=== PATIENT | female | born 1930 | race Caucasian/White ===

== ENCOUNTER 2016-11-05 16:45 | Emergency (ER) | payer OTHER ==
[~2016-11-05] VITALS: Ht 172.7 cm; Wt 81.6 kg
[~2016-11-05 16:45] MED LIST: APAP325 MG PO; ARMOUR THYROID120 M1 PO; ARMOUR THYROID120 MG PO; ARMOUR THYROID240 MG PO; ARMOUR THYROID60 M1 PO; ASPIR 8181 MG PO; CALCIUM 600 +1 EA10 PO; CEFTIN250 M1 PO; CEFUROXIME AXE500 MG PO; CEFUROXIME500 MG PO; CENTRUM SILVER1 TA1 PO; CIPRO 250MG250 MG PO; CIPRO 500MG (E500 MG PO; CIPROFLOXACIN250 M2 PO; COUMADIN 1 MG TA1 MG PO; COUMADIN 5 MG TA5 MG PO; COUMADIN2.5 M1 PO; CYCLOBENZAPRINE5 M2 PO; DILANTIN ER 10100 MG PO; FUROSEMIDE20 MG PO; LASIX40 MG PO; NORCO 325 MG-51 TAB PO; PHENYTOIN SODI100 MG PO; SIMVASTATIN20 M2 PO; TYLENOL WITH C1 EACH PO; VITAMIN D31000 UNI2 PO; ZOFRAN ODT4 M1 SL
[2016-11-05 16:54] VITALS: BP 157/80
--- NOTE | 2016-11-05 17:43 | ED GI/GU/ABDOMINAL COMPLAINT ---
History of Present Illness General Chief Complaint: Female Urogenital Problems Stated Complaint: ? UTI Source: patient Exam Limitations: no limitations Vital Signs & Intake/Output Vital Signs & Intake/Output Vital Signs Date Time Temp Pulse Resp B/P Pulse O2 O2 Flow FiO2 Ox Delivery Rate 11/05 1654 98.7 110 18 157/80 97 Room Air Allergies Coded Allergies: clarithromycin (N/V PER PT DAUGHTER 03/04/16) nitrofurantoin (N/V 03/04/16) Triage Note: PT COMPLAINS OF VAGINAL AREA IS VERY ITCHY, WAS TREATED WITH ABT FOR UTI OVER A WEEK AGO, Triage Nurses Notes Reviewed? yes ? N Is pt currently ? No HPI: This patient is an 86-year-old female with a history of recurrent urinary tract infections who presented to the emergency department today brought in by her daughter for evaluation of a possible urinary tract infection. The patient reported that she got over a urinary tract infection approximately 3 weeks ago. She was on ciprofloxacin. The patient reported that he is feeling some vaginal irritation and urinary frequency. No urgency or burning with urination. No blood in the urine. The patient is denying any fevers, chills, abdominal pain, nausea, vomiting, or back pain. (MAMI JACKSON,SONAL) Reconcile Medications Acetaminophen 325 MG CAPSULE 1 CAP PO PRN PAIN (Reported) Furosemide 40 MG TABLET 1 TAB PO PRN DIURETIC (Reported) Phenytoin Sodium Extended 100 MG CAPSULE 1 CAP PO AD SEIZURES (Reported) Phenytoin Sodium Extended 100 MG CAPSULE 2 CAP PO QPM SEIZURES (Reported) Phenytoin Sodium Extended 100 MG CAPSULE 2 CAP PO AD SEIZURES (Reported) Simvastatin (Simvastatin*) 20 MG TABLET 1 TAB PO QPM PREVENTATIVE (Reported) Sulfamethoxazole/Trimethoprim (Bactrim Ds Tablet) 800 MG-160 MG TABLET 1 TAB PO BID UTI Thyroid,Pork ([place] Thyroid) 240 MG TABLET 1 TAB PO DAILY THYROID (Reported) Warfarin Sodium (Coumadin) 2.5 MG TABLET 1 TAB PO DAILY BLOOD THINNER ( Reported) (DORIAN BACA MD) Past History Travel History Traveled to [place] past 21 day No Medical History Any Pertinent Medical History? 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 No (SONAL BOLAÑOS PA-C) Review of Systems Review of Systems Constitutional: Reports: no symptoms. EENTM: Reports: no symptoms. Respiratory: Reports: no symptoms. Cardiovascular: Reports: no symptoms. GI: Reports: no symptoms. Genitourinary: Reports: see HPI. Musculoskeletal: Reports: no symptoms. Skin: Reports: no symptoms. Neurological/Psychological: Reports: no symptoms. All Other Systems: Reviewed and Negative (SONAL BOLAÑOS PA-C) Physical Exam Physical Exam Gastrointestinal: normal bowel sounds, soft, non-tender, no organomegaly, NO REBOUND OR GUARDING. nO MASSES APPRECIATED. nO PERITONEAL SIGNS Comments: Well-developed well-nourished person in no acute distress HEENT: Normal EENT exam, head normocephalic, moist mucous membranes Neck: Supple Back: Normal inspection. No CVA tenderness Cardiovascular: Regular rate and rhythm with no murmurs, rubs or gallops Respiratory: No respiratory distress. Speaking in full sentences Extremity: Normal and equal pulses Neuro: Alert oriented x3, motor sensory normal, cranial nerves II through XII grossly intact. Skin: No appreciable rash on exposed skin, skin is warm and dry. Psych: Mood and affect is normal, memory and judgment is normal. Core Measures ACS in differential dx? No Severe Sepsis Present: No Septic Shock Present: No (SONAL BOLAÑOS PA-C) Progress Differential Diagnosis: hernia, kidney stone, ovarian cyst, ovarian torsion, PID /cervicitis, UTI/pyelo Plan of Care: Orders Procedure Date/time Status Straight Cath 11/05 172 Active CULTURE,URINE 11/05 171 Active URINALYSIS 11/05 1712 Complete Laboratory Tests 11/05/16 1803: Urinalysis LIGHT H, Urine Color STRAW, Urine Clarity CLEAR, Urine pH 6.5, Ur Specific [place] <= 1.005, Urine Protein NEG, Urine Ketones NEG, Urine Nitrite NEG, Urine Bilirubin NEG, Urine Urobilinogen 0.2, Ur Leukocyte Esterase TRACE H , Ur Microscopic SEDIMENT EXAMINED, Urine RBC RARE, Urine WBC RARE, Ur Epithelial Cells MOD H, Urine Hemoglobin TRACE-INTACT, Urine Glucose NEG Microbiology 11/05 1803 URINE ROUT: Urine Culture - RECD Initial ED EKG: none (MAMI JACKSON,SONAL) Departure Departure Disposition: HOME OR SELF CARE Condition: Stable Clinical Impression Primary Impression: Dysuria Referrals: ORTIZ MENDOZA MD (PCP/Family) Additional Instructions: Please take antibiotic as prescribed. Follow-up with your primary care physician. Be sure to stay hydrated. Return for any worsening symptoms or concerns. Departure Forms: Customer Survey General Discharge Information Prescriptions: Current Visit Scripts Sulfamethoxazole/Trimethoprim (Bactrim Ds Tablet) 1 TAB PO BID #10 TAB (SONAL BOLAÑOS PA-C) PA/COGNOS TM1 DEVELOPER Co-Sign Statement Statement: ED Attending supervision documentation- X I saw and evaluated the patient. I have also reviewed all the pertinent lab results and diagnostic results. I agree with the findings and the plan of care as documented in the PA's/COGNOS TM1 DEVELOPER's documentation. [] I have reviewed the ED Record and agree with the PA's/COGNOS TM1 DEVELOPER's documentation. [] Additions or exceptions (if any) to the PAs/COGNOS TM1 DEVELOPER's note and plan are summarized below: [] (PHUONG DINH,DORIAN)
[2016-11-05] MEDS ORDERED: ACETAMINOPHEN325 M3 PO (17:59)
[2016-11-05] MEDS ORDERED: FUROSEMIDE40 M1 PO (18:00)
[2016-11-05] MEDS ORDERED: ARMOUR THYROID240 MG PO (18:00)
[2016-11-05] MEDS ORDERED: BACTRIM DS TAB1 EACH PO (19:08)
== END 2016-11-05 19:25 ==
LOC: ERH 16:45
DX: R30.0 Dysuria (principal)
CPT/HCPCS: 81001; 87086

== ENCOUNTER 2016-12-24 09:05 | Emergency (ER) | payer OTHER ==
[~2016-12-24] VITALS: Ht 167.6 cm; Wt 86.2 kg
[~2016-12-24 09:05] MED LIST changes: +ACETAMINOPHEN325 M3 PO; +BACTRIM DS TAB1 EACH PO; +FUROSEMIDE40 M1 PO
--- NOTE | 2016-12-24 09:20 | ED GI/GU/ABDOMINAL COMPLAINT ---
History of Present Illness General Chief Complaint: Female Urogenital Problems Stated Complaint: ? UTI Source: patient, family Exam Limitations: no limitations Vital Signs & Intake/Output Vital Signs & Intake/Output Vital Signs Date Time Temp Pulse Resp B/P B/P Pulse O2 O2 Flow FiO2 Mean Ox Delivery Rate 12/24 0907 97.3 116 18 162/100 98 Room Air Allergies Coded Allergies: clarithromycin (N/V PER PT DAUGHTER 03/04/16) nitrofurantoin (N/V 03/04/16) Reconcile Medications Acetaminophen 325 MG CAPSULE 1 CAP PO PRN PAIN (Reported) Ciprofloxacin/Hydrocortisone (Cipro Hc Otic Suspension) 0.2 %-1 % DROPS.SUSP 3 GTT OT BID L otitis externa Furosemide 40 MG TABLET 1 TAB PO DAILY NEEDED PRN DIURETIC (Reported) Miconazole Nitrate (Vagistat-3) 200 MG-2 % (9 GRAM) KIT 1 A VAG BID vulvovaginitis Use kit per instructions Phenytoin Sodium Extended 100 MG CAPSULE 1 CAP PO AD SEIZURES (Reported) Phenytoin Sodium Extended 100 MG CAPSULE 2 CAP PO QPM SEIZURES (Reported) Phenytoin Sodium Extended 100 MG CAPSULE 2 CAP PO AD SEIZURES (Reported) Simvastatin (Simvastatin*) 20 MG TABLET 1 TAB PO QPM PREVENTATIVE (Reported) Thyroid,Pork ([place] Thyroid) 240 MG TABLET 1 TAB PO DAILY THYROID (Reported) Warfarin Sodium (Coumadin) 2.5 MG TABLET 1 TAB PO DAILY BLOOD THINNER ( Reported) Triage Nurses Notes Reviewed? yes (no triage note) ? n Is pt currently ? No HPI: Ms. Hansen is a 86 yo f w/ PMH of seizure, [place], A. fib, PE, osteoarthritis, lower extremity edema, L1 compression fracture, hypothyroidism and uterine cancer presenting to the emergency department with a complaint. Patient states over the past 3 days she had increased urinary frequency. No dysuria. She does endorse vaginal itching and swelling. Patient states she is unable to sleep due to the frequency of urinations. Patient denies fever or chills. She denies CVA tenderness or abdominal pain. No nausea, vomiting, diarrhea. No ill contacts. Patient also endorses left ear pain. She states she's had previous ear infections and has been wearing her hearing aids quite regularly, but feels ear fullness on the left. Patient denies any tenderness over the mastoid bone. Past History Travel History Traveled to [place] past 21 day No Medical History Any Pertinent Medical History? 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 No Review of Systems Review of Systems Constitutional: Reports: see HPI. EENTM: Reports: ear pain. Respiratory: Reports: no symptoms. Cardiovascular: Reports: no symptoms. GI: Reports: no symptoms. Genitourinary: Reports: frequency, urgency. Denies: discharge, dysuria, hesitation, nocturia, pain. Musculoskeletal: Reports: no symptoms. Skin: Reports: dryness, erythema. Neurological/Psychological: Reports: no symptoms. Hematologic/Endocrine: Reports: no symptoms. Immunologic/Allergic: Reports: no symptoms. All Other Systems: Reviewed and Negative Physical Exam Physical Exam General Appearance: well developed/nourished, no apparent distress, alert, awake Head: atraumatic, normal appearance, active bleeding Eyes: Bilateral: normal appearance, PERRL, EOMI. Ears, Nose, Throat, Mouth: hard of hearing, exudate in L ear canal, no pain of pinna or tragas. unable to visualize TM Neck: normal inspection, full range of motion Respiratory: normal breath sounds, chest non-tender, no respiratory distress Cardiovascular: regular rate/rhythm, edema, normal peripheral pulses Gastrointestinal: normal bowel sounds, soft, non-tender Rectal: deferred Pelvic: erythematous and swollen vulva. White thick discharge noted from vagina Back: normal inspection, normal range of motion Extremities: bilateral lower extremity edema. +2 pitting to anterior calvert. Neurologic/Psych: no motor/sensory deficits, awake, alert, oriented x 3, normal mood/affect Skin: mild erythema and venous stasis to bilateral legs Core Measures ACS in differential dx? No Severe Sepsis Present: No Septic Shock Present: No Progress Differential Diagnosis: hernia, PID/cervicitis, peptic ulcer, PUD/GERD, UTI/ pyelo, chris Plan of Care: Orders Procedure Date/time Status URINALYSIS 12/24 910 Complete Laboratory Tests 12/24/16 0917: Urine Color YEL, Urine Clarity CLEAR, Urine pH 6.5, Ur Specific [place] <= 1.005 , Urine Protein NEG, Urine Ketones NEG, Urine Nitrite NEG, Urine Bilirubin NEG, Urine Urobilinogen 0.2, Ur Leukocyte Esterase MOD H, Ur Microscopic SEDIMENT EXAMINED, Urine RBC RARE, Urine WBC 1-3 H, Ur Epithelial Cells MANY H, Urine Bacteria MOD H, Urine Hemoglobin TRACE-INTACT, Urine Glucose NEG Patient is well-appearing and nontoxic. Presenting with increased vaginal itching as well as increased urinary frequency. Urinalysis obtained in waiting room which appears to be grossly dirty with many epithelial cells and leukocyte esterase positive. There is very little white blood cells noted in the urine. This is likely a contaminated sample. Physical exam reveals an irritated erythematous. With thick white cottage cheeselike discharge. Patient is given Diflucan here in emergency department and will give prescription for Clement resolved to assist with itching and pain. Patient also noted to have a left otitis externa. Will give ofloxacin drops and have the patient follow up with her primary care doctor in 3-4 days for evaluation of a possible otitis media. Patient's lower extremity edema is chronic in nature and unchanged per the daughter. Will also follow-up with her PMD to assess if using more Lasix would be beneficial in decreasing her leg swelling. (JULIANO DINH,LATASHA) Initial ED EKG: none Departure Departure Time of Disposition: 1030 Disposition: HOME OR SELF CARE Condition: Stable Clinical Impression Primary Impression: Vulvovaginal candidiasis Secondary Impressions: Otitis externa of left ear Qualifiers: Otitis externa type: other infective Chronicity: acute Qualified Code: H60.392 - Other infective otitis externa, left ear Referrals: KELLY DINH,ORTIZ (PCP/Family) Additional Instructions: Please apply the ofloxacin drops to the left ear as indicated on the prescription. Use the Clotrimazole on the external genitalia and within the vagina to assist in decreasing the itching and pain. Departure Forms: Customer Survey General Discharge Information Prescriptions: Current Visit Scripts Miconazole Nitrate (Vagistat-3) 1 A VAG BID #1 KIT Use kit per instructions Ciprofloxacin/Hydrocortisone (Cipro Hc Otic Suspension) 3 GTT OT BID #10 ML
[2016-12-24] MEDS ORDERED: VAGISTAT-31 EACH VAG (10:37)
[2016-12-24] MEDS ORDERED: CIPRO HC OTIC S10 ML OT (10:37)
[2016-12-24 11:01] VITALS: BP 149/66
== END 2016-12-24 11:03 ==
LOC: ERH 09:05
DX: B37.3 Candidiasis of vulva and vagina (principal); H60.92 Unspecified otitis externa, left ear
CPT/HCPCS: 81001

== ENCOUNTER 2017-01-12 10:31 | Inpatient (IN) | payer OTHER ==
[~2017-01-12] VITALS: Ht 167.6 cm; Wt 81.6 kg
[~2017-01-12 10:31] MED LIST changes: +CIPRO HC OTIC S10 ML OT; +VAGISTAT-31 EACH VAG
--- NOTE | 2017-01-12 10:37 | NUR ---
PT TO ED WITH ZULMA, SENT BY DR ALLAN'S OFFICE FOR RAPID HEARTRATE. PT WAS AT ENRIQUETA'S OFFICE THIS AM FOR A CHECK UP, HER HEARTRATE WAS FOUND TO BE FAST. PT THEN SAW NURSE IN DR ALLAN'S OFFICE, EKG WAS DONE. PT SENT TO ED FOR EVAL. PT HAS NO COMPLAINTS.
--- NOTE | 2017-01-12 10:45 | NUR ---
UPON ARRIVAL TO ROOM, PT NOTED TO BE IN RAPID AFIB. IV EST TO RIGHT AC. DR. CLEMONS AWARE AND AT BEDSIDE FOR EVAL.
--- NOTE | 2017-01-12 10:54 | ED CARDIAC/CP/PALPITATIONS ---
History of Present Illness General Chief Complaint: General Adult Stated Complaint: SENT BY DR GARLAND FOR EVAL Source: patient, old records Exam Limitations: no limitations Vital Signs & Intake/Output Vital Signs & Intake/Output Vital Signs Date Time Temp Pulse Resp B/P B/P Pulse O2 O2 Flow FiO2 Mean Ox Delivery Rate 01/12 1227 125 128/82 01/12 1225 125 18 128/82 96 Room Air 01/12 1130 150 116/83 01/12 1128 Room Air Room Air 01/12 1120 150 15 116/83 94 Room Air Room Air 01/12 1106 129 15 111/73 95 Room Air Room Air 01/12 1105 156 20 135/93 01/12 1035 97.2 94 20 135/93 97 Room Air Allergies Coded Allergies: clarithromycin (N/V PER PT DAUGHTER 03/04/16) nitrofurantoin (N/V 03/04/16) Reconcile Medications Acetaminophen 325 MG CAPSULE 1 CAP PO PRN PAIN (Reported) Diphenoxylate HCl/Atropine (Lomotil 2.5-0.025 MG Tablet) 2.5 MG-0.025 MG TABLET 1 TAB PO TID PRN DIARRHEA (Reported) Furosemide 40 MG TABLET 1 TAB PO DAILY NEEDED PRN DIURETIC (Reported) Phenytoin Sodium Extended 100 MG CAPSULE 2 CAP PO QPM SEIZURES (Reported) Phenytoin Sodium Extended 100 MG CAPSULE 1 CAP PO MoThFr SEIZURES (Reported) Phenytoin Sodium Extended 100 MG CAPSULE 2 CAP PO SuTuSa SEIZURES (Reported) Simvastatin (Simvastatin*) 20 MG TABLET 1 TAB PO QPM PREVENTATIVE (Reported) Thyroid,Pork ([place] Thyroid) 240 MG TABLET 1 TAB PO DAILY THYROID (Reported) Warfarin Sodium (Coumadin) 2.5 MG TABLET 1 TAB PO DAILY BLOOD THINNER ( Reported) Triage Note: PT TO ED WITH ZULMA, SENT BY DR GARLAND'S OFFICE FOR RAPID HEARTRATE. PT WAS AT ENRIQUETA'S OFFICE THIS AM FOR A CHECK UP, HER HEARTRATE WAS FOUND TO BE FAST. PT THEN SAW NURSE IN DR GARLAND'S OFFICE, EKG WAS DONE. PT SENT TO ED FOR EVAL. PT HAS NO COMPLAINTS. Triage Nurses Notes Reviewed? yes HPI: Patient had a routine visit with her primary care physician this morning. Patient was found to be tachycardic and then uncontrolled A. fib. 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 At landscape foreman office she had EKG which confirmed A. fib with RVR. Patient sent to the emergency room for evaluation. Patient denies any chest pain or palpitations. There is no shortness of breath. No dyspnea on exertion. No orthopnea. No nausea or vomiting. Past History Travel History Traveled to [place] past 21 day No Medical History Any Pertinent Medical History? 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 No Review of Systems Review of Systems Constitutional: Reports: no symptoms. EENTM: Reports: no symptoms. Respiratory: Reports: no symptoms. Cardiovascular: Reports: no symptoms. GI: Reports: no symptoms. Genitourinary: Reports: no symptoms. Musculoskeletal: Reports: no symptoms. Skin: Reports: no symptoms. Neurological/Psychological: Reports: no symptoms. Hematologic/Endocrine: Reports: no symptoms. Immunologic/Allergic: Reports: no symptoms. All Other Systems: Reviewed and Negative Physical Exam Physical Exam General Appearance: well developed/nourished, alert, awake, mild distress Head: atraumatic, normal appearance Eyes: Bilateral: PERRL, EOMI. Ears, Nose, Throat: normal pharynx, normal ENT inspection, hearing grossly normal Neck: normal inspection, supple, full range of motion Respiratory: normal breath sounds, chest non-tender, no respiratory distress, lungs clear Cardiovascular: normal peripheral pulses, tachycardia, irregularly irregular Gastrointestinal: normal bowel sounds, soft, non-tender, no organomegaly Back: normal inspection, normal range of motion Extremities: normal inspection, normal capillary refill, normal range of motion, no edema Neurologic/Psych: no motor/sensory deficits, awake, alert, oriented x 3, normal gait, normal mood/affect Skin: intact, normal color, warm/dry Lymphatic: no anterior cervical ling Core Measures ACS in differential dx? Yes ASA ordered for poss ACS? No-ACS ruled out Severe Sepsis Present: No Septic Shock Present: No Progress Differential Diagnosis: AMI, atrial fibrillation, hyperthyroid, myocarditis, pericarditis, pneumonia, pneumothorax, pulmonary embolism Plan of Care: Orders Procedure Date/time Status Regular Diet 01/12 D Active Saline Lock 01/12 1244 Active Misc Message 01/12 1244 Active ED Holding Orders 01/12 1244 Active Vital Signs 01/12 1244 Active Activity/Ambulation 01/12 1244 Active Code Status 01/12 1244 Active Patient Data 01/12 1235 Active Telemetry/Manager Part 01/12 1053 Active TROPONIN LEVEL 01/12 1053 Complete PARTIAL THROMBOPLASTIN TIME 01/12 1053 Complete PROTHROMBIN TIME 01/12 1053 Complete MAGNESIUM 01/12 1053 Complete DILANTIN 01/12 1053 Complete COMPREHENSIVE METABOLIC PANEL 01/12 1053 Complete CBC WITHOUT DIFFERENTIAL 01/12 1053 Complete EKG 01/12 1037 Active Current Medications Sig/Liudmila Start time Last Medication Dose Stop Time Status Admin Diltiazem HCl 125 MG Q12H 01/12 1215 AC (Cardizem DRIP) Dextrose/Water 100 ML (D5W) Laboratory Tests 01/12/17 1105: Anion Gap 6, Estimated GFR > 60, BUN/Creatinine Ratio 18.3, Glucose 86, Calcium 9.0, Magnesium 1.8, Total Bilirubin 0.7, AST 31, ALT 39, Alkaline Phosphatase 164 H, Troponin I < 0.01, Total Protein 6.9, Albumin 3.5, Globulin 3.4, Albumin /Globulin Ratio 1.0 L, PT 26.3 H, INR 2.53 H, APTT 39 H, CBC w Diff NO MAN DIFF REQ, RBC 4.37, MCV 90.6, MCH 29.3, RDW 15.2 H, MPV 9.1, Gran % 66.6, Lymphocytes % 17.3 L, Monocytes % 13.6 H, Eosinophils % 2.1, Basophils % 0.4, Absolute Granulocytes 3.2, Absolute Lymphocytes 0.8 L, Absolute Monocytes 0.6, Absolute Eosinophils 0.1, Absolute Basophils 0, PUBS MCHC 32.4 L, Phenytoin 8.0 L Diagnostic Imaging: Viewed by Me: Radiology Read. Discussed w/RAD: Radiology Read. Initial ED EKG: AFIB WITH RVR AND NSSTT CHANGES. Prior EKG: changed Rhythm Strip: atrial fibrillation Comments: After 2 doses of IV Cardizem her heart rate remains elevated in the 1 teens to 120s. At this point Cardizem drip will be started. Dr. Garland and has been consult. Departure Departure Disposition: STILL A PATIENT Condition: Guarded Clinical Impression Primary Impression: Atrial fibrillation with RVR Referrals: ORTIZ MENDOZA MD (PCP/Family) Departure Forms: Customer Survey General Discharge Information Admission Note Spoke With: ANÍBAL LUDWIG MD Documentation of Exam: Documentation of any treatments & extenuating circumstances including Concerns Regarding Discharge (functional status, medication knowledge or non-compliance, living conditions, etc.) that warrant an admission rather than observation: [ Cardizem drip, cardiology consultation, telemetry monitoring, serial enzymes] Critical Care Note Critical Care Note Critical Care Time: mins: (75 MIN)
--- NOTE | 2017-01-12 11:09 | NUR ---
PT MEDICATED WITH CARDIZEM PER EMAR. RADHA ALVARADO VERIFIED DOSE.
[2017-01-12 11:16] LABS: ABSOLUTE BASOPHIL COUNT 0 /CUMM (0.0-0.2); ABSOLUTE EOSINOPHIL COUNT 0.1 /CUMM (0.0-0.7); ABSOLUTE GRANULOCYTE CT 3.2 /CUMM (1.4-6.5); ABSOLUTE LYMPH COUNT 0.8 /CUMM (1.2-3.4); ABSOLUTE MONOCYTE COUNT 0.6 /CUMM (0.10-0.60); BASOPHIL % 0.4 % (0.0-2.0); EOSINOPHIL % 2.1 % (0-5); GRANULOCYTE % 66.6 % (42.2-75.2); HEMATOCRIT 39.6 % (37-47); MEAN CORPUSCULAR HGB 29.3 PG (27.0-31.0); MEAN CORPUSCULAR HGB CONC 32.4 G/DL (33.0-37.0); MEAN CORPUSCULAR VOLUME 90.6 FL (81.0-99.0); MEAN PLATELET VOLUME 9.1 FL (7.4-10.4); PLATELET COUNT 170 /CUMM (130-400); RBC DISTRIBUTION WIDTH 15.2 % (11.5-14.5); RED BLOOD CELL CT 4.37 /CUMM (4.20-5.40); WHITE BLOOD CELL COUNT 4.7 /CUMM (4.8-10.8)
--- NOTE | 2017-01-12 11:16 | RADIOLOGY REPORT ---
EXAMINATION: XR PORTABLE CHEST CLINICAL INFORMATION: Chest pain COMPARISON: 08/01/2016 TECHNIQUE: Portable frontal view of the chest was obtained. FINDINGS: Lung volumes are symmetric. There is a small right pleural effusion with adjacent basilar opacity. There is also patchy opacity at the left lung base with a suspected trace pleural effusion. No pneumothorax is seen. There is mild fullness of the central vasculature. Cardiac size is within normal limits. Calcification is present at the aortic arch. No acute osseous findings are seen. IMPRESSION: Small right and trace left pleural effusions with adjacent bibasilar opacities which may reflect atelectasis or potentially developing consolidation. A component of central vascular congestion may be present.
[2017-01-12] MEDS ORDERED: LOMOTIL 2.5-0.1 EACH PO (11:17)
[2017-01-12 11:25] LABS: PT 26.3 SEC (9.4-12.5); PTT 39 SEC (25-37)
--- NOTE | 2017-01-12 11:30 | NUR ---
PT MEDICATED WITH SECOND DOSE OF 10 MG CARDIZEM PUSH FOR RAPID AFIB BETWEEN 120 AND 150.
--- NOTE | 2017-01-12 12:16 | NUR ---
PHARMACY CALLED FOR GABRIELA BARON
--- NOTE | 2017-01-12 12:49 | NUR ---
PHARM WILL BRING GABRIELA MARTINEZ.
--- NOTE | 2017-01-12 13:00 | NUR ---
PT'S HEART RATE CONTINUES TO BE WNL THEN INCREASES TO 130'S AND OCCASIONALLY 140'S. CARDIZEM GTT INFUSING NOW AT 10ML/HR.
--- NOTE | 2017-01-12 13:05 | NUR ---
PT TO ROOM 178 BED1
--- NOTE | 2017-01-12 13:14 | NUR ---
REPORT GIVEN TO WARNER ALVARADO.
--- NOTE | 2017-01-12 13:30 | NUR ---
PT ASSISTED OFF COMMODE AND ONTO STRETCHER. PT REFUSING TO REMOVE PANTS, AWARE.
--- NOTE | 2017-01-12 13:47 | History & Physical ---
See Addendum MELISSA DINHRAEANN 01/12/17 0402: General Information and HPI Statement: I have seen and personally examined GABBY BASS and documented this H&P. The patient is a 87 year old F who presented with a patient stated chief complaint of []. Exam Limitations: no limitations History of Present Illness: This is a 87-year-old with past medical history of pulmonary embolism currently on Coumadin therapy, hypothyroidism, history of hyperlipidemia paroxysmal atrial fibrillation and was previously on metoprolol therapy who presented to the [facility] after being referred from the primary care physician for elevated heart rate. The patient's EKG done in the emergency department showed rapid atrial fibrillation and was then asked by the ordinary seaman to come and evaluated in the hospital. When I saw the patient the patient was awake alert oriented without any distress and did not have any palpitations or chest pain. The patient who was present at the bedside told that the patient has been having persistent watery diarrhea for the last 3-5 days and has been becoming antidiarrheal medications. She does not have the patient denies any chest pain palpitations. She also has noticd increased swelling of her leg. She takes lasix as needed for her leg swelling.She has been taking them once a week. 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 Needs Assist: bathing. Ambulation: after fall patient has been largely non ambulatory. IADLs Independent: medication admin. Needs Assist: housework, food prep, transportation. Unknown: shopping, finances, telephone. Review of Systems Review of Systems Constitutional: Reports: see HPI. EENTM: Reports: see HPI. Musculoskeletal: Reports: see HPI. Exam & Diagnostic Data Last 24 Hrs of Vital Signs/I&O Vital Signs Date Time Temp Pulse Resp B/P B/P Pulse O2 O2 Flow FiO2 Mean Ox Delivery Rate 01/12 1352 97.7 105 18 124/68 96 Room Air 01/12 1227 125 128/82 01/12 1225 125 18 128/82 96 Room Air 01/12 1130 150 116/83 01/12 1128 Room Air Room Air 01/12 1120 150 15 116/83 94 Room Air Room Air 01/12 1106 129 15 111/73 95 Room Air Room Air 01/12 1105 156 20 135/93 01/12 1035 97.2 94 20 135/93 97 Room Air Intake & Output 01/12 1600 01/12 0800 01/12 0000 Intake Total 0 Output Total Balance 0 Intake, Oral 0 Patient 180 lb Weight Weight Estimated Measurement Method Physical Exam General Appearance Alert, Oriented X3, Cooperative Skin No Rashes, No Breakdown Skin Temp/Moisture Exam: Cool/Dry HEENT Atraumatic, PERRLA Neck No JVD, No thryomegaly Lymphatic Axillary nl Cardiovascular irregulalrly irregular Abdomen Soft, No Tenderness Extremities right leg swelling with some reddness. 2+ leg edema. Assessment/Plan Assessment: This is a 87-year-old female with a past medical history of paroxysmal atrial fibrillation DVT/pulmonary embolism on any coagulation with Coumadin therapy who presented to the [facility] after being referred by the primary care physician for persistent tachycardia. In the ER the patient was found to be in rapid atrial fibrillation with rapid ventricular response Vitals at the time of admission showed a blood pressure of 158/60 heart rate of 1 65/m respiration rate of 18, saturation of 96% on room air Labs at the time of admission shows WBC of 4700, normal hemoglobin and hematocrit, INR of 2.75 Chest x-ray: Small right and trace left pleural effusions with adjacent bibasilar opacities which may reflect atelectasis or potentially developing consolidation. A component of central vascular congestion may be present. Assessment 1. Atrial fibrillation with rapid ventricular response: The patient might be in rapid ventricular response most likely secondary to acurte dirrhea an acute underlying diarrhea which is likely viral in origin. 2. History of hypothyroidism 3. History of hyperlipidemia History of pulmonary embolism on Coumadin therapy 4. History of seizures currently on phenytoin 5.Unilater swelling of the leg and reddness. Plan Admit to telemetry floor Start the patient on IV Cardizem drip at 10 ml/min Anticoagulation with Coumadin continue trending INR currently therapeutic we will dose the Coumadin tomorrow as per the INR. Check serial troponins and EKG Continue with other home medications DVT prophylaxis as maintain the Coumadin Pain pathway We can wait on cardiology and comment on the comtinuation of lasix. Will do US dooppler of the right leg to r/o dvt. Transthoracic echocardiogram send sample to lab for c diff if has persistent diarrhea. Dr. Oneal has been consulted to follow the patient with us As Ranked By This Provider Problem List: 1. Atrial fibrillation with RVR 2. Elevated INR Core Measures/Miscellaneous Acute Coronary Syndrome ACS Diagnosis: No Cerebrovascular Accident CVA/TIA Diagnosis: No Congestive Heart Failure CHF Diagnosis: No Venous Thromboembolism VTE Risk Factors: Acute medical illness, Age > 40 No [facility] VTE prophylaxis d/t: VTE low risk, No contraindications No VTE Pharm Prophylaxis d/t: VTE low risk, No contraindications VTE Diagnosis: No VTE Type: NONE VTE Confirmed by (Test): NONE Severe Sepsis Severe Sepsis Present: No Septic Shock Septic Shock Present: No Miscellaneous Documentation Attending Case Discussed With: LETA GAMBINO MD [facility] Physician[facility] Patient sees these Specialists dr oneal Level of Patient Care: Telemetry LETA GAMBINO MD 01/12/17 1627: General Information and HPI Allergies/Medications Home Med list Acetaminophen 325 MG CAPSULE 1 CAP PO PRN PAIN (Reported) Diphenoxylate HCl/Atropine (Lomotil 2.5-0.025 MG Tablet) 2.5 MG-0.025 MG TABLET 1 TAB PO TID PRN DIARRHEA (Reported) Furosemide 40 MG TABLET 1 TAB PO DAILY NEEDED PRN DIURETIC (Reported) Phenytoin Sodium Extended 100 MG CAPSULE 2 CAP PO BID SEZIURES (Reported) Simvastatin (Simvastatin*) 20 MG TABLET 1 TAB PO QPM PREVENTATIVE (Reported) Thyroid,Pork ([place] Thyroid) 240 MG TABLET 1 TAB PO DAILY THYROID (Reported) Warfarin Sodium (Coumadin) 2.5 MG TABLET 1 TAB PO DAILY BLOOD THINNER ( Reported) Attending MD Review Statement Attending Statement Attending MD Statement: examined this patient, discuss w/resident/PA/EMPLOYEE RELATIONS ADVISOR, agreed w/resident/PA/EMPLOYEE RELATIONS ADVISOR, reviewed EMR data (avail), discussed with nursing, reviewed images, amended to note Attending Assessment/Plan: The patient is an 87 yo female with h/o pulmonary embolism (on chronic coumadin therapy), hypothyroidism, HL, PAF (prior Metoprolol therapy that was discontinued as she had been in NSR) and seizure disorder who presented in the ED from her PCP with tachycardia and recurrent atrial fibrillation with RVR (HR 150). The patient denied any palpitations, chest pain, or dyspnea. She has has some loose bowel movements over last week. 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 Physical Exam: VS: T 97.2, P 94-150, R 15-20, BP 124/68, PO 96% HEENT: eyes- PERRLA, EOMI rory- moist mucosa Neck: no JVD or bruits Chest: clear Cor: tachy, irreg, nl S1, S2 w/o murm Abd: BS+, soft, NT Ext: + bilateral edema (tr-1+ on left; 2+ on right) with stasis changes and erythema on distal RLE (pretibial) (patient states edema improved since yesterday) Neuro: alert, non-focal exam Labs/Tests- as above Impression/Plan: #Recurrent Atrial Fibrillation with Rapid Ventricular Response- as above, patient was largely asymptomatic. Had previously been on beta christopher ( metoprolol) which had been stopped as had been in NSR. Is therapeutic on Coumadin. Plan: Admit to telemetry- IV Cardizem drip begun. Check serial troponin I levels. Cardiology consult Dr. Oneal. Continue Coumadin. Will check TSH. #Lower Extremity Edema- is asymmetric with RLE>LLE and patient notes significant increase in RLE in last 2 days. Most likely venous stasis and ?secondary to afib. Doubt DVT with therapeutic INR. Plan: Elevate legs. Check venous duplex RLE. Continue Lasix. #Hypothyroid- on [place] thyroid. Plan: As above, will check TSH/Free T4/T3. #Hyperlipidemia- on Simvastatin. Plan: Continue Simvastatin. #H/O ?Seizure Disorder- on Dilantin. Plan: Continue Dilantin. #Diarrhea- none at present. Plan: Check stool studies if diarrhea continues.
[2017-01-12 13:52] VITALS: BP 124/68
[2017-01-12] MEDS ORDERED: DILANTIN100 M1 PO (16:26)
--- NOTE | 2017-01-12 16:27 | Admission Certification ---
Admission Certification Certification Statement - As attending physician, I certify that at the time of - admission, based on clinical presentation, severity of - symptoms, need for further diagnostic testing and - therapeutic interventions, and risk of adverse outcomes - without in-hospital treatment, in my clinical assessment, - this patient requires an acute hospital stay for a minimum - of two nights or longer. I have also considered psychsocial - factors such as support system, advanced age, financial - issues, cognitive issues, and failed out-patient treatments, - past re-admission history, safety of patient, and lack of - compliance as applicable. Specific rationale supporting this admission is: The patient presents with recurrent atrial fibrillation with rapid ventricular rate. Requires admission to telemetry for IV Cardizem drip, serial troponin levels, Cardiology consult. RLE venous duplex.
--- NOTE | 2017-01-12 16:38 | NUR ---
PT TO HAVE US DONE AT THE BEDSIDE AT 2029. OK PER RAEANN
[2017-01-12 16:39] VITALS: BP 114/68
--- NOTE | 2017-01-12 17:49 | Cons- Cardiology ---
General Information and HPI Consulting Request Date of Consult: 01/12/17 Requested By: LETA GAMBINO MD Reason for Consult: Atrial fibrillation with a rapid ventricular response. Source of Information: patient, old records Exam Limitations: poor historian History of Present Illness: Mrs. Cherelle Hansen is an 87-year-old female with a long-standing history of tobacco use, COPD, hypothyroidism, dyslipidemia, seizure disorder, possible TIA, and remote brief bouts of atrial fibrillation versus SVT who presented from her PCPs office (Gaby Hudson M.D.) after she was found to be tachycardic with an irregularly irregular suspicious for atrial fibrillation. In the ED the suspicion of her being in atrial fibrillation with a rapid ventricular response was confirmed. She received IV diltiazem 10 mg 2 with transient improvement in the ventricular response, but then returned to the more rapid 140+ bpm rates and, as such, was placed on an IV diltiazem drip at 10 mg/ hour. Of note is the fact that she was evaluated and treated for a urinary tract infection a couple of weeks back and subsequent to that developed diarrhea. She also has chronic intermittent bilateral lower extremity edema, right greater than left, but as noted this to the much more severe of late. When she was first discovered to be having brief intermittent bouts of PAF vs SVT in September 2011, she had been experiencing significant diarrhea and was mildly hypokalemic. She was not placed on long-term anticoagulation at that time given a history of recurrent falls, one of which included a head strike. She was last hospitalized here (03/06-03/08/2016) after presenting with shortness of breath and the discovery of multiple pulmonary emboli. Her last echocardiogram (05/01/2014) revealed: A normal size left ventricle with mild concentric left ventricular hypertrophy, and normal systolic function with an estimated ejection fraction of 55%, normal right ventricular size and function, mild biatrial dilatation, he age-related valvular changes, no pericardial effusion, and a normal size aortic root. The Doppler portion of the study revealed mild mitral, mild aortic, mild tricuspid, and trace pulmonic regurgitation, moderate pulmonary hypertension, and stage I diastolic dysfunction. Allergies/Medications Allergies: Coded Allergies: clarithromycin (N/V PER PT DAUGHTER 03/04/16) nitrofurantoin (N/V 03/04/16) Home Med List: Acetaminophen 325 MG CAPSULE 1 CAP PO PRN PAIN (Reported) Diphenoxylate HCl/Atropine (Lomotil 2.5-0.025 MG Tablet) 2.5 MG-0.025 MG TABLET 1 TAB PO TID PRN DIARRHEA (Reported) Furosemide 40 MG TABLET 1 TAB PO DAILY NEEDED PRN DIURETIC (Reported) Phenytoin Sodium Extended 100 MG CAPSULE 2 CAP PO BID SEZIURES (Reported) Simvastatin (Simvastatin*) 20 MG TABLET 1 TAB PO QPM PREVENTATIVE (Reported) Thyroid,Pork ([place] Thyroid) 240 MG TABLET 1 TAB PO DAILY THYROID (Reported) Warfarin Sodium (Coumadin) 2.5 MG TABLET 1 TAB PO DAILY BLOOD THINNER ( Reported) Review of Systems Review of Systems: A 14 point system review was obtained and was noncontributory, other than for the fact that she has hearing loss, bilateral hearing aids, decreased vision, wears glasses, etc. 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 Home Services at Home: None, [facility] Primary Language: Telugu Smoking Status: Never Smoked ETOH Use: denies use Illicit Drug Use: denies illicit drug use Functional Ability ADLs Independent: dressing, eating, toileting. Needs Assist: bathing. Ambulation: after fall patient has been largely non ambulatory. IADLs Independent: medication admin. Needs Assist: housework, food prep, transportation. Unknown: shopping, finances, telephone. Exam & Diagnostic Data Vital Signs and I&O Vital Signs Date Time Temp Pulse Resp B/P B/P Pulse O2 O2 Flow FiO2 Mean Ox Delivery Rate 01/12 1639 97.7 114 18 114/68 93 Room Air 01/12 1352 97.7 105 18 124/68 96 Room Air 01/12 1227 125 128/82 01/12 1225 125 18 128/82 96 Room Air 01/12 1130 150 116/83 01/12 1128 Room Air Room Air 01/12 1120 150 15 116/83 94 Room Air Room Air 01/12 1106 129 15 111/73 95 Room Air Room Air 01/12 1105 156 20 135/93 01/12 1035 97.2 94 20 135/93 97 Room Air Intake & Output 01/12 1600 01/12 0800 01/12 0000 01/11 1600 01/11 0800 01/11 0000 Intake Total 0 Output Total Balance 0 Intake, Oral 0 Patient 180 lb Weight Weight Estimated Measurement Method Physical Exam: Well-developed, overweight elderly female in no acute distress with nasal oxygen in place. Vital signs: See above. HEENT: Normocephalic, atraumatic, EOMI, slightly dry mucous membranes. Neck: No JVD, no bruits. Lungs: Decreased breath sounds bilaterally with mild bilateral expiratory wheezing. Heart: S1, S2 with grade 1-2/6 systolic murmur best heard near the base. PMI fifth ICS at MCL. No gallop or rub ratio. Abdomen: Soft, nontender, positive bowel sounds. Extremities: Bilateral lower extremity erythema and edema: 2+ right, 1-2+ left. Labs/Kurt Results: Laboratory Tests 01/12 1105 Chemistry Sodium (137 - 145 mmol/L) 140 Potassium (3.5 - 5.1 mmol/L) 4.3 Chloride (98 - 107 mmol/L) 107 Carbon Dioxide (22 - 30 mmol/L) 28 Anion Gap (5 - 16) 6 BUN (7 - 17 mg/dL) 11 Creatinine (0.5 - 1.0 mg/dL) 0.6 Estimated GFR (>60 ml/min) > 60 BUN/Creatinine Ratio (7 - 25 %) 18.3 Glucose (65 - 99 mg/dL) 86 Calcium (8.4 - 10.2 mg/dL) 9.0 Magnesium (1.6 - 2.3 mg/dL) 1.8 Total Bilirubin (0.2 - 1.3 mg/dL) 0.7 AST (14 - 36 U/L) 31 ALT (9 - 52 U/L) 39 Alkaline Phosphatase (<127 U/L) 164 H Troponin I (< 0.11 ng/ml) < 0.01 Total Protein (6.3 - 8.2 g/dL) 6.9 Albumin (3.5 - 5.0 g/dL) 3.5 Globulin (1.9 - 4.2 gm/dL) 3.4 Albumin/Globulin Ratio (1.1 - 2.2 %) 1.0 L TSH (0.270 - 4.200 uIU/mL) 0.995 Free T4 (0.85 - 1.93 ng/dL) 1.17 Coagulation PT (9.4 - 12.5 SEC) 26.3 H INR (0.90 - 1.19) 2.53 H APTT (25 - 37 SEC) 39 H Hematology CBC w Diff NO MAN DIFF REQ WBC (4.8 - 10.8 /CUMM) 4.7 L RBC (4.20 - 5.40 /CUMM) 4.37 Hgb (12.0 - 16.0 G/DL) 12.8 Hct (37 - 47 %) 39.6 MCV (81.0 - 99.0 FL) 90.6 MCH (27.0 - 31.0 PG) 29.3 RDW (11.5 - 14.5 %) 15.2 H Plt Count (130 - 400 /CUMM) 170 MPV (7.4 - 10.4 FL) 9.1 Gran % (42.2 - 75.2 %) 66.6 Lymphocytes % (20.5 - 51.1 %) 17.3 L Monocytes % (1.7 - 9.3 %) 13.6 H Eosinophils % (0 - 5 %) 2.1 Basophils % (0.0 - 2.0 %) 0.4 Absolute Granulocytes (1.4 - 6.5 /CUMM) 3.2 Absolute Lymphocytes (1.2 - 3.4 /CUMM) 0.8 L Absolute Monocytes (0.10 - 0.60 /CUMM) 0.6 Absolute Eosinophils (0.0 - 0.7 /CUMM) 0.1 Absolute Basophils (0.0 - 0.2 /CUMM) 0 PUBS MCHC (33.0 - 37.0 G/DL) 32.4 L Toxicology Phenytoin (10.0 - 20.0 ug/mL) 8.0 L Diagnostic Data EKG Results (01/12/2017) atrial fibrillation with a rapid ventricular response and minor nondiagnostic T-wave abnormalities in diffuse leads. No significant change from tracing performed in our office earlier today. CXR Results (01/12/2017) Small right and trace left pleural effusions with adjacent bibasilar opacities which may reflect atelectasis or potentially developing consolidation. A component of central vascular congestion may be present. Assessment/Plan Assessment/Plan 87-year-old female with a long-standing history of tobacco use, COPD, hypothyroidism, HLD, seizure disorder, possible TIA, multiple pulmonary emboli for which she was placed on warfarin anticoagulation April 2014, and brief bouts of PAF vs SVT in September 2011 w/o long-term anticoagulation given fall risk who presented from her PCPs (Gaby Hudson M.D.) office after she was found to be tachycardic with an irregularly irregular pulse suspicious for atrial fibrillation with a rapid ventricular response and worsening right lower extremity edema. In the ED the suspicion of her being in atrial fibrillation with a rapid ventricular response was confirmed. She received IV diltiazem 10 mg 2 with transient improvement in the ventricular response, but then returned to the more rapid 140+ bpm rates and, as such, was placed on an IV diltiazem drip at 10 mg/ hour. Recommendations: * Telemetry admission, follow-up ECG and troponins. * Continue IV diltiazem for control of the ventricular response to her atrial fibrillation. * When rate control achieved switch to by mouth diltiazem according to the formula: Total oral daily dosage (mg/day) = [rate (mg/hr) 3+3] 10. Eg.: 3 mg/hr IV would be roughly equal 120 mg/day by mouth. * Cut back on simvastatin dosage to 10 mg daily given potential interaction with diltiazem and results of recent lipid panel. * Replete potassium and aim to maintain a level of between 4.0-4.5 mEq per liter. * Replete magnesium and aim to maintain level at or above 2.0 mEq per liter. * Gently diurese based on physical examination, chest x-ray findings, etc. * Schedule echocardiogram to reassess left ventricular systolic function, degree of left ventricular hypertrophy, atrial size, PA pressure, etc. * Note normal TSH and continue thyroid replacement. * Given recent increase in lower extremity edema, an ultrasound was scheduled. * Continue warfarin anticoagulation for goal INR 2.5 (range 2.0-3.0). We will discuss switching from warfarin to an NOAC on an outpatient basis. * DVT prophylaxis being addressed by anticoagulation for previous pulmonary embolism and now atrial fibrillation. * If further diarrhea, check stool for C. difficile given recent antimicrobial therapy for UTI. Further recommendations will follow, Thank you. Consult Acknowledgment - Thank you for your consult request.
--- NOTE | 2017-01-12 21:42 | ULTRASOUND REPORT ---
EXAMINATION: US TRIPLEX LOWER EXTREMITY, RIGHT CLINICAL INFORMATION: Edema. Swelling. Inflammation. Skin change COMPARISON: None TECHNIQUE: Color-flow triplex imaging with spectral analysis and compression Doppler were performed on the lower extremity. FINDINGS: Respiratory variation, normal compression and augmented flow are noted throughout the left lower extremity. The visualized common femoral vein, superficial femoral vein, profunda femoral vein, popliteal vein and midcalf peroneal and posterior tibial venous segments show no evidence of deep venous thrombosis. There is no Victor's cyst. IMPRESSION: Normal triplex scan without evidence of deep venous thrombosis involving the lower extremity.
[2017-01-12 22:00] VITALS: BP 140/80
[2017-01-13 01:17] VITALS: BP 120/70
[2017-01-13] MEDS ORDERED: PHENYTOIN SODI100 MG PO (06:59)
[2017-01-13 08:00] VITALS: BP 110/60
[2017-01-13 08:27] LABS: PT 26.3 SEC (9.4-12.5)
[2017-01-13 08:48] LABS: ABSOLUTE BASOPHIL COUNT 0 /CUMM (0.0-0.2); ABSOLUTE EOSINOPHIL COUNT 0.1 /CUMM (0.0-0.7); ABSOLUTE GRANULOCYTE CT 2.7 /CUMM (1.4-6.5); ABSOLUTE LYMPH COUNT 0.8 /CUMM (1.2-3.4); ABSOLUTE MONOCYTE COUNT 0.7 /CUMM (0.10-0.60); BASOPHIL % 0.4 % (0.0-2.0); EOSINOPHIL % 2.6 % (0-5); GRANULOCYTE % 62.4 % (42.2-75.2); HEMATOCRIT 35.1 % (37-47); MEAN CORPUSCULAR HGB 29.8 PG (27.0-31.0); MEAN CORPUSCULAR HGB CONC 32.5 G/DL (33.0-37.0); MEAN CORPUSCULAR VOLUME 91.5 FL (81.0-99.0); MEAN PLATELET VOLUME 9.4 FL (7.4-10.4); PLATELET COUNT 151 /CUMM (130-400); RBC DISTRIBUTION WIDTH 15.5 % (11.5-14.5); RED BLOOD CELL CT 3.83 /CUMM (4.20-5.40); WHITE BLOOD CELL COUNT 4.4 /CUMM (4.8-10.8)
--- NOTE | 2017-01-13 09:46 | PN- Housestaff ---
JERI RAZO 01/13/17 0946: Subjective Follow-up For: Atrial fibrillation with rapid ventricular response Complaints: no complaints Tele-Events Since Last Visit: Atrial fibrillation, heart rate ranges from 82-101, no overnight events Subjective: Patient was seen and examined this morning. She was sitting comfortably on chair without any complaints. She denied chest pain, chest palpitations, chest pressure, abdominal pain, any bowel complaints at the moment. She had no diarrheal bowel movement overnight. Normal signs and remained afebrile with temperature 97.8, pulse 90, respiratory rate 20, blood pressure 110/60 and she is saturating 94% on room air. Review of Systems Constitutional: Denies: chills, diaphoresis, fever. Cardiovascular: Reports: edema. Denies: chest pain, orthopena. Respiratory: Denies: hemoptysis, orthopnea. Gastrointestinal: Denies: constipation, diarrhea. Genitourinary: Reports: dysuria. Denies: frequency. Objective Last 24 Hrs of Vital Signs/I&O Vital Signs Date Time Temp Pulse Resp B/P B/P Pulse O2 O2 Flow FiO2 Mean Ox Delivery Rate 01/13 0800 97.8 90 20 110/60 94 Room Air 01/13 0117 98.0 77 18 120/70 94 Room Air 01/12 2200 98.4 100 18 140/80 94 Room Air 01/12 2200 98.4 100 18 140/80 94 Room Air 01/12 1639 97.7 114 18 114/68 93 Room Air 01/12 1352 97.7 105 18 124/68 96 Room Air 01/12 1227 125 128/82 01/12 1225 125 18 128/82 96 Room Air 01/12 1130 150 116/83 01/12 1128 Room Air Room Air 01/12 1120 150 15 116/83 94 Room Air Room Air Intake & Output 01/13 1600 01/13 0800 01/13 0000 Intake Total 180 Output Total 400 500 Balance -220 -500 Intake, IV 80 Intake, Oral 100 Output, Urine 400 500 Physical Exam General Appearance: Alert, Oriented X3, Cooperative, No Acute Distress Neck: Supple, No JVD Cardiovascular: Normal S1, Normal S2, No Murmurs, IRREGULARLY IRREGULAR Lungs: Normal Air Movement Abdomen: Soft, No Tenderness Neurological: Normal Speech, Normal Tone Extremities: BILATERAL LOWER EXTREMITY EDEMA , RIGHT MORE THAN LEFT Current Medications: Current Medications Sig/Liudmila Start time Last Medication Dose Route Stop Time Status Admin Acetaminophen 650 MG Q6P PRN 01/13 2000 AC PO Acetaminophen 325 MG Q6P PRN 01/12 1415 AC PO Acetaminophen/ 1 TAB Q6P PRN 01/13 2000 AC 01/13 Hydrocodone Bitart PO 0658 Atorvastatin Calcium 10 MG 1700 01/12 1700 AC 01/12 PO 1621 Diltiazem HCl 0 .STK-MED ONE 01/12 1225 DC .ROUTE Diltiazem HCl 10 MG ONCE ONE 01/12 1215 DC 01/12 IV 01/12 1216 1227 Diltiazem HCl 125 MG Q12H 01/12 1215 AC 01/13 Dextrose/Water 100 ML IV 0110 Diltiazem HCl 10 MG ONCE ONE 01/12 1130 DC 01/12 IV PUSH 01/12 1131 1130 Furosemide 40 MG DAILY 01/13 1000 AC 01/13 PO 1101 Hydromorphone HCl 0.5 MG Q4P PRN 01/13 2000 AC IV Magnesium Oxide 400 MG ONE ONE 01/12 1845 DC 01/12 PO 01/12 1846 1943 Nystatin 1 ANUPAM TID 01/12 1854 AC 01/13 TOP 1101 Patient Medication 1 UNIT ONE NR 01/12 1845 DC Teaching ED 01/12 1900 Phenytoin 200 MG SuTuSa 01/13 1415 CAN PO Phenytoin 200 MG QPM 01/12 2200 CAN PO Phenytoin 200 MG BID 01/12 2200 AC 01/13 PO 1101 Phenytoin 100 MG ONCE ONE 01/12 1900 DC 01/12 PO 01/12 1901 1943 Phenytoin 100 MG MoThFr 01/12 1415 DC PO Thyroid 4 GR DAILY AC 01/12 1645 AC 01/13 PO 0644 Warfarin Sodium 2.5 MG COUMADIN 1700 ONE 01/13 1700 UNVr PO 01/13 1701 Warfarin Sodium 2.5 MG COUMADIN 1700 ONE 01/12 1700 DC 01/12 PO 01/12 1701 1800 Last 24 Hrs of Lab/Kurt Results Last 24 Hrs of Labs/Mics: Laboratory Tests 01/13/17 0710: Anion Gap 7, Estimated GFR > 60, BUN/Creatinine Ratio 25.0, Magnesium Pending, PT 26.3 H, INR 2.53 H, CBC w Diff NO MAN DIFF REQ, RBC 3.83 L, MCV 91.5, MCH 29.8, RDW 15.5 H, MPV 9.4, Gran % 62.4, Lymphocytes % 18.1 L, Monocytes % 16.5 H, Eosinophils % 2.6, Basophils % 0.4, Absolute Granulocytes 2.7, Absolute Lymphocytes 0.8 L, Absolute Monocytes 0.7 H, Absolute Eosinophils 0.1, Absolute Basophils 0, PUBS MCHC 32.5 L 01/12/17 2300: Troponin I < 0.01 01/12/17 1815: Troponin I < 0.01 Assessment/Plan Assessment: Patient is 87-year-old female with past medical history significant for hypothyroidism, hyperlipidemia, paroxysmal atrial fibrillation, seizure disorder, history of pulmonary embolism on Coumadin and was sent in to ER and found to have atrial fibrillation at her PCPs office. In ER she was found to be in A. fib with rapid ventricular response and was started on Cardizem drip. Patient is in telemetry floor and we will take care for the following problems Problem #1 atrial fibrillation with rapid ventricle response on Cardizem drip She was started on Cardizem drip and was seen by cardiology Dr. Garland Currently patient is running at 10 mg per hour and will try to titrate it down to 7.5. And after achieving goal heart rate we will switch it to oral Cardizem. Problem #2 lower extremity edema Lower extremity Doppler was done to rule out DVT which came back negative. 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 She is at goal INR and we will dose her Coumadin for today and will recheck INR daily Problem #4 history of hypothyroidism We will continue her home dose of [place] thyroid History of hyperlipidemia Will continue statins with a low dose as there is interaction with diltiazem that can cause increased level of simvastatin which can lead to liver damage Problem #5 History of seizure disorder on Dilantin but as phenytoin ER 200 mg twice a day which she was taking at home is not available here we will give direct release tablets here and we would continue her home medications on discharge She is full code Pharmacological DVT prophylaxis Will continue her home dose Problem List: 1. Atrial fibrillation with RVR Pain Ratin Pain Location: NA Pain Goal: Remain pain free Pain Plan: TYLENOL Tomorrow's Labs & Rationales: CBC,BEP AND LETA ALARCON MD 01/13/171941: Attending MD Review Statement Attending Statement Attending MD Statement: examined this patient, discuss w/resident/PA/RAIL SIGNAL DESIGNER, agreed w/resident/PA/RAIL SIGNAL DESIGNER, reviewed EMR data (avail), discussed with nursing, amended to note Attending Assessment/Plan: The patient was seen and discussed with house staff. Agree with the plan of care as outlined. Cardiology input appreciated.
--- NOTE | 2017-01-13 13:37 | PN- Cardiology ---
Subjective Subjective: The patient is feeling better than yesterday. She is still a little short of breath. She states her swelling has improved. She has no chest pain. She remains in atrial fibrillation. Her heart rate is varying from the 90s to low 100s. Her echocardiogram will be done tomorrow. She remains on warfarin, Lasix , atorvastatin, and diltiazem drip at 10 mg per hour. Objective Vital Signs and I&Os Vital Signs Date Time Temp Pulse Resp B/P B/P Pulse O2 O2 Flow FiO2 Mean Ox Delivery Rate 01/13 0800 97.8 90 20 110/60 94 Room Air 01/13 0117 98.0 77 18 120/70 94 Room Air 01/12 2200 98.4 100 18 140/80 94 Room Air 01/12 2200 98.4 100 18 140/80 94 Room Air 01/12 1639 97.7 114 18 114/68 93 Room Air 01/12 1352 97.7 105 18 124/68 96 Room Air Intake & Output 01/13 1600 01/13 0800 01/13 0000 01/12 1600 01/12 0800 01/12 0000 Intake Total 180 0 Output Total 400 500 Balance -220 -500 0 Intake, IV 80 Intake, Oral 100 0 Output, Urine 400 500 Patient 180 lb Weight Weight Estimated Measurement Method Physical Exam: She is in no distress HEENT exam is normal Chest is clear Heart reveals irregular rhythm at a moderate rate with no murmurs Extremities reveal chronic edema bilaterally Current Medications: Current Medications Sig/Liudmila Start time Last Medication Dose Route Stop Time Status Admin Acetaminophen 650 MG Q6P PRN 01/13 2000 AC PO Acetaminophen 325 MG Q6P PRN 01/12 1415 AC PO Acetaminophen/ 1 TAB Q6P PRN 01/13 2000 AC 01/13 Hydrocodone Bitart PO 0658 Atorvastatin Calcium 10 MG 1700 01/12 1700 AC 01/12 PO 1621 Diltiazem HCl 125 MG Q12H 01/12 1215 AC 01/13 Dextrose/Water 100 ML IV 0110 Furosemide 40 MG DAILY 01/13 1000 AC 01/13 PO 1101 Hydromorphone HCl 0.5 MG Q4P PRN 01/13 2000 AC IV Magnesium Oxide 400 MG ONE ONE 01/12 1845 DC 01/12 PO 01/12 1846 1943 Nystatin 1 ANUPAM TID 01/12 1854 AC 05/13 TOP 1101 Patient Medication 1 UNIT ONE NR 01/13 1130 AL Teaching ED 01/13 1200 Patient Medication 1 UNIT ONE NR 01/12 1845 AL Teaching ED 01/12 1900 Phenytoin 200 MG SuTuSa 01/13 1415 CAN PO Phenytoin 200 MG QPM 01/12 2200 CAN PO Phenytoin 200 MG BID 01/12 2200 AC 01/13 PO 1101 Phenytoin 100 MG ONCE ONE 01/12 1900 DC 01/12 PO 01/12 1901 1943 Phenytoin 100 MG MoThFr 01/12 1415 DC PO Thyroid 4 GR DAILY AC 01/12 1645 AC 01/13 PO 0644 Warfarin Sodium 2.5 MG COUMADIN 1700 ONE 01/13 1700 AC PO 01/13 1701 Warfarin Sodium 2.5 MG COUMADIN 1700 ONE 01/12 1700 DC 01/12 PO 01/12 1701 1800 Results Last 48 Hrs of Labs/Mics: Laboratory Tests 01/13/17 0710: Anion Gap 7, Estimated GFR > 60, BUN/Creatinine Ratio 25.0, Magnesium 1.9, PT 26.3 H, INR 2.53 H, CBC w Diff NO MAN DIFF REQ, RBC 3.83 L, MCV 91.5, MCH 29.8, RDW 15.5 H, MPV 9.4, Gran % 62.4, Lymphocytes % 18.1 L, Monocytes % 16.5 H, Eosinophils % 2.6, Basophils % 0.4, Absolute Granulocytes 2.7, Absolute Lymphocytes 0.8 L, Absolute Monocytes 0.7 H, Absolute Eosinophils 0.1, Absolute Basophils 0, PUBS MCHC 32.5 L 01/12/17 2300: Troponin I < 0.01 01/12/17 1815: Troponin I < 0.01 01/12/17 1105: Anion Gap 6, Estimated GFR > 60, BUN/Creatinine Ratio 18.3, Glucose 86, Calcium 9.0, Magnesium 1.8, Total Bilirubin 0.7, AST 31, ALT 39, Alkaline Phosphatase 164 H, Troponin I < 0.01, Total Protein 6.9, Albumin 3.5, Globulin 3.4, Albumin /Globulin Ratio 1.0 L, TSH 0.995, Free T4 1.17, PT 26.3 H, INR 2.53 H, APTT 39 H, CBC w Diff NO MAN DIFF REQ, RBC 4.37, MCV 90.6, MCH 29.3, RDW 15.2 H, MPV 9.1, Gran % 66.6, Lymphocytes % 17.3 L, Monocytes % 13.6 H, Eosinophils % 2.1, Basophils % 0.4, Absolute Granulocytes 3.2, Absolute Lymphocytes 0.8 L, Absolute Monocytes 0.6, Absolute Eosinophils 0.1, Absolute Basophils 0, PUBS MCHC 32.4 L, Phenytoin 8.0 L Assessment/Plan Assessment/Plan The patient is an 87-year-old female with "new onset" atrial fibrillation. Her rate is improved on IV Cardizem. She does not appear to be in gross congestive heart failure at this time. Her echocardiogram is pending. I recommend starting her on oral Cardizem 60 mg every 8 hours. We can then taper her off her IV Cardizem and adjust the oral Cardizem to keep the heart rate below 100 at rest. Small doses of beta blockers can be added for better effect if necessary. Continue telemetry? Yes
[2017-01-13 16:22] VITALS: BP 116/72
[2017-01-13 23:00] VITALS: BP 122/64
[2017-01-14 07:54] LABS: ABSOLUTE BASOPHIL COUNT 0 /CUMM (0.0-0.2); ABSOLUTE EOSINOPHIL COUNT 0.2 /CUMM (0.0-0.7); ABSOLUTE GRANULOCYTE CT 2.5 /CUMM (1.4-6.5); ABSOLUTE LYMPH COUNT 0.7 /CUMM (1.2-3.4); ABSOLUTE MONOCYTE COUNT 0.7 /CUMM (0.10-0.60); BASOPHIL % 0.3 % (0.0-2.0); GRANULOCYTE % 60.2 % (42.2-75.2); HEMATOCRIT 34.7 % (37-47); MEAN CORPUSCULAR HGB 29.6 PG (27.0-31.0); MEAN CORPUSCULAR HGB CONC 32.7 G/DL (33.0-37.0); MEAN CORPUSCULAR VOLUME 90.5 FL (81.0-99.0); MEAN PLATELET VOLUME 9.4 FL (7.4-10.4); PLATELET COUNT 150 /CUMM (130-400); RBC DISTRIBUTION WIDTH 15.1 % (11.5-14.5); RED BLOOD CELL CT 3.83 /CUMM (4.20-5.40); WHITE BLOOD CELL COUNT 4.1 /CUMM (4.8-10.8)
[2017-01-14 08:04] VITALS: BP 106/60
[2017-01-14 08:17] LABS: PT 30.2 SEC (9.4-12.5)
--- NOTE | 2017-01-14 09:49 | PN- Housestaff ---
FELICITA BENNETT 01/14/17 0935: Subjective Follow-up For: Atrial fibrillation with rapid ventricular response Subjective: This morning patient is feeling improved. She denies any chest pain, palpitations, dizziness or lightheadedness. She slept good last night. Heart rate is seen 100. She is on Cardizem drip right now at rate of 2.5. Review of Systems Constitutional: Reports: see HPI. Objective Last 24 Hrs of Vital Signs/I&O Vital Signs Date Time Temp Pulse Resp B/P B/P Pulse O2 O2 Flow FiO2 Mean Ox Delivery Rate 01/14 0804 97.9 87 18 106/60 94 Room Air 01/14 0611 94 112/62 01/13 2300 98.2 98 18 122/64 95 Room Air 01/13 2204 97 122/64 01/13 1637 118/82 01/13 1622 97.3 109 22 116/72 96 Intake & Output 01/14 1600 01/14 0800 01/14 0000 Intake Total 120 290 Output Total 350 750 Balance -230 -460 Intake, IV 20 40 Intake, Oral 100 250 Number 0 Bowel Movements Output, Urine 350 750 Physical Exam General Appearance: Alert, Oriented X3, Cooperative, No Acute Distress Cardiovascular: irregularly irregular Lungs: Clear to Auscultation Abdomen: Normal Bowel Sounds, Soft, No Tenderness Neurological: Normal Speech, Strength at 5/5 X4 Ext, Sensation Intact, Cranial Nerves 3-12 NL Extremities: right leg is slightly bigger than left. Chronic venous stasis changes bilaterally. 1+ pitting edema right lower extremity. Trace edema left side Current Medications: Current Medications Sig/Liudmila Start time Last Medication Dose Route Stop Time Status Admin Acetaminophen 650 MG Q6P PRN 01/13 2000 AC PO Acetaminophen 325 MG Q6P PRN 01/12 1415 AC PO Acetaminophen/ 1 TAB Q6P PRN 01/13 2000 AC 01/13 Hydrocodone Bitart PO 1944 Atorvastatin Calcium 10 MG 1700 01/12 1700 AC 01/13 PO 1637 Diltiazem HCl 125 MG Q24H 01/13 1830 AC Dextrose/Water 100 ML IV Diltiazem HCl 60 MG Q8 01/13 1400 AC 01/14 PO 0611 Diltiazem HCl 125 MG Q12H 01/12 1215 DC 01/13 Dextrose/Water 100 ML IV 1644 Furosemide 40 MG DAILY 01/13 1000 AC 01/14 PO 0901 Hydromorphone HCl 0.5 MG Q4P PRN 01/12 2000 AC IV Nystatin 1 ANUPAM TID 01/12 1854 AC 01/14 TOP 0901 Patient Medication 1 UNIT ONE NR 01/13 1130 DC Teaching ED 01/13 1200 Phenytoin 200 MG BID 01/12 2200 AC 01/14 PO 0901 Thyroid 4 GR DAILY AC 01/12 1645 AC 01/14 PO 0611 Warfarin Sodium 2.5 MG COUMADIN 1700 ONE 01/13 1700 DC 01/13 PO 01/13 1701 1637 Last 24 Hrs of Lab/Kurt Results Last 24 Hrs of Labs/Mics: Laboratory Tests 01/14/17 0645: Anion Gap 8, Estimated GFR > 60, BUN/Creatinine Ratio 18.6, Magnesium 1.8, Triglycerides 41, Cholesterol 81, LDL Cholesterol, Calc 25 L, HDL Cholesterol 48, Cholesterol/HDL Ratio 2, PT 30.2 H, INR 2.91 H, CBC w Diff NO MAN DIFF REQ , RBC 3.83 L, MCV 90.5, MCH 29.6, RDW 15.1 H, MPV 9.4, Gran % 60.2, Lymphocytes % 17.6 L, Monocytes % 17.9 H, Eosinophils % 4.0, Basophils % 0.3, Absolute Granulocytes 2.5, Absolute Lymphocytes 0.7 L, Absolute Monocytes 0.7 H, Absolute Eosinophils 0.2, Absolute Basophils 0, PUBS MCHC 32.7 L Lines/Diet/Fluids Fluids/Infusions: Cardizem drip Assessment/Plan Assessment: Patient is 87-year-old female with past medical history significant for hypothyroidism, hyperlipidemia, paroxysmal atrial fibrillation, seizure disorder, history of pulmonary embolism on Coumadin has been admitted on telemetry floor for: 1. Atrial fibrillation with rapid ventricle response on Cardizem drip 2.5 with per hour. Heart rate is in the range of 90-110. Started on by mouth Cardizem yesterday. 2. B/L lower extremity edema R>L. No DVT 3. History of PE on warfarin. Goal INR between 2-3. INR today 2.91. 4. History of hypothyroidism. on Synthroid 5. History of seizure disorder. On Dilantin PLAN * Monitor vitals closely. Heart rate in the range of 90-110 * On by mouth Cardizem 60 mg every 8 hours * Will DC Cardizem drip and adjust Cardizem dose accordingly. Monitor heart rate closely. Goal heart rate below 100 * We will keep potassium more than 4 and magnesium at 2. Electrolytes were repleted today * We will order 1 mg of Coumadin today. Will check INR in a.m. * Follow further cardiac recommendations * Continue other home medications She is full code Pharmacological DVT prophylaxis Problem List: 1. Atrial fibrillation Pain Ratin Pain Location: NONE Pain Goal: Remain pain free Pain Plan: tylenol Tomorrow's Labs & Rationales: BEP, MG, INR DVT/Prophylaxis: pharmacological LETA GAMBINO MD 01/14/17 1514: Attending MD Review Statement Attending Statement Attending MD Statement: examined this patient, discuss w/resident/PA/MIDDLE SCHOOL BAND TEACHER, agreed w/resident/PA/MIDDLE SCHOOL BAND TEACHER, reviewed EMR data (avail), discussed with nursing, amended to note Attending Assessment/Plan: The patient was seen and discussed with house staff. Appreciate Cardiology follow-up. Will add Metoprolol bid to regimen to slow HR (still running in 100's ). Patient remains asymptomatic. Continue other meds and Coumadin.
--- NOTE | 2017-01-14 12:01 | PN- Cardiology ---
Subjective Subjective: The patient has no complaints today. She is feeling better. She remains in atrial fibrillation with heart rates in the low 100s. She is now off IV Cardizem and has been started on by mouth Cardizem. Objective Vital Signs and I&Os Vital Signs Date Time Temp Pulse Resp B/P B/P Pulse O2 O2 Flow FiO2 Mean Ox Delivery Rate 01/14 0804 97.9 87 18 106/60 94 Room Air 01/14 0611 94 112/62 01/13 2300 98.2 98 18 122/64 95 Room Air 01/13 2204 97 122/64 01/13 1637 118/82 01/13 1622 97.3 109 22 116/72 96 Intake & Output 01/14 1600 01/14 0800 01/14 0000 01/13 1600 01/13 0800 01/13 0000 Intake Total 120 290 680 180 Output Total 350 750 700 400 500 Balance -230 -460 -20 -220 -500 Intake, IV 20 40 80 80 Intake, Oral 100 250 600 100 Number 0 1 Bowel Movements Output, Urine 350 750 700 400 500 Physical Exam: She is in no distress, sitting in a chair HEENT exam is normal Chest is clear Heart reveals irregular rhythm with a moderate rate and no murmurs Current Medications: Current Medications Sig/Liudmila Start time Last Medication Dose Route Stop Time Status Admin Acetaminophen 650 MG Q6P PRN 01/13 2000 AC PO Acetaminophen 325 MG Q6P PRN 01/12 1415 AC PO Acetaminophen/ 1 TAB Q6P PRN 01/13 2000 AC 01/13 Hydrocodone Bitart PO 1944 Atorvastatin Calcium 10 MG 1700 01/12 1700 AC 01/13 PO 1637 Diltiazem HCl 125 MG Q24H 01/13 1830 DC Dextrose/Water 100 ML IV Diltiazem HCl 60 MG Q8 01/13 1400 AC 01/14 PO 0611 Diltiazem HCl 125 MG Q12H 01/12 1215 DC 01/13 Dextrose/Water 100 ML IV 1644 Furosemide 40 MG DAILY 01/13 1000 AC 01/14 PO 0901 Hydromorphone HCl 0.5 MG Q4P PRN 01/13 2000 AC IV Magnesium Oxide 400 MG ONE ONE 01/14 1100 DC PO 01/14 1101 Nystatin 1 ANUPAM TID 01/12 1854 AC 01/14 TOP 0901 Patient Medication 1 UNIT ONE NR 05/13 1130 DC Teaching ED 01/13 1200 Phenytoin 200 MG BID 01/12 2200 AC 01/14 PO 0901 Potassium Chloride 40 MEQ ONCE ONE 01/14 1100 DC PO 01/14 1101 Thyroid 4 GR DAILY AC 01/12 1645 AC 01/14 PO 0611 Warfarin Sodium 1 MG 1700 01/14 1700 AC PO 01/14 1701 Warfarin Sodium 2.5 MG COUMADIN 1700 ONE 01/13 1700 DC 01/13 PO 01/13 1701 1637 Results Last 48 Hrs of Labs/Mics: Laboratory Tests 01/14/17 0645: Anion Gap 8, Estimated GFR > 60, BUN/Creatinine Ratio 18.6, Magnesium 1.8, Triglycerides 41, Cholesterol 81, LDL Cholesterol, Calc 25 L, HDL Cholesterol 48, Cholesterol/HDL Ratio 2, PT 30.2 H, INR 2.91 H, CBC w Diff NO MAN DIFF REQ , RBC 3.83 L, MCV 90.5, MCH 29.6, RDW 15.1 H, MPV 9.4, Gran % 60.2, Lymphocytes % 17.6 L, Monocytes % 17.9 H, Eosinophils % 4.0, Basophils % 0.3, Absolute Granulocytes 2.5, Absolute Lymphocytes 0.7 L, Absolute Monocytes 0.7 H, Absolute Eosinophils 0.2, Absolute Basophils 0, PUBS MCHC 32.7 L 01/13/17 0710: Anion Gap 7, Estimated GFR > 60, BUN/Creatinine Ratio 25.0, Magnesium 1.9, PT 26.3 H, INR 2.53 H, CBC w Diff NO MAN DIFF REQ, RBC 3.83 L, MCV 91.5, MCH 29.8, RDW 15.5 H, MPV 9.4, Gran % 62.4, Lymphocytes % 18.1 L, Monocytes % 16.5 H, Eosinophils % 2.6, Basophils % 0.4, Absolute Granulocytes 2.7, Absolute Lymphocytes 0.8 L, Absolute Monocytes 0.7 H, Absolute Eosinophils 0.1, Absolute Basophils 0, PUBS MCHC 32.5 L 01/12/17 2300: Troponin I < 0.01 01/12/17 1815: Troponin I < 0.01 Assessment/Plan Assessment/Plan The patient is now on oral Cardizem. Her heart rate is in the low 100s and she remains in atrial fibrillation. She remains on warfarin for anticoagulation. Her blood pressure is normal. Her troponins were negative. Her chemistries are unremarkable. I suggest adding of Lopressor 25 mg twice a day to help with the heart rate control. Continue telemetry? Yes
[2017-01-14 17:55] VITALS: BP 130/72
[2017-01-14 23:00] VITALS: BP 116/60
--- NOTE | 2017-01-15 07:14 | PN- Housestaff ---
See Addendum Subjective Follow-up For: Atrial fibrillation with rapid ventricular response Tele-Events Since Last Visit: A. fib, heart rate 70s to 90s, average heart rate 88 with one episode of bradycardia down to 30s for less than 2 sec. Subjective: Hemodynamically stable, denies any current complaints. One episode of bradycardia down to 30s for less than 2 seconds overnight. Patient denies palpitation, chest pain, or shortness breath. She is saturating well on room air. Review of Systems Constitutional: Reports: no symptoms. Objective Last 24 Hrs of Vital Signs/I&O Vital Signs Date Time Temp Pulse Resp B/P B/P Pulse O2 O2 Flow FiO2 Mean Ox Delivery Rate 01/15 1122 92/62 01/15 0750 97.8 72 20 92/62 95 01/15 0618 94 108/62 01/14 2300 97.6 84 18 116/60 95 Room Air 01/14 2211 84 116/60 01/14 2210 84 116/60 01/14 1755 97.6 83 20 130/72 99 Nasal Cannula 01/14 1505 130/72 Intake & Output 01/15 1600 01/15 0800 01/15 0000 Intake Total 100 450 Output Total 875 Balance 100 -425 Intake, IV 0 0 Intake, Oral 100 450 Number 0 Bowel Movements Output, Urine 875 Physical Exam General Appearance: Alert, Oriented X3, Cooperative, No Acute Distress HEENT: Atraumatic, PERRLA, EOMI, Mucous Membr. moist/pink Cardiovascular: Normal S1, Normal S2, No Murmurs, irregular heart rate Lungs: Clear to Auscultation, Normal Air Movement Abdomen: Normal Bowel Sounds, Soft, No Tenderness Neurological: Normal Speech Extremities: No Clubbing, No Cyanosis, +1 LE edema. chronic venous stasis Current Medications: Current Medications Sig/Liudmila Start time Last Medication Dose Route Stop Time Status Admin Acetaminophen 650 MG Q6P PRN 01/13 2000 AC PO Acetaminophen 325 MG Q6P PRN 01/12 1415 AC PO Acetaminophen/ 1 TAB Q6P PRN 01/13 2000 AC 01/13 Hydrocodone Bitart PO 194 Atorvastatin Calcium 10 MG 1700 01/12 1700 AC 14 PO 1608 Diltiazem HCl 60 MG Q8 01/13 1400 AC 01/15 PO 0618 Furosemide 40 MG DAILY 01/13 1000 AC 01/15 PO 0933 Hydromorphone HCl 0.5 MG Q4P PRN 01/13 2000 AC IV Magnesium Oxide 400 MG ONE ONE 01/15 1230 UNVr PO 01/15 1231 Metoprolol Tartrate 25 MG BID 01/14 2200 AC 01/14 PO 2211 Metoprolol Tartrate 50 MG BID 01/14 1259 DC 01/14 PO 1505 Nystatin 1 ANUPAM TID 01/12 1854 AC 01/15 TOP 0932 Patient Medication 1 UNIT ONE NR 01/14 1315 DC Teaching ED 01/14 1330 Phenytoin 200 MG BID 01/12 2200 AC 01/15 PO 0933 Thyroid 4 GR DAILY AC 01/12 1645 AC 01/15 PO 0618 Warfarin Sodium 1 MG 1700 01/14 1700 DC 01/14 PO 01/14 1701 1608 Last 24 Hrs of Lab/Kurt Results Last 24 Hrs of Labs/Mics: Laboratory Tests 01/15/17 0648: Anion Gap 9, Estimated GFR > 60, BUN/Creatinine Ratio 20.0, Magnesium 1.9, PT 31.1 H, INR 2.99 H Assessment/Plan Assessment: 87/F with PMH of hypothyroidism, hyperlipidemia, paroxysmal atrial fibrillation, seizure disorder, history of pulmonary embolism on Coumadin and was sent in to ER and found to have atrial fibrillation at her PCPs office. She was found to have A. fib with rapid ventricular response at the ED and she was was started on Cardizem drip. #1 Atrial fibrillation with rapid ventricular response She was initially started on Cardizem drip, after the heartrate was controlled, she was switched to oral Cardizem 60 mg every 8 hours. metoprolol 25 mg twice a day was added yesterday. Since yesterday patient has an average heart rate of 88 with one episode of bradycardia(less than 2 seconds). * switch Cardizem 60 mg every 8 oral to every 6 hours as per cardiology * Continue metoprolol 25 mg twice a day oral * We will follow cardiology recommendations #2 lower extremity edema DVT was ruled out by negative Lower extremity Doppler. * Given the low BP we will hold lasix 40 mg today. will be restarted if BP is more stable tomorrow * NTD #3 history of learning embolism on warfarin INR is in the therapeutic range(2-3). Today's INR is 2.99. * We will does 1 mg of warfarin not the 2.5 regular dose * We'll recheck INR daily #4 history of hypothyroidism * We will continue her home dose of thyroid tab #5 hyperlipidemia * Continue low-dose statin #6 History of seizure disorder * Continue phenytoin Regular diet Pharmacological DVT prophylaxis Full code Problem List: 1. Atrial fibrillation with RVR Pain Ratin Pain Location: NA Pain Goal: Remain pain free Pain Plan: See A&P Tomorrow's Labs & Rationales: CBC to follow the contious drop of WBCs
[2017-01-15 07:50] VITALS: BP 92/62
[2017-01-15 08:19] LABS: PT 31.1 SEC (9.4-12.5)
--- NOTE | 2017-01-15 11:27 | ECHOCARDIOGRAM REPORT ---
GABBY BASS Age: 87 : 1930 Gender: F Exam Date: 01/14/2017 13:24 Exam Location: [address] [facility] Ht (in): 66 Wt (lb): 180 BSA: 1.97 BP: 112 / 62 Ordering Physician: RAEANN TORRES MD Referring Physician: Bienvenido Garland MD Technologist: Fidelina Bradford [facility] Room Number: 178 Indications: AFIB/FLUTTER Rhythm: Atrial fibrillation Technical Quality: Fair FINDINGS Left Ventricle Normal size left ventricle. Mild concentric left ventricular hypertrophy. No obvious regional wall motion abnormalities. Normal left ventricular ejection fraction visually estimated at >60%. Right Ventricle Normal right ventricular size and function. Right Atrium Mild to moderate right atrial dilatation. Left Atrium Mild to moderate left atrial dilatation. Mitral Valve Mitral valve thickened. Mild mitral regurgitation. Aortic Valve Trileaflet aortic valve. Mild aortic sclerosis. No aortic stenosis. Mild aortic regurgitation. Tricuspid Valve Structurally normal tricuspid valve. Moderate tricuspid regurgitation. Right ventricular systolic pressure estimated at 36 mmHg. Pulmonic Valve Pulmonic valve not well visualized, grossly normal. No pulmonic regurgitation. Pericardium Small pericardial effusion. No echocardiographic findings to suggest a hemodynamically significant pericardial effusion. Great Vessels Normal size aortic root. Dilated inferior vena cava. CONCLUSIONS Normal size left ventricle. Mild concentric left ventricular hypertrophy. No obvious regional wall motion abnormalities. Normal left ventricular ejection fraction visually estimated at > 60%. Normal right ventricular size and function. Mild to moderate atrial dilatation. Mild mitral regurgitation. Mild aortic regurgitation. Moderate tricuspid regurgitation. Right ventricular systolic pressure estimated at 36 mmHg. Small pericardial effusion. Dilated inferior vena cava. Bienvenido Garland M.D. (Electronically Signed) Final Date: 15 Jan 2017 11:27 MEASUREMENTS (Male / Female) Normal Values 2D ECHO LV Diastolic Diameter PLAX 3.1 cm 4.2 - 5.9 / 3.9 - 5.3 cm LV Systolic Diameter PLAX 2.1 cm 2.1 - 4.0 cm LV Fractional Shortening PLAX 32.3 % 25 - 46 % LV Ejection Fraction 2D Teich 62.0 % IVS Diastolic Thickness 1.2 cm LVPW Diastolic Thickness 1.2 cm LV Relative Wall Thickness 0.8 RV Internal Dim ED PLAX 2.7 cm 1.9 - 3.8 cm LVOT Diameter 1.9 cm Aortic Root Diameter 3.0 cm LA Systolic Diameter LX 4.2 cm 3.0 - 4.0 / 2.7 - 3.8 cm LA Volume 49.0 cm 18 - 58 / 22 - 52 cm Ascending Aorta Diameter 3.2 cm DOPPLER AV Peak Velocity 153.0 cm/s AV Peak Gradient 9.4 mmHg AV Mean Velocity 107.0 cm/s AV Mean Gradient 5.0 mmHg AV Velocity Time Integral 24.5 cm LVOT Peak Velocity 117.0 cm/s LVOT Peak Gradient 5.5 mmHg LVOT Mean Velocity 74.5 cm/s LVOT Mean Gradient 3.0 mmHg LVOT Velocity Time Integral 17.1 cm LVOT Stroke Volume 48.5 cm AV Area Cont Eq vti 2.0 cm AV Area Cont Eq pk 2.2 cm MV Peak Velocity 119.0 cm/s MV Peak Gradient 5.7 mmHg MV Mean Velocity 61.7 cm/s MV Mean Gradient 2.0 mmHg Mitral E Point Velocity 99.2 cm/s MV PHT Velocity 125.0 cm/s MV Deceleration [place] 580.0 cm/s MV Pressure Half Time 64.7 ms MV Area PHT 3.4 cm MV Deceleration Time 204.0 ms TR Peak Velocity 276.0 cm/s TR Peak Gradient 30.5 mmHg Right Atrial Pressure 5.0 mmHg Pulmonary Artery Systolic Pressu 35.5 mmHg Right Ventricular Systolic Press 35.5 mmHg PV Peak Velocity 79.3 cm/s PV Peak Gradient 2.5 mmHg PV Mean Velocity 49.6 cm/s PV Mean Gradient 1.5 mmHg PV Velocity Time Integral 7.6 cm LV E' Lateral Velocity 14.1 cm/s Mitral E to LV E' Lateral Ratio 7.0 LV E' Septal Velocity 11.7 cm/s Mitral E to LV E' Septal Ratio 8.5
[2017-01-15 16:56] VITALS: BP 102/60
--- NOTE | 2017-01-15 19:10 | PN- Cardiology ---
Subjective Subjective: No specific complaints.denies chest discomfort, palpitations, shortness of breath, etc. Remains in atrial fibrillation with a variable rate ventricular response. Presumably while sleeping, had a ventricular response down to [address] to the ladies room the ventricular response is reportedly in the 130-140 bpm range. Objective Vital Signs and I&Os Vital Signs Date Time Temp Pulse Resp B/P B/P Pulse O2 O2 Flow FiO2 Mean Ox Delivery Rate 01/15 1656 97.5 93 20 102/60 95 Room Air 01/15 1502 116 110/60 01/15 1122 92/62 01/15 0750 97.8 72 20 92/62 95 01/15 0618 94 108/62 01/14 2300 97.6 84 18 116/60 95 Room Air 01/14 2211 84 116/60 01/14 2210 84 116/60 Intake & Output 01/15 1600 01/15 0800 01/15 0000 01/14 1600 01/14 0800 01/14 0000 Intake Total 400 100 450 410 120 290 Output Total 736 366 8772 350 750 Balance -350 100 -425 -590 -230 -460 Intake, IV 0 0 10 20 40 Intake, Oral 400 100 450 400 100 250 Number 1 0 1 0 Bowel Movements Output, Urine 472 730 9760 350 750 Physical Exam: Well-developed, overweight elderly female in no acute distress with nasal oxygen in place. Vital signs: See above. HEENT: Normocephalic, atraumatic, EOMI, slightly dry mucous membranes. Neck: No JVD, no bruits. Lungs: Decreased breath sounds bilaterally with mild bilateral expiratory wheezing. Heart: S1, S2 with grade 1-2/6 systolic murmur best heard near the base. PMI fifth ICS at MCL. No gallop or rub ratio. Abdomen: Soft, nontender, positive bowel sounds. Extremities: Improved bilateral lower extremity erythema and edema. Assessment/Plan Assessment/Plan 87-year-old female with a long-standing history of tobacco use, COPD, hypothyroidism, HLD, seizure disorder, possible TIA, multiple pulmonary emboli for which she was placed on warfarin anticoagulation April 2014, and brief bouts of PAF vs SVT in September 2011 w/o long-term anticoagulation given fall risk who presented from her PCPs office after she was found to be in atrial fibrillation with a rapid ventricular response and worsening right lower extremity edema. She has improved dramatically following a good diuresis, although the ventricular response to her atrial fibrillation need some fine-tuning. Would recommend increasing her Diltiazem from 60 mg 3 times daily to 60 mg 4 times daily. This can be switched over to the long-acting form of Diltiazem once we achieve adequate rate control. Continue telemetry? Yes
[2017-01-15 23:30] VITALS: BP 108/64
[2017-01-16 08:05] LABS: ABSOLUTE BASOPHIL COUNT 0 /CUMM (0.0-0.2); ABSOLUTE EOSINOPHIL COUNT 0.1 /CUMM (0.0-0.7); ABSOLUTE GRANULOCYTE CT 2.5 /CUMM (1.4-6.5); ABSOLUTE LYMPH COUNT 0.9 /CUMM (1.2-3.4); ABSOLUTE MONOCYTE COUNT 0.8 /CUMM (0.10-0.60); BASOPHIL % 0.5 % (0.0-2.0); EOSINOPHIL % 3.1 % (0-5); GRANULOCYTE % 58.1 % (42.2-75.2); HEMATOCRIT 34.6 % (37-47); MEAN CORPUSCULAR HGB 29.9 PG (27.0-31.0); MEAN CORPUSCULAR HGB CONC 33.2 G/DL (33.0-37.0); MEAN CORPUSCULAR VOLUME 90.2 FL (81.0-99.0); MEAN PLATELET VOLUME 9.2 FL (7.4-10.4); PLATELET COUNT 161 /CUMM (130-400); RBC DISTRIBUTION WIDTH 15.1 % (11.5-14.5); RED BLOOD CELL CT 3.84 /CUMM (4.20-5.40); WHITE BLOOD CELL COUNT 4.3 /CUMM (4.8-10.8)
[2017-01-16 08:15] VITALS: BP 90/56
[2017-01-16 08:19] LABS: PT 28.1 SEC (9.4-12.5)
--- NOTE | 2017-01-16 10:42 | PN- Housestaff ---
See Addendum Subjective Follow-up For: Atrial fibrillation with rapid ventricular response Tele-Events Since Last Visit: Atrial fibrillation, heartrate 95 to 119. No overnight event Subjective: Patient had low blood pressure this morning. She is saturating well on room air. No acute overnight events reported. She denies chest pain, palpitation, or shortness breath. Review of Systems Constitutional: Reports: no symptoms. Objective Last 24 Hrs of Vital Signs/I&O Vital Signs Date Time Temp Pulse Resp B/P B/P Pulse O2 O2 Flow FiO2 Mean Ox Delivery Rate 01/16 1011 108 96/50 01/16 0815 98.6 80 20 90/56 92 Room Air 01/16 0640 81 114/68 01/16 0000 Room Air 01/15 2330 98.1 84 22 108/64 98 Room Air 01/15 1913 106/60 01/15 1656 97.5 93 20 102/60 95 Room Air 01/15 1502 116 110/60 01/15 1122 92/62 Intake & Output 01/16 1600 01/16 0800 01/16 0000 Intake Total 480 120 Output Total 600 500 Balance -120 -380 Intake, Oral 480 120 Number 1 Bowel Movements Output, Urine 600 500 Physical Exam General Appearance: Alert, Oriented X3, Cooperative, No Acute Distress HEENT: Atraumatic, PERRLA, EOMI, Mucous Membr. moist/pink Cardiovascular: Normal S1, Normal S2, No Murmurs, irregular Lungs: Clear to Auscultation, Normal Air Movement Abdomen: Normal Bowel Sounds, Soft, No Tenderness Neurological: Normal Speech Extremities: No Clubbing, No Cyanosis, No Edema Current Medications: Current Medications Sig/Liudmila Start time Last Medication Dose Route Stop Time Status Admin Acetaminophen 650 MG Q6P PRN 01/13 2000 AC PO Acetaminophen 325 MG Q6P PRN 01/12 1415 AC PO Acetaminophen/ 1 TAB Q6P PRN 01/13 2000 AC 01/13 Hydrocodone Bitart PO 1944 Atorvastatin Calcium 10 MG 1700 01/12 1700 AC 01/15 PO 1651 Diltiazem HCl 60 MG Q6 01/15 1800 AC 01/16 PO 0640 Diltiazem HCl 60 MG Q8 01/13 1400 DC 01/15 PO 1502 Furosemide 40 MG DAILY 01/13 1000 DC 01/15 PO 0933 Hydromorphone HCl 0.5 MG Q4P PRN 01/13 2000 AC IV Magnesium Oxide 400 MG ONE ONE 01/15 1230 DC 01/15 PO 01/15 1231 1503 Metoprolol Tartrate 12.5 MG BID 01/16 1000 AC 01/16 PO 1011 Metoprolol Tartrate 25 MG BID 01/14 2200 DC 01/14 PO 2211 Nystatin 1 ANUPAM TID 01/12 1854 AC 01/15 TOP 2014 Phenytoin 200 MG BID 01/12 2200 AC 01/16 PO 1009 Thyroid 4 GR DAILY AC 01/12 1645 AC 01/16 PO 0641 Warfarin Sodium 1 MG 1700 01/15 1700 DC 01/15 PO 01/15 1701 1658 Last 24 Hrs of Lab/Kurt Results Last 24 Hrs of Labs/Mics: Laboratory Tests 01/16/17 0630: PT 28.1 H, INR 2.70 H, CBC w Diff NO MAN DIFF REQ, RBC 3.84 L, MCV 90.2, MCH 29.9, RDW 15.1 H, MPV 9.2, Gran % 58.1, Lymphocytes % 20.6, Monocytes % 17.7 H , Eosinophils % 3.1, Basophils % 0.5, Absolute Granulocytes 2.5, Absolute Lymphocytes 0.9 L, Absolute Monocytes 0.8 H, Absolute Eosinophils 0.1, Absolute Basophils 0, PUBS MCHC 33.2 Assessment/Plan Assessment: 87/F with PMH of hypothyroidism, hyperlipidemia, paroxysmal atrial fibrillation, seizure disorder, history of pulmonary embolism on Coumadin and was sent in to ER and found to have atrial fibrillation at her PCPs office. She was found to have A. fib with rapid ventricular response at the ED and she was was started on Cardizem drip. #1 Atrial fibrillation with rapid ventricular response She was initially started on Cardizem drip, after the heartrate was controlled, she was switched to oral Cardizem 60 mg every 8 hours that was switch to every 6 yesterday. metoprolol 25 mg twice a day was added yesterday however patient did not receive it since she has a low blood pressure. * Continue Cardizem 60 mg every 6 hours as per cardiology * Degrees metoprolol to 12.5 mg twice a day oral * We will follow cardiology recommendations #2 Lower extremity edema DVT was ruled out by negative Lower extremity Doppler. * Given the low BP we will hold lasix 40 mg today. will be restarted if BP is more stable tomorrow * NTD #3 History of learning embolism on warfarin INR is in the therapeutic range(2-3). Today's INR is 2.7. * We will does 2 mg of warfarin not the 2.5 regular dose * We'll recheck INR daily #4 History of hypothyroidism * We will continue her home dose of thyroid tab #5 Hyperlipidemia * Continue low-dose statin #6 History of seizure disorder * Continue phenytoin Regular diet Pharmacological DVT prophylaxis Full code Problem List: 1. Atrial fibrillation with RVR Pain Ratin Pain Location: na Pain Goal: Remain pain free Pain Plan: See A&P Tomorrow's Labs & Rationales: INR
[2017-01-16 16:43] VITALS: BP 90/68
[2017-01-16 23:00] VITALS: BP 106/50
--- NOTE | 2017-01-17 07:38 | PN- Housestaff ---
MAEGAN DINH,ISKYIL 01/17/17 0737: Subjective Follow-up For: Atrial fibrillation with rapid ventricular response Tele-Events Since Last Visit: Rodney mariscal, heartrate 67-117, no evidence Subjective: Patient had low blood pressure this morning. She is saturating well on room air. No acute overnight events reported. She denies chest pain, palpitation, or shortness breath. She denies any other active complaints. Review of Systems Constitutional: Reports: no symptoms. Objective Last 24 Hrs of Vital Signs/I&O Vital Signs Date Time Temp Pulse Resp B/P B/P Pulse O2 O2 Flow FiO2 Mean Ox Delivery Rate 01/17 2335 97.9 68 18 98/60 98 Room Air 01/17 1958 120 118/84 01/17 195 120 118/84 01/17 1631 97.7 105 18 96/58 96 Room Air 01/17 1054 119 100/58 01/17 0800 97.7 76 16 94/55 96 Room Air 01/17 0600 108 84/50 Intake & Output 01/18 0800 01/18 0000 01/17 1600 Intake Total 480 600 Output Total 600 475 Balance -120 125 Intake, Oral 480 600 Output, Urine 600 475 Patient 81.647 kg Weight Physical Exam General Appearance: Alert, Oriented X3, Cooperative, No Acute Distress HEENT: Atraumatic, PERRLA, EOMI, Mucous Membr. moist/pink Cardiovascular: Normal S1, Normal S2, No Murmurs, irregular Lungs: Clear to Auscultation, decrease air entry on the right side more than left side Abdomen: Soft, No Tenderness Neurological: Normal Speech Extremities: No Clubbing, No Cyanosis, +1 LE edema Current Medications: Current Medications Sig/Liudmila Start time Last Medication Dose Route Stop Time Status Admin Acetaminophen 650 MG Q6P PRN 01/13 2000 AC PO Acetaminophen 325 MG Q6P PRN 01/12 1415 AC PO Acetaminophen/ 1 TAB Q6P PRN 01/13 2000 AC 01/16 Hydrocodone Bitart PO 2303 Atorvastatin Calcium 10 MG 1700 01/12 1700 AC 01/16 PO 1722 Diltiazem HCl 240 MG DAILY 01/17 1000 CAN PO Diltiazem HCl 240 MG DAILY 01/17 1000 AC 01/17 PO 1119 Diltiazem HCl 60 MG Q6 01/15 1800 DC 05/16 PO 2359 Hydromorphone HCl 0.5 MG Q4P PRN 01/12 2000 AC IV Metoprolol Tartrate 12.5 MG BID 01/16 1000 AC 01/17 PO 1054 Nystatin 1 ANUPAM TID 01/12 1854 DC 01/16 TOP 1722 Patient Medication 1 ED .STK-MED ONE 01/16 1344 DC Teaching ED 01/16 1345 Phenytoin 200 MG BID 01/12 2200 AC 01/17 PO 1054 Thyroid 4 GR DAILY AC 01/12 1645 AC 01/17 PO 0700 Warfarin Sodium 2 MG 1700 01/16 1700 DC 01/16 PO 01/16 1701 1722 Last 24 Hrs of Lab/Kurt Results Last 24 Hrs of Labs/Mics: Laboratory Tests 01/17/17 0620: PT 22.0 H, INR 2.11 H Assessment/Plan Assessment: 87/F with PMH of hypothyroidism, hyperlipidemia, paroxysmal atrial fibrillation, seizure disorder, history of pulmonary embolism on Coumadin and was sent in to ER and found to have atrial fibrillation at her PCPs office. She was found to have A. fib with rapid ventricular response at the ED and she was was started on Cardizem drip. #1 Atrial fibrillation with rapid ventricular response She was initially started on Cardizem drip, after the heartrate was controlled, she was switched to oral Cardizem 60 mg every 8 hours that was switch to every 6 2 days ago. metoprolol 25 mg twice a day was recommended by cardiology however because of low blood pressure we decreased it to 12.5 mg twice a day * Continue Cardizem 60 mg every 6 hours as per cardiology * Degrees metoprolol to 12.5 mg twice a day oral * We will follow cardiology recommendations #2 Lower extremity edema DVT was ruled out by negative Lower extremity Doppler. * Given the low BP we will hold lasix 40 mg today. will be restarted if BP is more stable tomorrow * NTD #3 History of pulmonary embolism (on warfarin) INR is in the therapeutic range(2-3). Today's INR is 2.11. * We will does 2.5 regular dose * We'll recheck INR daily #4 History of hypothyroidism * We will continue her home dose of thyroid tab #5 Hyperlipidemia * Continue low-dose statin #6 History of seizure disorder * Continue phenytoin Regular diet Pharmacological DVT prophylaxis Full code Problem List: 1. Atrial fibrillation Pain Ratin Pain Location: NA Pain Goal: Remain pain free Pain Plan: See assessment and plan Tomorrow's Labs & Rationales: none LETA GAMBINO MD 01/17/172116: Attending MD Review Statement Attending Statement Attending MD Statement: examined this patient, discuss w/resident/PA/HOSPICE SOCIAL WORKER, agreed w/resident/PA/HOSPICE SOCIAL WORKER, reviewed EMR data (avail), discussed with nursing, discussed with case mgmt, amended to note Attending Assessment/Plan: The patient was seen and discussed with house staff. HR still in 130's with ambulation. Will maintain on monitor. Received [facility] CD this morning.
[2017-01-17 08:00] VITALS: BP 94/55
--- NOTE | 2017-01-17 11:12 | PN- Cardiology ---
Objective Vital Signs and I&Os Vital Signs Date Time Temp Pulse Resp B/P B/P Pulse O2 O2 Flow FiO2 Mean Ox Delivery Rate 01/17 1054 119 100/58 01/17 0800 97.7 76 16 94/55 96 Room Air 01/17 0600 108 84/50 01/16 2359 90 106/50 01/16 2300 97.9 90 20 106/50 99 Room Air 01/16 1722 94 98/66 01/16 1643 97.8 105 18 90/68 98 Room Air 01/16 1336 105 94/50 Intake & Output 01/17 1600 01/17 0800 01/17 0000 01/16 1600 01/16 0800 01/16 0000 Intake Total 200 100 500 480 120 Output Total 600 500 Balance 200 100 500 -120 -380 Intake, Oral 200 100 500 480 120 Number 1 1 Bowel Movements Output, Urine 600 500 Assessment/Plan Assessment/Plan 87-year-old female with a long-standing history of tobacco use, COPD, hypothyroidism, HLD, seizure disorder, possible TIA, multiple pulmonary emboli for which she was placed on warfarin anticoagulation April 2014, and brief bouts of PAF vs SVT in September 2011 w/o long-term anticoagulation given fall risk who presented from her PCPs office after she was found to be in atrial fibrillation with a rapid ventricular response and worsening right lower extremity edema. She has improved dramatically following a good diuresis, although the ventricular response to her atrial fibrillation need some fine-tuning. Would recommend increasing her Diltiazem from 60 mg 3 times daily to 60 mg 4 times daily. This can be switched over to the long-acting form of Diltiazem once we achieve adequate rate control.
--- NOTE | 2017-01-17 11:12 | PN- Cardiology ---
Subjective Subjective: No specific complaints. The ventricular response rate to her atrial fibrillation is running between 90- 100 bpm while she is resting, but can increase to the 140-150 bpm range with activity. Objective Vital Signs and I&Os Vital Signs Date Time Temp Pulse Resp B/P B/P Pulse O2 O2 Flow FiO2 Mean Ox Delivery Rate 01/17 1054 119 100/58 01/17 0800 97.7 76 16 94/55 96 Room Air 01/17 0600 108 84/50 01/16 2359 90 106/50 01/16 2300 97.9 90 20 106/50 99 Room Air 01/16 1722 94 98/66 01/16 1643 97.8 105 18 90/68 98 Room Air 01/16 1336 105 94/50 Intake & Output 01/17 1600 01/17 0800 01/17 0000 01/16 1600 01/16 0800 01/16 0000 Intake Total 200 100 500 480 120 Output Total 600 500 Balance 200 100 500 -120 -380 Intake, Oral 200 100 500 480 120 Number 1 1 Bowel Movements Output, Urine 600 500 Physical Exam: Well-developed, overweight elderly female in no acute distress with nasal oxygen in place. Vital signs: See above. HEENT: Normocephalic, atraumatic, EOMI, slightly dry mucous membranes. Neck: No JVD, no bruits. Lungs: Decreased breath sounds bilaterally with mild bilateral expiratory wheezing. Heart: S1, S2 with grade 1-2/6 systolic murmur best heard near the base. PMI fifth ICS at MCL. No gallop or rub ratio. Abdomen: Soft, nontender, positive bowel sounds. Extremities: Improved bilateral lower extremity erythema and edema. Current Medications: Current Medications Sig/Liudmila Start time Last Medication Dose Route Stop Time Status Admin Acetaminophen 650 MG Q6P PRN 01/13 2000 AC PO Acetaminophen 325 MG Q6P PRN 01/12 1415 AC PO Acetaminophen/ 1 TAB Q6P PRN 01/13 2000 AC 01/16 Hydrocodone Bitart PO 2303 Atorvastatin Calcium 10 MG 1700 01/12 1700 AC 01/16 PO 1722 Diltiazem HCl 240 MG DAILY 01/17 1000 CAN PO Diltiazem HCl 240 MG DAILY 01/17 1000 AC PO Diltiazem HCl 60 MG Q6 01/15 1800 DC 01/16 PO 2359 Hydromorphone HCl 0.5 MG Q4P PRN 01/13 2000 AC IV Metoprolol Tartrate 12.5 MG BID 01/16 1000 AC 01/17 PO 1054 Nystatin 1 ANUPAM TID 01/12 1854 FL 01/16 TOP 1722 Patient Medication 1 ED .STK-MED ONE 01/16 1344 DC Teaching ED 01/16 1345 Phenytoin 200 MG BID 01/12 2200 AC 01/17 PO 1054 Thyroid 4 GR DAILY AC 01/12 1645 AC 01/17 PO 0700 Warfarin Sodium 2 MG 1700 01/16 1700 DC 01/16 PO 01/16 1701 1722 Results Last 48 Hrs of Labs/Mics: Laboratory Tests 01/17/17 0620: PT 22.0 H, INR 2.11 H 01/16/17 0630: PT 28.1 H, INR 2.70 H, CBC w Diff NO MAN DIFF REQ, RBC 3.84 L, MCV 90.2, MCH 29.9, RDW 15.1 H, MPV 9.2, Gran % 58.1, Lymphocytes % 20.6, Monocytes % 17.7 H , Eosinophils % 3.1, Basophils % 0.5, Absolute Granulocytes 2.5, Absolute Lymphocytes 0.9 L, Absolute Monocytes 0.8 H, Absolute Eosinophils 0.1, Absolute Basophils 0, PUBS MCHC 33.2 Assessment/Plan Assessment/Plan 87-year-old female with a long-standing history of tobacco use, COPD, hypothyroidism, HLD, seizure disorder, possible TIA, multiple pulmonary emboli for which she was placed on warfarin anticoagulation April 2014, and brief bouts of PAF vs SVT in September 2011 w/o long-term anticoagulation given fall risk who presented from her PCPs office after she was found to be in atrial fibrillation with a rapid ventricular response and worsening right lower extremity edema. She has improved dramatically following a good diuresis, although the ventricular response to her atrial fibrillation need some fine-tuning. Continue telemetry? Yes
[2017-01-17 16:31] VITALS: BP 96/58
[2017-01-17 23:35] VITALS: BP 98/60
--- NOTE | 2017-01-18 07:38 | PN- Housestaff ---
HO DINH,ANISA 01/18/17 0736: Subjective Follow-up For: Afib RVR Tele-Events Since Last Visit: DAVE with HR 88-116 Subjective: Saw pt at bedside this AM. She was drinking coffee and engaging in pleasant conversation with me. She stated that she wanted to go home today. On ambulation her HR goes up to 140. Review of Systems Constitutional: Denies: chills, fever, weakness. EENTM: Reports: no symptoms. Cardiovascular: Denies: chest pain, palpitations. Respiratory: Reports: no symptoms. Gastrointestinal: Denies: abdominal pain, constipation, diarrhea. Genitourinary: Reports: no symptoms. Musculoskeletal: Reports: no symptoms. Objective Last 24 Hrs of Vital Signs/I&O Vital Signs Date Time Temp Pulse Resp B/P B/P Pulse O2 O2 Flow FiO2 Mean Ox Delivery Rate 01/18 0809 97.8 119 20 104/80 97 Room Air 01/17 2335 97.9 68 18 98/60 98 Room Air 01/17 1958 120 118/84 01/17 195 120 118/84 01/17 1631 97.7 105 18 96/58 96 Room Air 01/17 1054 119 100/58 Intake & Output 01/18 1600 01/18 0800 01/18 0000 Intake Total 480 480 Output Total 900 600 Balance -420 -120 Intake, Oral 480 480 Output, Urine 900 600 Physical Exam General Appearance: Alert, Oriented X3, Cooperative, No Acute Distress Skin: No Rashes, No Significant Lesion HEENT: Atraumatic, Mucous Membr. moist/pink Neck: Supple Cardiovascular: a.fib Lungs: Normal Air Movement Abdomen: Soft, No Tenderness Extremities: No Tenderness/Swelling Current Medications: Current Medications Sig/Liudmila Start time Last Medication Dose Route Stop Time Status Admin Acetaminophen 650 MG Q6P PRN 01/13 2000 AC PO Acetaminophen 325 MG Q6P PRN 01/12 1415 AC PO Acetaminophen/ 1 TAB Q6P PRN 01/13 2000 AC 01/16 Hydrocodone Bitart PO 2303 Atorvastatin Calcium 10 MG 1700 01/12 1700 AC 01/17 PO 1728 Diltiazem HCl 360 MG DAILY 01/18 1000 AC PO Diltiazem HCl 60 MG ONCE ONE 01/17 181 DC 01/17 PO 01/18 1816 195 Diltiazem HCl 60 MG Q6 01/17 1800 DC PO Diltiazem HCl 240 MG DAILY 01/17 1000 DC 01/17 PO 1119 Hydromorphone HCl 0.5 MG Q4P PRN 01/13 2000 AC IV Metoprolol Tartrate 12.5 MG BID 01/16 1000 AC 01/17 PO 195 Phenytoin 200 MG BID 01/12 2200 AC 01/17 PO 195 Thyroid 4 GR DAILY AC 01/12 1645 AC 01/18 PO 0639 Warfarin Sodium 2.5 MG 01/18 1700 AC PO 01/18 1701 Warfarin Sodium 2.5 MG 1700 01/17 1700 DC 01/17 PO 01/17 1701 1728 Last 24 Hrs of Lab/Kurt Results Last 24 Hrs of Labs/Mics: Laboratory Tests 01/18/17 0630: PT 24.4 H, INR 2.34 H, CBC w Diff NO MAN DIFF REQ, RBC 4.03 L, MCV 89.6, MCH 29.0, RDW 14.9 H, MPV 9.1, Gran % 57.5, Lymphocytes % 21.9, Monocytes % 17.2 H , Eosinophils % 2.6, Basophils % 0.8, Absolute Granulocytes 2.3, Absolute Lymphocytes 0.9 L, Absolute Monocytes 0.7 H, Absolute Eosinophils 0.1, Absolute Basophils 0, PUBS MCHC 32.4 L Assessment/Plan Assessment: 87/F with PMH of hypothyroidism, hyperlipidemia, paroxysmal atrial fibrillation, seizure disorder, history of pulmonary embolism on Coumadin and was sent in to ER and found to have atrial fibrillation at her PCPs office. She was found to have A. fib with rapid ventricular response at the ED and she was was started on Cardizem drip. #1 Atrial fibrillation with rapid ventricular response She was initially started on Cardizem drip, after the heartrate was controlled, she was switched to oral Cardizem 60 mg every 8 hours that was switch to every 6 ; 2 days ago. metoprolol 25 mg twice a day was recommended by cardiology however because of low blood pressure we decreased it to 12.5 mg twice a day * Continue Cardizem 60 mg every 6 hours as per cardiology * Decrease metoprolol to 12.5 mg twice a day oral * We will follow cardiology recommendations #2 Lower extremity edema DVT was ruled out by negative Lower extremity Doppler. * Consider restarting Lasix today. * NTD #3 History of pulmonary embolism (on warfarin) INR is in the therapeutic range(2-3). * We will does 2.5 regular dose * We'll recheck INR daily #4 History of hypothyroidism * We will continue her home dose of thyroid tab #5 Hyperlipidemia * Continue low-dose statin #6 History of seizure disorder * Continue phenytoin Regular diet Pharmacological DVT prophylaxis Full code Problem List: 1. Atrial fibrillation with RVR Pain Ratin Pain Location: none Pain Goal: Remain pain free Pain Plan: none Tomorrow's Labs & Rationales: inr DVT/Prophylaxis: pharmacological LETA GAMBINO MD 01/18/17 1705: Attending MD Review Statement Attending Statement Attending MD Statement: examined this patient, discuss w/resident/PA/PARTS SALVAGER, agreed w/resident/PA/PARTS SALVAGER, reviewed EMR data (avail), discussed with nursing, discussed with case mgmt, amended to note Attending Assessment/Plan: The patient was seen and discussed with house staff and cardiology. Plan is for OP cardioversion. OK to discharge to home today per cardiology.
[2017-01-18 08:03] LABS: ABSOLUTE BASOPHIL COUNT 0 /CUMM (0.0-0.2); ABSOLUTE EOSINOPHIL COUNT 0.1 /CUMM (0.0-0.7); ABSOLUTE GRANULOCYTE CT 2.3 /CUMM (1.4-6.5); ABSOLUTE LYMPH COUNT 0.9 /CUMM (1.2-3.4); ABSOLUTE MONOCYTE COUNT 0.7 /CUMM (0.10-0.60); BASOPHIL % 0.8 % (0.0-2.0); EOSINOPHIL % 2.6 % (0-5); GRANULOCYTE % 57.5 % (42.2-75.2); HEMATOCRIT 36.1 % (37-47); MEAN CORPUSCULAR HGB CONC 32.4 G/DL (33.0-37.0); MEAN CORPUSCULAR VOLUME 89.6 FL (81.0-99.0); MEAN PLATELET VOLUME 9.1 FL (7.4-10.4); PLATELET COUNT 187 /CUMM (130-400); RBC DISTRIBUTION WIDTH 14.9 % (11.5-14.5); RED BLOOD CELL CT 4.03 /CUMM (4.20-5.40); WHITE BLOOD CELL COUNT 3.9 /CUMM (4.8-10.8)
[2017-01-18 08:09] VITALS: BP 104/80
[2017-01-18 08:12] LABS: PT 24.4 SEC (9.4-12.5)
[2017-01-18 10:00] VITALS: BP 104/60
[2017-01-18] MEDS ORDERED: METOPROLOL TART25 M1 PO (10:08)
[2017-01-18] MEDS ORDERED: CARDIZEM CD120 M2 PO (10:08)
--- NOTE | 2017-01-18 10:13 | Patient Discharge Instructions ---
Discharge Instructions General Discharge Information You were seen/treated for: ATRIAL FIBRILLATION Special Instructions: Please follow up with PCP in 1 week of discharge Please fllow up with your hydraulic spinner in 1 week of discharge and he will guid you for further management of A-Fib and if you need cardiovertion in near future. Please check INR on Sunday01/22/17 and follow up with Dr Garland. Please take medications as prescribed. Please avoid un necessary exertion. Diet Recommended Diet: Heart Healthy Activity Additional ACTIVITY Info: as tolerated Acute Coronary Syndrome Inclusion Criteria At DC or during hospital stay patient has or had the following: ACS DIAGNOSIS No Discharge Core Measures Meds if any: Prescribed or Continued at Discharge Meds if any: NOT Prescribed or Continued at Discharge Congestive Heart Failure Inclusion Criteria At DC or during hospital stay patient has or had the following: CHF DIAGNOSIS No Discharge Core Measures Meds if any: Prescribed or Continued at Discharge Meds if any: NOT Prescribed or Continued at Discharge Cerebrovascular accident Inclusion Criteria At DC or during hospital stay patient has or had the following: CVA/TIA Diagnosis No Discharge Core Measures Meds if any: Prescribed or Continued at Discharge Meds if any: NOT Prescribed or Continued at Discharge Venous thromboembolism Inclusion Criteria VTE Diagnosis No VTE Type NONE VTE Confirmed by (Test) NONE Discharge Core Measures - Per Current guidelines, there needs to be overlap - treatment for the first 5 days of Warfarin therapy. - If discharged on Warfarin prior to 5 days of - overlap therapy, the patient will need to be - assessed for post discharge needs including - *Post discharge parental anticoagulation - *Warfarin and/or parental anticoagulation education - *Follow up date to check INR post discharge At least 5 days overlap therapy as Inpatient No Meds if any: Prescribed or Continued at Discharge Note: Overlap Therapy is Warfarin and Anticoagulant Meds if any: NOT Prescribed or Continued at Discharge
--- NOTE | 2017-01-18 15:46 | Discharge Summary ---
See Addendum Visit Information Visit Dates Admission Date: 01/12/17 Discharge Date: 01/18/17 Hospital Course Course Attending Physician: LETA GAMBINO MD Primary Care Physician: KELLY DINH,[place] [facility] Course: 87/F with PMH of hypothyroidism, hyperlipidemia, paroxysmal atrial fibrillation, seizure disorder, history of pulmonary embolism on Coumadin and was sent in to ER and found to have atrial fibrillation with rapid ventricular response. #1 Atrial fibrillation with rapid ventricular response She was initially started on Cardizem drip, after the heartrate was controlled, she was switched to oral Cardizem 360 mg by mouth daily and metoprolol 12.5 mg twice a day. Patient was discharged and instructed to follow up with mineral surveyor within 1-2 weeks. She was also instructed to continue warfarin 2.5 mg daily. #2 Lower extremity edema DVT was ruled out by negative Lower extremity Doppler. #3 History of pulmonary embolism (on warfarin) INR was in the therapeutic range throughout the admission. Patient was discharged and instructed to continue the same home dose of 2.5 daily, and to check INR regularly with primary care doctor #4 History of hypothyroidism We continued her home dose of thyroid tab #5 Hyperlipidemia We continued low-dose statin #6 History of seizure disorder We continued phenytoin A full detailed results of chest x-ray, echocardiogram, and lower extremity Doppler can be found below Allergies: Coded Allergies: clarithromycin (N/V PER PT DAUGHTER 01/25/17) nitrofurantoin (N/V 01/25/17) Pertinent Lab Results: SERVICE DATE: 01/12/17- EXAM TYPE: US - US-UNILATERAL VENOUS DOPPLER EXAMINATION: US TRIPLEX LOWER EXTREMITY, RIGHT CLINICAL INFORMATION: Edema. Swelling. Inflammation. Skin change COMPARISON: None TECHNIQUE: Color-flow triplex imaging with spectral analysis and compression Doppler were performed on the lower extremity. FINDINGS: Respiratory variation, normal compression and augmented flow are noted throughout the left lower extremity. The visualized common femoral vein, superficial femoral vein, profunda femoral vein, popliteal vein and midcalf peroneal and posterior tibial venous segments show no evidence of deep venous thrombosis. There is no Victor's cyst. IMPRESSION: Normal triplex scan without evidence of deep venous thrombosis involving the lower extremity. DICTATED BY: SUMAYA PETTIT MD DATE/TIME DICTATED:01/12/172137 GOLD LEAF LAYER:RAD.PLASCENCIA DATE/TIME TRANSCRIBED:01/12/172137 CONFIDENTIAL, DO NOT COPY WITHOUT APPROPRIATE AUTHORIZATION. SERVICE DATE: 01/12/17-1053 EXAM TYPE: RAD - XRY-PORTABLE CHEST XRAY EXAMINATION: XR PORTABLE CHEST CLINICAL INFORMATION: Chest pain COMPARISON: 08/01/2016 TECHNIQUE: Portable frontal view of the chest was obtained. FINDINGS: Lung volumes are symmetric. There is a small right pleural effusion with adjacent basilar opacity. There is also patchy opacity at the left lung base with a suspected trace pleural effusion. No pneumothorax is seen. There is mild fullness of the central vasculature. Cardiac size is within normal limits. Calcification is present at the aortic arch. No acute osseous findings are seen. IMPRESSION: Small right and trace left pleural effusions with adjacent bibasilar opacities which may reflect atelectasis or potentially developing consolidation. A component of central vascular congestion may be present. DICTATED BY: AMAN CASTILLO MD DATE/TIME DICTATED:01/12/171110 GOLD LEAF LAYER:RAD.PLASCENCIA DATE/TIME TRANSCRIBED:01/12/171110 CONFIDENTIAL, DO NOT COPY WITHOUT APPROPRIATE AUTHORIZATION. SERVICE DATE: 01/14/17- EXAM TYPE: CARD - ECHOCARDIOGRAM GABBY BASS Age: 87 : 1930 Gender: F Exam Date: 01/14/2017 13:24 Exam Location: [place] Ht (in): 66 Wt (lb): 180 BSA: 1.97 BP: 112 / 62 Ordering Physician: RAEANN TORRES MD Referring Physician: Shabbir Allan MD Technologist: Fidelina Bradford RDCS Room Number: 178 Indications: AFIB/FLUTTER Rhythm: Atrial fibrillation Technical Quality: Fair FINDINGS Left Ventricle Normal size left ventricle. Mild concentric left ventricular hypertrophy. No obvious regional wall motion abnormalities. Normal left ventricular ejection fraction visually estimated at >60%. Right Ventricle Normal right ventricular size and function. Right Atrium Mild to moderate right atrial dilatation. Left Atrium Mild to moderate left atrial dilatation. Mitral Valve Mitral valve thickened. Mild mitral regurgitation. Aortic Valve Trileaflet aortic valve. Mild aortic sclerosis. No aortic stenosis. Mild aortic regurgitation. Tricuspid Valve Structurally normal tricuspid valve. Moderate tricuspid regurgitation. Right ventricular systolic pressure estimated at 36 mmHg. Pulmonic Valve Pulmonic valve not well visualized, grossly normal. No pulmonic regurgitation. Pericardium Small pericardial effusion. No echocardiographic findings to suggest a hemodynamically significant pericardial effusion. Great Vessels Normal size aortic root. Dilated inferior vena cava. CONCLUSIONS Normal size left ventricle. Mild concentric left ventricular hypertrophy. No obvious regional wall motion abnormalities. Normal left ventricular ejection fraction visually estimated at > 60%. Normal right ventricular size and function. Mild to moderate atrial dilatation. Mild mitral regurgitation. Mild aortic regurgitation. Moderate tricuspid regurgitation. Right ventricular systolic pressure estimated at 36 mmHg. Small pericardial effusion. Dilated inferior vena cava. Shabbir Allan M.D. (Electronically Signed) Final Date: 15 Jan 2017 11:27 MEASUREMENTS (Male / Female) Normal Values 2D ECHO LV Diastolic Diameter PLAX 3.1 cm 4.2 - 5.9 / 3.9 - 5.3 cm LV Systolic Diameter PLAX 2.1 cm 2.1 - 4.0 cm LV Fractional Shortening PLAX 32.3 % 25 - 46 % LV Ejection Fraction 2D Teich 62.0 % IVS Diastolic Thickness 1.2 cm LVPW Diastolic Thickness 1.2 cm LV Relative Wall Thickness 0.8 RV Internal Dim ED PLAX 2.7 cm 1.9 - 3.8 cm LVOT Diameter 1.9 cm Aortic Root Diameter 3.0 cm LA Systolic Diameter LX 4.2 cm 3.0 - 4.0 / 2.7 - 3.8 cm LA Volume 49.0 cm 18 - 58 / 22 - 52 cm Ascending Aorta Diameter 3.2 cm DOPPLER AV Peak Velocity 153.0 cm/s AV Peak Gradient 9.4 mmHg AV Mean Velocity 107.0 cm/s AV Mean Gradient 5.0 mmHg AV Velocity Time Integral 24.5 cm LVOT Peak Velocity 117.0 cm/s LVOT Peak Gradient 5.5 mmHg LVOT Mean Velocity 74.5 cm/s LVOT Mean Gradient 3.0 mmHg LVOT Velocity Time Integral 17.1 cm LVOT Stroke Volume 48.5 cm AV Area Cont Eq vti 2.0 cm AV Area Cont Eq pk 2.2 cm MV Peak Velocity 119.0 cm/s MV Peak Gradient 5.7 mmHg MV Mean Velocity 61.7 cm/s MV Mean Gradient 2.0 mmHg Mitral E Point Velocity 99.2 cm/s MV PHT Velocity 125.0 cm/s MV Deceleration [place] 580.0 cm/s MV Pressure Half Time 64.7 ms MV Area PHT 3.4 cm MV Deceleration Time 204.0 ms TR Peak Velocity 276.0 cm/s TR Peak Gradient 30.5 mmHg Right Atrial Pressure 5.0 mmHg Pulmonary Artery Systolic Pressu 35.5 mmHg Right Ventricular Systolic Press 35.5 mmHg PV Peak Velocity 79.3 cm/s PV Peak Gradient 2.5 mmHg PV Mean Velocity 49.6 cm/s PV Mean Gradient 1.5 mmHg PV Velocity Time Integral 7.6 cm LV E' Lateral Velocity 14.1 cm/s Mitral E to LV E' Lateral Ratio 7.0 LV E' Septal Velocity 11.7 cm/s Mitral E to LV E' Septal Ratio 8.5 DICTATED BY: SHABBIR ALLAN MD DATE/TIME DICTATED:01/15/171126 GOLD LEAF LAYER:NICK DATE/TIME TRANSCRIBED:01/15/171126 CONFIDENTIAL, DO NOT COPY WITHOUT APPROPRIATE AUTHORIZATION. Disposition Summary Disposition Principal Diagnosis: Atrial fibrillation Additional Diagnosis: Hypothyroidism Discharge Disposition: home or self care Discharge Instructions General Discharge Information Code Status: Full Code Patient's Diet: Heart healthy Patient's Activity: Can be active as tolerated Follow-Up Instructions/Appts: Please follow up with PCP in 1 week of discharge Please fllow up with your mineral surveyor in 1 week of discharge and he will guid you for further management of A-Fib and if you need cardiovertion in near future. Please check INR on Sunday01/22/17 and follow up with Dr Allan. Medications at Discharge Discharge Medications: Continue taking these medications: Simvastatin (Simvastatin*) 20 MG TABLET 1 Tablet ORAL Every night Comments: Last Taken: 01/17/17 Time: 5:30 PM Warfarin Sodium (Coumadin) 2.5 MG TABLET 1 Tablet ORAL 5 PM Comments: Last Taken: 01/18/17 Time: 2:00 PM Acetaminophen (Acetaminophen) 325 MG CAPSULE 1 Capsule ORAL as needed for PAIN Comments: Last Taken: NOT GIVEN IN HOSPITAL Time: Furosemide (Furosemide) 40 MG TABLET 1 Tablet ORAL DAILY NEEDED as needed for DIURETIC Qty = 30 Comments: Last Taken: NOT GIVEN IN HOSPITAL Time: Thyroid,Pork ([place] Thyroid) 240 MG TABLET 1 Tablet ORAL DAILY Qty = 30 Comments: Last Taken: 01/18/17 Time: 6:40 AM Diphenoxylate HCl/Atropine (Lomotil 2.5-0.025 MG Tablet) 2.5 MG-0.025 MG TABLET 1 Tablet ORAL THREE TIMES DAILY as needed for DIARRHEA Qty = 30 Comments: Last Taken: NOT GIVEN IN HOSPITAL Time: Phenytoin Sodium Extended (Phenytoin Sodium Extended) 100 MG CAPSULE 2 Capsule ORAL TWICE DAILY Qty = 30 Comments: Last Taken: 01/18/17 Time: 10:00 AM Start taking the following new medications: Metoprolol Tartrate (Metoprolol Tartrate) 25 MG TABLET 12.5 Milligram ORAL TWICE DAILY Days = 30 No Refills Comments: Last Taken: 01/18/17 Time: 10:00 AM Diltiazem HCl (Cardizem Cd) 120 MG CAP.ER.24H 360 Milligram ORAL DAILY Days = 30 No Refills Comments: Last Taken: 01/18/17 Time: 10:00 AM Copies To: JERRELL DINH,SHABBIR Henson; KELLY DINH,ORTIZ Attending Review Statement Documenting Attending: LETA GAMBINO MD Other Findings: The patient was seen and agree with the plan of care on discharge.
== END 2017-01-18 15:00 | DRG 310 ==
LOC: ERH 10:31 → 1NO 12:49 → ERHI 12:49 → ENRESERV 12:55 → 1NO 13:31 → ENPENDDIS 01-18 10:26 → 1NO 01-18 15:00
PROVIDERS: Emergency Medicine; Internal Medicine; Internal Medicine Nephrology; Student in an Organized Health Care Education/Training Program; ADMIT Internal Medicine
DX: I48.0 Paroxysmal atrial fibrillation (principal); R56.9 Unspecified convulsions; Z79.01 Long term (current) use of anticoagulants; Z86.711 Personal history of pulmonary embolism; E03.9 Hypothyroidism, unspecified; E78.5 Hyperlipidemia, unspecified; M19.90 Unspecified osteoarthritis, unspecified site; Z85.42 Personal history of malignant neoplasm of other parts of uterus; Z85.828 Personal history of other malignant neoplasm of skin; R60.0 Localized edema
CPT/HCPCS: 1NP; 36415; 82436; 93005; 93010; 93306; 96374; 96376; 97110-GO; 97116-GO; 97161-GP; 97530-GO; 99291

== ENCOUNTER 2017-01-25 12:32 | Emergency (ER) | payer OTHER ==
[~2017-01-25] VITALS: Ht 167.6 cm; Wt 80.7 kg
[~2017-01-25 12:32] MED LIST changes: +CARDIZEM CD120 M2 PO; +DILANTIN100 M1 PO; +LOMOTIL 2.5-0.1 EACH PO; +METOPROLOL TART25 M1 PO
[2017-01-25 13:34] LABS: ABSOLUTE BASOPHIL COUNT 0 /CUMM (0.0-0.2); ABSOLUTE EOSINOPHIL COUNT 0 /CUMM (0.0-0.7); ABSOLUTE GRANULOCYTE CT 4.5 /CUMM (1.4-6.5); ABSOLUTE LYMPH COUNT 0.7 /CUMM (1.2-3.4); BASOPHIL % 0.1 % (0.0-2.0); EOSINOPHIL % 0.7 % (0-5); GRANULOCYTE % 72.3 % (42.2-75.2); HEMATOCRIT 39.2 % (37-47); MEAN CORPUSCULAR HGB 28.9 PG (27.0-31.0); MEAN CORPUSCULAR HGB CONC 32.2 G/DL (33.0-37.0); MEAN CORPUSCULAR VOLUME 89.8 FL (81.0-99.0); MEAN PLATELET VOLUME 8.5 FL (7.4-10.4); PLATELET COUNT 202 /CUMM (130-400); RED BLOOD CELL CT 4.37 /CUMM (4.20-5.40); WHITE BLOOD CELL COUNT 6.2 /CUMM (4.8-10.8)
--- NOTE | 2017-01-25 14:12 | ED GI/GU/ABDOMINAL COMPLAINT ---
History of Present Illness General Chief Complaint: Female Urogenital Problems Stated Complaint: ?UTI Source: patient Exam Limitations: no limitations Vital Signs & Intake/Output Vital Signs & Intake/Output Vital Signs Date Time Temp Pulse Resp B/P B/P Pulse O2 O2 Flow FiO2 Mean Ox Delivery Rate 01/25 1437 97.0 84 18 113/65 94 Room Air 01/25 1328 96.8 110 22 107/58 01/25 1323 98 Room Air 01/25 1252 97.7 121 15 122/73 95 Room Air Room Air ED Intake and Output 01/26 0000 01/25 1200 Intake Total Output Total Balance Patient 178 lb Weight Weight Reported by Patient Measurement Method Allergies Coded Allergies: clarithromycin (N/V PER PT DAUGHTER 01/25/17) nitrofurantoin (N/V 01/25/17) Reconcile Medications Acetaminophen 325 MG CAPSULE 1 CAP PO PRN PAIN (Reported) Ciprofloxacin HCl (Cipro) 500 MG TABLET 1 TAB PO BID URINE/KIDNEY INFECTION Diltiazem HCl (Cardizem Cd) 120 MG CAP.ER.24H 360 MG PO DAILY HEART [facility] Diphenoxylate HCl/Atropine (Lomotil 2.5-0.025 MG Tablet) 2.5 MG-0.025 MG TABLET 1 TAB PO TID PRN DIARRHEA (Reported) Furosemide 40 MG TABLET 1 TAB PO DAILY NEEDED PRN DIURETIC (Reported) Metoprolol Tartrate 25 MG TABLET 12.5 MG PO BID HEART [facility] Phenazopyridine HCl (Pyridium) 200 MG TABLET 1 TAB PO TID PRN BLADDER SPASMS Phenytoin Sodium Extended 100 MG CAPSULE 2 CAP PO BID SEZIURES (Reported) Simvastatin (Simvastatin*) 20 MG TABLET 1 TAB PO QPM PREVENTATIVE (Reported) Thyroid,Pork ([place] Thyroid) 240 MG TABLET 1 TAB PO DAILY THYROID (Reported) Warfarin Sodium (Coumadin) 2.5 MG TABLET 1 TAB PO 1700 BLOOD THINNER ( Reported) Triage Note: PT TO ED FOR ?UTI. PT STATES SHE FEELS "WOBBLY", INCREASED FREQUENCY OF URINATION, FOUL SMELLING URINE. DENIES ABD PAIN. DENIES CHANGE IN MENTAL STATUS. PT'S HR 121 IN TRIAGE, HISTORY OF AFIB. PT REPORTS SUBJECTIVE FEVER TWO NIGHTS AGO. Triage Nurses Notes Reviewed? yes ? n Is pt currently ? No Onset: Gradual Duration: day(s):, continues in ED, intermittent Quality/Severity: moderate, itching HPI: pt presents for eval of uti symptoms. pt states she has had urine infections in the past. she is feeling a discomfort with urination and the feeling of frequency. also, her daughter has noticed a malodor to the urine. pt denies fever or abd or back pain over past 48 hours, but thinks she might have had a subj fever 2 days ago. Past History Travel History Traveled to [place] past 21 day No Medical History Any Pertinent Medical History? see below for history Neurological: SEIZURE 2008 EENT: [place] Cardiovascular: AFIB, PUL EMB Respiratory: pulmonary embolism Gastrointestinal: NONE Hepatic: NONE Renal: UTI Musculoskeletal: osteoarthritis, LOWER EXTREMITY EDEMA L1 compression fracture Psychiatric: NONE Endocrine: hypothyroidism Blood Disorders: DVT Cancer(s): UTERINE CA skin ROVER TENDER/Reproductive: NONE History of MRSA: No History of VRE: No History of CDIFF: No Tetanus Vaccine: 08/23/15 Surgical History Surgical History: hysterectomy, GENEVIEVE-BSO Psychosocial History Who do you live with Family Services at Home None, INR DRAW What is your primary language Arabic Tobacco Use: Quit >30 days ago ETOH Use: denies use Illicit Drug Use: denies illicit drug use Family History Family History, If Any: Relation not specified for: FH: cancer Hx Contributory? No Review of Systems Review of Systems Constitutional: Reports: no symptoms. EENTM: Reports: no symptoms. Respiratory: Reports: no symptoms. Cardiovascular: Reports: no symptoms. GI: Reports: no symptoms. Genitourinary: Reports: see HPI. Musculoskeletal: Reports: no symptoms. Skin: Reports: no symptoms. Neurological/Psychological: Reports: no symptoms. Hematologic/Endocrine: Reports: no symptoms. Immunologic/Allergic: Reports: no symptoms. All Other Systems: Reviewed and Negative Physical Exam Physical Exam Gastrointestinal: normal bowel sounds (SEE BELOW) Comments: Gen.: Well-nourished, well-developed, no acute respiratory distress. Head: Normocephalic, atraumatic. Eyes: Normal inspection bilaterally Ears: Normal inspection bilaterally Nose: Normal inspection Throat/mouth : Moist mucosa Neck: Supple, full range of motion, no goiter Lungs: Quiet respirations Back: Normal range of motion Abdomen: Soft, nontender, nondistended, normal bowel sounds Extremities: Normal range of motion grossly, equal radial pulses, no cyanosis clubbing or edema Neurologic: Cranial nerves grossly intact, speech is clear Skin: warm and dry Psychiatric: Calm, cooperative, no apparent delusions or hallucinations Core Measures ACS in differential dx? No Severe Sepsis Present: No Septic Shock Present: No Progress Differential Diagnosis: UTI/pyelo, sepsis Plan of Care: Orders Procedure Date/time Status URINALYSIS 01/25 1253 Complete TROPONIN LEVEL 01/25 1253 Complete COMPREHENSIVE METABOLIC PANEL 01/25 1253 Complete CBC WITHOUT DIFFERENTIAL 01/25 1253 Complete EKG 01/25 1252 Active Laboratory Tests 01/25/17 1338: Urinalysis HEAVY H, Urine Color YEL, Urine Clarity CLDY H, Urine pH 7.0, Ur Specific [place] 1.020, Urine Protein 100 H, Urine Ketones NEG, Urine Nitrite NEG, Urine Bilirubin NEG@ICTO, Urine Urobilinogen 1.0, Ur Leukocyte Esterase MOD H, Ur Microscopic SEDIMENT EXAMINED, Urine RBC 15-25 H, Urine WBC 25-50 H, Ur Epithelial Cells MOD H, Urine Bacteria MANY H, Urine Hemoglobin MOD H, Urine Glucose NEG 01/25/17 1325: Anion Gap 9, Estimated GFR > 60, BUN/Creatinine Ratio 25.7 H, Glucose 97, Calcium 8.6, Total Bilirubin 0.8, AST 39 H, ALT 41, Alkaline Phosphatase 214 H , Troponin I < 0.01, Total Protein 6.8, Albumin 3.2 L, Globulin 3.6, Albumin/ Globulin Ratio 0.9 L, CBC w Diff NO MAN DIFF REQ, RBC 4.37, MCV 89.8, MCH 28.9, RDW 15.0 H, MPV 8.5, Gran % 72.3, Lymphocytes % 11.5 L, Monocytes % 15.4 H, Eosinophils % 0.7, Basophils % 0.1, Absolute Granulocytes 4.5, Absolute Lymphocytes 0.7 L, Absolute Monocytes 1.0 H, Absolute Eosinophils 0, Absolute Basophils 0, PUBS MCHC 32.2 L Initial ED EKG: AFIB, nonspecific ST T wave chg, tachycardia Prior EKG: unchanged (pt with tachycardia on prior) Comments: pts presentation c/w uti w/o convincing sign/sx of sepsis. pt feels comfortable with outpt tx with abx. Departure Departure Disposition: HOME OR SELF CARE Condition: Stable Clinical Impression Primary Impression: Urinary tract infection Qualifiers: Urinary tract infection type: site unspecified Hematuria presence: without hematuria Qualified Code: N39.0 - Urinary tract infection, site not specified Referrals: ORTIZ MENDOZA MD (PCP/Family) Additional Instructions: Cipro as prescribed to treat the urinary tract infection, Pyridium as needed for bladder spasms. Maintained a good fluid intake. Follow-up with your primary care physician on Sunday for reevaluation. Return if fever or any other concerns or worsening. Thank you for choosing the [facility] Emergency Department for your care. It was a pleasure to serve you today. Christiano Pérez M.D. [facility] Departure Forms: Customer Survey General Discharge Information Prescriptions: Current Visit Scripts Ciprofloxacin HCl (Cipro) 1 TAB PO BID #14 TAB Phenazopyridine HCl (Pyridium) 1 TAB PO TID PRN BLADDER SPASMS #9 TAB
[2017-01-25] MEDS ORDERED: PYRIDIUM200 M1 PO (14:35)
[2017-01-25] MEDS ORDERED: CIPRO500 M1 PO (14:35)
[2017-01-25 14:37] VITALS: BP 113/65
[2017-01-26] MEDS ORDERED: DILANTIN100 M1 PO ×2 (20:20)
[2017-01-26] MEDS ORDERED: CEFUROXIME500 MG PO (23:26)
[2017-01-26] MEDS ORDERED: LOMOTIL 2.5-0.1 EACH PO (23:40)
== END 2017-01-25 15:01 ==
LOC: ERH 12:32
PROVIDERS: Emergency Medicine
DX: N39.0 Urinary tract infection, site not specified (principal); I48.91 Unspecified atrial fibrillation
CPT/HCPCS: 81001; 93005; 93010

== ENCOUNTER 2017-01-26 19:35 | Emergency (ER) | payer OTHER ==
[~2017-01-26] VITALS: Ht 167.6 cm; Wt 81.6 kg
[~2017-01-26 19:35] MED LIST changes: +CIPRO500 M1 PO; +PYRIDIUM200 M1 PO
--- NOTE | 2017-01-26 20:08 | ED CARDIAC/CP/PALPITATIONS ---
History of Present Illness General Chief Complaint: General Adult Stated Complaint: AFIB DIAHHREA HR 122 O2 96% Source: patient, family Exam Limitations: no limitations Vital Signs & Intake/Output Vital Signs & Intake/Output Vital Signs Date Time Temp Pulse Resp B/P B/P Pulse O2 O2 Flow FiO2 Mean Ox Delivery Rate 01/26 2103 Room Air Room Air 01/26 2047 97.9 114 15 114/60 96 Room Air Room Air 01/27 2000 97.4 114 18 108/66 95 Room Air Allergies Coded Allergies: clarithromycin (N/V PER PT DAUGHTER 01/25/17) nitrofurantoin (N/V 01/25/17) Reconcile Medications Acetaminophen 325 MG CAPSULE 1 CAP PO PRN PAIN (Reported) Cefuroxime Axetil (Cefuroxime) 500 MG TABLET 1 TAB PO BID uti Ciprofloxacin HCl (Cipro) 500 MG TABLET 1 TAB PO BID URINE/KIDNEY INFECTION Diltiazem HCl (Cardizem Cd) 120 MG CAP.ER.24H 360 MG PO DAILY HEART HEALTH Diphenoxylate HCl/Atropine (Lomotil 2.5-0.025 MG Tablet) 2.5 MG-0.025 MG TABLET 1 TAB PO TID PRN DIARRHEA (Reported) Diphenoxylate HCl/Atropine (Lomotil 2.5-0.025 MG Tablet) 2.5 MG-0.025 MG TABLET 1 TAB PO 4 TIMES/DAY PRN diarrhea fifteen...[id number] Furosemide 40 MG TABLET 1 TAB PO DAILY NEEDED PRN DIURETIC (Reported) Metoprolol Tartrate 25 MG TABLET 12.5 MG PO BID HEART HEALTH Phenazopyridine HCl (Pyridium) 200 MG TABLET 1 TAB PO TID PRN BLADDER SPASMS Phenytoin (Dilantin) 100 MG CAPSULE 2 CAP PO AD SEIZURES (Reported) Phenytoin (Dilantin) 100 MG CAPSULE 3 CAP PO AD SEIZUYRES (Reported) Simvastatin (Simvastatin*) 20 MG TABLET 1 TAB PO QPM PREVENTATIVE (Reported) Thyroid,Pork ([place] Thyroid) 240 MG TABLET 1 TAB PO DAILY THYROID (Reported) Warfarin Sodium (Coumadin) 2.5 MG TABLET 1 TAB PO 1700 BLOOD THINNER ( Reported) Triage Nurses Notes Reviewed? yes Onset: Gradual Duration: day(s): Timing: recent history Quality/Severity: moderate Location: "I have no chest pain... I just have diarrhea." Radiation: no radiation Activities at Onset: "I've been taking antibiotics for a urine infection" Prior Chest Pain/Card Workup: no prior chest pain Associated Symptoms: diarrhea HPI: 87-year-old woman on Coumadin for A. fib and PE, was seen yesterday for urinary tract infection started on ciprofloxacin. She presents with diarrhea and palpitations for one day. She shares that she saw her fishing accessories maker. She stated that she had a pulse in the 120s. He increased her Lopressor from one half a pill to one pill twice a day. She states that she still had diarrhea and came to the emergency room for further evaluation. She notes that her Coumadin level at the fishing accessories maker's office was 8. She states that she has no chest pain fever shortness of breath nausea or vomiting. Past History Travel History Traveled to [place] past 21 day No Medical History Any Pertinent Medical History? 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 No Review of Systems Review of Systems Constitutional: Reports: no symptoms. EENTM: Reports: no symptoms. Respiratory: Reports: no symptoms. Cardiovascular: Reports: no symptoms. GI: Reports: no symptoms. Genitourinary: Reports: no symptoms. Musculoskeletal: Reports: no symptoms. Skin: Reports: no symptoms. Neurological/Psychological: Reports: no symptoms. Hematologic/Endocrine: Reports: no symptoms. Immunologic/Allergic: Reports: no symptoms. All Other Systems: Reviewed and Negative Physical Exam Physical Exam General Appearance: well developed/nourished, mild distress Head: atraumatic, normal appearance Eyes: Bilateral: normal appearance. Ears, Nose, Throat: normal ENT inspection, dry mucosa Neck: normal inspection, supple, full range of motion Respiratory: normal breath sounds, chest non-tender, no respiratory distress, quiet respiration, lungs clear Cardiovascular: irregularly irregular, tachycardic Gastrointestinal: normal bowel sounds Back: normal inspection Extremities: normal inspection Neurologic/Psych: no motor/sensory deficits, awake, alert, oriented x 3 Core Measures ACS in differential dx? No Severe Sepsis Present: No Septic Shock Present: No Progress Differential Diagnosis: AFIB, DEHYDRATION VS OTHER. Plan of Care: Orders Procedure Date/time Status TROPONIN LEVEL 01/26 1953 Complete PARTIAL THROMBOPLASTIN TIME 01/26 1953 Complete PROTHROMBIN TIME 01/26 1953 Complete COMPREHENSIVE METABOLIC PANEL 01/26 1953 Complete CBC WITHOUT DIFFERENTIAL 01/26 1953 Complete B-TYPE NATRIURETIC PEP (BNP) 01/26 1953 Complete EKG 01/26 1939 Active Current Medications Sig/Liudmila Start time Last Medication Dose Stop Time Status Admin Diphenoxylate HCl/ 2.5 MG ONCE ONE 01/265 UNVr Atropine 01/26 2346 (Lomotil) Laboratory Tests 01/26/172004: Anion Gap 8, Estimated GFR > 60, BUN/Creatinine Ratio 28.3 H, Glucose 79, Calcium 8.2 L, Total Bilirubin 0.7, AST 50 H, ALT 41, Alkaline Phosphatase 203 H, Troponin I < 0.01, Hlm-N-Xlrxknoavhi Pept 2210 H, Total Protein 6.6, Albumin 3.0 L, Globulin 3.6, Albumin/Globulin Ratio 0.8 L, PT > 103.0 *H, INR > 10.0 *H, APTT 59 H, CBC w Diff MAN DIFF ORDERED, RBC 4.37, MCV 88.9, MCH 28.5 , RDW 14.6 H, MPV 8.3, Segmented Neutrophils 70, Band Neutrophils 1, Lymphocytes 12 L, Monocytes 16 H, Eosinophils 1, Platelet Estimate ADEQUATE, Normocytic RBCs VERIFIED, Normochromic RBCs VERIFIED, PUBS MCHC 32.1 L Diagnostic Imaging: Viewed by Me: Radiology Read. Discussed w/RAD: Radiology Read. CXR Impression: no acute abnormality, no infiltrates, normal size heart, normal mediastinum, small right pleural effusion Initial ED EKG: AFIB, TACHYCARDIA Comments: PATIENT: GABBY BASS PRESENT AGE: 87 PATIENT ACCOUNT NO: [id number] : 31 LOCATION: ER ORDERING PHYSICIAN: VINCENT CULLEN MD SERVICE DATE: 01/26/17 EXAM TYPE: RAD - XRY-PORTABLE CHEST XRAY EXAMINATION: XR PORTABLE CHEST CLINICAL INFORMATION: Chest discomfort COMPARISON: 08/14/2017 TECHNIQUE: Portable frontal view of the chest was obtained. FINDINGS: Low lung volumes. Persistent small right pleural effusion with airspace opacity. Mild improved aeration at the left base. No pneumothorax. The cardiomediastinal silhouette is unchanged. IMPRESSION: Persistent small right pleural effusion with associated airspace opacity. Improved aeration at the left base. DICTATED BY: TRENTON ALVARADO MD DATE/TIME DICTATED:01/26/172042 CORPORATE ACCOUNT EXECUTIVE:NICK DATE/TIME TRANSCRIBED:01/26/172042 CONFIDENTIAL, DO NOT COPY WITHOUT APPROPRIATE AUTHORIZATION. <Electronically signed in Other Vendor System> SIGNED BY: TRENTON ALVARADO MD 01/26 Departure Departure Disposition: HOME OR SELF CARE Condition: Stable Clinical Impression Primary Impression: Elevated INR Secondary Impressions: Atrial fibrillation, Diarrhea, UTI (urinary tract infection) Referrals: ORTIZ MENDOZA MD (PCP/Family) Departure Forms: Customer Survey General Discharge Information Prescriptions: Current Visit Scripts Cefuroxime Axetil (Cefuroxime) 1 TAB PO BID #14 TAB Diphenoxylate HCl/Atropine (Lomotil 2.5-0.025 MG Tablet) 1 TAB PO 4 TIMES/DAY PRN diarrhea #15 TAB fifteen...[id number] Comments 01/26/17, 23:27.... pulse in 80-90's after iv fluids... pt is insistent about going home. No active bleeding. she will return to the ed for an inr check. i prescribed cefuroxime which has fewer drug-drug interactions with coumadin. She will also stop her coumadin. She received vitamin k 10mg sc. I counseled her to return to the ED if she bumps or scrapes herself. She will also follow up on sunday with her physician. Critical Care Note Critical Care Note Critical Care Time: non-applicable
[2017-01-26 20:11] LABS: HEMATOCRIT 38.8 % (37-47); MEAN CORPUSCULAR HGB 28.5 PG (27.0-31.0); MEAN CORPUSCULAR HGB CONC 32.1 G/DL (33.0-37.0); MEAN CORPUSCULAR VOLUME 88.9 FL (81.0-99.0); MEAN PLATELET VOLUME 8.3 FL (7.4-10.4); PLATELET COUNT 194 /CUMM (130-400); RBC DISTRIBUTION WIDTH 14.6 % (11.5-14.5); RED BLOOD CELL CT 4.37 /CUMM (4.20-5.40); WHITE BLOOD CELL COUNT 4.4 /CUMM (4.8-10.8)
[2017-01-26] MEDS ORDERED: DILANTIN100 M1 PO ×2 (20:20)
[2017-01-26 20:37] LABS: PTT 59 SEC (25-37)
[2017-01-26 20:42] LABS: PT > 103.0 SEC (9.4-12.5)
--- NOTE | 2017-01-26 20:49 | RADIOLOGY REPORT ---
EXAMINATION: XR PORTABLE CHEST CLINICAL INFORMATION: Chest discomfort COMPARISON: 08/14/2017 TECHNIQUE: Portable frontal view of the chest was obtained. FINDINGS: Low lung volumes. Persistent small right pleural effusion with airspace opacity. Mild improved aeration at the left base. No pneumothorax. The cardiomediastinal silhouette is unchanged. IMPRESSION: Persistent small right pleural effusion with associated airspace opacity. Improved aeration at the left base.
[2017-01-26] MEDS ORDERED: CEFUROXIME500 MG PO (23:26)
[2017-01-26] MEDS ORDERED: LOMOTIL 2.5-0.1 EACH PO (23:40)
[2017-01-26 23:49] VITALS: BP 104/64
[2017-01-28] MEDS ORDERED: METOPROLOL TART25 M1 PO (20:53)
== END 2017-01-27 00:02 ==
LOC: ERH 19:35
PROVIDERS: Pediatrics
DX: I48.91 Unspecified atrial fibrillation (principal); N39.0 Urinary tract infection, site not specified; R79.1 Abnormal coagulation profile; Z79.1 Long term (current) use of non-steroidal anti-inflammatories (NSAID)
CPT/HCPCS: 93005; 93010; 96360; 96361; 96372; J7040

== ENCOUNTER 2017-01-28 18:31 | Emergency (ER) | payer OTHER ==
[~2017-01-28] VITALS: Ht 167.6 cm; Wt 81.6 kg
--- NOTE | 2017-01-28 20:03 | ED GENERAL ADULT ---
History of Present Illness General Chief Complaint: General Adult Stated Complaint: LETHARGY Source: patient, family, old records Exam Limitations: no limitations Vital Signs & Intake/Output Vital Signs & Intake/Output Vital Signs Date Time Temp Pulse Resp B/P B/P Pulse O2 O2 Flow FiO2 Mean Ox Delivery Rate 01/29 2004 98 Room Air 01/28 2002 98.7 100 22 156/67 98 Room Air 01/28 1839 97.7 139 16 103/67 94 Room Air Allergies Coded Allergies: clarithromycin (N/V PER PT DAUGHTER 01/25/17) nitrofurantoin (N/V 01/25/17) Reconcile Medications Acetaminophen 325 MG CAPSULE 1 CAP PO PRN PAIN (Reported) Cefuroxime Axetil (Cefuroxime) 500 MG TABLET 1 TAB PO BID uti Ciprofloxacin HCl (Cipro) 500 MG TABLET 1 TAB PO BID URINE/KIDNEY INFECTION Diltiazem HCl (Cardizem Cd) 120 MG CAP.ER.24H 360 MG PO DAILY HEART HEALTH Diphenoxylate HCl/Atropine (Lomotil 2.5-0.025 MG Tablet) 2.5 MG-0.025 MG TABLET 1 TAB PO TID PRN DIARRHEA (Reported) Diphenoxylate HCl/Atropine (Lomotil 2.5-0.025 MG Tablet) 2.5 MG-0.025 MG TABLET 1 TAB PO 4 TIMES/DAY PRN diarrhea fifteen...[id number] Furosemide 40 MG TABLET 1 TAB PO DAILY NEEDED PRN DIURETIC (Reported) Metoprolol Tartrate 25 MG TABLET 1 TAB PO BID HEART/BP (Reported) Metoprolol Tartrate 25 MG TABLET 12.5 MG PO BID HEART HEALTH Phenazopyridine HCl (Pyridium) 200 MG TABLET 1 TAB PO TID PRN BLADDER SPASMS Phenytoin (Dilantin) 100 MG CAPSULE 2 CAP PO BID SEIZURES (Reported) Phenytoin (Dilantin) 100 MG CAPSULE 3 CAP PO AD SEIZURES (Reported) Simvastatin (Simvastatin*) 20 MG TABLET 1 TAB PO QPM PREVENTATIVE (Reported) Thyroid,Pork ([place] Thyroid) 240 MG TABLET 1 TAB PO DAILY THYROID (Reported) Warfarin Sodium (Coumadin) 2.5 MG TABLET 1 TAB PO 1700 BLOOD THINNER ( Reported) Triage Note: PT STATES SHE WAS SEEN TWO DAYS AGO FOR SOB. PT STATES SHE FELT FINE YESTERDAY BUT TODAY SHE IS SOB AND STATES SHE IS HAVING A HARD TIME LIFTING HER LEGS TODAY. PT IS CURRENTLY ON ABX FOR UTI. Triage Nurses Notes Reviewed? yes HPI: Patient presents with shortness of breath and bilateral leg weakness. Patient was recently admitted to the hospital for new onset atrial fibrillation. Patient was discharged home. Patient came back to the ER 2 days ago complaining of shortness of breath. A workup was completely negative except for a UTI for which she was started on antibiotics and the patient was discharged home. Certainly the patient states that she felt fine. She woke up this morning feeling short of breath however she then ate breakfast and felt better. She was feeling fine all afternoon and then this evening she became a little short of breath and felt like she could not pick her legs up off the couch. Patient denies any numbness or tingling. There is no headache. Patient is able to move her legs she just states that they feel heavier than normal. Patient denies any chest pain or palpitations. There is no orthopnea. There is no dyspnea on exertion. There is no coughing. There are no fevers or chills. There is no nausea or vomiting. There is no anorexia. Past History Travel History Traveled to [place] past 21 day No Medical History Any Pertinent Medical History? 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 No Review of Systems Review of Systems Constitutional: Reports: no symptoms. EENTM: Reports: no symptoms. Respiratory: Reports: see HPI, short of breath. Cardiovascular: Reports: no symptoms. GI: Reports: no symptoms. Genitourinary: Reports: no symptoms. Musculoskeletal: Reports: see HPI. Skin: Reports: no symptoms. Neurological/Psychological: Reports: no symptoms. Hematologic/Endocrine: Reports: no symptoms. Immunologic/Allergic: Reports: no symptoms. All Other Systems: Reviewed and Negative Physical Exam Physical Exam General Appearance: well developed/nourished, alert, awake, mild distress Head: atraumatic, normal appearance Eyes: Bilateral: PERRL, EOMI. Ears, Nose, Throat: normal pharynx, normal ENT inspection, hearing grossly normal Neck: normal inspection, supple, full range of motion Respiratory: normal breath sounds, chest non-tender, no respiratory distress, lungs clear Cardiovascular: normal peripheral pulses, irregularly irregular Gastrointestinal: normal bowel sounds, soft, non-tender, no organomegaly Back: normal inspection, normal range of motion Extremities: normal inspection, normal capillary refill, normal range of motion, pedal edema Neurologic/Psych: no motor/sensory deficits, awake, alert, oriented x 3, normal mood/affect Skin: intact, normal color, warm/dry Lymphatic: no anterior cervical ling Core Measures ACS in differential dx? Yes ASA ordered for poss ACS? No-ACS ruled out CVA/TIA Diagnosis: No Severe Sepsis Present: No Septic Shock Present: No Progress Differential Diagnoses I considered the following diagnoses in my evaluation of the patient: [ Electrolyte abnormality, AMI, PE, CHF, pneumonia] Plan of Care: Orders Procedure Date/time Status PARTIAL THROMBOPLASTIN TIME 01/29 2004 Complete PROTHROMBIN TIME 01/29 2004 Complete Telemetry/Composing Machine Operator 01/28 2003 Active URINALYSIS 01/28 2003 Complete TROPONIN LEVEL 01/28 2003 Complete COMPREHENSIVE METABOLIC PANEL 01/28 2003 Complete CBC WITHOUT DIFFERENTIAL 01/28 2003 Complete B-TYPE NATRIURETIC PEP (BNP) 01/28 2003 Complete EKG 01/28 1840 Active Laboratory Tests 01/28/17 2045: Urinalysis MOD H, Urine Color STRAW, Urine Clarity HAZY H, Urine pH 6.0, Ur Specific [place] 1.015, Urine Protein 30 H, Urine Ketones NEG, Urine Nitrite POS H, Urine Bilirubin NEG, Urine Urobilinogen 0.2, Ur Leukocyte Esterase MOD H, Ur Microscopic SEDIMENT EXAMINED, Urine RBC RARE, Urine WBC 25-50 H, Ur Epithelial Cells MOD H, Urine Bacteria FEW H, Urine Hemoglobin SMALL H, Urine Glucose NEG 01/28/17 2015: Anion Gap 9, Estimated GFR > 60, BUN/Creatinine Ratio 26.3 H, Glucose 93, Calcium 8.1 L, Total Bilirubin 0.6, AST 30, ALT 42, Alkaline Phosphatase 196 H , Troponin I < 0.01, [id number] Pept 2000 H, Total Protein 6.8, Albumin 3.2 L, Globulin 3.6, Albumin/Globulin Ratio 0.9 L, PT 16.2 H, INR 1.55 H, APTT 32, CBC w Diff NO MAN DIFF REQ, RBC 4.46, MCV 89.9, MCH 28.6, RDW 15.2 H, MPV 8.5, Gran % 74.2, Lymphocytes % 11.9 L, Monocytes % 12.3 H, Eosinophils % 1.5, Basophils % 0.1, Absolute Granulocytes 5.3, Absolute Lymphocytes 0.8 L, Absolute Monocytes 0.9 H, Absolute Eosinophils 0.1, Absolute Basophils 0, PUBS MCHC 31.8 L Diagnostic Imaging: Viewed by Me: Radiology Read. Discussed w/RAD: Radiology Read. CXR Impression: PATIENT: GABBY BASS PRESENT AGE: 87 PATIENT ACCOUNT NO: [id number] : 31 LOCATION: [facility] ORDERING PHYSICIAN: AMAN CLEMONS MD SERVICE DATE: 01/28/17 EXAM TYPE: RAD - XRY- PORTABLE CHEST XRAY EXAMINATION: XR PORTABLE CHEST CLINICAL INFORMATION: Shortness of breath. Evaluate for pneumonia. COMPARISON: Multiple priors, most recent chest radiograph dated 01/25/2017. TECHNIQUE: Portable frontal view of the chest was obtained. FINDINGS: Unchanged small right-sided pleural effusion with adjacent atelectasis versus infiltrates. Stable patchy left lung base airspace opacities which could represent atelectasis versus infiltrates. No pneumothorax. Stable cardiomediastinal silhouette. No acute osseous abnormality. IMPRESSION: Stable small right-sided pleural effusion with adjacent atelectasis versus infiltrates. Unchanged left lung base atelectasis versus infiltrates. DICTATED BY: NICOLE ERNST MD DATE/TIME DICTATED:01/28/172034 [employer] POLICE OFFICER:NICK DATE/TIME TRANSCRIBED:01/28/172034 CONFIDENTIAL, DO NOT COPY WITHOUT APPROPRIATE AUTHORIZATION. <Electronically signed in Other Vendor System> SIGNED BY: NICOLE ERNST MD 01/28/172039 Initial ED EKG: AFIB, nonspecific ST T wave chg Prior EKG: unchanged Rhythm Strip: atrial fibrillation Comments: Patient is feeling much better. We will attempt to ambulate the patient. Patient ambulated in the emergency department with the use a walker. Patient uses a walker at home and has a bedside commode. Patient and daughter feel comfortable going home. Departure Departure Disposition: HOME OR SELF CARE Condition: Stable Clinical Impression Primary Impression: Dyspnea Qualifiers: Dyspnea type: other forms of dyspnea Qualified Code: R06.09 - Other forms of dyspnea Secondary Impressions: Weakness Referrals: ORTIZ MENDOZA MD (PCP/Family) Additional Instructions: Return for any concerns. Continue the antibiotics for a urinary tract infection. Departure Forms: Customer Survey General Discharge Information Critical Care Note Critical Care Note Critical Care Time: non-applicable
[2017-01-28 20:34] LABS: ABSOLUTE BASOPHIL COUNT 0 /CUMM (0.0-0.2); ABSOLUTE EOSINOPHIL COUNT 0.1 /CUMM (0.0-0.7); ABSOLUTE GRANULOCYTE CT 5.3 /CUMM (1.4-6.5); ABSOLUTE LYMPH COUNT 0.8 /CUMM (1.2-3.4); ABSOLUTE MONOCYTE COUNT 0.9 /CUMM (0.10-0.60); BASOPHIL % 0.1 % (0.0-2.0); EOSINOPHIL % 1.5 % (0-5); GRANULOCYTE % 74.2 % (42.2-75.2); HEMATOCRIT 40.1 % (37-47); MEAN CORPUSCULAR HGB 28.6 PG (27.0-31.0); MEAN CORPUSCULAR HGB CONC 31.8 G/DL (33.0-37.0); MEAN CORPUSCULAR VOLUME 89.9 FL (81.0-99.0); MEAN PLATELET VOLUME 8.5 FL (7.4-10.4); PLATELET COUNT 211 /CUMM (130-400); RBC DISTRIBUTION WIDTH 15.2 % (11.5-14.5); RED BLOOD CELL CT 4.46 /CUMM (4.20-5.40); WHITE BLOOD CELL COUNT 7.1 /CUMM (4.8-10.8)
[2017-01-28 20:39] LABS: PT 16.2 SEC (9.4-12.5); PTT 32 SEC (25-37)
--- NOTE | 2017-01-28 20:40 | RADIOLOGY REPORT ---
EXAMINATION: XR PORTABLE CHEST CLINICAL INFORMATION: Shortness of breath. Evaluate for pneumonia. COMPARISON: Multiple priors, most recent chest radiograph dated 01/25/2017. TECHNIQUE: Portable frontal view of the chest was obtained. FINDINGS: Unchanged small right-sided pleural effusion with adjacent atelectasis versus infiltrates. Stable patchy left lung base airspace opacities which could represent atelectasis versus infiltrates. No pneumothorax. Stable cardiomediastinal silhouette. No acute osseous abnormality. IMPRESSION: Stable small right-sided pleural effusion with adjacent atelectasis versus infiltrates. Unchanged left lung base atelectasis versus infiltrates.
[2017-01-28] MEDS ORDERED: METOPROLOL TART25 M1 PO (20:53)
[2017-01-28 22:07] VITALS: BP 125/88
== END 2017-01-28 22:09 ==
LOC: ERH 18:31
PROVIDERS: Emergency Medicine
DX: R06.00 Dyspnea, unspecified (principal); R53.1 Weakness
CPT/HCPCS: 81001; 93005; 93010

== ENCOUNTER 2017-01-29 19:46 | Inpatient (IN) | payer OTHER ==
[~2017-01-29] VITALS: Ht 167.6 cm; Wt 93.4 kg
--- NOTE | 2017-01-29 19:52 | ED AMS/SEIZURE/WEAK/DIZZY ---
History of Present Illness General Chief Complaint: General Adult Stated Complaint: WEAKNESS Source: family Exam Limitations: no limitations Vital Signs & Intake/Output Vital Signs & Intake/Output Vital Signs Date Time Temp Pulse Resp B/P B/P Pulse O2 O2 Flow FiO2 Mean Ox Delivery Rate 01/30 95 Room Air 01/29 2334 97.8 104 18 98/60 96 Room Air 01/29 2009 95 Room Air 01/299 97.3 123 18 112/64 98 Room Air ED Intake and Output 01/30 0000 01/29 1200 Intake Total Output Total Balance Patient 172 lb Weight Weight Estimated Measurement Method Allergies Coded Allergies: clarithromycin (N/V PER PT DAUGHTER 01/25/17) nitrofurantoin (N/V 01/25/17) Reconcile Medications Acetaminophen 325 MG CAPSULE 1 CAP PO PRN PAIN (Reported) Cefuroxime Axetil (Cefuroxime) 500 MG TABLET 1 TAB PO BID uti Diltiazem HCl (Cardizem Cd) 120 MG CAP.ER.24H 360 MG PO DAILY HEART HEALTH Diphenoxylate HCl/Atropine (Lomotil 2.5-0.025 MG Tablet) 2.5 MG-0.025 MG TABLET 1 TAB PO 4 TIMES/DAY PRN diarrhea fifteen...[id number] Furosemide 40 MG TABLET 1 TAB PO DAILY NEEDED PRN DIURETIC (Reported) Metoprolol Tartrate 25 MG TABLET 1 TAB PO BID HEART/BP (Reported) Metoprolol Tartrate 25 MG TABLET 12.5 MG PO BID HEART HEALTH Phenytoin (Dilantin) 100 MG CAPSULE 2 CAP PO BID SEIZURES (Reported) Simvastatin (Simvastatin*) 20 MG TABLET 1 TAB PO QPM PREVENTATIVE (Reported) Thyroid,Pork (Rosebud Thyroid) 240 MG TABLET 1 TAB PO DAILY THYROID (Reported) Warfarin Sodium (Coumadin) 2.5 MG TABLET 1 TAB PO 1700 BLOOD THINNER ( Reported) Triage Nurses Notes Reviewed? yes Onset: Gradual Duration: day(s):, waxing and waning Timing: recent history Injury Environment: home Severity: moderate Modifying Factors: Improves With: rest. Worsens With: movement. Associated Symptoms: weakness HPI: 87 yo woman h/o afib, h/o uti, on cipro, 4th visit to ED over past few days, presents after an episode of weakness and a fall. The medics note that she was walking, felt weak. "Her son said that she dropped to her knees, and then he eased her to the ground." Decreased oral intake, increased fatigue and weakness. No loss of consciousness, fever, cough, runny nose. Past History Travel History Traveled to [place] past 21 day No Medical History Any Pertinent Medical History? 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 No Review of Systems Review of Systems Constitutional: Reports: no symptoms. EENTM: Reports: no symptoms. Respiratory: Reports: no symptoms. Cardiovascular: Reports: no symptoms. GI: Reports: no symptoms. Genitourinary: Reports: no symptoms. Musculoskeletal: Reports: no symptoms. Skin: Reports: no symptoms. Neurological/Psychological: Reports: no symptoms. Hematologic/Endocrine: Reports: no symptoms. Immunologic/Allergic: Reports: no symptoms. All Other Systems: Reviewed and Negative Physical Exam Physical Exam General Appearance: well developed/nourished, mild distress Head: atraumatic, normal appearance Eyes: Bilateral: normal appearance. Ears, Nose, Throat: normal ENT inspection, hearing grossly normal, dry mucosa Neck: normal inspection, supple, full range of motion Respiratory: normal breath sounds, chest non-tender, no respiratory distress, quiet respiration, lungs clear Cardiovascular: regular rate/rhythm Gastrointestinal: normal bowel sounds, soft, non-tender, no organomegaly Back: normal inspection, normal range of motion Extremities: normal range of motion Neurologic/Psych: no motor/sensory deficits, awake, alert, oriented x 3 Skin: intact, normal color, warm/dry Core Measures ACS in differential dx? No CVA/TIA Diagnosis: No Severe Sepsis Present: No Septic Shock Present: No Progress Differential Diagnosis: syncope vs mi vs sepsis vs dehydration vs other. Plan of Care: Orders Procedure Date/time Status Heart Healthy Diet 01/30 B Active XRY-KNEE, LEFT 01/30 0800 Active PROTHROMBIN TIME 01/30 0600 Active PHENYTOIN 01/30 0600 Active BASIC ELECTROLYTES PLUS BUN&CR 01/30 0600 Active Pathway - chart 01/30 0352 Active TROPONIN LEVEL 01/30 0103 Complete EKG 01/30 0103 Active LACTIC ACID 01/30 0101 Complete C.DIFFICILE 01/30 0048 Active Vital Signs 01/30 0002 Complete Teach/Educate 01/30 0002 Active Pain Treatment and Response 01/30 0002 Active Nutritional Intake, Monitor 01/30 0002 Active Isolation 01/30 0002 Active Intake & Output 01/30 0002 Complete Patient Care Conference 01/30 0002 Active Activity/Ambulation 01/30 0002 Active Vital Signs 01/30 UNK Complete Pathway - chart 01/29 2308 Active Patient Data 01/29 2227 Active Saline Lock 01/29 221 Active Misc Message 01/29 221 Active ED Holding Orders 01/29 221 Active Vital Signs 01/29 221 Active Code Status 01/30 2216 Active Admit to inpatient 01/29 2215 Active LACTIC ACID 01/29 2201 Complete EKG 01/29 2023 Active FingerStick- Glucose 01/29 2011 Active Intake & Output 01/30 2000 Active BLOOD CULTURE 01/30 2000 Active CULTURE,URINE 01/29 1955 Active BLOOD CULTURE 01/29 1955 Active TROPONIN LEVEL 01/29 1954 Complete PARTIAL THROMBOPLASTIN TIME 01/29 1954 Complete PROTHROMBIN TIME 01/29 1954 Complete COMPREHENSIVE METABOLIC PANEL 01/29 1954 Complete CBC WITHOUT DIFFERENTIAL 01/29 1954 Complete Pathway - chart 01/29 UNK Active House Staff 01/29 UNK Active VTE Mechanical Prophylaxis 01/29 UNK Active Vital Signs 01/29 UNK Complete MISTAKE 01/29 UNK Active Precautions 01/29 UNK Active Current Medications Sig/Liudmila Start time Last Medication Dose Stop Time Status Admin Atorvastatin Calcium 10 MG 1700 01/30 1700 AC (Lipitor) Diltiazem HCl 360 MG DAILY 01/30 1000 AC (Cardizem CD) Metoprolol Tartrate 25 MG BID 01/30 1000 AC (Lopressor) Phenytoin 200 MG BID 01/30 1000 AC (Dilantin ER) Acetaminophen 650 MG Q6 PRN 01/30 0400 UNVr (Tylenol) Morphine Sulfate 1 MG Q6-PRN PRN 01/30 0400 UNVr (Morphine) Oxycodone HCl 5 MG Q6 PRN 01/30 0400 UNVr (Roxicodone) Laboratory Tests 01/30/17 0200: Troponin I < 0.01 01/30/17 0200: Lactic Acid 0.9 01/29/172203: Lactic Acid 1.0 01/29/172047: Anion Gap 8, Estimated GFR > 60, BUN/Creatinine Ratio 28.6 H, Glucose 83, Calcium 8.0 L, Total Bilirubin 0.7, AST 23, ALT 36, Alkaline Phosphatase 183 H , Troponin I < 0.01, Total Protein 6.3, Albumin 2.9 L, Globulin 3.4, Albumin/ Globulin Ratio 0.9 L, PT 14.7 H, INR 1.40 H, APTT 30, CBC w Diff NO MAN DIFF REQ, RBC 4.17 L, MCV 89.9, MCH 28.9, RDW 15.1 H, MPV 8.5, Gran % 73.5, Lymphocytes % 11.9 L, Monocytes % 12.9 H, Eosinophils % 1.7, Basophils % 0 L, Absolute Granulocytes 4.9, Absolute Lymphocytes 0.8 L, Absolute Monocytes 0.9 H, Absolute Eosinophils 0.1, Absolute Basophils 0, PUBS MCHC 32.1 L Microbiology 01/30 004 STOOL: Clostridium difficile Toxin A & B - ORD 01/29 2115 BLOOD: Blood Culture - RECD 01/30 2048 BLOOD: Blood Culture - RECD 01/29 1955 URINE ROUT: Urine Culture - ORD Diagnostic Imaging: Viewed by Me: Radiology Read, CT Scan. Discussed w/RAD: Radiology Read, CT Scan. Initial ED EKG: AFLUTTER Departure Departure Disposition: STILL A PATIENT Condition: Stable Clinical Impression Primary Impression: UTI (urinary tract infection) Secondary Impressions: Weakness Referrals: ORTIZ MENDOZA MD (PCP/Family) Departure Forms: Customer Survey General Discharge Information Comments pt given iv fluids immediately upon arrival. Admission Note Spoke With: CLARICE MCKNIGHT MD Documentation of Exam: Documentation of any treatments & extenuating circumstances including Concerns Regarding Discharge (functional status, medication knowledge or non-compliance, living conditions, etc.) that warrant an admission rather than observation: pt with uti, with worsening weakness and increased falls. This is a failure of outpatient antibiotics. She meritis admission for iv antibiotics, iv fluids, electrolyte management as well as PT consult. Critical Care Note Critical Care Note Critical Care Time: 30-74 min
--- NOTE | 2017-01-29 20:00 | NUR ---
PT BIBA FROM HOME C/O WEAKNESS/DIARRHEA. PER MEDIC PT WAS AT HOME ABOUT 1HR AGO? WHEN PT WAS AMBULATING WITH WALKER IN TO HER BEDROOM WHEN SHE TURNED THE CORNER AND LOST HER BALANCE AND FELL. PT FELL TO HER KNEES AND PTS SON LOWERED HER TO THE GROUND. PT ARRIVED A&OX3, HARD OF HEARING, AND A 1X1 SKIN TEAR TO THE TOP OF THE RIGHT HAND. PT ARRIVED IN AFIB WITH HR AROUND 120'S (HX OF AFIB), PT HAS RECENT UTI, CURRENTLY ON CIPRO WITH DIARRHEA, HAS HX OF MULTIPLE FALLS ESPECIALLY WITHIN THE LAST WEEK, PT HAS A BS OF 106, AND PT REMAINS INCONTINENT. DAUGHTER AT BEDSIDE, DR CULLEN IN FOR EVAL. PT MEDICATED WITH 500ML NS INFUSING BOLUS INTO LAC. PT CHANGED AND PLACED ON MONITOR.
--- NOTE | 2017-01-29 21:06 | NUR ---
IV ACCESS ESTABLISHED BY JENNY HERRERA, RAC #[id number], BLOOD CULTURES DRAWN AND SENT
[2017-01-29 21:12] LABS: ABSOLUTE BASOPHIL COUNT 0 /CUMM (0.0-0.2); ABSOLUTE EOSINOPHIL COUNT 0.1 /CUMM (0.0-0.7); ABSOLUTE GRANULOCYTE CT 4.9 /CUMM (1.4-6.5); ABSOLUTE LYMPH COUNT 0.8 /CUMM (1.2-3.4); ABSOLUTE MONOCYTE COUNT 0.9 /CUMM (0.10-0.60); BASOPHIL % 0 % (0.0-2.0); EOSINOPHIL % 1.7 % (0-5); GRANULOCYTE % 73.5 % (42.2-75.2); HEMATOCRIT 37.5 % (37-47); MEAN CORPUSCULAR HGB 28.9 PG (27.0-31.0); MEAN CORPUSCULAR HGB CONC 32.1 G/DL (33.0-37.0); MEAN CORPUSCULAR VOLUME 89.9 FL (81.0-99.0); MEAN PLATELET VOLUME 8.5 FL (7.4-10.4); PLATELET COUNT 200 /CUMM (130-400); RBC DISTRIBUTION WIDTH 15.1 % (11.5-14.5); RED BLOOD CELL CT 4.17 /CUMM (4.20-5.40); WHITE BLOOD CELL COUNT 6.7 /CUMM (4.8-10.8)
--- NOTE | 2017-01-29 21:16 | NUR ---
2ND SET OF BLOOD CULTURES OBTAINED AND SENT TO LAB
[2017-01-29 21:21] LABS: PT 14.7 SEC (9.4-12.5); PTT 30 SEC (25-37)
--- NOTE | 2017-01-29 21:23 | NUR ---
PT TO CT SCAN AND XRAY
--- NOTE | 2017-01-29 21:50 | CT SCAN REPORT ---
EXAMINATION: CT HEAD WITHOUT CONTRAST CT CERVICAL SPINE WITHOUT CONTRAST CLINICAL INFORMATION: Fall. Syncope. Patient on blood thinners. COMPARISON: Head CT dated 01/02/2013. TECHNIQUE: Contiguous axial imaging was performed from the skullbase to vertex without intravenous administration of contrast. Multidetector helical imaging was performed through the cervical spine. DLP: 895.24 mGy-cm. FINDINGS: HEAD: There is no evidence of acute intracranial hemorrhage or territorial infarction. No abnormal mass effect or midline shift is seen. Erickson to white matter differentiation is well preserved. No extra-axial fluid collections are identified. Moderate generalized volume loss is noted. There is no evidence of hydrocephalus. Mild small vessel ischemic changes are present in the cerebral white matter. The osseous structures and soft tissues are normal. The mastoid air cells and visualized portions of the paranasal sinuses are well aerated. CERVICAL SPINE: No acute fracture or dislocation is identified in the cervical spine. There is a mild degenerative anterior subluxation at C4-C5. Extensive multilevel facet arthropathy is noted, worse on the right side. There is moderate central canal stenosis at C3-C4. There is significant disc space narrowing with disc-osteophyte complexes at the C5-C6 and C6-C7 levels. There is severe central canal stenosis at C5-C6 with cord compression. There is moderate to severe central canal stenosis at C6-C7. There is a moderate leftward curvature of the cervical spine. The atlantoaxial articulation is normally maintained. The paraspinal soft tissues are normal. There are emphysematous changes noted in the lungs and mild interlobular septal thickening. A right-sided layering pleural effusion is partially visualized. IMPRESSION: 1. No acute intracranial pathology. Mild chronic white matter microangiopathy and moderate volume loss. 2. No evidence of acute cervical spine traumatic injury. Extensive cervical spondylosis and spinal curvature. Severe central canal stenosis at C5-C6 with moderate to severe central canal narrowing at C6-C7. Multilevel facet arthropathy, worse on the right side. 3. Small right-sided layering pleural effusion. Mild emphysematous changes. Interlobular septal thickening is nonspecific but can be seen in the setting of pulmonary vascular congestion. Clinically correlate.
--- NOTE | 2017-01-29 22:07 | NUR ---
LACTIC ACID DRAWN AND SENT TO LAB
--- NOTE | 2017-01-29 22:13 | NUR ---
PT TO XRAY VIA STRETCHER, XRAY UNABLE TO TALK PT BEFORE
--- NOTE | 2017-01-29 22:39 | NUR ---
PT MEDICATED WITH 1G ROCEPHIN IV PER EMAR IN 100ML NS.
--- NOTE | 2017-01-29 22:50 | RADIOLOGY REPORT ---
EXAMINATION: XR CHEST CLINICAL INFORMATION: Fall COMPARISON: Multiple priors, most recent chest radiograph dated 01/28/2017. TECHNIQUE: Portable frontal view of the chest was obtained. FINDINGS: Stable small right-sided pleural effusion. Bibasilar atelectasis versus infiltrates, unchanged. Diffuse increased interstitial markings. Stable cardiomediastinal silhouette. No acute osseous abnormality. IMPRESSION: Small right-sided pleural effusion, bibasilar atelectasis versus infiltrates, and prominent interstitial markings. No significant interval change since the prior examination.
--- NOTE | 2017-01-29 22:52 | NUR ---
Emergency Dept [facility] Admit Note: To be admitted to [facility] by DR MCKNIGHT with UTI/PYELONEPHRITIS as the diagnosis, to TELE location. Nursing Area Intelligence Technician and admitting notified 01/29/17 at 2235 PT WILL GO TO ROOM [id number]
--- NOTE | 2017-01-29 22:53 | RADIOLOGY REPORT ---
EXAMINATION: XR WRIST, RIGHT XR HIP, LEFT CLINICAL INFORMATION: Fall COMPARISON: Multiple priors, most recent CT abdomen/pelvis dated 08/01/2016. TECHNIQUE: AP, lateral, oblique, and scaphoid views of the right wrist were obtained. An AP view of the pelvis as well as AP and frog-leg lateral views of the left hip were obtained. FINDINGS: RIGHT WRIST: Diffuse osteopenia. No displaced fracture. Joint space narrowing and subchondral sclerosis at the 1st carpometacarpal joint. Mild degenerative changes at the triscaphe joint. No osseous erosion. No abnormal soft tissue calcification. LEFT HIP: No displaced fracture. No dislocation. Diffuse osteopenia. Subchondral sclerosis of the acetabulum. Small marginal osteophytes. Severe degenerative changes within the visualized lower lumbar spine. Degenerative changes at the bilateral sacroiliac joints as well as at the symphysis pubis. A single AP view of the right hip demonstrates small marginal osteophytes and acetabular subchondral sclerosis. IMPRESSION: Right Wrist: Osteopenia. No displaced fracture. Degenerative changes at the triscaphe and 1st carpometacarpal joints. Left Hip: Osteopenia. No displaced fracture. Mild bilateral hip osteoarthritis. Degenerative changes within the visualized lower lumbar spine, sacroiliac joints, and symphysis pubis.
--- NOTE | 2017-01-29 23:17 | NUR ---
REPORT GIVEN TO JENNY YU.
--- NOTE | 2017-01-29 23:23 | History & Physical ---
[facility] 01[facility] 2323: General Information and HPI MD Statement: I have seen and personally examined GABBY BASS and documented this H&P. The patient is a 87 year old F who presented with a patient stated chief complaint of [WEAKNESS]. Source of Information: patient, old records Exam Limitations: no limitations History of Present Illness: This is a 87 yo female with PMH of COPD, hypothyroidism, hyperlipidemia, seizure disorder, possible TIA, pulmonary emoblus, and frequent UTI. She came with CC of mechanical fall while using her walker and going to her bedroom. Did not hit her head but did fall on her knees. She states that she had mechanical difficulty while using walker and turning to reach her bedroom. Fall observed by son. No LOC, [place], dizziness, CP, SOB, palpitations, no nausea, vomiting. Had one episode of loose stool today without evidence of blood. Denies any pain, burning on urination. Pt has had recent frequest visits to ED: January 25 for CC foul smelling urine and UTI January 26 for diarrhea x4, weakness, INR >8 and elevated HR 122. January 28 she states that she had a hard time lifting her legs and January 29 she came back today for weakness and fall. Last admission was in January 12: She was sent in by Dr. Garland's office for a. fib with RVR. She came to ED s/p fall and was found to be in afib with RVR Allergies/Medications Allergies: Coded Allergies: clarithromycin (N/V PER PT DAUGHTER 01/25/17) nitrofurantoin (N/V 01/25/17) Home Med list Acetaminophen 325 MG CAPSULE 1 CAP PO PRN PAIN (Reported) Cefuroxime Axetil (Cefuroxime) 500 MG TABLET 1 TAB PO BID uti Diltiazem HCl (Cardizem Cd) 120 MG CAP.ER.24H 360 MG PO DAILY HEART HEALTH Diphenoxylate HCl/Atropine (Lomotil 2.5-0.025 MG Tablet) 2.5 MG-0.025 MG TABLET 1 TAB PO 4 TIMES/DAY PRN diarrhea fifteen...[id number] Furosemide 40 MG TABLET 1 TAB PO DAILY NEEDED PRN DIURETIC (Reported) Metoprolol Tartrate 25 MG TABLET 1 TAB PO BID HEART/BP (Reported) Metoprolol Tartrate 25 MG TABLET 12.5 MG PO BID HEART HEALTH Phenytoin (Dilantin) 100 MG CAPSULE 2 CAP PO BID SEIZURES (Reported) Simvastatin (Simvastatin*) 20 MG TABLET 1 TAB PO QPM PREVENTATIVE (Reported) Thyroid,Pork ([place] Thyroid) 240 MG TABLET 1 TAB PO DAILY THYROID (Reported) Warfarin Sodium (Coumadin) 2.5 MG TABLET 1 TAB PO 1700 BLOOD THINNER ( Reported) Past History Travel History Traveled to [place] past 21 day No Medical History Neurological: SEIZURE 2008 EENT: [place] Cardiovascular: AFIB, PUL EMB Respiratory: pulmonary embolism Gastrointestinal: NONE Hepatic: NONE Renal: UTI Musculoskeletal: osteoarthritis, LOWER EXTREMITY EDEMA L1 compression fracture Psychiatric: NONE Endocrine: hypothyroidism Blood Disorders: DVT Cancer(s): UTERINE CA 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 Needs Assist: bathing. Ambulation: after fall patient has been largely non ambulatory. IADLs Independent: medication admin. Needs Assist: housework, food prep, transportation. Unknown: shopping, finances, telephone. Review of Systems Review of Systems Constitutional: Reports: no symptoms. EENTM: Reports: see HPI. Cardiovascular: Reports: see HPI. Respiratory: Reports: see HPI. GI: Reports: see HPI. Genitourinary: Reports: see HPI. Musculoskeletal: Reports: see HPI. Skin: Reports: see HPI. Neurological/Psychological: Reports: see HPI. Exam & Diagnostic Data Last 24 Hrs of Vital Signs/I&O Vital Signs Date Time Temp Pulse Resp B/P B/P Pulse O2 O2 Flow FiO2 Mean Ox Delivery Rate 01/30 0557 108/60 01/30 0000 95 Room Air 01/29 2334 97.8 104 18 98/60 96 Room Air 01/29 2009 95 Room Air 01/29 1959 97.3 123 18 112/64 98 Room Air Intake & Output 01/30 0800 01/30 0000 01/29 1600 Intake Total Output Total Balance Patient 81.647 kg Weight Weight Reported by Patient Measurement Method Physical Exam General Appearance Alert, Oriented X3, Cooperative, No Acute Distress Skin has some chronic venous stasis changes in le HEENT Atraumatic, PERRLA, EOMI, mucous membranes dry Neck No JVD Cardiovascular No Murmurs, irreg irregular with rvr Lungs Normal Air Movement Abdomen Soft, No Tenderness Neurological Normal Speech, hard of hearing Extremities Normal Pulses, 3+ pitting edema in LE. Last 24 Hrs of Labs/Kurt: Laboratory Tests 01/30/17 020: Troponin I < 0.01 01/30/17199: Lactic Acid 0.9 01/29/172203: Lactic Acid 1.0 01/29/172047: Anion Gap 8, Estimated GFR > 60, BUN/Creatinine Ratio 28.6 H, Glucose 83, Calcium 8.0 L, Total Bilirubin 0.7, AST 23, ALT 36, Alkaline Phosphatase 183 H , Troponin I < 0.01, Total Protein 6.3, Albumin 2.9 L, Globulin 3.4, Albumin/ Globulin Ratio 0.9 L, PT 14.7 H, INR 1.40 H, APTT 30, CBC w Diff NO MAN DIFF REQ, RBC 4.17 L, MCV 89.9, MCH 28.9, RDW 15.1 H, MPV 8.5, Gran % 73.5, Lymphocytes % 11.9 L, Monocytes % 12.9 H, Eosinophils % 1.7, Basophils % 0 L, Absolute Granulocytes 4.9, Absolute Lymphocytes 0.8 L, Absolute Monocytes 0.9 H, Absolute Eosinophils 0.1, Absolute Basophils 0, PUBS MCHC 32.1 L Microbiology 01/31 48 STOOL: Clostridium difficile Toxin A & B - COLB 01/29 2115 BLOOD: Blood Culture - RECD 01/30 2048 BLOOD: Blood Culture - RECD 01/29 1955 URINE ROUT: Urine Culture - COLB Assessment/Plan Assessment: This si a 87 yo female with PMH of afib, PE on coumadin, multiple UTI, seizure, hypothyroidism, who came to ED for CC weakness and mechanical fall. Admitted to tele for A.Fib with RVR and fall. ED work up: Vitals: tachycardic with heartrate 120s, bp 112/64, 98% ON RA WRIST AND HIP xray IMPRESSION: Right Wrist: Osteopenia. No displaced fracture. Degenerative changes at the triscaphe and 1st carpometacarpal joints. Left Hip: Osteopenia. No displaced fracture. Mild bilateral hip osteoarthritis. Degenerative changes within the visualized lower lumbar spine, sacroiliac joints, and symphysis pubis. Head and Cervical Spine CT IMPRESSION: 1. No acute intracranial pathology. Mild chronic white matter microangiopathy and moderate volume loss. 2. No evidence of acute cervical spine traumatic injury. Extensive cervical spondylosis and spinal curvature. Severe central canal stenosis at C5-C6 with moderate to severe central canal narrowing at C6-C7. Multilevel facet arthropathy, worse on the right side. 3. Small right-sided layering pleural effusion. Mild emphysematous changes.Interlobular septal thickening is nonspecific but can be seen in the settingof pulmonary vascular congestion. Clinically correlate. CXR IMPRESSION: Small right-sided pleural effusion, bibasilar atelectasis versus infiltrates,and prominent interstitial markings. No significant interval change since the prior examination. PLAN FALL: Pt states she had mechanical fall without LOC, trauma to head. See CT above. * check orthostats * r.knee xray * physical therapy * fall precautions * holding lasix * PT and OT consult A.FIB RVR: Pt has been seen previously for this issue by Dr. Garland. Last admission on January 12 was for a.fib rvr. Echo on 01/2017 showed EF >60%. INR was subtherapeutic so we gave second dose of coumadin for a total of 5mg. If persistently subtherapeutic consider heparin drip. She was given Vitamin K in ED for a supratherapeutic INR several days back. * TSH and T4 * admit to tele * vitals q shift * repeat ekg and trop * monitor inr * con't cardizem and home betablocker but titrate to HR * cardiology consult in am Hx UTI: She has hx of UTI that she was seen in ED multiple times. She was given cipro and cefuroxime and it seems like she has been treated for adequate duration. She also got IV ceftraixone in ED. Currently pt denies any recent symptoms of dysuria, abdominal pain etc. However, note that pt had prev UA growing citrobacter and enterobacter. * hold off any antibiotic * follow up urine culture Watery diarrhea: Recently on abx; concern for c. diff * c.diff toxin As Ranked By This Provider Problem List: 1. Atrial fibrillation 2. Weakness Core Measures/Miscellaneous Acute Coronary Syndrome ACS Diagnosis: No Cerebrovascular Accident CVA/TIA Diagnosis: No Congestive Heart Failure CHF Diagnosis: No Venous Thromboembolism VTE Risk Factors: Acute medical illness, Age > 40 No [facility] VTE prophylaxis d/t: No contraindications No VTE Pharm Prophylaxis d/t: No contraindications VTE Diagnosis: No VTE Type: NONE VTE Confirmed by (Test): NONE Severe Sepsis Severe Sepsis Present: No Septic Shock Septic Shock Present: No Miscellaneous Documentation Attending Case Discussed With: CLARICE MCKNIGHT MD Primary Care Physician: ORTIZ MENDOZA MD Patient sees these Specialists unknown Level of Patient Care: Telemetry UL JUWAN DINH,[facility] 01/30/17 0122: Resident Review Statement Resident Statement: examined this patient, discussed with editing internship, agreed with editing internship, reviewed EMR data (avail) Other Findings: 87-year-old female with past medical history significant for atrial fibrillation on Coumadin, urinary tract infections in the past, fourth ED visit in this week, seizure, pulmonary embolism, hypothyroidism, uterine cancer, came to emergency department with chief complaint of weakness after she dropped down on her knees when she was trying to go to her bedroom, she lives with her son and daughter. According to them she also had decreased by mouth intake and fatigue for the last few weeks. Patient also mentioned about having some loose bowel movements in the last 2-3 days. Vitals in emergency department patient afebrile, tachycardic with heart rate in 120s, no tachypnea, systolic blood pressure 112 and diastolic 64, oxygen saturation of 98% on room air. On examination patient was alert and oriented to time person and place. Not in any acute distress. After the ninth in the bed. S1 and S2 audible without any murmurs, clear lungs, grossly intact neurological examination, patient did have some discomfort when moving her left knee on passive range of motion. No JVD, 3 + bilateral lower extremity edema. EKG showed atrial fibrillation HR 126. On laboratory, no leukocytosis, no anemia, no significant electrolyte abnormality, INR 1.4, corrected calcium of 8.7, lactic acid 1 On imaging, CT showed no intracranial abnormality, no evidence of acute cervical spine traumatic injury, Severe central canal stenosis at C5-C6 with moderate to severe central canal narrowing at C6-C7. No wrist or hip fracture. Patient was admitted on telemetry floor for the management of following problems Fall -Most likely Mechanical falls vs arrythmias and into atrial fibrillation with RVR vs vasovagal vs neurological - Check Orthostatics - R Knee Xray as patient has limitation of passive range of motion without any tenderness - Physical Therapy - Fall Precautions. Atrial fibrillation with RVR Most likely ? ACS (Negative Troponins and No ST changes on EKG) vs CHF vs Hyperthyroidism. - Admit to Telemetry - Vitals Q shift - Repeat EKG - Check and Follow PT/INR, PTT - Adjust beta christopher and Cardizem home dose dose as per HR, Hold if less than 60. - Anitcoagulate with po coumadin - Monitor HR and Rhythm - Echo recently done showed ejection fraction of greater than 60% on 01/14/2017 -T4 and TSH to rule out Hyperthyroidism - Primary team should have a discussion with the family members about future anticoagulation since patient is a fall risk History of urinary tract infections Patient's UTIs have been managed by emergency department by different antibiotics. Patient was given Cipro and cefuroxime during her recent emergency department visits. Patient was also given IV ceftriaxone in emergency department. Patient denies any recent symptoms of dysuria and abdominal pain we will hold off on any antibiotics for now since there is no fever or leukocytosis. Will get a urine culture. History of recent watery diarrhea Since the patient wasn't recently on antibiotic FQ raises the possibility of having C. difficile. Will get C. difficile toxin Patient is on Coumadin for DVT prophylaxis Patient is on heart healthy diet Patient is on pain pathway Patient is full code CLARICE MCKNIGTH 01/30/17 0432: Attending MD Review Statement Attending Statement Attending MD Statement: examined this patient, discuss w/resident/PA/PATTERN TECHNICIAN, agreed w/resident/PA/PATTERN TECHNICIAN, reviewed EMR data (avail), reviewed images, amended to note Attending Assessment/Plan: CC: Fall PMH: HLD, paroxysmal A. fib, seizure, TIA, hypothyroidism, pulmonary embolism, recurrent UTI Patient states that she fell down on her way to bed. Patient was walking with walker, turned all of a sudden, walker got stuck, patient fell down almost on her knees, patient's son was standing behind her, he held her to make it a slow fall. Patient complained of knee pain upon arrival but symptomatically much better now. She complained of 3 watery loose motions this morning. She denies feeling dizziness, chest pain, shortness of breath, fever, chills, decreased appetite, nausea, vomiting, diaphoresis, almost passing out feeling. She did not lose her consciousness, no witnessed seizures. No obvious trauma. Off note patient was admitted on January 12 for A. fib with RVR and was discharged on January 18, 2017, on metoprolol 12.5 twice a day, Cardizem 360 mg extended- release daily. After discharge patient had been in ER 3 times for different reasons, on January 25 for UTI: Was treated with Cipro discharged home, patient came back on January 26 for diarrhea 4 episodes, center by Dr. Garland with a heart rate 120s and INR more than 8. At that time her metoprolol was increased to 25 mg twice a day outpatient. During that ER visit patient received 10 mg of subcutaneous vitamin K, I asked to hold her dose of warfarin and was discharged on cefuroxime. Patient came back again on 28 January for lethargy, patient was investigated with CBC, BMP, INR which was unremarkable she ambulated well with walker and was discharged home. Patient comes back today for fall. According to her she is not clear which antibiotic she is taking either Cipro or cefuroxime or both. Vitals: Afebrile, pulse 123, RR 18, blood pressure 112/68, saturating well on room air On exam: A O 3, cooperative, hard of hearing, no acute distress, neck supple, JVD normal, no lymphadenopathy, mucosa dry, no focal neurological deficit, +3 bilateral lower extremity edema with chronic stasis changes, CVS: S1-S2, irregular. RS: Decreased on right side. Abdomen: Soft, NT, ND, bowel sounds present. Labs: WBC 6.7, neutrophils 73%, hemoglobin 12.0, hematocrit 37.5, platelet 200, BMP unremarkable, anion gap 8, lactate 1.0, alkaline phosphatase 183, albumin 2.9, INR 1.5 X-ray chest, x-ray hip, CT head, x-ray chest, CT cervical spine: 1. Right Wrist: Osteopenia. No displaced fracture. Degenerative changes at the triscaphe and 1st carpometacarpal joints. 2. Left Hip: Osteopenia. No displaced fracture. Mild bilateral hip osteoarthritis. Degenerative changes within the visualized lower lumbar spine, sacroiliac joints, and symphysis pubis. 3. No acute intracranial pathology. Mild chronic white matter microangiopathy and moderate volume loss. 4. No evidence of acute cervical spine traumatic injury. Extensive cervical spondylosis and spinal curvature. Severe central canal stenosis at C5-C6 with moderate to severe central canal narrowing at C6-C7. Multilevel facet arthropathy, worse on the right side. 5. Small right-sided layering pleural effusion. Mild emphysematous changes. Interlobular septal thickening is nonspecific but can be seen in the setting of pulmonary vascular congestion. Clinically correlate. 6. Small right-sided pleural effusion, bibasilar atelectasis versus infiltrates, and prominent interstitial markings. No significant interval change since the prior examination. EKG: Afib A and P Patient was brought in ER after fall, which appears to be mechanical. Patient was walking with a walker at that time, had supported fall as son was witnessing it. No presyncope or syncope, no chest pain, no palpitation or diaphoresis. Patient appears dehydrated on examination. She was found to have in RVR in ER. She received 500 mL normal saline through EMS. Patient had 3 episodes of watery diarrhea today and 4 episodes of watery diarrhea 2 days back. She was treated with Lomotil at that time. Abdomen is soft, nontender, no guarding. Volume contraction and dehydration maybe adding up to the problem. Secondly patient was treated for her UTI since January 22, and has completed the course, symptomatically better. + A. fib with RVR + Fall + Left knee pain + Diarrhea + Recently treated UTI + Subtherapeutic INR - Admit to telemetry floor - Continuous telemetry monitoring - Continue home doses of diltiazem and metoprolol - If persistently heart rate more than 120, then try 10 mg of IV Cardizem followed by drip - Total 5 mg dose of warfarin, recheck INR in a.m., if still low consider starting on heparin for bridging - Hold Lasix - No IV fluids for now, if patient persistently tachycardic, or mildly hypotensive then bolused with 250 mL of normal saline before starting diltiazem. - Trend troponin and EKG - Orthostatic vitals in a.m. - X-ray left knee - Check C. difficile, obtain blood culture and urine culture - No antibiotics for now - Consult cardiology in a.m. - OT PT evaluation - Evaluate for short-term STIR placement.
[2017-01-29 23:34] VITALS: BP 98/60
--- NOTE | 2017-01-30 04:32 | Admission Certification ---
Admission Certification Certification Statement - As attending physician, I certify that at the time of - admission, based on clinical presentation, severity of - symptoms, need for further diagnostic testing and - therapeutic interventions, and risk of adverse outcomes - without in-hospital treatment, in my clinical assessment, - this patient requires an acute hospital stay for a minimum - of two nights or longer. I have also considered psychsocial - factors such as support system, advanced age, financial - issues, cognitive issues, and failed out-patient treatments, - past re-admission history, safety of patient, and lack of - compliance as applicable. Specific rationale supporting this admission is: A. fib with RVR, fall
[2017-01-30 05:57] VITALS: BP 108/60
--- NOTE | 2017-01-30 07:56 | PN- Housestaff ---
See Addendum MAEGAN DINH,ISMAIL 01/30/17 0749: Subjective Follow-up For: Mechanical fall Atrial fibrillation UTI Seizure Hypothyroidism Tele-Events Since Last Visit: Afib. Subjective: Afebrile, blood pressure running in the lower border of normal, average heart rate is 91, and saturating well on room air. Patient was sleeping this morning and she refused to be seen or examined. She also refused review of system. Patient will be seen later when she is more awake. Review of Systems Constitutional: Reports: see HPI. Objective Last 24 Hrs of Vital Signs/I&O Vital Signs Date Time Temp Pulse Resp B/P B/P Pulse O2 O2 Flow FiO2 Mean Ox Delivery Rate 01/30 818 97.3 77 20 102/60 94 Room Air 01/30 0557 108/60 01/30 0000 95 Room Air 01/29 2334 97.8 104 18 98/60 96 Room Air 01/29 2009 95 Room Air 01/29 1959 97.3 123 18 112/64 98 Room Air Intake & Output 01/30 1600 01/30 0800 01/30 0000 Intake Total Output Total Balance Patient 81.647 kg Weight Weight Reported by Patient Measurement Method Physical Exam General Appearance: Alert, refused to be examend HEENT: Atraumatic, PERRLA, EOMI, dry MM Current Medications: Current Medications Sig/Liudmila Start time Last Medication Dose Route Stop Time Status Admin Acetaminophen 650 MG Q6 PRN 01/30 0400 AC PO Atorvastatin Calcium 10 MG 1700 01/30 1700 AC PO Ceftriaxone Sodium 0 .STK-MED ONE 01/29 2233 DC .ROUTE Ceftriaxone Sodium 1,000 MG ONCE ONE 01/29 2215 DC 01/29 IV 01/29 Diltiazem HCl 360 MG DAILY 01/30 1000 AC PO Furosemide 40 MG DAILY NEEDED PRN 01/30 0045 DC PO Metoprolol Tartrate 25 MG BID 01/30 1000 AC PO Metoprolol Tartrate 25 MG BID 01/30 0100 DC PO Morphine Sulfate 1 MG Q6-PRN PRN 01/30 0400 AC IV Oxycodone HCl 5 MG Q6 PRN 01/30 0400 AC 01/30 PO 0551 Phenytoin 200 MG BID 01/30 1000 AC PO Sodium Chloride 500 ML BOLUS ONE 01/30 2000 DC IV 01/29 2059 Sodium Chloride 500 ML BOLUS ONE 01/30 2000 DC 01/29 IV 01/29 Warfarin Sodium 2.5 MG COUMADIN 1700 ONE 01/300 DC 01/30 PO 01/30 201 0228 Last 24 Hrs of Lab/Kurt Results Last 24 Hrs of Labs/Mics: Laboratory Tests 01/30/17 0630: Anion Gap 9, Estimated GFR > 60, BUN/Creatinine Ratio 28.6 H, PT 14.2 H, INR 1.36 H, Phenytoin 19.3 01/30/17 0200: Troponin I < 0.01 01/30/17 0200: Lactic Acid 0.9 01/29/174: Lactic Acid 1.0 01/29/172047: Anion Gap 8, Estimated GFR > 60, BUN/Creatinine Ratio 28.6 H, Glucose 83, Calcium 8.0 L, Total Bilirubin 0.7, AST 23, ALT 36, Alkaline Phosphatase 183 H , Troponin I < 0.01, Total Protein 6.3, Albumin 2.9 L, Globulin 3.4, Albumin/ Globulin Ratio 0.9 L, PT 14.7 H, INR 1.40 H, APTT 30, CBC w Diff NO MAN DIFF REQ, RBC 4.17 L, MCV 89.9, MCH 28.9, RDW 15.1 H, MPV 8.5, Gran % 73.5, Lymphocytes % 11.9 L, Monocytes % 12.9 H, Eosinophils % 1.7, Basophils % 0 L, Absolute Granulocytes 4.9, Absolute Lymphocytes 0.8 L, Absolute Monocytes 0.9 H, Absolute Eosinophils 0.1, Absolute Basophils 0, PUBS MCHC 32.1 L Microbiology 01/30 0839 URINE ROUT: Urine Culture - ORD 01/30 0048 STOOL: Clostridium difficile Toxin A & B - COLB 01/29 2115 BLOOD: Blood Culture - RECD 01/30 2048 BLOOD: Blood Culture - RECD 01/29 1955 URINE ROUT: Urine Culture - COLB Assessment/Plan Assessment: 87 yo female with PMH of COPD, recent A.fib, hypothyroidism, hyperlipidemia, seizure disorder, possible TIA, PE, and frequent UTI presented with CC of mechanical fall with left knee trauma. She denies LOC, head trauma, dizziness, CP, or SOB. #Mechanical fall with knees trauma Wrist and Hip Xray show osteopenia with no fractures. Head CT shows no acute intracranial pathology. * fall precaution * Left Knee x-ray #recent UTI Was diagnosed on [place] ED on january 25 and was sent home on cipro. On january 26 INR was found to be 10 on the ED and cipro was switched to cefuroxime which has fewer drug-drug interactions with coumadin. No urine culture was sent from both the ED visits. * We will send urine culture * We will send for urinalysis * Watch off antibiotic #Atrial fibrillation with rapid ventricular response Was recently diagnosed during last admission. Patient average heartrate since admission is 90/min. * Continue metoprolol 25 mg BID * Continue Diltiazem CD 120 mg daily * Dose warfarin when necessary. * We will discuss with cardiology the need for digoxin for better heart rate control. #Lower extremity edema During last admission DVT was ruled out by negative Lower extremity Doppler. * We will hold furosemide 40 mg daily, given low blood pressure. #History of pulmonary embolism (on warfarin) * Dose warfarin daily #History of hypothyroidism * Continue home dose of thyroid tab #Hyperlipidemia * Continue statin #History of seizure disorder * Continue phenytoin DVT PPX warfarin Full code Problem List: 1. Atrial fibrillation 2. Weakness Pain Ratin Pain Location: back Pain Goal: Remain pain free Pain Plan: See A&P Tomorrow's Labs & Rationales: INR LETA GAMBINO MD 01/30/171929: Attending MD Review Statement Attending Statement Attending Statement: examined this patient, discuss w/resident/PA/TAPPER HELPER, agreed w/resident/PA/TAPPER HELPER, reviewed EMR data (avail), discussed with nursing, discussed with case mgmt, amended to note Attending Assessment/Plan: The patient was seen and discussed with house staff. Agree with plan of care as outlined. PT recommending STR and will re-assess tomorrow.
[2017-01-30 08:13] LABS: PT 14.2 SEC (9.4-12.5)
[2017-01-30 08:18] VITALS: BP 102/60
[2017-01-30 15:54] VITALS: BP 100/60
--- NOTE | 2017-01-30 17:46 | Cons- Cardiology ---
General Information and HPI Consulting Request Date of Consult: 01/30/17 Requested By: LETA GAMBINO MD Reason for Consult: Atrial fibrillation with a rapid ventricular response. Source of Information: patient, old records Exam Limitations: clinical condition, poor historian, physical impairment History of Present Illness: Mrs. Cherelle Hansen is an 87-year-old female with a long-standing history of tobacco use, COPD, hypothyroidism, dyslipidemia, seizure disorder, possible TIA, pulmonary embolism for which she is on warfarin anticoagulation and remote brief bouts of atrial fibrillation who was recently hospitalized here (01/12-) after being discovered to be in atrial fibrillation with a rapid ventricular response and who returned to the ED yesterday with complaints of diarrhea, weakness, lethargy, and frequent falls while being treated for urinary tract infection with ciprofloxacin She was hospitalized here (03/06-03/08/2016) after presenting with shortness of breath and the discovery of multiple pulmonary emboli for which warfarin anticoagulation was initiated. She was first discovered to be having brief intermittent bouts of PAF vs SVT in September 2011, while experiencing significant diarrhea with mild hypokalemic. She was not placed on long-term anticoagulation at that time given a history of recurrent falls, one of which included a head strike. Her last echocardiogram was performed during her recent hospitalization on 01/14 and revealed: A normal-sized left ventricle with mild concentric left ventricular hypertrophy, no regional wall motion abnormalities, and normal systolic function with an estimated ejection fraction of greater than 60%, normal right ventricular size and function, mildly to moderately dilated atria, some age-related valvular changes, a small pericardial effusion of no hemodynamic consequence, and dilated inferior vena cava. The Doppler portion of the study revealed evidence of mild mitral and mild aortic, and moderate tricuspid regurgitation with an estimated PA systolic pressure estimated at 36 mmHg. Allergies/Medications Allergies: Coded Allergies: clarithromycin (N/V PER PT DAUGHTER 01/25/17) nitrofurantoin (N/V 01/25/17) Home Med List: Acetaminophen 325 MG CAPSULE 1 CAP PO PRN PAIN (Reported) Cefuroxime Axetil (Cefuroxime) 500 MG TABLET 1 TAB PO BID uti Diltiazem HCl (Cardizem Cd) 120 MG CAP.ER.24H 360 MG PO DAILY HEART HEALTH Diphenoxylate HCl/Atropine (Lomotil 2.5-0.025 MG Tablet) 2.5 MG-0.025 MG TABLET 1 TAB PO 4 TIMES/DAY PRN diarrhea fifteen...[id number] Furosemide 40 MG TABLET 1 TAB PO DAILY NEEDED PRN DIURETIC (Reported) Metoprolol Tartrate 25 MG TABLET 1 TAB PO BID HEART/BP (Reported) Metoprolol Tartrate 25 MG TABLET 12.5 MG PO BID HEART HEALTH Phenytoin (Dilantin) 100 MG CAPSULE 2 CAP PO BID SEIZURES (Reported) Simvastatin (Simvastatin*) 20 MG TABLET 1 TAB PO QPM PREVENTATIVE (Reported) Thyroid,Pork ([place] Thyroid) 240 MG TABLET 1 TAB PO DAILY THYROID (Reported) Warfarin Sodium (Coumadin) 2.5 MG TABLET 1 TAB PO 1700 BLOOD THINNER ( Reported) Review of Systems Review of Systems: A 14 point system review was obtained and was noncontributory, other than as above. 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 Home Services at Home: None, [facility] Primary Language: Indonesian Smoking Status: Former Smoker Functional Ability ADLs Independent: dressing, eating, toileting. Needs Assist: bathing. Ambulation: after fall patient has been largely non ambulatory. IADLs Independent: medication admin. Needs Assist: housework, food prep, transportation. Unknown: shopping, finances, telephone. Exam & Diagnostic Data Vital Signs and I&O Vital Signs Date Time Temp Pulse Resp B/P B/P Pulse O2 O2 Flow FiO2 Mean Ox Delivery Rate 01/30 1707 Room Air 01/30 1554 97.4 63 16 100/60 95 01/30 1323 134 100/62 01/30 0818 97.3 77 20 102/60 94 Room Air 01/30 0800 94 Room Air 01/30 0557 108/60 01/30 0000 95 Room Air 01/29 2334 97.8 104 18 98/60 96 Room Air 01/29 2009 95 Room Air 05/29 1959 97.3 123 18 112/64 98 Room Air Intake & Output 01/30 1600 01/30 0800 01/30 0000 01/29 1600 01/29 0800 01/29 0000 Intake Total 400 240 Output Total 275 Balance 125 240 Intake, Oral 400 240 Output, Urine 275 Patient 180 lb Weight Weight Reported by Patient Measurement Method Physical Exam: Well-developed, well-nourished elderly female in no acute distress with nasal oxygen in place. Vital signs: See above. HEENT: Normocephalic, atraumatic, EOMI, slightly dry mucous membranes. Neck: No JVD, no bruits. Lungs: Decreased breath sounds bilaterally. Heart: S1, S2 with grade 1-2/6 systolic murmur. PMI fifth ICS at MCL. No gallop or rub appreciated. Abdomen: Soft, nontender, positive bowel sounds. Extremities: 2+ bilateral lower extremity edema. Diagnostic Data EKG Results (01/30/2017); Atrial fibrillation and nondiagnostic T-wave abnormalities in diffuse leads. Slower rate when compared to previous tracing (01/29/2017). CXR Results (01/29/2017): Small right-sided pleural effusion, bibasilar atelectasis versus infiltrates, and prominent interstitial markings. No significant interval change since the prior examination. Assessment/Plan Assessment/Plan Mrs. Cherelle Hansen is an 87-year-old female with a long-standing history of tobacco use, COPD, hypothyroidism, dyslipidemia, seizure disorder, possible TIA, pulmonary embolism for which she is on warfarin anticoagulation and remote brief bouts of atrial fibrillation who was recently hospitalized here (01/12-) after being discovered to be in atrial fibrillation with a rapid ventricular response and who returned to the ED yesterday with complaints of diarrhea, weakness, lethargy, and frequent falls while being treated for urinary tract infection with ciprofloxacin. Recommendations: * Telemetry admission, follow-up troponins, follow-up electrocardiograms. * Strict inputs, outputs, and daily weights. * Hold diuretic for the short-term and gently hydrate. * Continue on metoprolol and diltiazem for control of ventricular response to her atrial fibrillation. * Start IV heparin and continue warfarin for full anticoagulation given her previous pulmonary embolisms and atrial fibrillation. * No need for repeat echocardiogram as one recently performed. * DVT prophylaxis being addressed by the anticoagulation for her pulmonary embolism and atrial fibrillation. Further recommendations will follow, Thank you. Consult Acknowledgment - Thank you for your consult request.
[2017-01-31 00:23] VITALS: BP 90/60
--- NOTE | 2017-01-31 00:57 | NUR ---
PT HAS NOT VOIDED DURING 3-11 SHIFT ON 01/30/17. PATIENT WAS BLADDER SCANNED AND SHOWED [address] LANGE. ENCOURGED PO INTAKE. PER DR LANGE, WILL ORDER FLUIDS. NO ORDER PLACED AT THIS TIME.
[2017-01-31 04:37] LABS: ABSOLUTE BASOPHIL COUNT 0 /CUMM (0.0-0.2); ABSOLUTE EOSINOPHIL COUNT 0.1 /CUMM (0.0-0.7); ABSOLUTE GRANULOCYTE CT 4.2 /CUMM (1.4-6.5); ABSOLUTE MONOCYTE COUNT 0.9 /CUMM (0.10-0.60); BASOPHIL % 0.1 % (0.0-2.0); EOSINOPHIL % 0.9 % (0-5); GRANULOCYTE % 67.7 % (42.2-75.2); HEMATOCRIT 36.6 % (37-47); MEAN CORPUSCULAR HGB 28.9 PG (27.0-31.0); MEAN CORPUSCULAR VOLUME 90.1 FL (81.0-99.0); MEAN PLATELET VOLUME 8.6 FL (7.4-10.4); PLATELET COUNT 177 /CUMM (130-400); RBC DISTRIBUTION WIDTH 15.2 % (11.5-14.5); RED BLOOD CELL CT 4.06 /CUMM (4.20-5.40); WHITE BLOOD CELL COUNT 6.2 /CUMM (4.8-10.8)
[2017-01-31 04:42] LABS: PT 17.4 SEC (9.4-12.5); PTT 59 SEC (25-37)
--- NOTE | 2017-01-31 07:44 | PN- Housestaff ---
[facility] 0744: Subjective Follow-up For: Mechanical fall Atrial fibrillation UTI Seizure Hypothyroidism Tele-Events Since Last Visit: Multiple episodes of 2.5 - 3 second pauses. One episode of bradycardia down to 13 8 Subjective: Afebrile, blood pressure running low on the 90s, saturating well on room air. No acute overnight events reported. Patient denies any current active complaints. Review of Systems Constitutional: Reports: no symptoms. Objective Last 24 Hrs of Vital Signs/I&O Vital Signs Date Time Temp Pulse Resp B/P B/P Pulse O2 O2 Flow FiO2 Mean Ox Delivery Rate 01/31 1104 Room Air 01/31 0959 112 100/60 01/31 0823 97.5 112 18 100/60 95 Room Air 01/31 0800 Room Air 01/31 0023 97.5 57 20 90/60 94 Room Air 01/30 2209 82 98/62 01/30 1707 Room Air 01/30 1600 Room Air 01/30 1554 97.4 63 16 100/60 95 Intake & Output 01/31 1600 01/31 0800 01/31 0000 Intake Total 100 490 Output Total 150 0 Balance -50 490 Intake, IV 10 Intake, Oral 100 480 Output, Urine 150 0 Patient 83.007 kg 83.007 kg Weight Weight Bhargavi Lift Measurement Method Physical Exam General Appearance: Alert, Oriented X3, Cooperative, No Acute Distress HEENT: Atraumatic, PERRLA, EOMI, Mucous Membr. moist/pink Cardiovascular: Regular Rate, Normal S1, Normal S2, No Murmurs Lungs: Clear to Auscultation, Normal Air Movement Neurological: Normal Speech Extremities: No Clubbing, No Cyanosis, No Edema, Normal Pulses Current Medications: Current Medications Sig/Liudmila Start time Last Medication Dose Route Stop Time Status Admin Acetaminophen 650 MG Q6 PRN 01/30 0400 AC 01/30 PO 2213 Atorvastatin Calcium 10 MG 1700 01/30 1700 AC 01/30 PO 1754 Diltiazem HCl 360 MG DAILY 01/30 1000 AC 01/31 PO 0926 Heparin Sodium 25,000 UNIT Q24H 01/30 1930 AC 01/30 (Porcine) IV 2209 Sodium Chloride 500 ML Metoprolol Tartrate 25 MG BID 01/30 1000 AC 01/30 PO 220 Morphine Sulfate 1 MG Q6-PRN PRN 01/30 0400 AC IV Nystatin 1 ANUPAM TID 01/30 1638 AC 01/31 TOP 0925 Oxycodone HCl 5 MG Q6 PRN 01/30 0400 AC 01/30 PO 1754 Phenytoin 200 MG BID 01/30 1000 AC 01/31 PO 0926 Sodium Chloride 500 ML BOLUS ONE 01/31 0115 DC 01/31 IV 01/31 0214 0120 Warfarin Sodium 2.5 MG COUMADIN 1700 ONE 01/30 1700 DC 01/30 PO 01/30 1701 1754 Last 24 Hrs of Lab/Kurt Results Last 24 Hrs of Labs/Mics: Laboratory Tests 01/31/17 1040: APTT > 120 *H 01/31/17 0410: PT Cancelled, INR Cancelled 01/31/17 0410: Anion Gap 8, Estimated GFR 53 L, BUN/Creatinine Ratio 26.0 H, PT 17.4 H, INR 1.67 H, APTT 59 H, CBC w Diff NO MAN DIFF REQ, RBC 4.06 L, MCV 90.1, MCH 28.9 , RDW 15.2 H, MPV 8.6, Gran % 67.7, Lymphocytes % 16.6 L, Monocytes % 14.7 H, Eosinophils % 0.9, Basophils % 0.1, Absolute Granulocytes 4.2, Absolute Lymphocytes 1.0 L, Absolute Monocytes 0.9 H, Absolute Eosinophils 0.1, Absolute Basophils 0, PUBS MCHC 32.0 L Assessment/Plan Assessment: 87 yo female with PMH of COPD, recent A.fib, hypothyroidism, hyperlipidemia, seizure disorder, possible TIA, PE, and frequent UTI presented with CC of mechanical fall with left knee trauma. She denies LOC, head trauma, dizziness, CP, or SOB. #Atrial fibrillation with rapid ventricular response Was recently diagnosed during last admission. Patient heartrate have been very variable. * Continue metoprolol 25 mg BID * Continue Diltiazem CD 120 mg daily * Patient will be continued and IV heparin until warfarin is therapeutic range * Cardiology recommended permanent pacemaker #Mechanical fall with knees trauma Wrist and Hip Xray show osteopenia with no fractures. Head CT shows no acute intracranial pathology. Patient refused the x-ray * fall precaution #recent UTI Was diagnosed on [facility] ED on january 25 and was sent home on cipro. On january 26 INR was found to be 10 on the ED and cipro was switched to cefuroxime which has fewer drug-drug interactions with coumadin. No urine culture was sent from both the ED visits. * Attending urine culture * Watch off antibiotic #Lower extremity edema During last admission DVT was ruled out by negative Lower extremity Doppler. * We will hold furosemide 40 mg daily, given low blood pressure. #History of pulmonary embolism (on warfarin) * Continuing IV heparin and Dose warfarin daily. * DC IV heparin when warfarin is in the therapeutic range #History of hypothyroidism * Continue home dose of thyroid tab #Hyperlipidemia * Continue statin #History of seizure disorder * Continue phenytoin Heart healthy DVT PPX IV heparin until warfarin is in the therapeutic range Full code Problem List: 1. Atrial fibrillation Pain Ratin Pain Location: NA Pain Goal: Remain pain free Pain Plan: See A&P Tomorrow's Labs & Rationales: See A&P IMMANUEL DINH,LETA 01/31/17 1222: Attending MD Review Statement Attending Statement Attending MD Statement: examined this patient, discuss w/resident/PA/CONCESSION ATTENDANT, agreed w/resident/PA/CONCESSION ATTENDANT, discussed with family, reviewed EMR data (avail), discussed with nursing, discussed with case mgmt, amended to note Attending Assessment/Plan: The patient was seen and discussed with house staff and son. Appreciate cardiology in put from Dr. Garland. Pauses noted last pm on monitor and the patient may have sick sinus syndrome. Considering possible pacemaker. Metoprolol held this morning.
[2017-01-31 08:23] VITALS: BP 100/60
--- NOTE | 2017-01-31 09:37 | NUR ---
0800 PT HAVING 2.5 SEC PAUSES. ISCHEIKH AWARE AND SAID PT HAS BEEN HAVING THEM OVER NIGHT. PT ASYMPTOMATIC. WILL CONTINUE TO MONITOR.
--- NOTE | 2017-01-31 11:11 | PN- Cardiology ---
Subjective Subjective: Complains of feeling weak, but no other specific complaints. Objective Vital Signs and I&Os Vital Signs Date Time Temp Pulse Resp B/P B/P Pulse O2 O2 Flow FiO2 Mean Ox Delivery Rate 01/31 0959 112 100/60 01/31 0823 97.5 112 18 100/60 95 Room Air 01/31 0800 Room Air 01/31 0023 97.5 57 20 90/60 94 Room Air 01/30 2209 82 98/62 01/30 1707 Room Air 01/30 1600 Room Air 01/30 1554 97.4 63 16 100/60 95 / 1323 134 100/62 Intake & Output 01/31 1600 01/31 0800 01/31 0000 01/30 1600 01/30 0800 01/30 0000 Intake Total 100 490 400 240 Output Total 150 0 275 Balance -50 490 125 240 Intake, IV 10 Intake, Oral 100 480 400 240 Output, Urine 150 0 275 Patient 183 lb 180 lb Weight Weight Bhargavi Lift Reported by Patient Measurement Method Physical Exam: well-developed, overweight elderly female in no acute distress with nasal oxygen in place. Vital signs: See above. Neck: No JVD, no bruits. Lungs: Decreased breath sounds. Heart: S1, S2 with soft (grade 1/6) systolic murmur. Abdomen: Soft, nontender, positive bowel sounds. Extremities: 2+ edema. Current Medications: Current Medications Sig/Liudmila Start time Last Medication Dose Route Stop Time Status Admin Acetaminophen 650 MG Q6 PRN 01/30 0400 AC 01/30 PO 2213 Atorvastatin Calcium 10 MG 1700 01/30 1700 AC 01/30 PO 1754 Diltiazem HCl 360 MG DAILY 01/30 1000 AC 01/31 PO 0926 Heparin Sodium 25,000 UNIT Q24H 01/30 1930 AC 01/30 (Porcine) IV 2209 Sodium Chloride 500 ML Metoprolol Tartrate 25 MG BID 01/30 1000 AC 01/30 PO 2209 Morphine Sulfate 1 MG Q6-PRN PRN 01/30 0400 AC IV Nystatin 1 ANUPAM TID 01/30 1638 AC 01/31 TOP 0925 Oxycodone HCl 5 MG Q6 PRN 01/30 0400 AC 01/30 PO 1754 Phenytoin 200 MG BID 01/30 1000 AC 01/31 PO 0926 Sodium Chloride 500 ML BOLUS ONE 01/31 0115 DC 01/31 IV 01/31 0214 0120 Warfarin Sodium 2.5 MG COUMADIN 1700 ONE 01/30 1700 DC 01/30 PO 01/30 1701 1754 Results Last 48 Hrs of Labs/Mics: Laboratory Tests 01/31/17 1040: APTT Pending 01/31/17 0410: PT Cancelled, INR Cancelled 01/31/17 0410: Anion Gap 8, Estimated GFR 53 L, BUN/Creatinine Ratio 26.0 H, PT 17.4 H, INR 1.67 H, APTT 59 H, CBC w Diff NO MAN DIFF REQ, RBC 4.06 L, MCV 90.1, MCH 28.9 , RDW 15.2 H, MPV 8.6, Gran % 67.7, Lymphocytes % 16.6 L, Monocytes % 14.7 H, Eosinophils % 0.9, Basophils % 0.1, Absolute Granulocytes 4.2, Absolute Lymphocytes 1.0 L, Absolute Monocytes 0.9 H, Absolute Eosinophils 0.1, Absolute Basophils 0, PUBS MCHC 32.0 L 01/30/17 1130: Urinalysis LIGHT H, Urine Color IVANA, Urine Clarity HAZY H, Urine pH 6.0, Ur Specific [place] 1.020, Urine Protein 30 H, Urine Ketones NEG, Urine Nitrite NEG, Urine Bilirubin NEG, Urine Urobilinogen 0.2, Ur Leukocyte Esterase MOD H, Ur Microscopic SEDIMENT EXAMINED, Ur Epithelial Cells MOD H, Urine Bacteria MOD H, Hyaline Casts 10-15 H, Micro UA Comment [place] H, Urine Hemoglobin TRACE-LYSED, Urine Glucose NEG 01/30/17 0630: Anion Gap 9, Estimated GFR > 60, BUN/Creatinine Ratio 28.6 H, PT 14.2 H, INR 1.36 H, Phenytoin 19.3 01/30/17 0200: Troponin I < 0.01 01/30/17 0200: Lactic Acid 0.9 01/29/17 2204: Lactic Acid 1.0 01/29/172047: Anion Gap 8, Estimated GFR > 60, BUN/Creatinine Ratio 28.6 H, Glucose 83, Calcium 8.0 L, Total Bilirubin 0.7, AST 23, ALT 36, Alkaline Phosphatase 183 H , Troponin I < 0.01, Total Protein 6.3, Albumin 2.9 L, Globulin 3.4, Albumin/ Globulin Ratio 0.9 L, PT 14.7 H, INR 1.40 H, APTT 30, CBC w Diff NO MAN DIFF REQ, RBC 4.17 L, MCV 89.9, MCH 28.9, RDW 15.1 H, MPV 8.5, Gran % 73.5, Lymphocytes % 11.9 L, Monocytes % 12.9 H, Eosinophils % 1.7, Basophils % 0 L, Absolute Granulocytes 4.9, Absolute Lymphocytes 0.8 L, Absolute Monocytes 0.9 H, Absolute Eosinophils 0.1, Absolute Basophils 0, PUBS MCHC 32.1 L Assessment/Plan Assessment/Plan [id number] w/ a hx of tobacco use, COPD, hypothyroidism, HLD, Sz disorder, possible TIA, pul embolism w/ warfarin anticoagulation and remote brief bouts of AF recently hospitalized here (01/12-01/18/2017) w/ AF and RVR and who returned to the ED on 01/29/2017 with complaints of diarrhea, weakness, lethargy, and frequent falls while being treated for urinary tract infection with ciprofloxacin. The ventricular response rates to her atrial fibrillation have been very variable suggesting underlying sick sinus syndrome and the plan will be to determine if she is an appropriate candidate for a permanent pacemaker so that the rapid ventricular response rates can be adequately treated without her becoming too bradycardic. I discussed the situation with Mrs. Hansen and her son this morning and further recommendations will follow. Continue telemetry? Yes
[2017-01-31 12:24] LABS: PTT > 120 SEC (25-37)
--- NOTE | 2017-01-31 13:20 | Discharge Summary ---
Visit Information Visit Dates Admission Date: 01/29/17 Discharge Date: 02/22/17 Hospital Course Course Attending Physician: LETA GAMBINO MD Primary Care Physician: KELLY DINH,ORTIZ Consulting Request: Consulting Specialty: Cardiology Consulting Physician: Bienvenido Garland MD Reason for Consult: a. FIB WITH rvr Hospital Course: 87-year-old female with past medical history significant for atrial fibrillation on Coumadin, urinary tract infections in the past, fourth ED visit in this week, seizure, pulmonary embolism, hypothyroidism, uterine cancer, came to emergency department with chief complaint of weakness after she dropped down on her knees when she was trying to go to her bedroom, she lives with her son and daughter. According to them she also had decreased by mouth intake and fatigue for the last few weeks. Patient also mentioned about having some loose bowel movements in the last 2-3 days of her admission. Vitals in emergency department patient afebrile, tachycardic with heart rate in 120s, no tachypnea, systolic blood pressure 112 and diastolic 64, oxygen saturation of 98% on room air. On examination patient was alert and oriented to time person and place. Not in any acute distress. After the ninth in the bed. S1 and S2 audible without any murmurs, clear lungs, grossly intact neurological examination, patient did have some discomfort when moving her left knee on passive range of motion. No JVD, 3 + bilateral lower extremity edema. EKG showed atrial fibrillation HR 126. On laboratory, no leukocytosis, no anemia, no significant electrolyte abnormality, INR 1.4, corrected calcium of 8.7, lactic acid 1 On imaging, CT showed no intracranial abnormality, no evidence of acute cervical spine traumatic injury, Severe central canal stenosis at C5-C6 with moderate to severe central canal narrowing at C6-C7. No wrist or hip fracture. Patient was admitted on telemetry floor for the management of following problems Atrial fibrillation with RVR Most likely ? ACS (Negative Troponins and No ST changes on EKG) vs CHF vs Hyperthyroidism. We checked her INR daily and was subtherapeutic given her history patient was started on heparin drip to achieve therapeutic INR by bridging. Patient was evaluated by electrical instrument maker and due to her ventricle response rates to her atrial fibrillation have been very variable suggesting underlying sick sinus syndrome and And recommended to put permanent pacemaker. Patient had a pacemaker placed on 06/12/17 after reversing the INR. Metoprolol dose was adjusted accordingly the heart rate(25 mg twice a day). Home dose of cardizem 390mg daily was restarted before the discharge. History of urinary tract infections Patient's UTIs have been managed by emergency department by different antibiotics. Patient was given Cipro and cefuroxime during her recent emergency department visits. Patient was also given IV ceftriaxone in emergency department. Patient denies any recent symptoms of dysuria and abdominal pain we will hold off on any antibiotics for now since there is no fever or leukocytosis. No growth was found on urine culture. She remained afebrile with normal WBC count. Intestinal obstruction Patient developed multiple episodes of vomiting during hospital stay and x-ray showed high-grade small bowel obstruction. Surgery was consulted. Patient was canceled nothing by mouth and NG was placed and also we started her on IV fluids at all her medications were changed to IV. Patient was managed conservatively and she did well and subsequently NG was taken out and slowly her diet was advanced. History of hypothyroidism-with episode of profound hypothyroidism in the hospital(myxedema); Thyroid medication was held on admission due to concerns of bradycardia, approximately for 2 weeks patient did not receive,that resulted in profound hypothyroidism. She became profoundly hypothermic, thyroid functions were checked that were consistent with severe hypothyroidism TSH was 31,000 with T4 of 0.15 . She was started on IV levothyroxine 50 MCG, transferred to the ICU. endocrinology consult with Dr. telles was obtained. Her clinical condition and thyroid functions improved during the course of stay in the ICU. Levothyroxine dose was increased to 62.5 MCG as per recommendations. She was transferred back to telemetry floor. Patient was also kept nothing by mouth initially due to the concerns of aspiration, she passed swallow evaluation and was started on pure and honey thick diet. Later and thyroid functions were checked ( TSH was 17,000 with T4 of 0.63)and she was switched to by mouth Synthroid 0.125 MCG after discussing with Dr. telles. Thyroid functions were again repeated 02/21/2017, Repeat TFT showed TSH 19.9 and free T4 0.73, Synthroid dose was adjusted to 137 mcg po daily. It was recommended on discharge to monitor/check TFT(TSH and free T4) once a week x 4 weeks, and forwarded the results to Dr. telles each week so that dose of Synthroid can be adjusted accordingly. Patient should follow up with Dr. telles as an outpatient within 1-2 weeks after discharge. falls Most likely Mechanical falls vs arrythmias and into atrial fibrillation with RVR vs vasovagal vs neurological No acute fracture was found on imaging study. She worked with physical therapy and recommendations are to discharge patient to short-term rehabilitation. Lower extremity edema Lasix was held during this admission due to hypotension, resumed on a lower dose by mouth 20 of Lasix daily. History of pulmonary embolism (on warfarin): Coumadin was dosed according to the INR on a daily basis. Before the discharge INR was elevated so Coumadin was held and was recommended to get the INR checked and dose Coumadin accordingly. History of hyper lipidemia: Home dose of statin was continued in the hospital History of seizure disorder Home dose of phenytoin was continued in the hospital. Pharmacological DVT prophylaxis Regular diet (regular thin mechanical soft diet) Patient is full code Allergies: Coded Allergies: clarithromycin (N/V PER PT DAUGHTER 01/25/17) nitrofurantoin (N/V 01/25/17) Significant Procedures: SERVICE DATE: 01/29/17 EXAM TYPE: CAT - CT CERV SPINE WO IV CONTRAST; CT HEAD WO IV CONTRAST EXAMINATION: CT HEAD WITHOUT CONTRAST CT CERVICAL SPINE WITHOUT CONTRAST CLINICAL INFORMATION: Fall. Syncope. Patient on blood thinners. COMPARISON: Head CT dated 01/02/2013. TECHNIQUE: Contiguous axial imaging was performed from the skullbase to vertex without intravenous administration of contrast. Multidetector helical imaging was performed through the cervical spine. DLP: 895.24 mGy-cm. FINDINGS: HEAD: There is no evidence of acute intracranial hemorrhage or territorial infarction. No abnormal mass effect or midline shift is seen. Erickson to white matter differentiation is well preserved. No extra-axial fluid collections are identified. Moderate generalized volume loss is noted. There is no evidence of hydrocephalus. Mild small vessel ischemic changes are present in the cerebral white matter. The osseous structures and soft tissues are normal. The mastoid air cells and visualized portions of the paranasal sinuses are well aerated. CERVICAL SPINE: No acute fracture or dislocation is identified in the cervical spine. There is a mild degenerative anterior subluxation at C4-C5. Extensive multilevel facet arthropathy is noted, worse on the right side. There is moderate central canal stenosis at C3-C4. There is significant disc space narrowing with disc-osteophyte complexes at the C5-C6 and C6-C7 levels. There is severe central canal stenosis at C5-C6 with cord compression. There is moderate to severe central canal stenosis at C6-C7. There is a moderate leftward curvature of the cervical spine. The atlantoaxial articulation is normally maintained. The paraspinal soft tissues are normal. There are emphysematous changes noted in the lungs and mild interlobular septal thickening. A right-sided layering pleural effusion is partially visualized. IMPRESSION: 1. No acute intracranial pathology. Mild chronic white matter microangiopathy and moderate volume loss. 2. No evidence of acute cervical spine traumatic injury. Extensive cervical spondylosis and spinal curvature. Severe central canal stenosis at C5-C6 with moderate to severe central canal narrowing at C6-C7. Multilevel facet arthropathy, worse on the right side. 3. Small right-sided layering pleural effusion. Mild emphysematous changes. Interlobular septal thickening is nonspecific but can be seen in the setting of pulmonary vascular congestion. Clinically correlate. Disposition Summary Disposition Principal Diagnosis: A. fib with RVR Additional Diagnosis: Fall Discharge Disposition: SNF Discharge Instructions General Discharge Information Code Status: Full Code Patient's Diet: regular thin mechanical soft diet Patient's Activity: As tolerated with assistance Follow-Up Instructions/Appts: Please follow-up with your primary care physician in one week of discharge You have been started on digoxin for your [facility], please have digoxin level drawn in 3 days and follow up with your electrical instrument maker in 1 week of discharge Please Take medications as prescribed Medications at Discharge Discharge Medications: Stop taking the following medications: Furosemide (Furosemide) 40 MG TABLET ORAL DAILY NEEDED as needed for DIURETIC Qty = 30 Thyroid,Pork ([place] Thyroid) 240 MG TABLET ORAL DAILY Qty = 30 Cefuroxime Axetil (Cefuroxime) 500 MG TABLET ORAL TWICE DAILY Qty = 14 Continue taking these medications: Simvastatin (Simvastatin*) 20 MG TABLET 1 Tablet ORAL Every night Comments: Last Taken: 01/17/17 Time: 5:30 PM Warfarin Sodium (Coumadin) 2.5 MG TABLET 1 Tablet ORAL 5 PM Comments: Last Taken: 01/18/17 Time: 2:00 PM Acetaminophen (Acetaminophen) 325 MG CAPSULE 1 Capsule ORAL as needed for PAIN Comments: Last Taken: NOT GIVEN IN HOSPITAL Time: Diltiazem HCl (Cardizem Cd) 120 MG CAP.ER.24H 360 Milligram ORAL DAILY Days = 30 Comments: Last Taken: 01/18/17 Time: 10:00 AM Phenytoin (Dilantin) 100 MG CAPSULE 2 Capsule ORAL TWICE DAILY Diphenoxylate HCl/Atropine (Lomotil 2.5-0.025 MG Tablet) 2.5 MG-0.025 MG TABLET 1 Tablet ORAL 4 TIMES A DAY as needed for diarrhea Qty = 15 Instructions: fifteen...[id number] Metoprolol Tartrate (Metoprolol Tartrate) 25 MG TABLET 1 Tablet ORAL TWICE DAILY Start taking the following new medications: Levothyroxine Sodium (Levothyroxine Sodium) 137 MCG TABLET 1 Tablet ORAL DAILY BEFORE BREAKFAST Qty = 60 No Refills Furosemide (Lasix) 20 MG TABLET 1 Tablet ORAL DAILY Qty = 30 No Refills Instructions: hold for SBP<90 Copies To: KELYL IDNH,ORTIZ; DEVIKA DINH,SHRUTI Attending MD Review Statement Documenting Attending: LETA GAMBINO MD
[2017-01-31 16:10] VITALS: BP 112/58
--- NOTE | 2017-01-31 18:06 | NUR ---
LATE ENTRY 1430 PT HASN'T VOIDED IN 8 HOURS. BLADDER SCAN=43. ENVIRONMENTAL COMPLIANCE TECHNICIAN ISMAIL AWARE AND 500ML BOLUS D5NS ORDERED. WILL CONTINUE TO MONITOR PT.
[2017-01-31 20:22] LABS: PTT > 120 SEC (25-37)
--- NOTE | 2017-01-31 21:01 | NUR ---
2014 PT YELLING FROM ROOM FOR HELP. UPON ASSESSMENT PT C/O NAUSEA WITH SMALL AMOUNT OF YELLOW VOMIT X1. VSS AT THIS TIME WITH NO OTHER COMPLAINTS. PRN ZOFRAN WAS ADMINSITERED WITH REPORTED RELIEF FROM PT. PT NOW RESTING COMFORTABLY IN BED, WILL CONTINUE TO MONITOR.
--- NOTE | 2017-01-31 22:10 | Event Note ---
Event Note Event Note: Around 10:00 PM pt has had multiple episodes of vomiting 4-5 times despite administration of zofran. Pt dry with decreased PO intake. Will give 500cc fluid and abdominal xray. 11:00 PM- X-ray shows high grade SBO Orderd cbc, bep, lactic, ngt, npo, surgical PA informed. spole with Dr. Pham and obtained recs Protonix ordered Went in to speak with patient but she proceeded to become very agitated and yelled for resident and I to leave room. Attempted to communicate urgency of findings but pt is particularly hard of hearding. Deafness in conjunction to agitation made communication difficult. Pt claimed to have no pain and refused physical exam. Called daughter and communicated findings. She stated she would come and speak with patient. 11:45 PM- Daugher came in. We were able to examine pt: no bowel sounds present, not tender to palpation, no rebound but abdomen is firm to palpation. Pt consented to NGT, abx, and work up. Pt continues to vomit. Labs with no alarm values. Will con't current managment.
--- NOTE | 2017-01-31 22:52 | RADIOLOGY REPORT ---
EXAMINATION: XR ABDOMEN CLINICAL INDICATION: Vomiting. COMPARISON: CT abdomen pelvis 08/01/2016 TECHNIQUE: AP view of the abdomen. FINDINGS: There is dilated small bowel loops and nondilated large bowel loops. Bowel pattern of a high-grade small bowel obstruction. Small volume of stool in the colon. No free air. No intra-abdominal calcification. There is blunting of right costophrenic angle due to pleural effusion. Multilevel degenerative spondylosis of the spine. Compression deformity of the L1 vertebrae with about 50% loss of height of the vertebrae. IMPRESSION: High-grade small bowel obstruction.
[2017-02-01 00:52] VITALS: BP 104/60
[2017-02-01 01:54] LABS: ABSOLUTE BASOPHIL COUNT 0 /CUMM (0.0-0.2); ABSOLUTE EOSINOPHIL COUNT 0 /CUMM (0.0-0.7); ABSOLUTE GRANULOCYTE CT 7.6 /CUMM (1.4-6.5); ABSOLUTE LYMPH COUNT 0.6 /CUMM (1.2-3.4); BASOPHIL % 0.1 % (0.0-2.0); EOSINOPHIL % 0.2 % (0-5); GRANULOCYTE % 82.3 % (42.2-75.2); HEMATOCRIT 37.5 % (37-47); MEAN CORPUSCULAR HGB 28.4 PG (27.0-31.0); MEAN CORPUSCULAR HGB CONC 32.2 G/DL (33.0-37.0); MEAN CORPUSCULAR VOLUME 88.2 FL (81.0-99.0); MEAN PLATELET VOLUME 8.5 FL (7.4-10.4); PLATELET COUNT 183 /CUMM (130-400); RBC DISTRIBUTION WIDTH 15.1 % (11.5-14.5); RED BLOOD CELL CT 4.26 /CUMM (4.20-5.40); WHITE BLOOD CELL COUNT 9.2 /CUMM (4.8-10.8)
[2017-02-01 01:59] LABS: PT 19.6 SEC (9.4-12.5)
[2017-02-01 03:58] LABS: ABSOLUTE BASOPHIL COUNT 0 /CUMM (0.0-0.2); ABSOLUTE EOSINOPHIL COUNT 0.1 /CUMM (0.0-0.7); ABSOLUTE GRANULOCYTE CT 8.2 /CUMM (1.4-6.5); ABSOLUTE LYMPH COUNT 0.7 /CUMM (1.2-3.4); BASOPHIL % 0.1 % (0.0-2.0); EOSINOPHIL % 0.6 % (0-5); GRANULOCYTE % 82.4 % (42.2-75.2); HEMATOCRIT 37.8 % (37-47); MEAN CORPUSCULAR HGB 28.7 PG (27.0-31.0); MEAN CORPUSCULAR HGB CONC 32.2 G/DL (33.0-37.0); MEAN CORPUSCULAR VOLUME 89.1 FL (81.0-99.0); MEAN PLATELET VOLUME 8.4 FL (7.4-10.4); PLATELET COUNT 190 /CUMM (130-400); RBC DISTRIBUTION WIDTH 15.2 % (11.5-14.5); RED BLOOD CELL CT 4.25 /CUMM (4.20-5.40); WHITE BLOOD CELL COUNT 9.9 /CUMM (4.8-10.8)
[2017-02-01 04:10] LABS: PT 20.2 SEC (9.4-12.5)
[2017-02-01 04:13] LABS: PTT 59 SEC (25-37)
--- NOTE | 2017-02-01 07:49 | PN- General Surgery ---
Surgical Brief Attending Note Brief Attending Note: FULL CONSULT TO FOLLOW. CASE DISCUSSED WITH RESIDENT LAST NIGHT. ILEUS VS SBO ( ADHESIVE DISEASE) BY XRAY. NGT AND HYDRATION INITIATED. PLAN FOR F/U XRAY TODAY.
[2017-02-01 08:07] VITALS: BP 104/62
--- NOTE | 2017-02-01 08:11 | PN- Housestaff ---
See Addendum Subjective Follow-up For: 1.Mechanical fall 2.Atrial fibrillation 3.Hypothyroidism 4.SBO Tele-Events Since Last Visit: Atrial fibrillation, heart rate 70 12/22/2015, with some PVCs Subjective: Afebrile, blood pressure running in the lower border of normal, saturating well on room air. Patient looks mildly distressed and agitated because of that in NG. She has a dry oral mucous membrane. She is also reporting chronic bilateral lower extremity pain. Patient denies nausea, abdominal pain, or chest pain. Review of Systems Constitutional: Reports: see HPI. Objective Last 24 Hrs of Vital Signs/I&O Vital Signs Date Time Temp Pulse Resp B/P B/P Pulse O2 O2 Flow FiO2 Mean Ox Delivery Rate 02/01 0807 97.7 125 20 104/62 95 Room Air 02/01 0800 Room Air 02/01 0112 85 100/60 / 0052 97.8 98 20 104/60 94 Room Air / 0000 Room Air 01/31 1610 96.5 77 20 112/58 01/31 1104 Room Air Intake & Output 02/01 1600 /01 0800 06/01 0000 Intake Total 760 1146.4 Output Total 1450 175 Balance -690 971.4 Intake, IV 760 676.4 Intake, Oral 470 Output, 100 100 Emesis Output, 1350 Gastric Drainage Output, Urine 75 Physical Exam General Appearance: Alert, Oriented X3, Mild Distress HEENT: Atraumatic, PERRLA, EOMI, Dry oral MM Cardiovascular: Normal S1, Normal S2, No Murmurs, irregular Lungs: Clear to Auscultation, Normal Air Movement Abdomen: Soft, No Tenderness Neurological: Normal Speech Extremities: No Clubbing, No Cyanosis, No Edema Assessment/Plan Assessment: 87 yo female with PMH of COPD, recent A.fib, hypothyroidism, hyperlipidemia, seizure disorder, possible TIA, PE, and frequent UTI presented with CC of mechanical fall with left knee trauma. #Intestinal obstruction Around 22:00 pt had multiple episodes of vomiting 4-5 times despite administration of zofran. Abdominal X-ray shows high grade SBO. Surgery recommending IV fluids, nasogastric tube, follow-up extremity this morning. Patient has a history of hysterectomy. * Continue NG tube decompression. * Continue IV fluid #Atrial fibrillation with rapid ventricular response Was recently diagnosed during last admission. Patient heartrate have been very variable. * Continue metoprolol 25 mg BID * Continue Diltiazem CD 120 mg daily * Patient will be continued and IV heparin until warfarin is therapeutic range * Cardiology recommended permanent pacemaker, we'll follow his recommendation. #Mechanical fall with knees trauma Wrist and Hip Xray show osteopenia with no fractures. Head CT shows no acute intracranial pathology. Patient refused the x-ray * fall precaution #recent UTI Was diagnosed on [place] [facility] on january 25 and was sent home on cipro. On january 26 INR was found to be 10 on the ED and cipro was switched to cefuroxime which has fewer drug-drug interactions with coumadin. No urine culture was sent from both the ED visits. * Attending urine culture * Watch off antibiotic #Lower extremity edema During last admission DVT was ruled out by negative Lower extremity Doppler. * We will hold furosemide 40 mg daily, given low blood pressure. #History of pulmonary embolism (on warfarin) * Continuing IV heparin and Dose warfarin daily. * DC IV heparin when warfarin is in the therapeutic range #History of hypothyroidism * Continue home dose of thyroid tab #Hyperlipidemia * Continue statin #History of seizure disorder * Continue phenytoin Heart healthy DVT PPX IV heparin until warfarin is in the therapeutic range Full code Problem List: 1. Atrial fibrillation Pain Ratin Pain Location: legs Pain Goal: Remain pain free Pain Plan: See A&P Tomorrow's Labs & Rationales: INR Consulting Request: Consulting Specialty: Cardiology Consulting Physician: Bienvenido Garland MD Reason for Consult: a. FIB WITH rvr
--- NOTE | 2017-02-01 09:31 | NUR ---
PHYSICAL THERAPY. Pt FOUND TO HAVE SBO, PENDING SURGICAL CONSULT. DISCUSSED W/ RN, Pt IN ALOT OF PAIN AND PT TREATMENT SHOULD BE DEFERRED TODAY. PT WILL F/U APPROPRIATE.
--- NOTE | 2017-02-01 10:00 | RADIOLOGY REPORT ---
EXAMINATION: XR ABDOMEN CLINICAL INDICATION: Vomiting and abdominal pain. Evaluate for small bowel obstruction. COMPARISON: KUB dated 01/31/2017. TECHNIQUE: AP portable view of the abdomen. FINDINGS: Evaluation is limited as the left flank is not fully included on the mid and lower pelvis is not included on this film. There is persistent abnormal distention of multiple small bowel loops in the mid abdomen, minimally improved compared to the prior exam. Relative paucity of bowel gas in the colon is seen and findings are suspicious for ongoing small bowel obstruction. Evaluation for free air is limited on supine view. Bilateral small pleural effusions and associated bibasilar atelectasis is noted. Chronic severe compression deformity of the L1 vertebral body is seen, unchanged. Diffuse osteopenia and multilevel degenerative changes are noted in the spine. IMPRESSION: Minimal decrease in the degree of small bowel distention compared to 01/31/2017. Findings are suspicious for ongoing small bowel obstruction.
--- NOTE | 2017-02-01 10:03 | RADIOLOGY REPORT ---
EXAMINATION: XR PORTABLE CHEST CLINICAL INFORMATION: NG tube in place for high-grade small bowel obstruction. Verify placement of NG tube. COMPARISON: Chest x-ray dated 01/29/2017. TECHNIQUE: Portable AP semierect view of the chest was obtained. FINDINGS: Enteric tube is seen coursing into the abdomen with tip projected over the gastric body. The cardiomediastinal silhouette is enlarged, unchanged. Bibasilar patchy areas of opacity are seen, suspicious for pneumonia with associated small pleural effusions. Central vascular congestion is seen without overt pulmonary edema. No pneumothorax. Diffuse osteopenia and mild convex right thoracic scoliosis. IMPRESSION: 1. No significant change in bibasilar opacities, suspicious for pneumonia versus atelectasis with associated small pleural effusions. 2. Central vascular congestion without pulmonary edema. 3. Enteric tube tip projected over the gastric body.
--- NOTE | 2017-02-01 13:02 | Cons- General Surgery ---
General Information and HPI Consulting Request Date of Consult: 02/01/17 Requested By: LETA GAMBINO MD Reason for Consult: sbo History of Present Illness: 87-year-old woman admitted with atrial fibrillation with rapid ventricular response. She developed nausea and vomiting during the admission. Abdominal x- ray showed multiple loops of dilated small bowel. Nasogastric tube was placed with decompression. Patient denied abdominal pain and continues to do so. Currently she sleepy and unarousable for an interview. Allergies/Medications Allergies: Coded Allergies: clarithromycin (N/V PER PT DAUGHTER 01/25/17) nitrofurantoin (N/V 01/25/17) Home Med List: Acetaminophen 325 MG CAPSULE 1 CAP PO PRN PAIN (Reported) Cefuroxime Axetil (Cefuroxime) 500 MG TABLET 1 TAB PO BID uti Diltiazem HCl (Cardizem Cd) 120 MG CAP.ER.24H 360 MG PO DAILY HEART HEALTH Diphenoxylate HCl/Atropine (Lomotil 2.5-0.025 MG Tablet) 2.5 MG-0.025 MG TABLET 1 TAB PO 4 TIMES/DAY PRN diarrhea fifteen...[id number] Furosemide 40 MG TABLET 1 TAB PO DAILY NEEDED PRN DIURETIC (Reported) Metoprolol Tartrate 25 MG TABLET 1 TAB PO BID HEART/BP (Reported) Metoprolol Tartrate 25 MG TABLET 12.5 MG PO BID HEART HEALTH Phenytoin (Dilantin) 100 MG CAPSULE 2 CAP PO BID SEIZURES (Reported) Simvastatin (Simvastatin*) 20 MG TABLET 1 TAB PO QPM PREVENTATIVE (Reported) Thyroid,Pork ([place] Thyroid) 240 MG TABLET 1 TAB PO DAILY THYROID (Reported) Warfarin Sodium (Coumadin) 2.5 MG TABLET 1 TAB PO 1700 BLOOD THINNER ( Reported) Current Medications: Current Medications Sig/Liudmila Start time Last Medication Dose Route Stop Time Status Admin Acetaminophen 1,000 MG TID 02/01 1600 AC IV Acetaminophen 1,000 MG ONCE ONE 02/01 0845 DC 02/01 N/A 1 UNIT IV 02/01 0859 0859 Acetaminophen 650 MG Q6 PRN 01/30 0400 DC 01/31 PO 2225 Atorvastatin Calcium 10 MG 1700 01/30 1700 AC 01/31 PO 1706 Ceftriaxone Sodium 1,000 MG AT BEDTIME 01/31 2345 DC IV Dextrose/Sodium 1,000 ML Q10H 02/01 1130 AC 02/01 Chloride IV 1145 Dextrose/Sodium 500 ML .Q24H 01/31 1600 DC 01/31 Chloride IV 02/03 0358 1705 Diltiazem HCl 125 MG Q24H 02/01 1145 AC Dextrose/Water 100 ML IV Diltiazem HCl 360 MG DAILY 01/30 1000 DC 01/31 PO 0926 Glycerin 2 SPRAY Q2P PRN 02/01 0745 AC 02/01 PO 0910 Haloperidol 0.5 MG ONCE ONE 02/01 0745 CAN IM 02/01 0746 Heparin Sodium 2,490 UNIT ONCE ONE 02/01 0530 DC 02/01 (Porcine) IV 02/01 0531 0635 Heparin Sodium 25,000 UNIT Q24H 01/30 1930 AC 01/31 (Porcine) IV 1843 Sodium Chloride 500 ML Lorazepam 0.5 MG ONCE ONE 02/01 0745 DC 02/01 IV 02/01 0746 0807 Magnesium Sulfate 1 GM Q2H 01/31 1600 DC 01/31 Dextrose/Water 100 ML IV 01/31 1959 2052 Metoprolol Tartrate 2.5 MG Q8 02/01 1400 AC IV Metoprolol Tartrate 25 MG BID 01/30 1000 DC 01/30 PO 2209 Metronidazole 500 MG IQ8 02/01 0000 DC N/A 1 UNIT IV Morphine Sulfate 1 MG Q6-PRN PRN 01/30 0400 DC IV Nystatin 1 ANUPAM TID 01/30 1638 AC 02/01 TOP 0902 Ondansetron HCl 4 MG Q6P PRN 01/31 2030 AC 01/31 IV 2021 Oxycodone HCl 5 MG Q6 PRN 01/30 0400 DC 01/30 PO 1754 Pantoprazole Sodium 40 MG DAILY 02/01 0030 AC 02/01 IV 0107 Patient Medication 1 ED .STK-MED ONE 01/31 1414 DC Teaching ED 01/31 1415 Phenytoin 200 MG BID 02/01 1145 AC Sodium Chloride 50 ML IV Phenytoin 200 MG BID 01/30 1000 DC 01/31 PO 2225 Sodium Chloride 1,000 ML Q13H 01/31 2315 DC 02/01 IV 0330 Sodium Chloride 500 ML BOLUS ONE 01/31 2215 DC 01/31 IV 01/31 2314 2222 Warfarin Sodium 2.5 MG COUMADIN 1700 ONE 01/31 1700 DC 01/31 PO 01/31 1701 1838 Past History Medical History Neurological: SEIZURE 2009 [place]: [place] Cardiovascular: AFIB, PUL EMB Respiratory: pulmonary embolism Gastrointestinal: NONE Hepatic: NONE Renal: UTI Musculoskeletal: osteoarthritis, LOWER EXTREMITY EDEMA L1 compression fracture Psychiatric: NONE Endocrine: hypothyroidism Blood Disorders: DVT Cancer(s): UTERINE CA skin 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 Home Services at Home: None, [facility] Primary Language: Martiniquais Smoking Status: Former Smoker Functional Ability ADLs Independent: dressing, eating, toileting. Needs Assist: bathing. Ambulation: after fall patient has been largely non ambulatory. IADLs Independent: medication admin. Needs Assist: housework, food prep, transportation. Unknown: shopping, finances, telephone. Review of Systems Review of Systems: Unobtainable Exam & Diagnostic Data Vital Signs and I&O Vital Signs Date Time Temp Pulse Resp B/P B/P Pulse O2 O2 Flow FiO2 Mean Ox Delivery Rate 02/01 1210 Room Air 02/01 0807 97.7 125 20 104/62 95 Room Air 02/01 0800 Room Air 02/01 0112 85 100/60 02/01 0052 97.8 98 20 104/60 94 Room Air 02/01 0000 Room Air 01/31 1610 96.5 77 20 112/58 Intake & Output 02/01 1600 02/01 0800 02/01 0000 01/31 1600 01/31 0800 01/31 0000 Intake Total 760 1146.4 409.1 100 490 Output Total 1450 175 150 0 Balance -690 971.4 409.1 -50 490 Intake, IV 760 676.4 169.1 10 Intake, Oral 470 240 100 480 Output, 100 100 Emesis Output, 1350 Gastric Drainage Output, Urine 75 150 0 Patient 183 lb 183 lb Weight Weight Bhargavi Lift Measurement Method Physical Exam: Gen.: He looks elderly somewhat debilitated. Sleeping HEENT: Slightly dry mucous membranes. Nasogastric tube through nares. No nasal discharge Neck: No adenopathy JVD or tenderness Abdomen: Soft nontender nondistended no mass no hernia extremities: No cyanosis clubbing or edema Last 24 Hours of Labs: Laboratory Tests 02/01 02/01 02/01 1145 0330 0330 Coagulation PT (9.4 - 12.5 SEC) 20.2 H INR (0.90 - 1.19) 1.94 H APTT (25 - 37 SEC) Pending 59 H Hematology CBC w Diff NO MAN DIFF REQ WBC (4.8 - 10.8 /CUMM) 9.9 RBC (4.20 - 5.40 /CUMM) 4.25 Hgb (12.0 - 16.0 G/DL) 12.2 Hct (37 - 47 %) 37.8 MCV (81.0 - 99.0 FL) 89.1 MCH (27.0 - 31.0 PG) 28.7 RDW (11.5 - 14.5 %) 15.2 H Plt Count (130 - 400 /CUMM) 190 MPV (7.4 - 10.4 FL) 8.4 Gran % (42.2 - 75.2 %) 82.4 H Lymphocytes % (20.5 - 51.1 %) 6.9 L Monocytes % (1.7 - 9.3 %) 10.0 H Eosinophils % (0 - 5 %) 0.6 Basophils % (0.0 - 2.0 %) 0.1 Absolute Granulocytes (1.4 - 6.5 /CUMM) 8.2 H Absolute Lymphocytes (1.2 - 3.4 /CUMM) 0.7 L Absolute Monocytes (0.10 - 0.60 /CUMM) 1.0 H Absolute Eosinophils (0.0 - 0.7 /CUMM) 0.1 Absolute Basophils (0.0 - 0.2 /CUMM) 0 PUBS MCHC (33.0 - 37.0 G/DL) 32.2 L 02/01 02/01 01/31 0120 0100 1900 Chemistry Sodium (137 - 145 mmol/L) 135 L Cancelled 139 Potassium (3.5 - 5.1 mmol/L) 4.3 Cancelled 3.6 Chloride (98 - 107 mmol/L) 104 Cancelled 109 H Carbon Dioxide (22 - 30 mmol/L) 24 Cancelled 20 L Anion Gap (5 - 16) 7 Cancelled 10 BUN (7 - 17 mg/dL) 32 H Cancelled 27 H Creatinine (0.5 - 1.0 mg/dL) 1.0 Cancelled 1.6 H Estimated GFR (>60 ml/min) 53 L 31 L BUN/Creatinine Ratio (7 - 25 %) 32.0 H Cancelled 16.9 Lactic Acid (0.7 - 2.1 mmol/L) 1.0 Magnesium (1.6 - 2.3 mg/dL) 2.2 Coagulation PT (9.4 - 12.5 SEC) 19.6 H INR (0.90 - 1.19) 1.88 H APTT (25 - 37 SEC) > 120 *H Hematology CBC w Diff NO MAN DIFF REQ WBC (4.8 - 10.8 /CUMM) 9.2 RBC (4.20 - 5.40 /CUMM) 4.26 Hgb (12.0 - 16.0 G/DL) 12.1 Hct (37 - 47 %) 37.5 MCV (81.0 - 99.0 FL) 88.2 MCH (27.0 - 31.0 PG) 28.4 RDW (11.5 - 14.5 %) 15.1 H Plt Count (130 - 400 /CUMM) 183 MPV (7.4 - 10.4 FL) 8.5 Gran % (42.2 - 75.2 %) 82.3 H Lymphocytes % (20.5 - 51.1 %) 6.7 L Monocytes % (1.7 - 9.3 %) 10.7 H Eosinophils % (0 - 5 %) 0.2 Basophils % (0.0 - 2.0 %) 0.1 Absolute Granulocytes (1.4 - 6.5 /CUMM) 7.6 H Absolute Lymphocytes (1.2 - 3.4 /CUMM) 0.6 L Absolute Monocytes (0.10 - 0.60 /CUMM) 1.0 H Absolute Eosinophils (0.0 - 0.7 /CUMM) 0 Absolute Basophils (0.0 - 0.2 /CUMM) 0 PUBS MCHC (33.0 - 37.0 G/DL) 32.2 L Imaging Results: Abdominal x-ray dated 01/31/2017 shows multiple loops of dilated small bowel in a cascading fashion. Abdominal x-ray dated 02/01/2017 shows nasogastric tube in stomach. There are minimally dilated small bowel loops throughout the abdomen. There is trace gas in the cecum Assessment/Plan Assessment/Plan 87-year-old woman with prior surgical history of abdominal hysterectomy with oophorectomy for uterine cancer. Differential diagnosis of her vomiting and x- ray findings are that of ileus due to her current medical illness. There are also exists the possibility of intestinal obstruction due to adhesive disease. Given the absence of abdominal pain and tenderness, recommend medical management of the above process. Follow-up x-ray today looks much improved (despite radiologist's interpretation of "no change"). There is far less distention of the small bowel and it appears that there may be progression of gas into her colon. For now continue nasogastric tube decompression until her bowel function resumes. Consider repeat x-ray tomorrow for follow-up in light of her inability to give much of a history. If her abdominal condition worsens recommend CT scan of the abdomen pelvis. For now I do not feel that a CAT scan would add any benefit or change her clinical management. My overall impression is that this process will resolve without surgery. Copies To: KELLY DINH,ORTIZ Consult Acknowledgment - Thank you for your consult request.
[2017-02-01 13:15] VITALS: BP 92/68
[2017-02-01 13:28] LABS: PTT > 120 SEC (25-37)
--- NOTE | 2017-02-01 14:00 | PN- Cardiology ---
Subjective Subjective: Events of yesterday and earlier today reviewed. An NG tube was placed for suspected small bowel obstruction with some slight improvement on her abdominal x-ray from today (02/01/2017). As she is nothing by mouth, she was placed on an IV diltiazem drip at 5 mg/hour and D5 normal saline at 100 ml/hour. IV metoprolol 2.5 mg every 8 hours has also been ordered as needed, but not given due to relative hypotension (92/68 mmHg). She remains in atrial fibrillation with a ventricular response rate that has been varying between 90-120 bpm. Hopefully, with IV hydration her blood pressure and pulse will improve. If her blood pressure improves would titrate up her IV diltiazem for better control of the ventricular response to her atrial fibrillation. Follow-up CXR in a.m. Objective Vital Signs and I&Os Vital Signs Date Time Temp Pulse Resp B/P B/P Pulse O2 O2 Flow FiO2 Mean Ox Delivery Rate 02/01 1316 112 92/68 02/01 1315 112 92/68 02/01 1210 Room Air 02/01 0807 97.7 125 20 104/62 95 Room Air 02/01 0800 Room Air 02/01 0112 85 100/60 02/01 0052 97.8 98 20 104/60 94 Room Air 02/01 0000 Room Air 01/31 1610 96.5 77 20 112/58 Intake & Output 02/01 1600 02/01 0800 02/01 0000 01/31 1600 01/31 0800 01/31 0000 Intake Total 760 1146.4 409.1 100 490 Output Total 1450 175 150 0 Balance -690 971.4 409.1 -50 490 Intake, IV 760 676.4 169.1 10 Intake, Oral 470 240 100 480 Output, 100 100 Emesis Output, 1350 Gastric Drainage Output, Urine 75 150 0 Patient 183 lb 183 lb Weight Weight Bhargavi Lift Measurement Method Physical Exam: Well-developed, overweight elderly female in no acute distress with nasal oxygen in place. Vital signs: See above. Lungs: The specimen is bilaterally. Heart: S1, S2 with grade 1/6 systolic murmur. Abdomen: Soft and nontender. Extremities: Positive edema. Current Medications: Current Medications Sig/Liudmila Start time Last Medication Dose Route Stop Time Status Admin Acetaminophen 1,000 MG TID 06/01 1600 AC IV Acetaminophen 1,000 MG ONCE ONE 02/01 0845 DC 02/01 N/A 1 UNIT IV 02/01 0859 0859 Acetaminophen 650 MG Q6 PRN 01/30 0400 DC 01/31 PO 2225 Atorvastatin Calcium 10 MG 1700 01/30 1700 AC 01/31 PO 1706 Ceftriaxone Sodium 1,000 MG AT BEDTIME 01/31 2345 DC IV Dextrose/Sodium 1,000 ML Q10H 02/01 1130 AC 02/01 Chloride IV 1145 Dextrose/Sodium 500 ML .Q24H 01/31 1600 DC 01/31 Chloride IV 02/03 0358 1705 Diltiazem HCl 125 MG Q24H 02/01 1145 AC 02/01 Dextrose/Water 100 ML IV 1306 Diltiazem HCl 360 MG DAILY 01/30 1000 DC 01/31 PO 0926 Glycerin 2 SPRAY Q2P PRN 02/01 0745 02/01 PO 0910 Haloperidol 0.5 MG ONCE ONE 02/01 0745 CAN IM 02/01 0746 Heparin Sodium 2,490 UNIT ONCE ONE 02/01 0530 DC 02/01 (Porcine) IV 02/01 0531 0635 Heparin Sodium 25,000 UNIT Q24H 01/30 1930 01/31 (Porcine) IV 1843 Sodium Chloride 500 ML Lorazepam 0.5 MG ONCE ONE 02/01 0745 DC 02/01 IV 02/01 0746 0807 Magnesium Sulfate 1 GM Q2H 01/31 1600 DC 01/31 Dextrose/Water 100 ML IV 01/31 1959 2052 Metoprolol Tartrate 2.5 MG Q8 02/01 1400 AC IV Metoprolol Tartrate 25 MG BID 01/30 1000 DC 01/30 PO 2209 Metronidazole 500 MG IQ8 02/01 0000 DC N/A 1 UNIT IV Morphine Sulfate 1 MG Q6-PRN PRN 01/30 0400 DC IV Nystatin 1 ANUPAM TID 01/30 1638 02/01 TOP 0902 Ondansetron HCl 4 MG Q6P PRN 01/31 2030 01/31 IV 2021 Oxycodone HCl 5 MG Q6 PRN 01/30 0400 DC 01/30 PO 1754 Pantoprazole Sodium 40 MG DAILY 02/01 0030 02/01 IV 0107 Patient Medication 1 ED .STK-MED ONE 01/31 1414 DC Teaching ED 01/31 1415 Phenytoin 200 MG BID 02/01 1145 AC Sodium Chloride 50 ML IV Phenytoin 200 MG BID 01/30 1000 DC 01/31 PO 2225 Sodium Chloride 1,000 ML Q13H 01/31 2315 DC 02/01 IV 0330 Sodium Chloride 500 ML BOLUS ONE 01/31 2215 DC 01/31 IV 01/31 2314 2222 Warfarin Sodium 2.5 MG COUMADIN 1700 ONE 01/31 1700 DC 01/31 PO 01/31 1701 1838 Results Last 48 Hrs of Labs/Mics: Laboratory Tests 02/01/17 1145: APTT > 120 *H 02/01/17 0330: PT 20.2 H, INR 1.94 H 02/01/17 0330: APTT 59 H, CBC w Diff NO MAN DIFF REQ, RBC 4.25, MCV 89.1, MCH 28.7, RDW 15.2 H, MPV 8.4, Gran % 82.4 H, Lymphocytes % 6.9 L, Monocytes % 10.0 H, Eosinophils % 0.6, Basophils % 0.1, Absolute Granulocytes 8.2 H, Absolute Lymphocytes 0.7 L, Absolute Monocytes 1.0 H, Absolute Eosinophils 0.1, Absolute Basophils 0, PUBS MCHC 32.2 L 02/01/17 0120: Anion Gap 7, Estimated GFR 53 L, BUN/Creatinine Ratio 32.0 H, Lactic Acid 1.0, Magnesium 2.2, PT 19.6 H, INR 1.88 H, CBC w Diff NO MAN DIFF REQ, RBC 4.26, MCV 88.2, MCH 28.4, RDW 15.1 H, MPV 8.5, Gran % 82.3 H, Lymphocytes % 6.7 L, Monocytes % 10.7 H, Eosinophils % 0.2, Basophils % 0.1, Absolute Granulocytes 7.6 H, Absolute Lymphocytes 0.6 L, Absolute Monocytes 1.0 H, Absolute Eosinophils 0, Absolute Basophils 0, PUBS MCHC 32.2 L 02/01/17 0100: Sodium Cancelled, Potassium Cancelled, Chloride Cancelled, Carbon Dioxide Cancelled, Anion Gap Cancelled, BUN Cancelled, Creatinine Cancelled, BUN/ Creatinine Ratio Cancelled 01/31/17 1900: Anion Gap 10, Estimated GFR 31 L, BUN/Creatinine Ratio 16.9, APTT > 120 *H 01/31/17 1040: APTT > 120 *H 01/31/17 0410: PT Cancelled, INR Cancelled 01/31/17 0410: Anion Gap 8, Estimated GFR 53 L, BUN/Creatinine Ratio 26.0 H, Magnesium 1.6, PT 17.4 H, INR 1.67 H, APTT 59 H, CBC w Diff NO MAN DIFF REQ, RBC 4.06 L, MCV 90.1, MCH 28.9, RDW 15.2 H, MPV 8.6, Gran % 67.7, Lymphocytes % 16.6 L, Monocytes % 14.7 H, Eosinophils % 0.9, Basophils % 0.1, Absolute Granulocytes 4.2, Absolute Lymphocytes 1.0 L, Absolute Monocytes 0.9 H, Absolute Eosinophils 0.1, Absolute Basophils 0, PUBS MCHC 32.0 L Recent Imaging Studies: CXR (02/01/2017): 1. No significant change in bibasilar opacities, suspicious for pneumonia versus atelectasis with associated small pleural effusions. 2. Central vascular congestion without pulmonary edema. 3. Enteric tube tip projected over the gastric body. Abdominal x-ray (02/01/2017): 1. Minimal decrease in the degree of small bowel distention compared to 2016. Findings are suspicious for ongoing small bowel obstruction. Assessment/Plan Assessment/Plan [id number] w/ a hx of tobacco use, COPD, hypothyroidism, HLD, Sz disorder, possible TIA, pul embolism w/ warfarin anticoagulation and remote brief bouts of AF recently hospitalized here (01/12-01/18/2017) w/ AF and RVR who returned to the ED 01/29/2017 with complaints of diarrhea, weakness, lethargy, and frequent falls while being treated for urinary tract infection with ciprofloxacin. The ventricular response rates to her atrial fibrillation have been very variable suggesting underlying sick sinus syndrome and the plan will be to determine if she is an appropriate candidate for a permanent pacemaker so that the rapid ventricular response rates can be adequately treated without her becoming too bradycardic. I discussed the situation with Mrs. Hansen and her son on 01/31/2017 and further recommendations will follow. Continue telemetry? Yes
[2017-02-01 15:30] VITALS: BP 98/68
[2017-02-01 21:27] LABS: PTT > 120 SEC (25-37)
[2017-02-01 23:34] VITALS: BP 100/62
[2017-02-02 04:31] LABS: ABSOLUTE BASOPHIL COUNT 0 /CUMM (0.0-0.2); ABSOLUTE EOSINOPHIL COUNT 0.1 /CUMM (0.0-0.7); ABSOLUTE GRANULOCYTE CT 4.6 /CUMM (1.4-6.5); ABSOLUTE LYMPH COUNT 0.6 /CUMM (1.2-3.4); ABSOLUTE MONOCYTE COUNT 0.8 /CUMM (0.10-0.60); BASOPHIL % 0.1 % (0.0-2.0); GRANULOCYTE % 75.9 % (42.2-75.2); HEMATOCRIT 35.5 % (37-47); MEAN CORPUSCULAR HGB CONC 32.5 G/DL (33.0-37.0); MEAN CORPUSCULAR VOLUME 89.2 FL (81.0-99.0); MEAN PLATELET VOLUME 8.5 FL (7.4-10.4); PLATELET COUNT 184 /CUMM (130-400); RBC DISTRIBUTION WIDTH 15.6 % (11.5-14.5); RED BLOOD CELL CT 3.98 /CUMM (4.20-5.40); WHITE BLOOD CELL COUNT 6.1 /CUMM (4.8-10.8)
[2017-02-02 04:36] LABS: PT 25.9 SEC (9.4-12.5)
[2017-02-02 04:38] LABS: PTT 37 SEC (25-37)
[2017-02-02 08:23] VITALS: BP 120/60
--- NOTE | 2017-02-02 08:37 | PN- Housestaff ---
See Addendum Subjective Follow-up For: 1.Mechanical fall 2.Atrial fibrillation 3.Hypothyroidism 4.SBO Tele-Events Since Last Visit: Atrial fibrillation, heart rate 61989, with no overnight event Subjective: Afebrile, hemodynamically stable, but tachycardic. Very minimal green fluid was drained from NG tube overnight. No bowel movements or flatus yet. Patient denies nausea, vomiting, or abdominal pain. No acute overnight events reported. Patient only complaint is dry oral mucous membranes. Review of Systems Constitutional: Reports: see HPI. Objective Last 24 Hrs of Vital Signs/I&O Vital Signs Date Time Temp Pulse Resp B/P B/P Pulse O2 O2 Flow FiO2 Mean Ox Delivery Rate 02/02 0823 97.4 68 20 120/60 92 Room Air 02/02 0644 112 112/70 02/01 2334 97.9 134 18 100/62 92 Room Air 02/01 2246 145 108/62 02/01 1530 97.5 137 16 98/68 94 Room Air 02/01 1316 112 92/68 02/01 1315 112 92/68 02/01 1210 Room Air Intake & Output 02/02 1600 02/02 0800 02/02 0000 Intake Total 790 470 Output Total 0 Balance 790 470 Intake, IV 790 470 Output, 0 Gastric Drainage Physical Exam General Appearance: Alert, Oriented X3, Cooperative, No Acute Distress HEENT: Atraumatic, PERRLA, EOMI, Very Dry MM Cardiovascular: Normal S1, Normal S2, No Murmurs, No murmur Lungs: Clear to Auscultation, Normal Air Movement Abdomen: Soft, No Tenderness Neurological: Normal Speech Extremities: No Edema Current Medications: Current Medications Sig/Liudmila Start time Last Medication Dose Route Stop Time Status Admin Acetaminophen 650 MG .STK-MED ONE 02/01 2156 DC PO 02/01 2157 Acetaminophen 1,000 MG TID 02/01 1600 AC 02/01 IV 2241 Atorvastatin Calcium 10 MG 1700 01/30 1700 AC 01/31 PO 1706 Dextrose/Sodium 1,000 ML Q10H 02/01 1130 AC 02/01 Chloride IV 2240 Diltiazem HCl 125 MG Q24H 02/01 1145 AC 02/01 Dextrose/Water 100 ML IV 1306 Diltiazem HCl 360 MG DAILY 01/30 1000 DC 01/31 PO 0926 Glycerin 2 SPRAY Q2P PRN 02/01 0745 AC 02/01 PO 1607 Heparin Sodium 4,980 UNIT ONCE ONE 02/02 05 DC 02/02 (Porcine) IV 02/02 05 0644 Heparin Sodium 25,000 UNIT Q24H 01/30 1930 AC 01/31 (Porcine) IV 1843 Sodium Chloride 500 ML Metoprolol Tartrate 2.5 MG Q8 02/01 1400 AC 02/02 IV 0644 Metoprolol Tartrate 25 MG BID 01/30 1000 DC 01/30 PO 2209 Nystatin 1 ANUPAM TID 01/30 1638 AC 02/01 TOP 2241 Ondansetron HCl 4 MG Q6P PRN 01/31 2030 AC 01/31 IV 2021 Pantoprazole Sodium 40 MG DAILY 02/01 0030 AC 02/01 IV 0107 Phenytoin 200 MG 0600,1800 02/02 0600 AC 02/02 Sodium Chloride 50 ML IV 0644 Phenytoin 200 MG BID 02/01 1145 DC 02/01 Sodium Chloride 50 ML IV 1811 Phenytoin 200 MG BID 01/30 1000 DC 01/31 PO 2225 Sodium Chloride 1,000 ML Q13H 01/31 2315 DC 02/01 IV 0330 Warfarin Sodium 2.5 MG COUMADIN 1700 ONE 02/01 1700 CAN PO 02/01 1701 Last 24 Hrs of Lab/Kurt Results Last 24 Hrs of Labs/Mics: Laboratory Tests 02/02/17 0410: PT 25.9 H, INR 2.49 H 02/02/17 0410: Anion Gap 6, Estimated GFR 59 L, BUN/Creatinine Ratio 27.8 H, APTT 37, CBC w Diff NO MAN DIFF REQ, RBC 3.98 L, MCV 89.2, MCH 29.0, RDW 15.6 H, MPV 8.5, Gran % 75.9 H, Lymphocytes % 9.6 L, Monocytes % 12.4 H, Eosinophils % 2.0, Basophils % 0.1, Absolute Granulocytes 4.6, Absolute Lymphocytes 0.6 L, Absolute Monocytes 0.8 H, Absolute Eosinophils 0.1, Absolute Basophils 0, PUBS MCHC 32.5 L 02/01/17 2015: APTT > 120 *H 02/01/17 1145: APTT > 120 *H Assessment/Plan Assessment: 87 yo female with PMH of COPD, recent A.fib, hypothyroidism, hyperlipidemia, seizure disorder, possible TIA, PE, and frequent UTI presented with CC of mechanical fall with left knee trauma. During that admission she was found to have Variable ventricular response rates to her atrial fibrillation, also during this admission she developed nausea and vomiting for which x-ray was done and suggested intestinal obstruction. Assessment and plan #Intestinal obstruction 2 days ago Patient had multiple episodes of vomiting 4-5 times despite administration of zofran. prior surgical history of abdominal hysterectomy with oophorectomy for uterine cancer. Abdominal X-ray shows high grade SBO. Asymptomatic with benign physical exam . Surgery recommending no surgical intervention, IV fluids, nasogastric tube decompression. NG tube did not drink fluids overnight but no bowel movements or flatus yet. * Continue NG tube decompression. * Continue IV fluid * We'll repeat x-ray * Keep patient nothing by mouth and switch although oral medication to IV. * Appreciate general surgery recommendations #Atrial fibrillation with rapid ventricular response Was recently diagnosed during last admission. Patient heartrate have been very variable which as been per Cardiology suggesting underlying sick sinus syndrome. Cardiology suggested that she is an appropriate candidate for a permanent pacemaker. * Continue metoprolol 25 mg BID * Continue Diltiazem CD 120 mg daily * Patient will be continued on IV heparin * We will keep warfarin hold as patient may go to surgery if SBO didn't improve with conservative management #Mechanical fall with knees trauma Wrist and Hip Xray show osteopenia with no fractures. Head CT shows no acute intracranial pathology. Patient refused knee x-ray. * fall precaution #recent UTI Was diagnosed on [facility] on january 25 and was sent home on cipro. On january 26 INR was found to be 10 on the ED and cipro was switched to cefuroxime which has fewer drug-drug interactions with coumadin. No urine culture was sent from both the ED visits. * F/u urine culture * Watch off antibiotic #Lower extremity edema During last admission DVT was ruled out by negative Lower extremity Doppler. * We will hold furosemide 40 mg daily, given low blood pressure. #History of pulmonary embolism (on warfarin) * Continuing IV heparin * Continue hold warfarin. #History of hypothyroidism * Continue home dose of thyroid tab #Hyperlipidemia * Continue statin #History of seizure disorder * Continue phenytoin Heart healthy DVT PPX IV heparin Full code Problem List: 1. Atrial fibrillation 2. SBO (small bowel obstruction) Pain Ratin Pain Location: [facility] Pain Goal: Remain pain free Pain Plan: See A&P Tomorrow's Labs & Rationales: See A&P Consulting Request: Consulting Specialty: Cardiology Consulting Physician: Bienvenido Garland MD Reason for Consult: a. FIB WITH rvr
--- NOTE | 2017-02-02 09:59 | PN- General Surgery ---
Subjective Subjective: no abdominal pain. admits to flatus. wants tube out. Objective Vital Signs and I&Os Vital Signs Date Time Temp Pulse Resp B/P B/P Pulse O2 O2 Flow FiO2 Mean Ox Delivery Rate 02/02 0823 97.4 68 20 120/60 92 Room Air 02/02 0644 112 112/70 02/01 2334 97.9 134 18 100/62 92 Room Air 02/01 2246 145 108/62 02/01 1530 97.5 137 16 98/68 94 Room Air 02/01 1316 112 92/68 02/01 1315 112 92/68 02/01 1210 Room Air Intake & Output 02/02 1600 / 0800 02/02 0000 02/01 1600 02/01 0800 02/01 0000 Intake Total 790 470 978.35 760 1146.4 Output Total 0 0 1450 175 Balance 790 470 978.35 -690 971.4 Intake, IV 790 470 978.35 760 676.4 Intake, Oral 470 Output, 100 100 Emesis Output, 0 0 1350 Gastric Drainage Output, Urine 75 Physical Exam: gen; nad, looks age. a/ox3 heent; anicteric, perrla. eomi abd; soft nt, nd Results Last 48 Hours of Labs: Laboratory Tests 02/020 0410 2014 Chemistry Sodium (137 - 145 mmol/L) 138 Potassium (3.5 - 5.1 mmol/L) 4.3 Chloride (98 - 107 mmol/L) 109 H Carbon Dioxide (22 - 30 mmol/L) 23 Anion Gap (5 - 16) 6 BUN (7 - 17 mg/dL) 25 H Creatinine (0.5 - 1.0 mg/dL) 0.9 Estimated GFR (>60 ml/min) 59 L BUN/Creatinine Ratio (7 - 25 %) 27.8 H Coagulation PT (9.4 - 12.5 SEC) 25.9 H INR (0.90 - 1.19) 2.49 H APTT (25 - 37 SEC) 37 > 120 *H Hematology CBC w Diff NO MAN DIFF REQ WBC (4.8 - 10.8 /CUMM) 6.1 RBC (4.20 - 5.40 /CUMM) 3.98 L Hgb (12.0 - 16.0 G/DL) 11.6 L Hct (37 - 47 %) 35.5 L MCV (81.0 - 99.0 FL) 89.2 MCH (27.0 - 31.0 PG) 29.0 RDW (11.5 - 14.5 %) 15.6 H Plt Count (130 - 400 /CUMM) 184 MPV (7.4 - 10.4 FL) 8.5 Gran % (42.2 - 75.2 %) 75.9 H Lymphocytes % (20.5 - 51.1 %) 9.6 L Monocytes % (1.7 - 9.3 %) 12.4 H Eosinophils % (0 - 5 %) 2.0 Basophils % (0.0 - 2.0 %) 0.1 Absolute Granulocytes (1.4 - 6.5 /CUMM) 4.6 Absolute Lymphocytes (1.2 - 3.4 /CUMM) 0.6 L Absolute Monocytes (0.10 - 0.60 /CUMM) 0.8 H Absolute Eosinophils (0.0 - 0.7 /CUMM) 0.1 Absolute Basophils (0.0 - 0.2 /CUMM) 0 PUBS MCHC (33.0 - 37.0 G/DL) 32.5 L 02/01 02/01 02/01 1145 0330 0330 Coagulation PT (9.4 - 12.5 SEC) 20.2 H INR (0.90 - 1.19) 1.94 H APTT (25 - 37 SEC) > 120 *H 59 H Hematology CBC w Diff NO MAN DIFF REQ WBC (4.8 - 10.8 /CUMM) 9.9 RBC (4.20 - 5.40 /CUMM) 4.25 Hgb (12.0 - 16.0 G/DL) 12.2 Hct (37 - 47 %) 37.8 MCV (81.0 - 99.0 FL) 89.1 MCH (27.0 - 31.0 PG) 28.7 RDW (11.5 - 14.5 %) 15.2 H Plt Count (130 - 400 /CUMM) 190 MPV (7.4 - 10.4 FL) 8.4 Gran % (42.2 - 75.2 %) 82.4 H Lymphocytes % (20.5 - 51.1 %) 6.9 L Monocytes % (1.7 - 9.3 %) 10.0 H Eosinophils % (0 - 5 %) 0.6 Basophils % (0.0 - 2.0 %) 0.1 Absolute Granulocytes (1.4 - 6.5 /CUMM) 8.2 H Absolute Lymphocytes (1.2 - 3.4 /CUMM) 0.7 L Absolute Monocytes (0.10 - 0.60 /CUMM) 1.0 H Absolute Eosinophils (0.0 - 0.7 /CUMM) 0.1 Absolute Basophils (0.0 - 0.2 /CUMM) 0 PUBS MCHC (33.0 - 37.0 G/DL) 32.2 L 02/01 02/01 01/31 0120 0100 1900 Chemistry Sodium (137 - 145 mmol/L) 135 L Cancelled 139 Potassium (3.5 - 5.1 mmol/L) 4.3 Cancelled 3.6 Chloride (98 - 107 mmol/L) 104 Cancelled 109 H Carbon Dioxide (22 - 30 mmol/L) 24 Cancelled 20 L Anion Gap (5 - 16) 7 Cancelled 10 BUN (7 - 17 mg/dL) 32 H Cancelled 27 H Creatinine (0.5 - 1.0 mg/dL) 1.0 Cancelled 1.6 H Estimated GFR (>60 ml/min) 53 L 31 L BUN/Creatinine Ratio (7 - 25 %) 32.0 H Cancelled 16.9 Lactic Acid (0.7 - 2.1 mmol/L) 1.0 Magnesium (1.6 - 2.3 mg/dL) 2.2 Coagulation PT (9.4 - 12.5 SEC) 19.6 H INR (0.90 - 1.19) 1.88 H APTT (25 - 37 SEC) > 120 *H Hematology CBC w Diff NO MAN DIFF REQ WBC (4.8 - 10.8 /CUMM) 9.2 RBC (4.20 - 5.40 /CUMM) 4.26 Hgb (12.0 - 16.0 G/DL) 12.1 Hct (37 - 47 %) 37.5 MCV (81.0 - 99.0 FL) 88.2 MCH (27.0 - 31.0 PG) 28.4 RDW (11.5 - 14.5 %) 15.1 H Plt Count (130 - 400 /CUMM) 183 MPV (7.4 - 10.4 FL) 8.5 Gran % (42.2 - 75.2 %) 82.3 H Lymphocytes % (20.5 - 51.1 %) 6.7 L Monocytes % (1.7 - 9.3 %) 10.7 H Eosinophils % (0 - 5 %) 0.2 Basophils % (0.0 - 2.0 %) 0.1 Absolute Granulocytes (1.4 - 6.5 /CUMM) 7.6 H Absolute Lymphocytes (1.2 - 3.4 /CUMM) 0.6 L Absolute Monocytes (0.10 - 0.60 /CUMM) 1.0 H Absolute Eosinophils (0.0 - 0.7 /CUMM) 0 Absolute Basophils (0.0 - 0.2 /CUMM) 0 PUBS MCHC (33.0 - 37.0 G/DL) 32.2 L 01/31 1040 Coagulation APTT (25 - 37 SEC) > 120 *H Recent Imaging Studies: abd xray from today has not been formally read. from my interpretation there is significant reduction in small bowel gas. there is gas in colon. Assessment/Plan Assessment/Plan resolved ileus/sbo. await formal read of xray. if improved, she can have ng removed and start clears.
--- NOTE | 2017-02-02 10:00 | NUR ---
PHYSICAL THERAPY. DISCUSSED W/ RN, Pt CURRENTLY DROWSY AND TACHY AT REST TO 114. PENDING REPEAT CHEST XRAY TO CONFIRM NG TUBE PLACEMENT. PT DEFERRED AT THIS TIME, WILL F/U APPROPRIATE.
--- NOTE | 2017-02-02 10:16 | RADIOLOGY REPORT ---
EXAMINATION: XR PORTABLE ABDOMEN CLINICAL INFORMATION: Follow up small bowel obstruction. COMPARISON: 02/01/2017 TECHNIQUE: AP view of the abdomen. FINDINGS: Today's exam is somewhat limited due to positioning and motion. An enteric tube is identified overlying the lower esophagus extending into the stomach, unchanged in position. Multiple air-filled loops of small bowel are again identified which are difficult to compare, however, are likely somewhat improved. Clinical correlation recommended. IMPRESSION: Question of some improvement in the previously suspected small bowel obstruction. Nasogastric tube remains properly positioned.
--- NOTE | 2017-02-02 12:02 | PN- Cardiology ---
Subjective Subjective: "I feel little better." Denies any chest discomfort, palpitations, shortness of breath, etc. Remains in atrial fibrillation with variable ventricular response rates. Unfortunately, as a result of her small bowel obstruction, her activity level has been minimal and we have not had an opportunity to assess the ventricular response rates to significant exertion. Objective Vital Signs and I&Os Vital Signs Date Time Temp Pulse Resp B/P B/P Pulse O2 O2 Flow FiO2 Mean Ox Delivery Rate 02/02 0823 97.4 68 20 120/60 92 Room Air 02/02 0644 112 112/70 02/01 2334 97.9 134 18 100/62 92 Room Air 02/01 2246 145 108/62 02/01 1530 97.5 137 16 98/68 94 Room Air 02/01 1316 112 92/68 02/01 1315 112 92/68 02/01 1210 Room Air Intake & Output 02/02 1600 02/02 0800 02/02 0000 02/01 1600 02/01 0800 02/01 0000 Intake Total 790 470 978.35 760 1146.4 Output Total 0 0 1450 175 Balance 790 470 978.35 -690 971.4 Intake, IV 790 470 978.35 760 676.4 Intake, Oral 470 Output, 100 100 Emesis Output, 0 0 1350 Gastric Drainage Output, Urine 75 Physical Exam: Well-developed, overweight elderly female in no acute distress with nasal oxygen in place. Vital signs: See above. Lungs: Decreased breath sounds bilaterally. Heart: S1, S2 (irregularly, irregular) grade 1/6 systolic murmur. Abdomen: Soft, nontender, positive bowel sounds. Extremities: Positive edema. Current Medications: Current Medications Sig/Liudmila Start time Last Medication Dose Route Stop Time Status Admin Acetaminophen 650 MG .STK-MED ONE 02/01 2156 DC PO 02/01 2157 Acetaminophen 1,000 MG TID 02/01 1600 AC 02/02 IV 0937 Atorvastatin Calcium 10 MG 1700 01/30 1700 AC 01/31 PO 1706 Dextrose/Sodium 1,000 ML Q10H 02/01 1130 AC 02/02 Chloride IV 0800 Diltiazem HCl 125 MG Q24H 02/01 1145 AC 02/01 Dextrose/Water 100 ML IV 1306 Glycerin 2 SPRAY Q2P PRN 02/01 0745 AC 02/02 PO 0950 Heparin Sodium 4,980 UNIT ONCE ONE 02/02 0530 DC 02/02 (Porcine) IV 02/02 05 0644 Heparin Sodium 25,000 UNIT Q24H 01/30 1930 AC 01/31 (Porcine) IV 1843 Sodium Chloride 500 ML Metoprolol Tartrate 2.5 MG Q8 02/01 1400 AC 02/02 IV 0644 Nystatin 1 ANUPAM TID 01/30 1638 AC 02/02 TOP 0937 Ondansetron HCl 4 MG Q6P PRN 01/31 2030 AC 01/31 IV 2021 Pantoprazole Sodium 40 MG DAILY 02/01 0030 AC 02/02 IV 0937 Phenytoin 200 MG 0600,1800 02/02 0600 AC 02/02 Sodium Chloride 50 ML IV 0644 Phenytoin 200 MG BID 02/01 1145 DC 02/01 Sodium Chloride 50 ML IV 1811 Warfarin Sodium 2.5 MG COUMADIN 1700 ONE 02/01 1700 CAN PO 02/01 1701 Results Last 48 Hrs of Labs/Mics: Laboratory Tests 02/02/17 1150: APTT Pending 02/02/17 0410: PT 25.9 H, INR 2.49 H 02/02/17 0410: Anion Gap 6, Estimated GFR 59 L, BUN/Creatinine Ratio 27.8 H, APTT 37, CBC w Diff NO MAN DIFF REQ, RBC 3.98 L, MCV 89.2, MCH 29.0, RDW 15.6 H, MPV 8.5, Gran % 75.9 H, Lymphocytes % 9.6 L, Monocytes % 12.4 H, Eosinophils % 2.0, Basophils % 0.1, Absolute Granulocytes 4.6, Absolute Lymphocytes 0.6 L, Absolute Monocytes 0.8 H, Absolute Eosinophils 0.1, Absolute Basophils 0, PUBS MCHC 32.5 L 02/01/17 2015: APTT > 120 *H 02/01/17 1145: APTT > 120 *H 02/01/17 0330: PT 20.2 H, INR 1.94 H 02/01/17 0330: APTT 59 H, CBC w Diff NO MAN DIFF REQ, RBC 4.25, MCV 89.1, MCH 28.7, RDW 15.2 H, MPV 8.4, Gran % 82.4 H, Lymphocytes % 6.9 L, Monocytes % 10.0 H, Eosinophils % 0.6, Basophils % 0.1, Absolute Granulocytes 8.2 H, Absolute Lymphocytes 0.7 L, Absolute Monocytes 1.0 H, Absolute Eosinophils 0.1, Absolute Basophils 0, PUBS MCHC 32.2 L 02/01/17 0120: Anion Gap 7, Estimated GFR 53 L, BUN/Creatinine Ratio 32.0 H, Lactic Acid 1.0, Magnesium 2.2, PT 19.6 H, INR 1.88 H, CBC w Diff NO MAN DIFF REQ, RBC 4.26, MCV 88.2, MCH 28.4, RDW 15.1 H, MPV 8.5, Gran % 82.3 H, Lymphocytes % 6.7 L, Monocytes % 10.7 H, Eosinophils % 0.2, Basophils % 0.1, Absolute Granulocytes 7.6 H, Absolute Lymphocytes 0.6 L, Absolute Monocytes 1.0 H, Absolute Eosinophils 0, Absolute Basophils 0, PUBS MCHC 32.2 L 02/01/17 0100: Sodium Cancelled, Potassium Cancelled, Chloride Cancelled, Carbon Dioxide Cancelled, Anion Gap Cancelled, BUN Cancelled, Creatinine Cancelled, BUN/ Creatinine Ratio Cancelled 01/31/17 1900: Anion Gap 10, Estimated GFR 31 L, BUN/Creatinine Ratio 16.9, APTT > 120 *H Recent Imaging Studies: Abdominal x-ray (02/02/2017): Question of some improvement in the previously suspected small bowel obstruction. Nasogastric tube remains properly positioned. Assessment/Plan Assessment/Plan [id number] w/ a hx of tobacco use, COPD, hypothyroidism, HLD, Sz disorder, possible TIA, pul embolism w/ warfarin anticoagulation and remote brief bouts of AF recently hospitalized here (01/12-01/18/2017) w/ AF and RVR and who returned to the ED on 01/29/2017 with complaints of diarrhea, weakness, lethargy, and frequent falls while being treated for urinary tract infection with ciprofloxacin. The ventricular response rates to her atrial fibrillation have been very variable suggesting underlying sick sinus syndrome and the plan will be to determine if she is an appropriate candidate for a permanent pacemaker so that the rapid ventricular response rates can be adequately treated without her becoming too bradycardic. I discussed the situation with Mrs. Hansen and her son on 01/31/2017 and further recommendations will follow. Unfortunately, Mrs. Hansen developed suspected small bowel obstruction and, as a result, has had little in the way of physical activity to allow us to determine if the ventricular response rates are excessive. Fortunately, today's abdominal chest x-ray suggests improvement. Continue telemetry? Yes
[2017-02-02 14:14] LABS: PTT 83 SEC (25-37)
[2017-02-02 16:01] VITALS: BP 116/64
--- NOTE | 2017-02-02 22:57 | NUR ---
NSG NOTE: 3.2SEC PAUSE ON TELEMETRY; PATIENT IS IN AFIB; BRADYCARDIC IN 40S; PATIENT SLEEPING EASILY AROUSABLE; DR. REE CAMPOS NOTIFIED; WILL MONITOR
[2017-02-03 00:58] VITALS: BP 118/64
[2017-02-03 02:13] LABS: PTT 71 SEC (25-37)
--- NOTE | 2017-02-03 06:49 | NUR ---
AT 0347 PT HAD A 3.4 SECOND PAUSE AND ADAM'D DOWN TO 53. PT ASYMPTOMATIC, MD TEAGUE AWARE. NO NEW ORDERS. WILL CONTINE TO MONITOR.
[2017-02-03 08:28] VITALS: BP 106/72
--- NOTE | 2017-02-03 08:43 | PN- Housestaff ---
See Addendum Subjective Follow-up For: A.fib Pauses on heart monitor knee pain Complaints: pain in her legs Tele-Events Since Last Visit: Atrial fibrillation with the rates of 60 to 80s Patient had 3 episodes of possible over the past 24 hours first pause at 3:42 AM for 4 seconds Second pause at 7:56 AM for 3. 60 sec At 835 am for 3.6 sec Subjective: Patient was visited and examined this morning. She is alert and oriented. Lying comfortably in bed not in acute distress. Patient denies any abdominal pain, nausea, vomiting. She had bowel movements this morning. Denies any chest pain, palpitation, lightheadedness, dizziness, fatigue and short of breath. Vital signs remain stable. Systolic blood pressure as low 100s. No incidental overnight Review of Systems Constitutional: Denies: see HPI, chills, diaphoresis, fever, malaise, weakness, unexplained weight loss. Cardiovascular: Reports: edema. Denies: chest pain, orthopena, palpitations, peripheral edema, syncope. Respiratory: Reports: no symptoms. Gastrointestinal: Reports: no symptoms. Genitourinary: Reports: no symptoms. Objective Last 24 Hrs of Vital Signs/I&O Vital Signs Date Time Temp Pulse Resp B/P B/P Pulse O2 O2 Flow FiO2 Mean Ox Delivery Rate 02/03 0828 97.5 77 18 106/72 94 Room Air / 0058 98.3 69 20 118/64 93 Room Air 06/02 2110 110/60 06/02 1601 98.6 95 20 116/64 93 Room Air /02 1418 117 112/60 Intake & Output 03 1600 /03 0800 / 0000 Intake Total 1007 1100 Output Total Balance 1007 1100 Intake, IV 1007 1100 Patient 195 lb Weight Weight Bhargavi Lift Measurement Method Physical Exam General Appearance: Alert, Oriented X3, Cooperative Cardiovascular: No Murmurs, s1 s2 , irregulary irregular Abdomen: Soft, No Tenderness Extremities: +2 b/l lower extremities Assessment/Plan Assessment: 87 yo female with PMH of COPD, recent A.fib, hypothyroidism, hyperlipidemia, seizure disorder, possible TIA, PE, and frequent UTI presented with CC of mechanical fall with left knee trauma. Patient bowel obstruction has resolved however, patient had multiple pauses on Tele monitor last night. Assessment and plan # Atrial fibrillation with multiple pauses on EKG. Possible causes are tachybradycardia syndrome or polypharmacy (patient was restarted on by mouth Cardizem continuous release 360 mg last night). [id number] >1 and needs A/C. Multiple sclerosis in the setting of A. fib. 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 * Continue anticoagulation to prevent drip * Rate control with Cardizem by mouth 360mg CD * Hold metoprolol for now #Intestinal obstruction * Resolved * Patient is on clear liquid diets we will advance the diet as tolerated #Lower extremity edema: Borderline blood pressure this a.m; systolic around low 100s; poor oral intake; mucosal membranes are dry. * Continue holding Lasix * Encourage increased by mouth intake * Continue IV hydration #History of pulmonary embolism (on warfarin) * Continue anticoagulation with heparin drip #History of hypothyroidism * Continue home dose of thyroid tab #Hyperlipidemia * Continue statin #History of seizure disorder * Continue phenytoin Heart healthy DVT PPX IV heparin Full code Problem List: 1. Dehydration 2. Weakness 3. Afib Pain Ratin Pain Location: knees Pain Goal: Pain 4 or less Pain Plan: tylenol Tomorrow's Labs & Rationales: bep Consulting Request: Consulting Specialty: Cardiology Consulting Physician: Bienvenido Garland MD Reason for Consult: a. FIB WITH rvr
--- NOTE | 2017-02-03 08:49 | NUR ---
PT HAD A 3 SEC PAUSE. PT ASYMPTOMAIC SITTING UP TALKING WITH DAUGHTER. NOELLE JOHNSON AWARE. STRIP IN CHART. WILL CONTINUE TO MONITOR PT
--- NOTE | 2017-02-03 12:15 | PN- Cardiology ---
Subjective Subjective: Patient reports some fatigue this morning. No chest pain, palpitations, or dyspnea. Objective Vital Signs and I&Os Vital Signs Date Time Temp Pulse Resp B/P B/P Pulse O2 O2 Flow FiO2 Mean Ox Delivery Rate 02/03 0908 77 106/72 06/03 0828 97.5 77 18 106/72 94 Room Air 06/ 0800 Room Air / 0058 98.3 69 20 118/64 93 Room Air / 2110 110/60 06/02 1601 98.6 95 20 116/64 93 Room Air 06/ 1418 117 112/60 Intake & Output 02/03 1600 / 0800 06/ 0000 06/ 1600 02/02 0800 02/02 0000 Intake Total 1007 1100 1000 790 470 Output Total 0 Balance 1007 1100 1000 790 470 Intake, IV 1007 1100 1000 790 470 Output, 0 Gastric Drainage Patient 195 lb Weight Weight Bhargavi Lift Measurement Method Physical Exam: General: no apparent distress. Eyes: No obvious scleral icterus. HEENT: No jugular venous distention or abnormal jugular venous pulsations. Cardiovascular: Normal intensity S1/S2. Irregular Respiratory: Lungs clear to auscultation bilaterally. Abdomen: no guarding or rebound tenderness. Musculoskeletal: No clubbing or cyanosis noted, trace edema Skin: Warm Current Medications: Current Medications Sig/Liudmila Start time Last Medication Dose Route Stop Time Status Admin Acetaminophen 650 MG Q6-PRN PRN 02/03 1015 AC PO Acetaminophen 1,000 MG ONCE ONE 02/03 0245 DC 02/03 N/A 1 UNIT IV 02/03 0259 0307 Acetaminophen 1,000 MG TID 02/01 1600 DC 02/03 IV 0909 Atorvastatin Calcium 10 MG 1700 01/30 1700 AC 02/02 PO 1712 Dextrose/Sodium 1,000 ML Q10H 02/01 1130 AC 02/03 Chloride IV 0307 Diclofenac Sodium 1 ANUPAM 4 TIMES/DAY 02/03 0414 DC 02/03 TOP 0908 Diltiazem HCl 360 MG DAILY 02/02 1415 AC 02/03 PO 0909 Diltiazem HCl 125 MG Q24H 02/01 1145 DC 02/01 Dextrose/Water 100 ML IV 1306 Glycerin 2 SPRAY Q2P PRN 02/01 0745 AC 02/02 PO 0950 Heparin Sodium 25,000 UNIT Q24H 05/30 1930 AC 01/31 (Porcine) IV 1843 Sodium Chloride 500 ML Ketorolac 30 MG ONCE ONE 02/03 0500 DC 02/03 Tromethamine IV 02/03 0501 0517 Metoprolol Tartrate 25 MG BID 02/02 2200 AC 02/02 PO 2110 Metoprolol Tartrate 12.5 MG ONCE ONE 02/02 1400 DC 02/02 PO 02/02 1401 1418 Metoprolol Tartrate 2.5 MG Q8 02/01 1400 DC 02/02 IV 0644 Nystatin 1 ANUPAM TID 01/30 1638 AC 02/03 TOP 0909 Ondansetron HCl 4 MG Q6P PRN 01/31 2030 AC 01/31 IV 2021 Pantoprazole Sodium 40 MG DAILY 02/01 0030 AC 02/03 IV 0909 Patient Medication 1 ED .STK-MED ONE 02/02 1428 ME Teaching ED 02/02 1429 Phenytoin 200 MG 0600,1800 02/02 0600 AC 02/03 Sodium Chloride 50 ML IV 0459 Results Last 48 Hrs of Labs/Mics: Laboratory Tests 02/03/17 0130: APTT 71 H 02/02/17 1240: APTT 83 H 02/02/17 0410: PT 25.9 H, INR 2.49 H 02/02/17 0410: Anion Gap 6, Estimated GFR 59 L, BUN/Creatinine Ratio 27.8 H, APTT 37, CBC w Diff NO MAN DIFF REQ, RBC 3.98 L, MCV 89.2, MCH 29.0, RDW 15.6 H, MPV 8.5, Gran % 75.9 H, Lymphocytes % 9.6 L, Monocytes % 12.4 H, Eosinophils % 2.0, Basophils % 0.1, Absolute Granulocytes 4.6, Absolute Lymphocytes 0.6 L, Absolute Monocytes 0.8 H, Absolute Eosinophils 0.1, Absolute Basophils 0, PUBS MCHC 32.5 L 02/01/17 2015: APTT > 120 *H Recent Imaging Studies: Telemetry the tracings were personally reviewed and show atrial fibrillation with overall controlled ventricular response rate and some pauses (longest 4.0 seconds). Assessment/Plan Assessment/Plan 1. Atrial fibrillation 2. Tachybradycardia syndrome 3. COPD 4. History of PE 5. Small bowel obstruction 6. Acute kidney injury, improved Hemodynamically stable. Does have some fatigue. Some pauses noted on telemetry. Would decrease Cardizem to 240 mg daily and continue the beta christopher. She may be a candidate for permanent pacemaker. Continue on heparin drip. Sumit Griffin MD [facility] Continue telemetry? Yes
--- NOTE | 2017-02-03 13:19 | NUR ---
Physical therapy: Patient approached for participation in PT x 2. Patient refused participation each time despite encouragement. Will continue to follow up with patient as appropriate. Thank you.
[2017-02-03 15:04] LABS: PTT 91 SEC (25-37)
[2017-02-03 15:55] VITALS: BP 102/62
[2017-02-03 22:14] LABS: PTT 51 SEC (25-37)
[2017-02-03 23:21] VITALS: BP 108/64
[2017-02-04 08:47] VITALS: BP 102/72
--- NOTE | 2017-02-04 09:02 | PN- Housestaff ---
Subjective Follow-up For: A.fib w/ frequent asymptomatic Pauses on Tele severe knee pain Complaints: pain scale (0-10), pain is 9 out of 10 B/L lower extremities Tele-Events Since Last Visit: A fib w/ frequent pauses on Tele heart rate 62-99 b/min Subjective: patient was visited and examined today. She is very anxious and moaning of sevre pain on her B/L lower extremirties. She had not have any BM for the past 6 day, while I was told by her daughter that patient had one BM last am. Otherwise patient does not offer any abdominal pain / N/V, CP, SOB, palpitation. VS are stable. NG was d/c yesterday. Review of Systems Constitutional: Reports: no symptoms. EENTM: Reports: see HPI. Cardiovascular: Reports: no symptoms. Respiratory: Reports: no symptoms. Gastrointestinal: Reports: distention. Denies: abdominal pain, bloating, constipation, nausea, changes in stool, vomiting. Genitourinary: Reports: no symptoms. Musculoskeletal: Reports: no symptoms. Skin: Reports: no symptoms. Objective Last 24 Hrs of Vital Signs/I&O Vital Signs Date Time Temp Pulse Resp B/P B/P Pulse O2 O2 Flow FiO2 Mean Ox Delivery Rate 02/04 1116 139 102/72 06/04 0847 97.5 139 20 102/72 93 Room Air / 0800 Room Air 06/ 2321 96.9 61 24 108/64 93 Room Air / 1555 96.9 76 18 102/62 93 Room Air Intake & Output 02/04 1600 / 0800 06/ 0000 Intake Total Output Total Balance Patient 197 lb Weight Weight Bhargavi Lift Measurement Method Physical Exam General Appearance: Alert, Oriented X3, Cooperative Skin: No Rashes HEENT: Mucous Membr. moist/pink Neck: Supple, No JVD Lymphatic: Axillary nl, Cervical nl Cardiovascular: Normal S1, Normal S2, No Murmurs Lungs: Clear to Auscultation Abdomen: Soft, No Tenderness Neurological: Normal Speech Extremities: Bilateral Lower extremity edema, B/L, R> L lower extremitis pain Current Medications: Current Medications Sig/Liudmila Start time Last Medication Dose Route Stop Time Status Admin Acetaminophen 1,000 MG Q6P PRN 02/04 1300 AC IV Acetaminophen 650 MG .STK-MED ONE 02/04 0359 DC PO 02/04 0400 Acetaminophen 650 MG Q6-PRN PRN 02/03 1015 DC 02/04 PO 0911 Atorvastatin Calcium 10 MG 1700 01/30 1700 AC 02/03 PO 1716 Dextrose/Sodium 1,000 ML Q10H 02/01 1130 AC 02/04 Chloride IV 1033 Diltiazem HCl 240 MG DAILY 02/04 1000 AC 02/04 PO 0911 Glycerin 2 SPRAY Q2P PRN 02/01 0745 AC 02/02 PO 0950 Heparin Sodium 25,000 UNIT .STK-MED ONE 02/03 1334 DC (Porcine) IV 02/03 1335 Heparin Sodium 25,000 UNIT Q24H 01/30 1930 AC 02/03 (Porcine) IV 1334 Sodium Chloride 500 ML Metoprolol Tartrate 25 MG BID 02/04 1000 AC PO Nystatin 1 ANUPAM TID 01/30 1638 DC 02/03 TOP 1519 Ondansetron HCl 4 MG Q6P PRN 01/31 2030 AC 01/31 IV 2021 Pantoprazole Sodium 40 MG DAILY 02/01 0030 AC 02/04 IV 0911 Phenytoin 200 MG 0600,1800 02/02 0600 AC 02/04 Sodium Chloride 50 ML IV 0553 Last 24 Hrs of Lab/Kurt Results Last 24 Hrs of Labs/Mics: Laboratory Tests 02/04/17 0635: Anion Gap 8, Estimated GFR 59 L, BUN/Creatinine Ratio 26.7 H, APTT 68 H 02/03/17 2150: APTT 51 H 02/03/17 1450: APTT 91 H Assessment/Plan Assessment: 87 yo female with PMH of COPD, recent A.fib, hypothyroidism, hyperlipidemia, seizure disorder, possible TIA, PE, and frequent UTI presented with CC of mechanical fall with left knee trauma. Patient bowel obstruction has resolved however, patient had multiple pauses on Tele monitor last night. Assessment and plan # Atrial fibrillation with multiple pauses on EKG. Possible causes are tachybradycardia syndrome or polypharmacy (patient was restarted on by mouth Cardizem continuous release 360 mg last night). [id number] >1 and needs A/C. Multiple sclerosis in the setting of A. fib. 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 * Continue anticoagulation to prevent drip * Rate control with Cardizem by mouth 240mg CD * continue metoprolol #Intestinal obstruction- has not have BM; abdomen is distended, No pain tenderness. Repeat Abd xray showed improvement of Bowel obstruction. * NPO for now #Lower extremity edema: Borderline blood pressure this a.m; systolic around low 100s; poor oral intake; mucosal membranes are dry. * Continue holding Lasix * Continue IV hydration #History of pulmonary embolism (on warfarin) * Continue anticoagulation with heparin drip #History of hypothyroidism * Continue home dose of thyroid tab #Hyperlipidemia * Continue statin #History of seizure disorder * Continue phenytoin Heart healthy DVT PPX IV heparin Full code Problem List: 1. Atrial fibrillation 2. SBO (small bowel obstruction) 3. Weakness 4. Afib 5. Tachy-lauren syndrome Pain Ratin Pain Location: n/a Pain Goal: Pain 4 or less Pain Plan: IV tylenol Q4PRN Tomorrow's Labs & Rationales: BEP tomorrow DVT/Prophylaxis: mechanical, pharmacological Consulting Request: Consulting Specialty: Cardiology Consulting Physician: Bienvenido Garland MD Reason for Consult: a. FIB WITH rvr
[2017-02-04 09:13] LABS: PTT 68 SEC (25-37)
--- NOTE | 2017-02-04 12:26 | RADIOLOGY REPORT ---
EXAMINATION: XR PORTABLE ABDOMEN CLINICAL INFORMATION: Abdominal pain and distention COMPARISON: February 02 study is limited due to underpenetration and portable technique., 2017 and studies dating back to August 01, 2016 TECHNIQUE: AP portable views of the abdomen, supine. FINDINGS: I do not definitely see nasogastric tube in place. There has been improvement in bowel distention since previous studies and stool and gas is now seen within colon. Bilateral pleural effusions and basilar atelectasis evident. Severe degenerative change of the lumbar spine is seen with compression fracture of L1. IMPRESSION: Improving bowel gas pattern.
--- NOTE | 2017-02-04 13:12 | PN- Cardiology ---
Subjective Subjective: Denies chest pain, dyspnea, or palpitations. Complains of pain in her legs. Objective Vital Signs and I&Os Vital Signs Date Time Temp Pulse Resp B/P B/P Pulse O2 O2 Flow FiO2 Mean Ox Delivery Rate 02/04 1116 139 102/72 06/04 0847 97.5 139 20 102/72 93 Room Air / 0800 Room Air 02/03 2321 96.9 61 24 108/64 93 Room Air 02/03 1555 96.9 76 18 102/62 93 Room Air Intake & Output 02/04 1600 / 0800 06/ 0000 02/03 1600 02/03 0800 02/03 0000 Intake Total 1123.6 1007 1100 Output Total 500 Balance 623.6 1007 1100 Intake, IV 973.6 1007 1100 Intake, Oral 150 Output, Urine 500 Patient 197 lb 195 lb Weight Weight Bhargavi Lift Bhargavi Lift Measurement Method Physical Exam: General: alert. Eyes: No obvious scleral icterus. HEENT: No jugular venous distention or abnormal jugular venous pulsations. Cardiovascular: Normal intensity S1/S2. Irregular Respiratory: Lungs clear to auscultation bilaterally. Abdomen: no guarding or rebound tenderness. Musculoskeletal: No clubbing or cyanosis noted, trace edema Skin: Warm Current Medications: Current Medications Sig/Liudmila Start time Last Medication Dose Route Stop Time Status Admin Acetaminophen 1,000 MG Q6P PRN 02/04 1300 AC IV Acetaminophen 650 MG .STK-MED ONE 02/04 0359 DC PO 02/04 0400 Acetaminophen 650 MG Q6-PRN PRN 02/03 1015 DC 02/04 PO 0911 Atorvastatin Calcium 10 MG 1700 01/30 1700 AC 02/03 PO 1716 Dextrose/Sodium 1,000 ML Q10H 02/01 1130 AC 02/04 Chloride IV 1033 Diltiazem HCl 240 MG DAILY / 1000 AC 02/04 PO 0911 Glycerin 2 SPRAY Q2P PRN 02/01 0745 AC 02/02 PO 0950 Heparin Sodium 25,000 UNIT .STK-MED ONE 02/03 1334 DC (Porcine) IV 02/03 1335 Heparin Sodium 25,000 UNIT Q24H 01/30 1930 AC 02/03 (Porcine) IV 1334 Sodium Chloride 500 ML Metoprolol Tartrate 25 MG BID 02/04 1000 AC PO Nystatin 1 ANUPAM TID 01/30 1638 DC 02/03 TOP 1519 Ondansetron HCl 4 MG Q6P PRN 01/31 2030 AC 01/31 IV 202 Pantoprazole Sodium 40 MG DAILY 02/01 0030 AC 02/04 IV 0911 Phenytoin 200 MG 0600,1800 02/02 0600 AC 02/04 Sodium Chloride 50 ML IV 0553 Results Last 48 Hrs of Labs/Mics: Laboratory Tests 02/04/17 0635: Anion Gap 8, Estimated GFR 59 L, BUN/Creatinine Ratio 26.7 H, APTT 68 H 02/03/17 2150: APTT 51 H 02/03/17 1450: APTT 91 H 02/03/17 0130: APTT 71 H Recent Imaging Studies: Abdominal x-ray IMPRESSION: Improving bowel gas pattern. Telemetry tracings were personally reviewed and show atrial fibrillation with intermittent pauses overnight and some tachycardia today Assessment/Plan Assessment/Plan 1. Atrial fibrillation 2. Tachybradycardia syndrome 3. COPD 4. History of PE 5. Small bowel obstruction 6. Acute kidney injury, improved Patient continues to have evidence of tachybradycardia syndrome and will likely require permanent pacemaker which she is willing to consider when medically optimized. Can continue on the current AV danuta christopher regimen for now. Continue on heparin drip. Sumit Griffin MD [facility] Continue telemetry? Yes
--- NOTE | 2017-02-04 14:34 | PN- Att Addend ---
Attending MD Review Statement Attending Statement Attending MD Statement: examined this patient, discuss w/resident/PA/HOPPER ATTENDANT, agreed w/resident/PA/HOPPER ATTENDANT, reviewed EMR data (avail), discussed w/nursing Attending Assessment/Plan: Laboratory Tests 02/04/17 0635: Anion Gap 8, Estimated GFR 59 L, BUN/Creatinine Ratio 26.7 H, APTT 68 H 02/03/17 2150: APTT 51 H 02/03/17 1450: APTT 91 H Vital Signs Date Time Temp Pulse Resp B/P B/P Pulse O2 O2 Flow FiO2 Mean Ox Delivery Rate 02/04 1116 139 102/72 06/04 0847 97.5 139 20 102/72 93 Room Air 02/04 0800 Room Air 02/03 2321 96.9 61 24 108/64 93 Room Air / 1555 96.9 76 18 102/62 93 Room Air Subjectively- pt complains of pain in both legs in thigh areas. 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 fell before admission on left side, xray hip left was negative for fracture. if cont to have pain will get xray of the other hip. No chest pain or sob. Positive for constipation. Patient hasn't had any bowel movement since admission. There was a question of bowel movement on 02/02 but nurse for the patient says that she did not have any bowel movement. objectively- On exam pt is able to move both her lower extremities, able to bend her knees but is deconditioned and has significant muscular weakness. Abdomen soft and non tender. Tele- sinus pauses. A/p- Sinus pauses- cardiology following the patient and they have decreased her Cardizem dose. They're considering the possibility of pacemaker placement. Patient does have history of A. fib and is currently on heparin drip as her Coumadin is on hold. Ileus- no bowel movement for the last few days. Abdominal x-ray done again today shows improvement. We will give her soap water enema and Dulcolax suppository today and see if that helps with the bowel movement. Continue on clear liquid diet. Afib- continue on heparin drip. Continue to hold Coumadin. Decrease the dose of Cardizem today by cardiology because of sinus pauses
[2017-02-04 15:41] VITALS: BP 118/74
[2017-02-04 18:53] LABS: ABSOLUTE BASOPHIL COUNT 0 /CUMM (0.0-0.2); ABSOLUTE EOSINOPHIL COUNT 0.2 /CUMM (0.0-0.7); ABSOLUTE GRANULOCYTE CT 4.8 /CUMM (1.4-6.5); ABSOLUTE LYMPH COUNT 0.7 /CUMM (1.2-3.4); ABSOLUTE MONOCYTE COUNT 0.8 /CUMM (0.10-0.60); BASOPHIL % 0.3 % (0.0-2.0); EOSINOPHIL % 2.7 % (0-5); GRANULOCYTE % 74.1 % (42.2-75.2); HEMATOCRIT 38.3 % (37-47); MEAN CORPUSCULAR HGB 28.7 PG (27.0-31.0); MEAN CORPUSCULAR HGB CONC 31.9 G/DL (33.0-37.0); MEAN CORPUSCULAR VOLUME 90.1 FL (81.0-99.0); MEAN PLATELET VOLUME 8.5 FL (7.4-10.4); PLATELET COUNT 190 /CUMM (130-400); RBC DISTRIBUTION WIDTH 16.3 % (11.5-14.5); RED BLOOD CELL CT 4.25 /CUMM (4.20-5.40); WHITE BLOOD CELL COUNT 6.5 /CUMM (4.8-10.8)
[2017-02-04 19:26] LABS: PTT > 120 SEC (25-37)
[2017-02-04 22:00] VITALS: BP 114/76
[2017-02-05 03:54] LABS: ABSOLUTE BASOPHIL COUNT 0 /CUMM (0.0-0.2); ABSOLUTE EOSINOPHIL COUNT 0.2 /CUMM (0.0-0.7); ABSOLUTE GRANULOCYTE CT 4.3 /CUMM (1.4-6.5); ABSOLUTE LYMPH COUNT 0.7 /CUMM (1.2-3.4); ABSOLUTE MONOCYTE COUNT 0.6 /CUMM (0.10-0.60); BASOPHIL % 0.4 % (0.0-2.0); EOSINOPHIL % 3.8 % (0-5); GRANULOCYTE % 72.9 % (42.2-75.2); HEMATOCRIT 37.2 % (37-47); MEAN CORPUSCULAR HGB 28.7 PG (27.0-31.0); MEAN CORPUSCULAR HGB CONC 31.8 G/DL (33.0-37.0); MEAN CORPUSCULAR VOLUME 90.5 FL (81.0-99.0); MEAN PLATELET VOLUME 8.4 FL (7.4-10.4); PLATELET COUNT 172 /CUMM (130-400); RED BLOOD CELL CT 4.11 /CUMM (4.20-5.40); WHITE BLOOD CELL COUNT 5.9 /CUMM (4.8-10.8)
[2017-02-05 04:04] LABS: PTT 55 SEC (25-37)
[2017-02-05 04:20] LABS: PT 48.8 SEC (9.4-12.5)
--- NOTE | 2017-02-05 07:19 | PN- Housestaff ---
See Addendum Subjective Follow-up For: 1.Mechanical fall 2.Atrial fibrillation 3.Hypothyroidism 4.SBO Tele-Events Since Last Visit: A flutter, heart rate 60s to 80s, with no events Subjective: Afebrile, hemodynamically stable, saturating well on room air. No acute overnight events reported. She still complains of lower extremity pain. Patient had a large bowel movement yesterday and a small bowel movement this morning. She denies any other current active complaints. Patient left leg is cold when compared to right leg. She also has generalized swelling. Review of Systems Constitutional: Reports: no symptoms. Objective Last 24 Hrs of Vital Signs/I&O Vital Signs Date Time Temp Pulse Resp B/P B/P Pulse O2 O2 Flow FiO2 Mean Ox Delivery Rate 02/05 0901 130 118/76 / 0800 Room Air 02/05 0755 96.4 130 20 118/76 91 Room Air / 0000 Room Air 02/04 2200 97.6 104 18 114/76 94 Room Air 02/04 2112 127 114/76 02/04 1541 97.5 100 20 118/74 94 Room Air Intake & Output 02/05 1600 /05 0800 06/05 0000 Intake Total 650 1213.2 Output Total Balance 650 1213.2 Intake, IV 650 913.2 Intake, Oral 300 Physical Exam General Appearance: Alert, Oriented X3, Cooperative, No Acute Distress HEENT: Atraumatic, PERRLA, EOMI, Mucous Membr. moist/pink Cardiovascular: Regular Rate, Normal S1, Normal S2, No Murmurs Lungs: diminished air entry over lung base B/L Abdomen: Soft, No Tenderness Neurological: Normal Speech Extremities: +2 LE edema up to the thighs, B/L UE edema with left being more than right Current Medications: Current Medications Sig/Liudmila Start time Last Medication Dose Route Stop Time Status Admin Acetaminophen 1,000 MG Q6P PRN 02/04 1300 AC 02/04 IV 2102 Atorvastatin Calcium 10 MG 1700 01/30 1700 AC 02/04 PO 1717 Bisacodyl 10 MG ONCE ONE 02/04 1430 DC 02/04 NH 02/04 1431 1717 Dextrose/Sodium 1,000 ML Q10H 02/01 1130 DC 02/04 Chloride IV 1033 Diltiazem HCl 240 MG DAILY 02/04 1000 AC 02/05 PO 0901 Glycerin 2 SPRAY Q2P PRN 02/01 0745 AC 02/02 PO 0950 Heparin Sodium 25,000 UNIT Q24H 01/30 1930 AC 02/04 (Porcine) IV 1757 Sodium Chloride 500 ML Metoprolol Tartrate 25 MG BID 02/04 1000 AC 02/05 PO 0901 Ondansetron HCl 4 MG Q6P PRN 01/31 2030 AC 01/31 IV 202 Pantoprazole Sodium 40 MG DAILY 02/01 0030 AC 02/05 IV 0901 Phenytoin 200 MG 0600,1800 02/02 0600 AC 02/05 Sodium Chloride 50 ML IV 0821 Sodium Chloride 1,000 ML Q10H 02/05 0030 DC IV Sodium Chloride 1,000 ML Q10H 02/05 0000 DC 02/04 IV 2349 Last 24 Hrs of Lab/Kurt Results Last 24 Hrs of Labs/Mics: Laboratory Tests 02/05/17 1030: APTT Cancelled 02/05/17 0945: PT 48.7 *H, INR 4.71 *H, APTT 55 H 02/05/17 0904: Anion Gap 7, Estimated GFR > 60, BUN/Creatinine Ratio 25.0, Total Bilirubin 0.5, Direct Bilirubin 0.4, AST 27, ALT 35, Alkaline Phosphatase 158 H, Total Protein 5.4 L, Albumin 2.3 L 02/05/17 0330: PT 48.8 *H, INR 4.72 *H 02/05/17 0330: APTT 55 H, CBC w Diff NO MAN DIFF REQ, RBC 4.11 L, MCV 90.5, MCH 28.7, RDW 16.0 H, MPV 8.4, Gran % 72.9, Lymphocytes % 12.4 L, Monocytes % 10.5 H, Eosinophils % 3.8, Basophils % 0.4, Absolute Granulocytes 4.3, Absolute Lymphocytes 0.7 L, Absolute Monocytes 0.6, Absolute Eosinophils 0.2, Absolute Basophils 0, PUBS MCHC 31.8 L 02/04/17 1820: APTT > 120 *H, CBC w Diff NO MAN DIFF REQ, RBC 4.25, MCV 90.1, MCH 28.7, RDW 16.3 H, MPV 8.5, Gran % 74.1, Lymphocytes % 10.9 L, Monocytes % 12.0 H, Eosinophils % 2.7, Basophils % 0.3, Absolute Granulocytes 4.8, Absolute Lymphocytes 0.7 L, Absolute Monocytes 0.8 H, Absolute Eosinophils 0.2, Absolute Basophils 0, PUBS MCHC 31.9 L Assessment/Plan Assessment: 87 yo female with PMH of COPD, recent A.fib, hypothyroidism, hyperlipidemia, seizure disorder, possible TIA, PE, and frequent UTI presented with CC of mechanical fall with left knee trauma. Assessment and plan # Atrial fibrillation with RVR Cardiology would like to observe patient heartrate on ambulation.In the heartrate they will decide pacemaker versus pharmacological control. Patient INR was found to be elevated up to 4.7 even though she did not receive warfarin for the past 4 days. She is on IV heparin * DC IV heparin patient's has supratherapeutic INR * Continue Cardizem CD 240 by mouth daily * Continue metoprolol 25 mg twice a day * We will follow cardiology recommendation regard the need for pacemaker #Intestinal obstruction Patient had a large bowel movement yesterday and another one earlier today. Denies any symptoms suggestive of ongoing obstruction. * Continue clear liquid diet, advance as tolerated. #Lower and upper extremity edema: * DC all hydration #History of pulmonary embolism * DC heparin drip given the supratherapeutic INR #History of hypothyroidism * Continue home dose of thyroid tab #Hyperlipidemia * Continue statin #History of seizure disorder * Continue phenytoin Heart healthy DVT PPX IV heparin Full code Problem List: 1. Atrial fibrillation with RVR Pain Ratin Pain Location: LE Pain Goal: Remain pain free Pain Plan: See A&P Tomorrow's Labs & Rationales: INR Consulting Request: Consulting Specialty: Cardiology Consulting Physician: Bienvenido Garland MD Reason for Consult: a. FIB WITH rvr
--- NOTE | 2017-02-05 07:45 | NUR ---
0330 PTT WAS 55. D/T INCREASED INR AND PT OK TO HOLD HEPARIN BOLUS PER REE TEAGUE MD. DRIP RATE ADJUSTED PER PROTOCOL, NEXT PTT DUE 02/05/17 @ 1030.
--- NOTE | 2017-02-05 07:48 | NUR ---
IN TO ASSESS PT AND LEFT FOOT COLDER THAN RIGHT AND MORE PALE. PEDAL PULSES PRESENT BY DOPLER ONLY. HOME SUPPORT WORKER ISMAIL AWARE. WILL CONTINUE TO MONITOR.
[2017-02-05 07:55] VITALS: BP 118/76
--- NOTE | 2017-02-05 10:56 | PN- Cardiology ---
Subjective Subjective: No specific complaints. Telemetry remains in atrial fibrillation with variable ventricular response rates. Several significant pauses were observed over the weekend. Objective Vital Signs and I&Os Vital Signs Date Time Temp Pulse Resp B/P B/P Pulse O2 O2 Flow FiO2 Mean Ox Delivery Rate 02/05 0901 130 118/76 06/05 0800 Room Air / 0755 96.4 130 20 118/76 91 Room Air 06/05 0000 Room Air 02/04 2200 97.6 104 18 114/76 94 Room Air / 2112 127 114/76 06/ 1541 97.5 100 20 118/74 94 Room Air / 1116 139 102/72 Intake & Output 02/05 1600 / 0800 / 0000 02/04 1600 02/04 0800 02/04 0000 Intake Total 650 1213.2 1258.4 Output Total 200 Balance 650 1213.2 1058.4 Intake, IV 650 913.2 1018.4 Intake, Oral 300 240 Output, Urine 200 Patient 197 lb Weight Weight Bhargavi Lift Measurement Method Physical Exam: Well-developed, well-nourished elderly female in no acute distress with nasal oxygen in place. Vital signs: See above. Lungs: Decreased breath sounds bilaterally. Heart: S1, S2 (irregularly, irregular) with grade 1/6 systolic murmur. Abdomen: Soft, nontender, positive bowel sounds. Extremities: Positive edema. Current Medications: Current Medications Sig/Liudmila Start time Last Medication Dose Route Stop Time Status Admin Acetaminophen 1,000 MG Q6P PRN 02/04 1300 AC 02/04 IV 2102 Acetaminophen 650 MG Q6-PRN PRN 02/03 1015 DC 02/04 PO 0911 Atorvastatin Calcium 10 MG 1700 01/30 1700 AC 02/04 PO 1717 Bisacodyl 10 MG ONCE ONE 02/04 1430 DC 02/04 CO 02/04 1431 1717 Dextrose/Sodium 1,000 ML Q10H 02/01 1130 DC 02/04 Chloride IV 1033 Diltiazem HCl 240 MG DAILY 02/04 1000 AC 02/05 PO 0901 Glycerin 2 SPRAY Q2P PRN 02/01 0745 AC 02/02 PO 0950 Heparin Sodium 25,000 UNIT Q24H 01/30 1930 AC 02/04 (Porcine) IV 1757 Sodium Chloride 500 ML Metoprolol Tartrate 25 MG BID 02/04 1000 AC 02/05 PO 0901 Ondansetron HCl 4 MG Q6P PRN 01/31 2030 AC 01/31 IV 202 Pantoprazole Sodium 40 MG DAILY 02/01 0030 AC 02/05 IV 0901 Phenytoin 200 MG 0600,1800 02/02 0600 AC 02/05 Sodium Chloride 50 ML IV 0821 Sodium Chloride 1,000 ML Q10H 02/05 0030 DC IV Sodium Chloride 1,000 ML Q10H 02/05 0000 DC 02/04 IV 2349 Results Last 48 Hrs of Labs/Mics: Laboratory Tests 02/05/17 1030: APTT Cancelled 02/05/17 0945: PT Pending, INR Pending, APTT Pending 02/05/17 0904: Anion Gap 7, Estimated GFR > 60, BUN/Creatinine Ratio 25.0, Total Bilirubin 0.5, Direct Bilirubin 0.4, AST 27, ALT 35, Alkaline Phosphatase 158 H, Total Protein 5.4 L, Albumin 2.3 L 02/05/17 0330: PT 48.8 *H, INR 4.72 *H 02/05/17 0330: APTT 55 H, CBC w Diff NO MAN DIFF REQ, RBC 4.11 L, MCV 90.5, MCH 28.7, RDW 16.0 H, MPV 8.4, Gran % 72.9, Lymphocytes % 12.4 L, Monocytes % 10.5 H, Eosinophils % 3.8, Basophils % 0.4, Absolute Granulocytes 4.3, Absolute Lymphocytes 0.7 L, Absolute Monocytes 0.6, Absolute Eosinophils 0.2, Absolute Basophils 0, PUBS MCHC 31.8 L 02/04/17 1820: APTT > 120 *H, CBC w Diff NO MAN DIFF REQ, RBC 4.25, MCV 90.1, MCH 28.7, RDW 16.3 H, MPV 8.5, Gran % 74.1, Lymphocytes % 10.9 L, Monocytes % 12.0 H, Eosinophils % 2.7, Basophils % 0.3, Absolute Granulocytes 4.8, Absolute Lymphocytes 0.7 L, Absolute Monocytes 0.8 H, Absolute Eosinophils 0.2, Absolute Basophils 0, PUBS MCHC 31.9 L 02/04/17 0635: Anion Gap 8, Estimated GFR 59 L, BUN/Creatinine Ratio 26.7 H, APTT 68 H 02/03/17 2150: APTT 51 H 02/03/17 1450: APTT 91 H Recent Imaging Studies: Abdominal x-ray (02/04/2017): Improving bowel gas pattern. Assessment/Plan Assessment/Plan [id number] w/ a hx of tobacco use, COPD, hypothyroidism, HLD, Sz disorder, possible TIA, pul embolism w/ warfarin anticoagulation and remote brief bouts of AF recently hospitalized here (01/12-01/18/2017) w/ AF and RVR and who returned to the ED on 01/29/2017 with complaints of diarrhea, weakness, lethargy, and frequent falls while being treated for urinary tract infection with ciprofloxacin. The ventricular response rates to her atrial fibrillation have been very variable suggesting underlying sick sinus syndrome and the plan will be to determine if she is an appropriate candidate for a permanent pacemaker so that the rapid ventricular response rates can be adequately treated without her becoming too bradycardic. I discussed the situation with Mrs. Hansen and her son on 01/31/2017 and further recommendations will follow. Unfortunately, Mrs. Hansen developed suspected small bowel obstruction and, as a result, has had little in the way of physical activity to allow us to determine if the ventricular response rates are excessive. Fortunately, today's abdominal chest x-ray suggests improvement. Continue telemetry? Yes
[2017-02-05 10:57] LABS: PTT 55 SEC (25-37)
[2017-02-05 11:37] LABS: PT 48.7 SEC (9.4-12.5)
--- NOTE | 2017-02-05 12:11 | NUR ---
LATE ENTRY 0954 PT HAD A 3 SEC PAUSE. PT ASYMPTOMATIC SITTING UP IN BED TALKING WITH SON. STUDENT FINANCE SPECIALIST ISMAIL AWARE. WILL CONTINUE TO MONITOR PT.
--- NOTE | 2017-02-05 15:21 | RADIOLOGY REPORT ---
EXAMINATION: XR PORTABLE ABDOMEN CLINICAL INFORMATION: Constipation COMPARISON: 02/04/2017 TECHNIQUE: AP view of the abdomen. FINDINGS: There is mild to moderate gaseous distention of the visualized colon, without convincing evidence for obstruction. A small amount of small bowel gas is also noted. Mild to moderate amount of stool is scattered in the colon. There is partial vertebral body height loss at L1. IMPRESSION: Mild to moderate gaseous distention of the colon without specific findings for obstruction.
[2017-02-05 16:14] VITALS: BP 96/70
[2017-02-05 22:27] VITALS: BP 100/62
--- NOTE | 2017-02-06 07:36 | PN- Housestaff ---
Subjective Follow-up For: 1.Mechanical fall 2.Atrial fibrillation 3.Hypothyroidism 4.SBO Tele-Events Since Last Visit: A. fib, heart rate between 89-91. No other acute overnight events. Subjective: Patient seen and examined this morning. Afebrile, hemodynamically stable, saturating well on room air. She continues to have edema up to the thighs. Does not complain of any nausea, vomiting, abdominal pain, she has been started on regular diet, tolerating well with continue to monitor. Review of Systems Constitutional: Denies: chills, fever. Respiratory: Denies: cough, short of breath, sputum production. Gastrointestinal: Denies: abdominal pain, constipation, diarrhea, nausea, vomiting. Genitourinary: Denies: dysuria, frequency. Objective Last 24 Hrs of Vital Signs/I&O Vital Signs Date Time Temp Pulse Resp B/P B/P Pulse O2 O2 Flow FiO2 Mean Ox Delivery Rate 02/06 0915 114 127/68 / 0849 98.2 114 18 127/68 93 Room Air 02/06 0800 Room Air 02/06 0000 Room Air / 2227 96.8 128 22 100/62 93 Room Air 06/05 2133 99 100/62 06/05 1614 65 20 96/70 92 Room Air /05 1428 Room Air Intake & Output 02/06 1600 02/06 0800 / 0000 Intake Total 100 244 Output Total Balance 100 244 Intake, IV 50 74 Intake, Oral 50 170 Physical Exam General Appearance: Alert, Oriented X3, Cooperative Cardiovascular: Regular Rate, Normal S1, Normal S2, No Murmurs Lungs: Clear to Auscultation, Normal Air Movement Abdomen: Normal Bowel Sounds, Soft, No Tenderness Extremities: bilateral 3+ edema Current Medications: Current Medications Sig/Liudmila Start time Last Medication Dose Route Stop Time Status Admin Acetaminophen 1,000 MG Q6P PRN 02/04 1300 AC 02/04 IV 2102 Atorvastatin Calcium 10 MG 1700 01/30 1700 AC 02/05 PO 1703 Diltiazem HCl 240 MG DAILY 02/04 1000 AC 02/06 PO 0915 Glycerin 2 SPRAY Q2P PRN 02/01 0745 AC 02/02 PO 0950 Heparin Sodium 25,000 UNIT Q24H 01/30 1930 DC 02/04 (Porcine) IV 1757 Sodium Chloride 500 ML Metoprolol Tartrate 25 MG BID 02/04 1000 AC 02/06 PO 0915 Ondansetron HCl 4 MG Q6P PRN 01/31 2030 AC 01/31 IV 202 Pantoprazole Sodium 40 MG DAILY 02/01 0030 AC 02/06 IV 0915 Phenytoin 200 MG 0600,1800 / 0600 AC 02/06 Sodium Chloride 50 ML IV 06 Last 24 Hrs of Lab/Kurt Results Last 24 Hrs of Labs/Mics: Laboratory Tests 02/06/17 0640: Anion Gap 8, Estimated GFR > 60, BUN/Creatinine Ratio 31.3 H, PT 49.6 *H, INR 4.80 *H, CBC w Diff NO MAN DIFF REQ, RBC 4.47, MCV 90.4, MCH 28.5, RDW 15.9 H, MPV 8.7, Gran % 72.7, Lymphocytes % 15.8 L, Monocytes % 9.4 H, Eosinophils % 2.0, Basophils % 0.1, Absolute Granulocytes 3.9, Absolute Lymphocytes 0.8 L, Absolute Monocytes 0.5, Absolute Eosinophils 0.1, Absolute Basophils 0, PUBS MCHC 31.5 L Assessment/Plan Assessment: 87 yo female with PMH of COPD, recent A.fib, hypothyroidism, hyperlipidemia, seizure disorder, possible TIA, PE, and frequent UTI presented with CC of mechanical fall with left knee trauma. Assessment and plan # Atrial fibrillation with RVR Pending cardiology decision for further cardiac intervention that is need for pacemaker placement Versus from a neurological control. INR remains therapeutic. * Continue Cardizem CD 240 by mouth daily * Continue metoprolol 25 mg twice a day * We will follow cardiology recommendation regard the need for pacemaker #Intestinal obstruction Resolved- diet advanced, tolerating well. Nice abdominal pain, nausea, vomiting. We'll continue to monitor closely. Has had bowel movement yesterday. #Lower and upper extremity edema: * DC all hydration #History of pulmonary embolism * INR supratherapeutic. #History of hypothyroidism * Continue home dose of thyroid tab #Hyperlipidemia * Continue statin #History of seizure disorder * Continue phenytoin Heart healthy DVT PPX IV heparin Full code Problem List: 1. Atrial fibrillation 2. DVT prophylaxis 3. Full code status 4. Hypothyroidism Pain Ratin Pain Location: none Pain Goal: Remain pain free Pain Plan: Tylenol Tomorrow's Labs & Rationales: BP lites monitoring.E Consulting Request: Consulting Specialty: Cardiology Consulting Physician: Bienvenido Garland MD Reason for Consult: a. FIB WITH rvr
[2017-02-06 07:45] LABS: ABSOLUTE BASOPHIL COUNT 0 /CUMM (0.0-0.2); ABSOLUTE EOSINOPHIL COUNT 0.1 /CUMM (0.0-0.7); ABSOLUTE GRANULOCYTE CT 3.9 /CUMM (1.4-6.5); ABSOLUTE LYMPH COUNT 0.8 /CUMM (1.2-3.4); ABSOLUTE MONOCYTE COUNT 0.5 /CUMM (0.10-0.60); BASOPHIL % 0.1 % (0.0-2.0); GRANULOCYTE % 72.7 % (42.2-75.2); HEMATOCRIT 40.4 % (37-47); MEAN CORPUSCULAR HGB 28.5 PG (27.0-31.0); MEAN CORPUSCULAR HGB CONC 31.5 G/DL (33.0-37.0); MEAN CORPUSCULAR VOLUME 90.4 FL (81.0-99.0); MEAN PLATELET VOLUME 8.7 FL (7.4-10.4); PLATELET COUNT 197 /CUMM (130-400); RBC DISTRIBUTION WIDTH 15.9 % (11.5-14.5); RED BLOOD CELL CT 4.47 /CUMM (4.20-5.40); WHITE BLOOD CELL COUNT 5.4 /CUMM (4.8-10.8)
[2017-02-06 08:24] LABS: PT 49.6 SEC (9.4-12.5)
[2017-02-06 08:49] VITALS: BP 127/68
--- NOTE | 2017-02-06 13:53 | PN- Att Addend ---
Attending MD Review Statement Attending Statement Attending MD Statement: examined this patient, discuss w/resident/PA/SAND SYSTEM OPERATOR, agreed w/resident/PA/SAND SYSTEM OPERATOR, reviewed EMR data (avail), discussed w/nursing, discussed w/ case mgmt Attending Assessment/Plan: Laboratory Tests 02/06/17 0640: Anion Gap 8, Estimated GFR > 60, BUN/Creatinine Ratio 31.3 H, PT 49.6 *H, INR 4.80 *H, CBC w Diff NO MAN DIFF REQ, RBC 4.47, MCV 90.4, MCH 28.5, RDW 15.9 H, MPV 8.7, Gran % 72.7, Lymphocytes % 15.8 L, Monocytes % 9.4 H, Eosinophils % 2.0, Basophils % 0.1, Absolute Granulocytes 3.9, Absolute Lymphocytes 0.8 L, Absolute Monocytes 0.5, Absolute Eosinophils 0.1, Absolute Basophils 0, PUBS MCHC 31.5 L Vital Signs Date Time Temp Pulse Resp B/P B/P Pulse O2 O2 Flow FiO2 Mean Ox Delivery Rate 02/06 0915 114 127/68 02/06 0849 98.2 114 18 127/68 93 Room Air 06 0800 Room Air 02/06 0000 Room Air 02/05 2227 96.8 128 22 100/62 93 Room Air 06/05 2133 99 100/62 06/05 1614 65 20 96/70 92 Room Air /05 1428 Room Air 06/05 1416 Room Air Ileus resolved. Will cont to monitor for BM. Started on regular diet. Will cont stool softeners for now. Sick sinus syndrome- cardiology following. Hold heparin as INR is supratherapeutic. Will f/u on INR tomorrow and will repeat cbc tomorrow. If cardio not planning pacemaker placement . will dc to [facility] . case management aware of the dc plan.
--- NOTE | 2017-02-06 16:19 | PN- Cardiology ---
Subjective Subjective: No specific complaints. On telemetry remains in atrial fibrillation with ventricular response rates varying from the 60-90 bpm range. Objective Vital Signs and I&Os Vital Signs Date Time Temp Pulse Resp B/P B/P Pulse O2 O2 Flow FiO2 Mean Ox Delivery Rate 02/06 0915 114 127/68 02/06 0849 98.2 114 18 127/68 93 Room Air 02/06 0800 Room Air 02/06 0000 Room Air 02/05 2227 96.8 128 22 100/62 93 Room Air 02/05 2133 99 100/62 02/05 1614 65 20 96/70 92 Room Air Intake & Output 02/06 1600 02/06 0800 06/ 0000 02/05 1600 02/05 0800 02/05 0000 Intake Total 100 244 496.6 650 1213.2 Output Total Balance 100 244 496.6 650 1213.2 Intake, IV 50 74 196.6 650 913.2 Intake, Oral 50 170 300 300 Number 1 Bowel Movements Physical Exam: Well-developed, overweight elderly female in no acute distress. Vital signs: See above. Neck: No JVD, no bruits. Lungs: Decreased breath sounds bilaterally. Heart: S1, S2 (irregularly, irregular) with grade 1/6 systolic murmur. Abdomen: Soft, nontender, positive bowel sounds. Extremities: No edema. Assessment/Plan Assessment/Plan 87-y-o-w-f w/ a hx of tobacco use, COPD, hypothyroidism, HLD, Sz disorder, possible TIA, pul embolism w/ warfarin anticoagulation and remote brief bouts of AF recently hospitalized here (01/12-01/18/2017) w/ AF and RVR and who returned to the ED on 01/29/2017 with complaints of diarrhea, weakness, lethargy, and frequent falls while being treated for urinary tract infection with ciprofloxacin. The ventricular response rates to her atrial fibrillation had been very variable suggesting underlying sick sinus syndrome and the plan was to determine if she was an appropriate candidate for a permanent pacemaker so that the rapid ventricular response rates can be adequately treated without her becoming too bradycardic. I discussed the situation with Mrs. Hansen and her son on 01/31/2017 and they agreed with this recommendation. Fortunately, Mrs. Hansen's suspected small bowel obstruction has resolved and the ventricular response rates to her atrial fibrillation appear to have stabilized. For now, the plan will be to continue to monitor the situation, as far as, the ventricular response rates to her atrial fibrillation are concerned. If she becomes tachycardic during her activities of daily living she will likely require permanent pacing. Continue telemetry? Yes
[2017-02-06 17:12] VITALS: BP 110/60
[2017-02-07 01:05] VITALS: BP 88/58
[2017-02-07 02:15] VITALS: BP 88/58; BP 98/58
[2017-02-07 04:38] VITALS: BP 92/44
[2017-02-07 07:51] VITALS: BP 88/52
[2017-02-07 08:26] LABS: PT 47.4 SEC (9.4-12.5)
--- NOTE | 2017-02-07 09:07 | PN- Housestaff ---
Subjective Follow-up For: 1.Mechanical fall 2.Atrial fibrillation 3.Hypothyroidism 4.SBO Tele-Events Since Last Visit: Rodney mariscal, heart rate ranging between 70-104 Subjective: Patient seen and examined this morning. Afebrile, hemodynamically stable, saturating well on room air. She continues to have edema up to the thighs. Overnight she was reported to to be hypertensive. Denies any nausea, vomiting, did not have any repeat bowel movements. Review of Systems Constitutional: Reports: see HPI. Objective Last 24 Hrs of Vital Signs/I&O Vital Signs Date Time Temp Pulse Resp B/P B/P Pulse O2 O2 Flow FiO2 Mean Ox Delivery Rate 02/07 1050 95 88/50 / 0800 95 Room Air Room Air 02/07 0751 97.0 80 18 88/52 92 / 0438 78 92/44 / 0215 72 88/58 / 0105 96.2 83 22 88/58 94 06/07 0000 Room Air 02/06 2053 101 100/60 02/06 1712 98.7 71 18 110/60 Intake & Output 02/07 1600 02/07 0800 02/07 0000 Intake Total 104 244 Output Total Balance 104 244 Intake, IV 54 74 Intake, Oral 50 170 Physical Exam General Appearance: Alert, Oriented X3, Cooperative, No Acute Distress Cardiovascular: Regular Rate, Normal S1, Normal S2, No Murmurs Lungs: Clear to Auscultation, Normal Air Movement Abdomen: Normal Bowel Sounds, Soft, No Tenderness Current Medications: Current Medications Sig/Liudmila Start time Last Medication Dose Route Stop Time Status Admin Acetaminophen 1,000 MG Q6P PRN 02/04 1300 AC 02/04 IV 2102 Atorvastatin Calcium 10 MG 1700 01/30 1700 AC 02/06 PO 1659 Diltiazem HCl 240 MG DAILY 02/04 1000 AC 02/07 PO 1016 Glycerin 2 SPRAY Q2P PRN 02/01 0745 AC 02/02 PO 0950 Metoprolol Tartrate 25 MG BID 02/04 1000 AC 02/06 PO 2053 Ondansetron HCl 4 MG Q6P PRN 01/31 2030 AC 01/31 IV 202 Pantoprazole Sodium 40 MG DAILY 02/01 0030 AC 02/07 IV 1022 Phenytoin 200 MG 0600,1800 02/02 0600 AC 02/07 Sodium Chloride 50 ML IV 0459 Sodium Chloride 500 ML BOLUS ONE 02/07 0415 CAN IV 02/07 0514 Last 24 Hrs of Lab/Kurt Results Last 24 Hrs of Labs/Mics: Laboratory Tests 02/07/17 0621: Anion Gap 8, Estimated GFR 53 L, BUN/Creatinine Ratio 29.0 H, PT 47.4 *H, INR 4.58 *H Assessment/Plan Assessment: 87 yo female with PMH of COPD, recent A.fib, hypothyroidism, hyperlipidemia, seizure disorder, possible TIA, PE, and frequent UTI presented with CC of mechanical fall with left knee trauma. Assessment and plan # Atrial fibrillation with RVR Pending cardiology decision for further cardiac intervention that is need for pacemaker placement Versus from a neurological control. INR remains therapeutic. * Continue Cardizem CD 240 by mouth daily * Continue metoprolol 25 mg twice a day * We will follow cardiology recommendation regard the need for pacemaker #Intestinal obstruction Resolved- diet advanced, tolerating well. Nice abdominal pain, nausea, vomiting. We'll continue to monitor closely. Has had bowel movement yesterday. #Lower and upper extremity edema: * DC all hydration #History of pulmonary embolism * INR supratherapeutic. #History of hypothyroidism * Continue home dose of thyroid tab #Hyperlipidemia * Continue statin #History of seizure disorder * Continue phenytoin Heart healthy DVT PPX IV heparin Full code Problem List: 1. SBO (small bowel obstruction) 2. Atrial fibrillation with RVR Pain Ratin Pain Location: none Pain Goal: Remain pain free Pain Plan: Tylenol Tomorrow's Labs & Rationales: BeP for lytes monitoring Consulting Request: Consulting Specialty: Cardiology Consulting Physician: Bienvenido Garland MD Reason for Consult: a. FIB WITH rvr
--- NOTE | 2017-02-07 11:21 | NUR ---
Physical Therapy. PT treatment deferred at this time 2/2 hypotension. PT will f/u as appropriate.
--- NOTE | 2017-02-07 13:35 | PN- Att Addend ---
Attending MD Review Statement Attending Statement Attending MD Statement: examined this patient, discuss w/resident/PA/PYTHON JAVA DEVELOPER, agreed w/resident/PA/PYTHON JAVA DEVELOPER, reviewed EMR data (avail), discussed w/nursing, discussed w/ case mgmt Attending Assessment/Plan: Laboratory Tests 02/07/17 0621: Anion Gap 8, Estimated GFR 53 L, BUN/Creatinine Ratio 29.0 H, PT 47.4 *H, INR 4.58 *H Vital Signs Date Time Temp Pulse Resp B/P B/P Pulse O2 O2 Flow FiO2 Mean Ox Delivery Rate 02/07 1050 95 88/50 02/07 0800 95 Room Air Room Air 02/07 0751 97.0 80 18 88/52 92 02/07 0438 78 92/44 02/07 0215 72 88/58 02/07 0105 96.2 83 22 88/58 94 /07 0000 Room Air 02/06 2053 101 100/60 02/06 1712 98.7 71 18 110/60 Ileus resolved. Will cont to monitor for BM. Started on regular diet. Started on miralax daily and prn stool softeners. Sick sinus syndrome- cardiology following. Hold heparin as INR is supratherapeutic. Will f/u on INR tomorrow and will repeat cbc tomorrow.
--- NOTE | 2017-02-07 14:35 | NUR ---
Physical Therapy. Discussed w/ RN, pt has been hypotensive t/o day and is currently soundly sleeping. Discussed that pt would be a brett OOB as appropriate for nursing. PT will f/u as appropriate tomorrow.
[2017-02-07 15:44] VITALS: BP 90/60
[2017-02-07 23:46] VITALS: BP 110/68
--- NOTE | 2017-02-08 07:11 | PN- Housestaff ---
Subjective Follow-up For: 1.Mechanical fall 2.Atrial fibrillation 3.Hypothyroidism 4.SBO Tele-Events Since Last Visit: Farheen. davey, heart rate ranging between 102-137 Subjective: Patient seen and examined this morning. Afebrile, hemodynamically stable, continues to have edema to thighs. Appeared confused reported that she was not able to sleep, no episodes of nausea, vomiting, abdominal pain, no bowel movement. Review of Systems Constitutional: Denies: chills, fever. Cardiovascular: Denies: chest pain, palpitations. Respiratory: Denies: cough, short of breath, sputum production. Gastrointestinal: Denies: abdominal pain, constipation, diarrhea, nausea, vomiting. Objective Last 24 Hrs of Vital Signs/I&O Vital Signs Date Time Temp Pulse Resp B/P B/P Pulse O2 O2 Flow FiO2 Mean Ox Delivery Rate 02/08 1049 95.3 02/08 1000 112 130/76 / 0843 94.1 111 18 106/62 93 Room Air 02/08 0800 Room Air Room Air 02/07 2346 96.5 116 20 110/68 92 Room Air 02/07 2240 90/00 06/07 1544 80 16 90/60 98 Room Air Intake & Output 02/08 1600 06/08 0800 06/08 0000 Intake Total 100 530 Output Total Balance 100 530 Intake, IV 50 Intake, Oral 100 480 Patient 94.347 kg Weight Weight Bhargavi Lift Measurement Method Physical Exam General Appearance: Alert, Oriented X3, Cooperative, No Acute Distress Cardiovascular: Regular Rate, Normal S1, Normal S2, No Murmurs Lungs: Clear to Auscultation, Normal Air Movement Abdomen: Normal Bowel Sounds, Soft, No Tenderness Extremities: bilateral lower extremity edema 3+ Current Medications: Current Medications Sig/Liudmila Start time Last Medication Dose Route Stop Time Status Admin Acetaminophen 1,000 MG Q6P PRN 02/04 1300 AC 04 IV 2102 Atorvastatin Calcium 10 MG 1700 01/30 1700 AC 02/07 PO 1714 Diltiazem HCl 240 MG DAILY 02/04 1000 AC 02/08 PO 1000 Docusate Sodium 100 MG BID PRN 02/08 1030 AC PO Glycerin 2 SPRAY Q2P PRN 02/01 0745 AC 02/02 PO 0950 Metoprolol Tartrate 25 MG BID 02/04 1000 AC 02/08 PO 1000 Ondansetron HCl 4 MG Q6P PRN 01/31 2030 AC 01/31 IV 2020 Pantoprazole Sodium 40 MG DAILY 02/01 0030 AC 02/08 IV 1001 Phenytoin 100 MG BID 02/08 2200 UNVr PO Phenytoin 200 MG 0600,1800 02/02 06 DC 02/08 Sodium Chloride 50 ML IV 599 Polyethylene Glycol 17 GM DAILY 02/08 1022 AC PO Last 24 Hrs of Lab/Kurt Results Last 24 Hrs of Labs/Mics: Laboratory Tests 02/08/17 07: Anion Gap 5, Estimated GFR 59 L, BUN/Creatinine Ratio 37.8 H, PT 36.7 H, INR 3.54 H, CBC w Diff NO MAN DIFF REQ, RBC 4.49, MCV 90.4, MCH 28.6, RDW 16.2 H, MPV 8.8, Gran % 81.6 H, Lymphocytes % 8.6 L, Monocytes % 8.2, Eosinophils % 1.3, Basophils % 0.3, Absolute Granulocytes 6.0, Absolute Lymphocytes 0.6 L, Absolute Monocytes 0.6, Absolute Eosinophils 0.1, Absolute Basophils 0, PUBS MCHC 31.6 L Assessment/Plan Assessment: 87 yo female with PMH of COPD, recent A.fib, hypothyroidism, hyperlipidemia, seizure disorder, possible TIA, PE, and frequent UTI presented with CC of mechanical fall with left knee trauma. Assessment and plan # Atrial fibrillation with RVR Pending cardiology decision for further cardiac intervention that is need for pacemaker placement Versus pharmacological control. INR therapeutic now. * Continue Cardizem CD 240 by mouth daily * Continue metoprolol 25 mg twice a day * We will follow cardiology recommendation regard the need for pacemaker #Intestinal obstruction Resolved- tolerating by mouth intake well. An ice abdominal pain, nausea, vomiting. We'll continue to monitor closely. Has had bowel movement yesterday. #Lower and upper extremity edema: * DC all hydration #History of pulmonary embolism * INR therapeutic #History of hypothyroidism * Continue home dose of thyroid tab #Hyperlipidemia * Continue statin #History of seizure disorder * Continue phenytoin Heart healthy DVT PPX IV heparin Full code Problem List: 1. Tachy-lauren syndrome 2. Weakness 3. Afib Pain Ratin Pain Location: None Pain Goal: Remain pain free Pain Plan: Mild pain pathway Tomorrow's Labs & Rationales: INR for Coumadin dosing Consulting Request: Consulting Specialty: Cardiology Consulting Physician: Bienvenido Garland MD Reason for Consult: a. FIB WITH rvr
[2017-02-08 08:08] LABS: ABSOLUTE BASOPHIL COUNT 0 /CUMM (0.0-0.2); ABSOLUTE EOSINOPHIL COUNT 0.1 /CUMM (0.0-0.7); ABSOLUTE LYMPH COUNT 0.6 /CUMM (1.2-3.4); ABSOLUTE MONOCYTE COUNT 0.6 /CUMM (0.10-0.60); BASOPHIL % 0.3 % (0.0-2.0); EOSINOPHIL % 1.3 % (0-5); GRANULOCYTE % 81.6 % (42.2-75.2); HEMATOCRIT 40.6 % (37-47); MEAN CORPUSCULAR HGB 28.6 PG (27.0-31.0); MEAN CORPUSCULAR HGB CONC 31.6 G/DL (33.0-37.0); MEAN CORPUSCULAR VOLUME 90.4 FL (81.0-99.0); MEAN PLATELET VOLUME 8.8 FL (7.4-10.4); PLATELET COUNT 199 /CUMM (130-400); RBC DISTRIBUTION WIDTH 16.2 % (11.5-14.5); RED BLOOD CELL CT 4.49 /CUMM (4.20-5.40); WHITE BLOOD CELL COUNT 7.3 /CUMM (4.8-10.8)
[2017-02-08 08:21] LABS: PT 36.7 SEC (9.4-12.5)
[2017-02-08 08:43] VITALS: BP 106/62
--- NOTE | 2017-02-08 12:05 | NUR ---
PHYSICAL THERAPY CANCELL FOR TODAY DUE TO PT LETHARGIC, DIFFICULT TO AROUSE, UNABLE TO STAY AWAKE FOR TREATMENT/PARTICIPATION
--- NOTE | 2017-02-08 13:56 | PN- Att Addend ---
Attending MD Review Statement Attending Statement Attending MD Statement: examined this patient, discuss w/resident/PA/EXCHANGE ADMINISTRATOR, agreed w/resident/PA/EXCHANGE ADMINISTRATOR, reviewed EMR data (avail), discussed w/nursing, discussed w/ case mgmt Attending Assessment/Plan: Laboratory Tests 02/08/17 0705: Anion Gap 5, Estimated GFR 59 L, BUN/Creatinine Ratio 37.8 H, PT 36.7 H, INR 3.54 H, CBC w Diff NO MAN DIFF REQ, RBC 4.49, MCV 90.4, MCH 28.6, RDW 16.2 H, MPV 8.8, Gran % 81.6 H, Lymphocytes % 8.6 L, Monocytes % 8.2, Eosinophils % 1.3, Basophils % 0.3, Absolute Granulocytes 6.0, Absolute Lymphocytes 0.6 L, Absolute Monocytes 0.6, Absolute Eosinophils 0.1, Absolute Basophils 0, PUBS MCHC 31.6 L Vital Signs Date Time Temp Pulse Resp B/P B/P Pulse O2 O2 Flow FiO2 Mean Ox Delivery Rate 02/08 1049 95.3 02/08 1000 112 130/76 02/08 0843 94.1 111 18 106/62 93 Room Air 02/08 0800 Room Air Room Air 02/07 2346 96.5 116 20 110/68 92 Room Air 02/07 2240 90/00 /07 1544 80 16 90/60 98 Room Air Ileus resolved. Will cont to monitor for BM. Started on regular diet. Had BM this am. Cont on miralax daily and prn stool softeners. Son says that she normally has diarrhea, so if she starts having diarrhea the we will change miralax to prn. Sick sinus syndrome- cardiology following. Hold heparin as INR is supratherapeutic. Will f/u on INR tomorrow and will repeat cbc tomorrow. Hold coumadin today as INR still therapeutic. Hypothermia- f/u on temprature. Order warming blanket.
--- NOTE | 2017-02-08 15:20 | PN- Cardiology ---
Subjective Subjective: No new complaints. Had documented atrial fibrillation with a rapid ventricular response of up to 137 bpm this morning at around midnight. Objective Vital Signs and I&Os Vital Signs Date Time Temp Pulse Resp B/P B/P Pulse O2 O2 Flow FiO2 Mean Ox Delivery Rate 02/08 1049 95.3 02/08 1000 112 130/76 02/08 0843 94.1 111 18 106/62 93 Room Air 02/08 0800 Room Air Room Air 02/07 2346 96.5 116 20 110/68 92 Room Air 02/07 2240 90/00 07 1544 80 16 90/60 98 Room Air Intake & Output 02/08 1600 02/08 0800 / 0000 02/07 1600 02/07 0800 02/07 0000 Intake Total 120 100 530 350 104 244 Output Total Balance 120 100 530 350 104 244 Intake, IV 50 54 74 Intake, Oral 120 100 480 350 50 170 Patient 208 lb Weight Weight Bhargavi Lift Measurement Method Physical Exam: Well-developed, overweight elderly female in no acute distress. Vital signs: See above. Neck: No JVD, no bruits. Lungs: Decreased breath sounds bilaterally. Heart: S1, S2 (irregularly, irregular) with grade 1/6 systolic murmur. Abdomen: Soft, nontender, positive bowel sounds. Extremities: No edema. Current Medications: Current Medications Sig/Liudmila Start time Last Medication Dose Route Stop Time Status Admin Acetaminophen 1,000 MG Q6P PRN 02/04 1300 AC 02/04 IV 2102 Atorvastatin Calcium 10 MG 1700 / 1700 AC 02/07 PO 1714 Diltiazem HCl 240 MG DAILY 02/04 1000 AC 02/08 PO 1000 Docusate Sodium 100 MG BID PRN 02/08 1030 AC PO Glycerin 2 SPRAY Q2P PRN 02/01 0745 AC 02/02 PO 0950 Metoprolol Tartrate 25 MG BID 02/04 1000 AC 02/08 PO 1000 Ondansetron HCl 4 MG Q6P PRN 01/31 2030 AC 01/31 IV 2021 Pantoprazole Sodium 40 MG DAILY 02/01 0030 AC 02/08 IV 1001 Phenytoin 100 MG BID 02/08 2200 AC PO Phenytoin 200 MG 0600,1800 02 0600 DC 02/08 Sodium Chloride 50 ML IV 0600 Polyethylene Glycol 17 GM DAILY 02/08 1022 AC PO Results Last 48 Hrs of Labs/Mics: Laboratory Tests 02/08/17 0705: Anion Gap 5, Estimated GFR 59 L, BUN/Creatinine Ratio 37.8 H, PT 36.7 H, INR 3.54 H, CBC w Diff NO MAN DIFF REQ, RBC 4.49, MCV 90.4, MCH 28.6, RDW 16.2 H, MPV 8.8, Gran % 81.6 H, Lymphocytes % 8.6 L, Monocytes % 8.2, Eosinophils % 1.3, Basophils % 0.3, Absolute Granulocytes 6.0, Absolute Lymphocytes 0.6 L, Absolute Monocytes 0.6, Absolute Eosinophils 0.1, Absolute Basophils 0, PUBS MCHC 31.6 L 02/07/17 0621: Anion Gap 8, Estimated GFR 53 L, BUN/Creatinine Ratio 29.0 H, PT 47.4 *H, INR 4.58 *H Assessment/Plan Assessment/Plan 87-y-o-w-f w/ a hx of tobacco use, COPD, hypothyroidism, HLD, Sz disorder, possible TIA, pul embolism w/ warfarin anticoagulation and remote brief bouts of AF recently hospitalized here (01/12-01/18/2017) w/ AF and RVR and who returned to the ED on 01/29/2017 with complaints of diarrhea, weakness, lethargy, and frequent falls while being treated for urinary tract infection with ciprofloxacin. The ventricular response rates to her atrial fibrillation had been very variable suggesting underlying sick sinus syndrome and the plan was to determine if she was an appropriate candidate for a permanent pacemaker so that the rapid ventricular response rates can be adequately treated without her becoming too bradycardic. I discussed the situation with Mrs. Hansen and her son on 01/31/2017 and they agreed with this recommendation. Mrs. Hansen's suspected small bowel obstruction resolved and the ventricular response rates to her atrial fibrillation appeared to have stabilized, until early this morning when the ventricular response rate was again noted to be rapid. The plan will be to proceed with permanent pacemaker implantation, as previously described. Continue telemetry? Yes
[2017-02-08 17:05] VITALS: BP 132/78
[2017-02-09 01:01] VITALS: BP 104/62
--- NOTE | 2017-02-09 07:32 | PN- Housestaff ---
Subjective Follow-up For: 1.Mechanical fall 2.Atrial fibrillation 3.Hypothyroidism 4.SBO Tele-Events Since Last Visit: Farheen. fib, heart rate between 90-100 Subjective: Patient seen and examined this morning. Afebrile, hemodynamically stable, continues to have edema to the thighs. Appeared confused reported that she was not able to sleep, no episodes of nausea, vomiting, abdominal pain, no bowel movement. Lately scheduled for pacemaker placement on Sunday. Review of Systems Constitutional: Denies: chills, fever. Cardiovascular: Denies: chest pain, palpitations. Respiratory: Denies: cough, short of breath, sputum production. Gastrointestinal: Denies: abdominal pain, constipation, diarrhea, nausea, vomiting. Objective Last 24 Hrs of Vital Signs/I&O Vital Signs Date Time Temp Pulse Resp B/P B/P Pulse O2 O2 Flow FiO2 Mean Ox Delivery Rate 02/09 1615 96.1 108 18 110/70 92 Room Air 02/09 1215 Room Air 02/09 1036 98 130/74 02/09 1032 97.9 98 26 130/74 93 Room Air 02/09 0800 Room Air 02/09 0101 97.2 94 24 104/62 92 Room Air 02/08 2026 101 110/70 02/08 1705 96.9 72 28 132/78 93 Intake & Output 02/09 1600 02/09 0800 02/09 0000 Intake Total 260 100 Output Total Balance 260 100 Intake, IV 20 Intake, Oral 240 100 Patient 93.95 kg Weight Weight Bhargavi Lift Measurement Method Physical Exam General Appearance: Alert, Oriented X3, Cooperative, No Acute Distress Cardiovascular: Regular Rate, Normal S1, Normal S2, No Murmurs Lungs: Clear to Auscultation, Normal Air Movement Abdomen: Normal Bowel Sounds, Soft, No Tenderness Extremities: ilaterallower extremity edema 3+ Current Medications: Current Medications Sig/Liudmila Start time Last Medication Dose Route Stop Time Status Admin Acetaminophen 650 MG .STK-MED ONE 02/08 2035 DC PO 02/09 2036 Acetaminophen 1,000 MG Q6P PRN 02/04 1300 AC 02/04 IV 2102 Atorvastatin Calcium 10 MG 1700 / 1700 AC 02/09 PO 1606 Diltiazem HCl 240 MG DAILY 02/04 1000 AC 02/09 PO 1036 Docusate Sodium 100 MG BID PRN 02/08 1030 AC PO Glycerin 2 SPRAY Q2P PRN 02/01 0745 AC 02/02 PO 0950 Metoprolol Tartrate 25 MG BID 02/04 1000 AC 02/09 PO 1036 Ondansetron HCl 4 MG Q6P PRN 01/31 2030 AC 01/31 IV 202 Pantoprazole Sodium 40 MG DAILY 02/01 0030 AC 02/09 IV 1035 Phenytoin 100 MG BID 02/08 2200 AC 02/09 PO 1036 Polyethylene Glycol 17 GM DAILY 02/08 1022 AC 02/09 PO 1035 Last 24 Hrs of Lab/Kurt Results Last 24 Hrs of Labs/Mics: Laboratory Tests 02/09/17 0655: PT 27.7 H, INR 2.66 H, CBC w Diff NO MAN DIFF REQ, RBC 4.45, MCV 90.1, MCH 28.7, RDW 16.3 H, MPV 9.1, Gran % 71.8, Lymphocytes % 14.0 L, Monocytes % 10.8 H, Eosinophils % 3.3, Basophils % 0.1, Absolute Granulocytes 4.1, Absolute Lymphocytes 0.8 L, Absolute Monocytes 0.6, Absolute Eosinophils 0.2, Absolute Basophils 0, PUBS MCHC 31.8 L Assessment/Plan Assessment: 87 yo female with PMH of COPD, recent A.fib, hypothyroidism, hyperlipidemia, seizure disorder, possible TIA, PE, and frequent UTI presented with CC of mechanical fall with left knee trauma. Assessment and plan # Atrial fibrillation with RVR Patient's likely scheduled for pacemaker placement on Sunday, INR today 2.66, will follow INR tomorrow. If INR below 2 would start the patient on heparin. * Continue Cardizem CD 240 by mouth daily * Continue metoprolol 25 mg twice a day * We will follow cardiology recommendation regard the need for pacemaker #Intestinal obstruction Resolved- tolerating by mouth intake well. An ice abdominal pain, nausea, vomiting. We'll continue to monitor closely. Has had bowel movement yesterday. #Lower and upper extremity edema: * DC all hydration #History of pulmonary embolism * INR therapeutic #History of hypothyroidism * Continue home dose of thyroid tab #Hyperlipidemia * Continue statin #History of seizure disorder * Continue phenytoin Heart healthy DVT PPX IV heparin Full code Problem List: 1. Afib 2. Atrial fibrillation with RVR 3. Tachy-lauren syndrome Pain Ratin Pain Location: None Pain Goal: Remain pain free Pain Plan: Might pain pathway Tomorrow's Labs & Rationales: INR CBC Consulting Request: Consulting Specialty: Cardiology Consulting Physician: Bienvenido Garland MD Reason for Consult: a. ZULEIMA WITH rvr
[2017-02-09 08:17] LABS: PT 27.7 SEC (9.4-12.5)
[2017-02-09 08:27] LABS: ABSOLUTE BASOPHIL COUNT 0 /CUMM (0.0-0.2); ABSOLUTE EOSINOPHIL COUNT 0.2 /CUMM (0.0-0.7); ABSOLUTE GRANULOCYTE CT 4.1 /CUMM (1.4-6.5); ABSOLUTE LYMPH COUNT 0.8 /CUMM (1.2-3.4); ABSOLUTE MONOCYTE COUNT 0.6 /CUMM (0.10-0.60); BASOPHIL % 0.1 % (0.0-2.0); EOSINOPHIL % 3.3 % (0-5); GRANULOCYTE % 71.8 % (42.2-75.2); HEMATOCRIT 40.2 % (37-47); MEAN CORPUSCULAR HGB 28.7 PG (27.0-31.0); MEAN CORPUSCULAR HGB CONC 31.8 G/DL (33.0-37.0); MEAN CORPUSCULAR VOLUME 90.1 FL (81.0-99.0); MEAN PLATELET VOLUME 9.1 FL (7.4-10.4); RBC DISTRIBUTION WIDTH 16.3 % (11.5-14.5); RED BLOOD CELL CT 4.45 /CUMM (4.20-5.40); WHITE BLOOD CELL COUNT 5.7 /CUMM (4.8-10.8)
[2017-02-09 09:02] LABS: PLATELET COUNT 200 /CUMM (130-400)
[2017-02-09 10:32] VITALS: BP 130/74
--- NOTE | 2017-02-09 10:56 | NUR ---
Physical Thearpy: Pt's chart reviewed for treatment today. Pt is currenty tachycardic, fluctuating between 100-130 bpm at rest. Questionable pacemaker placement? Will cx treatment at this time and follow up as appropriate. Thank you.
--- NOTE | 2017-02-09 14:57 | PN- Att Addend ---
Attending MD Review Statement Attending Statement Attending MD Statement: examined this patient, discuss w/resident/PA/ENDLESS STEAMER TENDER, agreed w/resident/PA/ENDLESS STEAMER TENDER, reviewed EMR data (avail), discussed w/nursing, discussed w/ case mgmt Attending Assessment/Plan: Laboratory Tests 02/09/17 0655: PT 27.7 H, INR 2.66 H, CBC w Diff NO MAN DIFF REQ, RBC 4.45, MCV 90.1, MCH 28.7, RDW 16.3 H, MPV 9.1, Gran % 71.8, Lymphocytes % 14.0 L, Monocytes % 10.8 H, Eosinophils % 3.3, Basophils % 0.1, Absolute Granulocytes 4.1, Absolute Lymphocytes 0.8 L, Absolute Monocytes 0.6, Absolute Eosinophils 0.2, Absolute Basophils 0, PUBS MCHC 31.8 L Vital Signs Date Time Temp Pulse Resp B/P B/P Pulse O2 O2 Flow FiO2 Mean Ox Delivery Rate 02/09 1215 Room Air 02/09 1036 98 130/74 02/09 1032 97.9 98 26 130/74 93 Room Air 02/09 0800 Room Air 02/09 0101 97.2 94 24 104/62 92 Room Air 02/08 2026 101 110/70 02/08 1705 96.9 72 28 132/78 93 02/08 1600 95 Room Air Room Air pt seen and examied at bedside. Pt likely to go for PPM placement on Sunday. Cont to hold coumadin for now. Start on heparin once INR drops below 2. Will hold off on giving vit k for now. If INR above 1.6 on Sunday will give Vit K on Sunday.
--- NOTE | 2017-02-09 15:41 | PN- Cardiology ---
Subjective Subjective: No complaints. She remains in atrial fibrillation with a ventricular response rate in the 70-90 bpm range today. Objective Vital Signs and I&Os Vital Signs Date Time Temp Pulse Resp B/P B/P Pulse O2 O2 Flow FiO2 Mean Ox Delivery Rate 02/09 1215 Room Air 02/09 1036 98 130/74 02/09 1032 97.9 98 26 130/74 93 Room Air 02/09 0800 Room Air 02/09 0101 97.2 94 24 104/62 92 Room Air 02/08 2026 101 110/70 02/08 1705 96.9 72 28 132/78 93 02/08 1600 95 Room Air Room Air Intake & Output 02/09 1600 02/09 0800 02/09 0000 02/08 1600 02/08 0800 02/08 0000 Intake Total 260 100 120 100 530 Output Total Balance 260 100 120 100 530 Intake, IV 20 50 Intake, Oral 240 100 120 100 480 Patient 207 lb 208 lb Weight Weight Bhargavi Lift Bhargavi Lift Measurement Method Physical Exam: Well-developed elderly female in no acute distress with nasal oxygen in place. Vital signs: See above. Neck: No JVD, no bruits. Lungs: Decreased breath sounds bilaterally. Heart: S1, S2 with grade 1/6 systolic murmur. Abdomen: Soft, nontender, positive bowel sounds. Extremities: Positive edema. Current Medications: Current Medications Sig/Liudmila Start time Last Medication Dose Route Stop Time Status Admin Acetaminophen 650 MG .STK-MED ONE 02/08 2035 DC PO 02/09 2036 Acetaminophen 1,000 MG Q6P PRN 02/04 1300 AC 02/04 IV 2102 Atorvastatin Calcium 10 MG 1700 01/30 1700 AC 02/08 PO 1641 Diltiazem HCl 240 MG DAILY 02/04 1000 AC 02/09 PO 1036 Docusate Sodium 100 MG BID PRN 02/08 1030 AC PO Glycerin 2 SPRAY Q2P PRN 02/01 0745 AC 02/02 PO 0950 Metoprolol Tartrate 25 MG BID 02/04 1000 AC 02/09 PO 1036 Ondansetron HCl 4 MG Q6P PRN 01/31 2030 AC 01/31 IV 202 Pantoprazole Sodium 40 MG DAILY 02/01 0030 AC 02/09 IV 1035 Phenytoin 100 MG BID 02/08 2200 AC 02/09 PO 1036 Polyethylene Glycol 17 GM DAILY 02/08 1022 AC 02/09 PO 1035 Results Last 48 Hrs of Labs/Mics: Laboratory Tests 02/09/17 0655: PT 27.7 H, INR 2.66 H, CBC w Diff NO MAN DIFF REQ, RBC 4.45, MCV 90.1, MCH 28.7, RDW 16.3 H, MPV 9.1, Gran % 71.8, Lymphocytes % 14.0 L, Monocytes % 10.8 H, Eosinophils % 3.3, Basophils % 0.1, Absolute Granulocytes 4.1, Absolute Lymphocytes 0.8 L, Absolute Monocytes 0.6, Absolute Eosinophils 0.2, Absolute Basophils 0, PUBS MCHC 31.8 L 02/08/17 0705: Anion Gap 5, Estimated GFR 59 L, BUN/Creatinine Ratio 37.8 H, PT 36.7 H, INR 3.54 H, CBC w Diff NO MAN DIFF REQ, RBC 4.49, MCV 90.4, MCH 28.6, RDW 16.2 H, MPV 8.8, Gran % 81.6 H, Lymphocytes % 8.6 L, Monocytes % 8.2, Eosinophils % 1.3, Basophils % 0.3, Absolute Granulocytes 6.0, Absolute Lymphocytes 0.6 L, Absolute Monocytes 0.6, Absolute Eosinophils 0.1, Absolute Basophils 0, PUBS MCHC 31.6 L Assessment/Plan Assessment/Plan [id number] w/ a hx of tobacco use, COPD, hypothyroidism, HLD, Sz disorder, possible TIA, pul embolism w/ warfarin anticoagulation and remote brief bouts of AF recently hospitalized here (01/12-01/18/2017) w/ AF and RVR who returned to the ED on 01/29/2017 with complaints of diarrhea, weakness, lethargy, and frequent falls while being treated for a UTI with ciprofloxacin. The ventricular response rates to her atrial fibrillation had been very variable suggesting underlying sick sinus syndrome and the plan was to determine if she was an appropriate candidate for a permanent pacemaker so that the rapid ventricular response rates can be adequately treated without her becoming too bradycardic. I discussed the situation with Mrs. Hansen and her son on 01/31/2017 and they agreed with this recommendation. Mrs. Hansen's suspected small bowel obstruction resolved and the ventricular response rates to her atrial fibrillation appeared to have stabilized, until early on 02/08/2017 when the ventricular response rate was again noted to be rapid. The plan will be to proceed with permanent pacemaker implantation, as previously described. Her INR was too elevated to perform the procedure yesterday and today at 2.66, so the plan will be to implant the permanent pacemaker in this Sunday (2016). Naturally, would place on IV heparin to bridge to surgery when her INR becomes low therapeutic. I did update the situation with the patient's son last evening. Continue telemetry? Yes
[2017-02-09 16:15] VITALS: BP 110/70
[2017-02-09 22:37] VITALS: BP 100/70
[2017-02-10 08:18] LABS: PT 27.5 SEC (9.4-12.5)
[2017-02-10 08:25] LABS: ABSOLUTE BASOPHIL COUNT 0 /CUMM (0.0-0.2); ABSOLUTE EOSINOPHIL COUNT 0.1 /CUMM (0.0-0.7); ABSOLUTE GRANULOCYTE CT 6.5 /CUMM (1.4-6.5); ABSOLUTE MONOCYTE COUNT 0.8 /CUMM (0.10-0.60); BASOPHIL % 0.1 % (0.0-2.0); EOSINOPHIL % 1.5 % (0-5); GRANULOCYTE % 77.4 % (42.2-75.2); MEAN CORPUSCULAR HGB 28.7 PG (27.0-31.0); MEAN CORPUSCULAR HGB CONC 31.8 G/DL (33.0-37.0); MEAN CORPUSCULAR VOLUME 90.3 FL (81.0-99.0); MEAN PLATELET VOLUME 9.3 FL (7.4-10.4); PLATELET COUNT 184 /CUMM (130-400); RBC DISTRIBUTION WIDTH 16.2 % (11.5-14.5); RED BLOOD CELL CT 4.43 /CUMM (4.20-5.40); WHITE BLOOD CELL COUNT 8.4 /CUMM (4.8-10.8)
[2017-02-10 08:57] VITALS: BP 112/52
--- NOTE | 2017-02-10 09:27 | PN- Housestaff ---
ABEL DINH,EH 02/10/1727: Subjective Follow-up For: 1.Mechanical fall 2.Atrial fibrillation 3.Hypothyroidism 4.SBO Subjective: Patient seen and examined. She is seen lying flat in bed restnig comfortably. She appears confused and tired, but in no acute distress. She says she "wants to sleep". She otherwise refused to participate in the interview. Review of symptoms is unobtainable. Review of Systems Constitutional: Reports: see HPI. Objective Last 24 Hrs of Vital Signs/I&O Vital Signs Date Time Temp Pulse Resp B/P B/P Pulse O2 O2 Flow FiO2 Mean Ox Delivery Rate 02/10 1757 106/00 02/10 1703 98.6 105 17 82/66 90 Room Air 02/10 0938 103 109/70 02/10 0857 98.8 93 19 112/52 91 Room Air 02/10 0800 94 Room Air Room Air 02/10 0000 Room Air 02/09 2237 97.2 102 18 100/70 92 Room Air 02/09 2142 101 118/74 Intake & Output 02/10 1600 02/10 0800 02/10 0000 Intake Total 480 60 180 Output Total Balance 480 60 180 Intake, Oral 480 60 180 Physical Exam General Appearance: Alert, No Acute Distress Cardiovascular: Regular Rate, Normal S1, Normal S2, No Murmurs Lungs: Clear to Auscultation, Normal Air Movement Abdomen: Normal Bowel Sounds, No Tenderness Extremities: 2+ bilateral lower extremity edema Current Medications: Current Medications Sig/Liudmila Start time Last Medication Dose Route Stop Time Status Admin Acetaminophen 1,000 MG Q6P PRN 02/04 1300 AC 02/04 IV 2102 Atorvastatin Calcium 10 MG 1700 01/30 1700 AC 02/10 PO 1617 Bisacodyl 5 MG ONE ONE 02/10 1130 DC 02/10 PO 02/10 1131 1230 Diltiazem HCl 240 MG DAILY 02/04 1000 AC 02/10 PO 0937 Docusate Sodium 100 MG BID 02/10 2200 AC PO Docusate Sodium 100 MG BID PRN 02/08 1030 AC PO 02/10 2159 Glycerin 2 SPRAY Q2P PRN 02/01 0745 AC 02/02 PO 0950 Metoprolol Tartrate 25 MG BID 02/04 1000 AC 02/10 PO 0938 Ondansetron HCl 4 MG Q6P PRN 01/31 2030 AC 01/31 IV 2020 Pantoprazole Sodium 40 MG DAILY 02/01 0030 AC 02/10 IV 09 Phenytoin 100 MG BID 02/08 2200 AC 02/10 PO 09 Phytonadione 5 MG ONCE ONE 02/10 1115 DC 02/10 PO 02/10 1116 1230 Polyethylene Glycol 17 GM DAILY 02/08 1022 AC 02/10 PO 0938 Senna 187 MG AT BEDTIME 02/10 2200 AC PO Sodium Chloride 500 ML BOLUS ONE 02/10 1615 DC 02/10 IV 02/10 1714 1617 Last 24 Hrs of Lab/Kurt Results Last 24 Hrs of Labs/Mics: Laboratory Tests 02/10/17 0640: PT 27.5 H, INR 2.64 H, CBC w Diff NO MAN DIFF REQ, RBC 4.43, MCV 90.3, MCH 28.7, RDW 16.2 H, MPV 9.3, Gran % 77.4 H, Lymphocytes % 11.9 L, Monocytes % 9.1, Eosinophils % 1.5, Basophils % 0.1, Absolute Granulocytes 6.5, Absolute Lymphocytes 1.0 L, Absolute Monocytes 0.8 H, Absolute Eosinophils 0.1, Absolute Basophils 0, PUBS MCHC 31.8 L Assessment/Plan Assessment: 87 yo female with PMH of COPD, recent A.fib, hypothyroidism, hyperlipidemia, seizure disorder, possible TIA, PE, and frequent UTI presented with CC of mechanical fall with left knee trauma. Assessment and plan # Atrial fibrillation with RVR Patient's likely scheduled for pacemaker placement on Sunday, INR still elevated today. Patient will be given vitamin K to reverse her supratherapeutic INR in anticipation of the pacemaker placement this Sunday. Continue to follow INR. * Continue Cardizem CD 240 by mouth daily * Continue metoprolol 25 mg twice a day * We will follow cardiology recommendation regard the need for pacemaker #Intestinal obstruction Resolved- tolerating by mouth intake well. An ice abdominal pain, nausea, vomiting. We'll continue to monitor closely. Has had bowel movement yesterday. #Lower and upper extremity edema: * DC all hydration #History of pulmonary embolism * INR therapeutic #History of hypothyroidism * Continue home dose of thyroid tab #Hyperlipidemia * Continue statin #History of seizure disorder * Continue phenytoin Heart healthy DVT PPX IV heparin Full code Problem List: 1. Tachy-lauren syndrome Pain Ratin Pain Location: None Pain Goal: Remain pain free Pain Plan: See assessment Tomorrow's Labs & Rationales: INR Consulting Request: Consulting Specialty: Cardiology Consulting Physician: Bienvenido Garland MD Reason for Consult: a. FIB WITH mukesh ESCALANTE MD,[facility] 02/10/17 1326: Attending MD Review Statement Attending Statement Attending Assessment/Plan: Patient seen and examined. Plan of care discussed with the medical team and the patient. Available lab work and radiology test reports were reviewed. Patient is lying in bed comfortably and denies any new complaints. Her vital signs stable except for sinus tachycardia about 100. implementation lead shows A. fib rate between 01031. Chest exam is clear abdomen soft nontender. CBC is stable. Assessment plan * Ileus improving * A. fib with the rapid ventricular rate * Sick sinus syndrome waiting for pacemaker on Sunday * Agree with giving vitamin K please recheck INR tomorrow.
--- NOTE | 2017-02-10 10:13 | PN- Cardiology ---
Subjective Subjective: * No complaints. * Atrial fibrillation with controlled heart rate this morning. * INR remains elevated. Objective Vital Signs and I&Os Vital Signs Date Time Temp Pulse Resp B/P B/P Pulse O2 O2 Flow FiO2 Mean Ox Delivery Rate 02/10 0938 103 109/70 02/10 0857 98.8 93 19 112/52 91 Room Air 02/10 0000 Room Air 02/09 2237 97.2 102 18 100/70 92 Room Air 02/09 2142 101 118/74 02/09 1615 96.1 108 18 110/70 92 Room Air 02/09 1215 Room Air 02/09 1036 98 130/74 02/09 1032 97.9 98 26 130/74 93 Room Air Intake & Output 02/10 1600 02/10 0800 02/10 0000 02/09 1600 02/09 0800 02/09 0000 Intake Total 60 180 260 100 Output Total Balance 60 180 260 100 Intake, IV 20 Intake, Oral 60 180 240 100 Patient 207 lb Weight Weight Bhargavi Lift Measurement Method Physical Exam: General: WD/ WN female in NAD; alert and oriented x 3 Neck: no JVD Heart: irregularly irregular Lungs: clear bilaterally Extremities: 2+ leg edema bilaterally Assessment/Plan Assessment/Plan * This patient has a plan for permanent pacemaker on Sunday. Please give 5mg PO x 1 dose. Follow INR. Continue telemetry? Yes
[2017-02-10 17:03] VITALS: BP 82/66
--- NOTE | 2017-02-10 17:49 | NUR ---
pt had a 4 second pause and 4.2 second pause. Brandi Flannery and Sanket aware. Patient eating dinner and offers no complaints.
[2017-02-10 17:57] VITALS: BP 106/00
--- NOTE | 2017-02-10 22:15 | NUR ---
PT FOUND TO BE 87-88% ON ROOM AIR AT REST, PLACED ON 2L NC AND O2 SAT CAME UP TO 91%. RESPIRATORY THERAPIST MADE AWARE.
[2017-02-10 22:53] VITALS: BP 112/72
--- NOTE | 2017-02-11 07:09 | PN- Housestaff ---
MANJEET DINH,[facility] 02/11/17 0709: Subjective Follow-up For: 1.Mechanical fall 2.Atrial fibrillation 3.Hypothyroidism 4.SBO Tele-Events Since Last Visit: Rodney mariscal, heart rate between 76 and 97 Subjective: seen and examined this point. She was lying in bed in acute distress, but appeared confused and lethargic. Otherwise remains hemodynamic is stable, vitals within normal limits. Denies pending Review of Systems Constitutional: Reports: see HPI. Objective Last 24 Hrs of Vital Signs/I&O Vital Signs Date Time Temp Pulse Resp B/P B/P Pulse O2 O2 Flow FiO2 Mean Ox Delivery Rate 02/11 0000 93 Nasal 2.0L Cannula 02/10 2253 98.0 104 18 112/72 92 Nasal 2.0L Cannula 02/10 2135 110 110/66 02/10 1757 106/00 02/10 1703 98.6 105 17 82/66 90 Room Air 02/10 0938 103 109/70 02/10 0857 98.8 93 19 112/52 91 Room Air Intake & Output 02/11 1600 02/11 0800 02/11 0000 Intake Total 120 980 Output Total Balance 120 980 Intake, IV 500 Intake, Oral 120 480 Patient 94.347 kg Weight Weight Bhargavi Lift Measurement Method Physical Exam General Appearance: Alert, Oriented X3, Cooperative, No Acute Distress Cardiovascular: Regular Rate, Normal S1, Normal S2 Lungs: Clear to Auscultation, Normal Air Movement Extremities: b/l lle edema 3+ Current Medications: Current Medications Sig/Liudmila Start time Last Medication Dose Route Stop Time Status Admin Acetaminophen 1,000 MG Q6P PRN 02/04 1300 AC 02/04 IV 2102 Atorvastatin Calcium 10 MG 1700 05 1700 AC 02/10 PO 1617 Bisacodyl 5 MG ONE ONE 02/10 1130 DC 02/10 PO 02/10 1131 1230 Diltiazem HCl 240 MG DAILY 02/04 1000 AC 02/10 PO 0937 Docusate Sodium 100 MG BID 02/10 2200 AC 02/10 PO 2135 Docusate Sodium 100 MG BID PRN 02/08 1030 DC PO 02/10 2159 Glycerin 2 SPRAY Q2P PRN 02/01 0745 AC 02/02 PO 0950 Metoprolol Tartrate 25 MG BID 02/04 1000 AC 02/10 PO 2135 Ondansetron HCl 4 MG Q6P PRN 01/31 2030 AC 01/31 IV 202 Pantoprazole Sodium 40 MG DAILY 02/01 0030 AC 02/10 IV 09 Phenytoin 100 MG BID 02/08 2200 AC 02/10 PO 213 Phytonadione 5 MG ONCE ONE 02/10 1115 DC 02/10 PO 02/10 1116 1230 Polyethylene Glycol 17 GM DAILY 02/08 1022 AC 02/10 PO 09 Senna 187 MG AT BEDTIME 02/10 220 AC 02/10 PO 213 Sodium Chloride 500 ML BOLUS ONE 02/10 1615 DC 02/10 IV 02/10 1714 1617 Last 24 Hrs of Lab/Kurt Results Last 24 Hrs of Labs/Mics: Laboratory Tests 02/11/17 0720: PT Pending, INR Pending Assessment/Plan Assessment: 87 yo female with PMH of COPD, recent A.fib, hypothyroidism, hyperlipidemia, seizure disorder, possible TIA, PE, and frequent UTI presented with CC of mechanical fall with left knee trauma. Assessment and plan # Atrial fibrillation with RVR Patient's likely scheduled for pacemaker placement on Sunday, INR still elevated today. Patient will be given vitamin K to reverse her supratherapeutic INR in anticipation of the pacemaker placement this Sunday. Continue to follow INR. * Continue Cardizem CD 240 by mouth daily * Continue metoprolol 25 mg twice a day * We will follow cardiology recommendation regard the need for pacemaker #Intestinal obstruction Resolved- tolerating by mouth intake well. An ice abdominal pain, nausea, vomiting. We'll continue to monitor closely. Has had bowel movement yesterday. #Lower and upper extremity edema: * DC all hydration #History of pulmonary embolism * INR therapeutic #History of hypothyroidism * Continue home dose of thyroid tab #Hyperlipidemia * Continue statin #History of seizure disorder * Continue phenytoin Heart healthy DVT PPX IV heparin Full code Problem List: 1. Tachy-lauren syndrome 2. Weakness 3. Afib Pain Ratin Pain Location: none Pain Goal: Remain pain free Pain Plan: [facility] Tomorrow's Labs & Rationales: inr Consulting Request: Consulting Specialty: Cardiology Consulting Physician: Bienvenido Garland MD Reason for Consult: a. FIB WITH rvr BORIS DINH,JUWAN 02/11/17 1204: Attending MD Review Statement Attending Statement Attending Assessment/Plan: Patient seen and examined. Plan of care discussed with the medical team and the patient. Available lab work and radiology test reports were reviewed. Patient is lying in bed comfortably and denies any new complaints. Chest exam is clear abdomen soft nontender. Vital Signs Date Time Temp Pulse Resp B/P B/P Pulse O2 O2 Flow FiO2 Mean Ox Delivery Rate 02/11 0924 87 112/64 02/11 0828 95.9 87 20 112/64 91 Nasal 2.0L Cannula 02/11 0000 93 Nasal 2.0L Cannula 02/10 2253 98.0 104 18 112/72 92 Nasal 2.0L Cannula 02/10 2135 110 110/66 02/10 1757 106/00 02/10 1703 98.6 105 17 82/66 90 Room Air Intake & Output 02/11 1600 02/11 0800 02/11 0000 Intake Total 120 980 Output Total Balance 120 980 Intake, IV 500 Intake, Oral 120 480 Patient 208 lb Weight Weight Bhargavi Lift Measurement Method Laboratory Tests 02/11 0855 Coagulation PT (9.4 - 12.5 SEC) 17.6 H INR (0.90 - 1.19) 1.68 H Assessment plan * Ileus improving- continue bowel regimen * A. fib with the rapid ventricular rate * Sick sinus syndrome waiting for pacemaker on Sunday; INR is 1 per 68 * Yesterday patient was on room air and today she is requiring 2 L of oxygen. Patient has no apparent respiratory distress. I believe this likely could be due to positioning and possibly atelectasis. Please start incentive spirometry and obtain a chest x-ray.
[2017-02-11 08:28] VITALS: BP 112/64
--- NOTE | 2017-02-11 10:46 | PN- Cardiology ---
Subjective Subjective: * No complaints. * Atrial fibrillation with intermittent bradycardia Objective Vital Signs and I&Os Vital Signs Date Time Temp Pulse Resp B/P B/P Pulse O2 O2 Flow FiO2 Mean Ox Delivery Rate 02/11 0924 87 112/64 02/11 0828 95.9 87 20 112/64 91 Nasal 2.0L Cannula 02/11 0000 93 Nasal 2.0L Cannula 02/10 2253 98.0 104 18 112/72 92 Nasal 2.0L Cannula 02/10 2135 110 110/66 02/10 1757 106/00 02/10 1703 98.6 105 17 82/66 90 Room Air Intake & Output 02/11 1600 02/11 0800 02/11 0000 02/10 1600 02/10 0800 02/10 0000 Intake Total 120 980 480 60 180 Output Total Balance 120 980 480 60 180 Intake, IV 500 Intake, Oral 120 480 480 60 180 Patient 208 lb Weight Weight Bhargavi Lift Measurement Method Physical Exam: General: WD/ WN female in NAD; alert and oriented x 3 Neck: no JVD Heart: irregularly irregular Lungs: clear bilaterally Extremities: no edema Assessment/Plan Assessment/Plan * This patient has a plan for permanent pacemaker on Sunday. Her INR from today is pending. If elevated then give another 5mg of oral vitamin K and recheck her LFT's. Continue telemetry? Yes
[2017-02-11 11:20] LABS: PT 17.6 SEC (9.4-12.5)
[2017-02-11 15:59] VITALS: BP 110/70
--- NOTE | 2017-02-11 16:43 | RADIOLOGY REPORT ---
EXAMINATION: XR PORTABLE CHEST CLINICAL INFORMATION: Basal crackles. Evaluate for pulmonary edema. COMPARISON: CXR from 02/01/2017. TECHNIQUE: Portable frontal view of the chest was obtained. FINDINGS: Prominent breast tissue overlies lower hemithorax. Bilateral pleural effusions remain small but appear slightly increased in size compared to the prior radiograph. However, the patient was in a more upright position on the prior radiograph. The pulmonary opacity in each lung base probably represents compressive atelectasis. Superimposed pneumonia should be excluded on the basis of clinical criteria. Note that the opacity in the retrocardiac region is slightly increased compared to 02/01/2017. Cardiac silhouette, which is mildly enlarged, is partially obscured by the pleural effusions and bibasilar opacities. There is no cephalization of pulmonary venous flow or interstitial edema. Bones appear diffusely osteoporotic. IMPRESSION: 1. Cardiomegaly without pulmonary edema. 2. Small pleural effusions, and likely bibasilar atelectasis, appear increased compared to 02/01/2017.
[2017-02-11 22:00] VITALS: BP 140/80
--- NOTE | 2017-02-12 09:10 | PN- Housestaff ---
Subjective Follow-up For: Sick sinus syndrome Tele-Events Since Last Visit: Rodney mariscal heart rate between 69-91 Review of Systems Constitutional: Reports: see HPI. Objective Last 24 Hrs of Vital Signs/I&O Vital Signs Date Time Temp Pulse Resp B/P B/P Pulse O2 O2 Flow FiO2 Mean Ox Delivery Rate 02/12 1338 103 22 96/56 92 Nasal 4.0L Cannula 02/12 0736 95 108/60 02/12 0000 Nasal 2.0L Cannula 02/11 2200 98.0 95 18 140/80 92 Nasal 2.0L Cannula 02/11 2157 95 140/80 02/11 1559 98.2 106 20 110/70 91 Intake & Output 02/12 1600 02/12 0800 02/12 0000 Intake Total 240 Output Total Balance 240 Intake, Oral 240 Patient 90.492 kg Weight Weight Bhargavi Lift Measurement Method Physical Exam General Appearance: Alert, Mild Distress Assessment/Plan Assessment: 87 yo female with PMH of COPD, recent A.fib, hypothyroidism, hyperlipidemia, seizure disorder, possible TIA, PE, and frequent UTI presented with CC of mechanical fall with left knee trauma. Assessment and plan # Atrial fibrillation with RVR * Patient status post pacemaker placement this a.m. * Continue Cardizem CD 240 by mouth daily * Continue metoprolol 25 mg twice a day #Intestinal obstruction Resolved- tolerating by mouth intake well. An ice abdominal pain, nausea, vomiting. We'll continue to monitor closely. Has had bowel movement yesterday. #Lower and upper extremity edema: * Lasix on hold secondary to hypotension #History of pulmonary embolism * INR therapeutic #History of hypothyroidism * Due to home dose of levothyroxine #Hyperlipidemia * Continue statin #History of seizure disorder * Continue phenytoin Heart healthy DVT PPX IV heparin Full code Problem List: 1. Hypothyroidism 2. Full code status 3. DVT prophylaxis 4. Tachy-lauren syndrome 5. Atrial fibrillation with RVR Pain Ratin Pain Location: None Pain Goal: Remain pain free Pain Plan: mild pain pathway Tomorrow's Labs & Rationales: CBC INR Consulting Request: Consulting Specialty: Cardiology Consulting Physician: Bienvenido Garland MD Reason for Consult: a. FIB WITH rvr
--- NOTE | 2017-02-12 10:15 | RADIOLOGY REPORT ---
EXAMINATION: XR PORTABLE CHEST CLINICAL INFORMATION: Post pacemaker placement COMPARISON: Previous chest x-ray most recent 02/11/2017 and chest fluoroscopy exam 02/12/2017 TECHNIQUE: Portable AP view of the chest was obtained. FINDINGS: There is a left subclavian single chamber pacemaker in satisfactory position. The cardiac silhouette is enlarged. There is pulmonary venous redistribution, bilateral perihilar airspace disease and pleural effusions. Findings are questionable for CHF. There is no pneumothorax. IMPRESSION: Satisfactory position of left subclavian dual chamber pacemaker. No pneumothorax. Question CHF.
--- NOTE | 2017-02-12 11:47 | RADIOLOGY REPORT ---
EXAMINATION:\H\ \N\XR CHEST CLINICAL INFORMATION: Single chamber cardiac pacemaker insertion COMPARISON: CXR from 02/11/2017 TECHNIQUE: Fluoroscopic imaging of the chest was utilized during cardiac pacemaker insertion. Single AP spot fluoroscopy image of the lower chest is submitted into the electronic picture archive. Fluoroscopic imaging time was 6.9 minutes. Cumulative dose was 101 mGy. FINDINGS: The single submitted fluoroscopic image shows the cardiac pacing lead in its expected position, terminating over the region of the right ventricular apex. IMPRESSION: Fluoroscopic imaging assistance provided to the operating room for single-lead cardiac pacemaker insertion.
--- NOTE | 2017-02-12 11:52 | NUR ---
PHYSICAL THERAPY: Pt RECENTLY ARRIVED BACK TO THE FLOOR FROM O.R. S/P PACEMAKER PLACEMENT. Pt RESTING COMFORTABLY IN BED, FAMILY PRESENT. PER RN, HOLD P.T. TODAY AND F/U APPROPRIAT TOMORROW.
[2017-02-12 13:38] VITALS: BP 96/56
--- NOTE | 2017-02-12 15:25 | PN- Att Addend ---
Attending MD Review Statement Attending Statement Attending MD Statement: examined this patient, discuss w/resident/PA/UNINDENTURED APPRENTICE, agreed w/resident/PA/UNINDENTURED APPRENTICE, discussed with family, reviewed EMR data (avail), discussed w/ nursing, discussed w/case mgmt Attending Assessment/Plan: Laboratory Tests 02/12/17 0645: Total Bilirubin 0.7, Direct Bilirubin 0.4, AST 46 H, ALT 43, Alkaline Phosphatase 191 H, Total Protein 5.9 L, Albumin 2.5 L, TSH 31.700 H, Free T4 0.15 L Vital Signs Date Time Temp Pulse Resp B/P B/P Pulse O2 O2 Flow FiO2 Mean Ox Delivery Rate 02/12 1338 103 22 96/56 92 Nasal 4.0L Cannula 02/12 0736 95 108/60 02/12 0000 Nasal 2.0L Cannula 02/11 2200 98.0 95 18 140/80 92 Nasal 2.0L Cannula 02/11 2157 95 140/80 02/11 1559 98.2 106 20 110/70 91 pt underwent the PPM placement. Will check with cardiology as to when we can restart her anticoagulation and if she will need bridging therapy. Constipation- give her soap enema. Hypothyroidism - TSH very high and FT4 low. would explain the constipation. Restart her thyroid meds. WOuld monitor her closely for now.
[2017-02-12 16:21] VITALS: BP 102/58
--- NOTE | 2017-02-12 18:18 | NUR ---
LATE ENTRY - THIS RN ADMINISTERED A SOAP SUDS ENEMA TO PATIENT AROUND 1400 (PER MD). RESISTANCE TO TUBE MET WHEN TRYING TO PLACE TUBE INTO RECTUM DUE TO LARGE AMOUNT OF STOOL PRESENT. PT COULD NOT "HOLD" ENEMA. DISEMPACTED A SMALL AMOUNT OF STOOL FROM PATIENT. HEMORRHOIDS STARTED TO BLEED SO THIS RN STOPPED DISEMPACTION AND PLACED DULCOLAX SUPPOSITORY. REPORTED EVENT TO DR TRINA BURROUGHS.
[2017-02-13 01:13] VITALS: BP 110/60
--- NOTE | 2017-02-13 07:12 | PN- Housestaff ---
Subjective Follow-up For: Sick sinus syndrome Subjective: Patient seen and examined this morning. She is lying in bed in mild distress, currently on 4 L of nasal cannula oxygen satting in the 90s. Bilateral lower extremity edema worsened, Rectal temp 94, hemodynamically stable, had a bowel movement this AM. No other complaints. Review of Systems Constitutional: Denies: chills, fever. Cardiovascular: Denies: chest pain, palpitations. Respiratory: Reports: short of breath. Denies: cough, sputum production. Gastrointestinal: Denies: abdominal pain, constipation, nausea, vomiting. Objective Last 24 Hrs of Vital Signs/I&O Vital Signs Date Time Temp Pulse Resp B/P B/P Pulse O2 O2 Flow FiO2 Mean Ox Delivery Rate 02/13 0811 98 20 104/70 94 Nasal Cannula 02/13 0113 99.0 101 20 110/60 94 Nasal Cannula 02/13 0000 96 Nasal 4.0L Cannula 02/12 2146 100 100/58 02/12 2049 Nasal 4.0L Cannula 02/12 1621 107 20 102/58 92 02/12 1600 95 Nasal 4.0L Cannula 02/12 1338 103 22 96/56 92 Nasal 4.0L Cannula Intake & Output 02/13 1600 02/13 0800 02/13 0000 Intake Total 200 330 Output Total Balance 200 330 Intake, IV 130 Intake, Oral 200 200 Number 2 Bowel Movements Physical Exam General Appearance: Alert, Oriented X3, Cooperative, No Acute Distress Cardiovascular: Regular Rate, Normal S1, Normal S2, No Murmurs Lungs: bilateral basal crackles Abdomen: Normal Bowel Sounds, Soft, No Tenderness Extremities: bilateral lower extremity edema 3+ Current Medications: Current Medications Sig/Liudmila Start time Last Medication Dose Route Stop Time Status Admin Acetaminophen 1,000 MG .STK-MED ONE 02/12 213 DC IV 02/12 2138 Acetaminophen 1,000 MG Q6P PRN 02/04 1300 AC 02/12 IV 2141 Atorvastatin Calcium 10 MG 1700 05/30 1700 AC 02/12 PO 1824 Bisacodyl 5 MG ONE ONE 02/12 1500 DC 06/ PO 02/12 1501 1823 Bisacodyl 10 MG ONCE ONE 02/12 0845 CAN WI 02/12 0846 Diltiazem HCl 240 MG DAILY 02/04 1000 AC 02/12 PO 1328 Docusate Sodium 100 MG BID 02/10 2200 AC 02/12 PO 2147 Furosemide 20 MG ONCE ONE 02/13 0815 DC IV 02/13 0816 Glycerin 2 SPRAY Q2P PRN 02/01 0745 AC 02/02 PO 0950 Metoprolol Tartrate 25 MG BID 02/04 1000 AC 02/12 PO 2146 Morphine Sulfate 10 MG .STK-MED ONE 02/12 2132 DC IM 02/12 2133 Ondansetron HCl 4 MG Q6P PRN 01/31 2030 AC 01/31 IV 202 Pantoprazole Sodium 40 MG DAILY 02/01 0030 AC 02/12 IV 1328 Phenytoin 100 MG BID 02/08 2200 AC 02/12 PO 2144 Polyethylene Glycol 17 GM DAILY 02/08 1022 AC 02/12 PO 1328 Senna 187 MG AT BEDTIME 02/10 2200 AC 02/12 PO 214 Thyroid 4 GR DAILY 02/12 1525 AC 02/12 PO 1824 Assessment/Plan Assessment: 87 yo female with PMH of COPD, recent A.fib, hypothyroidism, hyperlipidemia, seizure disorder, possible TIA, PE, and frequent UTI presented with CC of mechanical fall with left knee trauma. Assessment and plan # Atrial fibrillation with RVR * Patient status post pacemaker placement yesterday. * Continue Cardizem CD 240 by mouth daily * Continue metoprolol 25 mg twice a day #Intestinal obstruction Resolved- tolerating by mouth intake well. An ice abdominal pain, nausea, vomiting. We'll continue to monitor closely. Has had bowel movement yesterday. #Lower and upper extremity edema: * Lasix was held secondary to hypotension, one dose of IV Lasix 20 mg given today as patient was short of breath, lung exam revealed bilateral basal crackles, will get repeat chest x-ray C for worsening of bilateral pleural effusions. #History of pulmonary embolism * INR pending #History of hypothyroidism * Due to home dose of levothyroxine #Hyperlipidemia * Continue statin #History of seizure disorder * Continue phenytoin Heart healthy DVT PPX IV heparin Full code Problem List: 1. Tachy-lauren syndrome 2. Weakness 3. Dyspnea Pain Ratin Pain Location: None Pain Goal: Remain pain free Pain Plan: [facility] Tomorrow's Labs & Rationales: BeP Consulting Request: Consulting Specialty: Cardiology Consulting Physician: Bienvenido Garland MD Reason for Consult: a. FIB WITH rvr
--- NOTE | 2017-02-13 07:30 | Patient Discharge Instructions ---
Discharge Instructions General Discharge Information You were seen/treated for: Atrial fibrillation with RVR History of urinary tract infections Intestinal obstruction Lower extremity edema History of pulmonary embolism (on warfarin) History of hypothyroidism Hyperlipidemia History of seizure disorder You had these procedures: pACEMAKER PLACEMENT Special Instructions: Coumadin 2.5mg given today, please check INR tomorow and redose per INR. Please check tSH and T4 weekly and cc results to Dr.Song liz rough planer tender and f/u with her in one week. Please follow-up with your primary care physician in one week of discharge Please followed with chair pad maker in 1 week of discharge, you had a pacemaker placed, f/u with chair pad maker is very very important Please Take medications as prescribed Diet Recommended Diet: Heart Healthy, puree honey Activity Activity Self Limited: Yes Other activity limits: As tolerated with assistance Acute Coronary Syndrome Inclusion Criteria At DC or during hospital stay patient has or had the following: ACS DIAGNOSIS No Discharge Core Measures Meds if any: Prescribed or Continued at Discharge Meds if any: NOT Prescribed or Continued at Discharge Congestive Heart Failure Inclusion Criteria At DC or during hospital stay patient has or had the following: CHF DIAGNOSIS No Discharge Core Measures Meds if any: Prescribed or Continued at Discharge Meds if any: NOT Prescribed or Continued at Discharge Cerebrovascular accident Inclusion Criteria At DC or during hospital stay patient has or had the following: CVA/TIA Diagnosis No Discharge Core Measures Meds if any: Prescribed or Continued at Discharge Meds if any: NOT Prescribed or Continued at Discharge Venous thromboembolism Inclusion Criteria VTE Diagnosis No VTE Type NONE VTE Confirmed by (Test) NONE Discharge Core Measures - Per Current guidelines, there needs to be overlap - treatment for the first 5 days of Warfarin therapy. - If discharged on Warfarin prior to 5 days of - overlap therapy, the patient will need to be - assessed for post discharge needs including - *Post discharge parental anticoagulation - *Warfarin and/or parental anticoagulation education - *Follow up date to check INR post discharge At least 5 days overlap therapy as Inpatient No Meds if any: Prescribed or Continued at Discharge Note: Overlap Therapy is Warfarin and Anticoagulant Meds if any: NOT Prescribed or Continued at Discharge Meds if any: NOT Prescribed or Continued at Discharge
[2017-02-13 08:11] VITALS: BP 104/70
--- NOTE | 2017-02-13 08:48 | RADIOLOGY REPORT ---
EXAMINATION: XR PORTABLE CHEST CLINICAL INFORMATION: Worsening pleural effusion. Shortness of breath. Increasing oxygen requirement. COMPARISON: 02/12/2017 TECHNIQUE: Portable frontal view of the chest was obtained. FINDINGS: Left chest wall pacer is unchanged. Cardiac leads overlie the chest. Low lung volumes. Similar appearance of small to moderate bilateral pleural effusions with associated airspace opacity. Central vascular prominence remains. No pneumothorax. The cardiomediastinal silhouette is unchanged, with a calcified aorta. IMPRESSION: Similar appearance of small to moderate bilateral pleural effusions with associated airspace opacity.
--- NOTE | 2017-02-13 10:00 | NUR ---
Received patient at 0900 as transfer from telemetry. Rectal temp upon transfer assessed to be 95.4 (increasing without intervention throughout the day to 97.0.) Patient is lethargic, confused, and hard of hearing. She is asking about letting the dog out, closing the windows, and going to bed while in bed. She opens her eyes to tactile/verbal stimuli but doesn't always answer questions. She is Afib on the monitor 80s-110s. SBP= 100s-110s. On 4 liters nasal cannula satting 94% but sat hard to obtain with cool/clammy/ecchymotic skin. Lungs diminished upon auscultation and no distress/cough noted. Abdomen soft/nontender/obese, hypoactive bowel sounds. Incontinent of bowel/bladder. Yeast to groin/vaginal folds, nystatin powder to be ordered/applied. +3 edema to lower legs. +1 generalized edema, +2 ascites/abdominal edema, LUE +1 edema w/ weeping, paul pads applied to site. Patient frequently oriented to room and given emotional reassurance. Safety maintained.
--- NOTE | 2017-02-13 10:33 | NUR ---
Physical therapy: Patient downgraded from tele to ICU. Will hold PT for now. Will require new PT orders when patient is medically stable. Thank you.
--- NOTE | 2017-02-13 11:05 | PN- Att Addend ---
Attending MD Review Statement Attending Statement Attending MD Statement: examined this patient, discuss w/resident/PA/HOSE SUSPENDER CUTTER, agreed w/resident/PA/HOSE SUSPENDER CUTTER, discussed with family, reviewed EMR data (avail), discussed w/ nursing, discussed w/case mgmt Attending Assessment/Plan: Vital Signs Date Time Temp Pulse Resp B/P B/P Pulse O2 O2 Flow FiO2 Mean Ox Delivery Rate 02/13 0835 94.8 02/13 0811 98 20 104/70 94 Nasal Cannula 02/13 0113 99.0 101 20 110/60 94 Nasal Cannula 02/13 0000 96 Nasal 4.0L Cannula 02/12 2146 100 100/58 02/12 2049 Nasal 4.0L Cannula 02/12 1621 107 20 102/58 92 02/12 1600 95 Nasal 4.0L Cannula 02/12 1338 103 22 96/56 92 Nasal 4.0L Cannula pt seen and examined at bedside. d/w son and daughter at bedside the care plan. Hypothermia- this am , pt was moved to ICU for bearhugger but did not require it as temp came up. If temp stays up by this afternoon we will move her back to floor. Hypothyroidism- changed levo dose to iv and consult endocrine. S/p PPM placement- resume coumadin and will check with cardio if they want to bridge her while her INR is subtherapeutic. Will atleast put her on SC heparin for now till her INR is subtherapeutic. INR pending today. Constipation- had BM today , will cont with miralax daily for now.
[2017-02-13 13:05] LABS: ABSOLUTE BASOPHIL COUNT 0 /CUMM (0.0-0.2); ABSOLUTE EOSINOPHIL COUNT 0 /CUMM (0.0-0.7); ABSOLUTE GRANULOCYTE CT 10.8 /CUMM (1.4-6.5); ABSOLUTE LYMPH COUNT 0.7 /CUMM (1.2-3.4); ABSOLUTE MONOCYTE COUNT 0.7 /CUMM (0.10-0.60); BASOPHIL % 0.1 % (0.0-2.0); EOSINOPHIL % 0.1 % (0-5); HEMATOCRIT 40.9 % (37-47); MEAN CORPUSCULAR HGB 29.2 PG (27.0-31.0); MEAN CORPUSCULAR HGB CONC 32.4 G/DL (33.0-37.0); MEAN PLATELET VOLUME 10.5 FL (7.4-10.4); PLATELET COUNT 207 /CUMM (130-400); RBC DISTRIBUTION WIDTH 16.1 % (11.5-14.5); RED BLOOD CELL CT 4.55 /CUMM (4.20-5.40); WHITE BLOOD CELL COUNT 12.2 /CUMM (4.8-10.8)
[2017-02-13 13:30] LABS: GRANULOCYTE % 88.4 % (42.2-75.2)
--- NOTE | 2017-02-13 13:30 | NUR ---
1200: Noted Patient's blood pressure to have decreased to SBP 80s-90s per the autocuff, including 88/52 @ 1200. 92-94/doppler assessed. 250 cc NS bolus ordered and given @ [address] Wheatley. B/P remaining 90s-100s. Patient is asymptomatic. Unable to attain patient's blood work or IV access. Patient to go downstairs to get PICC line placed per Dr. Wheatley.
--- NOTE | 2017-02-13 14:02 | NUR ---
LATE ENTRY FROM 0900 - WHEN DOING AM ASSESMENT THIS RN FOUND PATIENT TO BE VERY PALE & WITH ICE COLD EXTREMITIES (TOES/FEET HAVING BLUE COLORED AREAS). BP WAS 104/70, HR 98, O2 SAT 94% ON 4LO2NC, RR 20. PT WAS DROWSEY BUT RESPONDING WELL TO VERBAL & TACTILE STIMULATION. ORAL TEMPERATURE COULD NOT BE READ USING DIGITAL THERMOMETER USED ON THIS UNIT. RECTAL TEMPERATURE WAS OBTAINED AND SHOWN TO BE 94.8 DEGREES F, DISPOSABLE ORAL THERMOMETER SHOWED AN ORAL TEMP OF 91.3 DEGREES F. REPORTED FINDINGS TO DR TRINA BURROUGHS & DR JARON ADAME. PT TRANSFERRED AT THIS TIME TO ICU.
--- NOTE | 2017-02-13 15:39 | PN- Cardiology ---
Subjective Subjective: * Patient has become progressively less responsive over the past week and is not currently verbally responsive. * Hypothermia noted. * pacer site is clean, dry and intact without hematoma * stable H/H. No pneumothorax. * very high TSH Objective Vital Signs and I&Os Vital Signs Date Time Temp Pulse Resp B/P B/P Pulse O2 O2 Flow FiO2 Mean Ox Delivery Rate 02/13 1326 Room Air 02/13 0835 94.8 02/13 0811 98 20 104/70 94 Nasal Cannula 02/13 0800 92 Nasal 4.0L Cannula 02/13 0113 99.0 101 20 110/60 94 Nasal Cannula 02/13 0000 96 Nasal 4.0L Cannula 02/12 2146 100 100/58 02/12 2049 Nasal 4.0L Cannula 02/12 1621 107 20 102/58 92 02/12 1600 95 Nasal 4.0L Cannula Intake & Output 02/13 1600 02/13 0800 02/13 0000 02/12 1600 02/12 0800 02/12 0000 Intake Total 599 340 2172 240 Output Total Balance 985 064 9930 240 Intake, IV 130 800 Intake, Oral 200 200 200 240 Number 2 Bowel Movements Patient 200 lb Weight Weight Bhargavi Lift Measurement Method Physical Exam: General: WD/ WN female in NAD; lethargic Neck: no JVD Heart: irregularly irregular Lungs: clear bilaterally Extremities: no edema Assessment/Plan Assessment/Plan * This patient has hypothermia with very elevated TSH that is suggestive of severe hypothyroidism. This is the likely cause of her decreased mental status as well. The patient was not receiving her thyroid supplementation. Would restart levothyroxine and obtain an endocrine consult. * Restart coumadin without bridging. Continue telemetry? Yes
[2017-02-13 16:00] VITALS: BP 110/70
--- NOTE | 2017-02-13 16:54 | NUR ---
Unable to draw AM labs for patient r/t patient's difficulty w/ access and hemolyzed samples. Blood drawn after picc line placed at 1650.
--- NOTE | 2017-02-13 16:59 | ULTRASOUND REPORT ---
CLINICAL HISTORY: This patient is a 87-year-old woman with poor venous access in need of frequent blood draws for management of thyroid storm. PROCEDURES: 1. Real-time ultrasound-guided access into the right brachial vein after documentation of selected vessel patency, and permanent imaging storing in the patient records. 2. Placement of a PICC. PHYSICIANS: Dr. Young (attending). The attending radiologist was present during the procedure and related imaging, and reviewed the report. MEDICATIONS: 5 mL of 1% lidocaine SQ. COMPLICATIONS: None. ESTIMATED BLOOD LOSS: <5 mL. SPECIMENS: None. FLUOROSCOPY TIME: 23 seconds. DOSE AREA PRODUCT: 1.7 Gycm2 DOSE 4.4 mGy. PROCEDURE NOTE: Informed consent was obtained from the patient's daughter prior to the procedure. During this process, the procedure and potential alternatives were explained along with the intended outcome and benefits. The risks of the procedure, including the possibility of an unsuccessful procedure, as well as the risk of not doing the procedure, were discussed. The patient's daughter was given the opportunity to ask questions regarding the procedure and appeared competent to make decisions. A signed consent form documenting this discussion was placed in the medical record. A time-out procedure was performed. MAXIMAL STERILE BARRIER - All elements of maximal sterile barrier technique followed including use of cap, mask, sterile gown, sterile gloves, a sterile full body drape and hand hygiene. Also followed skin preparation with 2% chlorhexidine for cutaneous antisepsis, and sterile ultrasound preparation with sterile gel and probe cover when applicable. ULTRASOUND-GUIDED VASCULAR ACCESS - Ultrasound was used to identify the right brachial vein. The right brachial vein was confirmed to be patent. Real time imaging confirmed needle access into the right brachial vein. An image was saved for permanent recording in PACS. The patient was placed supine on the fluoroscopy table. Prior to prepping the patient, a limited sonogram of the right arm was performed to choose appropriate access, and this arm was prepped and draped in the usual sterile fashion. Venous access was achieved into the right brachial vein using ultrasound and fluoroscopic guidance. The 0.018 measuring wire from the PICC was advanced into the cavoatrial junction. The needle was removed and replaced with the peel away sheath. The intravascular length was measured and the catheter was trimmed to the correct length. The inner dilator was removed and the PICC was advanced over the wire into the cavoatrial junction. The peel away sheath and wire were removed. The catheter was tested successfully and secured to the skin with its tip in the cavoatrial junction. A spot image was taken to document final catheter position. The catheter was sterilely dressed in usual fashion with a Biopatch and a Tegaderm. The patient was transferred to recovery in stable condition. FINDINGS: 1. Patent right brachial vein. No sizable cephalic or basilic vein seen. 2. Successful placement of a 5 Fr double lumen PICC that measures 38 cm in length. IMPRESSION: Successful and uncomplicated placement of a PICC. PLAN: 1. The patient was stable after the procedure and was transferred to the interventional recovery area. The patient will be transferred back to her room in the ICU. 2. The catheter may be used immediately.
--- NOTE | 2017-02-13 16:59 | NUR ---
Patient returned from dual lumen AUBREE PICC line placement at 1620 and tolerated procedure well. Warner placed at this time per Dr. Wheatley's order for closer urine output monitoring. Patient tolerated well. 350 mls of cloudy/yellow urine out with placement. Patient denies complaints.
[2017-02-13 17:23] LABS: PT 14.6 SEC (9.4-12.5)
--- NOTE | 2017-02-13 22:45 | Event Note ---
Event Note Event Note: Brief : Endocrinology recommendations for severe hypothyrodism Situation : Ms Jade belcher was initially admitted for chief complaint of mechanical fall, weakness on January was admitted to telemetry for mechanical fall to rule out ACS, atrial fibrillation with rapid ventricular rate. * Patient was transferred to ICU from telemetry on 02/13/2017. * Apparently patient did not receive her home medication [place] Thyroid 240 mg until the 12 of February since admission i.e 01/29/17. * Intially Surgery was consulted for intestinal obstruction, this was managed nonsurgically with nasogastric tube placement. * The patient continued to remain in atrial fibrillation with variable ventricular response rate, and was deemed to be a candidate for pacemaker placement which was placed on 02/12/2017. * Thyroid functions were checked on 02/12/17 and was found to be 31.7 and free T4 was found to be 0.15. * She was found to be hypothermic was transferred to ICU from telemetry on . * She received 4 g of [place] Thyroid on 02/12/2017, this was the first time she received thyroid medication at this hospital admission and was started on synthyroid 200 mcg * Plan was to consult endocrinology. I touched base with endocrinology. * It was discussed that as the patient did not receive thyroid for quite a bit, the thyroid gland would be hypoactive and we do not want to restart thyroid, at higher doses, rather we want to go start slowly and gradually go up. Plan Case discussed with Dr. telles. We will change Synthyroid 200 g to 100 g daily. We will hold off any additional thyroid supplement for now, other than above. We'll recheck TSH, free T4 and total T3 tomorrow in a.m. Dr. telles to see the patient in a.m. PM cortisol also added.
[2017-02-13 23:30] VITALS: BP 78/50
--- NOTE | 2017-02-14 02:24 | NUR ---
@[id number], PT DROWSY BUT AROUSABLE. ORIENTED TO PERSON ONLY.+PP MARSHAL RADIAL BUT DOPPLER TO LE'S.GEN EDEMA BUT >MARSHAL LE'S (PITTING).SBP LOW AND RANGED 70-80'S DOPPLER.DR. HURTADO AND DR. SAEZ MADE AWARE.IV BOLUS GIVEN VIA RIGHT ARM PICC.SBP INCREASE TO 90'S. HR REMAIN 100'S IN AFIB.ON 4L O2 WITH SATS >91%.HOB ELEVATED.BOLTON INTACT WITH MIN UO.PERINEAL CARE DONE. SKIN COOL TO TOUCH.
[2017-02-14 05:10] LABS: PT 14.2 SEC (9.4-12.5)
[2017-02-14 05:18] LABS: ABSOLUTE BASOPHIL COUNT 0 /CUMM (0.0-0.2); ABSOLUTE EOSINOPHIL COUNT 0 /CUMM (0.0-0.7); ABSOLUTE GRANULOCYTE CT 8.4 /CUMM (1.4-6.5); ABSOLUTE LYMPH COUNT 0.6 /CUMM (1.2-3.4); ABSOLUTE MONOCYTE COUNT 0.8 /CUMM (0.10-0.60); BASOPHIL % 0.2 % (0.0-2.0); EOSINOPHIL % 0.1 % (0-5); GRANULOCYTE % 86.2 % (42.2-75.2); HEMATOCRIT 39.4 % (37-47); MEAN CORPUSCULAR HGB 28.6 PG (27.0-31.0); MEAN CORPUSCULAR HGB CONC 31.4 G/DL (33.0-37.0); MEAN CORPUSCULAR VOLUME 91.1 FL (81.0-99.0); MEAN PLATELET VOLUME 9.6 FL (7.4-10.4); PLATELET COUNT 138 /CUMM (130-400); RBC DISTRIBUTION WIDTH 16.2 % (11.5-14.5); RED BLOOD CELL CT 4.32 /CUMM (4.20-5.40); WHITE BLOOD CELL COUNT 9.7 /CUMM (4.8-10.8)
--- NOTE | 2017-02-14 07:54 | RADIOLOGY REPORT ---
EXAMINATION: XR PORTABLE CHEST CLINICAL INFORMATION: Status post fluid bolus overnight. Reassess pleural effusion. COMPARISON: 02/13/2017 TECHNIQUE: Portable frontal view of the chest was obtained. FINDINGS: Right-sided PICC line remains in place. Left chest wall single-lead pacer is unchanged. Cardiac leads overlie the chest. The lungs are well expanded. No significant change in appearance of small to moderate bilateral pleural effusions with associated airspace opacity. No evidence for edema. No pneumothorax. The cardiomediastinal silhouette is unchanged. IMPRESSION: No significant change in small to moderate bilateral pleural effusions with airspace opacity.
[2017-02-14 08:00] VITALS: BP 136/70
--- NOTE | 2017-02-14 08:00 | NUR ---
REC'D THE PT AWAKE IN BED. PT IS ORIENTED TO SELF AND KNOWS SHE IS IN THE HOSPITAL BUT DOES NOT KNOW WHICH HOSPITAL. UNAWARE OF DATE. MOVES BUE MODERATELY WELL AND MOVES BLE WEAKLY. PT HAS 3+ EDEMA TO THE BLE AND 2+ EDEMA TO THE BUE. LUE NOTED TO HAVE LG AMOUNT WEEPING EDEMA. PT IS IN AN AFIB WITH PVC'S PER THE CRDAIC MONITOR. VERY RARELY ARE THERE ANY PACED BEATS. DRESSING TO LCW FROM PPM PLACEMENT IS CLEAN, DRY AND INTACT. MARSHAL BS ARE CLEAR IN THE MARSHAL UPPER LOBES AND DIMINISHED IN THE LL/RM/RLL. PT IS ON A 4LNC WITH AN O2 SAT OF 95%. ABD IS SOFT WITH NORMOACTIVE BOWEL SOUNDS. BOLTON IN PLACE WITH NEGLIGIBLE URINE OUTPUT. WILL CONTINUE TO MONITOR OUTPUT.
--- NOTE | 2017-02-14 08:38 | Cons- Endocrinology ---
General Information and HPI Consulting Request Date of Consult: 02/14/17 Requested By: ICU team Reason for Consult: management of profound hypothyroidism Source of Information: old records Exam Limitations: patient is nonverbal at this moment. History of Present Illness: 87 yo female with PMH of COPD, hypothyroidism, hyperlipidemia, seizure disorder, possible TIA, pulmonary emoblus, and frequent UTI, who was admitted to after she had a mechanical fall. She was on Gilberts thyroid 240 mg daily prior to admisstion. However, since 2009, her TSH was between < 0.015 and 24. She wasn't put on thyroid medication after she was in the hospital. Patient was found to have bradicardia and tachycardia, she underwent pacer placement. Patient's mental status has been worse. In addition, she was hypothermic. TFT was checked on 02/12-- TSH 31.7 and free T4 was 0.15. Patient was given Gilberts thyroid 4 grams on 02/12 at 6 pm and then Synthroid 200 mcg iv in the morning on 02/13. I was called to see her last night. Repeat TFT this morning showed free T4 0.71, TT3 0.99 and TSH 22.9. Her HR beween 80 and 100. Her T was 96.1. Patient remains nonverbal. Random cortisol was checked on 02/13/2017 and it was 40.4. Allergies/Medications Allergies: Coded Allergies: clarithromycin (N/V PER PT DAUGHTER 01/25/17) nitrofurantoin (N/V 01/25/17) Home Med List: Acetaminophen 325 MG CAPSULE 1 CAP PO PRN PAIN (Reported) Cefuroxime Axetil (Cefuroxime) 500 MG TABLET 1 TAB PO BID uti Diltiazem HCl (Cardizem Cd) 120 MG CAP.ER.24H 360 MG PO DAILY HEART HEALTH Diphenoxylate HCl/Atropine (Lomotil 2.5-0.025 MG Tablet) 2.5 MG-0.025 MG TABLET 1 TAB PO 4 TIMES/DAY PRN diarrhea fifteen...[id number] Furosemide 40 MG TABLET 1 TAB PO DAILY NEEDED PRN DIURETIC (Reported) Metoprolol Tartrate 25 MG TABLET 1 TAB PO BID HEART/BP (Reported) Metoprolol Tartrate 25 MG TABLET 12.5 MG PO BID HEART HEALTH Phenytoin (Dilantin) 100 MG CAPSULE 2 CAP PO BID SEIZURES (Reported) Simvastatin (Simvastatin*) 20 MG TABLET 1 TAB PO QPM PREVENTATIVE (Reported) Thyroid,Pork (Gilberts Thyroid) 240 MG TABLET 1 TAB PO DAILY THYROID (Reported) Warfarin Sodium (Coumadin) 2.5 MG TABLET 1 TAB PO 1700 BLOOD THINNER ( Reported) Review of Systems Review of Systems Constitutional: Reports: see HPI (non verbal). Cardiovascular: Reports: see HPI. 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 Home Services at Home: None, INR DRAWAS Primary Language: Luxembourgish Smoking Status: Former Smoker Functional Ability ADLs Independent: dressing, eating, toileting. Needs Assist: bathing. Ambulation: after fall patient has been largely non ambulatory. IADLs Independent: medication admin. Needs Assist: housework, food prep, transportation. Unknown: shopping, finances, telephone. Exam & Diagnostic Data Last 24 Hrs of Vital Signs/I&O Vital Signs Date Time Temp Pulse Resp B/P B/P Pulse O2 O2 Flow FiO2 Mean Ox Delivery Rate 02/14 0402 94 Nasal 4.0L Cannula 02/14 0030 94 Nasal 4.0L Cannula 02/13 2330 96.1 93 20 78/50 93 Nasal 4.0L Cannula 02/13 2221 97.3 114 20 100/62 02/13 2000 94 Nasal 4.0L Cannula 02/13 1600 95 Nasal 4.0L Cannula 02/13 1600 97.0 102 16 110/70 94 Nasal 4.0L Cannula 02/13 1326 Room Air 02/13 1200 104 88/52 02/13 1200 94 Nasal 4.0L Cannula Intake & Output 02/14 1600 02/14 0800 02/14 0000 Intake Total 500 60 Output Total 160 480 Balance 340 -420 Intake, IV 500 Intake, Oral 60 Output, Urine 160 480 Physical Exam General Appearance: lethargic, non verbal Neck: normal inspection Respiratory: decreased breath sounds Cardiovascular: tachycardia (mild) Extremities: swelling Labs/Kurt Results: Laboratory Tests 02/14 02/13 0425 1650 Chemistry Sodium (137 - 145 mmol/L) 139 139 Potassium (3.5 - 5.1 mmol/L) 5.4 H 5.0 Chloride (98 - 107 mmol/L) 110 H 108 H Carbon Dioxide (22 - 30 mmol/L) 22 23 Anion Gap (5 - 16) 7 8 BUN (7 - 17 mg/dL) 40 H 35 H Creatinine (0.5 - 1.0 mg/dL) 0.9 0.8 Estimated GFR (>60 ml/min) 59 L > 60 Glucose (65 - 99 mg/dL) 89 85 Calcium (8.4 - 10.2 mg/dL) 8.3 L 8.2 L Phosphorus (2.5 - 4.5 mg/dL) 4.1 3.8 Magnesium (1.6 - 2.3 mg/dL) 1.8 1.8 Total Bilirubin (0.2 - 1.3 mg/dL) 0.7 0.8 AST (14 - 36 U/L) 27 28 ALT (9 - 52 U/L) 36 43 Albumin (3.5 - 5.0 g/dL) 2.3 L 2.5 L TSH (0.270 - 4.200 uIU/mL) 22.900 H Free T4 (0.85 - 1.93 ng/dL) 0.71 L Total T3 (0.97 - 1.69 ng/mL) 0.99 Cortisol PM Sample (1.7 - 14.1) 40.4 H Coagulation PT (9.4 - 12.5 SEC) 14.2 H 14.6 H INR (0.90 - 1.19) 1.36 H 1.40 H Hematology CBC w Diff NO MAN DIFF REQ WBC (4.8 - 10.8 /CUMM) 9.7 RBC (4.20 - 5.40 /CUMM) 4.32 Hgb (12.0 - 16.0 G/DL) 12.4 Hct (37 - 47 %) 39.4 MCV (81.0 - 99.0 FL) 91.1 MCH (27.0 - 31.0 PG) 28.6 RDW (11.5 - 14.5 %) 16.2 H Plt Count (130 - 400 /CUMM) 138 MPV (7.4 - 10.4 FL) 9.6 Gran % (42.2 - 75.2 %) 86.2 H Lymphocytes % (20.5 - 51.1 %) 5.8 L Monocytes % (1.7 - 9.3 %) 7.7 Eosinophils % (0 - 5 %) 0.1 Basophils % (0.0 - 2.0 %) 0.2 Absolute Granulocytes (1.4 - 6.5 /CUMM) 8.4 H Absolute Lymphocytes (1.2 - 3.4 /CUMM) 0.6 L Absolute Monocytes (0.10 - 0.60 /CUMM) 0.8 H Absolute Eosinophils (0.0 - 0.7 /CUMM) 0 Absolute Basophils (0.0 - 0.2 /CUMM) 0 PUBS MCHC (33.0 - 37.0 G/DL) 31.4 L 02/13 02/12 02/11 1100 0645 0855 Chemistry Sodium Cancelled Potassium Cancelled Chloride Cancelled Carbon Dioxide Cancelled Anion Gap Cancelled BUN Cancelled Creatinine Cancelled Glucose Cancelled Calcium Cancelled Phosphorus Cancelled Magnesium Cancelled Total Bilirubin (0.2 - 1.3 mg/dL) Cancelled 0.7 Direct Bilirubin (< 0.4 mg/dL) 0.4 AST (14 - 36 U/L) Cancelled 46 H ALT (9 - 52 U/L) Cancelled 43 Alkaline Phosphatase (<127 U/L) 191 H Total Protein (6.3 - 8.2 g/dL) 5.9 L Albumin (3.5 - 5.0 g/dL) Cancelled 2.5 L TSH (0.270 - 4.200 uIU/mL) 31.700 H Free T4 (0.85 - 1.93 ng/dL) 0.15 L Coagulation PT (9.4 - 12.5 SEC) Cancelled Cancelled 17.6 H INR (0.90 - 1.19) Cancelled Cancelled 1.68 H Hematology CBC w Diff NO MAN DIFF REQ WBC (4.8 - 10.8 /CUMM) 12.2 H Cancelled RBC (4.20 - 5.40 /CUMM) 4.55 Cancelled Hgb (12.0 - 16.0 G/DL) 13.3 Cancelled Hct (37 - 47 %) 40.9 Cancelled MCV (81.0 - 99.0 FL) 90.0 Cancelled MCH (27.0 - 31.0 PG) 29.2 Cancelled RDW (11.5 - 14.5 %) 16.1 H Cancelled Plt Count (130 - 400 /CUMM) 207 Cancelled MPV (7.4 - 10.4 FL) 10.5 H Cancelled Gran % (42.2 - 75.2 %) 88.4 H Lymphocytes % (20.5 - 51.1 %) 5.4 L Monocytes % (1.7 - 9.3 %) 6.0 Eosinophils % (0 - 5 %) 0.1 Basophils % (0.0 - 2.0 %) 0.1 Absolute Granulocytes (1.4 - 6.5 /CUMM) 10.8 H Absolute Lymphocytes (1.2 - 3.4 /CUMM) 0.7 L Absolute Monocytes (0.10 - 0.60 /CUMM) 0.7 H Absolute Eosinophils (0.0 - 0.7 /CUMM) 0 Absolute Basophils (0.0 - 0.2 /CUMM) 0 PUBS MCHC (33.0 - 37.0 G/DL) 32.4 L Cancelled Assessment/Plan Assessment/Plan 87 yo female with PMH of COPD, hypothyroidism, hyperlipidemia, seizure disorder, possible TIA, pulmonary emoblus, and frequent UTI, who was admitted to after she had a mechanical fall. Patient has been suffering from profound hypothyroidism after thyroid medication wasn't given for approximately for 2 weeks. Plan: 1. recommend Synthroid iv 100 mcg daily for now; 2. monitor free T4 and TSH tomorrow morning again; 3. continue monitoring her vital signs will follow. Consult Acknowledgment - Thank you for your consult request.
--- NOTE | 2017-02-14 09:15 | NUR ---
DR Javed ISSA MADE AWARE THE PT ONLY HAD 5ML OF URINE OUTPUT FROM -. AWAITING FURTHER ORDERS.
--- NOTE | 2017-02-14 11:01 | NUR ---
PT HAD VOIDED 40ML OF VERY CLOUDY LT IVANA URINE AT 1000. GEORGE FRANZ AND MAEGAN AWARE. PT TO RECEIVE ALBUMIN 12.5GM WHEN RECEIVED FROM PHARMACY.
--- NOTE | 2017-02-14 11:05 | PN- Resident CRCU ---
Impression/Plan Plan DVT/Prophylaxis: mechanical, pharmacological Code Status: Full Code
--- NOTE | 2017-02-14 13:33 | PN- Housestaff ---
Subjective Follow-up For: -Sick sinus syndrome -profound hypothyroidism Subjective: Temperature is been stable around 97, hemodynamically stable except one blood pressure drop yesterday at 2330 down to 78/50. Patient is awake, alert and oriented X3. Non-Q overnight were reported. She denies any currently active complaints. Review of Systems Constitutional: Reports: no symptoms. Objective Last 24 Hrs of Vital Signs/I&O Vital Signs Date Time Temp Pulse Resp B/P B/P Pulse O2 O2 Flow FiO2 Mean Ox Delivery Rate 02/14 1014 97.6 89 20 113/75 02/14 0800 95 Nasal 4.0L Cannula 02/14 0800 97.6 96 24 136/70 95 Nasal 4.0L Cannula 02/14 0402 94 Nasal 4.0L Cannula 02/14 0030 94 Nasal 4.0L Cannula 02/13 2330 96.1 93 20 78/50 93 Nasal 4.0L Cannula 02/13 2221 97.3 114 20 100/62 02/13 2000 94 Nasal 4.0L Cannula 02/13 1600 95 Nasal 4.0L Cannula 02/13 1600 97.0 102 16 110/70 94 Nasal 4.0L Cannula Intake & Output 02/14 1600 02/14 0800 02/14 0000 Intake Total 500 60 Output Total 160 480 Balance 340 -420 Intake, IV 500 Intake, Oral 60 Output, Urine 160 480 Physical Exam General Appearance: Alert, Oriented X3, Cooperative, No Acute Distress HEENT: Atraumatic, PERRLA, EOMI, Mucous Membr. moist/pink Cardiovascular: Regular Rate, Normal S1, Normal S2, No Murmurs Lungs: decreased air entry over lung bases bilaterally Abdomen: Soft, No Tenderness Neurological: Normal Speech Extremities: No Clubbing, No Cyanosis, +1 LE edema Current Medications: Current Medications Sig/Liudmila Start time Last Medication Dose Route Stop Time Status Admin Acetaminophen 1,000 MG Q6P PRN 02/04 1300 AC 02/12 IV 2141 Albumin Human 12.5 GM ONCE ONE 02/14 1030 DC 02/14 IV 02/14 1031 1125 Atorvastatin Calcium 10 MG 1700 01/30 1700 AC 02/13 PO 1825 Diltiazem HCl 240 MG DAILY 02/04 1000 AC 02/14 PO 1013 Docusate Sodium 100 MG BID 02/10 2200 AC 02/14 PO 1013 Glycerin 2 SPRAY Q2P PRN 02/01 0745 AC 02/02 PO 0950 Heparin Sodium 5,000 UNIT Q8 02/13 2200 DC (Porcine) SC Heparin Sodium 0 .STK-MED ONE 02/13 1518 DC (Porcine) IV Levothyroxine Sodium 100 MCG DAILY 02/14 1000 DC IV Levothyroxine Sodium 50 MCG DAILY 02/14 1000 DC IV Levothyroxine Sodium 100 MCG DAILY 02/14 1000 AC 02/14 IV 1013 Levothyroxine Sodium 200 MCG DAILY 02/13 1000 DC 02/13 IV 1200 Lidocaine 0 .STK-MED ONE 02/13 1518 DC .ROUTE Metoprolol Tartrate 25 MG BID 02/04 1000 AC 02/14 PO 1014 Nystatin 1 ANUPAM TID PRN 02/13 181 AC TOP Ondansetron HCl 4 MG Q6P PRN 01/31 2030 AC 01/31 IV 202 Pantoprazole Sodium 40 MG DAILY 02/01 0030 AC 02/14 IV 1013 Phenytoin 100 MG BID 02/08 2200 AC 02/14 PO 1013 Polyethylene Glycol 17 GM DAILY 02/08 1022 AC 02/14 PO 1013 Senna 187 MG AT BEDTIME 02/10 2200 AC 02/13 PO 2221 Sodium Chloride 500 ML BOLUS ONE 02/14 0030 DC 02/14 IV 02/14 0129 0025 Warfarin Sodium 4 MG ONCE ONE 02/13 1900 DC 02/13 PO 02/13 Last 24 Hrs of Lab/Kurt Results Last 24 Hrs of Labs/Mics: Laboratory Tests 02/14/17 0425: Anion Gap 7, Estimated GFR 59 L, Glucose 89, Calcium 8.3 L, Phosphorus 4.1, Magnesium 1.8, Total Bilirubin 0.7, AST 27, ALT 36, Albumin 2.3 L, TSH 22.900 H, Free T4 0.71 L, Total T3 0.99, PT 14.2 H, INR 1.36 H, CBC w Diff NO MAN DIFF REQ, RBC 4.32, MCV 91.1, MCH 28.6, RDW 16.2 H, MPV 9.6, Gran % 86.2 H, Lymphocytes % 5.8 L, Monocytes % 7.7, Eosinophils % 0.1, Basophils % 0.2, Absolute Granulocytes 8.4 H, Absolute Lymphocytes 0.6 L, Absolute Monocytes 0.8 H, Absolute Eosinophils 0, Absolute Basophils 0, PUBS MCHC 31.4 L 02/13/17 1650: Anion Gap 8, Estimated GFR > 60, Glucose 85, Calcium 8.2 L, Phosphorus 3.8, Magnesium 1.8, Total Bilirubin 0.8, AST 28, ALT 43, Albumin 2.5 L, Cortisol PM Sample 40.4 H, PT 14.6 H, INR 1.40 H Assessment/Plan Assessment: 87 yo female with PMH of COPD, recent A.fib, hypothyroidism, hyperlipidemia, seizure disorder, possible TIA, PE, and frequent UTI presented with CC of mechanical fall with left knee trauma. Assessment and plan # Atrial fibrillation with RVR * Patient status post pacemaker placement 2 days ago. * Continue Cardizem CD 240 by mouth daily * Continue metoprolol 25 mg twice a day #Intestinal obstruction Resolved- tolerating by mouth intake well. Denies abdominal pain, nausea, or vomiting. We'll continue to monitor closely. She had 2 BM yesterday #Lower and upper extremity edema: * Lasix was held secondary to hypotension. * She has no albumin, she will receive 12.5 mg of albumin. #History of pulmonary embolism * INR this am 1.36 * We will does, then 4 mg daily until she is therapeutic * Cardiology recommended dosing warfarin without bridging with heparin #History of hypothyroidism * Patient did not receive home dose since admission * Patient was found to have bradicardia and tachycardia after she underwent pacer placement. * Endocrinology recommend Synthroid iv 100 mcg daily for now * We'll check free T4 and TSH tomorrow morning #Hyperlipidemia * Continue statin #History of seizure disorder * Continue phenytoin Heart healthy DVT PPX IV heparin Full code Problem List: 1. Tachy-lauren syndrome Pain Ratin Pain Location: legs Pain Goal: Remain pain free Pain Plan: See A&P Tomorrow's Labs & Rationales: See A&P Consulting Request: Consulting Specialty: Cardiology Consulting Physician: Bienvenido Garland MD Reason for Consult: a. FIB WITH rvr
--- NOTE | 2017-02-14 13:57 | PN- Att Addend ---
Attending MD Review Statement Attending Statement Attending MD Statement: examined this patient, discuss w/resident/PA/BALLAST REGULATOR OPERATOR, agreed w/resident/PA/BALLAST REGULATOR OPERATOR, reviewed EMR data (avail), discussed w/nursing Attending Assessment/Plan: Laboratory Tests 02/14/17 0425: Anion Gap 7, Estimated GFR 59 L, Glucose 89, Calcium 8.3 L, Phosphorus 4.1, Magnesium 1.8, Total Bilirubin 0.7, AST 27, ALT 36, Albumin 2.3 L, TSH 22.900 H, Free T4 0.71 L, Total T3 0.99, PT 14.2 H, INR 1.36 H, CBC w Diff NO MAN DIFF REQ, RBC 4.32, MCV 91.1, MCH 28.6, RDW 16.2 H, MPV 9.6, Gran % 86.2 H, Lymphocytes % 5.8 L, Monocytes % 7.7, Eosinophils % 0.1, Basophils % 0.2, Absolute Granulocytes 8.4 H, Absolute Lymphocytes 0.6 L, Absolute Monocytes 0.8 H, Absolute Eosinophils 0, Absolute Basophils 0, PUBS MCHC 31.4 L 02/13/17 1650: Anion Gap 8, Estimated GFR > 60, Glucose 85, Calcium 8.2 L, Phosphorus 3.8, Magnesium 1.8, Total Bilirubin 0.8, AST 28, ALT 43, Albumin 2.5 L, Cortisol PM Sample 40.4 H, PT 14.6 H, INR 1.40 H Vital Signs Date Time Temp Pulse Resp B/P B/P Pulse O2 O2 Flow FiO2 Mean Ox Delivery Rate 02/14 1014 97.6 89 20 113/75 02/14 0800 95 Nasal 4.0L Cannula 02/14 0800 97.6 96 24 136/70 95 Nasal 4.0L Cannula 02/14 0402 94 Nasal 4.0L Cannula 02/14 0030 94 Nasal 4.0L Cannula 02/13 2330 96.1 93 20 78/50 93 Nasal 4.0L Cannula 02/13 2221 97.3 114 20 100/62 02/13 2000 94 Nasal 4.0L Cannula 02/13 1600 95 Nasal 4.0L Cannula 02/13 1600 97.0 102 16 110/70 94 Nasal 4.0L Cannula pt seen and examined at bedside. Hypothermia- resolved now. likely secondary to hypothyroidism. Will cont with iv levothyroxine . Hypothyroidism- changed levo dose to iv and appreciated endocrine input. S/p PPM placement- resumed coumadin , f/u on INR Hypoalbuminemia and also had low BP last night. her albumin level is 2.3, will give her one dose of iv albumin 25% and see if that keeps her bp up and started her on ensure with meals. She also has b/l LE pitting edema secondary to third spacing. Low urine output- urine output improving this am but urine appears cloudy. If urine does not clear up will send a repeat UA. Will cont to monitor closely for fevers. She may not mount high fevers secondary to her hypothyroid state.
--- NOTE | 2017-02-14 15:16 | NUR ---
DR Javed ISSA NOTIFIED THE PT ONLY HAD 62ML OF VERY CLOUDY URINE VIA THE [facility] FROM 02-14 DESPITE HAVING RECEIVED ALBUMIN 12.5GM AT 1115. ANOTHER ALBUMIN 12.5GM ORDERED-AWAITING DELIVERY FROM PHARMACY. URINE LYTES SENT PER MD ORDER.
[2017-02-14 16:00] VITALS: BP 90/62
[2017-02-14 23:00] VITALS: BP 110/60
[2017-02-15 06:44] LABS: ABSOLUTE BASOPHIL COUNT 0 /CUMM (0.0-0.2); ABSOLUTE EOSINOPHIL COUNT 0.1 /CUMM (0.0-0.7); ABSOLUTE GRANULOCYTE CT 7.5 /CUMM (1.4-6.5); ABSOLUTE LYMPH COUNT 0.7 /CUMM (1.2-3.4); ABSOLUTE MONOCYTE COUNT 1.2 /CUMM (0.10-0.60); BASOPHIL % 0.2 % (0.0-2.0); EOSINOPHIL % 0.5 % (0-5); GRANULOCYTE % 79.5 % (42.2-75.2); HEMATOCRIT 37.1 % (37-47); MEAN CORPUSCULAR HGB 28.6 PG (27.0-31.0); MEAN CORPUSCULAR HGB CONC 31.8 G/DL (33.0-37.0); MEAN CORPUSCULAR VOLUME 89.9 FL (81.0-99.0); MEAN PLATELET VOLUME 9.8 FL (7.4-10.4); PLATELET COUNT 121 /CUMM (130-400); RBC DISTRIBUTION WIDTH 16.9 % (11.5-14.5); RED BLOOD CELL CT 4.13 /CUMM (4.20-5.40); WHITE BLOOD CELL COUNT 9.4 /CUMM (4.8-10.8)
--- NOTE | 2017-02-15 06:49 | NUR ---
RASH WAS NOTED UNDER RIGHT BREAST AND LEFT THIGH. MD ELY HURTADO IS MADE AWARE. MYCOSTATIN CREAM ORDERED. WAITING FOR MED TO COME UP FROM PHARMACY.
[2017-02-15 06:52] LABS: PT 21.7 SEC (9.4-12.5)
[2017-02-15 07:00] VITALS: BP 110/60
--- NOTE | 2017-02-15 07:12 | NUR ---
LOW URINE OUTPUT 50CC. NOT A NEW CONDITION. MD ELY HURTADO WAS MADE AWARE OF THIS AM OUTPUT.
--- NOTE | 2017-02-15 07:25 | PN- Endocrinology ---
Assessment/Plan Assessment: 87 yo female with PMH of COPD, hypothyroidism, hyperlipidemia, seizure disorder, possible TIA, pulmonary emoblus, and frequent UTI, who was admitted to after she had a mechanical fall. Patient has been suffering from profound hypothyroidism after thyroid medication wasn't given for approximately for 2 weeks. Since 02/13/2017, she has been Synthroid intravenously. Clinically, her mental status has been improving. Her HR has been between 90 and 100. Repeat TSH andn free T4 this morning are still pending. Plan: 1. as she is elderly and has had cardiac hx, clinically her mental status and temperature improves, I will decrease Synthroid to 50 mcg iv daily. 2. monitor free T4 and TSH in 2 days to look for a trend. 3. continue the other supportive treatment. will follow. Subjective Subjective: Her mental status is improving. Objective Last 24 Hrs of Vital Signs/I&O Vital Signs Date Time Temp Pulse Resp B/P B/P Pulse O2 O2 Flow FiO2 Mean Ox Delivery Rate 02/15 0000 Nasal 4.0L Cannula 02/14 2300 97.0 90 20 110/60 93 Nasal 4.0L Cannula 02/14 2206 92 20 100/62 02/14 1600 94 Nasal 4.0L Cannula 02/14 1600 96.6 90 20 90/62 94 Nasal 4.0L Cannula 02/14 1014 97.6 89 20 113/75 02/14 0800 95 Nasal 4.0L Cannula 02/14 0800 97.6 96 24 136/70 95 Nasal 4.0L Cannula Intake & Output 02/15 0800 02/15 0000 02/14 1600 Intake Total 980 351 Output Total 100 62 Balance 880 289 Intake, IV 500 101 Intake, Lipid Intake, Oral 480 250 Intake, TPN/PPN Number 1 Bowel Movements Output, Urine 100 62 Results Pertinent Lab/Kurt Results: Laboratory Tests 02/15 02/14 02/14 0500 1956 1450 Chemistry Sodium (137 - 145 mmol/L) 139 Potassium (3.5 - 5.1 mmol/L) 5.5 H Chloride (98 - 107 mmol/L) 109 H Carbon Dioxide (22 - 30 mmol/L) 23 Anion Gap (5 - 16) 8 BUN (7 - 17 mg/dL) 46 H Creatinine (0.5 - 1.0 mg/dL) 1.1 H Estimated GFR (>60 ml/min) 47 L BUN/Creatinine Ratio (7 - 25 %) 41.8 H TSH (0.270 - 4.200 uIU/mL) Pending Free T4 (0.85 - 1.93 ng/dL) Pending Coagulation PT (9.4 - 12.5 SEC) 21.7 H INR (0.90 - 1.19) 2.08 H D-Dimer High Sensitivty Cancelled Hematology CBC w Diff NO MAN DIFF REQ WBC (4.8 - 10.8 /CUMM) 9.4 RBC (4.20 - 5.40 /CUMM) 4.13 L Hgb (12.0 - 16.0 G/DL) 11.8 L Hct (37 - 47 %) 37.1 MCV (81.0 - 99.0 FL) 89.9 MCH (27.0 - 31.0 PG) 28.6 RDW (11.5 - 14.5 %) 16.9 H Plt Count (130 - 400 /CUMM) 121 L MPV (7.4 - 10.4 FL) 9.8 Gran % (42.2 - 75.2 %) 79.5 H Lymphocytes % (20.5 - 51.1 %) 7.2 L Monocytes % (1.7 - 9.3 %) 12.6 H Eosinophils % (0 - 5 %) 0.5 Basophils % (0.0 - 2.0 %) 0.2 Absolute Granulocytes (1.4 - 6.5 /CUMM) 7.5 H Absolute Lymphocytes (1.2 - 3.4 /CUMM) 0.7 L Absolute Monocytes (0.10 - 0.60 /CUMM) 1.2 H Absolute Eosinophils (0.0 - 0.7 /CUMM) 0.1 Absolute Basophils (0.0 - 0.2 /CUMM) 0 PUBS MCHC (33.0 - 37.0 G/DL) 31.8 L Urines Ur Random Creatinine (mg/dL) 140.7 Ur Random Sodium (30 - 90 mmol/L) 16 L Ur Random Potassium (mmol/L) 41.4 Fraction Sodium Excret (<1% %) 0.1
--- NOTE | 2017-02-15 08:18 | PN- Housestaff ---
Subjective Follow-up For: Tachybradycardia syndrome Hypothyroidism Hypoalbuminemia Subjective: Afebrile, hemodynamically stable, saturating well on 4 L nasal cannula. Patient looks sleepy. Patient denies any current active complaints. Patient had a poor urine output overnight. Review of Systems Constitutional: Reports: no symptoms. Objective Last 24 Hrs of Vital Signs/I&O Vital Signs Date Time Temp Pulse Resp B/P B/P Pulse O2 O2 Flow FiO2 Mean Ox Delivery Rate 02/15 0700 97.2 103 16 110/60 94 Nasal 4.0L Cannula 02/15 0000 Nasal 4.0L Cannula 02/14 2300 97.0 90 20 110/60 93 Nasal 4.0L Cannula 02/14 2206 92 20 100/62 02/14 1600 94 Nasal 4.0L Cannula 02/14 1600 96.6 90 20 90/62 94 Nasal 4.0L Cannula 02/14 1014 97.6 89 20 113/75 Intake & Output 02/15 1600 02/15 0800 02/15 0000 Intake Total 980 Output Total 50 100 Balance -50 880 Intake, IV 500 Intake, Lipid Intake, Oral 480 Intake, TPN/PPN Number 1 Bowel Movements Output, Urine 50 100 Patient 83.971 kg Weight Weight Bed scale Measurement Method Physical Exam General Appearance: Alert, Cooperative, mild confusion HEENT: Atraumatic, PERRLA, EOMI, Mucous Membr. moist/pink Cardiovascular: Regular Rate, Normal S1, Normal S2, No Murmurs Lungs: decrease air entry over lung base B/L Abdomen: Soft, No Tenderness Neurological: Normal Speech Extremities: +2 LE edema Current Medications: Current Medications Sig/Liudmila Start time Last Medication Dose Route Stop Time Status Admin Acetaminophen 1,000 MG Q6P PRN 02/04 1300 AC 02/12 IV 2141 Albumin Human 12.5 GM ONCE ONE 02/14 2200 DC 02/14 IV 02/14 2201 2156 Albumin Human 12.5 GM ONCE ONE 02/14 1030 DC 02/14 IV 02/14 1031 1125 Atorvastatin Calcium 10 MG 1700 01/30 1700 AC 02/14 PO 1646 Diltiazem HCl 240 MG DAILY 02/04 1000 AC 02/14 PO 1013 Docusate Sodium 100 MG BID 02/10 2200 AC 02/14 PO 2207 Glycerin 2 SPRAY Q2P PRN 02/01 0745 AC 02/02 PO 0950 Levothyroxine Sodium 100 MCG DAILY 02/14 1000 AC 02/14 IV 1013 Metoprolol Tartrate 25 MG BID 02/04 1000 AC 02/14 PO 2206 Nystatin 1 ANUPAM BID 02/15 0645 02/15 TOP 0716 Nystatin 1 ANUPAM TID PRN 02/13 1815 TOP Ondansetron HCl 4 MG Q6P PRN 01/31 2030 AC 01/31 IV 2021 Pantoprazole Sodium 40 MG DAILY 02/01 0030 AC 02/14 IV 1013 Phenytoin 100 MG BID 02/08 2200 AC 02/14 PO 2207 Polyethylene Glycol 17 GM DAILY 02/08 1022 AC 02/14 PO 1013 Senna 187 MG AT BEDTIME 02/10 2200 AC 02/14 PO 2204 Sodium Chloride 1,000 ML Q13H 02/15 0815 IV Sodium Chloride 250 ML BOLUS ONE 02/14 2245 DC 02/14 IV 02/14 2344 2244 Sodium Chloride 250 ML BOLUS ONE 02/14 1545 DC 02/14 IV 02/14 1644 1615 Warfarin Sodium 4 MG ONCE ONE 02/14 1415 DC 02/14 PO 02/14 1416 1615 Last 24 Hrs of Lab/Kurt Results Last 24 Hrs of Labs/Mics: Laboratory Tests 02/15/17 0500: Anion Gap 8, Estimated GFR 47 L, BUN/Creatinine Ratio 41.8 H, Albumin 2.5 L, Prealbumin 8.0 L, TSH 22.200 H, Free T4 0.82 L, PT 21.7 H, INR 2.08 H, CBC w Diff NO MAN DIFF REQ, RBC 4.13 L, MCV 89.9, MCH 28.6, RDW 16.9 H, MPV 9.8, Gran % 79.5 H, Lymphocytes % 7.2 L, Monocytes % 12.6 H, Eosinophils % 0.5, Basophils % 0.2, Absolute Granulocytes 7.5 H, Absolute Lymphocytes 0.7 L, Absolute Monocytes 1.2 H, Absolute Eosinophils 0.1, Absolute Basophils 0, PUBS MCHC 31.8 L 02/14/17 1956: D-Dimer High Sensitivty Cancelled 02/14/17 1450: Ur Random Creatinine 140.7, Ur Random Sodium 16 L, Ur Random Potassium 41.4, Fraction Sodium Excret 0.1 Assessment/Plan Assessment: 87 yo female with PMH of COPD, recent A.fib, hypothyroidism, hyperlipidemia, seizure disorder, possible TIA, PE, and frequent UTI presented with CC of mechanical fall with left knee trauma. Assessment and plan # Atrial fibrillation with RVR * Patient status post pacemaker placement 3 days ago. * Continue Cardizem CD 240 by mouth daily * Continue metoprolol 25 mg twice a day #Intestinal obstruction Resolved- tolerating by mouth intake well. Denies abdominal pain, nausea, or vomiting. We'll continue to monitor closely. #Lower and upper extremity edema: * Lasix was held secondary to hypotension. #History of pulmonary embolism * INR this am 2.08 * Does warfarin daily #History of hypothyroidism * Patient did not receive home dose since admission * Patient was found to have bradicardia and tachycardia after she underwent pacer placement. * We will decrease Synthroid to IV to 50 MCG daily * We'll check free T4 and TSH after 2 days #Hyperlipidemia * Continue statin #History of seizure disorder * Continue phenytoin #Low urine output * Most likely pre-renal * Continue patient on IV fluid #Hypoalbuminemia * She has low albumin, yesterday she received albumin 12.5 mg in the morning and 25 mg at night. * ensure with meals Heart healthy DVT PPX IV heparin Full code Problem List: 1. Tachy-lauren syndrome Pain Ratin Pain Location: LE Pain Goal: Remain pain free Pain Plan: See A&P Tomorrow's Labs & Rationales: BEP and ICU Consulting Request: Consulting Specialty: Cardiology Consulting Physician: Bienvenido Garland MD Reason for Consult: a. FIB WITH rvr
--- NOTE | 2017-02-15 10:11 | Proc Note Cardiology ---
Cardiology Procedure Procedure Date: 02/12/17 Cardiology Procedure(s): single chamber permanent pacemaker Pre-Operative Diagnosis: tachy-lauren syndrome Post-Operative Diagnosis: same Estimated Blood Loss: scant Anesthesia: Propofol Procedure Findings: History: This patient is an 87 year old female with history of atrial fibrillation who has demonstrated tachy-lauren syndrome with significant pauses. Procedure: This patient was prepped and draped in the usual sterile fashion after having obtained informed consent. She was administered 2 gm of Ancef as prophylaxis against infection. An incision was then made in the left subclavicular space where a pacemaker pocket was dissected out. Access was obtained in the left subclavian vein via the [employer]eldinger techinique and a 7F sheath was placed in the vein. The right ventricular lead was then placed in the right ventricular apex and pacing parameters were checked and confirmed to be good. The sheath was removed and the lead was sewn into place and the pacemaker was then placed in the pocket after attaching both leads. The pacemaker pocket was sutured closed with three layers of absorbable suture. The pacemaker was again tested and the patient was brought to recovery where a chest X-ray and 12 lead ECG were obtained. Pacemaker: Medtronic Advisa MRI safe Pacemaker Model # [id number] with serial # [id number] Ventricular Lead: Model # 5076-58 Serial # [id number] Voltage: 0.7V Current: 1.1mA Impedance: 725 Ohms R wave: 3.1 The patient tolerated this procedure well without complications.
--- NOTE | 2017-02-15 15:27 | PN- Att Addend ---
Attending MD Review Statement Attending Statement Attending MD Statement: examined this patient, discuss w/resident/PA/STAGE RIGGER, agreed w/resident/PA/STAGE RIGGER, reviewed EMR data (avail), discussed w/nursing Attending Assessment/Plan: Laboratory Tests 02/15/17 0500: Laboratory Tests 02/15/17 0500: Anion Gap 8, Estimated GFR 47 L, BUN/Creatinine Ratio 41.8 H, Albumin 2.5 L, Prealbumin 8.0 L, TSH 22.200 H, Free T4 0.82 L, PT 21.7 H, INR 2.08 H, CBC w Diff NO MAN DIFF REQ, RBC 4.13 L, MCV 89.9, MCH 28.6, RDW 16.9 H, MPV 9.8, Gran % 79.5 H, Lymphocytes % 7.2 L, Monocytes % 12.6 H, Eosinophils % 0.5, Basophils % 0.2, Absolute Granulocytes 7.5 H, Absolute Lymphocytes 0.7 L, Absolute Monocytes 1.2 H, Absolute Eosinophils 0.1, Absolute Basophils 0, PUBS MCHC 31.8 L 02/14/171955: D-Dimer High Sensitivty Cancelled Vital Signs Date Time Temp Pulse Resp B/P B/P Pulse O2 O2 Flow FiO2 Mean Ox Delivery Rate 02/15 1016 97.2 103 16 110/60 02/15 0700 97.2 103 16 11060 94 Nasal 4.0L Cannula 02/15 0000 Nasal 4.0L Cannula 02/14 2300 97.0 90 20 110/60 93 Nasal 4.0L Cannula 02/14 2206 92 20 100/62 02/14 1600 94 Nasal 4.0L Cannula 02/14 1600 96.6 90 20 90/62 94 Nasal 4.0L Cannula Anion Gap 8, Estimated GFR 47 L, BUN/Creatinine Ratio 41.8 H, Albumin 2.5 L, Prealbumin 8.0 L, TSH 22.200 H, Free T4 0.82 L, PT 21.7 H, INR 2.08 H, CBC w Diff NO MAN DIFF REQ, RBC 4.13 L, MCV 89.9, MCH 28.6, RDW 16.9 H, MPV 9.8, Gran % 79.5 H, Lymphocytes % 7.2 L, Monocytes % 12.6 H, Eosinophils % 0.5, Basophils % 0.2, Absolute Granulocytes 7.5 H, Absolute Lymphocytes 0.7 L, Absolute Monocytes 1.2 H, Absolute Eosinophils 0.1, Absolute Basophils 0, PUBS MCHC 31.8 L 02/14/171955: D-Dimer High Sensitivty Cancelled Vital Signs Date Time Temp Pulse Resp B/P B/P Pulse O2 O2 Flow FiO2 Mean Ox Delivery Rate 02/15 1016 97.2 103 16 110/60 02/15 0700 97.2 103 16 110/60 94 Nasal 4.0L Cannula 02/15 0000 Nasal 4.0L Cannula 02/14 2300 97.0 90 20 110/60 93 Nasal 4.0L Cannula 02/14 2206 92 20 100/62 02/14 1600 94 Nasal 4.0L Cannula 02/14 1600 96.6 90 20 / 94 Nasal 4.0L Cannula pt seen and examined at bedside. Hypothermia- resolved now. likely secondary to hypothyroidism. Will cont with iv levothyroxine . Decreased dose of iv levothyroxine to 50mcg today on 02/15 . Hypothyroidism- changed levo dose to iv and appreciated endocrine input. on 50mcg iv levothyroxine. S/p PPM placement- resumed coumadin , f/u on INR- therapeutic today at 2.08 on 02.15, hold coumadin tonight. Hypoalbuminemia and fluid overload secondary to third spacing- her albumin level is 2.3, will give her one dose of iv albumin 25% 25 gm again today on 02/15 and give her 40 mg iv lasix after that and see if that improves her edema and urine output and started her on ensure with meals. Low urine output- given albumin and lasix this am , will see how she does. Hyperkalemia- recheck K in am. if cont to be high will give kayexelate. Check dilantin level.
[2017-02-15 16:00] VITALS: BP 106/60
--- NOTE | 2017-02-15 18:19 | PN- Cardiology ---
Subjective Subjective: More awake and alert. Objective Vital Signs and I&Os Vital Signs Date Time Temp Pulse Resp B/P B/P Pulse O2 O2 Flow FiO2 Mean Ox Delivery Rate 02/15 1016 97.2 103 16 110/60 02/15 0800 95 Nasal 4.0L Cannula 02/15 0700 97.2 103 16 110/60 94 Nasal 4.0L Cannula 02/15 0000 Nasal 4.0L Cannula 02/14 2300 97.0 90 20 110/60 93 Nasal 4.0L Cannula 02/14 2206 92 20 100/62 Intake & Output 02/15 1600 02/15 0800 02/15 0000 02/14 1600 02/14 0800 02/14 0000 Intake Total 850 980 351 500 60 Output Total 725 50 100 62 160 480 Balance 125 -50 880 289 340 -420 Intake, IV 250 500 101 500 Intake, Lipid Intake, Oral 600 480 250 60 Intake, TPN/PPN Number 1 Bowel Movements Output, Urine 725 50 100 62 160 480 Patient 185 lb Weight Weight Bed scale Measurement Method Physical Exam: Chronically ill-appearing elderly female in no acute distress. Vital signs: See above. Lungs: Decreased breath sounds bilaterally. Heart: S1, S2 with grade 1/6 systolic murmur. Extremities: Positive edema. Current Medications: Current Medications Sig/Liudmila Start time Last Medication Dose Route Stop Time Status Admin Acetaminophen 1,000 MG Q6P PRN 02/04 1300 AC 02/12 IV 2141 Albumin Human 25 GM ONCE ONE 02/15 1045 DC 02/15 IV 02/15 1046 1137 Albumin Human 12.5 GM ONCE ONE 02/140 DC 02/14 IV 02/14 2201 2156 Atorvastatin Calcium 10 MG 1700 01/30 1700 AC 02/14 PO 1646 Diltiazem HCl 240 MG DAILY 02/04 1000 AC 02/15 PO 1015 Docusate Sodium 100 MG BID 02/10 2200 AC 02/15 PO 1015 Furosemide 40 MG ONCE ONE 02/15 1045 DC 02/15 IV 02/15 1046 1134 Glycerin 2 SPRAY Q2P PRN 02/01 0745 AC 02/02 PO 0950 Levothyroxine Sodium 50 MCG DAILY 02/15 1000 AC 02/15 IV 1027 Levothyroxine Sodium 100 MCG DAILY 02/14 1000 DC 02/14 IV 1013 Metoprolol Tartrate 25 MG BID 02/04 1000 AC 02/15 PO 1016 Nystatin 1 ANUPAM BID 02/15 0645 02/15 TOP 1040 Nystatin 1 ANUPAM TID PRN 02/13 1815 TOP Ondansetron HCl 4 MG Q6P PRN 01/31 2030 AC 01/31 IV 202 Pantoprazole Sodium 40 MG DAILY 02/01 0030 AC 02/15 IV 1016 Phenytoin 100 MG BID 02/08 2200 AC 02/15 PO 1015 Polyethylene Glycol 17 GM DAILY 02/08 1022 AC 02/15 PO 1016 Senna 187 MG AT BEDTIME 02/10 220 AC 02/14 PO 2204 Sodium Chloride 1,000 ML Q13H 02/15 0815 DC 02/15 IV 1016 Sodium Chloride 250 ML BOLUS ONE 02/14 2245 DC 02/14 IV 02/14 2344 2244 Warfarin Sodium 4 MG ONCE ONE 02/15 0930 CAN PO 02/15 0931 Results Last 48 Hrs of Labs/Mics: Laboratory Tests 02/15/17 0500: Anion Gap 8, Estimated GFR 47 L, BUN/Creatinine Ratio 41.8 H, Albumin 2.5 L, Prealbumin 8.0 L, TSH 22.200 H, Free T4 0.82 L, PT 21.7 H, INR 2.08 H, CBC w Diff NO MAN DIFF REQ, RBC 4.13 L, MCV 89.9, MCH 28.6, RDW 16.9 H, MPV 9.8, Gran % 79.5 H, Lymphocytes % 7.2 L, Monocytes % 12.6 H, Eosinophils % 0.5, Basophils % 0.2, Absolute Granulocytes 7.5 H, Absolute Lymphocytes 0.7 L, Absolute Monocytes 1.2 H, Absolute Eosinophils 0.1, Absolute Basophils 0, PUBS MCHC 31.8 L 02/14/17 1956: D-Dimer High Sensitivty Cancelled 02/14/17 1450: Ur Random Creatinine 140.7, Ur Random Sodium 16 L, Ur Random Potassium 41.4, Fraction Sodium Excret 0.1 02/14/17 0425: Anion Gap 7, Estimated GFR 59 L, Glucose 89, Calcium 8.3 L, Phosphorus 4.1, Magnesium 1.8, Total Bilirubin 0.7, AST 27, ALT 36, Albumin 2.3 L, TSH 22.900 H, Free T4 0.71 L, Total T3 0.99, PT 14.2 H, INR 1.36 H, CBC w Diff NO MAN DIFF REQ, RBC 4.32, MCV 91.1, MCH 28.6, RDW 16.2 H, MPV 9.6, Gran % 86.2 H, Lymphocytes % 5.8 L, Monocytes % 7.7, Eosinophils % 0.1, Basophils % 0.2, Absolute Granulocytes 8.4 H, Absolute Lymphocytes 0.6 L, Absolute Monocytes 0.8 H, Absolute Eosinophils 0, Absolute Basophils 0, PUBS MCHC 31.4 L Recent Imaging Studies: CXR (02/14/2017): No significant change in small to moderate bilateral pleural effusions with airspace opacity. Assessment/Plan Assessment/Plan [id number] w/ a hx of tobacco use, COPD, hypothyroidism, HLD, Sz disorder, possible TIA, pul embolism w/ warfarin anticoagulation and remote brief bouts of AF recently hospitalized here (01/12-01/18/2017) w/ AF and RVR who returned to the ED on 01/29/2017 with complaints of diarrhea, weakness, lethargy, and frequent falls while being treated for a UTI with ciprofloxacin. The ventricular response rates to her atrial fibrillation had been very variable suggesting underlying sick sinus syndrome and the plan was to determine if she was an appropriate candidate for a permanent pacemaker so that the rapid ventricular response rates can be adequately treated without her becoming too bradycardic. I discussed the situation with Mrs. Hansen and her son on 01/31/2017 and they agreed with this recommendation. Mrs. Hansen's suspected small bowel obstruction resolved and the ventricular response rates to her atrial fibrillation appeared to have stabilized, until early on 02/08/2017 when the ventricular response rate was again noted to be rapid. As such, she had a permanent pacemaker implantation on 02/12/2017 that was uneventful after having her warfarin held, receiving vitamin K, and being heparin bridged. Unfortunately, and for unclear reasons, thyroid replacement was held and she became significantly hypothyroid with hypothermia. Fortunately, with thyroid replacement she is gradually improving. Continue telemetry? Not applicable
[2017-02-15 21:48] VITALS: BP 90/00
[2017-02-15 22:00] VITALS: BP 98/00
--- NOTE | 2017-02-16 07:22 | PN- Housestaff ---
Subjective Follow-up For: Tachybradycardia syndrome Hypothyroidism Hypoalbuminemia Tele-Events Since Last Visit: Rodney mariscal, heart rate between 60-103 Subjective: She seen and examined this morning. She is lying in bed in no acute distress, remains confused. Her urine output remains low, so does her albumin. Given repeat dose of albumin and Lasix and see how she responds. He enjoyed now has maintained to oral as per endocrinology recommendations. Temperature this morning was 96.8, other vitals stable. Offers no complaints Review of Systems Constitutional: Reports: see HPI. Objective Last 24 Hrs of Vital Signs/I&O Vital Signs Date Time Temp Pulse Resp B/P B/P Pulse O2 O2 Flow FiO2 Mean Ox Delivery Rate 02/16 1001 77 100/58 02/16 0837 94 Nasal 4.0L Cannula 02/16 0800 90 20 100/58 94 Nasal 4.0L Cannula 02/16 0002 96.8 90 24 92 Nasal Cannula 02/16 0000 Nasal 4.0L Cannula 02/15 2223 100 02/15 2200 100 98/00 02/15 2148 110 24 90/00 92 Nasal 4.0L Cannula 02/15 1600 99 Nasal 4.0L Cannula 02/15 1600 96.3 77 18 106/60 99 Nasal 4.0L Cannula Intake & Output 02/16 1600 02/16 0800 02/16 0000 Intake Total Output Total 100 400 Balance -100 -400 Number 1 Bowel Movements Output, Urine 100 400 Patient 95.254 kg Weight Weight Bhargavi Lift Measurement Method Physical Exam General Appearance: Alert, Oriented X3, Cooperative, No Acute Distress Cardiovascular: Regular Rate, Normal S1, Normal S2 Lungs: DECREASED AIR ENTRY BILATERAL Abdomen: Normal Bowel Sounds, Soft, No Tenderness Extremities: BILATERAL LOWER EXTREMITY EDEMA 3+ Current Medications: Current Medications Sig/Liudmila Start time Last Medication Dose Route Stop Time Status Admin Acetaminophen 1,000 MG Q6P PRN 02/04 1300 AC 02/12 IV 2141 Albumin Human 25 GM ONCE ONE 02/16 0930 DC 02/16 IV 02/16 0931 1119 Atorvastatin Calcium 10 MG 1700 / 1700 AC 02/15 PO 1844 Diltiazem HCl 240 MG DAILY 02/04 1000 AC 02/16 PO 1001 Docusate Sodium 100 MG BID 02/10 2200 AC 02/16 PO 1001 Furosemide 40 MG ONCE ONE 02/16 0930 DC 02/16 IV 02/16 0931 1002 Glycerin 2 SPRAY Q2P PRN 02/01 0745 AC 02/02 PO 0950 Levothyroxine Sodium 0.1 MG DAILY AC 02/16 1000 AC 02/16 PO 1119 Levothyroxine Sodium 50 MCG DAILY 02/15 1000 DC 02/15 IV 1027 Metoprolol Tartrate 25 MG BID 02/04 1000 AC 02/16 PO 1001 Nystatin 1 ANUPAM BID 02/15 0645 AC 02/16 TOP 1002 Nystatin 1 ANUPAM TID PRN 02/13 1815 AC TOP Ondansetron HCl 4 MG Q6P PRN 01/31 2030 AC 01/31 IV 2021 Pantoprazole Sodium 40 MG DAILY 02/01 0030 AC 02/16 IV 0925 Phenytoin 100 MG BID 02/08 2200 AC 02/16 PO 1001 Polyethylene Glycol 17 GM DAILY 02/08 1022 AC 02/16 PO 1002 Senna 187 MG AT BEDTIME 02/10 220 AC 02/15 PO 2221 Last 24 Hrs of Lab/Kurt Results Last 24 Hrs of Labs/Mics: Laboratory Tests 02/16/17 0600: Anion Gap 9, Estimated GFR 47 L, BUN/Creatinine Ratio 45.5 H, PT 31.9 H, INR 3.07 H, CBC w Diff NO MAN DIFF REQ, RBC 4.11 L, MCV 90.8, MCH 28.9, RDW 17.1 H, MPV 10.1, Gran % 83.1 H, Lymphocytes % 4.9 L, Monocytes % 11.3 H, Eosinophils % 0.6, Basophils % 0.1, Absolute Granulocytes 9.4 H, Absolute Lymphocytes 0.6 L, Absolute Monocytes 1.3 H, Absolute Basophils 0, PUBS MCHC 31.8 L 02/15/17 2020: Anion Gap 10, Estimated GFR 47 L, BUN/Creatinine Ratio 44.5 H, Phenytoin 23.8 H Assessment/Plan Assessment: 87 yo female with PMH of COPD, recent A.fib, hypothyroidism, hyperlipidemia, seizure disorder, possible TIA, PE, and frequent UTI presented with CC of mechanical fall with left knee trauma. Assessment and plan # Atrial fibrillation with RVR * Patient status post pacemaker placement 4 days ago. * Continue Cardizem CD 240 by mouth daily * Continue metoprolol 25 mg twice a day #Intestinal obstruction Resolved- tolerating by mouth intake well. Denies abdominal pain, nausea, or vomiting. We'll continue to monitor closely. #Lower and upper extremity edema: * Lasix was held secondary to hypotension. #History of pulmonary embolism * INR this am 3.07, holding off todays dose * Dose warfarin daily as per INR #History of hypothyroidism * Patient did not receive home dose since admission * Patient was found to have bradicardia and tachycardia after she underwent pacer placement. * Synthroid change to oral 100 MCG daily * We'll check free T4 and TSH tomorrow #Hyperlipidemia * Continue statin #History of seizure disorder * Continue phenytoin #Low urine output/Hypoalbuminemia * She has low albumin, yesterday she received albumin 12.5 mg in the morning and 25 mg at night along with Lasix 40 mg IV. Urine output improved slightly, will repeat during her albumin and Lasix. * ensure with meals Heart healthy DVT PPX COUMADIN Full code Problem List: 1. Tachy-lauren syndrome 2. Status post placement of cardiac pacemaker Pain Ratin Pain Location: None Pain Goal: Remain pain free Pain Plan: Mild pain pathway Tomorrow's Labs & Rationales: INR BeP CBC Consulting Request: Consulting Specialty: Cardiology Consulting Physician: Bienvenido Garland MD Reason for Consult: a. FIB WITH rvr
[2017-02-16 08:00] VITALS: BP 100/58
[2017-02-16 08:06] LABS: ABSOLUTE BASOPHIL COUNT 0 /CUMM (0.0-0.2); ABSOLUTE GRANULOCYTE CT 9.4 /CUMM (1.4-6.5); ABSOLUTE LYMPH COUNT 0.6 /CUMM (1.2-3.4); ABSOLUTE MONOCYTE COUNT 1.3 /CUMM (0.10-0.60); BASOPHIL % 0.1 % (0.0-2.0); EOSINOPHIL % 0.6 % (0-5); HEMATOCRIT 37.3 % (37-47); MEAN CORPUSCULAR HGB 28.9 PG (27.0-31.0); MEAN CORPUSCULAR HGB CONC 31.8 G/DL (33.0-37.0); MEAN CORPUSCULAR VOLUME 90.8 FL (81.0-99.0); MEAN PLATELET VOLUME 10.1 FL (7.4-10.4); PLATELET COUNT 107 /CUMM (130-400); RBC DISTRIBUTION WIDTH 17.1 % (11.5-14.5); RED BLOOD CELL CT 4.11 /CUMM (4.20-5.40); WHITE BLOOD CELL COUNT 11.3 /CUMM (4.8-10.8)
--- NOTE | 2017-02-16 08:21 | PN- Endocrinology ---
Assessment/Plan Assessment: 87 yo female with PMH of COPD, hypothyroidism, hyperlipidemia, seizure disorder, possible TIA, pulmonary emoblus, and frequent UTI, who was admitted to after she had a mechanical fall. Patient has been suffering from profound hypothyroidism after thyroid medication wasn't given for approximately for 2 weeks. Since 02/13/2017, she has been on Synthroid intravenously. Clinically, her mental status has been improving. Her HR has been between 90 and 100. On 2016, free T4 was 0.82 and TSH was 22.2; free T4 is improving. As per nurse, patient is able to swallow the pills with water. Plan: 1. change Synthroid to 100 mcg po daily; 2. monitor free T4 and TSH again tomorrow. will follow. Subjective Subjective: She is awake. Objective Last 24 Hrs of Vital Signs/I&O Vital Signs Date Time Temp Pulse Resp B/P B/P Pulse O2 O2 Flow FiO2 Mean Ox Delivery Rate 02/16 0002 96.8 90 24 92 Nasal Cannula 02/16 0000 Nasal 4.0L Cannula 02/15 2223 100 02/15 2200 100 98/00 02/15 2148 110 24 90/00 92 Nasal 4.0L Cannula 02/15 1600 99 Nasal 4.0L Cannula 02/15 1600 96.3 77 18 106/60 99 Nasal 4.0L Cannula 02/15 1016 97.2 103 16 110/60 Intake & Output 02/16 1600 02/16 0800 02/16 0000 Intake Total Output Total 100 400 Balance -100 -400 Number 1 Bowel Movements Output, Urine 100 400 Patient 210 lb Weight Weight Bhargavi Lift Measurement Method Results Pertinent Lab/Kurt Results: Laboratory Tests 02/16 Chemistry Sodium (137 - 145 mmol/L) 139 138 Potassium (3.5 - 5.1 mmol/L) 5.1 4.9 Chloride (98 - 107 mmol/L) 108 H 105 Carbon Dioxide (22 - 30 mmol/L) 22 22 Anion Gap (5 - 16) 9 10 BUN (7 - 17 mg/dL) 50 H 49 H Creatinine (0.5 - 1.0 mg/dL) 1.1 H 1.1 H Estimated GFR (>60 ml/min) 47 L 47 L BUN/Creatinine Ratio (7 - 25 %) 45.5 H 44.5 H Coagulation PT Pending INR Pending Hematology CBC w Diff Pending WBC Pending RBC Pending Hgb Pending Hct Pending MCV Pending MCH Pending RDW Pending Plt Count Pending MPV Pending PUBS MCHC Pending Toxicology Phenytoin (10.0 - 20.0 ug/mL) 23.8 H
[2017-02-16 08:26] LABS: PT 31.9 SEC (9.4-12.5)
[2017-02-16 09:10] LABS: GRANULOCYTE % 83.1 % (42.2-75.2)
--- NOTE | 2017-02-16 11:35 | PN- Cardiology ---
Subjective Subjective: Lethargic, but answering questions appropriately. Remains in atrial fibrillation with an acceptable ventricular response. Objective Vital Signs and I&Os Vital Signs Date Time Temp Pulse Resp B/P B/P Pulse O2 O2 Flow FiO2 Mean Ox Delivery Rate 02/16 1001 77 100/58 02/16 0837 94 Nasal 4.0L Cannula 02/16 0800 90 20 100/58 94 Nasal 4.0L Cannula 02/16 0002 96.8 90 24 92 Nasal Cannula 02/16 0000 Nasal 4.0L Cannula 02/15 2223 100 02/15 2200 100 98/00 02/15 2148 110 24 90/00 92 Nasal 4.0L Cannula 02/15 1600 99 Nasal 4.0L Cannula 02/15 1600 96.3 77 18 106/60 99 Nasal 4.0L Cannula Intake & Output 02/16 1600 02/16 0800 02/16 0000 02/15 1600 02/15 0800 02/15 0000 Intake Total 850 980 Output Total 100 400 725 50 100 Balance -100 -400 125 -50 880 Intake, IV 250 500 Intake, Lipid Intake, Oral 600 480 Intake, TPN/PPN Number 1 1 Bowel Movements Output, Urine 100 400 725 50 100 Patient 210 lb 185 lb Weight Weight Bhargavi Lift Bed scale Measurement Method Physical Exam: Chronically ill-appearing elderly female in no acute distress. Vital signs: See above. Lungs: Decreased breath sounds bilaterally. Heart: S1, S2 with grade 1/6 systolic murmur. Extremities: Positive edema. Current Medications: Current Medications Sig/Liudmila Start time Last Medication Dose Route Stop Time Status Admin Acetaminophen 1,000 MG Q6P PRN 02/04 1300 AC 02/12 IV 2141 Albumin Human 25 GM ONCE ONE 02/16 0930 DC 02/16 IV 02/16 0931 1119 Atorvastatin Calcium 10 MG 1700 / 1700 AC 02/15 PO 1844 Diltiazem HCl 240 MG DAILY 02/04 1000 AC 02/16 PO 1001 Docusate Sodium 100 MG BID 02/10 2200 AC 02/16 PO 1001 Furosemide 40 MG ONCE ONE 02/16 0930 DC 02/16 IV 02/16 0931 1002 Glycerin 2 SPRAY Q2P PRN 02/01 0745 AC 02/02 PO 0950 Levothyroxine Sodium 0.1 MG DAILY AC 02/16 1000 AC 02/16 PO 1119 Levothyroxine Sodium 50 MCG DAILY 02/15 1000 DC 02/15 IV 1027 Metoprolol Tartrate 25 MG BID 02/04 1000 AC 02/16 PO 1001 Nystatin 1 ANUPAM BID 02/15 0645 02/16 TOP 1002 Nystatin 1 ANUPAM TID PRN 02/13 1815 TOP Ondansetron HCl 4 MG Q6P PRN 01/31 2030 AC 01/31 IV 202 Pantoprazole Sodium 40 MG DAILY 02/01 0030 AC 02/16 IV 0925 Phenytoin 100 MG BID 02/08 220 AC 02/16 PO 1001 Polyethylene Glycol 17 GM DAILY 02/08 1022 AC 02/16 PO 1002 Senna 187 MG AT BEDTIME 02/10 2200 AC 02/15 PO 2221 Results Last 48 Hrs of Labs/Mics: Laboratory Tests 02/16/17 0600: Anion Gap 9, Estimated GFR 47 L, BUN/Creatinine Ratio 45.5 H, PT 31.9 H, INR 3.07 H, CBC w Diff NO MAN DIFF REQ, RBC 4.11 L, MCV 90.8, MCH 28.9, RDW 17.1 H, MPV 10.1, Gran % 83.1 H, Lymphocytes % 4.9 L, Monocytes % 11.3 H, Eosinophils % 0.6, Basophils % 0.1, Absolute Granulocytes 9.4 H, Absolute Lymphocytes 0.6 L, Absolute Monocytes 1.3 H, Absolute Basophils 0, PUBS MCHC 31.8 L 02/15/17 2020: Anion Gap 10, Estimated GFR 47 L, BUN/Creatinine Ratio 44.5 H, Phenytoin 23.8 H 02/15/17 0500: Anion Gap 8, Estimated GFR 47 L, BUN/Creatinine Ratio 41.8 H, Albumin 2.5 L, Prealbumin 8.0 L, TSH 22.200 H, Free T4 0.82 L, PT 21.7 H, INR 2.08 H, CBC w Diff NO MAN DIFF REQ, RBC 4.13 L, MCV 89.9, MCH 28.6, RDW 16.9 H, MPV 9.8, Gran % 79.5 H, Lymphocytes % 7.2 L, Monocytes % 12.6 H, Eosinophils % 0.5, Basophils % 0.2, Absolute Granulocytes 7.5 H, Absolute Lymphocytes 0.7 L, Absolute Monocytes 1.2 H, Absolute Eosinophils 0.1, Absolute Basophils 0, PUBS MCHC 31.8 L 02/14/171955: D-Dimer High Sensitivty Cancelled 02/14/17 1450: Ur Random Creatinine 140.7, Ur Random Sodium 16 L, Ur Random Potassium 41.4, Fraction Sodium Excret 0.1 Assessment/Plan Assessment/Plan [id number] w/ a hx of tobacco use, COPD, hypothyroidism, HLD, Sz disorder, possible TIA, pul embolism w/ warfarin anticoagulation and remote brief bouts of AF recently hospitalized here (01/12-01/18/2017) w/ AF and RVR who returned to the ED on 01/29/2017 with complaints of diarrhea, weakness, lethargy, and frequent falls while being treated for a UTI with ciprofloxacin. The ventricular response rates to her atrial fibrillation had been very variable suggesting underlying sick sinus syndrome and the plan was to determine if she was an appropriate candidate for a permanent pacemaker so that the rapid ventricular response rates can be adequately treated without her becoming too bradycardic. I discussed the situation with Mrs. Hansen and her son on 01/31/2017 and they agreed with this recommendation. Mrs. Hansen's suspected small bowel obstruction resolved and the ventricular response rates to her atrial fibrillation appeared to have stabilized, until early on 02/08/2017 when the ventricular response rate was again noted to be rapid. As such, she had a permanent pacemaker implantation on 02/12/2017 that was uneventful after having her warfarin held, receiving vitamin K, and being heparin bridged. Unfortunately, and for unclear reasons, thyroid replacement was held and she became significantly hypothyroid with hypothermia. Fortunately, with thyroid replacement she gradually improved to the point where she was discharged out of the ICU to the telemetry unit. Continue telemetry? Yes
--- NOTE | 2017-02-16 15:18 | PN- Att Addend ---
Attending MD Review Statement Attending Statement Attending MD Statement: examined this patient, discuss w/resident/PA/TRUCK SPOTTER, agreed w/resident/PA/TRUCK SPOTTER, reviewed EMR data (avail), discussed w/nursing, discussed w/ case mgmt Attending Assessment/Plan: Laboratory Tests 02/16/17 0600: Anion Gap 9, Estimated GFR 47 L, BUN/Creatinine Ratio 45.5 H, PT 31.9 H, INR 3.07 H, CBC w Diff NO MAN DIFF REQ, RBC 4.11 L, MCV 90.8, MCH 28.9, RDW 17.1 H, MPV 10.1, Gran % 83.1 H, Lymphocytes % 4.9 L, Monocytes % 11.3 H, Eosinophils % 0.6, Basophils % 0.1, Absolute Granulocytes 9.4 H, Absolute Lymphocytes 0.6 L, Absolute Monocytes 1.3 H, Absolute Basophils 0, PUBS MCHC 31.8 L 02/15/17 2020: Anion Gap 10, Estimated GFR 47 L, BUN/Creatinine Ratio 44.5 H, Phenytoin 23.8 H Vital Signs Date Time Temp Pulse Resp B/P B/P Pulse O2 O2 Flow FiO2 Mean Ox Delivery Rate 02/16 1138 97.7 02/16 1001 77 100/58 02/16 0837 94 Nasal 4.0L Cannula 02/16 0800 90 20 100/58 94 Nasal 4.0L Cannula 02/16 0002 96.8 90 24 92 Nasal Cannula 02/16 0000 Nasal 4.0L Cannula 02/15 2223 100 02/15 2200 100 98/00 02/15 2148 110 24 90/00 92 Nasal 4.0L Cannula 02/15 1600 99 Nasal 4.0L Cannula 02/15 1600 96.3 77 18 106/60 99 Nasal 4.0L Cannula pt seen and examined at bedside. Hypothermia- resolved now. likely secondary to hypothyroidism. Will cont with iv levothyroxine . Decreased dose of iv levothyroxine to 50mcg on 02/15 . Hypothyroidism- changed levo dose to iv and appreciated endocrine input. on 50mcg iv levothyroxine for now. Failed speech evaluation today on 02/16- so cont iv supplementation for now. S/p PPM placement- resumed coumadin , f/u on INR- therapeutic today at 3.07 on 02.16, hold coumadin tonight. Malnutriton- Hypoalbuminemia and fluid overload secondary to third spacing- her albumin level is low suggestive of protein malnutrion, gave her one dose of iv albumin 25% 25 gm on 02/15 and gave her 40 mg iv lasix after that and see if that improves her edema and urine output and started her on ensure with meals. Again given albumin and lasix this am on 02/16. Low urine output- given albumin and lasix this am again on 02/16 , will see how she does. Hyperkalemia- resolved. High dilantin level- holding dilantin today on 02/16. will recheck level in am on 02/17. Encephalopathy secondary to hypothyroidism- improving. Cont to monitor closely Dysphagia- speech following . made her NPO for now. Switched her metoprolol to iv today on 02/16. will hold cardizem and lipitor for now and restart once tolerating po. If fails swallow eval tomorrow on sunday, will d/w family about starting tube feeds given her low albumin.
[2017-02-16 16:09] VITALS: BP 94/00
--- NOTE | 2017-02-16 20:39 | NUR ---
PT IS alert to touch. rectal temp rechek was 95.8 despite it being very hot in room and pt bundled in multiple blankets. Dr.Ajantha Sarkar was updated. pt to be transfereed to ICU
[2017-02-16 21:56] VITALS: BP 84/58
--- NOTE | 2017-02-16 22:03 | NUR ---
PT REMAINING ON FLOOR. BP WAS 84/58 MANUAL, HR 70s-90s. O2 92% 2L DR.AJANTHA HURTADO WAS UPDATED. NO BOLUS FOR NOW. RECHECK IN 30MIN PER ORDERS. PT LETHARGIC BUT RESPONSIVE TO TOUCH.
[2017-02-16 22:34] VITALS: BP 84/60
[2017-02-17 01:00] VITALS: BP 80/48
--- NOTE | 2017-02-17 07:17 | PN- Housestaff ---
MANJEET DINH,[facility] 02/17/17 0717: Subjective Follow-up For: Tachybradycardia syndrome Hypothyroidism Hypoalbuminemia Hypothermia Tele-Events Since Last Visit: Rodney mariscal, heart rate 92-113 Subjective: Patient seen and examined this morning. She is lying in bed in no acute distress. Urine output slightly improved, albumin today pending. Blood pressure overnight systolic ranging from 96-80, remains on 4 L of nasal cannula oxygen satting in the low 90s., Afebrile. Review of Systems Constitutional: Reports: see HPI. Objective Last 24 Hrs of Vital Signs/I&O Vital Signs Date Time Temp Pulse Resp B/P B/P Pulse O2 O2 Flow FiO2 Mean Ox Delivery Rate 02/17 0811 110 20 96/62 91 Nasal 4.0L Cannula 02/17 0740 95.6 90 20 96/62 02/17 0100 96.1 107 20 80/48 91 Nasal Cannula 02/17 0000 95.5 80 16 80/48 02/17 0000 92 Nasal 4.0L Cannula 02/16 2234 95 84/60 02/16 2156 94 20 84/58 92 Nasal 4.0L Cannula 02/16 2140 95.9 02/16 2035 95.8 02/16 1926 96.1 02/16 1651 96.1 02/16 1638 94 Nasal 4.0L Cannula 02/16 1609 104 20 94/00 92 Nasal 4.0L Cannula 02/16 1138 97.7 02/16 1001 77 100/58 Intake & Output 02/17 1600 02/17 0800 02/17 0000 Intake Total 500 0 Output Total 50 300 Balance 450 -300 Intake, IV 500 Intake, Oral 0 0 Number 1 Bowel Movements Output, Urine 50 300 Patient 95.028 kg Weight Weight Bhargavi Lift Measurement Method Physical Exam General Appearance: No Acute Distress Cardiovascular: Regular Rate, Normal S1, Normal S2, No Murmurs Lungs: BILATERAL DECREASED BREATH SOUNDS. Abdomen: Normal Bowel Sounds, Soft, No Tenderness Extremities: BILATERAL LOWER EXTREMITY EDEMA 3+ Current Medications: Current Medications Sig/Liudmila Start time Last Medication Dose Route Stop Time Status Admin Acetaminophen 1,000 MG Q6P PRN 02/04 1300 AC 02/12 IV 2141 Albumin Human 25 GM ONCE ONE 02/16 0930 DC 02/16 IV 02/16 0931 1119 Atorvastatin Calcium 10 MG 1700 01/30 1700 DC 02/15 PO 1844 Diltiazem HCl 240 MG DAILY 02/04 1000 DC 02/16 PO 1001 Docusate Sodium 100 MG BID 02/10 2200 AC 02/16 PO 1001 Furosemide 40 MG ONCE ONE 02/16 0930 DC 02/16 IV 02/16 0931 1002 Glycerin 2 SPRAY Q2P PRN 02/01 0745 AC 02/02 PO 0950 Levothyroxine Sodium 50 MCG DAILY 02/17 1000 AC IV Levothyroxine Sodium 0.1 MG DAILY AC 02/16 1000 DC 02/16 PO 1119 Levothyroxine Sodium 50 MCG DAILY 02/15 1000 DC 02/15 IV 1027 Metoprolol Tartrate 2.5 MG Q6 02/16 1800 AC IV Metoprolol Tartrate 25 MG BID 02/04 1000 DC 02/16 PO 1001 Nystatin 1 ANUPAM BID 02/15 0645 AC 02/16 TOP 2058 Nystatin 1 ANUPAM TID PRN 02/13 1815 AC TOP Ondansetron HCl 4 MG Q6P PRN 01/31 2030 AC 01/31 IV 2021 Pantoprazole Sodium 40 MG DAILY 02/01 0030 AC 02/16 IV 0925 Phenytoin 100 MG BID 02/16 2200 CAN Sodium Chloride 50 ML IV Phenytoin 100 MG BID 02/08 2200 DC 02/16 PO 1001 Polyethylene Glycol 17 GM DAILY 02/08 1022 AC 02/16 PO 1002 Senna 187 MG AT BEDTIME 02/10 2200 AC 02/15 PO 2221 Sodium Chloride 500 ML BOLUS ONE 02/16 2245 DC 02/16 IV 02/16 2344 2248 Last 24 Hrs of Lab/Kurt Results Last 24 Hrs of Labs/Mics: Laboratory Tests 02/17/17 0800: Phenytoin Cancelled 02/17/17 0728: Anion Gap 9, Estimated GFR 47 L, BUN/Creatinine Ratio 45.5 H, Albumin 2.7 L, PT 37.0 H, INR 3.57 H, CBC w Diff Pending, WBC Pending, RBC Pending, Hgb Pending, Hct Pending, MCV Pending, MCH Pending, RDW Pending, Plt Count Pending, MPV Pending, PUBS MCHC Pending, Phenytoin 26.9 H Assessment/Plan Assessment: 87 yo female with PMH of COPD, recent A.fib, hypothyroidism, hyperlipidemia, seizure disorder, possible TIA, PE, and frequent UTI presented with CC of mechanical fall with left knee trauma. Assessment and plan # Atrial fibrillation with RVR * Patient status post pacemaker placement 5 days ago. * Cardizem on hold * Currently on IV metoprolol 2.5 mg every 6 hours pending repeat swallow eval #Intestinal obstruction * Resolved #Lower and upper extremity edema: * Lasix given as needed and as tolerated by blood pressure #History of pulmonary embolism * INR this am 3.57, holding off todays dose * Dose warfarin daily as per INR #History of hypothyroidism * TSH improved we will increase synthroid as per Endo recs * Patient was found to have bradicardia and tachycardia after she underwent pacer placement. * Synthroid IV, will change to by mouth once able to tolerate by mouth intake #Hyperlipidemia * Continue statin #History of seizure disorder * Phenytoin on hold, levels high, will recheck tomoro #Low urine output/Hypoalbuminemia * She has low albumin, yesterday she received albumin 25 mg along with Lasix 40 mg IV. Urine output improved slightly, will repeat during her albumin and Lasix. Heart healthy DVT PPX COUMADIN Full code Problem List: 1. Atrial fibrillation 2. Tachy-lauren syndrome 3. Weakness Pain Ratin Pain Location: NONE Pain Goal: Remain pain free Pain Plan: MPP Tomorrow's Labs & Rationales: INR BEP CBC Consulting Request: Consulting Specialty: Cardiology Consulting Physician: Bienvenido Garalnd MD Reason for Consult: a. FIB WITH rvr CATHY DINH,[facility] 02/17/17 1412: Attending MD Review Statement Attending Statement Attending MD Statement: examined this patient, discuss w/resident/PA/RETAIL OFFICE ASSOCIATE, agreed w/resident/PA/RETAIL OFFICE ASSOCIATE, discussed with family, reviewed EMR data (avail), discussed with nursing, discussed with case mgmt, amended to note Attending Assessment/Plan: patient seen and examined. I reviewed and agree with resident's notes. Currently patient is still aspirating on has been made nothing by mouth again. She is currently extremely lethargic and answers only simple questions. She is afebrile. Blood pressure was borderline. On examination she is not in any acute distress. She is not volume overloaded. We will monitor her over the weekend. Her medications will be continued intravenously as needed. Her oral intake will be readdressed after the weekend.
[2017-02-17 07:57] LABS: ABSOLUTE BASOPHIL COUNT 0 /CUMM (0.0-0.2); ABSOLUTE EOSINOPHIL COUNT 0 /CUMM (0.0-0.7); ABSOLUTE GRANULOCYTE CT 5.6 /CUMM (1.4-6.5); ABSOLUTE LYMPH COUNT 0.5 /CUMM (1.2-3.4); ABSOLUTE MONOCYTE COUNT 0.8 /CUMM (0.10-0.60); BASOPHIL % 0.4 % (0.0-2.0); EOSINOPHIL % 0.5 % (0-5); HEMATOCRIT 35.7 % (37-47); MEAN CORPUSCULAR HGB 28.8 PG (27.0-31.0); MEAN CORPUSCULAR HGB CONC 31.9 G/DL (33.0-37.0); MEAN CORPUSCULAR VOLUME 90.4 FL (81.0-99.0); MEAN PLATELET VOLUME 10.6 FL (7.4-10.4); RED BLOOD CELL CT 3.95 /CUMM (4.20-5.40)
[2017-02-17 08:11] VITALS: BP 96/62
[2017-02-17 09:38] LABS: PLATELET COUNT 92 /CUMM (130-400)
--- NOTE | 2017-02-17 11:47 | PN- Endocrinology ---
Assessment/Plan Assessment: 87 yo female with PMH of COPD, hypothyroidism, hyperlipidemia, seizure disorder, possible TIA, pulmonary emoblus, and frequent UTI, who was admitted to after she had a mechanical fall. Patient has been suffering from profound hypothyroidism after thyroid medication wasn't given for approximately for 2 weeks. Since 02/13/2017, she has been on Synthroid intravenously. Clinically, her mental status has been improving. Her HR has been between 90 and 100. On 2016, free T4 was 0.82 and TSH was 22.2; free T4 is improving. Patient was aspirated yesterday and she was made NPO again. As per nurse, patient was hypotensive this morning. Repeat BP by me at this moment was 108/80. Plan: 1. add-on TSH, free T4 and cortisol level to am lab. 2. continue Levothyroxine 50 mcg iv daily for now; 3. f/u lab 4. nutrition support; repeat swallow evaluation is still pending. With regards to her current thyroid condition, I have discussed with her daughter. Subjective Subjective: Patient appears confused. Objective Last 24 Hrs of Vital Signs/I&O Vital Signs Date Time Temp Pulse Resp B/P B/P Pulse O2 O2 Flow FiO2 Mean Ox Delivery Rate 02/17 0811 110 20 96/62 91 Nasal 4.0L Cannula 02/17 0740 95.6 90 20 96/62 02/17 0100 96.1 107 20 80/48 91 Nasal Cannula 02/17 0000 95.5 80 16 80/48 02/17 0000 92 Nasal 4.0L Cannula 02/16 2234 95 84/60 02/16 2156 94 20 84/58 92 Nasal 4.0L Cannula 02/16 2140 95.9 02/16 2035 95.8 02/16 1926 96.1 02/16 1651 96.1 02/16 1638 94 Nasal 4.0L Cannula 02/16 1609 104 20 94/00 92 Nasal 4.0L Cannula Intake & Output 02/17 1600 02/17 0800 02/17 0000 Intake Total 500 0 Output Total 50 300 Balance 450 -300 Intake, IV 500 Intake, Oral 0 0 Number 1 Bowel Movements Output, Urine 50 300 Patient 210 lb Weight Weight Bhargavi Lift Measurement Method Results Pertinent Lab/Kurt Results: Laboratory Tests 02/17 02/17 0800 0728 Chemistry Sodium (137 - 145 mmol/L) 141 Potassium (3.5 - 5.1 mmol/L) 4.9 Chloride (98 - 107 mmol/L) 108 H Carbon Dioxide (22 - 30 mmol/L) 24 Anion Gap (5 - 16) 9 BUN (7 - 17 mg/dL) 50 H Creatinine (0.5 - 1.0 mg/dL) 1.1 H Estimated GFR (>60 ml/min) 47 L BUN/Creatinine Ratio (7 - 25 %) 45.5 H Albumin (3.5 - 5.0 g/dL) 2.7 L TSH (0.270 - 4.200 uIU/mL) Pending Free T4 (0.85 - 1.93 ng/dL) Pending Coagulation PT (9.4 - 12.5 SEC) 37.0 H INR (0.90 - 1.19) 3.57 H Hematology CBC w Diff NO MAN DIFF REQ WBC (4.8 - 10.8 /CUMM) 7.0 RBC (4.20 - 5.40 /CUMM) 3.95 L Hgb (12.0 - 16.0 G/DL) 11.4 L Hct (37 - 47 %) 35.7 L MCV (81.0 - 99.0 FL) 90.4 MCH (27.0 - 31.0 PG) 28.8 RDW (11.5 - 14.5 %) 17.0 H Plt Count (130 - 400 /CUMM) 92 L MPV (7.4 - 10.4 FL) 10.6 H Gran % (42.2 - 75.2 %) 80.0 H Lymphocytes % (20.5 - 51.1 %) 7.3 L Monocytes % (1.7 - 9.3 %) 11.8 H Eosinophils % (0 - 5 %) 0.5 Basophils % (0.0 - 2.0 %) 0.4 Absolute Granulocytes (1.4 - 6.5 /CUMM) 5.6 Absolute Lymphocytes (1.2 - 3.4 /CUMM) 0.5 L Absolute Monocytes (0.10 - 0.60 /CUMM) 0.8 H Absolute Eosinophils (0.0 - 0.7 /CUMM) 0 Absolute Basophils (0.0 - 0.2 /CUMM) 0 PUBS MCHC (33.0 - 37.0 G/DL) 31.9 L Toxicology Phenytoin (10.0 - 20.0 ug/mL) Cancelled 26.9 H
--- NOTE | 2017-02-17 12:40 | NUR ---
SPOKE WITH SPEECH THERAPY OVER PHONE. INFORMED THEM THAT PT TOO LETHARGIC TO PARTICIPATE WITH SWALLOW EVAL TODAY.
[2017-02-17 15:38] VITALS: BP 100/56
--- NOTE | 2017-02-17 15:55 | PN- Cardiology ---
Subjective Subjective: She is lethargic. No chest pain. No palpitations. No syncope .She remains in atrial fibrillation. Objective Vital Signs and I&Os Vital Signs Date Time Temp Pulse Resp B/P B/P Pulse O2 O2 Flow FiO2 Mean Ox Delivery Rate 02/17 1230 96/60 02/17 0811 110 20 96/62 91 Nasal 4.0L Cannula 02/17 0800 92 Nasal 4.0L Cannula 02/17 0740 95.6 90 20 96/62 02/17 0100 96.1 107 20 80/48 91 Nasal Cannula 02/17 0000 95.5 80 16 80/48 02/17 0000 92 Nasal 4.0L Cannula 02/16 2234 95 84/60 02/16 2156 94 20 84/58 92 Nasal 4.0L Cannula 02/16 2140 95.9 02/16 2035 95.8 02/16 1926 96.1 02/16 1651 96.1 02/16 1638 94 Nasal 4.0L Cannula 02/16 1609 104 20 94/00 92 Nasal 4.0L Cannula Intake & Output 02/17 1600 02/17 0800 02/17 0000 02/16 1600 02/16 0800 02/16 0000 Intake Total 0 500 0 250 Output Total 250 50 300 350 100 400 Balance -250 450 -300 -100 -100 -400 Intake, IV 500 150 Intake, Oral 0 0 0 100 Number 1 1 Bowel Movements Output, Urine 250 50 300 350 100 400 Patient 210 lb 210 lb Weight Weight Bhargavi Lift Bhargavi Lift Measurement Method Physical Exam: Gen: NAD HEENT: normal Lungs: Decreased breath sounds Heart: S1, S2, 1/6 systolic murmur Abdomen: Soft, nontender, no masses Extremities: 2+ edema Neuro: Patient is slightly lethargic. Cranial nerves intact. Current Medications: Current Medications Sig/Liudmila Start time Last Medication Dose Route Stop Time Status Admin Acetaminophen 1,000 MG Q6P PRN 02/04 1300 AC 02/12 IV 2141 Docusate Sodium 100 MG BID 02/10 2200 AC 02/16 PO 1001 Glycerin 2 SPRAY Q2P PRN 02/01 0745 AC 02/02 PO 0950 Levothyroxine Sodium 62.5 MCG DAILY 02/18 1000 AC IV Levothyroxine Sodium 50 MCG DAILY 02/17 1000 DC 02/17 IV 1001 Metoprolol Tartrate 2.5 MG Q6 02/16 1800 AC IV Nystatin 1 ANUPAM BID 02/15 0645 AC 02/17 TOP 1001 Nystatin 1 ANUPAM TID PRN 02/13 1815 AC TOP Ondansetron HCl 4 MG Q6P PRN 01/31 2030 AC 01/31 IV 2020 Pantoprazole Sodium 40 MG DAILY 02/01 0030 AC 02/17 IV 1001 Polyethylene Glycol 17 GM DAILY 02/08 1022 AC 02/16 PO 1002 Senna 187 MG AT BEDTIME 02/10 2200 AC 02/15 PO 2221 Sodium Chloride 500 ML BOLUS ONE 02/16 2245 DC 02/16 IV 02/16 2344 2248 Results Last 48 Hrs of Labs/Mics: Laboratory Tests 02/17/17 0800: Phenytoin Cancelled 02/17/17 0728: Anion Gap 9, Estimated GFR 47 L, BUN/Creatinine Ratio 45.5 H, Albumin 2.7 L, TSH 18.100 H, Free T4 0.75 L, Cortisol AM Sample 38.6 H, PT 37.0 H, INR 3.57 H, CBC w Diff NO MAN DIFF REQ, RBC 3.95 L, MCV 90.4, MCH 28.8, RDW 17.0 H, MPV 10.6 H, Gran % 80.0 H, Lymphocytes % 7.3 L, Monocytes % 11.8 H, Eosinophils % 0.5, Basophils % 0.4, Absolute Granulocytes 5.6, Absolute Lymphocytes 0.5 L, Absolute Monocytes 0.8 H, Absolute Eosinophils 0, Absolute Basophils 0, PUBS MCHC 31.9 L, Phenytoin 26.9 H 02/16/17 0600: Anion Gap 9, Estimated GFR 47 L, BUN/Creatinine Ratio 45.5 H, PT 31.9 H, INR 3.07 H, CBC w Diff NO MAN DIFF REQ, RBC 4.11 L, MCV 90.8, MCH 28.9, RDW 17.1 H, MPV 10.1, Gran % 83.1 H, Lymphocytes % 4.9 L, Monocytes % 11.3 H, Eosinophils % 0.6, Basophils % 0.1, Absolute Granulocytes 9.4 H, Absolute Lymphocytes 0.6 L, Absolute Monocytes 1.3 H, Absolute Basophils 0, PUBS MCHC 31.8 L 02/15/17 2020: Anion Gap 10, Estimated GFR 47 L, BUN/Creatinine Ratio 44.5 H, Phenytoin 23.8 H Assessment/Plan Assessment/Plan Assessment: 1. Atrial fibrillation 2. Hypothyroidism 3. Tachybrady syndrome Plan: * Continue IV metoprolol. Change to po once able to take by mouth medications. * Monitor on telemetry. Continue telemetry? Yes
[2017-02-18 00:32] VITALS: BP 100/78
[2017-02-18 07:29] LABS: PT 36.5 SEC (9.4-12.5)
[2017-02-18 08:21] LABS: ABSOLUTE BASOPHIL COUNT 0 /CUMM (0.0-0.2); ABSOLUTE EOSINOPHIL COUNT 0 /CUMM (0.0-0.7); ABSOLUTE GRANULOCYTE CT 5.7 /CUMM (1.4-6.5); ABSOLUTE LYMPH COUNT 0.6 /CUMM (1.2-3.4); ABSOLUTE MONOCYTE COUNT 0.9 /CUMM (0.10-0.60); BASOPHIL % 0 % (0.0-2.0); EOSINOPHIL % 0.3 % (0-5); GRANULOCYTE % 78.3 % (42.2-75.2); HEMATOCRIT 38.5 % (37-47); MEAN CORPUSCULAR HGB 28.9 PG (27.0-31.0); MEAN CORPUSCULAR HGB CONC 31.7 G/DL (33.0-37.0); MEAN CORPUSCULAR VOLUME 91.2 FL (81.0-99.0); MEAN PLATELET VOLUME 10.5 FL (7.4-10.4); RBC DISTRIBUTION WIDTH 17.7 % (11.5-14.5); RED BLOOD CELL CT 4.23 /CUMM (4.20-5.40); WHITE BLOOD CELL COUNT 7.3 /CUMM (4.8-10.8)
--- NOTE | 2017-02-18 08:39 | PN- Housestaff ---
JARON ADAME 02/18/17 0838: Subjective Follow-up For: Tachybradycardia syndrome Hypothyroidism Hypoalbuminemia Hypothermia Tele-Events Since Last Visit: AWyatt mariscal heart rate in the range of 90-102. Subjective: Patient is seen and examined in the morning, seems a little annoyed as she has been kept nothing by mouth. We will repeat swallow evaluation today. Otherwise she remained afebrile blood pressure stable, saturating more than 92% on 4 L. Urine output improved slightly(450 in the last 24 hours), patient did not get albumin with Lasix yesterday, if urine output still remains low we gave her another dose of albumin with Lasix today(provided blood pressure is stable) Review of Systems Constitutional: Denies: chills, diaphoresis, fever. EENTM: Denies: blurred vision, double vision, visual changes. Cardiovascular: Denies: chest pain, edema, orthopena. Respiratory: Denies: hemoptysis, orthopnea, short of breath. Gastrointestinal: Denies: abdominal pain, bloating, constipation, diarrhea. Genitourinary: Denies: discharge, dysuria, frequency. Musculoskeletal: Denies: back pain, gout, joint pain. Objective Last 24 Hrs of Vital Signs/I&O Vital Signs Date Time Temp Pulse Resp B/P B/P Pulse O2 O2 Flow FiO2 Mean Ox Delivery Rate 02/18 0912 115 16 100/60 92 Nasal 4.0L Cannula 02/18 0600 120 100/60 02/18 0032 96.0 108 20 100/78 92 02/17 2359 120 100/60 02/17 1722 112 100/56 02/17 1600 Nasal 4.0L Cannula 02/17 1538 112 20 100/56 94 Nasal 4.0L Cannula 02/17 1530 96.7 20 17 1230 96/60 Intake & Output 02/18 1600 02/18 0800 02/18 0000 Intake Total Output Total 200 100 Balance -200 -100 Output, Urine 200 100 Patient 206 lb Weight Weight Bhargavi Lift Measurement Method Physical Exam General Appearance: Alert, Oriented X3 Skin: No Rashes, No Breakdown Skin Temp/Moisture Exam: Warm/Dry Cardiovascular: Regular Rate, Normal S1, Normal S2 Lungs: Clear to Auscultation Abdomen: Normal Bowel Sounds, Soft Assessment/Plan Assessment: 87 yo female with PMH of COPD, recent A.fib, hypothyroidism, hyperlipidemia, seizure disorder, possible TIA, PE, and frequent UTI presented with CC of mechanical fall with left knee trauma. Assessment and plan # Atrial fibrillation with RVR * Patient status post pacemaker placement 5 days ago. * Cardizem on hold * Patient is currently nothing by mouth we will continue with IV metoprolol 2.5 mg every 6 hours #Intestinal obstruction * Resolved #Lower and upper extremity edema: * Lasix given as needed and as tolerated by blood pressure #History of pulmonary embolism * INR this am 3.52, holding off todays dose * Dose warfarin daily as per INR #History of hypothyroidism * TSH improved . * Dose of levothyroxine has been increased to IV 62 micrograms daily * Patient was found to have bradicardia and tachycardia after she underwent pacer placement. * Synthroid IV, will change to by mouth once able to tolerate by mouth intake #Hyperlipidemia * Continue statin #History of seizure disorder * Phenytoin on hold, levels high, will recheck tomoro #Low urine output/Hypoalbuminemia * Urine output improved slightly(450 in the last 24 hours), patient did not get albumin with Lasix yesterday, if urine output still remains low we gave her another dose of albumin with Lasix today(provided blood pressure is stable). Patient failed swallow evaluation yesterday, still nothing by mouth. Today patient is more awake and alert we'll try to repeat swallow evaluation today DVT PPX COUMADIN Full code Problem List: 1. Atrial fibrillation Pain Ratin Pain Location: No pain at this time Pain Goal: Pain 4 or less Pain Plan: When necessary Tylenol Tomorrow's Labs & Rationales: BEP and INR tomorrow Consulting Request: Consulting Specialty: Cardiology Consulting Physician: Bienvenido Garland MD Reason for Consult: a. FIB WITH rvr CATHY DINH,[place]PR[place] 02/18/17 1150: Attending MD Review Statement Attending Statement Attending MD Statement: examined this patient, discuss w/resident/PA/ELECTRICAL WORKER, agreed w/resident/PA/ELECTRICAL WORKER, reviewed EMR data (avail), discussed with nursing, discussed with case mgmt, amended to note Attending Assessment/Plan: Patient seen and examined. No issues overnight. No events on telemetry monitoring. Remains in atrial fibrillation. Patient remains lethargic and but less confused today. She had a repeat swallow evaluation that has been upgraded. She remains afebrile and hemodynamically stable. On examination she has no jugular venous distention. Heart sounds are regular. Lungs are clear bilaterally. She does have bilateral pedal edema. Problems: 1. Atrial fibrillation 2. History of pulmonary embolism 3. Poorly controlled hypothyroidism. Synthroid has been resumed per endocrinology recommendations. 4. Seizure disorder Recommendations: -If patient tolerates the diet through today she may be transitioned to oral medications standing tomorrow. - Mobilize patient. -Anticipate discharge in the next 48 hours if she is tolerating oral intake and mental status remained stable. -Dilantin level remains supratherapeutic. Resume once levels are down to normal.
[2017-02-18 08:58] LABS: PLATELET COUNT 107 /CUMM (130-400)
[2017-02-18 09:12] VITALS: BP 100/60
--- NOTE | 2017-02-18 10:24 | PN- Endocrinology ---
Assessment/Plan Assessment: 87 yo female with PMH of COPD, hypothyroidism, hyperlipidemia, seizure disorder, possible TIA, pulmonary emoblus, and frequent UTI, who was admitted to after she had a mechanical fall. Patient has been suffering from profound hypothyroidism after thyroid medication wasn't given for approximately for 2 weeks. Since 02/13/2017, she has been on Synthroid intravenously. Clinically, her mental status has been improving. Her HR has been between 90 and 100. On 2016, free T4 was 0.82 and TSH was 22.2; free T4 is improving. On 02/17/2017, her TSH was 18.1 and free T4 was 0.75. Levothyroxine was increased to 62.5 mcg iv daily. Her HR has been between 100 and 120; BP has been 100/60. Patient was aspirated on 02/16 and she was made NPO again. Repeat swallow evaluation will be done again this morning. Patient feels hungry and would like to eat. Plan: 1. continue Levothyroxine 62.5 mcg iv daily for now; 2. monitor free T4 and TSH on 02/20/2017; 3. monitor vital signs; 4. improve nutrition support. will follow. Subjective Subjective: Patient appears more alert this morning. Objective Last 24 Hrs of Vital Signs/I&O Vital Signs Date Time Temp Pulse Resp B/P B/P Pulse O2 O2 Flow FiO2 Mean Ox Delivery Rate 02/18 0912 115 16 100/60 92 Nasal 4.0L Cannula 02/18 0600 120 100/60 02/18 0032 96.0 108 20 100/78 92 02/17 2359 120 100/60 02/17 1722 112 100/56 02/17 1600 Nasal 4.0L Cannula 02/17 1538 112 20 100/56 94 Nasal 4.0L Cannula 02/17 1530 96.7 20 02/17 1230 96/60 Intake & Output 02/18 1600 02/18 0800 02/18 0000 Intake Total Output Total 200 100 Balance -200 -100 Output, Urine 200 100 Patient 206 lb Weight Weight Bhargavi Lift Measurement Method Results Pertinent Lab/Kurt Results: Laboratory Tests 02/18 06 Chemistry Sodium (137 - 145 mmol/L) 142 Potassium (3.5 - 5.1 mmol/L) 5.0 Chloride (98 - 107 mmol/L) 109 H Carbon Dioxide (22 - 30 mmol/L) 23 Anion Gap (5 - 16) 10 BUN (7 - 17 mg/dL) 53 H Creatinine (0.5 - 1.0 mg/dL) 1.1 H Estimated GFR (>60 ml/min) 47 L BUN/Creatinine Ratio (7 - 25 %) 48.2 H Albumin (3.5 - 5.0 g/dL) 2.9 L Coagulation PT (9.4 - 12.5 SEC) 36.5 H INR (0.90 - 1.19) 3.52 H Hematology CBC w Diff NO MAN DIFF REQ WBC (4.8 - 10.8 /CUMM) 7.3 RBC (4.20 - 5.40 /CUMM) 4.23 Hgb (12.0 - 16.0 G/DL) 12.2 Hct (37 - 47 %) 38.5 MCV (81.0 - 99.0 FL) 91.2 MCH (27.0 - 31.0 PG) 28.9 RDW (11.5 - 14.5 %) 17.7 H Plt Count (130 - 400 /CUMM) 107 L MPV (7.4 - 10.4 FL) 10.5 H Gran % (42.2 - 75.2 %) 78.3 H Lymphocytes % (20.5 - 51.1 %) 8.7 L Monocytes % (1.7 - 9.3 %) 12.7 H Eosinophils % (0 - 5 %) 0.3 Basophils % (0.0 - 2.0 %) 0 L Absolute Granulocytes (1.4 - 6.5 /CUMM) 5.7 Absolute Lymphocytes (1.2 - 3.4 /CUMM) 0.6 L Absolute Monocytes (0.10 - 0.60 /CUMM) 0.9 H Absolute Eosinophils (0.0 - 0.7 /CUMM) 0 Absolute Basophils (0.0 - 0.2 /CUMM) 0 PUBS MCHC (33.0 - 37.0 G/DL) 31.7 L Toxicology Phenytoin (10.0 - 20.0 ug/mL) 21.3 H
--- NOTE | 2017-02-18 10:59 | PN- Cardiology ---
Subjective Subjective: The patient is comfortable. She is upset over being NPO. She remains in atrial fibrillation. No chest pain. No shortness of breath. No palpitations. Objective Vital Signs and I&Os Vital Signs Date Time Temp Pulse Resp B/P B/P Pulse O2 O2 Flow FiO2 Mean Ox Delivery Rate 02/18 0912 115 16 100/60 92 Nasal 4.0L Cannula 02/18 0600 120 100/60 02/18 0032 96.0 108 20 100/78 92 02/17 2359 120 100/60 02/17 1722 112 100/56 02/17 1600 Nasal 4.0L Cannula 02/17 1538 112 20 100/56 94 Nasal 4.0L Cannula 02/17 1530 96.7 20 02/17 1230 96/60 Intake & Output 02/18 1600 02/18 0800 02/18 0000 02/17 1600 02/17 0800 02/17 0000 Intake Total 0 500 0 Output Total 200 100 250 50 300 Balance -200 -100 -250 450 -300 Intake, IV 500 Intake, Oral 0 0 0 Number 1 Bowel Movements Output, Urine 200 100 250 50 300 Patient 206 lb 210 lb Weight Weight Bhargavi Lift Bhargavi Lift Measurement Method Physical Exam: Gen: NAD HEENT: normal Lungs: Decreased breath sounds Heart: S1, S2, 1/6 systolic murmur Abdomen: Soft, nontender, no masses Extremities: 2+ edema Neuro: Patient is slightly lethargic. Cranial nerves intact. Current Medications: Current Medications Sig/Liudmila Start time Last Medication Dose Route Stop Time Status Admin Acetaminophen 1,000 MG Q6P PRN 02/04 1300 AC 02/12 IV 2141 Docusate Sodium 100 MG BID 02/10 2200 AC 02/16 PO 1001 Glycerin 2 SPRAY Q2P PRN 02/01 0745 AC 02/18 PO 1019 Levothyroxine Sodium 62.5 MCG DAILY 02/18 1000 AC 02/18 IV 1035 Levothyroxine Sodium 50 MCG DAILY 02/17 1000 DC 02/17 IV 1001 Metoprolol Tartrate 2.5 MG Q6 02/16 1800 AC 02/18 IV 0600 Nystatin 1 ANUPAM BID 02/15 0645 AC 02/18 TOP 1035 Nystatin 1 ANUPAM TID PRN 02/13 1815 DC TOP Ondansetron HCl 4 MG Q6P PRN 01/31 2030 AC 01/31 IV 202 Pantoprazole Sodium 40 MG DAILY 02/01 0030 AC 02/18 IV 1019 Polyethylene Glycol 17 GM DAILY 02/08 1022 AC 02/16 PO 1002 Senna 187 MG AT BEDTIME 02/10 2200 AC 02/15 PO 2221 Results Last 48 Hrs of Labs/Mics: Laboratory Tests 02/18/17 0607: Anion Gap 10, Estimated GFR 47 L, BUN/Creatinine Ratio 48.2 H, Albumin 2.9 L, PT 36.5 H, INR 3.52 H, CBC w Diff NO MAN DIFF REQ, RBC 4.23, MCV 91.2, MCH 28.9, RDW 17.7 H, MPV 10.5 H, Gran % 78.3 H, Lymphocytes % 8.7 L, Monocytes % 12.7 H, Eosinophils % 0.3, Basophils % 0 L, Absolute Granulocytes 5.7, Absolute Lymphocytes 0.6 L, Absolute Monocytes 0.9 H, Absolute Eosinophils 0, Absolute Basophils 0, PUBS MCHC 31.7 L, Phenytoin 21.3 H 02/17/17 0800: Phenytoin Cancelled 02/17/17 0728: Anion Gap 9, Estimated GFR 47 L, BUN/Creatinine Ratio 45.5 H, Albumin 2.7 L, TSH 18.100 H, Free T4 0.75 L, Cortisol AM Sample 38.6 H, PT 37.0 H, INR 3.57 H, CBC w Diff NO MAN DIFF REQ, RBC 3.95 L, MCV 90.4, MCH 28.8, RDW 17.0 H, MPV 10.6 H, Gran % 80.0 H, Lymphocytes % 7.3 L, Monocytes % 11.8 H, Eosinophils % 0.5, Basophils % 0.4, Absolute Granulocytes 5.6, Absolute Lymphocytes 0.5 L, Absolute Monocytes 0.8 H, Absolute Eosinophils 0, Absolute Basophils 0, PUBS MCHC 31.9 L, Phenytoin 26.9 H Assessment/Plan Assessment/Plan Assessment: 1. Atrial fibrillation 2. Hypothyroidism 3. Tachybrady syndrome Plan: * Continue IV metoprolol. Change to po once able to take by mouth medications. * Monitor on telemetry. Continue telemetry? Yes
--- NOTE | 2017-02-18 12:57 | Cons- Podiatry ---
General Information and HPI Consulting Request Date of Consult: 02/18/17 Requested By: NASRA FRANZ MD History of Present Illness: Ms. Hansen is an 87-year-old female admitted for weakness and associated mechanical fall with an extensive past medical history. The patient was noted on physical exam to have elongated and fungal nails bilaterally. Secondary to the patient's medical status, she is unable to report any history associated with her feet. Allergies/Medications Allergies: Coded Allergies: clarithromycin (N/V PER PT DAUGHTER 01/25/17) nitrofurantoin (N/V 01/25/17) Home Med List: Acetaminophen 325 MG CAPSULE 1 CAP PO PRN PAIN (Reported) Cefuroxime Axetil (Cefuroxime) 500 MG TABLET 1 TAB PO BID uti Diltiazem HCl (Cardizem Cd) 120 MG CAP.ER.24H 360 MG PO DAILY HEART HEALTH Diphenoxylate HCl/Atropine (Lomotil 2.5-0.025 MG Tablet) 2.5 MG-0.025 MG TABLET 1 TAB PO 4 TIMES/DAY PRN diarrhea fifteen...[id number] Furosemide 40 MG TABLET 1 TAB PO DAILY NEEDED PRN DIURETIC (Reported) Metoprolol Tartrate 25 MG TABLET 1 TAB PO BID HEART/BP (Reported) Metoprolol Tartrate 25 MG TABLET 12.5 MG PO BID HEART HEALTH Phenytoin (Dilantin) 100 MG CAPSULE 2 CAP PO BID SEIZURES (Reported) Simvastatin (Simvastatin*) 20 MG TABLET 1 TAB PO QPM PREVENTATIVE (Reported) Thyroid,Pork ([place] Thyroid) 240 MG TABLET 1 TAB PO DAILY THYROID (Reported) Warfarin Sodium (Coumadin) 2.5 MG TABLET 1 TAB PO 1700 BLOOD THINNER ( Reported) Past History Medical History Neurological: SEIZURE 2008 EENT: [facility] Cardiovascular: AFIB, PUL EMB Respiratory: pulmonary embolism Gastrointestinal: NONE Hepatic: NONE Renal: UTI Musculoskeletal: osteoarthritis, LOWER EXTREMITY EDEMA L1 compression fracture Psychiatric: NONE Endocrine: hypothyroidism Blood Disorders: DVT Cancer(s): UTERINE CA skin 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 Home Services at Home: None, INR [facility]RAW[facility] Primary Language: Burundian Smoking Status: Former Smoker Functional Ability ADLs Independent: dressing, eating, toileting. Needs Assist: bathing. Ambulation: after fall patient has been largely non ambulatory. IADLs Independent: medication admin. Needs Assist: housework, food prep, transportation. Unknown: shopping, finances, telephone. Review of Systems Review of Systems: Unremarkable except for that noted in history of present illness Exam & Diagnostic Data Vital Signs and I&O Vital Signs Date Time Temp Pulse Resp B/P B/P Pulse O2 O2 Flow FiO2 Mean Ox Delivery Rate 02/18 0912 115 16 100/60 92 Nasal 4.0L Cannula 02/18 0600 120 100/60 02/18 0032 96.0 108 20 100/78 92 02/17 2359 120 100/60 02/17 1722 112 100/56 02/17 1600 Nasal 4.0L Cannula 02/17 1538 112 20 100/56 94 Nasal 4.0L Cannula 02/17 1530 96.7 20 Intake & Output 02/18 1600 02/18 0800 02/18 0000 02/17 1600 02/17 0800 02/17 0000 Intake Total 0 500 0 Output Total 200 100 250 50 300 Balance -200 -100 -250 450 -300 Intake, IV 500 Intake, Oral 0 0 0 Number 1 Bowel Movements Output, Urine 200 100 250 50 300 Patient 206 lb 210 lb Weight Weight Bhargavi Lift Bhargavi Lift Measurement Method Physical Exam: Elongated, dystrophic and fungal nails noted 1 through 5 bilateral feet. Bilateral feet grossly edematous. No open lesions identified. Assessment/Plan Assessment/Plan Elongated and fungal nails bilaterally. Bedside debridement performed without incident. Consult Acknowledgment - Thank you for your consult request. Attending MD Review Statement Attending Statement Attending MD Statement: examined this patient
[2017-02-18 15:43] VITALS: BP 98/52
--- NOTE | 2017-02-18 17:03 | NUR ---
LATE ENTRY - REPORTED TO DR. BIJAL NGUYEN THAT PATIENT'S OUTPUT WAS 150ML FOR THE 7A-3P SHIFT.
[2017-02-19 00:25] VITALS: BP 110/76
--- NOTE | 2017-02-19 07:16 | PN- Housestaff ---
MANJEET DINH,[facility] 02/19/17 0716: Subjective Follow-up For: Tachybradycardia syndrome Hypothyroidism Hypoalbuminemia Hypothermia Tele-Events Since Last Visit: Rodney mariscal, heart rate between 113-127 Subjective: Patient seen and examined this morning, alert, in no acute distress. No acute overnight events reported. Hypothermia improved, remains on 4 L of nasal cannula oxygen satting in the 90s, afebrile, labs reviewed, she had a sore was done yesterday, started him. Will see how she tolerates. Review of Systems Constitutional: Reports: see HPI. Objective Last 24 Hrs of Vital Signs/I&O Vital Signs Date Time Temp Pulse Resp B/P B/P Pulse O2 O2 Flow FiO2 Mean Ox Delivery Rate 02/19 0817 92 20 108/70 96 Nasal 4.0L Cannula 02/19 0025 109 18 110/76 94 Nasal Cannula 02/19 0000 Nasal 4.0L Cannula 02/18 2315 128 98/48 02/18 1600 95 Nasal 4.0L Cannula 02/18 1543 122 16 98/52 94 Nasal 4.0L Cannula 02/18 1351 125 102/74 Intake & Output 02/19 1600 02/19 0800 02/19 0000 Intake Total 120 350 Output Total 200 150 Balance -80 200 Intake, Oral 120 350 Number 0 Bowel Movements Output, Urine 200 150 Patient 92.249 kg Weight Weight Bhargavi Lift Measurement Method Physical Exam General Appearance: Alert, Oriented X3, Cooperative, No Acute Distress Cardiovascular: Regular Rate, Normal S1, Normal S2, No Murmurs Lungs: Clear to Auscultation, Normal Air Movement Abdomen: Normal Bowel Sounds, Soft, No Tenderness Extremities: No Clubbing, No Cyanosis, bilaterallower extremity edema 3+ Current Medications: Current Medications Sig/Liudmila Start time Last Medication Dose Route Stop Time Status Admin Acetaminophen 1,000 MG Q6P PRN 02/04 1300 AC 02/12 IV 2141 Docusate Sodium 100 MG BID 02/10 2200 AC 02/18 PO 2101 Glycerin 2 SPRAY Q2P PRN 02/01 0745 AC 02/18 PO 1019 Levothyroxine Sodium 62.5 MCG DAILY 02/18 1000 AC 02/18 IV 1035 Metoprolol Tartrate 25 MG BID 02/18 2200 AC PO Metoprolol Tartrate 2.5 MG Q6 02/16 1800 DC 02/18 IV 1351 Nystatin 1 ANUPAM BID 02/15 0645 DC 02/18 TOP 2101 Ondansetron HCl 4 MG Q6P PRN 01/31 2030 AC 01/31 IV 2021 Pantoprazole Sodium 40 MG DAILY 02/01 0030 AC 02/18 IV 1019 Polyethylene Glycol 17 GM DAILY PRN 02/19 0825 AC PO Polyethylene Glycol 17 GM DAILY 02/08 1022 DC 02/16 PO 1002 Senna 187 MG AT BEDTIME 02/10 2200 AC 02/18 PO 2101 Senna/Docusate Sodium 1 TAB BID PRN 02/19 0830 AC PO Last 24 Hrs of Lab/Kurt Results Last 24 Hrs of Labs/Mics: Laboratory Tests 02/19/17 0555: Anion Gap 6, Estimated GFR 59 L, BUN/Creatinine Ratio 54.4 H, TSH 17.300 H, Free T4 0.63 L, PT 38.7 H, INR 3.73 H, Phenytoin 22.9 H Assessment/Plan Assessment: 87 yo female with PMH of COPD, recent A.fib, hypothyroidism, hyperlipidemia, seizure disorder, possible TIA, PE, and frequent UTI presented with CC of mechanical fall with left knee trauma. Assessment and plan # Atrial fibrillation with RVR * Patient status post pacemaker placement 6 days ago. * Cardizem on hold * Continue metoprolol 25 mg twice a day #Intestinal obstruction * Resolved #Lower and upper extremity edema: * Lasix given as needed and as tolerated by blood pressure #History of pulmonary embolism * INR this am 3.52, holding off todays dose * Dose warfarin daily as per INR #History of hypothyroidism * TSH improved . * Dose of levothyroxine has been increased to IV 62.5 micrograms daily * Patient was found to have bradicardia and tachycardia after she underwent pacer placement. * TSH T4 pending, will adjust dose of Synthroid accordingly #Hyperlipidemia * Continue statin #History of seizure disorder * Phenytoin on hold, levels high, will recheck tomoro #Low urine output/Hypoalbuminemia * Urine output improved slightly, albumin from 2.7-2.9 Patient failed swallow evaluation yesterday, still nothing by mouth. Today patient is more awake and alert we'll try to repeat swallow evaluation today DVT PPX COUMADIN Full code Problem List: 1. Atrial fibrillation 2. Tachycardia 3. Status post placement of cardiac pacemaker Pain Ratin Pain Location: none Pain Goal: Remain pain free Pain Plan: [facility] Tomorrow's Labs & Rationales: none Consulting Request: Consulting Specialty: Cardiology Consulting Physician: Bienvenido Garland MD Reason for Consult: a. FIB WITH rvr BORIS DIHN,JUWAN 02/19/17 1137: Attending MD Review Statement Attending Statement Attending Assessment/Plan: Patient seen and examined. Plan of care discussed with the medical team and the patient. Available lab work and radiology test reports were reviewed. Patient' s son was at bedside. Patient appears awake alert and follows command. She denies any chest pain or difficulty breathing. Vital signs this morning are stable. Temperature is 96 and the axilla. Chest exam shows few scattered crepitations. Abdomen is soft nontender. She is currently awake and alert. Chemistry labs were reviewed and are currently stable. TSH is 17.3 which is decreased from 18.1. Free T4 is 0.63. Assessment plan * Atrial fibrillation with a rapid rate, rate now stable * Transient assessment obstruction now resolved * History of pulmonary embolism- INR today is 3.73; we will hold Coumadin this point. We should recheck INR tomorrow and wants INR approaches 2.5 Coumadin should be resumed. * Hypothyroidism and hypothermia- overall improved. Await recommendation of endocrinology for dose of thyroid replacement. * Patient appears stable for discharge.
[2017-02-19 08:16] LABS: PT 38.7 SEC (9.4-12.5)
[2017-02-19 08:17] VITALS: BP 108/70
--- NOTE | 2017-02-19 08:47 | PN- Endocrinology ---
Assessment/Plan Assessment: 87 yo female with PMH of COPD, hypothyroidism, hyperlipidemia, seizure disorder, possible TIA, pulmonary emoblus, and frequent UTI, who was admitted to after she had a mechanical fall. Patient has been suffering from profound hypothyroidism after thyroid medication wasn't given for approximately for 2 weeks. Since 02/13/2017, she has been on Synthroid intravenously. Clinically, her mental status has been improving. Her HR has been between 90 and 100. On 2016, free T4 was 0.82 and TSH was 22.2; free T4 is improving. On 02/17/2017, her TSH was 18.1 and free T4 was 0.75. Levothyroxine was increased to 62.5 mcg iv daily. She is more alert and is eating breakfast. But her HR has been betwee 120 and 130. Metoprolol was held last night. Metoprolol 25 mg twice a day was ordered. Plan: 1. add-on TSH and free T4 to am lab and then her thyroid medication will be adjusted accordingly; 2. continue monitoring VS will follow. Subjective Subjective: Patient is more alert this morning. Objective Last 24 Hrs of Vital Signs/I&O Vital Signs Date Time Temp Pulse Resp B/P B/P Pulse O2 O2 Flow FiO2 Mean Ox Delivery Rate 02/19 0817 92 20 108/70 96 Nasal 4.0L Cannula 02/19 0025 109 18 110/76 94 Nasal Cannula 02/19 0000 Nasal 4.0L Cannula 02/18 2315 128 98/48 02/18 1600 95 Nasal 4.0L Cannula 02/18 1543 122 16 98/52 94 Nasal 4.0L Cannula 02/18 1351 125 102/74 02/18 0912 115 16 100/60 92 Nasal 4.0L Cannula Intake & Output 02/19 1600 02/19 0800 02/19 0000 Intake Total 120 350 Output Total 200 150 Balance -80 200 Intake, Oral 120 350 Number 0 Bowel Movements Output, Urine 200 150 Patient 203 lb Weight Weight Bhargavi Lift Measurement Method Results Pertinent Lab/Kurt Results: Laboratory Tests 02/19 0555 Chemistry Sodium (137 - 145 mmol/L) 144 Potassium (3.5 - 5.1 mmol/L) 4.5 Chloride (98 - 107 mmol/L) 113 H Carbon Dioxide (22 - 30 mmol/L) 24 Anion Gap (5 - 16) 6 BUN (7 - 17 mg/dL) 49 H Creatinine (0.5 - 1.0 mg/dL) 0.9 Estimated GFR (>60 ml/min) 59 L BUN/Creatinine Ratio (7 - 25 %) 54.4 H TSH (0.270 - 4.200 uIU/mL) Pending Free T4 (0.85 - 1.93 ng/dL) Pending Coagulation PT (9.4 - 12.5 SEC) 38.7 H INR (0.90 - 1.19) 3.73 H Toxicology Phenytoin (10.0 - 20.0 ug/mL) 22.9 H
[2017-02-19] MEDS ORDERED: SYNTHROID125 MCG PO (13:11)
[2017-02-19] MEDS ORDERED: DIGOXIN125 MCG PO (14:13)
[2017-02-19 15:48] VITALS: BP 102/74
--- NOTE | 2017-02-19 22:23 | NUR ---
INFORMED DR YENIFER RUEDA THAT PT ONLY CONSUMED 360 ML PO AND HAS NOT VOIDED S/P BOLTON REMOVAL AT 1600 (BOLTON HAD 300 ML). BLADDER SCANNED AT THIS TIME, SHOWED [address] RUEDA, WILL CONT TO MONITOR, NO STRAIGHT CATH AT THIS TIME. WILL CONTINUE TO ENCOURAGE PO INTAKE.
[2017-02-19 23:41] VITALS: BP 122/68
--- NOTE | 2017-02-20 07:18 | PN- Housestaff ---
MANJEET DINH,[facility] 02/20/17 0718: Subjective Follow-up For: Tachybradycardia syndrome Hypothyroidism Hypoalbuminemia Hypothermia Tele-Events Since Last Visit: Atrial fibrillation, heart rate between 102 to 1:30 Subjective: Patient seen and examined this morning. She is lying in bed, lethargic but in no acute distress. Hypothymia improved, otherwise answering within normal limits except for overnight she was tachycardic. Remains on 2 L of nasal cannula oxygen satting in the 90s. Urine output remains low. Review of Systems Constitutional: Denies: see HPI. Objective Last 24 Hrs of Vital Signs/I&O Vital Signs Date Time Temp Pulse Resp B/P B/P Pulse O2 O2 Flow FiO2 Mean Ox Delivery Rate 02/20 0000 Nasal 3.0L Cannula 02/19 2341 96.9 109 20 122/68 95 Nasal Cannula 02/19 2154 135 104/00 02/19 1610 98 98/00 02/19 1600 Nasal 3.0L Cannula 02/19 1548 97.4 107 20 102/74 94 Nasal Cannula 02/19 1102 138 108/70 02/19 0817 92 20 108/70 96 Nasal 4.0L Cannula Intake & Output 02/20 1600 02/20 0800 02/20 0000 Intake Total 200 370 Output Total 125 300 Balance 75 70 Intake, IV 10 Intake, Oral 200 360 Output, Urine 125 300 Patient 92.703 kg Weight Weight Bhargavi Lift Measurement Method Physical Exam General Appearance: No Acute Distress Cardiovascular: Regular Rate, Normal S1, Normal S2 Lungs: Clear to Auscultation, Normal Air Movement Abdomen: Normal Bowel Sounds, Soft, No Tenderness Extremities: No Clubbing, No Cyanosis, bilateral lower extremity edema 3+ Current Medications: Current Medications Sig/Liudmila Start time Last Medication Dose Route Stop Time Status Admin Acetaminophen 1,000 MG Q6P PRN 02/04 1300 AC 02/12 IV 2141 Digoxin 0.125 MG 1700 02/19 1415 AC 02/19 PO 1610 Diltiazem HCl 180 MG DAILY 02/20 1000 AC PO Diltiazem HCl 360 MG DAILY 02/20 1000 AC PO Diltiazem HCl 360 MG DAILY 02/19 1646 DC PO Docusate Sodium 100 MG BID 02/10 2200 AC 02/19 PO 2154 Glycerin 2 SPRAY Q2P PRN 02/01 0745 AC 02/18 PO 1019 Levothyroxine Sodium 0.125 MG DAILY AC 02/20 0700 AC 02/20 PO 0551 Levothyroxine Sodium 0.125 MG DAILY AC 02/19 1130 DC PO Levothyroxine Sodium 62.5 MCG DAILY 02/18 1000 DC 02/19 IV 1100 Metoprolol Tartrate 25 MG BID 02/18 2200 AC 02/19 PO 2154 Ondansetron HCl 4 MG Q6P PRN 01/31 2030 AC 01/31 IV 2021 Pantoprazole Sodium 40 MG DAILY 02/01 0030 AC 02/19 IV 1101 Polyethylene Glycol 17 GM DAILY PRN 02/19 0825 AC PO Polyethylene Glycol 17 GM DAILY 02/08 1022 DC 02/16 PO 1002 Senna 187 MG AT BEDTIME 02/10 220 AC 02/19 PO 2154 Senna/Docusate Sodium 1 TAB BID PRN 02/19 0830 AC PO Last 24 Hrs of Lab/Kurt Results Last 24 Hrs of Labs/Mics: Laboratory Tests 02/20/17 0607: PT Pending, INR Pending Assessment/Plan Assessment: 87 yo female with PMH of COPD, recent A.fib, hypothyroidism, hyperlipidemia, seizure disorder, possible TIA, PE, and frequent UTI presented with CC of mechanical fall with left knee trauma. Assessment and plan # Atrial fibrillation with RVR * Patient status post pacemaker placement 7 days ago. * Cardizem 60 mg daily resumed * Continue metoprolol 25 mg twice a day #Intestinal obstruction * Resolved #Lower and upper extremity edema: * Lasix given as needed and as tolerated by blood pressure #History of pulmonary embolism * INR this am 3.52, holding off todays dose * Dose warfarin daily as per INR #History of hypothyroidism * TSH improved . * Continue 125 mg of levothyroxine by mouth daily * Patient advised to repeat TSH and T4 in 3 days and follow-up with Dr. telles in one week #Hyperlipidemia * Continue statin #History of seizure disorder * Phenytoin on hold, levels high, will recheck tomoro #Low urine output/Hypoalbuminemia * Urine output improved slightly, albumin from 2.7-2.9 Pure honey diet DVT PPX COUMADIN Full code Problem List: 1. Seizure disorder 2. Hypothyroidism 3. Tachy-lauren syndrome 4. Status post placement of cardiac pacemaker Pain Ratin Pain Location: None Pain Goal: Remain pain free Pain Plan: Mild pain pathway Tomorrow's Labs & Rationales: INR for Coumadin dosing Consulting Request: Consulting Specialty: Cardiology Consulting Physician: Bienvenido Garland MD Reason for Consult: a. FIB WITH mukesh ESCALANTE MD,JUWAN 02/20/17 1016: Attending MD Review Statement Attending Statement Attending Assessment/Plan: Patient seen and examined. Plan of care discussed with the medical team and the patient. Available lab work and radiology test reports were reviewed. Patient' s son was at bedside. Patient appears awake alert and follows command and overall appears much much improved more awake and alert. She denies any chest pain or difficulty breathing. Vital signs this morning are stable. Temperature is 97.5. Chest exam shows few scattered crepitations. Abdomen is soft nontender. She is currently awake and alert. No new labs available today. Assessment plan * Atrial fibrillation with a rapid rate, rate now stable * Transient bowel obstruction now resolved * History of pulmonary embolism- INR today is 3.88; we will hold Coumadin this point. We should recheck INR tomorrow and wants INR approaches 2.5 Coumadin should be resumed. * Hypothyroidism and hypothermia- overall improved. recommendation of endocrinology noted. We will continue IV thyroxine this point given that there is concern for absorption of oral thyroid replacement.
[2017-02-20 08:00] VITALS: BP 114/60
[2017-02-20 08:55] LABS: PT 40.2 SEC (9.4-12.5)
--- NOTE | 2017-02-20 09:00 | PN- Endocrinology ---
Assessment/Plan Assessment: 87 yo female with PMH of COPD, hypothyroidism, hyperlipidemia, seizure disorder, possible TIA, pulmonary emoblus, and frequent UTI, who was admitted to after she had a mechanical fall. Patient has been suffering from profound hypothyroidism after thyroid medication wasn't given for approximately for 2 weeks. Since 02/13/2017, she has been on Synthroid intravenously. Clinically, her mental status has been improving. Her HR has been between 90 and 100. On 2016, free T4 was 0.82 and TSH was 22.2; free T4 is improving. On 02/17/2017, her TSH was 18.1 and free T4 was 0.75. Levothyroxine was increased to 62.5 mcg iv daily. Patient was more alert and ate well yesterday. Repeat TSH was 17.3 and free T4 was 0.63 on 02/19/2017. Levothyroxine was changed to 125 mcg po daily. But patient wasn't able to go to the rehab yestersday. However, she is more confused this morning and she still has significant edema. In addition, she complained of having back pain. Patient has had a hx of compression fracture. Plan: 1. since patient is still in the hospital and she still has significant edema, I will recommend giving patient Levothyroxine 62.5 mcg iv daily instead of oral thyroid medication. 2. repeat TFT tomorrow; 3. recommend x-ray of spine to r/o any new fractures. will follow.
[2017-02-20 18:01] VITALS: BP 98/00
--- NOTE | 2017-02-20 21:03 | NUR ---
[employer] WORK PROGRAM DIRECTOR ERIKA THAT THIS RN FOUND OPEN AREA TO PT'S COCCYX. WOUND CARE EVAL WAS PLACED VIA SKIN MAN. AREA MEASURES 1 CM BY 0.6 CM. PT IS ON SIZEWISE MATTRESS.
[2017-02-20 23:49] VITALS: BP 100/60
[2017-02-21 05:55] LABS: PT 33.8 SEC (9.4-12.5)
--- NOTE | 2017-02-21 07:15 | PN- Housestaff ---
Subjective Follow-up For: Tachybradycardia syndrome Hypothyroidism Hypoalbuminemia Hypothermia Tele-Events Since Last Visit: Heart rate between 71 to 115 Subjective: Patient seen and examined this morning. She was lying in bed in no acute distress. Alert and oriented. Hypothermia improved, TSH came back high as compared to 2 days ago, levothyroxin dose increased to 135MCG. Otherwise offers no complaints. Continues to have bilateral lower extremity edema and bilateral basal crackles, will see if she can tolerate small doses of Lasix as a blood pressure has been low. Review of Systems Constitutional: Reports: see HPI. Objective Last 24 Hrs of Vital Signs/I&O Vital Signs Date Time Temp Pulse Resp B/P B/P Pulse O2 O2 Flow FiO2 Mean Ox Delivery Rate 02/21 1004 64 100/60 02/21 0921 95.8 02/21 0812 95.3 64 20 100/60 95 Nasal 2.0L Cannula 02/21 0800 Nasal 3.0L Cannula 02/21 0000 Nasal 3.0L Cannula 02/20 2349 97.1 80 2 100/60 96 Nasal 3.0L Cannula 02/20 2146 76 94/00 02/20 1801 96.9 89 20 98/00 96 02/20 1600 Nasal 3.0L Cannula Intake & Output 02/21 1600 02/21 0800 02/21 0000 Intake Total 50 360 Output Total Balance 50 360 Intake, Oral 50 360 Number 1 Bowel Movements Patient 92.986 kg Weight Weight Bhargavi Lift Measurement Method Physical Exam General Appearance: Alert, Oriented X3, Cooperative, No Acute Distress Cardiovascular: Regular Rate, Normal S1, Normal S2, No Murmurs Lungs: BILATERAL LOWER LUNG ZONE CRACKLES Abdomen: Normal Bowel Sounds, Soft, No Tenderness Extremities: No Clubbing, No Cyanosis, BILATERAL LOWER EXTREMITY EDEMA 3+ Current Medications: Current Medications Sig/Liudmila Start time Last Medication Dose Route Stop Time Status Admin Acetaminophen 1,000 MG Q6P PRN 02/04 1300 AC 02/20 IV 1256 Diltiazem HCl 360 MG DAILY 02/20 1000 AC 02/21 PO 1004 Docusate Sodium 100 MG BID 02/10 2200 AC 02/21 PO 1004 Glycerin 2 SPRAY Q2P PRN 02/01 0745 AC 02/18 PO 1019 Levothyroxine Sodium 0.137 MG DAILY AC 02/21 0900 AC 02/21 PO 1004 Levothyroxine Sodium 62.5 MCG DAILY 02/20 1000 DC 02/20 IV 1128 Metoprolol Tartrate 25 MG BID 02/18 2200 AC 02/21 PO 1004 Ondansetron HCl 4 MG Q6P PRN 01/31 2030 AC 01/31 IV 202 Pantoprazole Sodium 40 MG DAILY 02/01 0030 AC 02/21 IV 1004 Polyethylene Glycol 17 GM DAILY PRN 02/19 0825 AC PO Senna 187 MG AT BEDTIME 02/10 220 AC 02/20 PO 2147 Senna/Docusate Sodium 1 TAB BID PRN 02/19 0830 AC PO Last 24 Hrs of Lab/Kurt Results Last 24 Hrs of Labs/Mics: Laboratory Tests 02/21/17 0510: TSH 19.900 H, Free T4 0.73 L, PT 33.8 H, INR 3.26 H, Phenytoin 18.2 Assessment/Plan Assessment: 87 yo female with PMH of COPD, recent A.fib, hypothyroidism, hyperlipidemia, seizure disorder, possible TIA, PE, and frequent UTI presented with CC of mechanical fall with left knee trauma. Assessment and plan # Atrial fibrillation with RVR * Patient status post pacemaker placement 8 days ago. * Cardizem 360 mg daily resumed * Continue metoprolol 25 mg twice a day #Intestinal obstruction * Resolved #Lower and upper extremity edema: * Lasix given as needed and as tolerated by blood pressure #History of pulmonary embolism * INR this am 3.52, holding off todays dose * Dose warfarin daily as per INR #History of hypothyroidism * TSH improved . * levothyroxine dose increased to 0.137MG by mouth daily * Patient advised to repeat TSH and T4 in 3 days and follow-up with Dr. telles in one week #Hyperlipidemia * Continue statin #History of seizure disorder * Phenytoin on hold, levels high, will recheck tomoro #Low urine output/Hypoalbuminemia * Urine output improved slightly, albumin from 2.7-2.9 Pure honey diet DVT PPX COUMADIN Full code Problem List: 1. Atrial fibrillation 2. Tachy-lauren syndrome 3. Status post placement of cardiac pacemaker Pain Ratin Pain Location: NONE Pain Goal: Remain pain free Pain Plan: MPP Tomorrow's Labs & Rationales: INR Consulting Request: Consulting Specialty: Cardiology Consulting Physician: Bienvenido Garland MD Reason for Consult: a. FIB WITH rvr
[2017-02-21 08:12] VITALS: BP 100/60
--- NOTE | 2017-02-21 08:26 | PN- Endocrinology ---
Assessment/Plan Assessment: 87 yo female with PMH of COPD, hypothyroidism, hyperlipidemia, seizure disorder, possible TIA, pulmonary emoblus, and frequent UTI, who was admitted to after she had a mechanical fall. Patient has been suffering from profound hypothyroidism after thyroid medication wasn't given for approximately for 2 weeks. Since 02/13/2017, she has been on Synthroid intravenously. Clinically, her mental status has been improving. Her HR has been between 90 and 100. On 2016, free T4 was 0.82 and TSH was 22.2; free T4 is improving. On 02/17/2017, her TSH was 18.1 and free T4 was 0.75. Levothyroxine was increased to 62.5 mcg iv daily. Patient was more alert and ate well yesterday. Repeat TSH was 17.3 and free T4 was 0.63 on 02/19/2017. She is on Levothyroxine 62.5 mcg iv daily. She is more alert this morning and is eating breakfast. Repeat TFT showed TSH 19.9 and free T4 0.73. Plan: 1. change Levothyroxine to 137 mcg po daily today; 2. monitor TFT once a week x 4 weeks and then I will adjust her thyroid medication accordingly. will follow. Subjective Subjective: Patient appears more alert this morning. Objective Last 24 Hrs of Vital Signs/I&O Vital Signs Date Time Temp Pulse Resp B/P B/P Pulse O2 O2 Flow FiO2 Mean Ox Delivery Rate 02/21 0812 95.3 64 20 100/60 95 Nasal 2.0L Cannula 02/21 0000 Nasal 3.0L Cannula 02/20 2349 97.1 80 2 100/60 96 Nasal 3.0L Cannula 02/20 2146 76 94/00 02/20 1801 96.9 89 20 98/00 96 02/20 1600 Nasal 3.0L Cannula 02/20 1014 120 122/80 Intake & Output 02/21 1600 02/21 0800 02/21 0000 Intake Total 50 360 Output Total Balance 50 360 Intake, Oral 50 360 Number 1 Bowel Movements Patient 205 lb Weight Weight Bhargavi Lift Measurement Method Results Pertinent Lab/Kurt Results: Laboratory Tests 02/21 0510 Chemistry TSH (0.270 - 4.200 uIU/mL) 19.900 H Free T4 (0.85 - 1.93 ng/dL) 0.73 L Coagulation PT (9.4 - 12.5 SEC) 33.8 H INR (0.90 - 1.19) 3.26 H Toxicology Phenytoin (10.0 - 20.0 ug/mL) Pending
[2017-02-21] MEDS ORDERED: LEVOTHYROXINE137 MCG PO (11:11)
--- NOTE | 2017-02-21 11:41 | NUR ---
RECTAL TEMP AT [address]SAMREEN BURROUGHS WAS NOTIFIED. RECHECK AT 0920 WAS 95.8. WAS UPDATED.
--- NOTE | 2017-02-21 13:16 | PN- Att Addend ---
Attending Addendum Attending Brief Note Patient seen and examined. Plan of care discussed with the medical team and the patient. Available lab work and radiology test reports were reviewed. Patient' s son was at bedside. Patient appears awake alert and follows commands. She appears slightly confused. Her son reports that this morning patient was disoriented. Patient still appears admit this and has audible wheeze at the bedside. She denies any chest pain or difficulty breathing. Vital Signs Date Time Temp Pulse Resp B/P B/P Pulse O2 O2 Flow FiO2 Mean Ox Delivery Rate 02/21 1004 64 100/60 02/21 0921 95.8 02/21 0812 95.3 64 20 100/60 95 Nasal 2.0L Cannula 02/21 0800 Nasal 3.0L Cannula 02/21 0000 Nasal 3.0L Cannula 02/20 2349 97.1 80 2 100/60 96 Nasal 3.0L Cannula 02/20 2146 76 94/00 02/20 1801 96.9 89 20 98/00 96 02/20 1600 Nasal 3.0L Cannula Intake & Output 02/21 1600 02/21 0800 02/21 0000 Intake Total 660 50 360 Output Total Balance 660 50 360 Intake, Oral 660 50 360 Number 1 Bowel Movements Patient 205 lb Weight Weight Bhargavi Lift Measurement Method Exam: General: Patient awake slightly confused and lethargic CVS: S1 plus S2 without any murmur or gallops Chest: Scattered wheezes and crepitations bilaterally. There is no respiratory distress. Abdomen: Soft nontender, bowel sound present, no guarding or rebound HUSBANDRY PERSON: Awake with mild to moderate confusion without any focal neuro deficit and follows command appropriately Extremities: Bilateral 3-4+ pitting edema in lower extremities; no clubbing or cyanosis noted Laboratory Tests 02/21 0510 Chemistry TSH (0.270 - 4.200 uIU/mL) 19.900 H Free T4 (0.85 - 1.93 ng/dL) 0.73 L Coagulation PT (9.4 - 12.5 SEC) 33.8 H INR (0.90 - 1.19) 3.26 H Toxicology Phenytoin (10.0 - 20.0 ug/mL) 18.2 Assessment plan * Atrial fibrillation with a rapid rate, rate now stable * Transient bowel obstruction now resolved * History of pulmonary embolism- INR today is 3.88; we will hold Coumadin at this point. We should recheck INR tomorrow and wants INR approaches 2.5 Coumadin should be resumed. * Hypothyroidism and hypothermia- overall improved. recommendation of endocrinology noted. We will continue oral thyroxine this point. * Bilateral edema and possible anasarca- with possible increased congestion and wheeze, plan is to continue Lasix preferably IV. * Patient is not stable for discharge this point
[2017-02-21 16:20] VITALS: BP 104/60
[2017-02-21 23:55] VITALS: BP 108/72
--- NOTE | 2017-02-22 07:21 | PN- Housestaff ---
Subjective Follow-up For: Tachybradycardia syndrome Hypothyroidism Hypothermia Tele-Events Since Last Visit: Rodney mariscal, Heart rate between 68-89 Subjective: Patient seen and examined this morning. No acute overnight events. She was lying in bed in no acute distress. Fully alert and oriented in a great mood today, she is now on mechanical ground and thin liquids, vitals within normal limits, she is likely to be discharged date STR. Review of Systems Constitutional: Reports: see HPI. Objective Last 24 Hrs of Vital Signs/I&O Vital Signs Date Time Temp Pulse Resp B/P B/P Pulse O2 O2 Flow FiO2 Mean Ox Delivery Rate 02/22 0000 95 Nasal 3.0L Cannula 02/21 2355 97.5 110 18 108/72 95 Nasal Cannula 02/21 2102 92 106/00 02/21 1620 97.5 130 20 104/60 96 02/21 1600 Nasal 3.0L Cannula 02/21 1004 64 100/60 02/21 0921 95.8 Intake & Output 02/22 1600 02/22 0800 02/22 0000 Intake Total 600 600 Output Total Balance 600 600 Intake, Oral 600 600 Number 2 1 Bowel Movements Patient 93.44 kg Weight Weight Bhargavi Lift Measurement Method Physical Exam General Appearance: Alert, Oriented X3, Cooperative, No Acute Distress Cardiovascular: Regular Rate, Normal S1, Normal S2, No Murmurs Lungs: b/lateral basal crackles Abdomen: Normal Bowel Sounds, Soft, No Tenderness Extremities: No Clubbing, No Cyanosis, bilateral lower extremity edema 3+ Current Medications: Current Medications Sig/Liudmila Start time Last Medication Dose Route Stop Time Status Admin Acetaminophen 1,000 MG Q6P PRN 02/04 1300 AC 02/20 IV 1256 Diltiazem HCl 360 MG DAILY 02/20 1000 AC 02/21 PO 1004 Docusate Sodium 100 MG BID 02/100 AC 02/21 PO 210 Furosemide 20 MG ONCE ONE 02/21 1200 DC 02/21 PO 02/21 1201 1309 Glycerin 2 SPRAY Q2P PRN 02/01 0745 AC 02/18 PO 1019 Levothyroxine Sodium 0.137 MG DAILY AC 02/21 0900 AC 02/22 PO 0609 Metoprolol Tartrate 25 MG BID 02/18 2200 AC 02/21 PO 210 Ondansetron HCl 4 MG Q6P PRN 01/31 2030 AC 01/31 IV 202 Pantoprazole Sodium 40 MG DAILY 02/01 0030 AC 02/21 IV 1004 Phenytoin 200 MG BID 02/22 1000 AC PO Polyethylene Glycol 17 GM DAILY PRN 02/19 0825 AC PO Senna 187 MG AT BEDTIME 02/10 2200 AC 02/21 PO 2102 Senna/Docusate Sodium 1 TAB BID PRN 02/19 0830 AC PO Assessment/Plan Assessment: 87 yo female with PMH of COPD, recent A.fib, hypothyroidism, hyperlipidemia, seizure disorder, possible TIA, PE, and frequent UTI presented with CC of mechanical fall with left knee trauma. Assessment and plan # Atrial fibrillation with RVR * Patient status post pacemaker placement 8 days ago. * Cardizem 360 mg daily resumed * Continue metoprolol 25 mg twice a day #Intestinal obstruction * Resolved #Lower and upper extremity edema: * Lasix given as needed and as tolerated by blood pressure #History of pulmonary embolism * INR this am 3.52, holding off todays dose * Dose warfarin daily as per INR #History of hypothyroidism * TSH improved . * levothyroxine dose increased to 0.137MG by mouth daily * Patient advised to repeat TSH and T4 in 3 days and follow-up with Dr. telles in one week #Hyperlipidemia * Continue statin #History of seizure disorder * Phenytoin resumed #Low urine output/Hypoalbuminemia * Urine output improved slightly, albumin from 2.7-2.9 Pure honey diet DVT PPX COUMADIN Full code Problem List: 1. Tachy-lauren syndrome 2. Status post placement of cardiac pacemaker 3. Afib Pain Ratin Pain Location: none Pain Goal: Remain pain free Pain Plan: [facility] Tomorrow's Labs & Rationales: none Consulting Request: Consulting Specialty: Cardiology Consulting Physician: Bienvenido Garland MD Reason for Consult: a. FIB WITH rvr
--- NOTE | 2017-02-22 08:15 | PN- Endocrinology ---
Assessment/Plan Assessment: 87 yo female with PMH of COPD, hypothyroidism, hyperlipidemia, seizure disorder, possible TIA, pulmonary emoblus, and frequent UTI, who was admitted to after she had a mechanical fall. Patient has been suffering from profound hypothyroidism after thyroid medication wasn't given for approximately for 2 weeks. Since 02/13/2017, she has been on Synthroid intravenously. Clinically, her mental status has been improving. Her HR has been between 90 and 100. On 2016, free T4 was 0.82 and TSH was 22.2; free T4 is improving. On 02/17/2017, her TSH was 18.1 and free T4 was 0.75. Levothyroxine was increased to 62.5 mcg iv daily. Patient was more alert and ate well yesterday. Repeat TSH was 17.3 and free T4 was 0.63 on 02/19/2017. She is on Levothyroxine 62.5 mcg iv daily. On 02/21/2017, Repeat TFT showed TSH 19.9 and free T4 0.73. Levothyroxine was adjusted to 137 mcg po daily. She is more alert this morning. Plan: 1. continue Levothyroxine 137 mcg po daily for now; 2. monitor TFT once a week x 4 weeks and I will adjust her thyroid medication accordingly; if she is going to be discharged to rehab today, please ask nurse there to forward the report of repeat TFT to my office for review. 3. f/u in office after discharge. Subjective Subjective: She feels better. Objective Last 24 Hrs of Vital Signs/I&O Vital Signs Date Time Temp Pulse Resp B/P B/P Pulse O2 O2 Flow FiO2 Mean Ox Delivery Rate 02/22 0000 95 Nasal 3.0L Cannula 02/21 2355 97.5 110 18 108/72 95 Nasal Cannula 02/21 2102 92 106/00 02/21 1620 97.5 130 20 104/60 96 02/21 1600 Nasal 3.0L Cannula 02/21 1004 64 100/60 02/21 0921 95.8 Intake & Output 02/22 1600 02/22 0800 02/22 0000 Intake Total 600 600 Output Total Balance 600 600 Intake, Oral 600 600 Number 2 1 Bowel Movements Patient 206 lb Weight Weight Bhargavi Lift Measurement Method
[2017-02-22 08:29] VITALS: BP 104/70
--- NOTE | 2017-02-22 10:38 | PN- Att Addend ---
See Addendum Attending Addendum Attending Brief Note Patient seen and examined. Plan of care discussed with the medical team and the patient. Available lab work and radiology test reports were reviewed. Patient' s son was at bedside. Patient appears awake alert and follows commands. She appears slightly confused. Her son reports that this morning patient was disoriented. She denies any chest pain or difficulty breathing. She complains of moderate pain in the back when moved. Vital Signs Date Time Temp Pulse Resp B/P B/P Pulse O2 O2 Flow FiO2 Mean Ox Delivery Rate 02/22 0829 68 20 104/70 95 Nasal 3.0L Cannula 02/22 0000 95 Nasal 3.0L Cannula 02/21 2355 97.5 110 18 108/72 95 Nasal Cannula 02/21 2102 92 106/00 02/21 1620 97.5 130 20 104/60 96 02/21 1600 Nasal 3.0L Cannula Intake & Output 02/22 1600 02/22 0800 02/22 0000 Intake Total 600 600 Output Total Balance 600 600 Intake, Oral 600 600 Number 2 1 Bowel Movements Patient 206 lb Weight Weight Bhargavi Lift Measurement Method Exam: General: Patient awake slightly confused and lethargic CVS: S1 plus S2 without any murmur or gallops Chest: Scattered wheezes and crepitations bilaterally. There is no respiratory distress. 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 * Hypothyroidism and hypothermia- overall improved. recommendation of endocrinology noted. We will continue oral thyroxine this point. * Bilateral edema and possible anasarca- with possible increased congestion and wheeze, plan is to continue Lasix oral. * Patient is stable today for discharge this point. This was tourniquet to son was at the bedside. * Please ask the [facility] to check TFTs weekly and report Dr. telles
[2017-02-22 10:43] LABS: PT 19.6 SEC (9.4-12.5)
[2017-02-22] MEDS ORDERED: LASIX20 M1 PO (10:45)
[2017-02-22 15:03] VITALS: BP 104/70
== END 2017-02-22 15:30 | DRG 242 ==
LOC: ERH 19:46 → ERHI 22:15 → CRI 22:15 → 1NO 22:15 → ENRESERV 22:51 → 1NO 23:33 → ENTRNSPT 02-12 10:53 → EDTRNSPTSTS 02-12 11:03 → CMPTRNSPT 02-12 11:30 → CRI 02-13 08:58 → 1NO 02-15 21:22 → ENPENDDIS 02-22 14:18 → 1NO 02-22 15:30
PROVIDERS: Internal Medicine; Internal Medicine Interventional Cardiology; Pediatrics; Student in an Organized Health Care Education/Training Program; ADMIT Internal Medicine
PROC: 0JH604Z Insertion of Pacemaker, Single Chamber into Chest Subcutaneous Tissue and Fascia, Open Approach (ICD-10-PCS; principal; 2017-02-12)
PROC: 02HK3JZ Insertion of Pacemaker Lead into Right Ventricle, Percutaneous Approach (ICD-10-PCS; principal; 2017-02-12)
PROC: B518ZZA Fluoroscopy of Superior Vena Cava, Guidance (ICD-10-PCS; 2017-02-13)
PROC: 02HV33Z Insertion of Infusion Device into Superior Vena Cava, Percutaneous Approach (ICD-10-PCS; 2017-02-13)
DX: I49.5 Sick sinus syndrome (principal); K56.60 Unspecified intestinal obstruction; G93.49 Other encephalopathy; N17.9 Acute kidney failure, unspecified; E87.5 Hyperkalemia; E88.09 Other disorders of plasma-protein metabolism, not elsewhere classified; E46 Unspecified protein-calorie malnutrition; J44.9 Chronic obstructive pulmonary disease, unspecified; I48.0 Paroxysmal atrial fibrillation; G40.909 Epilepsy, unspecified, not intractable, without status epilepticus; R13.10 Dysphagia, unspecified; E03.9 Hypothyroidism, unspecified; Z86.711 Personal history of pulmonary embolism; Z86.718 Personal history of other venous thrombosis and embolism; Z85.42 Personal history of malignant neoplasm of other parts of uterus; Z79.01 Long term (current) use of anticoagulants; Z87.891 Personal history of nicotine dependence; R68.0 Hypothermia, not associated with low environmental temperature; B35.1 Tinea unguium; E78.5 Hyperlipidemia, unspecified
CPT/HCPCS: 1NP; 84133; 84300; CCU; 36415; 73110-RT; 73502-LT; 74000; 77001; 81001; 82436; 82570; 87040; 87086; 93005; 93010; 96360; 96361; 97110-GO; 97116-GO; 97161-GP; 97530-GO; C1769; C1786; C1898; J0131; J0690; J0696; J1165; J1642; J1644; J1885; J1940; J2405; J7040; J7042; P9047

== ENCOUNTER 2017-03-07 17:47 | Inpatient (IN) | payer OTHER ==
[~2017-03-07] VITALS: Ht 162.6 cm; Wt 94.8 kg
[~2017-03-07 17:47] MED LIST changes: +DIGOXIN125 MCG PO; +LASIX20 M1 PO; +LEVOTHYROXINE137 MCG PO; +SYNTHROID125 MCG PO
--- NOTE | 2017-03-07 17:57 | ED DYSPNEA/ASTHMA COMPLAINT ---
History of Present Illness General Chief Complaint: Dyspnea (COPD, CHF, Other) Stated Complaint: EDEMA/SOB/CHF Source: patient, family, old records Exam Limitations: patient's age, poor historian Vital Signs & Intake/Output Vital Signs & Intake/Output Vital Signs Date Time Temp Pulse Resp B/P B/P Pulse O2 O2 Flow FiO2 Mean Ox Delivery Rate 03/07 2146 97.0 97 20 125/73 93 Nasal 4.0L Cannula 03/07 2029 97.1 103 20 124/70 93 Nasal 4.0L Cannula 03/07 1952 97.0 03/07 194 82 20 108/60 91 Nasal 4.0L Cannula 03/07 1854 92 Nasal 4.0L Cannula 03/07 183 95 Nasal 4.0L Cannula 03/07 1833 97.1 79 20 100/46 95 Nasal 4.0L Cannula Allergies Coded Allergies: clarithromycin (N/V PER PT DAUGHTER 01/25/17) nitrofurantoin (N/V 01/25/17) Reconcile Medications Acetaminophen 325 MG CAPSULE 1 CAP PO PRN PAIN (Reported) Diltiazem HCl (Cardizem Cd) 120 MG CAP.ER.24H 360 MG PO DAILY HEART HEALTH Furosemide (Lasix) 20 MG TABLET 1 TAB PO DAILY leg swelling hold for SBP<90 Melatonin 3 MG TABLET 1 TAB PO QHS SLEEP (Reported) Metoprolol Tartrate 25 MG TABLET 1 TAB PO BID HEART/BP (Reported) Phenytoin (Dilantin) 100 MG CAPSULE 2 CAP PO BID SEIZURES (Reported) Simvastatin (Simvastatin*) 20 MG TABLET 1 TAB PO QPM PREVENTATIVE (Reported) Thyroid,Pork ([place] Thyroid) 240 MG TABLET 120 MG PO DAILY THYROID (Reported ) Warfarin Sodium (Coumadin) 2.5 MG TABLET 1 TAB PO 1700 BLOOD THINNER ( Reported) Triage Nurses Notes Reviewed? yes Onset: Gradual Duration: day(s): (1) Timing: recent history Severity: moderate Prior Episodes/Possible Cause: occasional episodes Associated Symptoms: cough HPI: Patient is an 87-year-old female with history of COPD, dependent edema, atrial fibrillation presenting to the emergency department with chief complaint of shortness of breath that started this morning around 11 AM. Per family member she started having shortness of breath, they haven't needed to put her on supplemental oxygen at the senior living for the past 2 days. Usually she does not wear O2. Family members also report increased edema in the lower extremities up to her abdomen. Family reports that she's been eating and drinking without difficulty. No fevers documented at the nursing facility. Family does report that her roommate at the nursing facility was coughing off- and-on trip she caught a cold from the roommate. No falls. Family reports that she was just discharged from the hospital about 2 weeks ago. Patient was recently taken off metoprolol as family reported that she was confused on the metoprolol. Family reports that she has been mentating much better since being off that medication. (JADON WHITE) Past History Medical History Any Pertinent Medical History? 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 No (JADON WHITE) Review of Systems Review of Systems Constitutional: Reports: malaise. Comments Review of systems: See HPI, All other systems negative. Constitutional, no chills fever or weight loss HEENT: No visual changes no sore throat Cardiovascular: No chest pain ,palpitation Skin, no jaundice no rashes Respiratory: No sputum or hemoptysis GI: No nausea no vomiting : No dysuria No hematuria Muscle skeletal: no back pain, no neck pain, Neurologic: No numbness no INCREASED confusion Psych: No INCREASED stress Heme/endocrine: No bruising no bleeding no polyuria or polydipsia Immunology: No splenectomy or history of AIDS (JADON WHITE) Physical Exam Physical Exam General Appearance: mild distress, edematous Respiratory: crackles Comments: obese person in no acute distress HEENT: extraocular motion intact, no nystagmus. Pupils equally round and reactive to light and accommodation. Nose is atraumatic. External auditory canal and Tympanic membranes clear. Pharynx normal. No swelling or edema. Very dry oral mucosa. chappedLips. Neck: Supple, no lymphadenopathy, normal range of motion without pain or tenderness Back: Nontender, no CVA tenderness. Full range of motion Cardiovascular: Regular rate and rhythms no murmurs rubs or gallops, normal JVP Respiratory: Chest nontender. Mild respiratory distress.diffuse crackles to auscultation bilaterally Abdomen: Soft, edematous, nondistended, no appreciable organomegaly. Normal bowel sounds. No ascites rectal: Extensive erythema around the rectum, erythema expands an area of approximately 8-10 cm. There is a 3 cm open ulceration with surrounding granulation tissue noted on the coccyx, unable to clearly visualize the base of this ulcer, approximately grade 3 but confused to breathing for further clarification. Extremity: 3+ pitting edema over the lower extremity is bilaterally, pedal pulses are 1+ bilaterally. Neuro: Alert oriented x3, motor sensory normal, cranial nerves II through XII grossly intact. Skin: see rectal exam, otherwise No appreciable rash on exposed skin Psych: Mood and affect is normal, memory and judgment is normal. Core Measures ACS in differential dx? Yes Severe Sepsis Present: No Septic Shock Present: No (HA ZELAYA,JADON) Progress Differential Diagnosis: asthma, AMI, bronchitis, CHF, COPD, musculoskeletal pain , pulmonary embolism, pneumonia Plan of Care: Orders Procedure Date/time Status Nothing by Mouth 03/08 B Active Saline Lock 03/07 2330 Active Misc Message 03/07 2330 Active ED Holding Orders 03/07 2330 Active Admit to inpatient 03/07 2330 Active Vital Signs 03/07 2330 Active Code Status 03/07 2330 Active Add-on Test (ER Only) 03/07 2327 Active Add-on Test (ER Only) 03/07 2325 Active Patient Data 03/07 2236 Active Warner, Insertion/Removal/Asses 03/07 1954 Active CULTURE,URINE 03/07 1954 Active URINALYSIS 03/07 1954 Complete TOTAL TRIODOTHYROXINE 03/07 190 Active FREE T4 03/07 190 Active Add-on Test (ER Only) 03/07 1800 Active Telemetry/Supervisor Lens Generating 03/07 1755 Active TSH REFLEX 03/07 1755 Active TROPONIN LEVEL 03/07 175 Active PROTHROMBIN TIME 03/07 1755 Active COMPREHENSIVE METABOLIC PANEL 03/07 1755 Active CBC WITHOUT DIFFERENTIAL 03/07 1755 Active B-TYPE NATRIURETIC PEP (BNP) 03/07 1755 Active EKG 03/07 1751 Active Laboratory Tests 03/07/172104: Urinalysis LIGHT H, Urine Color YEL, Urine Clarity CLDY H, Urine pH 5.5, Ur Specific [place] 1.020, Urine Protein TRACE H, Urine Ketones NEG, Urine Nitrite NEG, Urine Bilirubin NEG, Urine Urobilinogen 0.2, Ur Leukocyte Esterase MOD H, Ur Microscopic SEDIMENT EXAMINED, Urine RBC RARE, Urine WBC 5-10 H, Ur Epithelial Cells MANY H, Urine Bacteria MANY H, Urine Hemoglobin TRACE-LYSED, Urine Glucose NEG 03/07/17 190: Anion Gap 6, Estimated GFR > 60, BUN/Creatinine Ratio 50.0 H, Glucose 101 H, Calcium 8.2 L, Total Bilirubin 0.7, AST 43 H, ALT 40, Alkaline Phosphatase 197 H, Troponin I 0.06, Tsm-H-Umkrsvweadr Pept 3630 H, Total Protein 6.1 L, Albumin 2.7 L, Globulin 3.4, Albumin/Globulin Ratio 0.8 L, Free T4 Pending, Total T3 Pending, TSH &T3 &Free T4 Intrp 21.200 H Microbiology 03/07 2105 URINE ROUT: Urine Culture - RECD Diagnostic Imaging: Viewed by Me: Radiology Read. Discussed w/RAD: Radiology Read. Radiology Impression: PATIENT: GABBY BASS PRESENT AGE: 87 PATIENT ACCOUNT NO: [id number] : 31 LOCATION: [facility] ORDERING PHYSICIAN: JADON ZELAYA SERVICE DATE: 03/07/17 EXAM TYPE: CAT - CT CHEST WO IV CONTRAST EXAMINATION: CT CHEST WITHOUT CONTRAST CLINICAL INFORMATION: Short of breath. COMPARISON: None. TECHNIQUE: Multidetector volumetric CT imaging of the chest was done. Axial MIP volume rendering provided. Sagittal and coronal reformatted images were obtained. DLP: 682 mGy-cm FINDINGS: LUNGS AND PLEURAL SPACES: Moderate to large sided right, moderate left sided pleural effusions are noted. Right lower lobe is completely collapsed. Only the superior segment of the left lower lobe is aerated. There is subsegmental atelectasis involving the posterior segment of the right upper lobe with peripheral nodularity and groundglass opacity likely related to atelectasis without dense consolidation to suggest pneumonia. The majority of the left upper lobe and lingula are well expanded although there is some groundglass opacity in the left upper lobe, evolving atelectasis versus infiltrate. Neoplasm also not excluded. There is dense pleural calcification inferiorly in the left lower thorax anterior laterally image 32 series 2. MEDIASTINUM: No pathologically enlarged lymph nodes are seen. There is moderate atherosclerotic aortic and coronary calcification. There is no pericardial effusion. Heart is enlarged containing a right ventricular pacer lead with the generator on the left. AXILLA : There is extensive anasarca involving the left-sided chest wall and breast. Greater than right. There is a 1.4 cm short access dimension left axillary lymph node. UPPER ABDOMEN: Unremarkable. OSSEOUS STRUCTURES: No aggressive osseous lesions. There are degenerative changes. IMPRESSION: 1. Moderate to large right- sided pleural effusion, moderate left-sided pleural effusion. 2. Right lower lobe is completely collapsed, the majority of the left lower lobe basilar segments are also nearly completely collapsed. 3. Indeterminate groundglass opacities in the upper lobes likely related to atelectasis. Pulmonary edema neoplastic and infectious etiology less likely though not excluded. 4. Extensive soft tissue edema left side greater than right extending into the left breast age and etiology indeterminate. 5. No aggressive osseous lesions. DICTATED BY: MARIO KWON MD DATE/TIME DICTATED:03/07/172051 TERRITORY MANAGER GENERAL SALES:NICK DATE/TIME TRANSCRIBED:03/07/172051 CONFIDENTIAL, DO NOT COPY WITHOUT APPROPRIATE AUTHORIZATION. <Electronically signed in Other Vendor System> SIGNED BY: MARIO KWON MD 03/07/17 3389 Initial ED EKG: AFIB Prior EKG: unchanged Comments: On arrival patient placed on nasal cannula, oxygen in the mid 90s on 2 L. Patient appears to be very dry in the oral mucosa. Very edematous on the extremity and lung exam. Last echocardiogram was done in January showed an EF greater than 60. Blood work that was done this morning showed increased and BUN , creatinine was baseline. We will reassess labs, we will obtain CAT scan to further clarify shortness of breath. Suspecting large pleural effusions. Patient and family informed of imaging results and lab work results. A Warner was started, thick yellow urine coming out in the Warner catheter. Given IV Lasix. Recent UTI. We will send off urine and urine culture. On CT of chest there are large pleural effusions bilaterally. This explains patient's shortness of breath and crackles and edema. Patient will be admitted for anasarca. We will continue IV Lasix, serial CMP, cardiology consultation. Discussed with Dr. Tai, he agrees with plan. He will admit patient to telemetry under . (JADON WHITE) Departure Departure Time of Disposition: 2244 Disposition: STILL A PATIENT Condition: Stable Clinical Impression Primary Impression: Anasarca Secondary Impressions: Pleural effusion Referrals: ORTIZ MENDOZA MD (PCP/Family) Departure Forms: Customer Survey General Discharge Information Admission Note Spoke With: LEE ANN TURCIOS MD Documentation of Exam: Documentation of any treatments & extenuating circumstances including Concerns Regarding Discharge (functional status, medication knowledge or non-compliance, living conditions, etc.) that warrant an admission rather than observation: Patient requiring IV diuretics for anasarca, monitoring closely ins and outs, titrate oxygen use, oxygen use is relatively new per patient, patient may require intervention for large pleural effusions if they do not improve with Lasix. Cardiology consultation, may need medication management. Discharge at this time is medically harmful and ill-advised. (JADON WHITE) PA/DIRECTOR OF MEDICAL SERVICES Co-Sign Statement Statement: ED Attending supervision documentation- [X] I saw and evaluated the patient. I have also reviewed all the pertinent lab results and diagnostic results. I agree with the findings and the plan of care as documented in the PA's/DIRECTOR OF MEDICAL SERVICES's documentation. [] I have reviewed the ED Record and agree with the PA's/DIRECTOR OF MEDICAL SERVICES's documentation. [] Additions or exceptions (if any) to the PAs/DIRECTOR OF MEDICAL SERVICES's note and plan are summarized below: [] I saw and personally evaluated the patient. She has anasarca. EKG shows A. fib. She is hypoxic on room air. (RA FONTANEZ,PHILLIP Cortes) Critical Care Note Critical Care Note Critical Care Time: 30-74 min (JADON WHITE)
--- NOTE | 2017-03-07 18:31 | NUR ---
BIBA FROM ECF FOR INCREASED SOB. PT HAS HX OF AFIB. PT ON NRB BY EMS. UPON ARRIVAL PT 80-85 SPO2 ON ROOM AIR. PT PLACED ON 4 LNC AND IS 95%. PT HAS POO IV ACCESS. 24G IN RIGHT FOREARM PLACED IN ED.
--- NOTE | 2017-03-07 18:38 | NUR ---
PT HAS HX OF HAVING PICC PLACEMENT FOR POOR ACCESS.
[2017-03-07] MEDS ORDERED: ARMOUR THYROID240 MG PO (19:00)
[2017-03-07] MEDS ORDERED: MELATONIN3 M4 PO (19:02)
--- NOTE | 2017-03-07 19:05 | NUR ---
PT DIFF STICK, SST AND LAV ONLY OBTAINED AND WALKED TO LAB BY THIS MST. PILAR IN LAB STATED THEY WILL TRY TO RESULT WHAT WAS IN TUBES.
--- NOTE | 2017-03-07 19:44 | NUR ---
PT CHANGED FOR INCONT URINE AND STOOL. PT HAS A WOUND ON COCCYX, PA RADHA AWARE AND IN ROOM FOR EVAL. PT HAS REDNESS TO LEFT BREAST AND ARM. PT IS EDEMATOUS. MOUTH SWABBED IWTH LEMON GLYCERIN AND VASELINE APPLIED TO LIP. PT HAS VERY DRY MUCOUS MEMBRANES.
--- NOTE | 2017-03-07 20:20 | NUR ---
PT TO CT SCA WITH RN AND MST.
--- NOTE | 2017-03-07 20:30 | NUR ---
PT RETURNED FROM CT
--- NOTE | 2017-03-07 21:38 | CT SCAN REPORT ---
EXAMINATION: CT CHEST WITHOUT CONTRAST CLINICAL INFORMATION: Short of breath. COMPARISON: None. TECHNIQUE: Multidetector volumetric CT imaging of the chest was done. Axial MIP volume rendering provided. Sagittal and coronal reformatted images were obtained. DLP: 682 mGy-cm FINDINGS: LUNGS AND PLEURAL SPACES: Moderate to large sided right, moderate left sided pleural effusions are noted. Right lower lobe is completely collapsed. Only the superior segment of the left lower lobe is aerated. There is subsegmental atelectasis involving the posterior segment of the right upper lobe with peripheral nodularity and groundglass opacity likely related to atelectasis without dense consolidation to suggest pneumonia. The majority of the left upper lobe and lingula are well expanded although there is some groundglass opacity in the left upper lobe, evolving atelectasis versus infiltrate. Neoplasm also not excluded. There is dense pleural calcification inferiorly in the left lower thorax anterior laterally image 32 series 2. MEDIASTINUM: No pathologically enlarged lymph nodes are seen. There is moderate atherosclerotic aortic and coronary calcification. There is no pericardial effusion. Heart is enlarged containing a right ventricular pacer lead with the generator on the left. AXILLA: There is extensive anasarca involving the left-sided chest wall and breast. Greater than right. There is a 1.4 cm short access dimension left axillary lymph node. UPPER ABDOMEN: Unremarkable. OSSEOUS STRUCTURES: No aggressive osseous lesions. There are degenerative changes. IMPRESSION: 1. Moderate to large right-sided pleural effusion, moderate left-sided pleural effusion. 2. Right lower lobe is completely collapsed, the majority of the left lower lobe basilar segments are also nearly completely collapsed. 3. Indeterminate groundglass opacities in the upper lobes likely related to atelectasis. Pulmonary edema neoplastic and infectious etiology less likely though not excluded. 4. Extensive soft tissue edema left side greater than right extending into the left breast age and etiology indeterminate. 5. No aggressive osseous lesions.
--- NOTE | 2017-03-08 00:24 | History & Physical ---
GOLDY PÉREZ MD 03/08/17 0022: General Information and HPI MD Statement: I have seen and personally examined GABBY BASS and documented this H&P. The patient is a 87 year old F who presented with a patient stated chief complaint of altered mental status and dyspnea. Source of Information: old records Exam Limitations: unable to give history History of Present Illness: 87 year old female with atrial fibrillation, pulmonary embolism, COPD, HLD, tachybradyarrhythmia s/p pacer, hypothyroidism, seizure disorder, presents with altered mental status, dyspnea and increasing generalized edema. Patient is unable to provide any history is moaning, appears to be in pain and moderate respiratory distress. Patient was recently hospitalized at [facility] last month with bowel obstruction, significant hypothyroidism and atrial fibrillation with RVR s/p permanent pacer placement. Patient was transferred to ER today from [place] for altered mental status and edema. Patient's respiratory status has declined was on room air at [place] and is now on supplemental oxygen. CT scan in ER shows large bilateral effusion and lobar collapse. Allergies/Medications Allergies: Coded Allergies: clarithromycin (N/V PER PT DAUGHTER 01/25/17) nitrofurantoin (N/V 01/25/17) Home Med list Acetaminophen 325 MG CAPSULE 1 CAP PO PRN PAIN (Reported) Diltiazem HCl (Cardizem Cd) 120 MG CAP.ER.24H 360 MG PO DAILY HEART HEALTH Furosemide (Lasix) 20 MG TABLET 1 TAB PO DAILY leg swelling hold for SBP<90 Melatonin 3 MG TABLET 1 TAB PO QHS SLEEP (Reported) Phenytoin (Dilantin) 100 MG CAPSULE 2 CAP PO BID SEIZURES (Reported) Simvastatin (Simvastatin*) 20 MG TABLET 1 TAB PO QPM PREVENTATIVE (Reported) Thyroid,Pork ([place] Thyroid) 240 MG TABLET 120 MG PO DAILY THYROID (Reported ) Warfarin Sodium (Coumadin) 2.5 MG TABLET 1 TAB PO 1700 BLOOD THINNER ( Reported) Compliance With Home Meds: GOOD Past History Travel History Traveled to [place] past 21 day No Medical History Neurological: SEIZURE 2008 EENT: INAJA Cardiovascular: AFIB, PUL EMB Respiratory: pulmonary embolism Gastrointestinal: NONE Hepatic: NONE Renal: UTI Musculoskeletal: osteoarthritis, LOWER EXTREMITY EDEMA L1 compression fracture Psychiatric: NONE Endocrine: hypothyroidism Blood Disorders: DVT Cancer(s): UTERINE CA skin 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 Needs Assist: bathing. Ambulation: after fall patient has been largely non ambulatory. IADLs Independent: medication admin. Needs Assist: housework, food prep, transportation. Unknown: shopping, finances, telephone. Review of Systems Review of Systems Constitutional: Denies: no symptoms. Comments unable to obtain history from patient Exam & Diagnostic Data Last 24 Hrs of Vital Signs/I&O Vital Signs Date Time Temp Pulse Resp B/P B/P Pulse O2 O2 Flow FiO2 Mean Ox Delivery Rate 03/07 2146 97.0 97 20 125/73 93 Nasal 4.0L Cannula 03/07 2029 97.1 103 20 124/70 93 Nasal 4.0L Cannula 03/07 1952 97.0 03/07 194 82 20 108/60 91 Nasal 4.0L Cannula 03/07 1854 92 Nasal 4.0L Cannula 03/07 1834 95 Nasal 4.0L Cannula 03/07 183 97.1 79 20 100/46 95 Nasal 4.0L Cannula Intake & Output 03/08 0800 07 0000 03/07 1600 Intake Total Output Total Balance Patient 180 lb Weight Weight Estimated Measurement Method Physical Exam General Appearance Moderate Distress Skin left arm weeping edema, 7x5cm stage 3 decubitus ulcer HEENT PERRLA, EOMI Neck Supple Cardiovascular irregular rhythm Lungs no breath sounds on RLL, b/l crackles Abdomen edematous soft abdomen Neurological groaning HWANG, unresponsive to voice Extremities No Clubbing (anasarca) Last 24 Hrs of Labs/Kurt: Laboratory Tests 03/08/17 0020: Lactic Acid 1.7, PT 44.1 *H, INR 4.26 *H, CBC w Diff , RBC 4.39, MCV 88.9, MCH 28.0, RDW 18.3 H, MPV 10.1, Gran % 83.7 H, Lymphocytes % 6.1 L, Monocytes % 9.6 H, Eosinophils % 0.2, Basophils % 0.4, Absolute Granulocytes 5.1, Absolute Lymphocytes 0.4 L, Absolute Monocytes 0.6, Absolute Eosinophils 0, Absolute Basophils 0, PUBS MCHC 31.5 L 03/07/172104: Methadone Screen Pending, Barbiturate Screen Pending, Ur Phencyclidine Scrn Pending, Amphetamines Screen Pending, U Benzodiazepines Scrn Pending, Urine Cocaine Screen Pending, Urine Cannabis Screen Pending, Urinalysis LIGHT H, Urine Color YEL, Urine Clarity CLDY H, Urine pH 5.5, Ur Specific [place] 1.020, Urine Protein TRACE H, Urine Ketones NEG, Urine Nitrite NEG, Urine Bilirubin NEG, Urine Urobilinogen 0.2, Ur Leukocyte Esterase MOD H, Ur Microscopic SEDIMENT EXAMINED, Urine RBC RARE, Urine WBC 5-10 H, Ur Epithelial Cells MANY H, Urine Bacteria MANY H, Urine Hemoglobin TRACE-LYSED, Urine Glucose NEG 03/07/17 1901: Anion Gap 6, Estimated GFR > 60, BUN/Creatinine Ratio 50.0 H, Glucose 101 H, Calcium 8.2 L, Total Bilirubin 0.7, AST 43 H, ALT 40, Alkaline Phosphatase 197 H, Troponin I 0.06, Hqu-T-Xruuwaewtyd Pept 3630 H, Total Protein 6.1 L, Albumin 2.7 L, Globulin 3.4, Albumin/Globulin Ratio 0.8 L, Free T4 0.73 L, Total T3 1.02, TSH &T3 &Free T4 Intrp 21.200 H Microbiology 03/07 2105 URINE ROUT: Urine Culture - RECD Diagnostic Data EKG Results atrial fibrillation, low voltage CXR Results Chest CT: 1. Moderate to large right-sided pleural effusion, moderate left-sided pleural effusion. 2. Right lower lobe is completely collapsed, the majority of the left lower lobe basilar segments are also nearly completely collapsed. 3. Indeterminate groundglass opacities in the upper lobes likely related to atelectasis. Pulmonary edema neoplastic and infectious etiology less likely though not excluded. Other Results echo 01/14/17 Normal size left ventricle. Mild concentric left ventricular hypertrophy. No obvious regional wall motion abnormalities. Normal left ventricular ejection fraction visually estimated at > 60%. Normal right ventricular size and function. Mild to moderate atrial dilatation. Mild mitral regurgitation. Mild aortic regurgitation. Moderate tricuspid regurgitation. Right ventricular systolic pressure estimated at 36 mmHg. Small pericardial effusion. Dilated inferior vena cava. Assessment/Plan Assessment: 87 year old female with atrial fibrillation, COPD, HLD, tachybradyarrhythmia s/p pacer, hypothyroidism, seizure disorder, presents with altered mental status, dyspnea and increasing generalized edema. 1. Altered mental status: urinary infection, respiratory failure secondary to congestive heart failure exacerbation versus hypothyroidism Stat Head CT to rule out hemorrhage with altered mental status in the setting of supratherapeutic INR Respiratory distress-multifactorial SpO2 in 80s on room air. Spo2 93% on 4L NC. Check ABG Poor Bipap candidate with altered mental status TRC eval Moderate to large bilateral pleural effusion with lobar collapse on CT Chest. Patient would benefit from therapeutic thoracentesis but risk/benefit needs to be considered in the setting of supratherapeutic INR. Consider coumadin reversal with vitamin K, hold coumadin for now Start broad sprectrum IV antibiotic coverage with Ceftazidime/Vancomycin to cover urinary tract infection and possible pneumonia. Urinalysis +LE, bacteria, WBCs Follow up urine and sputum cultures Keep patient sitting upright, aspiration precautions 2 CHF: patient has gross volume overload, anasarca on physical exam Received 80mg IV Lasix in ED. 40mg IV Lasix BID Elevate lower extremities Consult cardiology Check daily weights 3. Hypothyroidism Endocrine Consult TSH value high, holding oral thyroid medication and will give 200mcg IV thyroxine per Dr. Telles. 4. Seizures IV Dilantin 5. Atrial fibrillation: INR Hold Coumadin for now and will check INR daily Consider Vitamin K if plan for thoracentesis If poorly rate controlled, can give IV cardizem Holding PO cardizem for now due to mental status 6. Decubitus ulcer: Wound care evaluation Duoderm dressing Size morrison mattress NPO until mental status improves DVT ppx-on coumadin, supratherapeutic INR Full Code As Ranked By This Provider Problem List: 1. Atrial fibrillation 2. Hypothyroidism 3. UTI (lower urinary tract infection) 4. Shortness of breath Core Measures/Miscellaneous Acute Coronary Syndrome ACS Diagnosis: No Cerebrovascular Accident CVA/TIA Diagnosis: No Congestive Heart Failure CHF Diagnosis: Yes Date of most recent Echo: 01/14/17 Last Known EF %: 60 VTE (View Protocol) VTE Risk Factors: Acute medical illness, Age > 40, [facility] d/t: LE Edema No VTE Pharm Prophylaxis d/t: Blood coag disorder (supratherapeutic inr) VTE Diagnosis: No VTE Type: NONE VTE Confirmed by (Test): NONE Sepsis (View Protocol) Severe Sepsis Present: No Septic Shock Septic Shock Present: No Miscellaneous Documentation Attending Case Discussed With: LEE ANN TURCIOS MD Primary Care Physician: KELLY DINH,ORTIZ Patient sees these Specialists cardiology Level of Patient Care: Telemetry Consults Needed: 1 Consulting Specialty: Cardiology Consults Needed: 2 Consulting Specialty: Pulmonary Disease Consults Needed: 3 Consulting Specialty: Endocrinology JERI RAZO 03/08/17 0117: Resident Review Statement Resident Statement: examined this patient, discussed with internal audit senior manager, agreed with internal audit senior manager Other Findings: 87-year-old female with multiple comorbidities and past medical history significant for atrial fibrillation on Coumadin, recurrent urinary tract infection, history of seizures, history of pulmonary embolism, hypothyroidism, history of uterine cancer, recent admission at [facility] from January 29 to February 22 where she was diagnosed with atrial fibrillation with RVR, into stomach obstruction treated conservatively, hypothyroidism Episode of profound hypothyroidism myxedema was sent in from [facility] with worsening altered mental status, worsening lower extremity edema and left upper extremity edema. Patient was not able to give us any history as she was just moaning but not complaining of any pain. I tried to call her daughter twice and left message. Upon calling facility I was told that she had last upper extremity edema and Doppler was done which was negative for any thrombus, she visited Dr. Garland on March 02 and her metoprolol was discontinued. She was confused for the past few days and was moaning in the facility as well. Was saturating fine on room air table today. Her vital signs on admission were temperature 97.1, pulse 79, respiratory rate 20, blood pressure 100/46 and she was saturating 95% on 4 L nasal cannula. WBC count 6.1, hemoglobin 12.3, hematocrit 39.0, platelet count 134, INR 4.26, sodium 136, potassium 5.0, BUNs 40, creatinine 0.8, lactic acid 1.7, first set of troponin negative, Chest CT showed moderate large right-sided pleural effusion and moderate left- sided pleural effusion EKG showed atrial fibrillation with no acute ST-T wave changes Physical examination Patient is alert but confused and moaning Head atraumatic Neck supple Chest reduced air entry bilaterally Heart sounds irregularly irregular heart rate with no added sounds Abdomen protuberant with normal bowel sounds Extremities 4+ bilateral lower extremity edema up to abdomen No neurological examination done due to her physical condition Assessment and plan 87-year-old female with multiple comorbidities including atrial fibrillation, history of seizures, congestive heart failure, bilateral lower extremity edema came with chief complaint of worsening altered mental status that which confusion and worsening bilateral lower extremity edema and found to have moderate bilateral pleural effusions, acute hypoxic respiratory failure and supratherapeutic INR with worsening lower extremity edema and congestive heart failure exacerbation. We will admit patient on telemetry floor and will address following problems Problem #1 worsening altered mental status could be due to underlying worsening CHF/bilateral pleural effusion and hypoxia, her urine looked very dirty and her UTI may be contradicting in her mental status, she also found to have elevated TSH and could be underlying hypothyroidism/myxedema is contradicting in her mental status -For her worsening bilateral lower extremity edema patient was given 80 mg IV Lasix in ER and we will continue 40 mg twice a day from tomorrow -As her INR was found to be supratherapeutic more than 4 we will consider head CT to rule out any intracranial bleed that can contribute in her condition -We will give her supplemental oxygen to keep her O2 sat more than 90%. We will also order ABGs and if she is retaining we might consider BiPAP which probably she won't tolerate and as she is full code for now she would be low threshold for intubation. I tried calling her daughter to discuss her CODE STATUS but was not able to. We will discuss CODE STATUS with family in a.m. regarding need for intubation in case, need for pleural tap as she is hypoxic with moderate bilateral pleural effusions. As her INR is supratherapeutic we will hold Coumadin and will watch INR daily. We will request consultation in a.m. We will request cardiology evaluation in a.m. as well We will request formal endocrinology evaluation. Dr. telles was called with recent thyroid function test tonight and she was recommending to start patient on IV levothyroxine 200 MCG starting from tomorrow morning or if now we would hold morning dose. As she is confused we will keep her nothing by mouth for now and hold her Cardizem as well but if her heart rate and up in my consider starting her on Cardizem drip. #2 worsening bilateral lower extremity edema We will diurese her with IV Lasix Elevate lower extremities Cardiology evaluation in a.m. Problem #[address] telles was informed regarding recent TSH values and we will hold oral [place] Thyroid and will start patient on 200 MCG IV thyroxine daily. Problem #4 history of seizures We will give her Dilantin IV Problem #5 atrial fibrillation on Coumadin with supratherapeutic INR And hold Coumadin for now and will check INR daily Patient is full cor No pharmacological DVT prophylaxis needed due to supratherapeutic INR We will keep her nothing by mouth for now TAM DINH, [facility] 03/08/17 0439: Attending MD Review Statement Attending Statement Attending MD Statement: examined this patient, discuss w/resident/PA/C[employer]ESS CHEESE, agreed w/resident/PA/[employer]ESE Attending Assessment/Plan: 87 yo F with h/o paroxysmal Afib, seizure, TIA, hypothyroidism, PE on coumadin, recurrent UTI, recently admitted to [facility] (01/29 02/22) for Afib with RVR subsequently underwent PPM for SSS, conservatively managed for intestinal obstruction and profound hypothyroidism, is sent in from [facility] for generalised edema/ anasarca, left arm weeping and confusion for the past few days. Patient is moaning ?in pain, does not provide any history. As per information provided by [facility], patient had LUE doppler to rule out DVT. Of note, her metoprolol was discontinued recently by Dr. Garland. Vitals: afebrile, HR 90-110's, BP 117/68, sats 90-94% on 4L. Exam: awake but confused, moaning, generalised anasarca, LUE ecchymosis+, edema+, tongue dry, pupils equal and RTL, difficult to assess JVD, Chest bibasilar crackles+, Heart S1S2 irregularly irregular, systolic murmur+, Abdo: soft, diffuse edema extending from LE to abdomen and chest. LE: b/l 3++ pitting edema. Back: coccygeal wound. Labs: no leukocytosis, INR 4.26, Na 136, BUN 40, glucose 101, lactic acid 1.7, AST 43, Alk phos 197, trop neg, proBNP 3630, TSH 21.2, free T4 0.73. UA cloudy, trace protein, mod LE, WBC 5-10, many bacteria. Utox neg. AB.41/39/68/24. EKG: Afib. CT head: no acute pathology. CT chest: moderate to large right sided pleural effusion, moderate left sided pleural effusion. RLL collapsed, LLL basilar segments are collapsed, groundglass opacities in upper lobes atelectasis vs. Infiltrate. Echo (2017): EF >60%, moderate TR, RVSP elevated. 1. Acute hypoxemic respiratory failure in the setting of bilateral moderate to large pleural effusions 2/2 exacerbation of diastolic heart failure, with diffuse anasarca. Tele admit, aggressive diuresis with lasix IV 40 BID, strict I /O's, daily weights, TRC nebs, rule out ACS, hold off on repeat Echo. Obtain Cardio consult. Hold off on coumadin due to supratherapeutic INR. Obtain Pulm consult for diagnostic and therapeutic thoracentesis by IR. May need to reverse INR with FFP in AM. We need to have goals of care discussion with family and then consider proceeding with thoracentesis. NPO. 2. Confusion in the setting of respiratory failure/ CHF exacerbation, vs. Delirium 2/2 infection (HCAP vs. UTI). CT head neg. ABG shows hypoxemia, no CO2 retention. Panculture, will cover broadly with Ceftaz and Vanco, consider discontinuing antibiotics if patient remains afebrile. Avoid delirium triggers. Patient did not have a BM for 5 days, will give dulcolax suppository, aggressive bowel regime. Avoid sedative meds. Treat severe hypothyroidism (TSH is still elevated while on meds) with IV synthroid. (Patient is on [place] thyroid at home ). This was discussed with Endocrine overnight. Endo consult. Obtain wound consult for decubitus ulcer. 3. h/o seizures. Continue dilantin IV. 4. h/o PE and Afib. Hold coumadin 2/2 high INR. Recheck INR in AM. For HR control, consider cardizem drip if patient unable to take her PO meds. DVT ppx supratherapeutic INR. Full code (we need to have a family discussion about goals of care and code status). Tried to reach daughter but no response.
[2017-03-08 00:36] LABS: ABSOLUTE GRANULOCYTE CT 5.1 /CUMM (1.4-6.5); ABSOLUTE LYMPH COUNT 0.4 /CUMM (1.2-3.4); ABSOLUTE MONOCYTE COUNT 0.6 /CUMM (0.10-0.60); BASOPHIL % 0.4 % (0.0-2.0); EOSINOPHIL % 0.2 % (0-5); GRANULOCYTE % 83.7 % (42.2-75.2); MEAN CORPUSCULAR HGB CONC 31.5 G/DL (33.0-37.0); MEAN CORPUSCULAR VOLUME 88.9 FL (81.0-99.0); MEAN PLATELET VOLUME 10.1 FL (7.4-10.4); RBC DISTRIBUTION WIDTH 18.3 % (11.5-14.5); RED BLOOD CELL CT 4.39 /CUMM (4.20-5.40); WHITE BLOOD CELL COUNT 6.1 /CUMM (4.8-10.8)
[2017-03-08 00:50] LABS: PT 44.1 SEC (9.4-12.5)
--- NOTE | 2017-03-08 00:50 | NUR ---
CRITICAL TEST RESULTS [id number] GABBY BASS 87 F TESTS AND RESULTS: PT 44.1, INR 4.26 Results received and read back by: YU MENDENHALL Results received date and time: 03/08/17 0050 The following provider was notified of the results, and read the results back: HOUSE STAFF PAGED Notified date and time: 03/08/17 at 0050
--- NOTE | 2017-03-08 00:57 | NUR ---
REPORT CALLED TO JOSE ANGEL
--- NOTE | 2017-03-08 01:11 | NUR ---
Emergency Dept UC Admit Note: To be admitted to [facility] by DR. TURCIOS with CONGESTIVE HEART FAILURE as the diagnosis, to TELE 1NO #[id number] location. Nursing Pinion Polisher and admitting notified 03/08/17 at 3043
--- NOTE | 2017-03-08 02:18 | CT SCAN REPORT ---
EXAMINATION: CT HEAD WITHOUT CONTRAST CLINICAL INFORMATION: Altered mental status COMPARISON: None TECHNIQUE: Contiguous axial imaging was performed from the skull base to vertex without intravenous administration of contrast. DLP: 637.66 mGy-cm FINDINGS: There is no evidence of acute intracranial hemorrhage or territorial infarction. No abnormal mass effect or midline shift is seen. Eric[place]on to white matter differentiation is well preserved. No extra-axial fluid collections are identified. There is atrophy with prominence of the ventricles and the sulci and hypodensity of the periventricular white matter due to chronic small vessel ischemic disease. There is vascular calcifications of the internal carotid arteries bilaterally. The osseous structures and soft tissues are normal. The mastoid air cells and visualized portions of the paranasal sinuses are well aerated. IMPRESSION: No acute intracranial pathology.
[2017-03-08 02:34] VITALS: BP 100/60
--- NOTE | 2017-03-08 02:54 | NUR ---
PT ADMITTED FROM ER VIA STRETCHER, A/C. 4L ANITA. CHE. NPO. AFIB. LABS AND EKG ORDERED. SIZE FARRELL ORDERED. +4 GENERALIZED EDEMA/WEEPING. WILL CONTINUE TO MONITOR.
--- NOTE | 2017-03-08 04:39 | Admission Certification ---
Admission Certification Certification Statement - As attending physician, I certify that at the time of - admission, based on clinical presentation, severity of - symptoms, need for further diagnostic testing and - therapeutic interventions, and risk of adverse outcomes - without in-hospital treatment, in my clinical assessment, - this patient requires an acute hospital stay for a minimum - of two nights or longer. I have also considered psychsocial - factors such as support system, advanced age, financial - issues, cognitive issues, and failed out-patient treatments, - past re-admission history, safety of patient, and lack of - compliance as applicable. Specific rationale supporting this admission is: Acute hypoxemic respiratory failure, CHF, pleural effusions.
[2017-03-08 06:57] VITALS: BP 90/69
--- NOTE | 2017-03-08 07:39 | PN- Housestaff ---
See Addendum Subjective Follow-up For: 1. Altered mental status 2 CHF 3. Hypothyroidism 4. Decubitus ulcer Complaints: was unobtainable due to pt altered mental status Tele-Events Since Last Visit: a fib 100-119, no events Subjective: I have personally seen and examined Savita Mcneill at bedside this morning, she looks disoriented ,dehydrated and was unable to provide history Review of Systems Constitutional: Denies: no symptoms (was hard to confirm due to alt). EENTM: Denies: no symptoms. Objective Last 24 Hrs of Vital Signs/I&O Vital Signs Date Time Temp Pulse Resp B/P B/P Pulse O2 O2 Flow FiO2 Mean Ox Delivery Rate 03/08 0657 96.1 111 20 90/69 94 Nasal 4.0L Cannula 03/08 0234 96.0 110 24 100/60 90 Nasal 4.0L Cannula / 0206 Nasal 4.0L Cannula / 0055 97.6 85 20 117/68 94 Nasal 4.0L Cannula 07/05 2146 97.0 97 20 125/73 93 Nasal 4.0L Cannula 07/05 2029 97.1 103 20 124/70 93 Nasal 4.0L Cannula 07/05 1952 97.0 07/05 1941 82 20 108/60 91 Nasal 4.0L Cannula / 1854 92 Nasal 4.0L Cannula 07/05 1834 95 Nasal 4.0L Cannula 07/05 1833 97.1 79 20 100/46 95 Nasal 4.0L Cannula Intake & Output /06 1600 07/06 0800 07/06 0000 Intake Total 250 Output Total 1200 Balance -950 Intake, IV 250 Intake, Oral 0 Number 1 Bowel Movements Output, Urine 1200 Patient 180 lb Weight Weight Estimated Measurement Method Physical Exam General Appearance: patient is disoriented and uncooperative Skin: No Rashes, bed sore at the sacral area 2"X3", deep , no pus draining out of it Skin Temp/Moisture Exam: Warm/Dry HEENT: Atraumatic, very dry Mucous membranes Neck: Supple, No JVD Cardiovascular: Regular Rate, Normal S1, Normal S2, No Murmurs Lungs: bilateral crepitations , breath sounds absent in both lung bases Abdomen: Normal Bowel Sounds, Soft Neurological: couldn't be assessed due to altered mental ststus Extremities: bilateral 2+ pitting edema Current Medications: Current Medications Sig/Liudmila Start time Last Medication Dose Route Stop Time Status Admin Acetaminophen 650 MG Q6P PRN 03/08 0115 AC PO Acetaminophen 1,000 MG Q6P PRN 03/08 0115 AC 03/08 IV 0918 Acetaminophen 0 .STK-MED ONE 03/07 1909 DC IV Acetaminophen 1,000 MG ONCE ONE 03/07 184 NJ 03/07 N/A 1 UNIT IV 03/07 1859 192 Albuterol Sulfate 3 ML ONCE ONE 03/07 184 DC 03/07 INH 03/07 1846 185 Bisacodyl 10 MG ONCE ONE 03/08 0130 DC CO 03/08 0131 Ceftazidime 1,000 MG Q12H 03/08 020 NJ 03/08 IV 0251 Furosemide 40 MG 7:30 AM, & 4:30 PM 03/08 730 AC 03/08 IV 0913 Furosemide 0 .STK-MED ONE 03/07 2000 DC IV Furosemide 80 MG ONCE ONE 03/07 1945 DC 03/07 IV 03/07 194 195 Ipratropium [place] 2.5 ML ONCE ONE 03/07 184 DC 03/07 INH 03/07 1846 185 Levothyroxine Sodium 100 MCG DAILY AC 03/09 0700 DC IV Levothyroxine Sodium 100 MCG DAILY 03/08 1030 AC 03/08 IV 1057 Levothyroxine Sodium 200 MCG DAILY AC 03/08 07 DC IV Phenytoin 100 MG BID 03/08 1000 AC 03/08 Sodium Chloride 50 ML IV 1057 Phytonadione 2 MG ONCE ONE 03/08 1145 UNVr PO 03/08 1146 Vancomycin HCl 1,250 MG 0200 03/08 020 DC 03/08 Sodium Chloride 250 ML IV 0233 Last 24 Hrs of Lab/Kurt Results Last 24 Hrs of Labs/Mics: Laboratory Tests 03/08/17 0955: Lactic Acid 1.7 03/08/17 0955: Anion Gap 7, Estimated GFR > 60, BUN/Creatinine Ratio 52.5 H, Troponin I 0.06 03/08/17 0855: PT 42.9 *H, INR 4.14 *H, CBC w Diff MAN DIFF ORDERED, RBC 4.27, MCV 90.7, MCH 28.5, RDW 18.7 H, MPV 9.8, Gran % 83.7 H, Lymphocytes % 5.2 L, Monocytes % 10.5 H, Eosinophils % 0.5, Basophils % 0.1, Absolute Granulocytes 5.3, Segmented Neutrophils 82 H, Band Neutrophils 5, Absolute Lymphocytes 0.3 L, Lymphocytes 4 L, Monocytes 9, Absolute Monocytes 0.7 H, Absolute Eosinophils 0 , Absolute Basophils 0, Nucleated RBCs 1 H, Platelet Estimate DECREASED, Normocytic RBCs VERIFIED, Normochromic RBCs VERIFIED, PUBS MCHC 31.5 L 03/08/17 0230: pH 7.41, pCO2 39, pO2 68 L, HCO3 24, ABG O2 Sat (Measured) 94.0 L, P-50 (Temp Corrected) N, Carboxyhemoglobin 0.7 L, O2 Concentration % 3L, O2 Delivery Method N/C, Troponin I 0.06, Phlebotomy Draw Site RIGHT RADIAL 03/08/17 0020: Lactic Acid 1.7, PT 44.1 *H, INR 4.26 *H, CBC w Diff , RBC 4.39, MCV 88.9, MCH 28.0, RDW 18.3 H, MPV 10.1, Gran % 83.7 H, Lymphocytes % 6.1 L, Monocytes % 9.6 H, Eosinophils % 0.2, Basophils % 0.4, Absolute Granulocytes 5.1, Absolute Lymphocytes 0.4 L, Absolute Monocytes 0.6, Absolute Eosinophils 0, Absolute Basophils 0, PUBS MCHC 31.5 L 03/07/17 2105: Urine Opiates Screen < 100.00, Methadone Screen 64, Barbiturate Screen 90, Ur Phencyclidine Scrn < 6.00, Amphetamines Screen < 100, U Benzodiazepines Scrn < 85, Urine Cocaine Screen < 50, Urine Cannabis Screen < 5.00, Urinalysis LIGHT H , Urine Color YEL, Urine Clarity CLDY H, Urine pH 5.5, Ur Specific [place] 1.020, Urine Protein TRACE H, Urine Ketones NEG, Urine Nitrite NEG, Urine Bilirubin NEG, Urine Urobilinogen 0.2, Ur Leukocyte Esterase MOD H, Ur Microscopic SEDIMENT EXAMINED, Urine RBC RARE, Urine WBC 5-10 H, Ur Epithelial Cells MANY H, Urine Bacteria MANY H, Urine Hemoglobin TRACE-LYSED, Urine Glucose NEG 03/07/17 1901: Anion Gap 6, Estimated GFR > 60, BUN/Creatinine Ratio 50.0 H, Glucose 101 H, Calcium 8.2 L, Total Bilirubin 0.7, AST 43 H, ALT 40, Alkaline Phosphatase 197 H, Troponin I 0.06, [id number] Pept 3630 H, Total Protein 6.1 L, Albumin 2.7 L, Globulin 3.4, Albumin/Globulin Ratio 0.8 L, Free T4 0.73 L, Total T3 1.02, TSH &T3 &Free T4 Intrp 21.200 H Microbiology 03/08 300 LOWER RESP: Respiratory Culture - COLB 03/08 300 LOWER RESP: Gram Stain - COLB 03/07 2105 URINE ROUT: Urine Culture - RES GRAM POSITIVE COCCI Orders Radiology Findings: head CT: No acute intracranial pathology. chest CT: Moderate to large right-sided pleural effusion, moderate left-sided pleural effusion. Right lower lobe is completely collapsed, the majority of the left lower lobe basilar segments are also nearly completely collapsed. Indeterminate groundglass opacities in the upper lobes likely related to atelectasis. Pulmonary edema neoplastic and infectious etiology less likely though not excluded. Extensive soft tissue edema left side greater than right extending into the left breast age and etiology indeterminate. 5. No aggressive osseous lesion Assessment/Plan Assessment: assessment: 87 year old lady with atrial fibrillation, COPD, HLD, arrhythmia s/p pacer, hypothyroidism, seizure disorder,Patient was recently hospitalized at [facility] last month with bowel obstruction, significant hypothyroidism and atrial fibrillation she presented yesterday with altered mental status, dyspnea and increasing generalized edema. patient this morning was completely disoriented and dehydrated.and couldn't give any history problems and plan: 1. Altered mental status: might be due dehydration, electrolyte imbalance( as the patient was not able to eat or drink or it might be due to hypoxic respiratory failure infection secondary to fluid accumilation in the lung as the patient stopped taking her lasix in the care home. patient is severely hypothyroid which might have added to her deterirated mental status * head CT normal which r/o any focal brain pathology * monitor her I&O * monitor her electrolytes * monitor vitals and blood pressure 2 CHF increase lasix to every 12 hrs IV weight checks monitor bep daily Monitor I &O 3. Hypothyroidism: * Continue levothyroxine * check FT4 in 2 days 4. Seizures: * will check Dilantin level again as per pulmonary consult * Continue Dilantin 5. Atrial fibrillation: will hold Hold warfarin will consider therapeutic and diagnostic thoracentesis once INR is better * Could give 2 mg vitamin K by mouth 6. Decubitus ulcer: * pressure bed sore on coccyx aroung 2X3 cm deep non draining. * general expected healing is poor due to anasarca and general poor condition of the paitnet * aggressive offloading and low air loss mattress, as per wound care consult * Wound care can be Santyl ointment covered with Xeroform and Adaptic cleanse daily. accounrding to wound care consult * Left arm can be covered with Xeroform daily. Full Code Problem List: 1. Atrial fibrillation 2. History of malignant neoplasm of uterine body 3. Hypothyroidism 4. Seizure disorder 5. Shortness of breath 6. Status post placement of cardiac pacemaker 7. Anasarca 8. Pleural effusion 9. Tachy-lauren syndrome Pain Ratin Pain Location: n/a Pain Goal: Remain pain free Pain Plan: tylenol Tomorrow's Labs & Rationales: dilantin: pt on dilantin cbc: possible infection bep: pt on lasix inr: was on coumadin , possible thoracocentesis DVT/Prophylaxis: pharmacological Consulting Request: Consulting Specialty: Endocrinology
--- NOTE | 2017-03-08 07:39 | Discharge Summary ---
Hospital Course Course Consulting Request: Consulting Specialty: Endocrinology Allergies: Coded Allergies: clarithromycin (N/V PER PT DAUGHTER 01/25/17) nitrofurantoin (N/V 01/25/17)
--- NOTE | 2017-03-08 08:07 | Cons- Wound Care ---
General Information and HPI Consulting Request Date of Consult: 03/08/17 Requested By: TAM DINH,LEE ANN Reason for Consult: Pressure injury ulcer of the coccyx present on admission left arm ulcer present on admission. 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 She is unable to provide any history. She is noted to be hypothyroid with markedly elevated TSH suggesting a component of myxedema. Allergies/Medications Allergies: Coded Allergies: clarithromycin (N/V PER PT DAUGHTER 01/25/17) nitrofurantoin (N/V 01/25/17) Home Med List: Acetaminophen 325 MG CAPSULE 1 CAP PO PRN PAIN (Reported) Diltiazem HCl (Cardizem Cd) 120 MG CAP.ER.24H 360 MG PO DAILY HEART HEALTH Furosemide (Lasix) 20 MG TABLET 1 TAB PO DAILY leg swelling hold for SBP<90 Melatonin 3 MG TABLET 1 TAB PO QHS SLEEP (Reported) Phenytoin (Dilantin) 100 MG CAPSULE 2 CAP PO BID SEIZURES (Reported) Simvastatin (Simvastatin*) 20 MG TABLET 1 TAB PO QPM PREVENTATIVE (Reported) Thyroid,Pork ([place] Thyroid) 240 MG TABLET 120 MG PO DAILY THYROID (Reported ) Warfarin Sodium (Coumadin) 2.5 MG TABLET 1 TAB PO 1700 BLOOD THINNER ( Reported) Review of Systems Review of Systems: Unobtainable Past History Travel History Traveled to [place] past 21 day No Medical History Neurological: SEIZURE 2008 EENT: [facility] [place] Cardiovascular: AFIB, PUL EMB Respiratory: pulmonary embolism Gastrointestinal: NONE Hepatic: NONE Renal: UTI Musculoskeletal: osteoarthritis, LOWER EXTREMITY EDEMA L1 compression fracture Psychiatric: NONE Endocrine: hypothyroidism Blood Disorders: DVT Cancer(s): UTERINE CA 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 Needs Assist: bathing. Ambulation: after fall patient has been largely non ambulatory. IADLs Independent: medication admin. Needs Assist: housework, food prep, transportation. Unknown: shopping, finances, telephone. Exam & Diagnostic Data Vital Signs and I&O Vital Signs Result Date Time Pulse Ox 94 03/08 657 B/P 90/69 03/08 657 O2 Delivery Nasal Cannula 03/08 657 O2 Flow Rate 4.0L 03/08 657 Temp 96.1 03/08 657 Pulse 111 03/08 0657 Resp 20 03/08 06 Intake & Output 03/08 0000 07/ 1600 03/07 0800 Intake Total Output Total Balance Patient 180 lb Weight Weight Estimated Measurement Method The coccyx shows there to be a unstageable ulcer measuring approximately 3 x 2 cm there is an area that is stage III wound is several millimeters deep there is no probable bone or periwound erythema. Over the left arm is approximately 1.5 x 1.5 cm partial thickness ulcer which appears to be a skin tear. There are ecchymoses present related to an elevated INR. Note that the albumin is 2.7. 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 There is a partial thickness skin tear of the left arm. Patient has evidence of profound hypothyroidism and anasarca. Recommend aggressive offloading and low air loss mattress. Wound care can be Santyl ointment covered with Xeroform and Adaptic cleanse daily. Left arm can be covered with Xeroform daily. [place] for wound resolution is poor. Further management of anasarca pleural effusions hypothyroidism by primary care team Consult Acknowledgment - Thank you for your consult request.
[2017-03-08 10:04] LABS: ABSOLUTE BASOPHIL COUNT 0 /CUMM (0.0-0.2); ABSOLUTE EOSINOPHIL COUNT 0 /CUMM (0.0-0.7); ABSOLUTE GRANULOCYTE CT 5.3 /CUMM (1.4-6.5); ABSOLUTE LYMPH COUNT 0.3 /CUMM (1.2-3.4); ABSOLUTE MONOCYTE COUNT 0.7 /CUMM (0.10-0.60); BASOPHIL % 0.1 % (0.0-2.0); EOSINOPHIL % 0.5 % (0-5); GRANULOCYTE % 83.7 % (42.2-75.2); HEMATOCRIT 38.7 % (37-47); MEAN CORPUSCULAR HGB 28.5 PG (27.0-31.0); MEAN CORPUSCULAR HGB CONC 31.5 G/DL (33.0-37.0); MEAN CORPUSCULAR VOLUME 90.7 FL (81.0-99.0); MEAN PLATELET VOLUME 9.8 FL (7.4-10.4); PLATELET COUNT 119 /CUMM (130-400); RBC DISTRIBUTION WIDTH 18.7 % (11.5-14.5); RED BLOOD CELL CT 4.27 /CUMM (4.20-5.40); WHITE BLOOD CELL COUNT 6.4 /CUMM (4.8-10.8)
--- NOTE | 2017-03-08 10:24 | Cons- Pulmonary ---
General Information and HPI Consulting Request Date of Consult: 03/08/17 Requested By: med team History of Present Illness: 87 year old female with atrial fibrillation, pulmonary embolism, COPD, HLD, tachybradyarrhythmia s/p pacer, hypothyroidism, seizure disorder, presents with altered mental status, dyspnea and increasing generalized edema. Patient is unable to provide any history due to her clinical condition. Patient was recently hospitalized at [facility] last month with bowel obstruction, significant hypothyroidism and atrial fibrillation with RVR s/p permanent pacer placement. Patient was transferred to ER today from [facility] for altered mental status and edema. Patient's respiratory status has declined was on room air at [facility] and is now on supplemental oxygen. CT scan in ER shows large bilateral effusion and lobar collapse. ROS unobtainable Allergies/Medications Allergies: Coded Allergies: clarithromycin (N/V PER PT DAUGHTER 01/25/17) nitrofurantoin (N/V 01/25/17) Home Med List: Acetaminophen 325 MG CAPSULE 1 CAP PO PRN PAIN (Reported) Diltiazem HCl (Cardizem Cd) 120 MG CAP.ER.24H 360 MG PO DAILY HEART HEALTH Furosemide (Lasix) 20 MG TABLET 1 TAB PO DAILY leg swelling hold for SBP<90 Melatonin 3 MG TABLET 1 TAB PO QHS SLEEP (Reported) Phenytoin (Dilantin) 100 MG CAPSULE 2 CAP PO BID SEIZURES (Reported) Simvastatin (Simvastatin*) 20 MG TABLET 1 TAB PO QPM PREVENTATIVE (Reported) Thyroid,Pork ([place] Thyroid) 240 MG TABLET 120 MG PO DAILY THYROID (Reported ) Warfarin Sodium (Coumadin) 2.5 MG TABLET 1 TAB PO 1700 BLOOD THINNER ( Reported) Review of Systems Review of Systems Constitutional: Reports: see HPI. 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 Needs Assist: bathing. Ambulation: after fall patient has been largely non ambulatory. IADLs Independent: medication admin. Needs Assist: housework, food prep, transportation. Unknown: shopping, finances, telephone. Exam & Diagnostic Data Last 24 Hrs of Vital Signs/I&O Vital Signs Date Time Temp Pulse Resp B/P B/P Pulse O2 O2 Flow FiO2 Mean Ox Delivery Rate 03/08 0657 96.1 111 20 90/69 94 Nasal 4.0L Cannula 03/08 0234 96.0 110 24 100/60 90 Nasal 4.0L Cannula 03/08 0206 Nasal 4.0L Cannula 03/08 0055 97.6 85 20 117/68 94 Nasal 4.0L Cannula / 2146 97.0 97 20 125/73 93 Nasal 4.0L Cannula 03/079 97.1 103 20 124/70 93 Nasal 4.0L Cannula 03/07 1952 97.0 03/07 1941 82 20 108/60 91 Nasal 4.0L Cannula 03/07 1854 92 Nasal 4.0L Cannula 03/07 1834 95 Nasal 4.0L Cannula / 1833 97.1 79 20 100/46 95 Nasal 4.0L Cannula Intake & Output 03/08 1600 07/ 0800 03/08 0000 Intake Total 250 Output Total 1200 Balance -950 Intake, IV 250 Intake, Oral 0 Number 1 Bowel Movements Output, Urine 1200 Patient 180 lb Weight Weight Estimated Measurement Method Last 48 Hrs of Labs/Kurt: Laboratory Tests 03/08/17 0955: Lactic Acid Pending 03/08/17 0955: Sodium Pending, Potassium Pending, Chloride Pending, Carbon Dioxide Pending, Anion Gap Pending, BUN Pending, Creatinine Pending, BUN/Creatinine Ratio Pending , Troponin I Pending 03/08/17 0855: PT Pending, INR Pending, CBC w Diff Pending, WBC Pending, RBC Pending, Hgb Pending, Hct Pending, MCV Pending, MCH Pending, RDW Pending, Plt Count Pending, MPV Pending, PUBS MCHC Pending 03/08/17 0230: pH 7.41, pCO2 39, pO2 68 L, HCO3 24, ABG O2 Sat (Measured) 94.0 L, P-50 (Temp Corrected) N, Carboxyhemoglobin 0.7 L, O2 Concentration % 3L, O2 Delivery Method N/C, Troponin I 0.06, Phlebotomy Draw Site RIGHT RADIAL 03/08/17 0020: Lactic Acid 1.7, PT 44.1 *H, INR 4.26 *H, CBC w Diff , RBC 4.39, MCV 88.9, MCH 28.0, RDW 18.3 H, MPV 10.1, Gran % 83.7 H, Lymphocytes % 6.1 L, Monocytes % 9.6 H, Eosinophils % 0.2, Basophils % 0.4, Absolute Granulocytes 5.1, Absolute Lymphocytes 0.4 L, Absolute Monocytes 0.6, Absolute Eosinophils 0, Absolute Basophils 0, PUBS MCHC 31.5 L 03/07/17 2105: Urine Opiates Screen < 100.00, Methadone Screen 64, Barbiturate Screen 90, Ur Phencyclidine Scrn < 6.00, Amphetamines Screen < 100, U Benzodiazepines Scrn < 85, Urine Cocaine Screen < 50, Urine Cannabis Screen < 5.00, Urinalysis LIGHT H , Urine Color YEL, Urine Clarity CLDY H, Urine pH 5.5, Ur Specific [place] 1.020, Urine Protein TRACE H, Urine Ketones NEG, Urine Nitrite NEG, Urine Bilirubin NEG, Urine Urobilinogen 0.2, Ur Leukocyte Esterase MOD H, Ur Microscopic SEDIMENT EXAMINED, Urine RBC RARE, Urine WBC 5-10 H, Ur Epithelial Cells MANY H, Urine Bacteria MANY H, Urine Hemoglobin TRACE-LYSED, Urine Glucose NEG 03/07/17 1901: Anion Gap 6, Estimated GFR > 60, BUN/Creatinine Ratio 50.0 H, Glucose 101 H, Calcium 8.2 L, Total Bilirubin 0.7, AST 43 H, ALT 40, Alkaline Phosphatase 197 H, Troponin I 0.06, [id number] Pept 3630 H, Total Protein 6.1 L, Albumin 2.7 L, Globulin 3.4, Albumin/Globulin Ratio 0.8 L, Free T4 0.73 L, Total T3 1.02, TSH &T3 &Free T4 Intrp 21.200 H Assessment/Plan Impression/Plan: CT chest IMPRESSION: 1. Moderate to large right-sided pleural effusion, moderate left-sided pleural effusion. 2. Right lower lobe is completely collapsed, the majority of the left lower lobe basilar segments are also nearly completely collapsed. 3. Indeterminate groundglass opacities in the upper lobes likely related to atelectasis. Pulmonary edema neoplastic and infectious etiology less likely though not excluded. 4. Extensive soft tissue edema left side greater than right extending into the left breast age and etiology indeterminate. 5. No aggressive osseous lesions. DICTATED BY: MARIO KWON MD General Appearance Moderate Distress Skin left arm weeping edema, decub noted HEENT PERRLA, EOMI Neck Supple Cardiovascular irregular rhythm Lungs no breath sounds on RLL, b/l crackles Abdomen edematous soft abdomen Neurological groaning HWANG, unresponsive to voice Extremities No Clubbing (anasarca) IMPRESSION This is an 87-year-old lady with previous history of [id number] smoking history, emphysema as noted in the CAT scan, 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 Her issues include * Bilateral pleural effusions with generalized anasarca most likely related to significant hypothyroidism, diastolic dysfunction with hyperalbuminemia. No clinical evidence suggestive of significant emphysema or any infection * Significant COPD with no active wheezing, no significant CO2 retention * Bilateral atelectasis related to large pleural effusions * Remote history of pulmonary embolism with no clinical evidence suggestive of active venous thromboembolism and patient is appropriately anticoagulated * Profound hypothyroidism most likely contributing to her anasarca and edema * Altered mental status with multiple issues including history of previous seizure, TIA, negative CT scan at this time * Supratherapeutic INR * Diastolic heart failure which appears to be acute on chronic * No clinical evidence suggestive of significant nephrotic syndrome * Decubiti ulcer related to multiple factors as noted above RECOMMENDATION * Continue levothyroxine * Increase Lasix to every 12 intravenously * Can hold antibiotics and observe * Hold warfarin will consider therapeutic and diagnostic thoracentesis once INR is better * Could give 2 mg vitamin K by mouth * Endocrine evaluation * Watch blood pressure and other vital signs and C BC carefully as she is becoming thrombocytopenic as well * Aggressive bowel regimen * Continue Dilantin * Check Dilantin level again Will follow closely Goals of care needs to be addressed Consult Acknowledgment - Thank you for your consult request.
[2017-03-08 10:42] LABS: PT 42.9 SEC (9.4-12.5)
[2017-03-08 14:47] VITALS: BP 90/64
--- NOTE | 2017-03-08 17:20 | Cons- Cardiology ---
General Information and HPI Consulting Request Date of Consult: 03/08/17 Requested By: LETA GAMBINO MD Reason for Consult: Anasarca. Source of Information: old records Exam Limitations: unable to give history, clinical condition History of Present Illness: Mrs. Cherelle Hansen is an 87-y-o-w-f w/ a hx of tobacco use, COPD, hypothyroidism, HLD, Sz disorder, possible TIA, pul embolism w/ warfarin anticoagulation and remote brief bouts of AF who was recently hospitalized here twice and who returns from her STR facility with altered mental status and who was found to have anasarca. 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 At present, she can give no history. Allergies/Medications Allergies: Coded Allergies: clarithromycin (N/V PER PT DAUGHTER 01/25/17) nitrofurantoin (N/V 01/25/17) Home Med List: Acetaminophen 325 MG CAPSULE 1 CAP PO PRN PAIN (Reported) Diltiazem HCl (Cardizem Cd) 120 MG CAP.ER.24H 360 MG PO DAILY HEART HEALTH Furosemide (Lasix) 20 MG TABLET 1 TAB PO DAILY leg swelling hold for SBP<90 Melatonin 3 MG TABLET 1 TAB PO QHS SLEEP (Reported) Phenytoin (Dilantin) 100 MG CAPSULE 2 CAP PO BID SEIZURES (Reported) Simvastatin (Simvastatin*) 20 MG TABLET 1 TAB PO QPM PREVENTATIVE (Reported) Thyroid,Pork ([place] Thyroid) 240 MG TABLET 120 MG PO DAILY THYROID (Reported ) Warfarin Sodium (Coumadin) 2.5 MG TABLET 1 TAB PO 1700 BLOOD THINNER ( Reported) Review of Systems Review of Systems: Unobtainable, due to patient's clinical status. 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 Needs Assist: bathing. Ambulation: after fall patient has been largely non ambulatory. IADLs Independent: medication admin. Needs Assist: housework, food prep, transportation. Unknown: shopping, finances, telephone. Exam & Diagnostic Data Vital Signs and I&O Vital Signs Date Time Temp Pulse Resp B/P B/P Pulse O2 O2 Flow FiO2 Mean Ox Delivery Rate 03/08 1447 96.0 101 20 90/64 93 Nasal 4.0L Cannula / 0657 96.1 111 20 90/69 94 Nasal 4.0L Cannula / 0234 96.0 110 24 100/60 90 Nasal 4.0L Cannula 03/08 0206 Nasal 4.0L Cannula / 0055 97.6 85 20 117/68 94 Nasal 4.0L Cannula 07/05 2146 97.0 97 20 125/73 93 Nasal 4.0L Cannula / 2029 97.1 103 20 124/70 93 Nasal 4.0L Cannula 03/07 1952 97.0 / 1941 82 20 108/60 91 Nasal 4.0L Cannula / 1854 92 Nasal 4.0L Cannula / 1834 95 Nasal 4.0L Cannula / 1833 97.1 79 20 100/46 95 Nasal 4.0L Cannula Intake & Output / 1600 07/06 0800 07/06 0000 07/05 1600 07/05 0800 07/ 0000 Intake Total 250 Output Total 400 1200 Balance -400 -950 Intake, IV 250 Intake, Oral 0 Number 1 Bowel Movements Output, Urine 400 1200 Patient 180 lb 180 lb Weight Weight Estimated Measurement Method Physical Exam: Chronically ill-appearing elderly female who is moaning and unable to answer questions. . Vital signs: See above. HEENT: Normocephalic, atraumatic, EOMI, dry mucous membranes. Neck: No JVD, no bruits. Lungs: Decreased breath sounds bilaterally. Heart: S1, S2 with grade 1/6 systolic murmur. Extremities: Positive edema. Labs/Kurt Results: Laboratory Tests 03/08 03/08 03/08 0955 0955 0855 Chemistry Sodium (137 - 145 mmol/L) 139 Potassium (3.5 - 5.1 mmol/L) 4.6 Chloride (98 - 107 mmol/L) 102 Carbon Dioxide (22 - 30 mmol/L) 30 Anion Gap (5 - 16) 7 BUN (7 - 17 mg/dL) 42 H Creatinine (0.5 - 1.0 mg/dL) 0.8 Estimated GFR (>60 ml/min) > 60 BUN/Creatinine Ratio (7 - 25 %) 52.5 H Lactic Acid (0.7 - 2.1 mmol/L) 1.7 Troponin I (< 0.11 ng/ml) 0.06 Coagulation PT (9.4 - 12.5 SEC) 42.9 *H INR (0.90 - 1.19) 4.14 *H Hematology CBC w Diff MAN DIFF ORDERED WBC (4.8 - 10.8 /CUMM) 6.4 RBC (4.20 - 5.40 /CUMM) 4.27 Hgb (12.0 - 16.0 G/DL) 12.2 Hct (37 - 47 %) 38.7 MCV (81.0 - 99.0 FL) 90.7 MCH (27.0 - 31.0 PG) 28.5 RDW (11.5 - 14.5 %) 18.7 H Plt Count (130 - 400 /CUMM) 119 L MPV (7.4 - 10.4 FL) 9.8 Gran % (42.2 - 75.2 %) 83.7 H Lymphocytes % (20.5 - 51.1 %) 5.2 L Monocytes % (1.7 - 9.3 %) 10.5 H Eosinophils % (0 - 5 %) 0.5 Basophils % (0.0 - 2.0 %) 0.1 Absolute Granulocytes (1.4 - 6.5 /CUMM) 5.3 Segmented Neutrophils (42.2 - 75.2 %) 82 H Band Neutrophils (0.0 - 5.0 %) 5 Absolute Lymphocytes (1.2 - 3.4 /CUMM) 0.3 L Lymphocytes (20.5 - 51.1 %) 4 L Monocytes (1.7 - 9.3 %) 9 Absolute Monocytes (0.10 - 0.60 /CUMM) 0.7 H Absolute Eosinophils (0.0 - 0.7 /CUMM) 0 Absolute Basophils (0.0 - 0.2 /CUMM) 0 Nucleated RBCs (0.0 - 0.0 /100WBC) 1 H Platelet Estimate (ADEQUATE) DECREASED Normocytic RBCs VERIFIED Normochromic RBCs VERIFIED PUBS MCHC (33.0 - 37.0 G/DL) 31.5 L 03/08 07/ 0230 0020 Blood Gas pH (7.35 - 7.45 PH) 7.41 pCO2 (35 - 45 TORR) 39 pO2 (80 - 100 TORR) 68 L HCO3 (21 - 28 MEQ/L) 24 ABG O2 Sat (Measured) (>96.0 %) 94.0 L P-50 (Temp Corrected) N Carboxyhemoglobin (1.5 - 5.0 %) 0.7 L O2 Concentration % 3L O2 Delivery Method N/C Chemistry Lactic Acid (0.7 - 2.1 mmol/L) 1.7 Troponin I (< 0.11 ng/ml) 0.06 Coagulation PT (9.4 - 12.5 SEC) 44.1 *H INR (0.90 - 1.19) 4.26 *H Hematology CBC w Diff WBC (4.8 - 10.8 /CUMM) 6.1 RBC (4.20 - 5.40 /CUMM) 4.39 Hgb (12.0 - 16.0 G/DL) 12.3 Hct (37 - 47 %) 39.0 MCV (81.0 - 99.0 FL) 88.9 MCH (27.0 - 31.0 PG) 28.0 RDW (11.5 - 14.5 %) 18.3 H Plt Count (130 - 400 /CUMM) 134 MPV (7.4 - 10.4 FL) 10.1 Gran % (42.2 - 75.2 %) 83.7 H Lymphocytes % (20.5 - 51.1 %) 6.1 L Monocytes % (1.7 - 9.3 %) 9.6 H Eosinophils % (0 - 5 %) 0.2 Basophils % (0.0 - 2.0 %) 0.4 Absolute Granulocytes (1.4 - 6.5 /CUMM) 5.1 Absolute Lymphocytes (1.2 - 3.4 /CUMM) 0.4 L Absolute Monocytes (0.10 - 0.60 /CUMM) 0.6 Absolute Eosinophils (0.0 - 0.7 /CUMM) 0 Absolute Basophils (0.0 - 0.2 /CUMM) 0 PUBS MCHC (33.0 - 37.0 G/DL) 31.5 L Miscellaneous Phlebotomy Draw Site RIGHT RADIAL 03/07 03/07 2105 1901 Chemistry Sodium (137 - 145 mmol/L) 136 L Potassium (3.5 - 5.1 mmol/L) 5.0 Chloride (98 - 107 mmol/L) 104 Carbon Dioxide (22 - 30 mmol/L) 26 Anion Gap (5 - 16) 6 BUN (7 - 17 mg/dL) 40 H Creatinine (0.5 - 1.0 mg/dL) 0.8 Estimated GFR (>60 ml/min) > 60 BUN/Creatinine Ratio (7 - 25 %) 50.0 H Glucose (65 - 99 mg/dL) 101 H Calcium (8.4 - 10.2 mg/dL) 8.2 L Total Bilirubin (0.2 - 1.3 mg/dL) 0.7 AST (14 - 36 U/L) 43 H ALT (9 - 52 U/L) 40 Alkaline Phosphatase (<127 U/L) 197 H Troponin I (< 0.11 ng/ml) 0.06 [id number] Pept (<125 pg/mL) 3630 H Total Protein (6.3 - 8.2 g/dL) 6.1 L Albumin (3.5 - 5.0 g/dL) 2.7 L Globulin (1.9 - 4.2 gm/dL) 3.4 Albumin/Globulin Ratio (1.1 - 2.2 %) 0.8 L Free T4 (0.85 - 1.93 ng/dL) 0.73 L Total T3 (0.97 - 1.69 ng/mL) 1.02 TSH &T3 &Free T4 Intrp (0.270 - 4.20 uIU/mL) 21.200 H Toxicology Urine Opiates Screen (>2000 NG/ML) < 100.00 Methadone Screen (>300 NG/ML) 64 Barbiturate Screen (>200 NG/ML) 90 Ur Phencyclidine Scrn (>25 NG/ML) < 6.00 Amphetamines Screen (>1000 NG/ML) < 100 U Benzodiazepines Scrn (>200 NG/ML) < 85 Urine Cocaine Screen (>300 NG/ML) < 50 Urine Cannabis Screen (>50 NG/ML) < 5.00 Urines Urinalysis LIGHT H Urine Color (YEL,AMB,STR) YEL Urine Clarity (CLEAR) CLDY H Urine pH (5.0 - 8.0) 5.5 Ur Specific [place] (1.001 - 1.035) 1.020 Urine Protein (NEG,<30 MG/DL) TRACE H Urine Ketones (NEG) NEG Urine Nitrite (NEG) NEG Urine Bilirubin (NEG) NEG Urine Urobilinogen (0.1 - 1.0 EU/dl) 0.2 Ur Leukocyte Esterase (NEG) MOD H Ur Microscopic SEDIMENT EXAMINED Urine RBC (0 - 5 /HPF) RARE Urine WBC (0 - 2 /HPF) 5-10 H Ur Epithelial Cells (NONE,FEW) MANY H Urine Bacteria (NEG/NONE) MANY H Urine Hemoglobin (NEG) TRACE-LYSED Urine Glucose (N MG/DL) NEG Diagnostic Data EKG Results (03/08/2017) atrial fibrillation, diffuse low voltage, late precordial transition, diffuse nondiagnostic T-wave abnormalities. Other Results Chest CT without IV contrast (03/07/2017): 1. Moderate to large right-sided pleural effusion, moderate left-sided pleural effusion. 2. Right lower lobe is completely collapsed, the majority of the left lower lobe basilar segments are also nearly completely collapsed. 3. Indeterminate groundglass opacities in the upper lobes likely related to atelectasis. Pulmonary edema neoplastic and infectious etiology less likely though not excluded. 4. Extensive soft tissue edema left side greater than right extending into the left breast age and etiology indeterminate. 5. No aggressive osseous lesions. Head CT (03/08/2017): No acute intracranial pathology. Echocardiogram (01/14/2017): Normal size left ventricle. Mild concentric left ventricular hypertrophy. No obvious regional wall motion abnormalities. Normal left ventricular ejection fraction visually estimated at > 60%. Normal right ventricular size and function. Mild to moderate atrial dilatation. Mild mitral regurgitation. Mild aortic regurgitation. Moderate tricuspid regurgitation. Right ventricular systolic pressure estimated at 36 mmHg. Small pericardial effusion. Dilated inferior vena cava. Assessment/Plan Assessment/Plan 87-y-o-w-f w/ a hx of tobacco use, COPD, hypothyroidism, HLD, Sz disorder, possible TIA, pul embolism w/ warfarin anticoagulation and remote brief bouts of AF who was recently hospitalized here twice and who returns from her STR facility w/ AMS/hypoxemia and who was found to have anasarca w/ evidence of bilateral pleural effusionsand profound hypothyroidism despite replacement. She reportedly received IV Furosemide 80 mg 1 in the ED and is now being given Furosemide 40 mg twice daily for suspected acute diastolic heart failure. Recommendations: * Telemetry admission, follow-up troponins, follow-up ECGs. * Strict input/output's and daily weights. * Hold by mouth Furosemide for the short-term. * Hold Warfarin and follow-up INR in anticipation of probable thoracentesis. * Oral Vitamin K if necessary to reverse anticoagulation. * Continue IV Diltiazem for tighter control of the ventricular response to her AF. * May need limited echocardiogram to reassess left ventricular function. * Suspect her pacemaker is functioning properly, but will have the device interrogated to be sure. * Check magnesium, glycosylated hemoglobin A1c, follow up platelets, clean catch urine for culture, etc. * Endocrine consultation for marked hypothyroidism. * DVT prophylaxis being addressed by Warfarin anticoagulation for her atrial fibrillation. Further recommendations will follow, Thank you. Consult Acknowledgment - Thank you for your consult request.
--- NOTE | 2017-03-08 21:49 | Cons- Endocrinology ---
General Information and HPI Consulting Request Date of Consult: 03/08/17 Requested By: Medical team Reason for Consult: management of hypothyroidism Source of Information: family, old records Exam Limitations: confusion History of Present Illness: 87 yo female with PMH of COPD, hypothyroidism, hyperlipidemia, seizure disorder, possible TIA, pulmonary emoblus, and frequent UTI, who was admitted to after she had a mechanical fall on 02/14/2017. Patient was readmitted last night for altered mental status, significant sweling and dyspnea. Blood work showed TSH 21.2, free T 4 0.73 and TT3 1.02. [facility] [place] thyroid 120 mg daily. Allergies/Medications Allergies: Coded Allergies: clarithromycin (N/V PER PT DAUGHTER 01/25/17) nitrofurantoin (N/V 01/25/17) Home Med List: Acetaminophen 325 MG CAPSULE 1 CAP PO PRN PAIN (Reported) Diltiazem HCl (Cardizem Cd) 120 MG CAP.ER.24H 360 MG PO DAILY HEART HEALTH Furosemide (Lasix) 20 MG TABLET 1 TAB PO DAILY leg swelling hold for SBP<90 Melatonin 3 MG TABLET 1 TAB PO QHS SLEEP (Reported) Phenytoin (Dilantin) 100 MG CAPSULE 2 CAP PO BID SEIZURES (Reported) Simvastatin (Simvastatin*) 20 MG TABLET 1 TAB PO QPM PREVENTATIVE (Reported) Thyroid,Pork ([place] Thyroid) 240 MG TABLET 120 MG PO DAILY THYROID (Reported ) Warfarin Sodium (Coumadin) 2.5 MG TABLET 1 TAB PO 1700 BLOOD THINNER ( Reported) Review of Systems Review of Systems Constitutional: Reports: see HPI. 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 Needs Assist: bathing. Ambulation: after fall patient has been largely non ambulatory. IADLs Independent: medication admin. Needs Assist: housework, food prep, transportation. Unknown: shopping, finances, telephone. Exam & Diagnostic Data Last 24 Hrs of Vital Signs/I&O Vital Signs Date Time Temp Pulse Resp B/P B/P Pulse O2 O2 Flow FiO2 Mean Ox Delivery Rate 03/08 1447 96.0 101 20 90/64 93 Nasal 4.0L Cannula 03/08 0657 96.1 111 20 90/69 94 Nasal 4.0L Cannula 03/08 0234 96.0 110 24 100/60 90 Nasal 4.0L Cannula 03/08 0206 Nasal 4.0L Cannula 03/08 0055 97.6 85 20 117/68 94 Nasal 4.0L Cannula Intake & Output 03/08 1600 03/08 0800 03/08 0000 Intake Total 60 250 Output Total 400 1200 Balance -340 -950 Intake, IV 60 250 Intake, Oral 0 0 Number 1 1 Bowel Movements Output, Urine 400 1200 Patient 180 lb 180 lb Weight Weight Bhargavi Lift Estimated Measurement Method Physical Exam General Appearance: cachetic, lethargic Respiratory: decreased breath sounds Cardiovascular: tachycardia (mild) Gastrointestinal: soft, distention Extremities: swelling Skin: lesions on her left arm Labs/Kurt Results: Laboratory Tests 03/08 03/08 03/08 0955 0955 0855 Chemistry Sodium (137 - 145 mmol/L) 139 Potassium (3.5 - 5.1 mmol/L) 4.6 Chloride (98 - 107 mmol/L) 102 Carbon Dioxide (22 - 30 mmol/L) 30 Anion Gap (5 - 16) 7 BUN (7 - 17 mg/dL) 42 H Creatinine (0.5 - 1.0 mg/dL) 0.8 Estimated GFR (>60 ml/min) > 60 BUN/Creatinine Ratio (7 - 25 %) 52.5 H Lactic Acid (0.7 - 2.1 mmol/L) 1.7 Troponin I (< 0.11 ng/ml) 0.06 Coagulation PT (9.4 - 12.5 SEC) 42.9 *H INR (0.90 - 1.19) 4.14 *H Hematology CBC w Diff MAN DIFF ORDERED WBC (4.8 - 10.8 /CUMM) 6.4 RBC (4.20 - 5.40 /CUMM) 4.27 Hgb (12.0 - 16.0 G/DL) 12.2 Hct (37 - 47 %) 38.7 MCV (81.0 - 99.0 FL) 90.7 MCH (27.0 - 31.0 PG) 28.5 RDW (11.5 - 14.5 %) 18.7 H Plt Count (130 - 400 /CUMM) 119 L MPV (7.4 - 10.4 FL) 9.8 Gran % (42.2 - 75.2 %) 83.7 H Lymphocytes % (20.5 - 51.1 %) 5.2 L Monocytes % (1.7 - 9.3 %) 10.5 H Eosinophils % (0 - 5 %) 0.5 Basophils % (0.0 - 2.0 %) 0.1 Absolute Granulocytes (1.4 - 6.5 /CUMM) 5.3 Segmented Neutrophils (42.2 - 75.2 %) 82 H Band Neutrophils (0.0 - 5.0 %) 5 Absolute Lymphocytes (1.2 - 3.4 /CUMM) 0.3 L Lymphocytes (20.5 - 51.1 %) 4 L Monocytes (1.7 - 9.3 %) 9 Absolute Monocytes (0.10 - 0.60 /CUMM) 0.7 H Absolute Eosinophils (0.0 - 0.7 /CUMM) 0 Absolute Basophils (0.0 - 0.2 /CUMM) 0 Nucleated RBCs (0.0 - 0.0 /100WBC) 1 H Platelet Estimate (ADEQUATE) DECREASED Normocytic RBCs VERIFIED Normochromic RBCs VERIFIED PUBS MCHC (33.0 - 37.0 G/DL) 31.5 L 03/08 03/08 0230 0020 Blood Gas pH (7.35 - 7.45 PH) 7.41 pCO2 (35 - 45 TORR) 39 pO2 (80 - 100 TORR) 68 L HCO3 (21 - 28 MEQ/L) 24 ABG O2 Sat (Measured) (>96.0 %) 94.0 L P-50 (Temp Corrected) N Carboxyhemoglobin (1.5 - 5.0 %) 0.7 L O2 Concentration % 3L O2 Delivery Method N/C Chemistry Lactic Acid (0.7 - 2.1 mmol/L) 1.7 Troponin I (< 0.11 ng/ml) 0.06 Coagulation PT (9.4 - 12.5 SEC) 44.1 *H INR (0.90 - 1.19) 4.26 *H Hematology CBC w Diff WBC (4.8 - 10.8 /CUMM) 6.1 RBC (4.20 - 5.40 /CUMM) 4.39 Hgb (12.0 - 16.0 G/DL) 12.3 Hct (37 - 47 %) 39.0 MCV (81.0 - 99.0 FL) 88.9 MCH (27.0 - 31.0 PG) 28.0 RDW (11.5 - 14.5 %) 18.3 H Plt Count (130 - 400 /CUMM) 134 MPV (7.4 - 10.4 FL) 10.1 Gran % (42.2 - 75.2 %) 83.7 H Lymphocytes % (20.5 - 51.1 %) 6.1 L Monocytes % (1.7 - 9.3 %) 9.6 H Eosinophils % (0 - 5 %) 0.2 Basophils % (0.0 - 2.0 %) 0.4 Absolute Granulocytes (1.4 - 6.5 /CUMM) 5.1 Absolute Lymphocytes (1.2 - 3.4 /CUMM) 0.4 L Absolute Monocytes (0.10 - 0.60 /CUMM) 0.6 Absolute Eosinophils (0.0 - 0.7 /CUMM) 0 Absolute Basophils (0.0 - 0.2 /CUMM) 0 PUBS MCHC (33.0 - 37.0 G/DL) 31.5 L Miscellaneous Phlebotomy Draw Site RIGHT RADIAL Assessment/Plan Assessment/Plan 87 yo female with PMH of COPD, hypothyroidism, hyperlipidemia, seizure disorder, possible TIA, pulmonary emoblus, and frequent UTI, who was admitted to after she had a mechanical fall on 02/14/2017. Patient was readmitted last night for altered mental status, significant sweling and dyspnea. Blood work showed TSH 21.2, free T 4 0.73 and TT3 1.02. [facility] she [facility] on [place] thyroid 120 mg daily. management of hypothyroidism: 1. recommend restarting Levothyroxine 100 mcg iv daily; 2. monitor HR; 3. monitor free T4 in 2 days and then her thyroid medication will be adjusted accordingly. 4. nutritional support. will follow Consult Acknowledgment - Thank you for your consult request.
--- NOTE | 2017-03-08 22:06 | PN- Att Addend ---
Attending Addendum Attending Brief Note S: The patient was more arousable later in morning and able to communicate after hearing aids brought in by daughter. Patient was reluctant to take applesauce from us in the morning as she was concerned that there was medication in it. She took it from her daughter. O: VS: Vital Signs Date Time Temp Pulse Resp B/P B/P Pulse O2 O2 Flow FiO2 Mean Ox Delivery Rate 03/08 1447 96.0 101 20 90/64 93 Nasal 4.0L Cannula Intake & Output 03/08 1600 Intake Total 60 Output Total 400 Balance -340 Intake, IV 60 Intake, Oral 0 Number 1 Bowel Movements Output, Urine 400 Patient 180 lb Weight Weight Bhargavi Lift Measurement Method Current Medications Sig/Liudmila Start time Last Medication Dose Route Stop Time Status Admin Acetaminophen 650 MG Q6P PRN 03/08 0115 AC PO Acetaminophen 1,000 MG Q6P PRN 03/08 0115 AC 03/08 IV 0918 Bisacodyl 10 MG ONCE ONE 03/08 0130 DC LA 03/08 0131 Ceftazidime 1,000 MG Q12H 03/08 0200 DC 03/08 IV 0251 Collagenase 1 ANUPAM DAILY 03/08 1400 AC 03/08 TOP 1749 Furosemide 40 MG 7:30 AM, & 4:30 PM 03/08 0730 AC 03/08 IV 1749 Levothyroxine Sodium 100 MCG DAILY AC 03/09 0700 DC IV Levothyroxine Sodium 100 MCG DAILY 03/08 1030 AC 03/08 IV 1057 Levothyroxine Sodium 200 MCG DAILY AC 03/08 0700 DC IV Phenytoin 100 MG BID 03/08 1000 AC 03/08 Sodium Chloride 50 ML IV 2143 Phytonadione 2.5 MG ONCE ONE 03/08 1745 DC 03/08 SC 03/08 1746 1750 Phytonadione 2.5 MG ONCE ONE 03/08 1615 CAN IV 03/08 1616 Phytonadione 2.5 MG ONCE ONE 03/08 1145 CAN PO 03/08 1146 Vancomycin HCl 1,250 MG 0200 03/08 0200 DC 03/08 Sodium Chloride 250 ML IV 0233 HEENT: rory- dry mucosa w/o lesions Chest: diminshed BS at bases Cor: RRR, nl S1, S2 w/o murm Abd: BS+, soft, NT Ext: diffuse edema 3+/anasarca Derm: as per wound care- decubitus lower back, left arm skin tear Labs: Laboratory Tests 03/08/17 0955: Lactic Acid 1.7 03/08/17 0955: Anion Gap 7, Estimated GFR > 60, BUN/Creatinine Ratio 52.5 H, Troponin I 0.06 03/08/17 0855: PT 42.9 *H, INR 4.14 *H, CBC w Diff MAN DIFF ORDERED, RBC 4.27, MCV 90.7, MCH 28.5, RDW 18.7 H, MPV 9.8, Gran % 83.7 H, Lymphocytes % 5.2 L, Monocytes % 10.5 H, Eosinophils % 0.5, Basophils % 0.1, Absolute Granulocytes 5.3, Segmented Neutrophils 82 H, Band Neutrophils 5, Absolute Lymphocytes 0.3 L, Lymphocytes 4 L, Monocytes 9, Absolute Monocytes 0.7 H, Absolute Eosinophils 0 , Absolute Basophils 0, Nucleated RBCs 1 H, Platelet Estimate DECREASED, Normocytic RBCs VERIFIED, Normochromic RBCs VERIFIED, PUBS MCHC 31.5 L 03/08/17 0230: pH 7.41, pCO2 39, pO2 68 L, HCO3 24, ABG O2 Sat (Measured) 94.0 L, P-50 (Temp Corrected) N, Carboxyhemoglobin 0.7 L, O2 Concentration % 3L, O2 Delivery Method N/C, Troponin I 0.06, Phlebotomy Draw Site RIGHT RADIAL 03/08/17 0020: Lactic Acid 1.7, PT 44.1 *H, INR 4.26 *H, CBC w Diff , RBC 4.39, MCV 88.9, MCH 28.0, RDW 18.3 H, MPV 10.1, Gran % 83.7 H, Lymphocytes % 6.1 L, Monocytes % 9.6 H, Eosinophils % 0.2, Basophils % 0.4, Absolute Granulocytes 5.1, Absolute Lymphocytes 0.4 L, Absolute Monocytes 0.6, Absolute Eosinophils 0, Absolute Basophils 0, PUBS MCHC 31.5 L Microbiology 03/08 300 LOWER RESP: Respiratory Culture - COLB 03/08 300 LOWER RESP: Gram Stain - COLB Impression/Plan: #Anasarca/Edema- multifactorial- ? secondary to hypothyroidism, malnutrition ( albumin low), ? CHF. Plan: Will correct underlying disorders - IV Levothyroxine, Lasix, nutrition consult/supplements. #Pulmonary/Pleural Effusion- Appreciate pulmonary evaluation. Dr. Man does not believe there is significant pneumonia. Plan: Discontinue antibiotics as per Dr. Man. #Coagulopathy- INR supratherapeutic. May need eventual thoracentesis. Plan: Vitamin K as per Dr. Man and follow-up INR. #Hypothyroid- patient was switched form Levothyroxine back to [place] Thyroid as per Dr. Pillai. Daughter states patient had "nausea" from Levothyroxine? Plan: IV Levothyroxine as per Endocrinology. Follow-up Free T4 03/10. #Malnutrition- progressive decline in alb and po intake at SNF has been poor. Plan: Nutrition consult, speech therapy consult. Encourage supplements. Daughter states she like strawberry ice cream- may consider mix with Ensure.
[2017-03-08 23:50] VITALS: BP 90/60
[2017-03-09 06:00] VITALS: BP 100/60
--- NOTE | 2017-03-09 07:11 | PN- Housestaff ---
See Addendum Subjective Follow-up For: 1. Altered mental status 2 CHF 3. Hypothyroidism 4. Decubitus ulcer Complaints: was unobtainable due to altered mental status Tele-Events Since Last Visit: a fib, 100-120 no events Subjective: I have personally seen and examined Savita Mcneill at bedside this morning, she looks disoriented ,dehydrated and was unable to provide history Review of Systems Constitutional: Denies: no symptoms (can't be assessed, ). Objective Last 24 Hrs of Vital Signs/I&O Vital Signs Date Time Temp Pulse Resp B/P B/P Pulse O2 O2 Flow FiO2 Mean Ox Delivery Rate 03/09 0800 94 Nasal 4.0L Cannula 03/09 0600 120 20 100/60 92 Nasal 4.0L Cannula 03/09 0000 Nasal 4.0L Cannula 03/08 2350 97.0 114 24 90/60 92 Nasal 4.0L Cannula Intake & Output 03/09 1600 03/09 0800 03/09 0000 Intake Total 120 0 Output Total 450 800 Balance 120 -450 -800 Intake, IV 120 Intake, Oral 0 Number 1 Bowel Movements Output, Urine 450 800 Patient 208 lb Weight Weight Bhargavi Lift Measurement Method Physical Exam General Appearance: pt is still disoriented and not alert, a little more cooperative than yesterday Skin: No Rashes, No Breakdown, No Significant Lesion, very dry , bed sore 2X3 in sacral area, Skin Temp/Moisture Exam: Warm/Dry HEENT: Atraumatic, PERRLA Neck: Supple Cardiovascular: Normal S1, Normal S2, No Murmurs, irregular irregular Lungs: decreased air entry, wheezes and crepitation Abdomen: Normal Bowel Sounds, Soft, No Tenderness Neurological: couldn't be assessed due to pt mental status Extremities: 2+ bilat pitting edema Assessment/Plan Assessment: assessment: 87 year old lady with atrial fibrillation, COPD, HLD, arrhythmia s/p pacer, hypothyroidism, seizure disorder,Patient was recently hospitalized at [facility] last month with bowel obstruction, significant hypothyroidism and atrial fibrillation she presented yesterday with altered mental status, dyspnea and increasing generalized edema. patient this morning was completely disoriented and dehydrated.and couldn't give any history problems and plan: 1. Altered mental status: might be due dehydration, electrolyte imbalance( as the patient was not able to eat or drink or it might be due to hypoxic respiratory failure infection secondary to fluid accumilation in the lung as the patient stopped taking her lasix in the intermediate. patient is severely hypothyroid which might have added to her deterirated mental status and fluid overlaod -head CT normal which r/o any focal brain pathology -monitor her I&O -monitor her electrolytes -monitor vitals and blood pressure 2. Acute on top of Chronic decompensated CHF -increase lasix to every 12 hrs IV -weight checks -monitor bep daily -Monitor I &O 3. Pleural effusion: 3. Hypothyroidism: * Continue levothyroxine * check FT4 in tomorrow as per Dr Pillai recommendation 4. Seizures: - Dilantin level 19.1 -continue Dilantin 5. Atrial fibrillation: -will hold Hold warfarin will consider therapeutic and diagnostic thoracentesis once INR is better -continue 2 mg vitamin K by mouth 6. Decubitus ulcer: * pressure bed sore on coccyx aroung 2X3 cm deep non draining. - general expected healing is poor due to anasarca and general poor condition of the paitnet -continue aggressive offloading and low air loss mattress, as per wound care consult -coninue Wound care can be Santyl ointment covered with Xeroform and Adaptic cleanse daily. ---accounrding to Dr Gracia recommendation -continue coveringLeft arm with Xeroform daily. Problem List: 1. Atrial fibrillation 2. Dyspnea 3. CHF (congestive heart failure) 4. Skin tear 5. Bed sore 6. Hypothyroid 7. Seizure 8. Pleural effusion 9. Tachy-lauren syndrome 10. Anasarca 11. History of malignant neoplasm of uterine body Pain Ratin Pain Location: n/a Pain Goal: Remain pain free Pain Plan: tylenol ofirmev Tomorrow's Labs & Rationales: pt: on peb: pt on lasix DVT/Prophylaxis: pharmacological Consulting Request: Consulting Specialty: Endocrinology
--- NOTE | 2017-03-09 09:30 | PN- Endocrinology ---
Assessment/Plan Assessment: 87 yo female with PMH of COPD, hypothyroidism, hyperlipidemia, seizure disorder, possible TIA, pulmonary emoblus, and frequent UTI, who was admitted to after she had a mechanical fall on 02/14/2017. Patient was readmitted last night for altered mental status, significant sweling and dyspnea. Blood work showed TSH 21.2, free T 4 0.73 and TT3 1.02. At detention, she was on [place] thyroid 120 mg daily. On 03/08/2017, she was put on Levothyroxine 100 mcg iv daily. Patient appears slightly more alert this morning. Her HR ranges between 101 and 120. Plan: 1. continue Levothyroxine 100 mcg iv daily for now; 2. monitor free T4 level tomorrow am. will follow. Subjective Subjective: She appears more alert this morning. Objective Last 24 Hrs of Vital Signs/I&O Vital Signs Date Time Temp Pulse Resp B/P B/P Pulse O2 O2 Flow FiO2 Mean Ox Delivery Rate 03/09 0600 120 20 100/60 92 Nasal 4.0L Cannula 03/09 0000 Nasal 4.0L Cannula 03/08 2350 97.0 114 24 90/60 92 Nasal 4.0L Cannula 03/08 1447 96.0 101 20 90/64 93 Nasal 4.0L Cannula Intake & Output 03/09 1600 03/09 0800 03/09 0000 Intake Total 0 Output Total 450 800 Balance -450 -800 Intake, Oral 0 Number 1 Bowel Movements Output, Urine 450 800 Patient 208 lb Weight Weight Bhargavi Lift Measurement Method Results Pertinent Lab/Kurt Results: Laboratory Tests 03/08 03/08 0955 0955 Chemistry Sodium (137 - 145 mmol/L) 139 Potassium (3.5 - 5.1 mmol/L) 4.6 Chloride (98 - 107 mmol/L) 102 Carbon Dioxide (22 - 30 mmol/L) 30 Anion Gap (5 - 16) 7 BUN (7 - 17 mg/dL) 42 H Creatinine (0.5 - 1.0 mg/dL) 0.8 Estimated GFR (>60 ml/min) > 60 BUN/Creatinine Ratio (7 - 25 %) 52.5 H Lactic Acid (0.7 - 2.1 mmol/L) 1.7 Troponin I (< 0.11 ng/ml) 0.06
[2017-03-09 09:41] LABS: ABSOLUTE BASOPHIL COUNT 0 /CUMM (0.0-0.2); ABSOLUTE EOSINOPHIL COUNT 0 /CUMM (0.0-0.7); ABSOLUTE GRANULOCYTE CT 4.2 /CUMM (1.4-6.5); ABSOLUTE LYMPH COUNT 0.6 /CUMM (1.2-3.4); ABSOLUTE MONOCYTE COUNT 0.7 /CUMM (0.10-0.60); BASOPHIL % 0.1 % (0.0-2.0); EOSINOPHIL % 0.4 % (0-5); GRANULOCYTE % 76.3 % (42.2-75.2); MEAN CORPUSCULAR HGB 28.1 PG (27.0-31.0); MEAN CORPUSCULAR HGB CONC 31.3 G/DL (33.0-37.0); MEAN CORPUSCULAR VOLUME 89.9 FL (81.0-99.0); MEAN PLATELET VOLUME 9.9 FL (7.4-10.4); PLATELET COUNT 124 /CUMM (130-400); RBC DISTRIBUTION WIDTH 19.5 % (11.5-14.5); RED BLOOD CELL CT 4.45 /CUMM (4.20-5.40); WHITE BLOOD CELL COUNT 5.5 /CUMM (4.8-10.8)
[2017-03-09 10:01] LABS: PT 37.8 SEC (9.4-12.5)
--- NOTE | 2017-03-09 10:38 | PN- Pulmonary ---
Subjective HPI/Critical Care Issues: Patient appears slightly more alert this morning. Her HR ranges between 101 and 120. remains afebrile Objective Current Medications: Current Medications Sig/Liudmila Start time Last Medication Dose Route Stop Time Status Admin Acetaminophen 650 MG Q6P PRN 03/08 0115 AC PO Acetaminophen 1,000 MG Q6P PRN 03/08 0115 AC 03/08 IV 0918 Ceftazidime 1,000 MG Q12H 03/08 0200 DC 03/08 IV 0251 Collagenase 1 ANUPAM DAILY 03/08 1400 AC 03/09 TOP 0941 Furosemide 40 MG 7:30 AM, & 4:30 PM 03/08 0730 AC 03/09 IV 0657 Levothyroxine Sodium 100 MCG DAILY 03/08 1030 AC 03/09 IV 0935 Phenytoin 100 MG BID 03/08 1000 AC 03/09 Sodium Chloride 50 ML IV 1016 Phytonadione 2.5 MG ONCE ONE 03/08 1745 DC 03/08 SC 03/08 1746 1750 Phytonadione 2.5 MG ONCE ONE 03/08 1615 CAN IV 03/08 1616 Phytonadione 2.5 MG ONCE ONE 03/08 1145 CAN PO 03/08 1146 Vancomycin HCl 1,250 MG 0200 03/08 0200 DC 03/08 Sodium Chloride 250 ML IV 0233 Vital Signs & I&O Last 24 Hrs of Vitals and I&O: Vital Signs Date Time Temp Pulse Resp B/P B/P Pulse O2 O2 Flow FiO2 Mean Ox Delivery Rate 03/09 06 120 20 100/60 92 Nasal 4.0L Cannula 03/09 0000 Nasal 4.0L Cannula 03/08 2350 97.0 114 24 90/60 92 Nasal 4.0L Cannula 03/08 1447 96.0 101 20 90/64 93 Nasal 4.0L Cannula Intake & Output 03/09 1600 03/09 0800 03/09 0000 Intake Total 0 Output Total 450 800 Balance -450 -800 Intake, Oral 0 Number 1 Bowel Movements Output, Urine 450 800 Patient 208 lb Weight Weight Bhargavi Lift Measurement Method Laboratory Tests 03/09 03/09 03/08 0933 0930 0955 Chemistry Sodium (137 - 145 mmol/L) 139 Potassium (3.5 - 5.1 mmol/L) 4.1 Chloride (98 - 107 mmol/L) 105 Carbon Dioxide (22 - 30 mmol/L) 26 Anion Gap (5 - 16) 8 BUN (7 - 17 mg/dL) 38 H Creatinine (0.5 - 1.0 mg/dL) 0.8 Estimated GFR (>60 ml/min) > 60 BUN/Creatinine Ratio (7 - 25 %) 47.5 H Hemoglobin A1c (4.2 - 5.8 %) Pending Lactic Acid (0.7 - 2.1 mmol/L) 1.7 Magnesium (1.6 - 2.3 mg/dL) 1.9 Coagulation PT (9.4 - 12.5 SEC) 37.8 H INR (0.90 - 1.19) 3.65 H Hematology CBC w Diff NO MAN DIFF REQ WBC (4.8 - 10.8 /CUMM) 5.5 RBC (4.20 - 5.40 /CUMM) 4.45 Hgb (12.0 - 16.0 G/DL) 12.5 Hct (37 - 47 %) 40.0 MCV (81.0 - 99.0 FL) 89.9 MCH (27.0 - 31.0 PG) 28.1 RDW (11.5 - 14.5 %) 19.5 H Plt Count (130 - 400 /CUMM) 124 L MPV (7.4 - 10.4 FL) 9.9 Gran % (42.2 - 75.2 %) 76.3 H Lymphocytes % (20.5 - 51.1 %) 10.4 L Monocytes % (1.7 - 9.3 %) 12.8 H Eosinophils % (0 - 5 %) 0.4 Basophils % (0.0 - 2.0 %) 0.1 Absolute Granulocytes (1.4 - 6.5 /CUMM) 4.2 Absolute Lymphocytes (1.2 - 3.4 /CUMM) 0.6 L Absolute Monocytes (0.10 - 0.60 /CUMM) 0.7 H Absolute Eosinophils (0.0 - 0.7 /CUMM) 0 Absolute Basophils (0.0 - 0.2 /CUMM) 0 PUBS MCHC (33.0 - 37.0 G/DL) 31.3 L Toxicology Phenytoin (10.0 - 20.0 ug/mL) 19.1 07/06 07/06 0955 0855 Chemistry Sodium (137 - 145 mmol/L) 139 Potassium (3.5 - 5.1 mmol/L) 4.6 Chloride (98 - 107 mmol/L) 102 Carbon Dioxide (22 - 30 mmol/L) 30 Anion Gap (5 - 16) 7 BUN (7 - 17 mg/dL) 42 H Creatinine (0.5 - 1.0 mg/dL) 0.8 Estimated GFR (>60 ml/min) > 60 BUN/Creatinine Ratio (7 - 25 %) 52.5 H Troponin I (< 0.11 ng/ml) 0.06 Coagulation PT (9.4 - 12.5 SEC) 42.9 *H INR (0.90 - 1.19) 4.14 *H Hematology CBC w Diff MAN DIFF ORDERED WBC (4.8 - 10.8 /CUMM) 6.4 RBC (4.20 - 5.40 /CUMM) 4.27 Hgb (12.0 - 16.0 G/DL) 12.2 Hct (37 - 47 %) 38.7 MCV (81.0 - 99.0 FL) 90.7 MCH (27.0 - 31.0 PG) 28.5 RDW (11.5 - 14.5 %) 18.7 H Plt Count (130 - 400 /CUMM) 119 L MPV (7.4 - 10.4 FL) 9.8 Gran % (42.2 - 75.2 %) 83.7 H Lymphocytes % (20.5 - 51.1 %) 5.2 L Monocytes % (1.7 - 9.3 %) 10.5 H Eosinophils % (0 - 5 %) 0.5 Basophils % (0.0 - 2.0 %) 0.1 Absolute Granulocytes (1.4 - 6.5 /CUMM) 5.3 Segmented Neutrophils (42.2 - 75.2 %) 82 H Band Neutrophils (0.0 - 5.0 %) 5 Absolute Lymphocytes (1.2 - 3.4 /CUMM) 0.3 L Lymphocytes (20.5 - 51.1 %) 4 L Monocytes (1.7 - 9.3 %) 9 Absolute Monocytes (0.10 - 0.60 /CUMM) 0.7 H Absolute Eosinophils (0.0 - 0.7 /CUMM) 0 Absolute Basophils (0.0 - 0.2 /CUMM) 0 Nucleated RBCs (0.0 - 0.0 /100WBC) 1 H Platelet Estimate (ADEQUATE) DECREASED Normocytic RBCs VERIFIED Normochromic RBCs VERIFIED PUBS MCHC (33.0 - 37.0 G/DL) 31.5 L 03/08 03/08 0230 0020 Blood Gas pH (7.35 - 7.45 PH) 7.41 pCO2 (35 - 45 TORR) 39 pO2 (80 - 100 TORR) 68 L HCO3 (21 - 28 MEQ/L) 24 ABG O2 Sat (Measured) (>96.0 %) 94.0 L P-50 (Temp Corrected) N Carboxyhemoglobin (1.5 - 5.0 %) 0.7 L O2 Concentration % 3L O2 Delivery Method N/C Chemistry Lactic Acid (0.7 - 2.1 mmol/L) 1.7 Troponin I (< 0.11 ng/ml) 0.06 Coagulation PT (9.4 - 12.5 SEC) 44.1 *H INR (0.90 - 1.19) 4.26 *H Hematology CBC w Diff WBC (4.8 - 10.8 /CUMM) 6.1 RBC (4.20 - 5.40 /CUMM) 4.39 Hgb (12.0 - 16.0 G/DL) 12.3 Hct (37 - 47 %) 39.0 MCV (81.0 - 99.0 FL) 88.9 MCH (27.0 - 31.0 PG) 28.0 RDW (11.5 - 14.5 %) 18.3 H Plt Count (130 - 400 /CUMM) 134 MPV (7.4 - 10.4 FL) 10.1 Gran % (42.2 - 75.2 %) 83.7 H Lymphocytes % (20.5 - 51.1 %) 6.1 L Monocytes % (1.7 - 9.3 %) 9.6 H Eosinophils % (0 - 5 %) 0.2 Basophils % (0.0 - 2.0 %) 0.4 Absolute Granulocytes (1.4 - 6.5 /CUMM) 5.1 Absolute Lymphocytes (1.2 - 3.4 /CUMM) 0.4 L Absolute Monocytes (0.10 - 0.60 /CUMM) 0.6 Absolute Eosinophils (0.0 - 0.7 /CUMM) 0 Absolute Basophils (0.0 - 0.2 /CUMM) 0 PUBS MCHC (33.0 - 37.0 G/DL) 31.5 L Miscellaneous Phlebotomy Draw Site RIGHT RADIAL 03/07 03/07 2105 1901 Chemistry Sodium (137 - 145 mmol/L) 136 L Potassium (3.5 - 5.1 mmol/L) 5.0 Chloride (98 - 107 mmol/L) 104 Carbon Dioxide (22 - 30 mmol/L) 26 Anion Gap (5 - 16) 6 BUN (7 - 17 mg/dL) 40 H Creatinine (0.5 - 1.0 mg/dL) 0.8 Estimated GFR (>60 ml/min) > 60 BUN/Creatinine Ratio (7 - 25 %) 50.0 H Glucose (65 - 99 mg/dL) 101 H Calcium (8.4 - 10.2 mg/dL) 8.2 L Total Bilirubin (0.2 - 1.3 mg/dL) 0.7 AST (14 - 36 U/L) 43 H ALT (9 - 52 U/L) 40 Alkaline Phosphatase (<127 U/L) 197 H Troponin I (< 0.11 ng/ml) 0.06 [id number] Pept (<125 pg/mL) 3630 H Total Protein (6.3 - 8.2 g/dL) 6.1 L Albumin (3.5 - 5.0 g/dL) 2.7 L Globulin (1.9 - 4.2 gm/dL) 3.4 Albumin/Globulin Ratio (1.1 - 2.2 %) 0.8 L Free T4 (0.85 - 1.93 ng/dL) 0.73 L Total T3 (0.97 - 1.69 ng/mL) 1.02 TSH &T3 &Free T4 Intrp (0.270 - 4.20 uIU/mL) 21.200 H Toxicology Urine Opiates Screen (>2000 NG/ML) < 100.00 Methadone Screen (>300 NG/ML) 64 Barbiturate Screen (>200 NG/ML) 90 Ur Phencyclidine Scrn (>25 NG/ML) < 6.00 Amphetamines Screen (>1000 NG/ML) < 100 U Benzodiazepines Scrn (>200 NG/ML) < 85 Urine Cocaine Screen (>300 NG/ML) < 50 Urine Cannabis Screen (>50 NG/ML) < 5.00 Urines Urinalysis LIGHT H Urine Color (YEL,AMB,STR) YEL Urine Clarity (CLEAR) CLDY H Urine pH (5.0 - 8.0) 5.5 Ur Specific [place] (1.001 - 1.035) 1.020 Urine Protein (NEG,<30 MG/DL) TRACE H Urine Ketones (NEG) NEG Urine Nitrite (NEG) NEG Urine Bilirubin (NEG) NEG Urine Urobilinogen (0.1 - 1.0 EU/dl) 0.2 Ur Leukocyte Esterase (NEG) MOD H Ur Microscopic SEDIMENT EXAMINED Urine RBC (0 - 5 /HPF) RARE Urine WBC (0 - 2 /HPF) 5-10 H Ur Epithelial Cells (NONE,FEW) MANY H Urine Bacteria (NEG/NONE) MANY H Urine Hemoglobin (NEG) TRACE-LYSED Urine Glucose (N MG/DL) NEG Microbiology Date/Time Procedure - Status Source Growth 03/08 300 Respiratory Culture - COLB LOWER RESP 03/08 300 Gram Stain - COLB LOWER RESP 03/07 2105 Urine Culture - RES URINE ROUT GRAM POSITIVE COCCI Impression/Plan Impression/Plan Impression/Plan: CT chest IMPRESSION: 1. Moderate to large right-sided pleural effusion, moderate left-sided pleural effusion. 2. Right lower lobe is completely collapsed, the majority of the left lower lobe basilar segments are also nearly completely collapsed. 3. Indeterminate groundglass opacities in the upper lobes likely related to atelectasis. Pulmonary edema neoplastic and infectious etiology less likely though not excluded. 4. Extensive soft tissue edema left side greater than right extending into the left breast age and etiology indeterminate. 5. No aggressive osseous lesions. DICTATED BY: MARIO KWON MD General Appearance more alert mild confusion Skin left arm weeping edema, decub noted HEENT PERRLA, EOMI Neck Supple Cardiovascular irregular rhythm Lungs no breath sounds on RLL, b/l crackles Abdomen edematous soft abdomen Neurological groaning HWANG, unresponsive to voice Extremities No Clubbing (anasarca) IMPRESSION This is an 87-year-old lady with previous history of [id number] smoking history, emphysema as noted in the CAT scan, 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 Her issues include * Bilateral pleural effusions with generalized anasarca most likely related to significant hypothyroidism, diastolic dysfunction with hypoalbuminemia. No clinical evidence suggestive of significant emphyema or any infection * Significant COPD with no active wheezing, no significant CO2 retention * Bilateral atelectasis related to large pleural effusions * Remote history of pulmonary embolism with no clinical evidence suggestive of active venous thromboembolism and patient is appropriately anticoagulated * Profound hypothyroidism most likely contributing to her anasarca and edema * Altered mental status with multiple issues including history of previous seizure, TIA, negative CT scan at this time * Supratherapeutic INR * Diastolic heart failure which appears to be acute on chronic * No clinical evidence suggestive of significant nephrotic syndrome * Decubiti ulcer related to multiple factors as noted above RECOMMENDATION * Continue levothyroxine * Increase Lasix to every 12 intravenously, keep potassium more than 4 * Can hold antibiotics and observe * Hold warfarin will consider therapeutic and diagnostic thoracentesis once INR is better * No urgent need for thoracentesis and can be performed if she clinically gets worse over the weekend * Aggressive bowel regimen Will follow closely
--- NOTE | 2017-03-09 15:15 | PN- Cardiology ---
Subjective Subjective: Reportedly more alert this a.m., but presently moaning and not responding to questioning. Objective Vital Signs and I&Os Vital Signs Date Time Temp Pulse Resp B/P B/P Pulse O2 O2 Flow FiO2 Mean Ox Delivery Rate 03/09 1700 96.6 139 24 90/58 94 Nasal 4.0L Cannula 03/09 0800 94 Nasal 4.0L Cannula 03/09 0600 120 20 100/60 92 Nasal 4.0L Cannula 03/09 0000 Nasal 4.0L Cannula 03/08 2350 97.0 114 24 90/60 92 Nasal 4.0L Cannula Intake & Output 03/09 1600 03/09 0800 / 0000 03/08 1600 03/08 0800 03/08 0000 Intake Total 120 0 60 250 Output Total 450 714 244 9271 Balance 120 -450 -800 -340 -950 Intake, IV 120 60 250 Intake, Oral 0 0 0 Number 1 1 1 Bowel Movements Output, Urine 450 475 320 4674 Patient 208 lb 180 lb 180 lb Weight Weight Bhargavi Lift Bhargavi Lift Estimated Measurement Method Physical Exam: Chronically ill-appearing elderly female who is moaning and unable to answer questions. Vital signs: See above. HEENT: Normocephalic, atraumatic, EOMI, dry mucous membranes. Neck: No JVD, no bruits. Lungs: Decreased breath sounds bilaterally. Heart: S1, S2 with grade 1/6 systolic murmur. Extremities: Positive edema. Current Medications: Current Medications Sig/Liudmila Start time Last Medication Dose Route Stop Time Status Admin Acetaminophen 650 MG Q6P PRN 03/08 0115 AC PO Acetaminophen 1,000 MG Q6P PRN 03/08 0115 AC 03/08 IV 0918 Collagenase 1 ANUPAM DAILY 03/08 1400 AC 03/09 TOP 0941 Furosemide 40 MG 7:30 AM, & 4:30 PM 03/08 0730 AC 03/09 IV 1634 Glycerin 2 SPRAY Q2P PRN 03/09 1430 AC PO Levothyroxine Sodium 100 MCG DAILY 03/08 1030 AC 03/09 IV 0935 Phenytoin 100 MG BID 03/08 1000 AC 03/09 Sodium Chloride 50 ML IV 1016 Polyethylene Glycol 17 GM DAILY 03/09 1333 AC PO Senna/Docusate Sodium 2 TAB DAILY PRN 03/09 1345 AC PO Results Last 48 Hrs of Labs/Mics: Laboratory Tests 03/09/17 0933: Anion Gap 8, Estimated GFR > 60, BUN/Creatinine Ratio 47.5 H, Hemoglobin A1c 5.5, Magnesium 1.9, Phenytoin 19.1 03/09/17 0930: PT 37.8 H, INR 3.65 H, CBC w Diff NO MAN DIFF REQ, RBC 4.45, MCV 89.9, MCH 28.1, RDW 19.5 H, MPV 9.9, Gran % 76.3 H, Lymphocytes % 10.4 L, Monocytes % 12.8 H, Eosinophils % 0.4, Basophils % 0.1, Absolute Granulocytes 4.2, Absolute Lymphocytes 0.6 L, Absolute Monocytes 0.7 H, Absolute Eosinophils 0, Absolute Basophils 0, PUBS MCHC 31.3 L 03/08/17 0955: Lactic Acid 1.7 03/08/17 0955: Anion Gap 7, Estimated GFR > 60, BUN/Creatinine Ratio 52.5 H, Troponin I 0.06 03/08/17 0855: PT 42.9 *H, INR 4.14 *H, CBC w Diff MAN DIFF ORDERED, RBC 4.27, MCV 90.7, MCH 28.5, RDW 18.7 H, MPV 9.8, Gran % 83.7 H, Lymphocytes % 5.2 L, Monocytes % 10.5 H, Eosinophils % 0.5, Basophils % 0.1, Absolute Granulocytes 5.3, Segmented Neutrophils 82 H, Band Neutrophils 5, Absolute Lymphocytes 0.3 L, Lymphocytes 4 L, Monocytes 9, Absolute Monocytes 0.7 H, Absolute Eosinophils 0 , Absolute Basophils 0, Nucleated RBCs 1 H, Platelet Estimate DECREASED, Normocytic RBCs VERIFIED, Normochromic RBCs VERIFIED, PUBS MCHC 31.5 L 03/08/17 0230: pH 7.41, pCO2 39, pO2 68 L, HCO3 24, ABG O2 Sat (Measured) 94.0 L, P-50 (Temp Corrected) N, Carboxyhemoglobin 0.7 L, O2 Concentration % 3L, O2 Delivery Method N/C, Troponin I 0.06, Phlebotomy Draw Site RIGHT RADIAL 03/08/17 0020: Lactic Acid 1.7, PT 44.1 *H, INR 4.26 *H, CBC w Diff , RBC 4.39, MCV 88.9, MCH 28.0, RDW 18.3 H, MPV 10.1, Gran % 83.7 H, Lymphocytes % 6.1 L, Monocytes % 9.6 H, Eosinophils % 0.2, Basophils % 0.4, Absolute Granulocytes 5.1, Absolute Lymphocytes 0.4 L, Absolute Monocytes 0.6, Absolute Eosinophils 0, Absolute Basophils 0, PUBS MCHC 31.5 L 03/07/172104: Urine Opiates Screen < 100.00, Methadone Screen 64, Barbiturate Screen 90, Ur Phencyclidine Scrn < 6.00, Amphetamines Screen < 100, U Benzodiazepines Scrn < 85, Urine Cocaine Screen < 50, Urine Cannabis Screen < 5.00, Urinalysis LIGHT H , Urine Color YEL, Urine Clarity CLDY H, Urine pH 5.5, Ur Specific [place] 1.020, Urine Protein TRACE H, Urine Ketones NEG, Urine Nitrite NEG, Urine Bilirubin NEG, Urine Urobilinogen 0.2, Ur Leukocyte Esterase MOD H, Ur Microscopic SEDIMENT EXAMINED, Urine RBC RARE, Urine WBC 5-10 H, Ur Epithelial Cells MANY H, Urine Bacteria MANY H, Urine Hemoglobin TRACE-LYSED, Urine Glucose NEG 03/07/17 190: Anion Gap 6, Estimated GFR > 60, BUN/Creatinine Ratio 50.0 H, Glucose 101 H, Calcium 8.2 L, Total Bilirubin 0.7, AST 43 H, ALT 40, Alkaline Phosphatase 197 H, Troponin I 0.06, Bco-Q-Ogjlmplwfre Pept 3630 H, Total Protein 6.1 L, Albumin 2.7 L, Globulin 3.4, Albumin/Globulin Ratio 0.8 L, Free T4 0.73 L, Total T3 1.02, TSH &T3 &Free T4 Intrp 21.200 H Microbiology 03/07 2105 URINE ROUT: Urine Culture - COMP ENTEROCOCCUS LACTOBACILLUS Assessment/Plan Assessment/Plan [id number] w/ a hx of tobacco use, COPD, hypothyroidism, HLD, Sz disorder, possible TIA, pul embolism w/ warfarin anticoagulation and remote brief bouts of AF who was recently hospitalized here twice and who returns from her [facility] facility w/ AMS/hypoxemia and who was found to have anasarca w/ evidence of bilateral pleural effusions and marked hypothyroidism despite replacement. She reportedly received IV Furosemide 80 mg 1 in the ED and is now being given IV Furosemide 40 mg twice daily for suspected acute diastolic heart failure. A major issue is her ventricular response rates to the atrial fibrillation and borderline blood pressure. Would like to initiate therapy with IV diltiazem, but not sure her blood pressure can tolerate this. Would start on IV digoxin for control ventricular response. Recommendations: * Continue IV furosemide 40 mg twice daily as her blood pressure tolerates and reassess the need for further IV diuresis in the a.m. * Start on IV digoxin. Give IV digoxin 0.25 mg now, give IV digoxin 0.25 mg in 6 hours, and give IV digoxin 0.25 mg 6 hours after that for a total loading dose of 0.75 mg. * Begin oral digoxin 0.125 mg in the a.m. Follow-up a digoxin level at steady state and at least 6 hours (ideally 12 hours) after the last dosage was given. * INR remains supratherapeutic at 3.65 so continue to hold warfarin and recheck the INR in the a.m. Continue telemetry? Yes
[2017-03-09 17:00] VITALS: BP 90/58
--- NOTE | 2017-03-09 18:27 | NUR ---
HR FROM LOW 100s TO 140, GOES TO 140 THEN QUICKLY DOWN TO 116, FOLLOWING THIS PATTERN DR Hunt NOTIFIED
--- NOTE | 2017-03-09 19:23 | ECHOCARDIOGRAM REPORT ---
GABBY BASS Age: 87 : 1930 Gender: F Exam Date: 03/09/2017 14:48 Exam Location: [address] Ht (in): 64 Wt (lb): 180 BSA: 1.95 BP: 90 / 60 Ordering Physician: GOLDY PÉREZ MD Referring Physician: GOLDY PÉREZ MD Technologist: Glenn Sigala [facility] Room Number: 177 Indications: CHF, unspecified or secondary right CHF Rhythm: Atrial fibrillation Technical Quality: Fair FINDINGS Left Ventricle Limited study to reassess left ventricular function. Normal size left ventricle. Mild concentric left ventricular hypertrophy. No obvious regional wall motion abnormalities. Normal left ventricular ejection fraction visually estimated at >60 %. Right Ventricle Normal right ventricular size and function. Catheter/pacemaker wire in the right ventricular cavity. Right Atrium Moderate to severe right atrial dilatation. Catheter/pacemaker wire in the right atrium. Left Atrium Moderate to severe left atrial dilatation. Mitral Valve Mild mitral regurgitation. Aortic Valve Trace aortic regurgitation. Tricuspid Valve Moderate to severe tricuspid regurgitation. Pulmonic Valve Pulmonic valve not well visualized. Pericardium Pericardium not well visualized. Great Vessels CONCLUSIONS Normal size left ventricle. Mild concentric left ventricular hypertrophy. No obvious regional wall motion abnormalities. Normal left ventricular ejection fraction visually estimated at >60 Normal right ventricular size and function. Moderate to severe right atrial dilatation. Catheter/pacemaker wire in the right heart. Moderate to severe left atrial dilatation. Mild mitral regurgitation. Trace aortic regurgitation. Moderate to severe tricuspid regurgitation. Bienvenido Garland M.D. (Electronically Signed) Final Date: 09 March 2017 19:22 MEASUREMENTS (Male / Female) Normal Values DOPPLER AV Peak Velocity 206.0 cm/s AV Peak Gradient 17.0 mmHg LVOT Peak Velocity 90.9 cm/s LVOT Peak Gradient 3.3 mmHg TV Peak Velocity 258.5 cm/s
[2017-03-09 21:00] VITALS: BP 102/68
[2017-03-09 23:00] VITALS: BP 98/68
--- NOTE | 2017-03-10 04:33 | Event Note ---
Event Note Event Note: Paged by the nurses that the patient destaturated to 88% and was in respiratory distress. Went and examined the patient. She was awake, nonverbal. HEENT revealed dry mucous membrane, however auscultation of chest revealed bilateral ronchi. Ordred TRC, CXR, trop, ekg, BEP, Mag. Of note patient was started on IV Digoxin
--- NOTE | 2017-03-10 04:52 | RADIOLOGY REPORT ---
EXAMINATION: XR PORTABLE CHEST CLINICAL INFORMATION: Hypoxia COMPARISON: Chest x-ray 02/14/2017 TECHNIQUE: Portable frontal view of the chest was obtained. 4:32 AM FINDINGS: Large right pleural effusion and left pleural effusion. The volume of effusions have increased since the exam of 02/14/2017. There is also mild increasing central pulmonary vascularity. The density at both lung bases is related to the effusion but underlying infiltrate or atelectasis may be present as well. Pacemaker lead in right atrium. The previously seen right sided PICC line is no longer present. IMPRESSION: Large bilateral pleural effusions increasing in volume since prior chest x-ray 02/14/2017. Mild increased central pulmonary vascularity worse since prior chest x-ray as well.
[2017-03-10 07:40] VITALS: BP 86/60
[2017-03-10 09:02] LABS: PT 19.8 SEC (9.4-12.5)
--- NOTE | 2017-03-10 09:28 | PN- Housestaff ---
URBANO DINH,CARYN 03/10/17 0928: Subjective Follow-up For: 1. Altered mental status 2 CHF 3. Hypothyroidism 4. Decubitus ulcer Complaints: couldn't be assessed dt mental status Tele-Events Since Last Visit: a fib 80-117 PVCs Subjective: I have personally seen and examined Savita Mcneill at bedside this morning, she looks disoriented ,dehydrated and was unable to provide history Review of Systems Constitutional: Denies: no symptoms. Objective Last 24 Hrs of Vital Signs/I&O Vital Signs Date Time Temp Pulse Resp B/P B/P Pulse O2 O2 Flow FiO2 Mean Ox Delivery Rate 03/10 0740 98.9 128 24 86/60 90 Nasal Cannula 03/10 0353 91 Nasal 4.0L Cannula 03/10 0310 108 98/60 03/10 0000 93 Nasal 4.0L Cannula 03/09 2300 97.1 119 24 98/68 93 Nasal 4.0L Cannula 03/09 2102 138 102/68 03/09 2100 138 102/68 92 Nasal 4.0L Cannula 03/09 1700 96.6 139 24 90/58 94 Nasal 4.0L Cannula 03/09 1600 94 Nasal 4.0L Cannula Intake & Output 03/10 1600 03/10 0800 03/10 0000 Intake Total 0 0 Output Total 325 475 Balance -325 -475 Intake, Oral 0 0 Output, Urine 325 475 Patient 205 lb Weight Weight Bhargavi Lift Measurement Method Physical Exam General Appearance: disoriented but a little more cooperative than yesterday Skin: dry, HEENT: Atraumatic, PERRLA Neck: Supple Cardiovascular: Normal S1, Normal S2, No Murmurs, irregular irregular Lungs: bilateral scattered crep Abdomen: Normal Bowel Sounds, Soft, No Tenderness Neurological: couldn't be assessed dt mental state Orders ECHO Findings: Right Atrium Moderate to severe right atrial dilatation. Catheter/pacemaker wire in the right atrium. Left Atrium Moderate to severe left atrial dilatation. Mitral Valve Mild mitral regurgitation. Aortic Valve Trace aortic regurgitation Assessment/Plan Assessment: assessment: 87 year old lady with atrial fibrillation, COPD, HLD, arrhythmia s/p pacer, hypothyroidism, seizure disorder,Patient was recently hospitalized at [facility] last month with bowel obstruction, significant hypothyroidism and atrial fibrillation she presented yesterday with altered mental status, dyspnea and increasing generalized edema. patient this morning was still disoriented and dehydrated.and couldn't give any history problems and plan: 1. Altered mental status: might be due dehydration, electrolyte imbalance( as the patient was not able to eat or drink or it might be due to hypoxic respiratory failure infection secondary to fluid accumilation in the lung as the patient stopped taking her lasix in the group home. patient is severely hypothyroid which might have added to her deterirated mental status and fluid overlaod -head CT normal which r/o any focal brain pathology -monitor her I&O -monitor her electrolytes -monitor vitals and blood pressure improve nut ssupport 2. Acute on top of Chronic decompensated CHF -Lasix was held this morning as the patient was hypotensive -weight checks -monitor bep daily -Monitor I &O # high trops: 0.14 at 10:30 this morning , EKG was unremarkable continue to trend trops and EKG 3. Pleural effusion: -pt is scheduled for thoracocentesis on Monday 03/12 if her INR is accepatable -INR today is 1.9 3. Hypothyroidism: * Decrease IV Levothyroxin to 75 mcg and check FT4 in tomorrow as per Dr. Pillai recomm 4. Seizures: - Dilantin level 19.1 -continue Dilantin 5. Atrial fibrillation: echo on 03/09/17 showed : Moderate to severe right atrial dilatation. Catheter/ pacemaker wire in the right atrium, Moderate to severe left atrial dilatation, Mild mitral regurgitation.,Trace aortic regurgitation - Hold warfarin will consider therapeutic and diagnostic thoracentesis once INR is better -continue 2 mg vitamin K by mouth - will Begin oral digoxin 0.125 mg this a.m. Follow-up a digoxin level at steady state and at least 6 hours (ideally 12 hours) after the last dosage was given as per cardio recomm 6. Decubitus ulcer: * pressure bed sore on coccyx aroung 2X3 cm deep non draining. - general expected healing is poor due to anasarca and general poor condition of the paitnet -continue aggressive offloading and low air loss mattress, as per wound care consult -coninue Wound care can be Santyl ointment covered with Xeroform and Adaptic cleanse daily. ---accounrding to Dr Gracia recommendation -continue coveringLeft arm with Xeroform daily. full code Problem List: 1. Atrial fibrillation 2. Dehydration 3. Seizure disorder 4. Skin tear 5. Elevated INR 6. Hypothyroid 7. Bed sore 8. Pleural effusion 9. CHF (congestive heart failure) 10. Anasarca 11. History of malignant neoplasm of uterine body 12. Anasarca Pain Ratin Pain Location: n/a Pain Goal: Remain pain free Pain Plan: tylenol ofirmev Tomorrow's Labs & Rationales: inr: high INR peb: pt on lasix, dehydrated DVT/Prophylaxis: pharmacological Consulting Request: Consulting Specialty: Endocrinology DONNA HANNON 03/10/17 1047: Attending MD Review Statement Attending Statement Attending MD Statement: examined this patient, discuss w/resident/PA/E [employer]NALYST, agreed w/resident/PA/E [employer] ANALYST, discussed with family, reviewed EMR data (avail), discussed with nursing, discussed with case mgmt, reviewed images, amended to note Attending Assessment/Plan: The patient was seen and discussed with house staff. Mental status improving slightly, overnight afib on digoxin, i/v levothyroxine 100mcg f/u endo for management, PO intake continues to be problematic. The patient is more likely to eat when daughter is present. Will continue to encourage nutritional supplements. Possible thoracentesis 03/12. follow INR, limited prognosis, patient non coperative with blood draw.
--- NOTE | 2017-03-10 13:15 | PN- Endocrinology ---
Assessment/Plan Assessment: 87 yo female with PMH of COPD, hypothyroidism, hyperlipidemia, seizure disorder, possible TIA, pulmonary emoblus, and frequent UTI, who was admitted to after she had a mechanical fall on 02/14/2017. Patient was readmitted last night for altered mental status, significant sweling and dyspnea. Blood work showed TSH 21.2, free T 4 0.73 and TT3 1.02. [facility] she [facility] on Sandy thyroid 120 mg daily. On 03/08/2017, she was put on Levothyroxine 100 mcg iv daily. Patient was found to be in atrila fibrillation last night. Patient was put on Digoxin. Repeat free T4 level is still pending. Patient hasn't been eating for a while. Plan: 1. follow repeat free T4 level; 2. decrease Levothyroxine to 75 mcg iv daily; 3. continue monitoring VS; 4. improve nutrition suppor. will follow. Subjective Subjective: She appears lethargic and confused. Objective Last 24 Hrs of Vital Signs/I&O Vital Signs Date Time Temp Pulse Resp B/P B/P Pulse O2 O2 Flow FiO2 Mean Ox Delivery Rate 03/10 1136 Nasal 4.0L Cannula 03/10 1131 93 Nasal 4.0L Cannula 03/10 1035 86 110/58 03/10 0900 Nasal 4.0L Cannula 03/10 0740 98.9 128 24 86/60 90 Nasal Cannula 03/10 0353 91 Nasal 4.0L Cannula 03/10 0310 108 98/60 07/08 0000 93 Nasal 4.0L Cannula 03/09 2300 97.1 119 24 98/68 93 Nasal 4.0L Cannula 03/09 2102 138 102/68 07 2100 138 102/68 92 Nasal 4.0L Cannula 03/09 1700 96.6 139 24 90/58 94 Nasal 4.0L Cannula 03/09 1600 94 Nasal 4.0L Cannula Intake & Output 03/10 1600 03/10 0800 / 0000 Intake Total 0 0 Output Total 325 475 Balance -325 -475 Intake, Oral 0 0 Output, Urine 325 475 Patient 205 lb Weight Weight Bhargavi Lift Measurement Method Results Pertinent Lab/Kurt Results: Laboratory Tests 03/10 03/10 03/10 1030 0730 0600 Chemistry Sodium (137 - 145 mmol/L) 143 Cancelled Potassium (3.5 - 5.1 mmol/L) 3.9 Cancelled Chloride (98 - 107 mmol/L) 103 Cancelled Carbon Dioxide (22 - 30 mmol/L) 29 Cancelled Anion Gap (5 - 16) 11 Cancelled BUN (7 - 17 mg/dL) 39 H Cancelled Creatinine (0.5 - 1.0 mg/dL) 0.8 Cancelled Estimated GFR (>60 ml/min) > 60 BUN/Creatinine Ratio (7 - 25 %) 48.8 H Cancelled Magnesium (1.6 - 2.3 mg/dL) 2.0 Cancelled Troponin I (< 0.11 ng/ml) Pending Free T4 (0.85 - 1.93 ng/dL) Pending Coagulation PT (9.4 - 12.5 SEC) 19.8 H Cancelled INR (0.90 - 1.19) 1.90 H Cancelled
--- NOTE | 2017-03-10 13:21 | PN- Cardiology ---
Subjective Subjective: Clinically, the patient is slightly more agitated today. The family is at the bedside and concerned about the patient's lack of oral intake. According to the family, the patient appears somewhat worse today than yesterday. Objective Vital Signs and I&Os Vital Signs Date Time Temp Pulse Resp B/P B/P Pulse O2 O2 Flow FiO2 Mean Ox Delivery Rate 03/10 1136 Nasal 4.0L Cannula 03/10 1131 93 Nasal 4.0L Cannula 03/10 1035 86 110/58 03/10 0900 Nasal 4.0L Cannula 03/10 0740 98.9 128 24 86/60 90 Nasal Cannula 03/10 0353 91 Nasal 4.0L Cannula 03/10 0310 108 98/60 03/10 0000 93 Nasal 4.0L Cannula 03/09 2300 97.1 119 24 98/68 93 Nasal 4.0L Cannula 03/09 2102 138 102/68 03/09 2100 138 102/68 92 Nasal 4.0L Cannula 03/09 1700 96.6 139 24 90/58 94 Nasal 4.0L Cannula 03/09 1600 94 Nasal 4.0L Cannula Intake & Output 03/10 1600 03/10 0800 08 0000 03/09 1600 03/09 0800 03/09 0000 Intake Total 0 0 120 0 Output Total 325 475 450 800 Balance -325 -475 120 -450 -800 Intake, IV 120 Intake, Oral 0 0 0 Number 1 Bowel Movements Output, Urine 325 475 450 800 Patient 205 lb 208 lb Weight Weight Bhargavi Lift Bhargavi Lift Measurement Method Physical Exam: General Appearance frail elderly female, alert, somewhat agitated, no purposeful response clinically appears somewhat dry. Very dry oral mucosa. Skin left arm weeping edema, 7x5cm stage 3 decubitus ulcer HEENT PERRLA, EOMI Neck Supple, JVP normal, carotids normal bilaterally Cardiovascular irregular rhythm S1, S2, 1/6 systolic murmur Lungs bilateral rhonchi with decreased breath sounds at the bases Abdomen edematous soft abdomen Neurological groaning HWANG, unresponsive to voice Extremities No Clubbing (anasarca) Current Medications: Current Medications Sig/Liudmila Start time Last Medication Dose Route Stop Time Status Admin Acetaminophen 650 MG Q6P PRN 03/08 0115 AC PO Acetaminophen 1,000 MG Q6P PRN 03/08 0115 AC 07/06 IV 0918 Albuterol Sulfate 3 ML Q4P PRN 03/10 1145 AC INH Albuterol Sulfate 3 ML ONCE ONE 03/10 0400 DC 03/10 INH 03/10 0401 0351 Collagenase 1 ANUPAM DAILY 03/08 1400 AC 03/10 TOP 1037 Digoxin 0.125 MG DAILY@1400 03/10 1400 AC PO Digoxin 0.25 MG Q6H 03/09 2000 DC 03/10 IV 03/10 08 1035 Furosemide 40 MG ONCE ONE 03/10 06 DC IV 03/10 06 Furosemide 40 MG 7:30 AM, & 4:30 PM 03/08 0730 AC 03/10 IV 1035 Glycerin 2 SPRAY Q2P PRN 03/09 1430 AC 03/10 PO 1037 Levothyroxine Sodium 75 MCG DAILY 03/11 1000 AC IV Levothyroxine Sodium 100 MCG DAILY 03/08 1030 DC 03/10 IV 1037 Phenytoin 100 MG .STK-MED ONE 03/09 2013 DC IM 03/09 2014 Phenytoin 100 MG BID 03/08 1000 AC 03/10 Sodium Chloride 50 ML IV 1302 Polyethylene Glycol 17 GM DAILY 03/09 1333 AC 03/10 PO 1037 Senna/Docusate Sodium 2 TAB DAILY PRN 03/09 1345 AC PO Sodium Chloride 1,000 ML Q13H 03/10 1200 AC IV Results Last 48 Hrs of Labs/Mics: Laboratory Tests 03/10/17 1030: Anion Gap 11, Estimated GFR > 60, BUN/Creatinine Ratio 48.8 H, Magnesium 2.0, Troponin I 0.14 *H, Free T4 1.01 03/10/17 0730: Magnesium Cancelled, PT 19.8 H, INR 1.90 H 03/10/17 0600: Sodium Cancelled, Potassium Cancelled, Chloride Cancelled, Carbon Dioxide Cancelled, Anion Gap Cancelled, BUN Cancelled, Creatinine Cancelled, BUN/ Creatinine Ratio Cancelled, PT Cancelled, INR Cancelled 03/09/17 0933: Anion Gap 8, Estimated GFR > 60, BUN/Creatinine Ratio 47.5 H, Hemoglobin A1c 5.5, Magnesium 1.9, Phenytoin 19.1 03/09/17 0930: PT 37.8 H, INR 3.65 H, CBC w Diff NO MAN DIFF REQ, RBC 4.45, MCV 89.9, MCH 28.1, RDW 19.5 H, MPV 9.9, Gran % 76.3 H, Lymphocytes % 10.4 L, Monocytes % 12.8 H, Eosinophils % 0.4, Basophils % 0.1, Absolute Granulocytes 4.2, Absolute Lymphocytes 0.6 L, Absolute Monocytes 0.7 H, Absolute Eosinophils 0, Absolute Basophils 0, PUBS MCHC 31.3 L Assessment/Plan Assessment/Plan Assessment: 1. Atrial fibrillation 2. Congestive heart failure 3. Short of breath 4. Hypothyroidism 5. Pleural effusions 6. History of tachycardia/bradycardia syndrome 7. Poor nutritional status 8. History of seizures 9. Moderate to severe tricuspid insufficiency 10. Permanent pacemaker Recommendations: -Clinically, the patient appears somewhat worse than yesterday. The family remains concerned. -Reassess nutritional status -If possible, consider some gentle hydration -Follow-up laboratories pending
--- NOTE | 2017-03-10 14:48 | RADIOLOGY REPORT ---
EXAMINATION: XR PORTABLE CHEST CLINICAL INFORMATION: NG tube placement COMPARISON: CXR from 03/10/2017 at 4:32 AM TECHNIQUE: Portable frontal view of the chest was obtained. FINDINGS: Interval placement of nasogastric tube which extends below the diaphragm and beyond the [id number]. No change in appearance of the chest. Moderate bilateral pleural effusions and compressive atelectasis in the bases. Cardiac silhouette is partially obscured by the pleural effusions and basilar opacities. No overt interstitial edema. Thoracic aorta is calcified. Single-lead right ventricular pacemaker in place. No acute skeletal abnormality. IMPRESSION: 1. NG tube extends below the diaphragm and beyond the [id number]. 2. No interval change in moderate-sized, bilateral pleural effusions and bibasilar pulmonary opacities.
[2017-03-10 15:12] VITALS: BP 92/62
--- NOTE | 2017-03-10 16:52 | RADIOLOGY REPORT ---
EXAMINATION: XR PORTABLE CHEST CLINICAL INFORMATION: Status post NG tube placement. COMPARISON: Chest 03/10/2017. TECHNIQUE: Portable frontal view of the chest was obtained. FINDINGS: The nasogastric tube is below diaphragm. Solitary pacer electrode tip remains in right ventricle. There is moderate bibasilar haziness greater on the right from underlying effusion and/or atelectasis. Infiltrate cannot be excluded. The upper lungs are relatively clear. The heart size appears normal. There is no evidence of congestion. IMPRESSION: Moderate right and small to moderate left pleural effusions with bibasilar atelectasis. Nasogastric tube and auditory pacer electrode are in satisfactory position. No major change from 03/10/2017 at 2:25 PM.
[2017-03-10 23:23] VITALS: BP 102/60
[2017-03-11 07:11] VITALS: BP 112/62
--- NOTE | 2017-03-11 08:48 | PN- Cardiology ---
Subjective Subjective: No significant change from a cardiac perspective clinically. The patient continues to look poorly. Her troponin has been minimally elevated, and slowly increasing from 0.14 to, ultimately, 0.17. No new arrhythmias detected. Rate reasonably controlled. No significant ECG changes detected yet. No obvious cardiac symptoms. Objective Vital Signs and I&Os Vital Signs Date Time Temp Pulse Resp B/P B/P Pulse O2 O2 Flow FiO2 Mean Ox Delivery Rate 03/11 711 96.4 76 20 112/62 94 Nasal Cannula 03/11 0000 Nasal 4.0L Cannula 03/10 2323 96.2 100 20 102/60 90 Nasal Cannula 03/10 1805 102 100/70 03/10 1526 96.5 03/10 1512 77 20 92/62 95 Nasal 4.0L Cannula 03/10 1136 Nasal 4.0L Cannula 03/10 1131 93 Nasal 4.0L Cannula 03/10 1035 86 110/58 03/10 0900 Nasal 4.0L Cannula Intake & Output 03/11 1600 03/11 0800 / 0000 03/10 1600 03/10 0800 03/10 0000 Intake Total 600 225 150 0 0 Output Total 325 125 175 325 475 Balance 275 100 -25 -325 -475 Intake, IV 600 225 100 Intake, Oral 50 0 0 Output, Urine 325 125 175 325 475 Patient 205 lb Weight Weight Bhargavi Lift Measurement Method Physical Exam: Physical Exam: General Appearance frail elderly female, alert, somewhat agitated, no purposeful response clinically appears somewhat dry. Very dry oral mucosa. Skin left arm weeping edema, 7x5cm stage 3 decubitus ulcer HEENT PERRLA, EOMI Neck Supple, JVP normal, carotids normal bilaterally Cardiovascular irregular rhythm S1, S2, 1/6 systolic murmur Lungs bilateral rhonchi with decreased breath sounds at the bases Abdomen edematous soft abdomen Neurological groaning HWANG, unresponsive to voice Extremities No Clubbing (anasarca) Current Medications: Current Medications Sig/Liudmila Start time Last Medication Dose Route Stop Time Status Admin Acetaminophen 650 MG Q6P PRN 03/08 0115 AC PO Acetaminophen 1,000 MG Q6P PRN 03/08 0115 AC 03/08 IV 0918 Albuterol Sulfate 3 ML Q4P PRN 03/10 1145 AC INH Collagenase 1 ANUPAM DAILY 03/08 1400 AC 03/10 TOP 1037 Digoxin 0.125 MG DAILY@1400 03/10 1400 AC 03/10 PO 1805 Furosemide 40 MG 7:30 AM, & 4:30 PM 03/08 0730 AC 03/09 IV 1634 Glycerin 2 SPRAY Q2P PRN 03/09 1430 AC 03/10 PO 1037 Levothyroxine Sodium 75 MCG DAILY 03/11 1000 AC IV Levothyroxine Sodium 100 MCG DAILY 03/08 1030 DC 03/10 IV 1037 Phenytoin 100 MG BID 03/08 1000 AC 03/10 Sodium Chloride 50 ML IV 2246 Polyethylene Glycol 17 GM DAILY 03/09 1333 AC 03/10 PO 1037 Senna/Docusate Sodium 2 TAB DAILY PRN 03/09 1345 AC PO Sodium Chloride 1,000 ML Q13H 03/10 1200 AC 03/10 IV 1343 Results Last 48 Hrs of Labs/Mics: Laboratory Tests 03/11/17 0810: Sodium Pending, Potassium Pending, Chloride Pending, Carbon Dioxide Pending, Anion Gap Pending, BUN Pending, Creatinine Pending, BUN/Creatinine Ratio Pending , Troponin I Pending, PT Pending, INR Pending 03/10/17 2250: Troponin I 0.17 *H 03/10/17 1535: Troponin I 0.16 *H 03/10/17 1030: Anion Gap 11, Estimated GFR > 60, BUN/Creatinine Ratio 48.8 H, Magnesium 2.0, Troponin I 0.14 *H, Free T4 1.01 03/10/17 0730: Magnesium Cancelled, PT 19.8 H, INR 1.90 H 03/10/17 0600: Sodium Cancelled, Potassium Cancelled, Chloride Cancelled, Carbon Dioxide Cancelled, Anion Gap Cancelled, BUN Cancelled, Creatinine Cancelled, BUN/ Creatinine Ratio Cancelled, PT Cancelled, INR Cancelled 03/09/17 0933: Anion Gap 8, Estimated GFR > 60, BUN/Creatinine Ratio 47.5 H, Hemoglobin A1c 5.5, Magnesium 1.9, Phenytoin 19.1 03/09/17 0930: PT 37.8 H, INR 3.65 H, CBC w Diff NO MAN DIFF REQ, RBC 4.45, MCV 89.9, MCH 28.1, RDW 19.5 H, MPV 9.9, Gran % 76.3 H, Lymphocytes % 10.4 L, Monocytes % 12.8 H, Eosinophils % 0.4, Basophils % 0.1, Absolute Granulocytes 4.2, Absolute Lymphocytes 0.6 L, Absolute Monocytes 0.7 H, Absolute Eosinophils 0, Absolute Basophils 0, PUBS MCHC 31.3 L Assessment/Plan Assessment/Plan Assessment: 1. Atrial fibrillation 2. Congestive heart failure 3. Short of breath 4. Hypothyroidism 5. Pleural effusions 6. History of tachycardia/bradycardia syndrome 7. Poor nutritional status 8. History of seizures 9. Moderate to severe tricuspid insufficiency 10. Permanent pacemaker 11. Minimally elevated troponin-the troponin is minimally elevated and slowly increasing slightly. At the moment, the etiology and significance of this is unclear. There are no significant ECG changes. For now I would continue to trend the troponin. Recommendations: -Continue current treatment plan. -The patient has been restarted on IV heparin, both for coverage for her anticoagulation which has been held pending thoracentesis and 40 minimally elevated troponin. -Continue to monitor on telemetry -Depending on the troponin curve, consider repeating limited echo cardiac gram to reassess left ventricular wall motion. -Further plans depending on the troponin curve. -Further plans about long-term management depending on further discussions with the family about goals of care. Continue telemetry? Yes
--- NOTE | 2017-03-11 08:54 | PN- Housestaff ---
ANYI DINH,FELX 03/11/17 0853: Subjective Follow-up For: AMS hypothyroidism Complaints: pt unable to provide hx Tele-Events Since Last Visit: afib 72-95, no events Subjective: patient unable to give history- some clear communication of yes and no but unreliable historian. son reports a dry cough. He reports that she spoke a full sentence last night, nonsensical "im going got buy my daughter a car". Review of Systems Constitutional: Reports: see HPI. Comments: patient unable to provide ROS/symptoms Objective Last 24 Hrs of Vital Signs/I&O Vital Signs Date Time Temp Pulse Resp B/P B/P Pulse O2 O2 Flow FiO2 Mean Ox Delivery Rate 03/11 0711 96.4 76 20 112/62 94 Nasal Cannula 03/11 0000 Nasal 4.0L Cannula 03/10 2323 96.2 100 20 102/60 90 Nasal Cannula 03/10 1805 102 100/70 03/10 1526 96.5 03/10 1512 77 20 92/62 95 Nasal 4.0L Cannula Intake & Output 03/11 1600 03/11 0800 03/11 0000 Intake Total 600 225 Output Total 325 125 Balance 275 100 Intake, IV 600 225 Output, Urine 325 125 Patient 203 lb Weight Weight Bhargavi Lift Measurement Method Physical Exam General Appearance: Moderate Distress Skin: No Rashes, decubitus ulcer Skin Temp/Moisture Exam: Warm/Dry Sepsis Skin Exam (color): Pale HEENT: Atraumatic, PERRLA, EOMI Neck: No JVD Cardiovascular: Normal S1, Normal S2, unable to assess murumurs due to breath sound interference Lungs: crackles and wheezes throughout Abdomen: Normal Bowel Sounds, Soft, No Tenderness, No Masses Extremities: edema bilaterally legs 2+ Vascular: Pulses Symmetrical Sepsis Peripheral Pulse Location: Radial Sepsis Peripheral Pulse Exam: Normal Current Medications: Current Medications Sig/Liudmila Start time Last Medication Dose Route Stop Time Status Admin Acetaminophen 650 MG Q6P PRN 03/08 0115 AC PO Acetaminophen 1,000 MG Q6P PRN 03/08 0115 AC 03/08 IV 0918 Albuterol Sulfate 3 ML Q4P PRN 03/10 1145 AC INH Collagenase 1 ANUPAM DAILY 03/08 1400 AC 03/11 TOP 1039 Digoxin 0.125 MG DAILY@1400 03/10 1400 AC 03/10 PO 1805 Furosemide 40 MG 7:30 AM, & 4:30 PM 03/08 0730 AC 03/11 IV 0844 Glycerin 2 SPRAY Q2P PRN 03/09 1430 AC 03/10 PO 1037 Heparin Sodium 25,000 UNIT Q24H 03/11 1000 AC 03/11 (Porcine) IV 1045 Sodium Chloride 500 ML Levothyroxine Sodium 75 MCG DAILY 03/11 1000 AC 03/11 IV 1037 Phenytoin 100 MG BID 03/08 1000 AC 03/11 Sodium Chloride 50 ML IV 0844 Polyethylene Glycol 17 GM DAILY 03/09 1333 AC 03/11 PO 0844 Senna/Docusate Sodium 2 TAB DAILY PRN 03/09 1345 AC 03/11 PO 0830 Sodium Chloride 1,000 ML Q13H 03/10 1200 AC 03/10 IV 1343 Last 24 Hrs of Lab/Kurt Results Last 24 Hrs of Labs/Mics: Laboratory Tests 03/11/17 0810: Anion Gap 9, Estimated GFR 59 L, BUN/Creatinine Ratio 44.4 H, Phosphorus 3.9, Magnesium 2.0, Troponin I 0.18 *H, PT 19.2 H, INR 1.84 H 03/10/17 2250: Troponin I 0.17 *H 03/10/17 1535: Troponin I 0.16 *H Orders EKG Findings: NORMAL EKG WITH POSITIVE TROPONINS Lines/Diet/Fluids Catheters/Tubes: NG Warner Still Needed? Yes Drains Still Needed? Yes Lines: peripheral lines Restraints: 2 point restraints so she doesnt pull out her tubes Assessment/Plan Assessment: assessment: 87 year old lady with atrial fibrillation, COPD, HLD, arrhythmia s/p pacer, hypothyroidism, seizure disorder,Patient was recently hospitalized at [facility] last month with bowel obstruction, significant hypothyroidism and atrial fibrillation that presented yesterday with altered mental status, dyspnea and increasing generalized edema. Patient was found to be extremely hypothyroid. Her thyroid medications were stopped after her pacemaker was placed recently. AMS CHF ELEVATED TROPONINS HYPOTHYROID FEEDING DIFFICULTY plan: 1. Altered mental status: might be due dehydration, electrolyte imbalance, as the patient was not able to eat or drink or due to hypoxic respiratory failure infection secondary to fluid accumilation in the lung as the patient stopped taking her lasix in the intermediate. patient is severely hypothyroid which might have added to her deteriorated mental status and fluid overload. -head CT normal which r/o any focal brain pathology. -monitor her I&O -monitor her electrolytes -monitor vitals and blood pressure 2. Acute on top of Chronic decompensated CHF -On lasix 40 bid. watch bp. -thoracocentesis planned for tomorrow as per dr. trejo. -weight checks -monitor bep daily -Monitor I &O High trops: trending upwards, all three positive , EKG was unremarkable heparin started for possible ACS Feeding NG tube inserted for feeding. follow rec from water resource project manager. Pleural effusion: -pt is scheduled for thoracocentesis on Monday 03/12 if her INR is accepatable -INR today is 1.84 Hypothyroidism: * Decrease IV Levothyroxin to 75 mcg and check FT4 in tomorrow as per Dr. Pillai recomm Seizures: - Dilantin level 19.1 -continue Dilantin Atrial fibrillation: echo on 03/09/17 showed : Moderate to severe right atrial dilatation. Catheter/ pacemaker wire in the right atrium, Moderate to severe left atrial dilatation, Mild mitral regurgitation.,Trace aortic regurgitation - Hold warfarin for thoracocentesis. Currently on heparin for positive troponins. -continue 2 mg vitamin K by mouth - oral digoxin 0.125 mg. Follow-up a digoxin level at steady state and at least 6 hours (ideally 12 hours) after the last dosage was given as per cardio rec Decubitus ulcer: * pressure bed sore on coccyx aroung 2X3 cm deep non draining. - general expected healing is poor due to anasarca and general poor condition of the paitnet -continue aggressive offloading and low air loss mattress, as per wound care consult -coninue Wound care can be Santyl ointment covered with Xeroform and Adaptic cleanse daily. ---accounrding to Dr Gracia recommendation -continue coveringLeft arm with Xeroform daily. full code Problem List: 1. Atrial fibrillation 2. Seizure disorder 3. Hypothyroidism 4. Full code status 5. Anasarca 6. Bed sore 7. CHF (congestive heart failure) Pain Ratin Pain Location: NA Pain Goal: Pain 4 or less Pain Plan: NA Tomorrow's Labs & Rationales: BEP INR DVT/Prophylaxis: pharmacological Consulting Request: Consulting Specialty: Endocrinology DONNA HANNON 03/11/17 0956: Attending MD Review Statement Attending Statement Attending MD Statement: examined this patient, discuss w/resident/PA/FORM TAMPER OPERATOR, agreed w/resident/PA/FORM TAMPER OPERATOR, discussed with family, reviewed EMR data (avail), discussed with nursing, discussed with case mgmt, reviewed images, amended to note Attending Assessment/Plan: The patient was seen and discussed with house staff. Mental status improving slightly, afib on digoxin, i/v levothyroxine 100mcg decreased to 75 mcg f/u endo for management, PO intake continues to be problematic, advised at length for nutritonal support agreed to NGT. Will continue to encourage nutritional supplements. Patient INR subtherapeutic today, will bridge i/v heparin for Possible thoracentesis 03/12. Cardiology following, follow INR, limited prognosis , spoke to patient family daughter at length. agreed to treatment plan
[2017-03-11 08:58] LABS: PT 19.2 SEC (9.4-12.5)
--- NOTE | 2017-03-11 12:12 | PN- Endocrinology ---
Assessment/Plan Assessment: 87 yo female with PMH of COPD, hypothyroidism, hyperlipidemia, seizure disorder, possible TIA, pulmonary emoblus, and frequent UTI, who was admitted to after she had a mechanical fall on 02/14/2017. Patient was readmitted last night for altered mental status, significant sweling and dyspnea. Blood work showed TSH 21.2, free T 4 0.73 and TT3 1.02. At senior care, she was on [place] thyroid 120 mg daily. On 03/08/2017, she was put on Levothyroxine 100 mcg iv daily. Patient was found to be in atrila fibrillation. Repeat free T4 was up to 1.01. Levothyroxine was decreased to 75 mcg iv daily. Her Troponin was mildly elevated with peak level of 0.18. She was put on heparin drip. In addition, patient was started on tube feeding. Plan: 1. continue Levothyroxine 75 mcg iv daily; 2. monitor free T4 and TSH in 2 days to look for a trend. will follow. Subjective Subjective: Her mental status seems slightly better. Objective Last 24 Hrs of Vital Signs/I&O Vital Signs Date Time Temp Pulse Resp B/P B/P Pulse O2 O2 Flow FiO2 Mean Ox Delivery Rate 03/11 0711 96.4 76 20 112/62 94 Nasal Cannula 03/11 0000 Nasal 4.0L Cannula 03/10 2323 96.2 100 20 102/60 90 Nasal Cannula 03/10 1805 102 100/70 03/10 1526 96.5 03/10 1512 77 20 92/62 95 Nasal 4.0L Cannula Intake & Output 03/11 1600 03/11 0800 03/11 0000 Intake Total 600 225 Output Total 325 125 Balance 275 100 Intake, IV 600 225 Output, Urine 325 125 Patient 203 lb Weight Weight Bhargavi Lift Measurement Method Results Pertinent Lab/Kurt Results: Laboratory Tests 03/11 03/10 03/10 0810 2250 1535 Chemistry Sodium (137 - 145 mmol/L) 144 Potassium (3.5 - 5.1 mmol/L) 3.9 Chloride (98 - 107 mmol/L) 107 Carbon Dioxide (22 - 30 mmol/L) 28 Anion Gap (5 - 16) 9 BUN (7 - 17 mg/dL) 40 H Creatinine (0.5 - 1.0 mg/dL) 0.9 Estimated GFR (>60 ml/min) 59 L BUN/Creatinine Ratio (7 - 25 %) 44.4 H Phosphorus (2.5 - 4.5 mg/dL) 3.9 Magnesium (1.6 - 2.3 mg/dL) 2.0 Troponin I (< 0.11 ng/ml) 0.18 *H 0.17 *H 0.16 *H Coagulation PT (9.4 - 12.5 SEC) 19.2 H INR (0.90 - 1.19) 1.84 H
--- NOTE | 2017-03-11 12:59 | PN- Pulmonary ---
Subjective HPI/Critical Care Issues: The patient is arousable but not able to offer any complaints. The patient's son reports she has a dry cough. She does not appear to be in any respiratory distress. Objective Current Medications: Current Medications Sig/Liudmila Start time Last Medication Dose Route Stop Time Status Admin Acetaminophen 650 MG Q6P PRN 03/08 0115 AC PO Acetaminophen 1,000 MG Q6P PRN 03/08 0115 AC 03/08 IV 0918 Albuterol Sulfate 3 ML Q4P PRN 03/10 1145 AC INH Collagenase 1 ANUPAM DAILY 03/08 1400 AC 03/11 TOP 1039 Digoxin 0.125 MG DAILY@1400 03/10 1400 AC 03/10 PO 1805 Furosemide 40 MG 7:30 AM, & 4:30 PM 03/08 0730 AC 03/11 IV 0844 Glycerin 2 SPRAY Q2P PRN 03/09 1430 AC 03/10 PO 1037 Heparin Sodium 25,000 UNIT Q24H 03/11 1000 AC 03/11 (Porcine) IV 1045 Sodium Chloride 500 ML Levothyroxine Sodium 75 MCG DAILY 03/11 1000 AC 03/11 IV 1037 Phenytoin 100 MG BID 03/08 1000 AC 03/11 Sodium Chloride 50 ML IV 0844 Polyethylene Glycol 17 GM DAILY 03/09 1333 AC 03/11 PO 0844 Senna/Docusate Sodium 2 TAB DAILY PRN 03/09 1345 AC 03/11 PO 0830 Sodium Chloride 1,000 ML Q13H 03/10 1200 AC 03/10 IV 1343 Vital Signs & I&O Last 24 Hrs of Vitals and I&O: Vital Signs Date Time Temp Pulse Resp B/P B/P Pulse O2 O2 Flow FiO2 Mean Ox Delivery Rate 03/11 800 Nasal 4.0L Cannula 03/11 0711 96.4 76 20 112/62 94 Nasal Cannula 03/11 0000 Nasal 4.0L Cannula 03/10 2323 96.2 100 20 102/60 90 Nasal Cannula 03/10 1805 102 100/70 03/10 1526 96.5 03/10 1512 77 20 92/62 95 Nasal 4.0L Cannula Intake & Output 03/11 1600 03/11 0800 03/11 0000 Intake Total 600 225 Output Total 325 125 Balance 275 100 Intake, IV 600 225 Output, Urine 325 125 Patient 203 lb Weight Weight Bhargavi Lift Measurement Method Exam General Appearance: elderly, frail Head: atraumatic, normal appearance Neck: supple Respiratory: few scattered ronchi Cardiovascular: irregular heart rate Abdomen: normal bowel sounds, soft, non-tender Extremities: symmetrical edema Skin: intact, warm/dry Results Last 24 Hrs of Lab Results: Laboratory Tests 03/11/17 0810: Anion Gap 9, Estimated GFR 59 L, BUN/Creatinine Ratio 44.4 H, Phosphorus 3.9, Magnesium 2.0, Troponin I 0.18 *H, PT 19.2 H, INR 1.84 H 03/10/17 2250: Troponin I 0.17 *H 03/10/17 1535: Troponin I 0.16 *H Impression/Plan Impression/Plan Impression/Plan: 1. Altered mental status, thought to be related to worsening hypoxia in the setting of volume overload. 2. Atrial fibrillation with increased heart rate, cardiology following, previously on warfarin. 3. Hypothyroidism. 4. Bilateral pleural effusions. 5. History of tachybradycardia syndrome. 6. Poor nutritional status. 7. History of seizures without current seizure activity noted. 8. 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 Recommendations: * Continue rate control and management of atrial fibrillation as per cardiology. * Continue diuresis/negative fluid balance. * IV heparin to continue for anticoagulation. * Check a follow-up chest x-ray, rule out need for thoracentesis. * Taper oxygen down for saturations greater than 92%. * Continue nebs/TRC. * Continue with pain control. * DVT prophylaxis at all times. * Continue all supportive care.
--- NOTE | 2017-03-11 13:57 | Event Note ---
See Addendum Event Note Event Note: Guaiac-positive- from NG tube aspirate * Discussed with Dr. Villegas and Dr. michel * Advised to stop heparin now * Patient denies any chest pain * No EKG changes * Mild troponin elevation. * Will trend troponins
[2017-03-11 15:43] VITALS: BP 96/54
[2017-03-11 15:57] LABS: ABSOLUTE BASOPHIL COUNT 0 /CUMM (0.0-0.2); ABSOLUTE EOSINOPHIL COUNT 0 /CUMM (0.0-0.7); ABSOLUTE GRANULOCYTE CT 4.7 /CUMM (1.4-6.5); ABSOLUTE LYMPH COUNT 0.3 /CUMM (1.2-3.4); ABSOLUTE MONOCYTE COUNT 0.5 /CUMM (0.10-0.60); BASOPHIL % 0 % (0.0-2.0); EOSINOPHIL % 0.1 % (0-5); HEMATOCRIT 40.1 % (37-47); MEAN CORPUSCULAR HGB CONC 30.9 G/DL (33.0-37.0); MEAN CORPUSCULAR VOLUME 90.6 FL (81.0-99.0); MEAN PLATELET VOLUME 9.3 FL (7.4-10.4); PLATELET COUNT 117 /CUMM (130-400); RBC DISTRIBUTION WIDTH 19.6 % (11.5-14.5); RED BLOOD CELL CT 4.43 /CUMM (4.20-5.40); WHITE BLOOD CELL COUNT 5.5 /CUMM (4.8-10.8)
--- NOTE | 2017-03-11 15:58 | NUR ---
SHIFT NOTE: PATIENT TROPONIN TRENDING UPWARDS TO 0.18, HEPARIN GTT INITIATED. TUBE FEED INITIATED. DARK ASPIRATE TAKEN FROM NGT WAS HEME +. HEPARIN AND TUBE FEED D/C'D, LABS DRAWN. DR. DE SANTIAGO, DR. HANNON AT BEDSIDE TO EVALUATE. WCTM.
[2017-03-11 16:00] LABS: GRANULOCYTE % 84.4 % (42.2-75.2)
[2017-03-11 16:14] LABS: PTT 45 SEC (25-37)
--- NOTE | 2017-03-11 21:20 | RADIOLOGY REPORT ---
EXAMINATION: XR PORTABLE CHEST CLINICAL INFORMATION: Worsening hypoxia COMPARISON: 03/10/2017 TECHNIQUE: Portable frontal view of the chest was obtained. FINDINGS: Heart size remains enlarged. Slight improvement in CHF with partially loculated right greater than left pleural effusions of moderate size. Pacer device and NG tube remains stable grossly in good position. No ectopic air. No other change. IMPRESSION: Persistent right greater than left pleural effusions. Underlying CHF suspected. Effusions remain loculated.
[2017-03-11 23:11] VITALS: BP 102/56
[2017-03-12 02:42] LABS: ABSOLUTE BASOPHIL COUNT 0 /CUMM (0.0-0.2); ABSOLUTE EOSINOPHIL COUNT 0 /CUMM (0.0-0.7); ABSOLUTE GRANULOCYTE CT 6.5 /CUMM (1.4-6.5); ABSOLUTE LYMPH COUNT 0.5 /CUMM (1.2-3.4); ABSOLUTE MONOCYTE COUNT 0.8 /CUMM (0.10-0.60); BASOPHIL % 0 % (0.0-2.0); EOSINOPHIL % 0 % (0-5); GRANULOCYTE % 83.9 % (42.2-75.2); HEMATOCRIT 42.6 % (37-47); MEAN CORPUSCULAR HGB 28.2 PG (27.0-31.0); MEAN CORPUSCULAR HGB CONC 31.1 G/DL (33.0-37.0); MEAN CORPUSCULAR VOLUME 90.6 FL (81.0-99.0); MEAN PLATELET VOLUME 10.2 FL (7.4-10.4); PLATELET COUNT 130 /CUMM (130-400); RBC DISTRIBUTION WIDTH 18.6 % (11.5-14.5); WHITE BLOOD CELL COUNT 7.8 /CUMM (4.8-10.8)
[2017-03-12 07:19] VITALS: BP 100/60
--- NOTE | 2017-03-12 09:06 | PN- Housestaff ---
See Addendum Subjective Follow-up For: 1. Altered mental status 2 CHF 3. Hypothyroidism 4. Decubitus ulce Complaints: pain scale (0-10) (COULDN'T BE ASSESSED) Tele-Events Since Last Visit: A FIB 90-100 PVCS Review of Systems Constitutional: Denies: no symptoms. Objective Last 24 Hrs of Vital Signs/I&O Vital Signs Date Time Temp Pulse Resp B/P B/P Pulse O2 O2 Flow FiO2 Mean Ox Delivery Rate 03/12 1228 129 18 92/54 91 Nasal 4.0L Cannula 03/12 0817 96.7 03/12 0719 95.7 90 20 100/60 93 Nasal 4.0L Cannula 03/11 2311 94.7 90 20 102/56 93 Nasal Cannula 03/11 2300 96.5 03/11 2149 Nasal 4.0L Cannula 03/11 1543 94.6 96 20 96/54 95 Nasal 4.0L Cannula 03/11 1427 95 Nasal 4.0L Cannula Intake & Output 03/12 1600 03/12 0800 03/12 0000 Intake Total Output Total 100 350 Balance -100 -350 Output, Urine 100 350 Physical Exam General Appearance: ALTERED MENTAL STATUS Skin: ULCERS AND BED SORES Skin Temp/Moisture Exam: Cool/Dry HEENT: Atraumatic, PERRLA Neck: Supple Cardiovascular: Normal S1, Normal S2, No Murmurs (IRREGULAR IRREGULAR) Lungs: Clear to Auscultation, Normal Air Movement Abdomen: Normal Bowel Sounds, Soft, No Tenderness Current Medications: Current Medications Sig/Liudmila Start time Last Medication Dose Route Stop Time Status Admin Acetaminophen 650 MG Q6P PRN 03/08 0115 AC PO Acetaminophen 1,000 MG Q6P PRN 03/08 0115 AC 03/08 IV 0918 Albuterol Sulfate 3 ML Q4P PRN 03/10 1145 AC INH Collagenase 1 ANUPAM DAILY 03/08 1400 AC 03/12 TOP 1229 Digoxin 0.125 MG DAILY@03/10 1400 AC 03/10 PO 1805 Furosemide 40 MG 7:30 AM, & 4:30 PM 03/08 0730 AC 03/11 IV 1628 Glycerin 2 SPRAY Q2P PRN 03/09 1430 AC 03/10 PO 1037 Levothyroxine Sodium 75 MCG DAILY 03/11 1000 AC 03/12 IV 1230 Pantoprazole Sodium 40 MG BID 03/11 1403 AC 03/12 IV 1229 Phenytoin 100 MG BID 03/08 1000 AC 03/12 Sodium Chloride 50 ML IV 1228 Polyethylene Glycol 17 GM DAILY 03/09 1333 AC 03/11 PO 0844 Senna/Docusate Sodium 2 TAB DAILY PRN 03/09 1345 AC 03/11 PO 0830 Sodium Chloride 1,000 ML Q13H 03/10 1200 AC 03/12 IV 0100 Last 24 Hrs of Lab/Kurt Results Last 24 Hrs of Labs/Mics: Laboratory Tests 03/12/17 1100: Pleural pH 7.33 03/12/17 1100: Fluid WBC 306 H, Fld Mesothelial Cells , Fld Total RBCs Counted 49 H 03/12/17 1100: Lymphocytes 16, % Normal PMNs 2, Fluid Glucose 65, Fluid Total Protein < 2.0, Fluid Albumin < 1.0, Fluid LDH 248 03/12/17 0145: CBC w Diff NO MAN DIFF REQ, RBC 4.70, MCV 90.6, MCH 28.2, RDW 18.6 H, MPV 10.2, Gran % 83.9 H, Lymphocytes % 5.9 L, Monocytes % 10.2 H, Eosinophils % 0, Basophils % 0 L, Absolute Granulocytes 6.5, Absolute Lymphocytes 0.5 L, Absolute Monocytes 0.8 H, Absolute Eosinophils 0, Absolute Basophils 0, PUBS MCHC 31.1 L 03/11/17 1530: Troponin I 0.10, APTT 45 H, CBC w Diff NO MAN DIFF REQ, RBC 4.43, MCV 90.6, MCH 28.0, RDW 19.6 H, MPV 9.3, Gran % 84.4 H, Lymphocytes % 5.8 L, Monocytes % 9.7 H, Eosinophils % 0.1, Basophils % 0 L, Absolute Granulocytes 4.7, Absolute Lymphocytes 0.3 L, Absolute Monocytes 0.5, Absolute Eosinophils 0, Absolute Basophils 0, PUBS MCHC 30.9 L Microbiology 03/12 1100 BODY FLUID: Body Fluid Culture - RECD 03/12 1100 BODY FLUID: Gram Stain - RECD Assessment/Plan Assessment: assessment: 87 year old lady with atrial fibrillation, COPD, HLD, arrhythmia s/p pacer, hypothyroidism, seizure disorder,Patient was recently hospitalized at [facility] last month with bowel obstruction, significant hypothyroidism and atrial fibrillation that presented yesterday with altered mental status, dyspnea and increasing generalized edema. Patient was found to be extremely hypothyroid. Her thyroid medications were stopped after her pacemaker was placed recently. CHF PLEURAL EFFUSION ELEVATED TROPONINS HYPOTHYROID FEEDING DIFFICULTY plan: # Altered mental status: might be due dehydration, electrolyte imbalance, as the patient was not able to eat or drink or due to hypoxic respiratory failure infection secondary to fluid accumilation in the lung as the patient stopped taking her lasix in the senior living. patient is severely hypothyroid which might have added to her deteriorated mental status and fluid overload. -head CT normal which r/o any focal brain pathology. -monitor her I&O -monitor her electrolytes -monitor vitals and blood pressure # Acute on top of Chronic decompensated CHF -IV lasix 40 mg -thoracocentesis planned for tomorrow as per dr. trejo. -weight checks -monitor bep daily -Monitor I & o #hypothermia tymp temp this morning was 95.7 yossi hugger #High trops: trending upwards, all three positive , EKG was unremarkable hold heparin today - pt had guiac +ve nasal asp yesterday #Feeding NG tube inserted for feeding. follow rec from insurance producer - possible PEG tube insertin in the futur eif th family agrees. #Pleural effusion: -Pt had thoracocentesis of around 1.6 L done this morning, fluid WBC of 306, -INR today is 1.84 on 03/11/17 will be scheduled for thoracocentesis from the left side tomorrow Hypothyroidism: * Decrease IV Levothyroxin to 75 mcg and check FT4 in tomorrow as per Dr. Pillai recomm Seizures: - Dilantin level 19.1 -continue Dilantin Atrial fibrillation: echo on 03/09/17 showed : Moderate to severe right atrial dilatation. Catheter/ pacemaker wire in the right atrium, Moderate to severe left atrial dilatation, Mild mitral regurgitation.,Trace aortic regurgitation - Hold warfarin for thoracocentesis. hold heparin as pt had Guiac +ve NG aspirate -continue 2 mg vitamin K by mouth - oral digoxin 0.125 mg. Follow-up a digoxin level at steady state and at least 6 hours (ideally 12 hours) after the last dosage was given as per cardio rec Decubitus ulcer: * pressure bed sore on coccyx aroung 2X3 cm deep non draining. - general expected healing is poor due to anasarca and general poor condition of the paitnet -continue aggressive offloading and low air loss mattress, as per wound care consult -coninue Wound care can be Santyl ointment covered with Xeroform and Adaptic cleanse daily. ---accounrding to Dr Gracia recommendation -continue coveringLeft arm with Xeroform daily. full code Problem List: 1. Pleural effusion 2. Anasarca 3. History of malignant neoplasm of uterine body 4. Seizure 5. Hypothyroid 6. Bed sore 7. CHF (congestive heart failure) 8. Seizure 9. Hypothermia Pain Ratin Pain Location: n/a Pain Goal: Remain pain free Pain Plan: tylenol ofirmev Tomorrow's Labs & Rationales: INR: SUPRATHERAPEUTIC INR BEP:ON LASIX CBC: INFECTION FT4: HYPOTHYROID DVT/Prophylaxis: pharmacological Consulting Request: Consulting Specialty: Endocrinology
--- NOTE | 2017-03-12 10:32 | NUR ---
SPEECH THERAPY: ATTEMPTED TO SEE PT FOR RE-ASSESSMENT OF SWALLOWING FUNCTION. PT CURRENTLY UNDERGOING THORACENTESIS; UNABLE TO BE SEEN. ST CONTINUE TO FOLLOW CLINICALLY INDICATED. D/W RN.
--- NOTE | 2017-03-12 11:47 | PN- Endocrinology ---
Assessment/Plan Assessment: 87 yo female with PMH of COPD, hypothyroidism, hyperlipidemia, seizure disorder, possible TIA, pulmonary emoblus, and frequent UTI, who was admitted to after she had a mechanical fall on 02/14/2017. Patient was readmitted last night for altered mental status, significant sweling and dyspnea. Blood work showed TSH 21.2, free T 4 0.73 and TT3 1.02. At long-term, she was on [place] thyroid 120 mg daily. On 03/08/2017, she was put on Levothyroxine 100 mcg iv daily. Patient was found to be in atrila fibrillation. Repeat free T4 was up to 1.01. Levothyroxine was decreased to 75 mcg iv daily. Her Troponin was mildly elevated with peak level of 0.18. She was put on heparin drip. In addition, patient was started on tube feeding which was held due to ? bleeding. Plan: continue Levothyroxine 75 mcg iv daily for now; monitor TSH and free T4 on 03/14/2017 to look for a trend. will follow. Subjective Subjective: She is still confused. Objective Last 24 Hrs of Vital Signs/I&O Vital Signs Date Time Temp Pulse Resp B/P B/P Pulse O2 O2 Flow FiO2 Mean Ox Delivery Rate 03/12 0817 96.7 03/12 0719 95.7 90 20 100/60 93 Nasal 4.0L Cannula 03/11 2311 94.7 90 20 102/56 93 Nasal Cannula 03/11 2300 96.5 03/11 2149 Nasal 4.0L Cannula 03/11 1543 94.6 96 20 96/54 95 Nasal 4.0L Cannula 03/11 1427 95 Nasal 4.0L Cannula Intake & Output 03/12 1600 03/12 0800 03/12 0000 Intake Total Output Total 100 350 Balance -100 -350 Output, Urine 100 350 Results Pertinent Lab/Kurt Results: Laboratory Tests 03/12 03/12 03/12 1100 1100 1100 Other Body Source Fluid WBC Pending Fld Total RBCs Counted Pending Fluid Glucose Pending Fluid Total Protein Pending Fluid Albumin Pending Fluid LDH Pending Pleural pH (PH) 7.33 03/12 03/11 0145 1530 Chemistry Troponin I (< 0.11 ng/ml) 0.10 Coagulation APTT (25 - 37 SEC) 45 H Hematology CBC w Diff NO MAN DIFF REQ NO MAN DIFF REQ WBC (4.8 - 10.8 /CUMM) 7.8 5.5 RBC (4.20 - 5.40 /CUMM) 4.70 4.43 Hgb (12.0 - 16.0 G/DL) 13.2 12.4 Hct (37 - 47 %) 42.6 40.1 MCV (81.0 - 99.0 FL) 90.6 90.6 MCH (27.0 - 31.0 PG) 28.2 28.0 RDW (11.5 - 14.5 %) 18.6 H 19.6 H Plt Count (130 - 400 /CUMM) 130 117 L MPV (7.4 - 10.4 FL) 10.2 9.3 Gran % (42.2 - 75.2 %) 83.9 H 84.4 H Lymphocytes % (20.5 - 51.1 %) 5.9 L 5.8 L Monocytes % (1.7 - 9.3 %) 10.2 H 9.7 H Eosinophils % (0 - 5 %) 0 0.1 Basophils % (0.0 - 2.0 %) 0 L 0 L Absolute Granulocytes (1.4 - 6.5 /CUMM) 6.5 4.7 Absolute Lymphocytes (1.2 - 3.4 /CUMM) 0.5 L 0.3 L Absolute Monocytes (0.10 - 0.60 /CUMM) 0.8 H 0.5 Absolute Eosinophils (0.0 - 0.7 /CUMM) 0 0 Absolute Basophils (0.0 - 0.2 /CUMM) 0 0 PUBS MCHC (33.0 - 37.0 G/DL) 31.1 L 30.9 L
--- NOTE | 2017-03-12 12:08 | RADIOLOGY REPORT ---
EXAMINATION: XR PORTABLE CHEST CLINICAL INFORMATION: Status post right-sided thoracentesis. COMPARISON: Chest radiograph 03/11/2017 TECHNIQUE: Portable frontal view of the chest was obtained. FINDINGS: Stable cardiomegaly mediastinum silhouette. Nasogastric tube is seen coursing below the diaphragm. Left-sided single lead pacemaker is unchanged. Significant interval decrease in the right-sided pleural effusion. A small effusion persists. There is a moderate sized left pleural effusion, slightly increased compared to prior. Similar bilateral airspace disease. There is been interval increase in aeration to the right lung. Question tiny right-sided pneumothorax. IMPRESSION: 1. Improved aeration to the right lung with significant decrease in right pleural effusion. Question tiny lateral right-sided pneumothorax which likely represents an ex vacuo pneumothorax. Follow-up chest x-ray has been ordered in 2 hours to document stability. 2. Moderate sized left pleural effusion is slightly increased compared to prior. 3. Similar bilateral airspace disease
--- NOTE | 2017-03-12 12:17 | PN- Cardiology ---
Subjective Subjective: Remains confused. Remains in atrial fibrillation with a ventricular response of around 100 bpm on digoxin 0.125 mg daily. Objective Vital Signs and I&Os Vital Signs Date Time Temp Pulse Resp B/P B/P Pulse O2 O2 Flow FiO2 Mean Ox Delivery Rate 03/12 0817 96.7 03/12 0719 95.7 90 20 100/60 93 Nasal 4.0L Cannula 03/11 2311 94.7 90 20 102/56 93 Nasal Cannula 03/11 2300 96.5 03/11 2149 Nasal 4.0L Cannula 03/11 1543 94.6 96 20 96/54 95 Nasal 4.0L Cannula 03/11 1427 95 Nasal 4.0L Cannula Intake & Output 03/12 1600 03/12 0800 03/12 0000 03/11 1600 03/11 0803/11 0000 Intake Total 630 600 225 Output Total 100 350 325 125 Balance -100 -350 630 275 100 Intake, IV 600 600 225 Intake, Oral 0 Intake, Other 30 Output, Urine 100 350 325 125 Patient 203 lb Weight Weight Bhargavi Lift Measurement Method Physical Exam: Chronically ill-appearing elderly female who is moaning and unable to answer questions. Vital signs: See above. HEENT: Normocephalic, atraumatic, EOMI, dry mucous membranes. Neck: No JVD, no bruits. Lungs: Decreased breath sounds bilaterally. Heart: S1, S2 with grade 1/6 systolic murmur. Extremities: Positive edema. Current Medications: Current Medications Sig/Liudmila Start time Last Medication Dose Route Stop Time Status Admin Acetaminophen 650 MG Q6P PRN 03/08 0115 AC PO Acetaminophen 1,000 MG Q6P PRN 03/08 0115 AC 03/08 IV 0918 Albuterol Sulfate 3 ML Q4P PRN 03/10 1145 AC INH Collagenase 1 ANUPAM DAILY 03/08 1400 AC 03/11 TOP 1039 Digoxin 0.125 MG DAILY@1400 03/10 1400 AC 03/10 PO 1805 Furosemide 40 MG 7:30 AM, & 4:30 PM 03/08 0730 AC 03/11 IV 1628 Glycerin 2 SPRAY Q2P PRN 03/09 1430 AC 03/10 PO 1037 Heparin Sodium 25,000 UNIT Q24H 03/11 1000 DC 03/11 (Porcine) IV 1045 Sodium Chloride 500 ML Levothyroxine Sodium 75 MCG DAILY 03/11 1000 AC 03/11 IV 1037 Pantoprazole Sodium 40 MG BID 03/11 1403 AC 03/11 IV 2141 Phenytoin 100 MG BID 03/08 1000 AC 03/11 Sodium Chloride 50 ML IV 2141 Polyethylene Glycol 17 GM DAILY 03/09 1333 AC 03/11 PO 0844 Senna/Docusate Sodium 2 TAB DAILY PRN 03/09 1345 AC 03/11 PO 0830 Sodium Chloride 1,000 ML Q13H 03/10 1200 AC 03/12 IV 0100 Results Last 48 Hrs of Labs/Mics: Laboratory Tests 03/12/17 1100: Pleural pH 7.33 03/12/17 1100: Fluid WBC Pending, Fld Total RBCs Counted Pending 03/12/17 1100: Fluid Glucose 65, Fluid Total Protein < 2.0, Fluid Albumin < 1.0, Fluid LDH 248 03/12/17 0145: CBC w Diff NO MAN DIFF REQ, RBC 4.70, MCV 90.6, MCH 28.2, RDW 18.6 H, MPV 10.2, Gran % 83.9 H, Lymphocytes % 5.9 L, Monocytes % 10.2 H, Eosinophils % 0, Basophils % 0 L, Absolute Granulocytes 6.5, Absolute Lymphocytes 0.5 L, Absolute Monocytes 0.8 H, Absolute Eosinophils 0, Absolute Basophils 0, PUBS MCHC 31.1 L 03/11/17 1530: Troponin I 0.10, APTT 45 H, CBC w Diff NO MAN DIFF REQ, RBC 4.43, MCV 90.6, MCH 28.0, RDW 19.6 H, MPV 9.3, Gran % 84.4 H, Lymphocytes % 5.8 L, Monocytes % 9.7 H, Eosinophils % 0.1, Basophils % 0 L, Absolute Granulocytes 4.7, Absolute Lymphocytes 0.3 L, Absolute Monocytes 0.5, Absolute Eosinophils 0, Absolute Basophils 0, PUBS MCHC 30.9 L 03/11/17 0810: Anion Gap 9, Estimated GFR 59 L, BUN/Creatinine Ratio 44.4 H, Phosphorus 3.9, Magnesium 2.0, Troponin I 0.18 *H, PT 19.2 H, INR 1.84 H 03/10/17 2250: Troponin I 0.17 *H 03/10/17 1535: Troponin I 0.16 *H Recent Imaging Studies: CXR s/p R thoracentesis (03/12/2017): 1. Improved aeration to the right lung with significant decrease in right pleural effusion. Question tiny lateral right-sided pneumothorax which likely represents an ex vacuo pneumothorax. Follow-up chest x-ray has been ordered in 2 hours to document stability. 2. Moderate sized left pleural effusion is slightly increased compared to prior. 3. Similar bilateral airspace disease CXR (03/11/2017): Persistent right greater than left pleural effusions. Underlying CHF suspected. Effusions remain loculated. Limited echocardiogram (03/09/2017): Normal size left ventricle. Mild concentric left ventricular hypertrophy. No obvious regional wall motion abnormalities. Normal left ventricular ejection fraction visually estimated at >60%. Normal right ventricular size and function. Moderate to severe right atrial dilatation. Catheter/pacemaker wire in the right heart. Moderate to severe left atrial dilatation. Mild mitral regurgitation. Trace aortic regurgitation. Moderate to severe tricuspid regurgitation. Assessment/Plan Assessment/Plan [id number] w/ a hx of tobacco use, COPD, hypothyroidism, HLD, Sz disorder, possible TIA, pul embolism w/ warfarin anticoagulation and remote brief bouts of AF who was recently hospitalized here twice and who returns from her STR facility w/ AMS/hypoxemia and who was found to have anasarca w/ evidence of bilateral pleural effusions secondary to acute on chronic diastolic heart failure and marked hypothyroidism despite replacement. Recommendations: * Continue IV furosemide 40 mg twice daily, as her blood pressure tolerates and reassess the need for further IV diuresis in the a.m. * Continue oral digoxin 0.125 mg in the a.m. Follow-up a digoxin level at steady state and at least 6 hours (ideally 12 hours) after the last dosage was given. * Restart diltiazem 30 mg 3 times daily to help with control of the ventricular response, as her blood pressure tolerates. * IV heparin pending thoracentesis. * Continue DVT prophylaxis.
[2017-03-12 12:28] VITALS: BP 92/54
--- NOTE | 2017-03-12 12:31 | ULTRASOUND REPORT ---
CLINICAL HISTORY: This patient is a 87-year-old female with large right pleural effusion. The patient is referred to interventional radiology for ultrasound-guided thoracentesis. PROCEDURE: Ultrasound-guided thoracentesis. COMPARISON: None. ACCESS: 5 Fr Yueh needle/catheter system. PROCEDURALIST: Anibal Torres DO. MEDICATIONS: 8 mL of 1% lidocaine SQ. COMPLICATIONS: None. ESTIMATED BLOOD LOSS: <5 mL. SPECIMENS: 60 mL clear yellow fluid. PROCEDURE NOTE: Appropriate pre-procedure medical history and imaging studies were reviewed. Informed consent was obtained from the patient's daughter prior to the procedure. During this process, the procedure and potential alternatives were explained along with the intended outcome and benefits. The risks of the procedure, including the possibility of an unsuccessful procedure, as well as the risk of not doing the procedure, were discussed. The patient's daughter was given the opportunity to ask questions regarding the procedure and appeared competent to make decisions. A signed consent form documenting this discussion was placed in the medical record. A time-out procedure was performed. The patient was placed in the left decubitus position. Ultrasound images of the right thorax were obtained to localize a moderate to large pleural effusion. No septations are identified. Images were permanently saved to the record. An area of the patient's right back was prepped and draped in the standard sterile fashion. 8 mL of 1% lidocaine was used to obtain local anesthesia of the skin and deeper tissues. A standard small-bore needle was introduced to sample fluid and demonstrated a safe access route. There was no evidence of traversing adjacent organs or vascular structures. A 5 English Yueh needle needle/catheter system was utilized for access. 1.6 L of clear yellow fluid was aspirated before drainage ceased. The catheter was removed and a sterile dressing applied. The patient tolerated the procedure well without evidence of immediate complications. FINDINGS: Large right pleural effusion. IMPRESSION: Successful therapeutic and diagnostic ultrasound-guided right thoracentesis yielding 1.6 L of clear yellow fluid. PLAN: 1. A postprocedure chest x-ray was ordered and will be dictated separately. 2. The patient was stable after the procedure and will be transferred back to his medical room with instructions after standard monitoring.
--- NOTE | 2017-03-12 13:29 | PN- Pulmonary ---
Subjective HPI/Critical Care Issues: S/p thora Large volume removed xray improved Body fluid consitant with a transudate Objective Current Medications: Current Medications Sig/Liudmila Start time Last Medication Dose Route Stop Time Status Admin Acetaminophen 650 MG Q6P PRN 03/08 0115 AC PO Acetaminophen 1,000 MG Q6P PRN 03/08 0115 AC 03/08 IV 0918 Albuterol Sulfate 3 ML Q4P PRN 03/10 1145 AC INH Collagenase 1 ANUPAM DAILY 03/08 1400 03/12 TOP 1229 Digoxin 0.125 MG DAILY@1400 03/10 1400 AC 03/10 PO 1805 Furosemide 40 MG 7:30 AM, & 4:30 PM 03/08 0730 AC 03/11 IV 1628 Glycerin 2 SPRAY Q2P PRN 03/09 1430 AC 03/10 PO 1037 Heparin Sodium 25,000 UNIT Q24H 03/11 1000 DC 03/11 (Porcine) IV 1045 Sodium Chloride 500 ML Levothyroxine Sodium 75 MCG DAILY 03/11 1000 AC 03/12 IV 1230 Pantoprazole Sodium 40 MG BID 03/11 1403 AC 03/12 IV 1229 Phenytoin 100 MG BID 03/08 1000 AC 03/12 Sodium Chloride 50 ML IV 1228 Polyethylene Glycol 17 GM DAILY 03/09 1333 AC 03/11 PO 0844 Senna/Docusate Sodium 2 TAB DAILY PRN 03/09 1345 AC 03/11 PO 0830 Sodium Chloride 1,000 ML Q13H 03/10 1200 AC 03/12 IV 0100 Vital Signs & I&O Last 24 Hrs of Vitals and I&O: Vital Signs Date Time Temp Pulse Resp B/P B/P Pulse O2 O2 Flow FiO2 Mean Ox Delivery Rate 03/12 1228 129 18 92/54 91 Nasal 4.0L Cannula 03/12 0817 96.7 03/12 0719 95.7 90 20 100/60 93 Nasal 4.0L Cannula 03/11 2311 94.7 90 20 102/56 93 Nasal Cannula 03/11 2300 96.5 03/11 2149 Nasal 4.0L Cannula 03/11 1543 94.6 96 20 96/54 95 Nasal 4.0L Cannula 03/11 1427 95 Nasal 4.0L Cannula Intake & Output 03/12 1600 03/12 0800 03/12 0000 Intake Total Output Total 100 350 Balance -100 -350 Output, Urine 100 350 Impression/Plan Impression/Plan Impression/Plan: CT chest IMPRESSION: 1. Moderate to large right-sided pleural effusion, moderate left-sided pleural effusion. 2. Right lower lobe is completely collapsed, the majority of the left lower lobe basilar segments are also nearly completely collapsed. 3. Indeterminate groundglass opacities in the upper lobes likely related to atelectasis. Pulmonary edema neoplastic and infectious etiology less likely though not excluded. 4. Extensive soft tissue edema left side greater than right extending into the left breast age and etiology indeterminate. 5. No aggressive osseous lesions. DICTATED BY: MARIO KWON MD General Appearance more alert mild confusion Skin left arm weeping edema, decub noted HEENT PERRLA, EOMI Neck Supple Cardiovascular irregular rhythm Lungs no breath sounds on RLL, b/l crackles Abdomen edematous soft abdomen Neurological groaning HWANG, unresponsive to voice Extremities No Clubbing (anasarca) IMPRESSION This is an 87-year-old lady with previous history of 45-[id number]-miyt smoking history, emphysema as noted in the CAT scan, 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 Her issues include * Bilateral pleural effusions with generalized anasarca most likely related to significant hypothyroidism, diastolic dysfunction with hypoalbuminemia. No clinical evidence suggestive of significant emphyema or any infection. S/p THora consistant with a transudative effusion * Significant COPD with no active wheezing, no significant CO2 retention * Bilateral atelectasis related to large pleural effusions * Remote history of pulmonary embolism with no clinical evidence suggestive of active venous thromboembolism and patient is appropriately anticoagulated * Profound hypothyroidism most likely contributing to her anasarca and edema * Altered mental status with multiple issues including history of previous seizure, TIA, negative CT scan at this time * Supratherapeutic INR * Diastolic heart failure which appears to be acute on chronic * No clinical evidence suggestive of significant nephrotic syndrome * Decubiti ulcer related to multiple factors as noted above RECOMMENDATION * Continue levothyroxine * COnt diuresis * Can hold antibiotics and observe * Hold warfarin will consider therapeutic and diagnostic thoracentesis on the left side in am * Aggressive bowel regimen * NG tube with feeding if and when able Will follow closely
[2017-03-12 15:17] VITALS: BP 88/52
[2017-03-12 16:58] VITALS: BP 90/50
--- NOTE | 2017-03-12 17:04 | RADIOLOGY REPORT ---
EXAMINATION: CHEST 1 VIEW CLINICAL INFORMATION: Follow-up status post thoracentesis. COMPARISON: Multiple prior exams are reviewed. The most recent is from the same day obtained at 1130 hours. TECHNIQUE: An AP view of the chest was obtained at 1642 hours. FINDINGS: The cardiac silhouette is prominent, but stable. An enteric tube is in position. A single lead pacer is in unchanged position. There is a residual left pleural effusion, decreased in size from prior exam. There is no discernible pneumothorax. There is bibasilar airspace disease, increased at the right lung base. The osseous structures are stable. IMPRESSION: Interval decrease in left pleural effusion status post thoracentesis without a discernible pneumothorax. Persistent airspace disease of the left base. Increasing right lower lobe airspace disease.
--- NOTE | 2017-03-12 20:27 | NUR ---
LATE ENTRY - MORNING LABS WERE NOT DRAWN THIS MORNING. 1500-DR GAMBINO AWARE NOTIFIED AND AWARE.
[2017-03-12 22:30] VITALS: BP 82/50
--- NOTE | 2017-03-12 23:30 | NUR ---
PATIENT RECENTLY ARRIVED FROM [address] [place] [address] AFTER RAPID RESPONSE. MONITOR AFIB AT RATE OF 103. BP 90/DOP. PT OPENS EYES TO VERBAL STIMULI. NGT IN PLACE. TUBE FEED NOT INFUSING,NPO FOT THORACENTESIS IN AM. O2 ON VIA 100% MASK. SAT=88%. L ARM PLACED ON PAD,LEAKING SEROUS FLUID.LOWER EXTREMITIES EDEMATOUS.BOLTON CATHETER TO GRAVITY DRAINAGE.
[2017-03-12 23:58] LABS: ABSOLUTE BASOPHIL COUNT 0 /CUMM (0.0-0.2); ABSOLUTE EOSINOPHIL COUNT 0 /CUMM (0.0-0.7); ABSOLUTE LYMPH COUNT 0.4 /CUMM (1.2-3.4); ABSOLUTE MONOCYTE COUNT 0.9 /CUMM (0.10-0.60); BASOPHIL % 0 % (0.0-2.0); EOSINOPHIL % 0 % (0-5); RED BLOOD CELL CT 4.53 /CUMM (4.20-5.40); WHITE BLOOD CELL COUNT 11.5 /CUMM (4.8-10.8)
[2017-03-13] VITALS: BP 90/0
--- NOTE | 2017-03-13 00:02 | Event Note ---
Event Note Event Note: Patient moved to ICU for acute hypoxic respiratory failure, ABG 7.3/44/42/22. Tabitha contacted to revisit code status in emergency situation. After discussion of management for hypotension, hypoxia and possible arrest, the family decided to defer to the patients wishes in the living will for DNR/DNI, no aggressive interventions including central line placement and vasopressor and ionotropic support. Goals of care were discussed and patients code status was changed to comfort care only.
[2017-03-13 00:04] LABS: ABSOLUTE GRANULOCYTE CT 10.2 /CUMM (1.4-6.5); GRANULOCYTE % 88.6 % (42.2-75.2); HEMATOCRIT 41.5 % (37-47); MEAN CORPUSCULAR HGB CONC 30.5 G/DL (33.0-37.0); MEAN CORPUSCULAR VOLUME 91.7 FL (81.0-99.0); MEAN PLATELET VOLUME 10.1 FL (7.4-10.4); PLATELET COUNT 133 /CUMM (130-400); RBC DISTRIBUTION WIDTH 18.6 % (11.5-14.5)
--- NOTE | 2017-03-13 04:41 | NUR ---
NURSING LATE ENTRY: 2200: PT DROWSEY AND NONVERBAL. PT TACHYPNIC WITH O2 SAT OF 86% ON 4L NC. BP 86/50 AND HEART RATE 88-110 ON THE MONITOR. IV FLUIDS RUNNING AT 75 ML/HR WITH A BOLTON OUTPUT OF ONLY 35ML FOR EIGHT HOURS. DR PÉREZ AND DR. RAZO NOTIFIED OF PT STATUS AND AT BEDSIDE. LABS DRAWN ORDERED, ABGS DRAWN BY RESPIRATORY AND PT PLACED ON 100% VENTI MASK. TUBE FEED PLACED ON HOLD AND PT TRANSFERRED TO ICU ORDERED FOR CLOSER MONITORING. DR PÉREZ ON PHONE WITH DAUGHTER TO DISCUSS FURTHER TREATMENT PLANS AND CODE STATUS. REPORT GIVEN TO TASHA ALVARADO.
[2017-03-13 08:00] VITALS: BP 88/0
--- NOTE | 2017-03-13 08:22 | Discharge Summary ---
Visit Information Visit Dates Admission Date: 03/07/17 Hospital Course Course Attending Physician: LETA GAMBINO MD Primary Care Physician: ORTIZ MENDOZA MD Consulting Request: Consulting Specialty: Endocrinology Hospital Course: 87 yo F with h/o paroxysmal Afib, seizure, TIA, hypothyroidism, PE on coumadin, recurrent UTI, recently admitted to [place] (01/29 02/22) for Afib with RVR subsequently underwent PPM for SSS, conservatively managed for intestinal obstruction and profound hypothyroidism, is sent in from [facility] for generalised edema/ anasarca, left arm weeping and confusion for the past few days. At admission: Vitals: afebrile, HR 90-110's, BP 117/68, sats 90-94% on 4L. Labs: no leukocytosis, INR 4.26, Na 136, BUN 40, glucose 101, lactic acid 1.7, AST 43, Alk phos 197, trop neg, proBNP 3630, TSH 21.2, free T4 0.73. UA cloudy, trace protein, mod LE, WBC 5-10, many bacteria. Utox neg. AB.41/39/68/24. EKG: Afib. CT head: no acute pathology. CT chest: moderate to large right sided pleural effusion, moderate left sided pleural effusion. RLL collapsed, LLL basilar segments are collapsed, groundglass opacities in upper lobes atelectasis vs. Infiltrate. Echo (2017): EF >60%, moderate TR, RVSP elevated. Patient was treated in the hospital for: 1. Acute hypoxemic respiratory failure in the setting of bilateral moderate to large pleural effusions with diffuse anasarca 2/2 exacerbation of diastolic heart failure, severe hypothyroidism and hypoalbuminemia : Patient was admitted to the telemetry floor for close monitoring. Patient was diuresed with IV Lasix with close monitoring of her electrolyte levels. There is no evidence of infection/pneumonia. She was initially administered IV ceftazidime and vancomycin however the they were stopped later as she did not have any systemic signs of infection. She had history of significant COPD, however no active wheezing was noted and there was no hypercarbia. She remained confused/altered showing occasional response to her family. She was found to be hypothermic on the floor and was put on Serene hugger. TRC nebs were continued [id number] however her respiratory status did not improve significantly. She was evaluated by cardiology and pulmonology on the floor. She had history of A. fib and Coumadin was held due to supratherapeutic INR. She got ultrasound-guided thoracentesis of the right side on 03/12/2017 by IR and the pleural fluid turned out to be a transudate. Overnight on the same day patient developed severe respiratory distress and acidosis with oxygen saturations dropping to 42%.She was transferred to the ICU and after intensive discussions with the family made comfort care. 2.Altered mental status: The patient was confused and altered on the floor likely due to delirium hypothyroidismand dehydration. She had history of previous seizures anteriorly and TIA. CAT scan was negative at this time. Patient showed occasional response to her children when cleared by the bedside. She refused to eat anything by mouth and was started on NG tube feeds. She is on IV levothyroxine closely being followed by endocrinology. Opiates, benzos were avoided to prevent exacerbation of her delirium. CODE STATUS was addressed multiple times with the family however the insisted on keeping her full code until the patient is terminal. Her blood cultures remained negative however urine culture grew enterococcus. Her mental status did not improve and she continued to remain confused and altered throughout her hospital stay. 3. Severe Hypothyroidism: patient had severe hypothyroidism at presentation. Blood work showed TSH 21.2, free T 4 0.73 and TT3 1.02. At retirement, she was on [place] thyroid 120 mg daily. She was started on 100 mcg of IV levothyroxine as per endocrinology recommendations, latex dose was reduced to 75 g because of atrial fibrillation. Her heart rate was closely monitored and medication was adjusted accordingly. There was improvement of her T4 levels after 2 days. Patient was found to be hypothermic on the floor and was put on Serene hugger.. Her temperatures improved with warming. Patient's daughter insisted that she be on [place] thyroid which was not an ideal choice since it's animal thyroid hormone extract and is not an accurate indication of the T3/T4 ratio. 4. Severe malnutrition: Patient had an albumin level of 2.7 during admission. She refused to eat anything on the floor unless fed by her own children. She had occasional few bites of food but nothing significant. After a long discussion with the family she was started on NG tube feeds with Jevity as per nutrition recommendations. 5. Elevated troponins: Patient was found to have elevated troponins while on the floor with no significant EKG changes. It was likely secondary to demand ischemia however she did complain of some atypical chest pain and therefore she was started on IV heparin for NSTEMI as per the cage loader's recommendation. Heparin was discontinued later because the patient was found to have bloody NG aspirate. Thereafter it was not started again. Troponins trended down and her chest pain improved. 6.Supratherapeutic INR: Patient's INR initially was 4.26 at presentation and therefore the Coumadin was held. Thereafter it was started once the INR was therapeutic. It was held again prior to the thoracocentesis procedure. 7.Atrial fibrillation: Rate controlled with digoxin and AC with coumadin 8.Seizures: History of seizures. Continued on Dilantin. Dilantin level 19.1 9.Decubitus ulcer: pressure bed sore on coccyx aroung 2X3 cm deep non draining. Managed with Santyl ointment covered with Xeroform and Adaptic cleanse daily. Wound care following DVT prophylaxis Coumadin Full code( initially). Now changed to comfort measures only NG tube feeds mild pain pathway Allergies: Coded Allergies: clarithromycin (N/V PER PT DAUGHTER 01/25/17) nitrofurantoin (N/V 01/25/17)
--- NOTE | 2017-03-13 08:58 | PN- Housestaff ---
FELICITA BENNETT 03/13/17 0858: Subjective Follow-up For: AMS Anasarca w/ evidence of bilateral pleural effusions secondary to acute on chronic diastolic heart failure Marked hypothyroidism Subjective: This morning patient is confused. On 100% Ventimask with oxygen saturation 88%. She is not responsive or following commands. She is s/p right-sided thoracentesis yesterday and removal of 1.6 L transudative fluid. Review of Systems Constitutional: Reports: see HPI. Objective Last 24 Hrs of Vital Signs/I&O Vital Signs Date Time Temp Pulse Resp B/P B/P Pulse O2 O2 Flow FiO2 Mean Ox Delivery Rate 03/13 0000 95.9 103 20 90/0 88 Venti Mask 100% 03/13 0000 88 Venti Mask 100% 03/12 2230 96.2 104 28 82/50 86 Nasal 4.0L Cannula 03/12 2200 102 80/54 03/12 2200 88 Nasal 4.0L Cannula 03/12 1842 98 Nasal 4.0L Cannula 03/12 1658 90/50 03/12 1600 Nasal 4.0L Cannula 03/12 1600 90 90/50 03/12 1553 80 03/12 1517 96.7 62 20 88/52 91 Nasal 4.0L Cannula 03/12 1228 129 18 92/54 91 Nasal 4.0L Cannula Intake & Output 03/13 1600 03/13 0800 03/13 0000 Intake Total 554 340 Output Total 50 35 Balance 504 305 Intake, IV 554 300 Intake, Oral 0 Intake, Tube 40 Feeding Output, Urine 50 35 Physical Exam General Appearance: Moderate Distress Skin: bruises both arms, weeping skin tears left arm HEENT: NG tube in place Cardiovascular: irregularly irregular Lungs: decreased breath sounds Abdomen: Soft Extremities: 1+ pitting edema of bilateral ankles Other Physical Findings: back could not examine Current Medications: Current Medications Sig/Liudmila Start time Last Medication Dose Route Stop Time Status Admin Acetaminophen 650 MG Q6P PRN 03/08 0115 AC PO Acetaminophen 1,000 MG Q6P PRN 03/08 0115 AC 03/08 IV 0918 Albuterol Sulfate 3 ML Q4P PRN 03/10 1145 AC INH Collagenase 1 ANUPAM DAILY 03/08 1400 AC 03/13 TOP 0842 Digoxin 0.125 MG DAILY@1400 03/10 1400 AC 03/12 PO 1553 Diltiazem HCl 30 MG TID 03/12 1600 AC PO Furosemide 40 MG 7:30 AM, & 4:30 PM 03/08 0730 AC 03/11 IV 1628 Glycerin 2 SPRAY Q2P PRN 03/09 1430 AC 03/10 PO 1037 Hydrocortisone 100 MG ONE ONE 03/12 2300 DC 03/12 Sodium Succinate IV 03/12 2301 2302 Levothyroxine Sodium 75 MCG DAILY 03/11 1000 AC 03/13 IV 0841 Morphine Sulfate 2 MG Q4P PRN 03/12 2330 AC IV Pantoprazole Sodium 40 MG BID 03/11 1403 AC 03/13 IV 0842 Phenytoin 100 MG BID 03/08 1000 AC 03/13 Sodium Chloride 50 ML IV 1106 Polyethylene Glycol 17 GM DAILY 03/09 1333 AC 03/11 PO 0844 Senna/Docusate Sodium 2 TAB DAILY PRN 03/09 1345 AC 03/11 PO 0830 Sodium Chloride 1,000 ML Q13H 03/10 1200 AC 03/13 IV 0640 Last 24 Hrs of Lab/Kurt Results Last 24 Hrs of Labs/Mics: Laboratory Tests 03/13/17 0700: Fluid WBC Cancelled, Fld Total RBCs Counted Cancelled 03/13/17 0700: Fluid Albumin Cancelled 03/13/17 0600: PT Cancelled, INR Cancelled 03/12/172231: Sodium Cancelled, Potassium Cancelled, Chloride Cancelled, Carbon Dioxide Cancelled, Anion Gap Cancelled, BUN Cancelled, Creatinine Cancelled, BUN/ Creatinine Ratio Cancelled, Cortisol AM Sample Cancelled 03/12/170: Lactic Acid 2.3 H 03/12/17 2230: Anion Gap 12, Estimated GFR 47 L, BUN/Creatinine Ratio 40.9 H, Cortisol PM Sample > 123.0 H, CBC w Diff MAN DIFF ORDERED, RBC 4.53, MCV 91.7, MCH 28.0, RDW 18.6 H, MPV 10.1, Gran % 88.6 H, Lymphocytes % 3.6 L, Monocytes % 7.8, Eosinophils % 0, Basophils % 0 L, Absolute Granulocytes 10.2 H, Segmented Neutrophils 85 H, Band Neutrophils 5, Absolute Lymphocytes 0.4 L, Lymphocytes 1 L, Monocytes 8, Absolute Monocytes 0.9 H, Absolute Eosinophils 0, Absolute Basophils 0, Metamyelocytes 1, Nucleated RBCs 1 H, Platelet Estimate DECREASED, Polychromasia 1+, Poikilocytosis 2+, Ovalocytes 1+, PUBS MCHC 30.5 L, Digoxin 1.4 03/12/170: pH 7.30 *L, pCO2 44, pO2 42 *L, HCO3 22, ABG O2 Sat (Measured) 71.0 L, P-50 ( Temp Corrected) N, Carboxyhemoglobin 1.1 L, O2 Concentration % 4L, Temperature 96.7 L, O2 Delivery Method NC, Phlebotomy Draw Site RIGHT BRACHIAL Microbiology 03/13 700 BODY FLUID: Body Fluid Culture - COLB 03/13 700 BODY FLUID: Gram Stain - COLB Assessment/Plan Assessment: 87 yo F with h/o paroxysmal Afib on coumadin, seizure, TIA, hypothyroidism, PE, recurrent UTI, recently admitted to [facility] (01/29 02/22) for Afib with RVR subsequently underwent PPM for SSS, conservatively managed for intestinal obstruction and profound hypothyroidism. PROBLEM LIST 1. AMS 2. Severe sepsis/septic shock. ? UTI vs infected stage III decuitus ulcer at coccyx. Family refused central line 3. Anasarca w/ evidence of bilateral pleural effusions secondary to acute on chronic diastolic heart failure. s/p right-sided thoracentesis yesterday and removal of 1.6 L transudative fluid. CXR this am showed left hemithorax has become completely opacified, consistent with a combination of left lung collapse and pleural effusion. ? MUCOUS PLUG 3. Marked hypothyroidism 4. Elevated troponins. ? demand ischemia 5. Malnutrition. on tube feeds 6. History of A. fib/PE on Coumadin 7. Stage III Decubitus pressure ulcer on coccyx PLAN * ICU monitoring * Continue all medications * Goals of care were further discussed with daughter and she wants everything for her including procedures except life-support and resuscitation. Her CODE STATUS was changed back to DNR/DNI * Patient is nothing by mouth right now waiting for ultrasound-guided left-sided thoracentesis by IR today * Chest PT with mucomyst TID per Pulm recs * We'll restart tube feeds after procedure * will keep patient in ICU overnight after procedure * Blood draw for labs today * Endo consult appreciated * ID consult * wound care * Continue GI and DVT prophylaxis * DNR/DNI Problem List: 1. Anasarca Pain Ratin Pain Location: unable to tell Pain Goal: Pain 4 or less Pain Plan: morphine Tomorrow's Labs & Rationales: cbc,icu,TFTs DVT/Prophylaxis: mechanical, pharmacological Consulting Request: Consulting Specialty: Infectious Disease REBECCA DINH,[facility] 03/13/17 1412: Objective Last 24 Hrs of Vital Signs/I&O Vital Signs Date Time Temp Pulse Resp B/P B/P Pulse O2 O2 Flow FiO2 Mean Ox Delivery Rate 03/13 1347 84 Non 100% ReBreather 03/13 800 88 Non 100% ReBreather 03/13 800 97.6 103 24 88/0 88 Non 100% ReBreather 03/13 0000 95.9 103 20 90/0 88 Venti Mask 100% 03/13 0000 88 Venti Mask 100% 03/12 2230 96.2 104 28 82/50 86 Nasal 4.0L Cannula 03/12 2200 102 80/54 03/12 2200 88 Nasal 4.0L Cannula 03/12 1842 98 Nasal 4.0L Cannula 03/12 1658 90/50 03/12 1600 Nasal 4.0L Cannula 03/12 1600 90 90/50 03/12 1553 80 03/12 1517 96.7 62 20 88/52 91 Nasal 4.0L Cannula Intake & Output 03/13 1600 03/13 0800 03/13 0000 Intake Total 554 340 Output Total 50 35 Balance 504 305 Intake, IV 554 300 Intake, Oral 0 Intake, Tube 40 Feeding Output, Urine 50 35 Attending MD Review Statement Attending Statement Attending MD Statement: examined this patient, discuss w/resident/PA/TEAM PSYCHOLOGIST, agreed w/resident/PA/TEAM PSYCHOLOGIST, discussed with family, reviewed EMR data (avail), discussed with nursing, discussed with case mgmt, reviewed images, amended to note Attending Assessment/Plan: Events data reveiwed Cxr reviewed Lung collapse from prob aspiration with mild to mod effusion ISsues as noted in the previous notes REC Cont max conservative care Start empiric abx for now with vanco and ceftaz sputum culture Check dig level mucomyst with chest pt to left lung and agg pulm toilet Pts prior wishes were not to go through intubation Hold tube feeding keep hob up high flow if pt can tolerate pt high risk for decomprensation with thora today will consider in am bennett culture cont iv levoxyl Check dig level and inr If hypotensive hold further lasix today unless cardio strongly feels that is indicated prog poor will follow LETA GAMBINO MD 03/13/17 1541: Attending MD Review Statement Attending Statement Attending MD Statement: examined this patient, discuss w/resident/PA/TEAM PSYCHOLOGIST, agreed w/resident/PA/TEAM PSYCHOLOGIST, discussed with family, reviewed EMR data (avail), discussed with case mgmt, reviewed images, amended to note Attending Assessment/Plan: Appreciate ICU/Elevator Inspector follow-up. Will resume Hospitalist care when out of ICU.
--- NOTE | 2017-03-13 09:51 | PN- Pulmonary ---
Subjective HPI/Critical Care Issues: Events and data reviewed Pt has had sig worsening of status lately lethargic and confused Hypotensive Objective Current Medications: Current Medications Sig/Liudmila Start time Last Medication Dose Route Stop Time Status Admin Acetaminophen 650 MG Q6P PRN 03/08 0115 AC PO Acetaminophen 1,000 MG Q6P PRN 03/08 0115 AC 03/08 IV 0918 Albuterol Sulfate 3 ML Q4P PRN 03/10 1145 AC INH Collagenase 1 ANUPAM DAILY 03/08 1400 AC 03/13 TOP 0842 Digoxin 0.125 MG DAILY@1400 03/10 1400 AC 03/12 PO 1553 Diltiazem HCl 30 MG TID 03/12 1600 AC PO Furosemide 40 MG 7:30 AM, & 4:30 PM 03/08 0730 AC 03/11 IV 1628 Glycerin 2 SPRAY Q2P PRN 03/09 1430 AC 03/10 PO 1037 Hydrocortisone 100 MG ONE ONE 03/12 2300 DC 03/12 Sodium Succinate IV 03/12 2301 2302 Levothyroxine Sodium 75 MCG DAILY 03/11 1000 AC 03/13 IV 0841 Morphine Sulfate 2 MG Q4P PRN 03/12 2330 AC IV Pantoprazole Sodium 40 MG BID 03/11 1403 AC 03/13 IV 0842 Phenytoin 100 MG BID 03/08 1000 AC 03/12 Sodium Chloride 50 ML IV 2159 Polyethylene Glycol 17 GM DAILY 03/09 1333 AC 03/11 PO 0844 Senna/Docusate Sodium 2 TAB DAILY PRN 03/09 1345 AC 03/11 PO 0830 Sodium Chloride 1,000 ML Q13H 03/10 1200 AC 03/13 IV 0640 Vital Signs & I&O Last 24 Hrs of Vitals and I&O: Vital Signs Date Time Temp Pulse Resp B/P B/P Pulse O2 O2 Flow FiO2 Mean Ox Delivery Rate 03/13 0000 95.9 103 20 90/0 88 Venti Mask 100% 03/13 0000 88 Venti Mask 100% 03/12 2230 96.2 104 28 82/50 86 Nasal 4.0L Cannula 03/12 2200 102 80/54 03/12 2200 88 Nasal 4.0L Cannula 03/12 1842 98 Nasal 4.0L Cannula 03/12 1658 90/50 03/12 1600 Nasal 4.0L Cannula 03/12 1600 90 90/50 03/12 1553 80 03/12 1517 96.7 62 20 88/52 91 Nasal 4.0L Cannula 03/12 1228 129 18 92/54 91 Nasal 4.0L Cannula Intake & Output 03/13 1600 03/13 0800 03/13 0000 Intake Total 554 340 Output Total 50 35 Balance 504 305 Intake, IV 554 300 Intake, Oral 0 Intake, Tube 40 Feeding Output, Urine 50 35 Impression/Plan Impression/Plan Impression/Plan: General Appearance more alert mild confusion Skin left arm weeping edema, decub noted HEENT PERRLA, EOMI Neck Supple Cardiovascular irregular rhythm Lungs no breath sounds on RLL, b/l crackles Abdomen edematous soft abdomen Neurological groaning HWANG, unresponsive to voice Extremities No Clubbing (anasarca) IMPRESSION This is an 87-year-old lady with previous history of [id number] smoking history, emphysema as noted in the CAT scan, 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 Her issues include * Recent deterioration with resp faiure and hypotension prob sepsis vs other causes. Family wished comfort like approach and pt has been managed conservatively * Bilateral pleural effusions with generalized anasarca most likely related to significant hypothyroidism, diastolic dysfunction with hypoalbuminemia. No clinical evidence suggestive of significant emphyema or any infection. S/p THora consistant with a transudative effusion. pt now hypotensive * Significant COPD with no active wheezing, no significant CO2 retention * Bilateral atelectasis related to large pleural effusions * Remote history of pulmonary embolism with no clinical evidence suggestive of active venous thromboembolism and patient is appropriately anticoagulated * Profound hypothyroidism most likely contributing to her anasarca and edema * Altered mental status with multiple issues including history of previous seizure, TIA, negative CT scan at this time * Supratherapeutic INR * Diastolic heart failure which appears to be acute on chronic * No clinical evidence suggestive of significant nephrotic syndrome * Decubiti ulcer related to multiple factors as noted above RECOMMENDATION Family wishes comfort care Discussed with the patients son at the bedside and he wishes conservative care only Plan * HOld tube feedings * dnr and dni and no other agg care and no escalation of care * Discuss with daughter when she arrives and confirm comfort care status and transfer to gen med * Cont iv levoxyl * cont oxygen * hol ng meds unless its needed * Prn morphine * DnR /DNI and no escalation of care * prog poor * pt is critically ill tts40 mins
--- NOTE | 2017-03-13 10:03 | RADIOLOGY REPORT ---
EXAMINATION: XR PORTABLE CHEST CLINICAL INFORMATION: Follow-up pleural effusions after thoracentesis COMPARISON: CXR from 03/11/2017 and 03/12/2017 TECHNIQUE: Portable frontal view of the chest was obtained. FINDINGS: Moderate right pleural effusion with opacification - likely compressive atelectasis - at the right base, similar compared to 03/12/2017 and decreased compared to 03/11/2017. Left hemithorax has become completely opacified. This likely represents a combination of the known left pleural effusion and lung collapse. Cardiomediastinal silhouette is shifted toward the left. The enteric tube extends below the diaphragm and into the stomach. The single lead cardiac pacemaker is in satisfactory position. No pneumothorax or other interval change. IMPRESSION: 1. Compared to 03/12/2017, the left hemithorax has become completely opacified, consistent with a combination of left lung collapse and pleural effusion. 2. The residual right pleural effusion and basilar opacity remain similar in appearance compared to 03/12/2017.
--- NOTE | 2017-03-13 13:55 | NUR ---
SHIFT NOTE: [id number] PATIENT ALERT, NON VERBAL, NOT TRACKING WITH EYES OR FOLLOWING COMMANDS, AFIB ON MONITOR. NPO, TUBE FEEDS ON HOLD FOR THORACENTESIS. 100% NON REBREATHER, SAT 85-88%, ATTEMPTED HIFLO, SAT DROPPED DOWN INTO 70'S. LUNGS DIMINISHED THROUGHOUT. NGT TO LEFT NARE. BOLTON IN PLACE, SCANT IVANA URINE. BLE EDEMA RLE +3 LLE +4. SKIN TEARS X2 TO LEFT ARM, XEROFORM, TELFA AND KURLEX PLACED. DARNELL SKIN TEAR DRAINING SERROUS FLUID. COCCYX WOUND STAGE 3, SANTYL APPLIED, TURNED AND REPOSITIONED. IVF INFUSING, NEW IV AND LABS DRAWN BY FLANGING ROLL OPERATORJENNY NUNEZ. WILL MONITOR.
--- NOTE | 2017-03-13 14:04 | PN- Cardiology ---
Subjective Subjective: Events leading to transfer into ICU reviewed. CXR reveals evidence of left lung collapse/pleural effusion. Improved ventricular response to her atrial fibrillation. Objective Vital Signs and I&Os Vital Signs Date Time Temp Pulse Resp B/P B/P Pulse O2 O2 Flow FiO2 Mean Ox Delivery Rate 03/13 1347 84 Non 100% ReBreather 03/13 800 88 Non 100% ReBreather 03/13 800 97.6 103 24 88/0 88 Non 100% ReBreather 03/13 0000 95.9 103 20 90/0 88 Venti Mask 100% 03/13 0000 88 Venti Mask 100% 03/12 2230 96.2 104 28 82/50 86 Nasal 4.0L Cannula 03/12 220 102 80/54 03/12 2200 88 Nasal 4.0L Cannula 03/12 1842 98 Nasal 4.0L Cannula 03/12 1658 90/50 03/12 1600 Nasal 4.0L Cannula 03/12 1600 90 /50 03/12 1553 80 03/12 1517 96.7 62 20 88/52 91 Nasal 4.0L Cannula Intake & Output 03/13 1600 03/13 0803/13 0000 03/12 1600 03/12 0800 03/12 0000 Intake Total 554 340 600 Output Total 50 35 200 100 350 Balance 504 305 400 -100 -350 Intake, IV 554 300 600 Intake, Oral 0 Intake, Tube 40 Feeding Output, Urine 50 35 200 100 350 Physical Exam: Chronically ill-appearing elderly female who is unable to answer questions with O2 mask in place. Vital signs: See above. Lungs: Decreased breath sounds bilaterally. Heart: S1, S2 with grade 1/6 systolic murmur. Extremities: Positive edema. Current Medications: Current Medications Sig/Liudmila Start time Last Medication Dose Route Stop Time Status Admin Acetaminophen 650 MG Q6P PRN 03/08 0115 AC PO Acetaminophen 1,000 MG Q6P PRN 03/08 0115 AC 03/08 IV 0918 Acetylcysteine 2 ML BID 03/13 2200 UNVr INH Acetylcysteine 2 ML TID 03/13 1244 DC INH Albuterol Sulfate 3 ML Q4P PRN 03/10 1145 AC INH Collagenase 1 ANUPAM DAILY 03/08 1400 AC 03/13 TOP 0842 Digoxin 0.125 MG DAILY@1400 03/10 1400 AC 03/12 PO 1553 Diltiazem HCl 30 MG TID 03/12 1600 AC PO Furosemide 40 MG 7:30 AM, & 4:30 PM 03/08 0730 AC 03/11 IV 1628 Glycerin 2 SPRAY Q2P PRN 03/09 1430 AC 03/10 PO 1037 Hydrocortisone 100 MG ONE ONE 03/12 2300 DC 03/12 Sodium Succinate IV 03/12 2301 2302 Levothyroxine Sodium 75 MCG DAILY 03/11 1000 AC 03/13 IV 0841 Morphine Sulfate 2 MG Q4P PRN 03/12 2330 AC IV Pantoprazole Sodium 40 MG BID 03/11 1403 AC 03/13 IV 0842 Phenytoin 100 MG BID 03/08 1000 AC 03/13 Sodium Chloride 50 ML IV 1106 Polyethylene Glycol 17 GM DAILY 03/09 1333 AC 03/11 PO 0844 Senna/Docusate Sodium 2 TAB DAILY PRN 03/09 1345 AC 03/11 PO 0830 Sodium Chloride 1,000 ML Q13H 03/10 1200 AC 03/13 IV 0640 Results Last 48 Hrs of Labs/Mics: Laboratory Tests 03/13/17 1349: Lactic Acid Pending 03/13/17 1349: Sodium Pending, Potassium Pending, Chloride Pending, Carbon Dioxide Pending, Anion Gap Pending, BUN Pending, Creatinine Pending, BUN/Creatinine Ratio Pending , PT Pending, INR Pending, CBC w Diff Pending, WBC Pending, RBC Pending, Hgb Pending, Hct Pending, MCV Pending, MCH Pending, RDW Pending, Plt Count Pending, MPV Pending, PUBS MCHC Pending 03/13/17 0700: Fluid WBC Cancelled, Fld Total RBCs Counted Cancelled 03/13/17 0700: Fluid Albumin Cancelled 03/13/17 0600: PT Cancelled, INR Cancelled 03/12/17 2232: Sodium Cancelled, Potassium Cancelled, Chloride Cancelled, Carbon Dioxide Cancelled, Anion Gap Cancelled, BUN Cancelled, Creatinine Cancelled, BUN/ Creatinine Ratio Cancelled, Cortisol AM Sample Cancelled 03/12/170: Lactic Acid 2.3 H 03/12/17 2230: Anion Gap 12, Estimated GFR 47 L, BUN/Creatinine Ratio 40.9 H, Cortisol PM Sample > 123.0 H, CBC w Diff MAN DIFF ORDERED, RBC 4.53, MCV 91.7, MCH 28.0, RDW 18.6 H, MPV 10.1, Gran % 88.6 H, Lymphocytes % 3.6 L, Monocytes % 7.8, Eosinophils % 0, Basophils % 0 L, Absolute Granulocytes 10.2 H, Segmented Neutrophils 85 H, Band Neutrophils 5, Absolute Lymphocytes 0.4 L, Lymphocytes 1 L, Monocytes 8, Absolute Monocytes 0.9 H, Absolute Eosinophils 0, Absolute Basophils 0, Metamyelocytes 1, Nucleated RBCs 1 H, Platelet Estimate DECREASED, Polychromasia 1+, Poikilocytosis 2+, Ovalocytes 1+, PUBS MCHC 30.5 L, Digoxin 1.4 03/12/17 2220: pH 7.30 *L, pCO2 44, pO2 42 *L, HCO3 22, ABG O2 Sat (Measured) 71.0 L, P-50 ( Temp Corrected) N, Carboxyhemoglobin 1.1 L, O2 Concentration % 4L, Temperature 96.7 L, O2 Delivery Method NC, Phlebotomy Draw Site RIGHT BRACHIAL 03/12/17 1100: Pleural pH 7.33 03/12/17 1100: Fluid WBC 306 H, Fld Mesothelial Cells , Fld Total RBCs Counted 49 H 03/12/17 1100: Lymphocytes 16, % Normal PMNs 2, Fluid Glucose 65, Fluid Total Protein < 2.0, Fluid Albumin < 1.0, Fluid LDH 248 03/12/17 0600: PT Cancelled, INR Cancelled 03/12/17 0145: CBC w Diff NO MAN DIFF REQ, RBC 4.70, MCV 90.6, MCH 28.2, RDW 18.6 H, MPV 10.2, Gran % 83.9 H, Lymphocytes % 5.9 L, Monocytes % 10.2 H, Eosinophils % 0, Basophils % 0 L, Absolute Granulocytes 6.5, Absolute Lymphocytes 0.5 L, Absolute Monocytes 0.8 H, Absolute Eosinophils 0, Absolute Basophils 0, PUBS MCHC 31.1 L 03/11/17 1530: Troponin I 0.10, APTT 45 H, CBC w Diff NO MAN DIFF REQ, RBC 4.43, MCV 90.6, MCH 28.0, RDW 19.6 H, MPV 9.3, Gran % 84.4 H, Lymphocytes % 5.8 L, Monocytes % 9.7 H, Eosinophils % 0.1, Basophils % 0 L, Absolute Granulocytes 4.7, Absolute Lymphocytes 0.3 L, Absolute Monocytes 0.5, Absolute Eosinophils 0, Absolute Basophils 0, PUBS MCHC 30.9 L Recent Imaging Studies: CXR (03/13/2017): 1. Compared to 03/12/2017, the left hemithorax has become completely opacified, consistent with a combination of left lung collapse and pleural effusion. 2. The residual right pleural effusion and basilar opacity remain similar in appearance compared to 03/12/2017. Assessment/Plan Assessment/Plan [id number] w/ a hx of tobacco use, COPD, hypothyroidism, HLD, Sz disorder, possible TIA, pul embolism w/ warfarin anticoagulation and remote brief bouts of AF who was recently hospitalized here twice and who returns from her [facility] facility w/ AMS/hypoxemia and who was found to have anasarca w/ evidence of bilateral pleural effusions secondary to acute on chronic diastolic heart failure and marked hypothyroidism despite replacement. Condition deteriorated over the past 24 hours with new evidence of left lung white out felt to be due to a combination of lung collapse/pleural effusion and worsening hypotension. Recommendations: * Hold IV furosemide and diltiazem given hypotension. * Hold digoxin until labs reviewed and repeat level obtained at least 6 hours ( ideally 12 hours) after the last dosage was given. * Continue DVT prophylaxis. * Discussed worsening status with family member (daughter). Continue telemetry? Not applicable (in ICU.)
[2017-03-13 14:15] LABS: ABSOLUTE BASOPHIL COUNT 0 /CUMM (0.0-0.2); ABSOLUTE EOSINOPHIL COUNT 0 /CUMM (0.0-0.7); ABSOLUTE GRANULOCYTE CT 10.6 /CUMM (1.4-6.5); ABSOLUTE LYMPH COUNT 0.4 /CUMM (1.2-3.4); ABSOLUTE MONOCYTE COUNT 0.8 /CUMM (0.10-0.60); BASOPHIL % 0 % (0.0-2.0); EOSINOPHIL % 0 % (0-5); HEMATOCRIT 43.2 % (37-47); MEAN CORPUSCULAR HGB CONC 30.3 G/DL (33.0-37.0); MEAN CORPUSCULAR VOLUME 92.2 FL (81.0-99.0); MEAN PLATELET VOLUME 9.9 FL (7.4-10.4); PLATELET COUNT 127 /CUMM (130-400); RED BLOOD CELL CT 4.69 /CUMM (4.20-5.40); WHITE BLOOD CELL COUNT 11.8 /CUMM (4.8-10.8)
[2017-03-13 14:26] LABS: PT 29.2 SEC (9.4-12.5)
--- NOTE | 2017-03-13 14:37 | Cons- Infect Disease ---
General Information and HPI Consulting Request Date of Consult: 03/13/17 Requested By: LETA GAMBINO MD Reason for Consult: Rule out sepsis Source of Information: family, old records Exam Limitations: clinical condition History of Present Illness: This is an 87-year-old woman with a history of atrial fibrillation, maintained on Coumadin, pulmonary embolism, COPD, hypothyroidism, seizure disorder, hospitalized 6 weeks prior to admission with weakness, found to be in rapid atrial fibrillation, with hospital course notable for sick sinus syndrome/ tachybradycardia syndrome, for which a pacemaker was placed, small bowel obstruction, managed conservatively with an NG tube, and 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 On admission she was afebrile. Laboratory data revealed a white blood cell count of 7000, BUN/creatinine 40 and 0.8, alkaline phosphatase 197, AST/ALT 43 and 40, TSH 21.2, proBNP 3630, INR 4.26, ABG 7.41/39/68 on 3 L. Urinalysis rare RBC/5-[address] of the chest revealed moderate bilateral pleural effusions with complete collapse of the right lower lobe and the majority of the left lower lobe basilar segments. CT of the head was negative for any acute process. She was given Vancomycin and Ceftazidime initially but was then followed off antibiotics. Her anticoagulation was held in anticipation of a thoracentesis, and on March 12 she underwent a right thoracentesis with removal of 1.6 L of clear yellow fluid. Later in the evening she developed respiratory distress and was transferred to the ICU, with an ABG of 7.3/44/42. She was given 1 dose of Hydrocortisone. She has been afebrile since admission. Her blood pressure has been borderline since admission. Her white blood cell count has been normal until last evening when it increased to 11.5. She is unable to provide any history at this time secondary to her condition. Allergies/Medications Allergies: Coded Allergies: clarithromycin (N/V PER PT DAUGHTER 01/25/17) nitrofurantoin (N/V 01/25/17) Home Med List: Acetaminophen 325 MG CAPSULE 1 CAP PO PRN PAIN (Reported) Diltiazem HCl (Cardizem Cd) 120 MG CAP.ER.24H 360 MG PO DAILY HEART HEALTH Furosemide (Lasix) 20 MG TABLET 1 TAB PO DAILY leg swelling hold for SBP<90 Melatonin 3 MG TABLET 1 TAB PO QHS SLEEP (Reported) Phenytoin (Dilantin) 100 MG CAPSULE 2 CAP PO BID SEIZURES (Reported) Simvastatin (Simvastatin*) 20 MG TABLET 1 TAB PO QPM PREVENTATIVE (Reported) Thyroid,Pork ([place] Thyroid) 240 MG TABLET 120 MG PO DAILY THYROID (Reported ) Warfarin Sodium (Coumadin) 2.5 MG TABLET 1 TAB PO 1700 BLOOD THINNER ( Reported) Past History Travel History Traveled to [place] past 21 day No Medical History Neurological: SEIZURE 2008 EENT: hearing loss Cardiovascular: AFIB, PUL EMB Respiratory: pulmonary embolism Gastrointestinal: NONE Hepatic: NONE Renal: UTI Musculoskeletal: osteoarthritis, LOWER EXTREMITY EDEMA L1 compression fracture Psychiatric: NONE Endocrine: hypothyroidism Blood Disorders: DVT 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 Needs Assist: bathing. Ambulation: after fall patient has been largely non ambulatory. IADLs Independent: medication admin. Needs Assist: housework, food prep, transportation. Unknown: shopping, finances, telephone. Review of Systems Comments Unobtainable Exam & Diagnostic Data Last 24 Hrs of Vital Signs/I&O Vital Signs Date Time Temp Pulse Resp B/P B/P Pulse O2 O2 Flow FiO2 Mean Ox Delivery Rate 03/13 1347 84 Non 100% ReBreather 03/13 0800 88 Non 100% ReBreather 03/13 0800 97.6 103 24 88/0 88 Non 100% ReBreather 03/13 0000 95.9 103 20 90/0 88 Venti Mask 100% 03/13 0000 88 Venti Mask 100% 03/120 96.2 104 28 82/50 86 Nasal 4.0L Cannula 03/12 2200 102 80/54 03/12 2200 88 Nasal 4.0L Cannula 03/12 1842 98 Nasal 4.0L Cannula 03/12 1658 90/50 03/12 1600 Nasal 4.0L Cannula 03/12 1600 90 90/50 03/12 1553 80 03/12 1517 96.7 62 20 88/52 91 Nasal 4.0L Cannula Intake & Output 03/13 1600 03/13 0800 03/13 0000 Intake Total 554 340 Output Total 50 35 Balance 504 305 Intake, IV 554 300 Intake, Oral 0 Intake, Tube 40 Feeding Output, Urine 50 35 Physical Exam Other Physical Findings: She is awake but lethargic, not clearly responsive, on a 100% Ventimask. She is afebrile. Skin reveals scattered ecchymoses and skin tears. HEENT exam is negative. Neck is supple with no adenopathy. Chest pacemaker in the left upper chest with no inflammation at the site. Lungs decreased breath sounds on the left. Heart regular rhythm with a 1/6 systolic ejection murmur. Abdomen is soft, nontender with positive bowel sounds. Back presacral edema; stage III sacral decubitus with no surrounding erythema; no obvious CVA tenderness. Extremities 2+ edema both lower extremities. Neuro is without focality. Warner catheter is in place. Last 24 Hours of Lab Results: Laboratory Tests 03/13 03/13 03/13 03/13 03/13 1349 1349 0700 0700 0600 Chemistry Sodium Pending Potassium Pending Chloride Pending Carbon Dioxide Pending Anion Gap Pending BUN Pending Creatinine Pending BUN/Creatinine Ratio Pending Lactic Acid Pending Coagulation PT Pending Cancelled INR Pending Cancelled Hematology CBC w Diff Pending WBC Pending RBC Pending Hgb Pending Hct Pending MCV Pending MCH Pending RDW Pending Plt Count Pending MPV Pending Gran % Pending Lymphocytes % Pending Monocytes % Pending Eosinophils % Pending Basophils % Pending Absolute Granulocytes Pending Absolute Lymphocytes Pending Absolute Monocytes Pending Absolute Eosinophils Pending Absolute Basophils Pending PUBS MCHC Pending Other Body Source Fluid WBC Cancelled Fld Total RBCs Counted Cancelled Fluid Albumin Cancelled 03/12 03/12 03/12 2232 2230 2230 Chemistry Sodium (137 - 145 mmol/L) Cancelled 145 Potassium (3.5 - 5.1 mmol/L) Cancelled 4.0 Chloride (98 - 107 mmol/L) Cancelled 110 H Carbon Dioxide (22 - 30 mmol/L) Cancelled 23 Anion Gap (5 - 16) Cancelled 12 BUN (7 - 17 mg/dL) Cancelled 45 H Creatinine (0.5 - 1.0 mg/dL) Cancelled 1.1 H Estimated GFR (>60 ml/min) 47 L BUN/Creatinine Ratio (7 - 25 %) Cancelled 40.9 H Lactic Acid (0.7 - 2.1 mmol/L) 2.3 H Cortisol AM Sample Cancelled Cortisol PM Sample (1.7 - 14.1) > 123.0 H Hematology CBC w Diff MAN DIFF ORDERED WBC (4.8 - 10.8 /CUMM) 11.5 H RBC (4.20 - 5.40 /CUMM) 4.53 Hgb (12.0 - 16.0 G/DL) 12.7 Hct (37 - 47 %) 41.5 MCV (81.0 - 99.0 FL) 91.7 MCH (27.0 - 31.0 PG) 28.0 RDW (11.5 - 14.5 %) 18.6 H Plt Count (130 - 400 /CUMM) 133 MPV (7.4 - 10.4 FL) 10.1 Gran % (42.2 - 75.2 %) 88.6 H Lymphocytes % (20.5 - 51.1 %) 3.6 L Monocytes % (1.7 - 9.3 %) 7.8 Eosinophils % (0 - 5 %) 0 Basophils % (0.0 - 2.0 %) 0 L Absolute Granulocytes (1.4 - 6.5 /CUMM) 10.2 H Segmented Neutrophils (42.2 - 75.2 %) 85 H Band Neutrophils (0.0 - 5.0 %) 5 Absolute Lymphocytes (1.2 - 3.4 /CUMM) 0.4 L Lymphocytes (20.5 - 51.1 %) 1 L Monocytes (1.7 - 9.3 %) 8 Absolute Monocytes (0.10 - 0.60 /CUMM) 0.9 H Absolute Eosinophils (0.0 - 0.7 /CUMM) 0 Absolute Basophils (0.0 - 0.2 /CUMM) 0 Metamyelocytes (0.0 - 1.0 %) 1 Nucleated RBCs (0.0 - 0.0 /100WBC) 1 H Platelet Estimate (ADEQUATE) DECREASED Polychromasia 1+ Poikilocytosis 2+ Ovalocytes 1+ PUBS MCHC (33.0 - 37.0 G/DL) 30.5 L Toxicology Digoxin (0.8 - 2.0 ng/mL) 1.4 03/12 2220 Blood Gas pH (7.35 - 7.45 PH) 7.30 *L pCO2 (35 - 45 TORR) 44 pO2 (80 - 100 TORR) 42 *L HCO3 (21 - 28 MEQ/L) 22 ABG O2 Sat (Measured) (>96.0 %) 71.0 L P-50 (Temp Corrected) N Carboxyhemoglobin (1.5 - 5.0 %) 1.1 L O2 Concentration % 4L Temperature (97.0 - 100.0 FARH) 96.7 L O2 Delivery Method NC Miscellaneous Phlebotomy Draw Site RIGHT BRACHIAL Last 24 Hours of Kurt Results: Right pleural fluid culture March 12 negative Urine culture March 07 approximately 40,000 colonies of Enterococcus sensitive to Ampicillin and 80,000 colonies of Lactobacillus Diagnostic Data Recent Imaging Findings: Chest x-ray March 13, personally reviewed, reveals complete opacification of the left hemithorax and a moderate right pleural effusion with basilar opacity CT of the chest March 07 revealed moderate bilateral pleural effusions with complete collapse of the right lower lobe and the majority of the left lower lobe basilar segments. CT of the head March 08 negative for any acute process. Assessment/Plan Assessment/Plan Impression: This is an 87-year-old woman with a history of atrial fibrillation, maintained on Coumadin, COPD and hypothyroidism recently hospitalized, at which time she was found to have tachybradycardia syndrome, for which a pacemaker was placed, admitted on March 07 with increased respiratory distress and altered mental status , found to be afebrile with a normal white blood cell count, status post right thoracentesis yesterday of a transudate pleural effusion, with the development of acute respiratory failure requiring transfer to the ICU, with chest x-ray revealing complete opacification of the left hemithorax. The opacification is felt to be secondary to combination of left lung collapse and pleural fluid. It is difficult to rule out a component of infection, though she has remained afebrile and the presentation is not suggestive of this. Nevertheless, given her poor condition, it may be prudent to cover her empirically for possible aspiration pneumonia. It is unlikely that a sputum culture can be obtained and it may be difficult to draw blood cultures; therefore treatment may need to remain empiric. Her prognosis is quite poor and further efforts to change her overall level of care would be appropriate. Suggestion: 1. Would continue efforts to change her overall level of care to comfort measures 2. Attempt to obtain sputum culture 3. Attempt to obtain blood cultures 2 4. Urine culture 5. Can begin Vancomycin 1 g IV every 24 hours and Ceftazidime 1 g IV every 12 hours pending above Consult Acknowledgment - Thank you for your consult request.
--- NOTE | 2017-03-13 14:40 | PN- Endocrinology ---
Assessment/Plan Assessment: 87 yo female with PMH of COPD, hypothyroidism, hyperlipidemia, seizure disorder, possible TIA, pulmonary emoblus, and frequent UTI, who was admitted to after she had a mechanical fall on 02/14/2017. Patient was readmitted last night for altered mental status, significant sweling and dyspnea. Blood work showed TSH 21.2, free T 4 0.73 and TT3 1.02. [facility], she was on [place] thyroid 120 mg daily. On 03/08/2017, she was put on Levothyroxine 100 mcg iv daily. Patient was found to be in atrila fibrillation. Repeat free T4 was up to 1.01. Levothyroxine was decreased to 75 mcg iv daily. Her Troponin was mildly elevated She was put on heparin drip. Patient was transfered to ICU for respiratory failure. Plan: continue Levothyroxine 75 mcg iv daily; monitor free T4 andb TSH (add-on to the lab from today). will follow. Subjective Subjective: She has difficulty breathing. Objective Last 24 Hrs of Vital Signs/I&O Vital Signs Date Time Temp Pulse Resp B/P B/P Pulse O2 O2 Flow FiO2 Mean Ox Delivery Rate 03/13 1347 84 Non 100% ReBreather 03/13 08 88 Non 100% ReBreather 03/13 08 97.6 103 24 88/0 88 Non 100% ReBreather 03/13 0000 95.9 103 20 90/0 88 Venti Mask 100% 03/13 0000 88 Venti Mask 100% 03/12 2230 96.2 104 28 82/50 86 Nasal 4.0L Cannula 03/12 2200 102 80/54 03/12 2200 88 Nasal 4.0L Cannula 03/12 1842 98 Nasal 4.0L Cannula 03/12 1658 9050 03/12 1600 Nasal 4.0L Cannula 03/12 1600 90 50 03/12 1553 80 03/12 1517 96.7 62 20 88/52 91 Nasal 4.0L Cannula Intake & Output 03/13 1600 03/13 0803/13 0000 Intake Total 554 340 Output Total 50 35 Balance 504 305 Intake, IV 554 300 Intake, Oral 0 Intake, Tube 40 Feeding Output, Urine 50 35 Results Pertinent Lab/Kurt Results: Laboratory Tests 03/13 03/13 03/13 03/13 03/13 1349 1349 0700 0700 0600 Chemistry Sodium (137 - 145 mmol/L) 145 Potassium (3.5 - 5.1 mmol/L) 4.3 Chloride (98 - 107 mmol/L) 112 H Carbon Dioxide (22 - 30 mmol/L) 20 L Anion Gap (5 - 16) 13 BUN (7 - 17 mg/dL) 51 H Creatinine (0.5 - 1.0 mg/dL) 1.2 H Estimated GFR (>60 ml/min) 43 L BUN/Creatinine Ratio (7 - 25 %) 42.5 H Lactic Acid (0.7 - 2.1 mmol/L) 2.0 Coagulation PT (9.4 - 12.5 SEC) 29.2 H Cancelled INR (0.90 - 1.19) 2.81 H Cancelled Hematology CBC w Diff Pending WBC Pending RBC Pending Hgb Pending Hct Pending MCV Pending MCH Pending RDW Pending Plt Count Pending MPV Pending Gran % Pending Lymphocytes % Pending Monocytes % Pending Eosinophils % Pending Basophils % Pending Absolute Granulocytes Pending Absolute Lymphocytes Pending Absolute Monocytes Pending Absolute Eosinophils Pending Absolute Basophils Pending PUBS MCHC Pending Other Body Source Fluid WBC Cancelled Fld Total RBCs Counted Cancelled Fluid Albumin Cancelled 03/12 03/12 03/12 2232 2230 2230 Chemistry Sodium (137 - 145 mmol/L) Cancelled 145 Potassium (3.5 - 5.1 mmol/L) Cancelled 4.0 Chloride (98 - 107 mmol/L) Cancelled 110 H Carbon Dioxide (22 - 30 mmol/L) Cancelled 23 Anion Gap (5 - 16) Cancelled 12 BUN (7 - 17 mg/dL) Cancelled 45 H Creatinine (0.5 - 1.0 mg/dL) Cancelled 1.1 H Estimated GFR (>60 ml/min) 47 L BUN/Creatinine Ratio (7 - 25 %) Cancelled 40.9 H Lactic Acid (0.7 - 2.1 mmol/L) 2.3 H Cortisol AM Sample Cancelled Cortisol PM Sample (1.7 - 14.1) > 123.0 H Hematology CBC w Diff MAN DIFF ORDERED WBC (4.8 - 10.8 /CUMM) 11.5 H RBC (4.20 - 5.40 /CUMM) 4.53 Hgb (12.0 - 16.0 G/DL) 12.7 Hct (37 - 47 %) 41.5 MCV (81.0 - 99.0 FL) 91.7 MCH (27.0 - 31.0 PG) 28.0 RDW (11.5 - 14.5 %) 18.6 H Plt Count (130 - 400 /CUMM) 133 MPV (7.4 - 10.4 FL) 10.1 Gran % (42.2 - 75.2 %) 88.6 H Lymphocytes % (20.5 - 51.1 %) 3.6 L Monocytes % (1.7 - 9.3 %) 7.8 Eosinophils % (0 - 5 %) 0 Basophils % (0.0 - 2.0 %) 0 L Absolute Granulocytes (1.4 - 6.5 /CUMM) 10.2 H Segmented Neutrophils (42.2 - 75.2 %) 85 H Band Neutrophils (0.0 - 5.0 %) 5 Absolute Lymphocytes (1.2 - 3.4 /CUMM) 0.4 L Lymphocytes (20.5 - 51.1 %) 1 L Monocytes (1.7 - 9.3 %) 8 Absolute Monocytes (0.10 - 0.60 /CUMM) 0.9 H Absolute Eosinophils (0.0 - 0.7 /CUMM) 0 Absolute Basophils (0.0 - 0.2 /CUMM) 0 Metamyelocytes (0.0 - 1.0 %) 1 Nucleated RBCs (0.0 - 0.0 /100WBC) 1 H Platelet Estimate (ADEQUATE) DECREASED Polychromasia 1+ Poikilocytosis 2+ Ovalocytes 1+ PUBS MCHC (33.0 - 37.0 G/DL) 30.5 L Toxicology Digoxin (0.8 - 2.0 ng/mL) 1.4 07/10 2220 Blood Gas pH (7.35 - 7.45 PH) 7.30 *L pCO2 (35 - 45 TORR) 44 pO2 (80 - 100 TORR) 42 *L HCO3 (21 - 28 MEQ/L) 22 ABG O2 Sat (Measured) (>96.0 %) 71.0 L P-50 (Temp Corrected) N Carboxyhemoglobin (1.5 - 5.0 %) 1.1 L O2 Concentration % 4L Temperature (97.0 - 100.0 FARH) 96.7 L O2 Delivery Method NC Miscellaneous Phlebotomy Draw Site RIGHT BRACHIAL
[2017-03-13 14:59] LABS: GRANULOCYTE % 89.9 % (42.2-75.2)
--- NOTE | 2017-03-13 15:11 | NUR ---
THORACENTESIS ON HOLD UNTIL TOMORROW DUE TO HIGH INR. DAUGHTER MADE AWARE. MD AT BEDSIDE TO DISCUSS POC. PERCUSSION BED BEING CLEANED AT THIS TIME WILL PLACE PATIENT ON IT ONCE AVAILABLE. BLOOD CULTURES TO BE ATTEMPTED. PATIENT IS DIFFICULT STICK. WILL MONITOR.
[2017-03-13 16:00] VITALS: BP 80/0
--- NOTE | 2017-03-13 16:18 | NUR ---
INFORMED BY CHAPIN BEE PATIENT'S B/P 72 MANUALLY, VERIFIED WITH DOPPLER. MD Natividad MCDONOUGH MADE AWARE, DAUGHTER AT BEDSIDE TO DETERMINE POC. NO URINE OUTPUT FOR SHIFT. AWAITING URINE FOR URINE CULTURE. DR FERNANDEZ TO COME SEE PATIENT AND DAUGHTER TO DISCUSS NEED FOR CENTRAL LINE AND PRESSORS. REPORT GIVEN TO JENNY BYERS.
--- NOTE | 2017-03-13 17:00 | NUR ---
Patient is lethargic and non verbal- only minimally responsive to tactile stimuli. Does not follow commands. Pupils are 3mm and reactive. A-fib on the tele monitor, HR= 90-120's- LCW pacer in place- no pacer spikes are noted. SBP noted to be 80/0 at 1600- NS bolus infusing at this time. House staff at the bedside and discussing plan of care with pts daughter who is stating that she would like all procedures done but code status to remain DNR/DNI. Levophed was started peripherally at 1610 and house staff obtained consent from daughter for TLC placement. Pulses + with doppler. Po cardizem and IV lasix held at this time per Dr. oneal's recommendations per report. Currently on a 100% non re-breather. O2 sats 80%- Lungs very diminished. Patient's breathing appears labored and agonal at times. Dr. Man has been called by house staff to address goals of care with family. NGT in place and clamped. Tube feeds have been d/c. Last BM 03/09/17. Hypoactive bowel sounds noted. Warner in place draining scant amounts of clodu yasir colored urine. Unable to obtain UC at this time. A unstageable pressure injury is noted to the coccyx and Santyl has been applied. DARNELL skin tears which are weeping serous colored fluid. +3-4 generalized edema is noted. No s/s of pain are currently noted. BC have been ordered and will be drawn peripherally once house staff places TLC. Will continue to closely monitor patient.
--- NOTE | 2017-03-13 19:15 | Event Note ---
Event Note Event Note: Called to the bedside. Patients BP 80s over doppler. Peripheral pressors - norepi started. A time-out was completed verifying correct patient, procedure, site, positioning, and equipment. The patient was placed in a dependent position appropriate for central line placement. The patients R groin was prepped and draped in sterile fashion. Approximately 10 cc of 1% Lidocaine was used to anesthetize the surrounding skin area. A triple lumen 7-[place] Arrow catheter was introduced into the the left femoral vein after dark, non pulsatile blood was aspirated under ultrasound guidance. The catheter was threaded with moderate difficulty over the guide wire and appropriate blood return was obtained. Each lumen of the catheter was evacuated of air and flushed with sterile saline prior to insertion. The catheter was then sutured in place to the skin with a biopatch and sterile dressing applied. Placement was confirmed with a blood gas. The patient tolerated the procedure well with no complications. Estimated Blood Loss: <10 mL. Prior and throughout the insertion of the femoral line, the patient's saturation was in the high 70s and low 80s. She was on 100% oxygen via nonrebreather. Physical exam did reveal bilateral wheezes with rales in her right lung with minimal air entry in her left lung. As she was placed on pressors, the decision to give 60 mg of IV Lasix to diurese her given her pleural effusion, with plans to go up on her pressor requirement if need be. Of note, she was given 100 mg of hydrocortisone yesterday which was continued every 8 hours. Given her wheezes, a nebulizer treatment was also given. Our plan is to continue pressors and advance to vasopressin if needed, however if she continues to desaturate, the plan is to not advance care any further as the patient is DNR/DNI. The plan was discussed with the patient's son as her daughter had already left, as well as Dr. Man over the phone. The patient's son stated he would contact the daughter, and the critical condition of the patient, and likelihood of significant desaturation and possibly was stressed multiple times.
--- NOTE | 2017-03-13 19:30 | NUR ---
A right groin TLC was placed by house staff at the bedside. Patient tolerated procedure well and a mixed venous gas was done to confirm placement. Levophed gtt was increased to a max dose of 20mcg/min when a BP of 56/0 with doppler and 42/34 by autocuff was noted at 1800. See flow sheet for vitals At this time. Patient remains lethargic and minimally responsive. Will move upper extremities spontaneously but not to command. She does not track and remains non-verbal. Afib on tele monitor HR= 100-120's. SBP: 90-100's and levo gtt continues to infuse at 20mcg/min. 60mg IV lasix given per order. DOppler Bp's correlating to autocuff. 100% non rebreather with O2 sats 75-79%. Lungs remain diminished. Breathing is labored. She was placed on an ICU bed with percussion. NGT in place and remains clamped. Warner in place with scant urine output. Dressing to coccyx changed at this time. DARNELL remains weeping serous fluid. +3-4 edema is noted. R. groin TLC in place and dressing has been reinforced. Blood cultures drawn peripehrally per order and IB abx given. Dr. Man to be in tomorrow to discuss goals of care with pts family. She is to remain in ICU as a DNR/DNI at this time. Report given to oncoming RN. Will continue to closely monitor patient.
--- NOTE | 2017-03-13 21:00 | NUR ---
PATIENT PLACED ON PERCUSSION BED. MONITOR AFIB AT RATE OF 116. MANUAL BP=98/DOP WITH LEVPHED DRIP AT 20 MCG/MIN.O2 ON VIA VENTIMASK AT 100% WITH O2 SAT OF 80%. LUNG SOUNDS DIMINISHED. PT MINIMALLY RESPONSIVE.REACTED TO MOVEMENT OVER TO NEW BED.MOVES R ARM SPONTANEOUSLY.MINIMAL URINE OUTPUT.
[2017-03-14] VITALS: BP 94/40
[2017-03-14 04:38] LABS: ABSOLUTE BASOPHIL COUNT 0 /CUMM (0.0-0.2); ABSOLUTE EOSINOPHIL COUNT 0 /CUMM (0.0-0.7); ABSOLUTE GRANULOCYTE CT 16.3 /CUMM (1.4-6.5); ABSOLUTE LYMPH COUNT 0.3 /CUMM (1.2-3.4); BASOPHIL % 0 % (0.0-2.0); EOSINOPHIL % 0 % (0-5); GRANULOCYTE % 92.6 % (42.2-75.2); HEMATOCRIT 44.9 % (37-47); MEAN CORPUSCULAR HGB 28.2 PG (27.0-31.0); MEAN CORPUSCULAR HGB CONC 30.2 G/DL (33.0-37.0); MEAN CORPUSCULAR VOLUME 93.4 FL (81.0-99.0); MEAN PLATELET VOLUME 10.1 FL (7.4-10.4); PLATELET COUNT 133 /CUMM (130-400); WHITE BLOOD CELL COUNT 17.6 /CUMM (4.8-10.8)
[2017-03-14 04:42] LABS: RED BLOOD CELL CT 4.81 /CUMM (4.20-5.40)
[2017-03-14 08:00] VITALS: BP 100/60
--- NOTE | 2017-03-14 08:25 | PN- Endocrinology ---
Assessment/Plan Assessment: 87 yo female with PMH of COPD, hypothyroidism, hyperlipidemia, seizure disorder, possible TIA, pulmonary emoblus, and frequent UTI, who was admitted to after she had a mechanical fall on 02/14/2017. Patient was readmitted last night for altered mental status, significant sweling and dyspnea. Blood work showed TSH 21.2, free T 4 0.73 and TT3 1.02. At [facility], she was on Gravette thyroid 120 mg daily. On 03/08/2017, she was put on Levothyroxine 100 mcg iv daily. Patient was found to be in atrila fibrillation. Repeat free T4 was up to 1.01. Levothyroxine was decreased to 75 mcg iv daily. Her Troponin was mildly elevated She was put on heparin drip. Patient was transfered to ICU for respiratory failure. She was hypotensive and hypothermic. Her glucose level was low this morning. Now she is on hydrocortisone 100 mg iv every 8 hours, norepinephrine drip and D5 1/NS. Repeat TSH 6.55 and free T4 1.13. Plan: continue Levothyroxine 75 mg iv daily for now; continue other supportive treatment for now. will follow. Subjective Subjective: Patient is nonverbal at this point. Objective Last 24 Hrs of Vital Signs/I&O Vital Signs Date Time Temp Pulse Resp B/P B/P Pulse O2 O2 Flow FiO2 Mean Ox Delivery Rate 03/14 0400 80 Non 100% ReBreather 03/14 0000 84 Non 100% ReBreather 03/14 0000 95.0 105 20 94/40 84 Non 100% ReBreather 03/13 2155 101 20 11/65 03/13 2000 80 Venti Mask 100% 03/13 1930 78 Non 100% ReBreather 03/13 1608 90 80/0 03/13 1600 83 Non 100% ReBreather 03/13 1600 96.9 94 32 80/0 83 Non 100% ReBreather 03/13 1347 84 Non 100% ReBreather Intake & Output 03/14 1600 03/14 0800 03/14 0000 Intake Total 1060 1561 Output Total 20 50 Balance 1040 1511 Intake, IV 1060 1561 Output, Urine 20 50 Patient 209 lb Weight Weight Bed scale Measurement Method Results Pertinent Lab/Kurt Results: Laboratory Tests 03/14 03/14 0600 0351 Chemistry Sodium (137 - 145 mmol/L) 148 H Potassium (3.5 - 5.1 mmol/L) 4.3 Chloride (98 - 107 mmol/L) 111 H Carbon Dioxide (22 - 30 mmol/L) 23 Anion Gap (5 - 16) 13 BUN (7 - 17 mg/dL) 48 H Creatinine (0.5 - 1.0 mg/dL) 1.6 H Estimated GFR (>60 ml/min) 31 L Glucose (65 - 99 mg/dL) 60 L Calcium (8.4 - 10.2 mg/dL) 7.8 L Phosphorus (2.5 - 4.5 mg/dL) 6.6 H Magnesium (1.6 - 2.3 mg/dL) 2.0 Total Bilirubin (0.2 - 1.3 mg/dL) 1.1 AST (14 - 36 U/L) 46 H ALT (9 - 52 U/L) 46 Albumin (3.5 - 5.0 g/dL) 2.5 L TSH (0.270 - 4.200 uIU/mL) Cancelled 6.550 H Free T4 (0.85 - 1.93 ng/dL) Cancelled 1.13 Hematology CBC w Diff MAN DIFF ORDERED WBC (4.8 - 10.8 /CUMM) 17.6 H RBC (4.20 - 5.40 /CUMM) 4.81 Hgb (12.0 - 16.0 G/DL) 13.6 Hct (37 - 47 %) 44.9 MCV (81.0 - 99.0 FL) 93.4 MCH (27.0 - 31.0 PG) 28.2 RDW (11.5 - 14.5 %) 21.0 H Plt Count (130 - 400 /CUMM) 133 MPV (7.4 - 10.4 FL) 10.1 Gran % (42.2 - 75.2 %) 92.6 H Lymphocytes % (20.5 - 51.1 %) 1.6 L Monocytes % (1.7 - 9.3 %) 5.8 Eosinophils % (0 - 5 %) 0 Basophils % (0.0 - 2.0 %) 0 L Absolute Granulocytes (1.4 - 6.5 /CUMM) 16.3 H Segmented Neutrophils (42.2 - 75.2 %) 92 H Band Neutrophils (0.0 - 5.0 %) 1 Absolute Lymphocytes (1.2 - 3.4 /CUMM) 0.3 L Lymphocytes (20.5 - 51.1 %) 3 L Monocytes (1.7 - 9.3 %) 4 Absolute Monocytes (0.10 - 0.60 /CUMM) 1.0 H Absolute Eosinophils (0.0 - 0.7 /CUMM) 0 Absolute Basophils (0.0 - 0.2 /CUMM) 0 Nucleated RBCs (0.0 - 0.0 /100WBC) 3 H Platelet Estimate (ADEQUATE) ADEQUATE Polychromasia 1+ Hypochromic-Microcytic 1+ Poikilocytosis 1+ Target Cells RARE Ovalocytes 1+ PUBS MCHC (33.0 - 37.0 G/DL) 30.2 L Other Body Source Fld Total RBCs Counted (%) 100 03/13 03/13 03/13 1800 1349 1349 Blood Gas Bicarbonate Actual (22 - 26 MEQ/L) 12 L Mixed VBG pH (7.31 - 7.41 PH) 7.19 L Mixed VBG pCO2 (41 - 51 TORR) 31 L Mixed VBG O2 Saturation (35 - 45 TORR) 31 L P-50 (Temp Corrected) N Carboxyhemoglobin (1.5 - 5.0 %) 0.8 L O2 Concentration % 100% Temperature (97.0 - 100.0 FARH) 96.7 L O2 Delivery Method NRB Chemistry Sodium (137 - 145 mmol/L) 145 Potassium (3.5 - 5.1 mmol/L) 4.3 Chloride (98 - 107 mmol/L) 112 H Carbon Dioxide (22 - 30 mmol/L) 20 L Anion Gap (5 - 16) 13 BUN (7 - 17 mg/dL) 51 H Creatinine (0.5 - 1.0 mg/dL) 1.2 H Estimated GFR (>60 ml/min) 43 L BUN/Creatinine Ratio (7 - 25 %) 42.5 H Lactic Acid (0.7 - 2.1 mmol/L) 2.0 TSH (0.270 - 4.200 uIU/mL) 8.100 H Free T4 (0.85 - 1.93 ng/dL) 1.54 Thyroxine (T4) (4.5 - 10.9 ug/dL) 5.6 Coagulation PT (9.4 - 12.5 SEC) 29.2 H INR (0.90 - 1.19) 2.81 H Hematology CBC w Diff NO MAN DIFF REQ WBC (4.8 - 10.8 /CUMM) 11.8 H RBC (4.20 - 5.40 /CUMM) 4.69 Hgb (12.0 - 16.0 G/DL) 13.1 Hct (37 - 47 %) 43.2 MCV (81.0 - 99.0 FL) 92.2 MCH (27.0 - 31.0 PG) 28.0 RDW (11.5 - 14.5 %) 20.0 H Plt Count (130 - 400 /CUMM) 127 L MPV (7.4 - 10.4 FL) 9.9 Gran % (42.2 - 75.2 %) 89.9 H Lymphocytes % (20.5 - 51.1 %) 3.2 L Monocytes % (1.7 - 9.3 %) 6.9 Eosinophils % (0 - 5 %) 0 Basophils % (0.0 - 2.0 %) 0 L Absolute Granulocytes (1.4 - 6.5 /CUMM) 10.6 H Absolute Lymphocytes (1.2 - 3.4 /CUMM) 0.4 L Absolute Monocytes (0.10 - 0.60 /CUMM) 0.8 H Absolute Eosinophils (0.0 - 0.7 /CUMM) 0 Absolute Basophils (0.0 - 0.2 /CUMM) 0 PUBS MCHC (33.0 - 37.0 G/DL) 30.3 L Miscellaneous Phlebotomy Draw Site CENTRAL LINE Toxicology Digoxin (0.8 - 2.0 ng/mL) 1.4 03/13 03/13 1147 1147 Other Body Source Fluid WBC Cancelled Fld Total RBCs Counted Cancelled Fluid Albumin Cancelled
--- NOTE | 2017-03-14 08:47 | RADIOLOGY REPORT ---
EXAMINATION: XR PORTABLE CHEST CLINICAL INFORMATION: Respiratory failure and hypoxia. COMPARISON: Chest x-ray 03/13/2017 and 03/12/2017. TECHNIQUE: Portable frontal 45 degrees semierect view of the chest was obtained. FINDINGS: There is a left chest wall pacemaker with a single lead. There is an enteric tube extending below the level of the inferior margin of the image. The left lung is completely opacified, similar compared to the prior study. The cardiac silhouette size is difficult to assess due to the opacification of the left hemithorax. There is mediastinal shift to the left, unchanged. There is a moderate right-sided pleural effusion with adjacent opacification, consistent with atelectasis. Aeration on the right is slightly improved compared to prior imaging. IMPRESSION: 1. There is persistent opacification of the left hemithorax with mediastinal shift to the left. 2. There is a right-sided pleural effusion. There is slight improvement in the aeration of the right hemithorax.
[2017-03-14 08:55] LABS: PT 38.6 SEC (9.4-12.5)
--- NOTE | 2017-03-14 10:24 | PN- Infect Dx ---
Subjective Subjective: Temperature down to 95 on Hydrocortisone. Her blood pressure is borderline on Levophed. She is unable to provide any history. Objective Last 24 Hrs of Vital Signs/I&O Vital Signs Date Time Temp Pulse Resp B/P B/P Pulse O2 O2 Flow FiO2 Mean Ox Delivery Rate 03/14 0908 117 85/59 03/14 0905 81 Non 100% ReBreather 03/14 0400 80 Non 100% ReBreather 03/14 0000 84 Non 100% ReBreather 03/14 0000 95.0 105 20 94/40 84 Non 100% ReBreather 03/13 2155 101 20 11/65 03/13 2000 80 Venti Mask 100% 03/13 1930 78 Non 100% ReBreather 03/13 1608 90 80/0 03/13 1600 83 Non 100% ReBreather 03/13 1600 96.9 94 32 80/0 83 Non 100% ReBreather 03/13 1347 84 Non 100% ReBreather Intake & Output 03/14 1600 03/14 0800 03/14 0000 Intake Total 1060 1561 Output Total 20 50 Balance 1040 1511 Intake, IV 1060 1561 Output, Urine 20 50 Patient 209 lb Weight Weight Bed scale Measurement Method Physical Exam Other Physical Findings: She is awake but not alert, nonverbal and unresponsive on a 100% nonrebreather Lungs decreased breath sounds bilaterally Heart regular rhythm with a 1/6 systolic ejection murmur Abdomen is soft, with no obvious tenderness, positive bowel sounds Extremities 2+ edema both lower extremities; right femoral triple-lumen catheter in place Warner catheter remains in place with minimal urine output Results Last 24 Hours of Lab Results: Laboratory Tests 03/14 03/14 03/14 0820 0600 0351 Chemistry Sodium (137 - 145 mmol/L) 148 H Potassium (3.5 - 5.1 mmol/L) 4.3 Chloride (98 - 107 mmol/L) 111 H Carbon Dioxide (22 - 30 mmol/L) 23 Anion Gap (5 - 16) 13 BUN (7 - 17 mg/dL) 48 H Creatinine (0.5 - 1.0 mg/dL) 1.6 H Estimated GFR (>60 ml/min) 31 L Glucose (65 - 99 mg/dL) 60 L Calcium (8.4 - 10.2 mg/dL) 7.8 L Phosphorus (2.5 - 4.5 mg/dL) 6.6 H Magnesium (1.6 - 2.3 mg/dL) 2.0 Total Bilirubin (0.2 - 1.3 mg/dL) 1.1 AST (14 - 36 U/L) 46 H ALT (9 - 52 U/L) 46 Albumin (3.5 - 5.0 g/dL) 2.5 L TSH (0.270 - 4.200 uIU/mL) Cancelled 6.550 H Free T4 (0.85 - 1.93 ng/dL) Cancelled 1.13 Coagulation PT (9.4 - 12.5 SEC) 38.6 H INR (0.90 - 1.19) 3.72 H Hematology CBC w Diff MAN DIFF ORDERED WBC (4.8 - 10.8 /CUMM) 17.6 H RBC (4.20 - 5.40 /CUMM) 4.81 Hgb (12.0 - 16.0 G/DL) 13.6 Hct (37 - 47 %) 44.9 MCV (81.0 - 99.0 FL) 93.4 MCH (27.0 - 31.0 PG) 28.2 RDW (11.5 - 14.5 %) 21.0 H Plt Count (130 - 400 /CUMM) 133 MPV (7.4 - 10.4 FL) 10.1 Gran % (42.2 - 75.2 %) 92.6 H Lymphocytes % (20.5 - 51.1 %) 1.6 L Monocytes % (1.7 - 9.3 %) 5.8 Eosinophils % (0 - 5 %) 0 Basophils % (0.0 - 2.0 %) 0 L Absolute Granulocytes (1.4 - 6.5 /CUMM) 16.3 H Segmented Neutrophils (42.2 - 75.2 %) 92 H Band Neutrophils (0.0 - 5.0 %) 1 Absolute Lymphocytes (1.2 - 3.4 /CUMM) 0.3 L Lymphocytes (20.5 - 51.1 %) 3 L Monocytes (1.7 - 9.3 %) 4 Absolute Monocytes (0.10 - 0.60 /CUMM) 1.0 H Absolute Eosinophils (0.0 - 0.7 /CUMM) 0 Absolute Basophils (0.0 - 0.2 /CUMM) 0 Nucleated RBCs (0.0 - 0.0 /100WBC) 3 H Platelet Estimate (ADEQUATE) ADEQUATE Polychromasia 1+ Hypochromic-Microcytic 1+ Poikilocytosis 1+ Target Cells RARE Ovalocytes 1+ PUBS MCHC (33.0 - 37.0 G/DL) 30.2 L Other Body Source Fld Total RBCs Counted (%) 100 03/13 03/13 03/13 1800 1349 1349 Blood Gas Bicarbonate Actual (22 - 26 MEQ/L) 12 L Mixed VBG pH (7.31 - 7.41 PH) 7.19 L Mixed VBG pCO2 (41 - 51 TORR) 31 L Mixed VBG O2 Saturation (35 - 45 TORR) 31 L P-50 (Temp Corrected) N Carboxyhemoglobin (1.5 - 5.0 %) 0.8 L O2 Concentration % 100% Temperature (97.0 - 100.0 FARH) 96.7 L O2 Delivery Method NRB Chemistry Sodium (137 - 145 mmol/L) 145 Potassium (3.5 - 5.1 mmol/L) 4.3 Chloride (98 - 107 mmol/L) 112 H Carbon Dioxide (22 - 30 mmol/L) 20 L Anion Gap (5 - 16) 13 BUN (7 - 17 mg/dL) 51 H Creatinine (0.5 - 1.0 mg/dL) 1.2 H Estimated GFR (>60 ml/min) 43 L BUN/Creatinine Ratio (7 - 25 %) 42.5 H Lactic Acid (0.7 - 2.1 mmol/L) 2.0 TSH (0.270 - 4.200 uIU/mL) 8.100 H Free T4 (0.85 - 1.93 ng/dL) 1.54 Thyroxine (T4) (4.5 - 10.9 ug/dL) 5.6 Coagulation PT (9.4 - 12.5 SEC) 29.2 H INR (0.90 - 1.19) 2.81 H Hematology CBC w Diff NO MAN DIFF REQ WBC (4.8 - 10.8 /CUMM) 11.8 H RBC (4.20 - 5.40 /CUMM) 4.69 Hgb (12.0 - 16.0 G/DL) 13.1 Hct (37 - 47 %) 43.2 MCV (81.0 - 99.0 FL) 92.2 MCH (27.0 - 31.0 PG) 28.0 RDW (11.5 - 14.5 %) 20.0 H Plt Count (130 - 400 /CUMM) 127 L MPV (7.4 - 10.4 FL) 9.9 Gran % (42.2 - 75.2 %) 89.9 H Lymphocytes % (20.5 - 51.1 %) 3.2 L Monocytes % (1.7 - 9.3 %) 6.9 Eosinophils % (0 - 5 %) 0 Basophils % (0.0 - 2.0 %) 0 L Absolute Granulocytes (1.4 - 6.5 /CUMM) 10.6 H Absolute Lymphocytes (1.2 - 3.4 /CUMM) 0.4 L Absolute Monocytes (0.10 - 0.60 /CUMM) 0.8 H Absolute Eosinophils (0.0 - 0.7 /CUMM) 0 Absolute Basophils (0.0 - 0.2 /CUMM) 0 PUBS MCHC (33.0 - 37.0 G/DL) 30.3 L Miscellaneous Phlebotomy Draw Site CENTRAL LINE Toxicology Digoxin (0.8 - 2.0 ng/mL) 1.4 03/13 03/13 1147 1147 Other Body Source Fluid WBC Cancelled Fld Total RBCs Counted Cancelled Fluid Albumin Cancelled Last 24 Hours of Kurt Results: Blood cultures 2 March 13 negative Urine culture March 13 negative Recent Imaging Studies: Chest x-ray March 14, personally reviewed, reveals persistent opacification of the left hemithorax with a mediastinal shift to the left and a moderate right pleural effusion with adjacent opacification Assessment/Plan Impression: Condition has further deteriorated now with hypothermia, hypotension, requiring pressors, acute renal failure and ongoing respiratory failure with complete opacification of the left hemithorax, likely secondary to a combination of atelectasis and fluid, with pneumonia possible though less likely. She is on empiric treatment with Vancomycin and Ceftazidime for possible sepsis with her blood and urine cultures so far negative and, given her renal failure, her antibiotic doses will need to be adjusted. Her prognosis remains quite poor with efforts to change her overall level of care noted. Suggestion: 1. Would continue efforts to change her overall level of care to comfort measures 2. Follow-up recent cultures 3. Vancomycin random level on this morning's labs 4. Hold further Vancomycin pending above, but can re-dose with 1 g IV 1 if level is less than 15 5. Decrease Ceftazidime to 1 g IV every 24 hours
--- NOTE | 2017-03-14 10:30 | PN- CRCU ---
Subjective HPI/Critical Care Issues: Continues to do poorly with hyothermia and hypoperfusion on max dose of levo Poor urineout pt unresponsive Other history could not be obtained Daughter at the bedside Objective Current Medications: Current Medications Sig/Liudmila Start time Last Medication Dose Route Stop Time Status Admin Acetaminophen 650 MG Q6P PRN 03/08 0115 AC PO Acetaminophen 1,000 MG Q6P PRN 03/08 0115 AC 03/08 IV 0918 Acetylcysteine 2 ML BID 03/13 2200 AC 03/14 INH 0854 Acetylcysteine 2 ML TID 03/13 1244 DC INH Albuterol Sulfate 3 ML BID 03/13 2200 AC 03/14 INH 0853 Albuterol Sulfate 3 ML Q4P PRN 03/10 1145 DC INH Ceftazidime 1,000 MG Q12H 03/13 1600 AC 03/14 IV 0434 Collagenase 1 ANUPAM DAILY 03/08 1400 AC 03/14 TOP 0908 Digoxin 0.125 MG DAILY@1400 03/10 1400 AC 03/12 PO 1553 Diltiazem HCl 30 MG TID 03/12 1600 AC PO Furosemide 60 MG ONCE ONE 03/13 1815 DC 03/13 IV 03/13 1816 1835 Furosemide 40 MG 7:30 AM, & 4:30 PM 03/08 0730 AC 03/11 IV 1628 Glycerin 2 SPRAY Q2P PRN 03/09 1430 AC 03/10 PO 1037 Hydrocortisone 100 MG Q8 03/13 2200 AC 03/14 Sodium Succinate IV 0515 Levothyroxine Sodium 75 MCG DAILY 03/11 1000 AC 03/13 IV 0841 Morphine Sulfate 2 MG Q4P PRN 03/12 2330 AC IV Norepinephrine 4 MG .STK-MED ONE 03/13 1731 DC IV 03/13 1732 Norepinephrine 4 MG Q24H 03/13 1615 AC 03/13 Sodium Chloride 250 ML IV 2214 Norepinephrine 4 MG .STK-MED ONE 03/13 1602 DC IV 03/13 1603 Pantoprazole Sodium 40 MG BID 03/11 1403 AC 03/14 IV 0908 Phenytoin 100 MG BID 03/08 1000 AC 03/14 Sodium Chloride 50 ML IV 0908 Polyethylene Glycol 17 GM DAILY 03/09 1333 AC 03/11 PO 0844 Senna/Docusate Sodium 2 TAB DAILY PRN 03/09 1345 AC 03/11 PO 0830 Sodium Chloride 1,000 ML Q13H 03/10 1200 AC 03/14 IV 0613 Vancomycin HCl 1,000 MG Q24H 03/13 1600 AC 03/13 Sodium Chloride 250 ML IV 1837 Vital Signs & I&O Last 24 Hrs of Vitals and I&O: Vital Signs Date Time Temp Pulse Resp B/P B/P Pulse O2 O2 Flow FiO2 Mean Ox Delivery Rate 03/14 0908 117 85/59 03/14 0905 81 Non 100% ReBreather 03/14 0400 80 Non 100% ReBreather 03/14 0000 84 Non 100% ReBreather 03/14 0000 95.0 105 20 94/40 84 Non 100% ReBreather 03/13 2155 101 20 11/03/13 2000 80 Venti Mask 100% 03/13 1930 78 Non 100% ReBreather 03/13 1608 90 80/0 03/13 1600 83 Non 100% ReBreather 03/13 1600 96.9 94 32 80/0 83 Non 100% ReBreather 03/13 1347 84 Non 100% ReBreather Intake & Output 03/14 1600 03/14 0800 03/14 0000 Intake Total 1060 1561 Output Total 20 50 Balance 1040 1511 Intake, IV 1060 1561 Output, Urine 20 50 Patient 209 lb Weight Weight Bed scale Measurement Method Laboratory Tests 03/14 03/14 03/14 0820 0600 0351 Chemistry Sodium (137 - 145 mmol/L) 148 H Potassium (3.5 - 5.1 mmol/L) 4.3 Chloride (98 - 107 mmol/L) 111 H Carbon Dioxide (22 - 30 mmol/L) 23 Anion Gap (5 - 16) 13 BUN (7 - 17 mg/dL) 48 H Creatinine (0.5 - 1.0 mg/dL) 1.6 H Estimated GFR (>60 ml/min) 31 L Glucose (65 - 99 mg/dL) 60 L Calcium (8.4 - 10.2 mg/dL) 7.8 L Phosphorus (2.5 - 4.5 mg/dL) 6.6 H Magnesium (1.6 - 2.3 mg/dL) 2.0 Total Bilirubin (0.2 - 1.3 mg/dL) 1.1 AST (14 - 36 U/L) 46 H ALT (9 - 52 U/L) 46 Albumin (3.5 - 5.0 g/dL) 2.5 L TSH (0.270 - 4.200 uIU/mL) Cancelled 6.550 H Free T4 (0.85 - 1.93 ng/dL) Cancelled 1.13 Coagulation PT (9.4 - 12.5 SEC) 38.6 H INR (0.90 - 1.19) 3.72 H Hematology CBC w Diff MAN DIFF ORDERED WBC (4.8 - 10.8 /CUMM) 17.6 H RBC (4.20 - 5.40 /CUMM) 4.81 Hgb (12.0 - 16.0 G/DL) 13.6 Hct (37 - 47 %) 44.9 MCV (81.0 - 99.0 FL) 93.4 MCH (27.0 - 31.0 PG) 28.2 RDW (11.5 - 14.5 %) 21.0 H Plt Count (130 - 400 /CUMM) 133 MPV (7.4 - 10.4 FL) 10.1 Gran % (42.2 - 75.2 %) 92.6 H Lymphocytes % (20.5 - 51.1 %) 1.6 L Monocytes % (1.7 - 9.3 %) 5.8 Eosinophils % (0 - 5 %) 0 Basophils % (0.0 - 2.0 %) 0 L Absolute Granulocytes (1.4 - 6.5 /CUMM) 16.3 H Segmented Neutrophils (42.2 - 75.2 %) 92 H Band Neutrophils (0.0 - 5.0 %) 1 Absolute Lymphocytes (1.2 - 3.4 /CUMM) 0.3 L Lymphocytes (20.5 - 51.1 %) 3 L Monocytes (1.7 - 9.3 %) 4 Absolute Monocytes (0.10 - 0.60 /CUMM) 1.0 H Absolute Eosinophils (0.0 - 0.7 /CUMM) 0 Absolute Basophils (0.0 - 0.2 /CUMM) 0 Nucleated RBCs (0.0 - 0.0 /100WBC) 3 H Platelet Estimate (ADEQUATE) ADEQUATE Polychromasia 1+ Hypochromic-Microcytic 1+ Poikilocytosis 1+ Target Cells RARE Ovalocytes 1+ PUBS MCHC (33.0 - 37.0 G/DL) 30.2 L Other Body Source Fld Total RBCs Counted (%) 100 07/11 07/11 07/11 1800 1349 1349 Blood Gas Bicarbonate Actual (22 - 26 MEQ/L) 12 L Mixed VBG pH (7.31 - 7.41 PH) 7.19 L Mixed VBG pCO2 (41 - 51 TORR) 31 L Mixed VBG O2 Saturation (35 - 45 TORR) 31 L P-50 (Temp Corrected) N Carboxyhemoglobin (1.5 - 5.0 %) 0.8 L O2 Concentration % 100% Temperature (97.0 - 100.0 FARH) 96.7 L O2 Delivery Method NRB Chemistry Sodium (137 - 145 mmol/L) 145 Potassium (3.5 - 5.1 mmol/L) 4.3 Chloride (98 - 107 mmol/L) 112 H Carbon Dioxide (22 - 30 mmol/L) 20 L Anion Gap (5 - 16) 13 BUN (7 - 17 mg/dL) 51 H Creatinine (0.5 - 1.0 mg/dL) 1.2 H Estimated GFR (>60 ml/min) 43 L BUN/Creatinine Ratio (7 - 25 %) 42.5 H Lactic Acid (0.7 - 2.1 mmol/L) 2.0 TSH (0.270 - 4.200 uIU/mL) 8.100 H Free T4 (0.85 - 1.93 ng/dL) 1.54 Thyroxine (T4) (4.5 - 10.9 ug/dL) 5.6 Coagulation PT (9.4 - 12.5 SEC) 29.2 H INR (0.90 - 1.19) 2.81 H Hematology CBC w Diff NO MAN DIFF REQ WBC (4.8 - 10.8 /CUMM) 11.8 H RBC (4.20 - 5.40 /CUMM) 4.69 Hgb (12.0 - 16.0 G/DL) 13.1 Hct (37 - 47 %) 43.2 MCV (81.0 - 99.0 FL) 92.2 MCH (27.0 - 31.0 PG) 28.0 RDW (11.5 - 14.5 %) 20.0 H Plt Count (130 - 400 /CUMM) 127 L MPV (7.4 - 10.4 FL) 9.9 Gran % (42.2 - 75.2 %) 89.9 H Lymphocytes % (20.5 - 51.1 %) 3.2 L Monocytes % (1.7 - 9.3 %) 6.9 Eosinophils % (0 - 5 %) 0 Basophils % (0.0 - 2.0 %) 0 L Absolute Granulocytes (1.4 - 6.5 /CUMM) 10.6 H Absolute Lymphocytes (1.2 - 3.4 /CUMM) 0.4 L Absolute Monocytes (0.10 - 0.60 /CUMM) 0.8 H Absolute Eosinophils (0.0 - 0.7 /CUMM) 0 Absolute Basophils (0.0 - 0.2 /CUMM) 0 PUBS MCHC (33.0 - 37.0 G/DL) 30.3 L Miscellaneous Phlebotomy Draw Site CENTRAL LINE Toxicology Digoxin (0.8 - 2.0 ng/mL) 1.4 03/13 03/13 03/13 03/13 03/13 1147 1147 0700 0700 0600 Coagulation PT Cancelled INR Cancelled Other Body Source Fluid WBC Cancelled Cancelled Fld Total RBCs Counted Cancelled Cancelled Fluid Albumin Cancelled Cancelled 03/12 03/12 03/12 2232 2230 2230 Chemistry Sodium (137 - 145 mmol/L) Cancelled 145 Potassium (3.5 - 5.1 mmol/L) Cancelled 4.0 Chloride (98 - 107 mmol/L) Cancelled 110 H Carbon Dioxide (22 - 30 mmol/L) Cancelled 23 Anion Gap (5 - 16) Cancelled 12 BUN (7 - 17 mg/dL) Cancelled 45 H Creatinine (0.5 - 1.0 mg/dL) Cancelled 1.1 H Estimated GFR (>60 ml/min) 47 L BUN/Creatinine Ratio (7 - 25 %) Cancelled 40.9 H Lactic Acid (0.7 - 2.1 mmol/L) 2.3 H Cortisol AM Sample Cancelled Cortisol PM Sample (1.7 - 14.1) > 123.0 H Hematology CBC w Diff MAN DIFF ORDERED WBC (4.8 - 10.8 /CUMM) 11.5 H RBC (4.20 - 5.40 /CUMM) 4.53 Hgb (12.0 - 16.0 G/DL) 12.7 Hct (37 - 47 %) 41.5 MCV (81.0 - 99.0 FL) 91.7 MCH (27.0 - 31.0 PG) 28.0 RDW (11.5 - 14.5 %) 18.6 H Plt Count (130 - 400 /CUMM) 133 MPV (7.4 - 10.4 FL) 10.1 Gran % (42.2 - 75.2 %) 88.6 H Lymphocytes % (20.5 - 51.1 %) 3.6 L Monocytes % (1.7 - 9.3 %) 7.8 Eosinophils % (0 - 5 %) 0 Basophils % (0.0 - 2.0 %) 0 L Absolute Granulocytes (1.4 - 6.5 /CUMM) 10.2 H Segmented Neutrophils (42.2 - 75.2 %) 85 H Band Neutrophils (0.0 - 5.0 %) 5 Absolute Lymphocytes (1.2 - 3.4 /CUMM) 0.4 L Lymphocytes (20.5 - 51.1 %) 1 L Monocytes (1.7 - 9.3 %) 8 Absolute Monocytes (0.10 - 0.60 /CUMM) 0.9 H Absolute Eosinophils (0.0 - 0.7 /CUMM) 0 Absolute Basophils (0.0 - 0.2 /CUMM) 0 Metamyelocytes (0.0 - 1.0 %) 1 Nucleated RBCs (0.0 - 0.0 /100WBC) 1 H Platelet Estimate (ADEQUATE) DECREASED Polychromasia 1+ Poikilocytosis 2+ Ovalocytes 1+ PUBS MCHC (33.0 - 37.0 G/DL) 30.5 L Toxicology Digoxin (0.8 - 2.0 ng/mL) 1.4 03/12 03/12 03/12 03/12 2220 1100 1100 1100 Blood Gas pH (7.35 - 7.45 PH) 7.30 *L pCO2 (35 - 45 TORR) 44 pO2 (80 - 100 TORR) 42 *L HCO3 (21 - 28 MEQ/L) 22 ABG O2 Sat (Measured) (>96.0 %) 71.0 L P-50 (Temp Corrected) N Carboxyhemoglobin (1.5 - 5.0 %) 1.1 L O2 Concentration % 4L Temperature (97.0 - 100.0 FARH) 96.7 L O2 Delivery Method NC Hematology Lymphocytes (%) 16 % Normal PMNs (%) 2 Miscellaneous Phlebotomy Draw Site RIGHT BRACHIAL Other Body Source Fluid WBC (0 - 5 /CUMM) 306 H Fld Mesothelial Cells (%) Fld Total RBCs Counted (0 /CUMM) 49 H Fluid Glucose (mg/dL) 65 Fluid Total Protein (g/dL) < 2.0 Fluid Albumin (g/dL) < 1.0 Fluid LDH (U/L) 248 Pleural pH (PH) 7.33 Microbiology Date/Time Procedure - Status Source Growth 03/13 2345 Urine Culture - RECD URINE ROUT 03/13 1830 Blood Culture - RECD BLOOD 03/13 1815 Blood Culture - RECD BLOOD 03/13 1501 Respiratory Culture - COLB LOWER RESP 03/13 1501 Gram Stain - COLB LOWER RESP 03/13 1147 Body Fluid Culture - CAN BODY FLUID Cancelled: Cancelled via OE: Per MD Decision 03/13 1147 Gram Stain - CAN BODY FLUID Cancelled: Cancelled via OE: Per MD Decision 03/13 0700 Body Fluid Culture - COLB BODY FLUID 03/13 0700 Gram Stain - COLB BODY FLUID 03/12 1100 Body Fluid Culture - RES BODY FLUID 03/12 1100 Gram Stain - RES BODY FLUID Impression/Plan Impression/Plan Impression/Plan: General Appearance unresponsive Skin left arm weeping edema, decub noted HEENT PERRLA, EOMI Neck Supple Cardiovascular irregular rhythm Lungs no breath sounds on RLL, b/l crackles Abdomen edematous soft abdomen Neurological groaning HWANG, unresponsive to voice Extremities No Clubbing (anasarca) IMPRESSION This is an 87-year-old lady with previous history of [id number] smoking history, emphysema as noted in the CAT scan, 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 Her issues include * Severe shock multifactorial on max levo - sepsis with multiple organ failure and other sig endo and met factors * Recent deterioration with resp faiure and hypotension prob sepsis vs other causes. * Left lung collapse, with effusion as well * Multiple organ failure, sig hepatic dysfunction, high INR, * Bilateral pleural effusions with generalized anasarca most likely related to significant hypothyroidism, diastolic dysfunction with hypoalbuminemia. Previous thora was a transudate in the rt side * Remote history of pulmonary embolism with no clinical evidence suggestive of active venous thromboembolism and patient is appropriately anticoagulated * Profound hypothyroidism most likely contributing to her anasarca and edema * Altered mental status with multiple issues including history of previous seizure, with hypoperfusion * Supratherapeutic INR due to hepatic dysfunction * Diastolic heart diease * Decubiti ulcer related to multiple factors as noted above RECOMMENDATION Discussed with patients daughter extensively and discussed limitations of care as she is DNR and DNI and daughter does not wish intubation or escalation of care REC Cont broadspectrum abx COnt levofed and do not start any other pressors COnt bearhugger COnt iv levoxyl and steroids COnt face mask Agg suction Duet to excessive coagulopathy and sig resp failure pt not a candidate for thora at this time as change in her position could cause resp failure and will be unsafe, and pt may end up with trapped lung as she has lung collapse due to mucus plugging HOld tube feedings,as she is on max pressors * dnr and dni and no other agg care and no escalation of care * No Dialysis or any other life support ie BIpap etc (as it is contraindicated and pts daughter does not wish intubation * prog poor, if pt becomes more hypotensive will institute low dose morphine for comfort * pt is critically ill tts40 mins
--- NOTE | 2017-03-14 10:43 | NUR ---
[id number]: PATIENT REMAINS UNRESPONSIVE, PUPILS EQUAL AND REACTIVE. NO EYE TRACKING OR FOLLOWING COMMANDS. +PULSES. AFIB ON MONITOR WITH PVC'S. LEVO GTT REMAINS MAXED AT 20MCG OR 75ML. IVF RUNNING AT 75ML/HR THROUGH RIGHT GROIN TLC, +BLOOD RETURN, DRESSING INTACT. RECTAL TEMP 92.3 PLCED ON BEAR HUGGER, RECTAL TEMP REMAINS LOW, DR FERNANDEZ IN TO DISCUSS POC WITH FAMILY. NO OTHER PRESSORS TO BE GIVEN. PRN MORPHINE FOR RESPIRATORY DISTRESS. 2 SKIN TEARS TO DARNELL AND LFA, OPEN TO AIR. WOUND TO COCCYX DRESSING CHANGED, SANTYL, GAUZE AND ABD PAD. TURNED AND REPOSITIONED. MOUTH CARE PROVIDED. DAUGHTER REMAINS AT BEDSIDE. ROSA CALLED FOR PRAYER. BOLTON REMAINS IN PLACE WITH MINIMAL IVANA URINE OUTPUT. INR 3.72.
--- NOTE | 2017-03-14 11:10 | NUR ---
JUSTIN CROOKS TURNED OFF AT THIS TIME
--- NOTE | 2017-03-14 11:53 | PN- Resident CRCU ---
Impression/Plan Plan DVT/Prophylaxis: mechanical, pharmacological
[2017-03-14 11:56] VITALS: BP 100/60
--- NOTE | 2017-03-14 12:43 | NUR ---
PATIENT MD DONALD MEDINA AT BEDSIDE, ALONG WITH THIS RN AND PATIENTS DAUGHTER AND SON, PRONOUNCED AT 12:16. [facility] CALLED. ADMITTING NOTIFIED. TRANSIT WORKER AWARE.
--- NOTE | 2017-03-14 14:30 | Event Note ---
Event Note Event Note: This morning patient was still on 100% nonrebreather mask but saturations were better up to 92%. She was totally confused and not responding to verbal or painful stimuli. Because of her low temperature down to 92 she was placed on Bear hugger. She was maxed out on Levophed and blood pressure was in the range of 100-94/60-40. She was also tachycardic. Goals of care were discussed further with Daughter again by Dr. Man. He also discussed limitations of care as she was DNR/DNI and daughter did not want intubation or escalation of care. Due to excessive coagulopathy and significant resp failure pt was not a candidate for thoracentesis at that moment. She was started on 1 mg IV morphine every 1 hour as needed for comfort. David called for prayer per daughter request. At 12 PM patient heart rate started dropping. Her breathing was shallow. Her blood pressure was 80/59 on maximum dose of Levophed. She was pronounced at 12:16 PM. Family was consoled. Causes leading to were acute respiratory arrest secondary to left lung collapse due to effusion and possible mucus plugging. She was also in septic shock with multiple organ failure. Possible sources of infection were lungs ? pneumonis vs UTI.
== END 2017-03-14 12:16 | disposition expired | DRG 291 ==
LOC: ERH 17:47 → ERHI 22:36 → 1NO 22:36 → ERHI 23:30 → CRI 23:30 → ENRESERV 03-08 00:14 → 1NO 03-08 01:42 → ERHI 03-08 01:42 → 1NO 03-08 09:43 → CRI 03-12 22:50
PROVIDERS: Hospitalist; Internal Medicine; Internal Medicine Cardiovascular Disease; Internal Medicine Infectious Disease; Physician Assistant; Student in an Organized Health Care Education/Training Program; ADMIT Student in an Organized Health Care Education/Training Program
PROC: 0W993ZZ Drainage of Right Pleural Cavity, Percutaneous Approach (ICD-10-PCS; principal; 2017-03-12)
PROC: 06HN33Z Insertion of Infusion Device into Left Femoral Vein, Percutaneous Approach (ICD-10-PCS; 2017-03-13)
DX: I50.33 Acute on chronic diastolic (congestive) heart failure (principal); J96.01 Acute respiratory failure with hypoxia; R65.21 Severe sepsis with septic shock; E43 Unspecified severe protein-calorie malnutrition; A41.9 Sepsis, unspecified organism; I95.9 Hypotension, unspecified; N17.9 Acute kidney failure, unspecified; I07.1 Rheumatic tricuspid insufficiency; L89.153 Pressure ulcer of sacral region, stage 3; J91.8 Pleural effusion in other conditions classified elsewhere; J98.19 Other pulmonary collapse; J44.9 Chronic obstructive pulmonary disease, unspecified; E03.9 Hypothyroidism, unspecified; G40.909 Epilepsy, unspecified, not intractable, without status epilepticus; I48.0 Paroxysmal atrial fibrillation; Z86.711 Personal history of pulmonary embolism; L98.491 Non-pressure chronic ulcer of skin of other sites limited to breakdown of skin; Z68.30 Body mass index [BMI] 30.0-30.9, adult; R68.0 Hypothermia, not associated with low environmental temperature; Z66 Do not resuscitate; Z79.01 Long term (current) use of anticoagulants; Z95.0 Presence of cardiac pacemaker; Z87.891 Personal history of nicotine dependence; Z85.42 Personal history of malignant neoplasm of other parts of uterus; Z86.718 Personal history of other venous thrombosis and embolism
CPT/HCPCS: 1NP; 87075; CCU; ERO; 36415; 80307; 81001; 82436; 87040; 87070; 87071; 87086; 87147; 93005; 93010; 93308; 93321; 96374; 96375; 99291; J0131; J0713; J1160; J1165; J1644; J1720; J1940; J3370; J7040; J7608